=== PATIENT | male | born 1955 | race Caucasian/White ===

== ENCOUNTER 2025-04-26 11:52 | Emergency (ER) | payer MEDICARE, OTHER, SELFPAY ==
[2025-04-26] VITALS (43 sets, daily range): BP systolic 118–154; BP diastolic 31–77; PULSE 64–80; RESP 15–20; TEMP 36.6; O2SAT 90–100
--- NOTE | ~2025-04-26 | CT_ITS ---
EXAMINATION: CT abdomen pelvis w con DATE: 04/26/2025 13:56 INDICATION: Status post prostatectomy. Suprapubic pain. TECHNIQUE: Computed tomography (CT) of the abdomen and pelvis was performed with 100 cc Omnipaque 350 intravenous contrast. The dose-length product was 650.22 mGy-cm. Automated exposure control and iterative reconstruction technique were employed. COMPARISON: None. FINDINGS: There is right middle and lower lobe airspace consolidation. Heart size normal. There is fr ee fluid in the right upper abdomen and pelvis. There are is loculated fluid along the pelvic sidewal ls. Cannot exclude abscess. Small amount of free intraperitoneal air, consistent with recent surgery. There are focal hyperdensities dependently in the gallbladder, suspicious for stones. There is atherosclerosis of the aorta. No lymphadenopathy. Nonobstructive bowel gas pattern. Mild annamaria ateral hydronephrosis. Fatty infiltration of the liver. Gallbladder is distended. The spleen, pancrea s, adrenal glands are unremarkable. No lymphadenopathy. There is gas in the inguinal canals bilateral ly, also likely from recent surgery. IMPRESSION: 1. Gas in the inguinal canals with free fluid in the abdomen and trace free intraperitoneal air. Thes e findings are compatible with recent surgery. More loculated fluid along the pelvic sidewalls is non specific. This may be postsurgical as well, although hemorrhage or infection are not excluded. 2: Right middle and bilateral lower lobe airspace consolidation which may represent atelectasis or d eveloping pneumonia. 3: Mild bilateral hydronephrosis. 4: Possible cholelithiasis. Reviewed, dictated and finalized at location A. IMPRESSION: 1. Gas in the inguinal canals with free fluid in the abdomen and trace free int raperitoneal air. These findings are compatible with recent surgery. More locul ated fluid along the pelvic sidewalls is nonspecific. This may be postsurgical as well, although hemorrhage or infection are not excluded. 2: Right middle and bilateral lower lobe airspace consolidation which may repr esent atelectasis or developing pneumonia. 3: Mild bilateral hydronephrosis. 4: Possible cholelithiasis.
--- OUTSIDE RECORDS SUMMARY | 2025-04-26 12:04 | XMS_ITS | Clinical Summary ---
Author Organization [facility] Address [address] [place] [address] Care Team Providers Care Interactive Digital Media Specialist Name Role Phone Unavailable Primary Care Provider Unavailabl e Social History Tobacco Use Types Packs/Day Years Used Date Smoking Tobacco: Never Assessed Sex and Gender Information Value Date Recorded Sex Assigned at Not on file Legal Sex Male 3:24 PM PST Gender Identity Not on file Sexual Orientation Not on file Plan of Treatment Not on file
--- OUTSIDE RECORDS SUMMARY | 2025-04-26 12:04 | XMS_ITS | Encounter Summary ---
Author Organization [facility] Healthcare Address [address] [place] [address] Care Team Providers Care Chief Librarian Circulation Department Name Role Phone Keagan Saldana MD Primary Care Provider [phone] Mikel Villeda MD Unavailable [phone] Alan Medina MD Unavailable [phone] Wali Boyce MD Unavailable [phone] Antonio Reddy MD Unavailable [phone] Andrea Sam MD Unavailable [phone] Sony Marina MD PhD Unavailable [phone] Luther Cameron MD Unavailable [phone] Encounter Details Date Type Department Care Team (Late st Contact Info) Description 01/06/2021 Telephone [facility] [address] [place] [id number] Margo Velarde, RT Social History Tobacco Use Types Packs/Day Years Used Date Smoking Tobacco: Never Smokeless Tobacco: Never Alcohol Use Standard Drinks/Week Comments Yes 2 (1 standard drink = 0.6 oz pur e alcohol) once weekly AUDIT-C Answer Date Recorded Frequency of Alcohol Consumption 2-4 times a tue08/01/2019 Average Number of Drinks Not on file 019 Frequency of Binge Drinking Not on file 07/05 PHQ-2 Answer Date Recorded PHQ-2 Total Score (If total score is 3 or more points, staff should administer the PHQ-9) 0 11/05/2020 Sex and Gender Information Value Date Recorded Sex Assigned at Not on file Legal Sex Male 1:30 PM CDT Gender Identity Male 03/11/2021 9:12 AM CDT Sexual Orientation Straight 03/11/2021 9: 12 AM CDT documented as of this encounter Plan of Treatment Not on file documented as of this encounter Visit Diagnoses Not on filedocumented in this encounter Additional Health Concerns Infection Onset Date Last Indicated Resolved Time COVID: Recovered Comment:09/24/20 covid 19 RNA= positive from outside facility No hospitalization 10/04/2020 01/26/2021 02/01/2021 3:05 AM C DT Exposure, COVID-19 Comment:Added automatically based on COVID19 lab answers indicating exposure risk 03/22/2022 03/22/2022 03/22/2022 9:30 PM C DT COVID: Suspected 03/22/2022 03/22/2022 03/22/2022 9:30 PM CDT COVID19 03/22/2022 03/22/2022 04/01/2022 3:05 AM CDT COVID: Recovered Comment:Added based on recent COVID infection. 04/01/2022 04/09/2022 07/30/2022 3:05 AM C DT COVID: Suspected 10/10/2024 10/10/2024 10/10/2024 7:33 PM PLATING INSPECTOR COVID19 10/10/2024 10/10/2024 10/20/2024 3:05 AM PLATING INSPECTOR COVID: Recovered Comment:Added based on recent COVID infection. 10/20/2024 10/23/2024 01/18/2025 3:05 AM C DT documented as of this encounter Care Teams Chief Librarian Circulation Department Relationship Specialty Start Date End Date [place] [address] PCP - General Family Medicine 11/05/20 Mikel Villeda MD [address] [place] [address] Surgeon Plastic Surgery 11/23/21 Alan Medina MD [address] [place] [address] Certified Registered Locksmith Cardiology 11/23/21 Wali Boyce MD [address] [place] [address] Urologist Urology 11/23/21 Antonio Reddy MD [address] [place] [address] Urologist Urology 11/23/21 Andrea Sma MD [address] [place] [address] Care Program Director Gastroenterology 11/23/21 Sony Marina MD PhD [address] [place] [address] Radiation Oncologist Radiation Oncology 02/01/25 [place] [address] [address] Consulting Physician Urology 02/01/25 documented as of this encounter
--- OUTSIDE RECORDS SUMMARY | 2025-04-26 12:04 | XMS_ITS | Encounter Summary ---
Author Organization [facility] Health Address [address] [place] [address] Care Team Providers Care Radio Reporter Name Role Phone Unavailable Primary Care Provider Unavailabl e Prior Encounters Date Type Department Care Team Description 10/22/2019 Converted 13x Documents [facility] [address] [place] [phone] <No scans attached> 10/22/2019 Converted CPS Chart Documents [facility] [address] [place] [phone] <No scans attached> Plan of Treatment Not on file Procedures Procedure Name Priority Date/Time Associated Diagnosis Comments 20 MOD AMALGAM 3 SURFACE Routine 013 2:00 AM DANCE COACH 19 AMALGAM 3 SURFACE Routine 013 2:00 AM DANCE COACH 17 AMALGAM 3 SURFACE Routine 013 2:00 AM DANCE COACH 31 MO AMALGAM 2 SURFACE Routine 10/28/19 13 2:00 AM DANCE COACH 21 DO AMALGAM 2 SURFACE Routine 10/28/19 13 2:00 AM DANCE COACH 14 ENDODONTIC THERAPY, MOLAR TOOTH (EXCLUDING FINAL PROTESTANT) Routine 10/28/2012 2:00 AM DANCE COACH TOPICAL APPLICATION OF FLUORIDE VARNISH Routine 10/28/2012 2:00 AM DANCE COACH PROPHYLAXIS - ADULT Routine 10/28/2012 2 :00 AM DANCE COACH COMPREHENSIVE ORAL EVALUATION - NEW OR ESTABLISHED PATIENT Routine 10/28/2012 2:00 AM DANCE COACH PANORAMIC RADIOGRAPHIC IMAGE Routine 10/28/2012 2:00 AM DANCE COACH INTRAORAL - COMPREHENSIVE SERIES OF RADIOGRAPHIC IMAGES Routine 10/28/2012 2:00 AM DANCE COACH INTRAORAL PHOTO Routine 10/28/2012 2:00 AM DANCE COACH INTRAORAL PHOTO Routine 10/28/2012 2:00 AM DANCE COACH INTRAORAL PHOTO Routine 10/28/2012 2:00 AM DANCE COACH INTRAORAL PHOTO Routine 10/28/2012 2:00 AM DANCE COACH Visit Diagnoses Not on file
--- OUTSIDE RECORDS SUMMARY | 2025-04-26 12:05 | XMS_ITS | Encounter Summary ---
Author Organization [facility] Healthcare Address [address] [place] [address] Care Team Providers Care Fuel Island Attendant Name Role Phone Keagan Saldana MD Primary Care Provider [phone] Mikel Villeda MD Unavailable [phone] Alan Medina MD Unavailable [phone] Wali Boyce MD Unavailable [phone] Antonio Reddy MD Unavailable [phone] Andrea Sam MD Unavailable [phone] Encounter Details Date Type Department Care Team (Late st Contact Info) Description 07/07/2023 1:23 PM CDT Hospital Encounter [facility] [address] [phone] Social History Tobacco Use Types Packs/Day Years Used Date Smoking Tobacco: Never Cigarettes Smokeless Tobacco: Current Chew Alcohol Use Standard Drinks/Week Comments Yes 2 (1 standard drink = 0.6 oz pur e alcohol) once weekly AUDIT-C Answer Date Recorded Q1: How often do you have a drink containing alc ohol? Monthly or less 04/17/2025 Q2: How many drinks containi ng alcohol do you have on a typical day when you are drinking? 1 or 2 04/17/2025 Q3: How often do you have si x or more drinks on one occasion? Never 04/17/2025 PHQ-2 Answer Date Recorded PHQ-2 Total Score (If total score is 3 or more points, staff should administer the PHQ-9) 0 12/17/2024 Personal Safety Answer Date Recorded Have you ever been in or are you currently in a harmful physical or emotional relationship or is someone making you feel afraid or unsafe? Denies 04/24/2025 Sex and Gender Information Value Date Recorded Sex Assigned at Not on file Legal Sex Male 1:30 PM CDT Gender Identity Male 03/11/2021 9:12 AM CDT Sexual Orientation Straight 03/11/2021 9: 12 AM CDT documented as of this encounter Functional Status * Audit-C Score Answer Date of Assessment Author 1 04/17/2025 6:55 AM CDT Glenn Nuñez RN * Question Answer Date of Assessment Author Q1: How often do you have a drink containing alcohol? Monthly or less 04/17/2025 6:55 AM PRADEEPT Mercy Nuñez RN Q2: How many drinks containing alcohol do you have on a typical day when you are drinking? 1 or 2 04/17/2025 6:55 AM PRADEEPT Mercy Nuñez RN Q3: How often do you have six or more drinks on one occasion? Never 04/17/2025 6:55 AM PRADEEPT Mercy Nuñez RN documented as of this encounter Plan of Treatment Not on file documented as of this encounter Procedures Procedure Name Priority Date/Time Associated Diagnosis Comments XR FOOT RIGHT 3 OR MORE VIEWS Schedule Routine, Read Routine (OP Routine) 07/07/2023 1:31 PM CDT Osteoarthritis of first metatarsophalangeal (MTP) joint of right foot documented in this encounter Results * XR Foot Right 3+ Vw (07/07/2023 1:31 PM CDT) Anatomical Region Laterality Modality Lower Extremities, Foot Right Computed Radiography Narrative 07/07/2023 1:31 PM CDT Right foot three views weight-bearing shows significant arthritis hallux MTP joint with significant large dorsal spurring as well. There is almost no joint space evident radiographically. No significant change from the 08/30/2022 radiographs. Marcello Storey Jr., MD IMG XR PROCEDURES F inal Result documented in this encounter Visit Diagnoses Not on filedocumented in this encounter Additional Health Concerns Infection Onset Date Last Indicated Resolved Time COVID: Suspected 10/10/2024 10/10/2024 10/10/2024 7:33 PM LEAD MINER BLASTING COVID19 10/10/2024 10/10/2024 10/20/2024 3:05 AM LEAD MINER BLASTING COVID: Recovered Comment:Added based on recent COVID infection. 10/20/2024 10/23/2024 01/18/2025 3:05 AM C DT documented as of this encounter Care Teams Fuel Island Attendant Relationship Specialty Start Date End Date Keagan Saldana MD [address] [place] [address] PCP - General Family Medicine 11/05/20 Mikel Villeda MD [address] [place] [address] Surgeon Plastic Surgery 11/23/21 Alan Medina MD [address] [place] [address] Trackmobile Operator Cardiology 11/23/21 Wali Boyce MD [address] [place] [address] Urologist Urology 11/23/21 Antonio Reddy MD [address] [place] [address] Urologist Urology 11/23/21 Andrea Sam MD [address] [place] [address] [place] [address] Kitchen Clerk Gastroenterology 11/23/21 documented as of this encounter
--- OUTSIDE RECORDS SUMMARY | 2025-04-26 12:06 | XMS_ITS | Encounter Summary ---
Author Name [facility] Organization [facility] Address [address] [place] [address] Care Team Providers Care Carton And Can Supply Supervisor Name Role Phone BREONNA BRUMFIELD Primary Care Provider UnavailRICARDO Martínez Unavailable Unavailable VELIA ALLEN Primary Care Provider GAY Kirk Unavailable Unavailable CURTIS PRESTON Unavailable Unavailable JAMES BARNEY Unavailable Unavailable CARMINA JULIO Unavailable Unavailable THIERRY ROSAS Unavailable Unavailable BIANCA MARS Unavailable Unavailable Insurance Providers: All historical and current Section Date Range: From patient's date of to the date document was created. This section includes the names of all active insurance providers for the patient. Insurance Provider Type of Coverage Plan Name Start of Policy Coverage End of Policy Coverage Group Number Member ID Insurance Provider's Telephone Number Policy Rey's Name Patient's Relationship to Policy Rey MEDICARE (WNR) MEDICARE (M) PART A Jan 01, 2015 PART A [id number] KIRK MARTINEZ PATIENT MEDICARE (WNR) MEDICARE (M) PART A Jan 01, 2015 PART A [id number] KIRK MARTINEZ PATIENT [facility] Jan 01, 2015 [facility] [id number] [facility] [address] [facility], 2018 [facility] [id number] KIRK MARTINEZ PATIENT [facility] MEDICAL ACTIV E DUTY NA KIRK MARTINEZ PATIENT Selected Encounter This section includes the information on record at [place] for the Encounter. Date/Time Encounter Type Encounter Description Reason Pro vider Source Oct 05, 2024 11:55 AM Outpatient Encounter COMMUNITY CARE CONSULT IHE Encounter Template Text not used by VA Plan of Treatment: Future Appointments (+ 6 months) and Future Tests (+/- 45 days) The Plan of Treatment section includes future care activities for the patient from all [place] treatmentfacilities. This section includes future appointments and future orders which are active, pending or scheduled. Future Appointments This section includes appointments that were scheduled to occur 6 months from the date of the Encounter, up to a maximum of 20 appointments. The data comes from all [place] treatment facilities. Appointment Date/Time Appointment Type Appointme nt Facility Name Oct 29, 2024 01:00 PM AMBULATORY - NONE [facility] Social History: Smoking Status (Most current) and Tobacco Use (All prior to encounter date) This section includes the most current, and the historical, smoking and tobacco- related health factors from the [place] facility where the Encounter took place. Current Smoking Status This section includes the most current smoking, or tobacco-related health factor, from the [place] facility where the Encounter took place. Date/Time Current Smoking Status Comment Vanessa ity Dec 29, 2022 01:15 PM VA-TOBACCO USER EVERY DAY [facility] Tobacco Use History This section includes a history of the smoking, or tobacco-related health factors, that were collected on or before the date of the Encounter. The data comes from the [place] facility where the Encounter took place. Date/Time Smoking Status/Tobacco Use Comment F acility Dec 29, 2022 01:15 PM VA-TOBACCO USE 5 TO 15 YEARS [facility] Dec 29, 2022 01:15 PM VA-TOBACCO USE ADVICE [facility] Dec 29, 2022 01:15 PM VA-TOBACCO USE VISUAL SUPERVISOR NO [facility] Dec 29, 2022 01:15 PM VA-TOBACCO USE MED NO [facility] Dec 29, 2022 01:15 PM VA-TOBACCO USER EVERY DAY [facility] Jan 01, 2022 01:15 PM VA-TOBACCO NEVER USED [facility] Dec 17, 2020 01:15 PM VA-TOBACCO DOESNT USE WI 30 MIN WAKEUP [facility] Dec 17, 2020 01:15 PM VA-TOBACCO USE 5 TO 15 YEARS [facility] Dec 17, 2020 01:15 PM VA-TOBACCO USE ADVICE [facility] Dec 17, 2020 01:15 PM VA-TOBACCO USE VISUAL SUPERVISOR NO [facility] Dec 17, 2020 01:15 PM VA-TOBACCO USE MED NO [facility] Dec 17, 2020 01:15 PM VA-TOBACCO USER EVERY DAY [facility] Encounter Notes: All associated encounter notes This section contains the clinical notes associated to the Encounter. Date/Time Encounter Note(s) Provider Source Oct 05, 2024 11:55 AM NONVA NOTE: LOCAL TITLE: COMMUNITY CARE-REQUEST FOR SERVICE NOTE [facility] STANDARD TITLE: NONVA NOTE DATE OF NOTE: OCT 05, 2024@11:55 ENTRY DATE: OCT 05, 2024@11:55:13 AUTHOR: RAN NAVARROIGNER: URGENCY: STATUS: COMPLETED Request for Services (RFS) documentation has been sent for scanning to [facility] Community Care Consult: COMMUNITY CARE-COMMUNITY CARE-[facility] DENTAL GEN Consult No: [id number] Date sent to scanning: Oct A Request for Service (RFS) form [id number] has been received which includes the following: Care Requested: [id number] PARTIAL DENTURE RETRAINER-CROWN TOOTH #30,28 [id number] PARTIAL DENTURE PONTIC PORCELALIN TOOTH #29 [id number] BUILDUP, INCLUDING ANY PINS TOOTH #28,30 ADA, note, xray in preauth folder Date VA received request: Oct Date service required: Oct Requesting Community Provider Information: Name of Ordering Provider: Dr Leah Barrios [facility] Leah Barrios [address] [place] [address] Group Specialty: Dentist - [place] Network: [facility] Region 2 /ivet/ [facility] RN Signed: 10/05/2024 12:03 Receipt Acknowledged By: 10/08/2024 10:18 /ivet/ Bryanna Huerta DDS Staff Dentist [facility]ARR[facility]
--- NOTE | 2025-04-26 12:07 | ED_ITS ---
HPI - Abdominal Pain General Chief Complaint: Urogenital-Male Stated Complaint: abdominal pain after surgery Time Seen by Provider: 04/26/25 12:04 Source: patient Mode of arrival: ambulatory Limitations: no limitations History of Present Illness HPI narrative: 69-year-old male with a history of hypertension, dyslipidemia, arthritis had robotic assisted prostatectomy on 04/17/2025. Subsequently the patient developed -- lower abdominal pain on 04/23/2025. -- Hematuria with pink urine. -- [facility] where he had his Damon's catheter discontinued. He had blood work which revealed mildly elevated white cell count. UA was noted to have increased white cell with 1+ leukocyte esterase and negative nitrite. Urine culture was noted to be negative. Patient received pain medication and oxybutynin. He continues to have lower abdominal pain. Has pink urine. No fever or chills. Pain is intermittent and appears to decrease on standing up. No radiation of the pain. No exacerbating or relieving factors. ecchymosis of the lower abdomen and bilateral flanks MD elicited complaint: abdominal pain Pertinent past history: other ( Status post prostatectomy) Onset (ago): day(s) ( 3 days) Pain Consistency: intermittent Severity: severe Quality: cramping Radiation: none Exacerbating factors: nothing Relieving factors: nothing Associated symptoms: denies other symptoms Related Data Allergies Allergy/AdvReac Type Severity Reaction Status Date / Time No Known Allergies Allergy Verified 04/26/25 12:09 Review of Systems 2 Review of Systems: All systems reviewed & are unremarkable except as noted in HPI and below Constitutional: Constitutional: Reports as per HPI and Reports no additional constitutional complaints Eyes: Eyes: Reports as per HPI and Reports no additional eye complaints ENT: Reports system reviewed and no additional complaints, except as documented and Reports as per HPI Cardiovascular: Cardiovascular: Reports as per HPI and Reports no additional cardiovascular complaints Respiratory: Respiratory: Reports as per HPI and Reports no additional respiratory complaints Gastrointestinal: Gastrointestinal: Reports as per HPI, Reports no additional gastrointestinal complaints and Reports abdominal pain Genitourinary: Genitourinary: Reports no additional male genitourinary complaints, Reports as per HPI and Reports hematuria Musculoskeletal: Musculoskeletal: Reports no additional musculoskeletal complaints and Reports as per HPI Integumentary/Breasts: Skin/Breast: Reports system reviewed and no additional complaints, except as docu and Reports as per HPI Comments: extensive ecchymoses over the lower abdomen and bilateral flanks Neurologic: Reports system reviewed and no additional complaints, except as documented and Reports as per HPI Psychiatric: Psychiatric: Reports no additional psychiatric complaints and Reports as per HPI Endocrine: Endocrine: Reports no additional endocrine complaints and Reports as per HPI Hematologic/Lymphatic: Hematologic/Lymphatic: Reports no additional hematologic/lymphatic complaints and Reports as per HPI Allergic/Immunologic: Allergic/Immunologic: Reports no additional allergic/immunologic complaints and Reports as per HPI [facility] Past Medical History Medical History (Updated 04/26/25 @ 15:56 by Brant Crowder MD) Anxiety Dyslipidemia Hypertension Surgical History Surgical History (Updated 04/26/25 @ 12:25 by Brant Crowder MD) H/O prostatectomy Exam 2 Narrative: afebrile. vitals are stable. Const: General: ill appearing Orientation/consciousness: patient oriented x3 HENMT: Head: normal to inspection Ears: external ears normal F kady/Nose/Sinus: Normal external nose present Face and sinus: normal facial exam Mouth: Yes Normal oral and palatal mucosa present Throat: posterior oropharynx normal Eyes: Conjunctivae: conjunctivae normal Pupils: Equal, round and reactive pupils present EOM: EOMs intact bilaterally Direct Ophthalmoscopy: no photophobia Neck: Neck: normal visual inspection, no lymphadenopathy and no meningeal signs Resp: Effort & Inspection: normal respiratory effort Auscultation: clear to auscultation bilaterally Cardio: Rate: regular rate Rhythm: regular rhythm GI: GI Palp: Yes Soft to palpation Other: Lower abdominal tenderness with rebound. No flank or CVA angle tenderness. Bowel sounds are present normally. : General: Yes no CVA tenderness Back/Spine/Pelvis: Back: no CVA tenderness Skin: Other: Extensive ecchymosis of the lower abdomen and bilateral fla Neuro: General: patient oriented x3, moves all extremities, no meningeal signs, no focal motor deficits and CN's II-XI intact bilaterally Cranial nerves: Yes Nystagmus not present Speech: normal speech Extrem: General: normal to inspection and no clubbing, cyanosis or edema Psych: Mental Status: mental status grossly normal Affect: normal affect Attitude: cooperative Course Course Emergency Course: lower abdominal pain-- patient is noted to Have a WBC count of 11.6. got a CT of abdomen and pelvis which revealed mild hydronephrosis. No other acute findings. Patient had a post void urine of 560 acute on chronic renal failure with a BUN/creatinine of 22/1.84 which is up from his baseline creatinine of 1.2. Give the flu patient 1 L of IV fluids. Anemia with an H&H of . Discussed with Dr. Hsu who advised Damon's catheterization and antibiotics ceftriaxone followed by cefdinir for 1 week. passed Damon's catheter on the 1st attempt without any difficulty. Vital Signs Vital signs: Vital Signs Temperature 36.6 C 04/26/25 11:52 Pulse Rate 66 04/26/25 11:52 Respiratory Rate 16 04/26/25 11:52 Blood Pressure 124/53 L 04/26/25 11:52 Pulse Oximetry 97 04/26/25 11:52 Oxygen Delivery Room Air 04/26/25 11:52 Temperature 36.6 C 04/26/25 11:52 Pulse Rate 66 04/26/25 11:52 Respiratory Rate 16 04/26/25 11:52 Blood Pressure 124/53 L 04/26/25 11:52 Pulse Oximetry 97 04/26/25 11:52 Oxygen Delivery Room Air 04/26/25 11:52 MDM - Abdominal Pain MDM Narrative Medical decision making narrative: Abdominal pain retention of urine status post prostatectomy urinary tract infection right lung atelectasis acute renal failure anemia Lab Data 04/26/25 12:37 04/26/25 12:37 Labs: Lab Results 04/26/25 04/26/25 Range/Units 12:28 12:37 WBC 11.6 H (4.8-10.8) K/mm3 RBC 3.56 L (4.70-6.10) M/mm3 Hgb 11.0 L (12.4-15.3) g/dL Hct 32.9 L (37.0-46.0) % MCV 92.4 (78.0-102.0) fL MCH 30.9 (27.0-31.0) pg MCHC 33.4 (32-36) g/dL RDW 13.4 (11.6-14.4) % Plt Count 252 (150-420) K/mm3 MPV 9.4 (8.7-11.0) fl Immature Gran % (Auto) 0.8 H (0.0-0.0) % Neut % (Auto) 78.4 H (50.0-70.0) % Lymph % (Auto) 7.1 L (18.0-42.0) % [place] % (Auto) 5.5 (2.0-11.0) % Eos % (Auto) 7.9 H (1.0-6.0) % Baso % (Auto) 0.3 (0.0-1.0) % Lymph # (Auto) 0.82 L (1.10-4.50) K/mm3 [place] # (Auto) 0.64 (0.10-0.90) K/mm3 Eos # (Auto) 0.91 H (0.02-0.50) K/mm3 Baso # (Auto) 0.03 (0.00-0.10) K/mm3 Abs Immat Gran (auto) 0.09 H (0.00-0.00) K/mm3 Absolute Neuts (auto) 9.06 H (1.70-7.20) K/mm3 Absolute Nucleated RBC 0.00 (0.00-0.00) K/mm3 Nucleated RBC % 0.0 (0-0.0) % PT 11.2 (9.50-12.1) Seconds INR 1.0 APTT 38.4 H (23.9-30.70) Sec Sodium 135 L (137-145) mmol/L Potassium 4.2 (3.4-5.0) mmol/L Chloride 101 (98-107) mmol/L Carbon Dioxide 28 (22-30) mmol/L Anion Gap 6 (4-12) mmol/L BUN 22 H (9-20) mg/dL Creatinine 1.84 H (0.7-1.3) mg/dL Estim Creat Clear Calc 38 ml/min Estimated GFR 37 L (59 - ) Glucose 107 (65-110) mg/dL Calculated Osmolality 283 L (285-295) mOsm/kg Lactic Acid 0.7 (0.4-2.0) mmol/L Calcium 8.9 (8.4-10.2) mg/dL Total Bilirubin 1.8 H (0.2-1.3) mg/dL AST 33 (17-59) U/L ALT 28 (6-50) U/L Alkaline Phosphatase 88 (38-126) U/L Total Protein 6.1 L (6.3-8.2) g/dL Albumin 3.5 (3.5-5.1) g/dL Lipase 15 L (23-300) U/L Urine Color Dark orange (Yellow) Urine Appearance Clear (Clear) Urine pH 5.5 (5.0-8.0) Ur Specific [place] <= 1.005 L (1.010-1.020) Urine Protein Negative (Negative) Urine Glucose (UA) Trace H (Negative) Urine Ketones Negative (Negative) Ur Blood (Man) 2+ H (Negative) Urine Nitrate Positive H (Negative) Urine Bilirubin Negative (Negative) Urine Urobilinogen 1.0 (0.2-1.0) mg/dL Leukocyte Esterase Rfl Negative (Negative) [place]IS/UL Urine RBC 6-10 H (0-2) /hpf Urine WBC None seen (0-3) /hpf Ur Squamous Epith Cells Few (Few) /hpf Urine Bacteria 1+ H (None) /hpf Imaging Data Radiologist's impression: ITS Impressions Abdomen/Pelvis CT 04/26/25 13:59 IMPRESSION: 1. Gas in the inguinal canals with free fluid in the abdomen and trace free intraperitoneal air. These findings are compatible with recent surgery. More loculated fluid along the pelvic sidewalls is nonspecific. This may be postsurgical as well, although hemorrhage or infection are not excluded. 2: Right middle and bilateral lower lobe airspace consolidation which may represent atelectasis or developing pneumonia. 3: Mild bilateral hydronephrosis. 4: Possible cholelithiasis. Discharge Plan Discharge Clinical Impression: Acute retention of urine Urinary tract infection Qualifiers: Urinary tract infection type: site unspecified Hematuria presence: with hematuria Qualified Code(s): N39.0 - Urinary tract infection, site not specified Acute on chronic renal failure Qualifiers: Acute renal failure type: unspecified Chronic kidney disease stage: stage 3 (moderate) Chronic kidney disease stage 3 subtype: stage 3b (GFR 30-44) Q ualified Code(s): N17.9 - Acute kidney failure, unspecified Patient Disposition: Home Condition: Stable Instructions: Antibiotic Form, Urinary Retention in Men (ED), Urinary Tract Infection in Men (ED), Damon Catheter Placement and Care (ED) Patient Language: Mongolian Prescriptions: New cefdinir 300 mg capsule 300 mg PO Q12H Qty: 14 0RF Follow-up/Referrals: Les,MD Keagan [Primary Care Provider] - Time of Disposition: 15:57
--- OUTSIDE RECORDS SUMMARY | 2025-04-26 12:07 | XMS_ITS | Clinical Summary ---
Author Organization [facility] Address [address] [place] [address] Phone Care Team Providers Care Set Designer Name Role Phone Provider, None Primary Care Provider Unavailabl e Allergies No known active allergies Medications Escitalopram Oxalate (LEXAPRO) 5 MG Tablet Take 5 mg by mouth daily. Active Meloxicam 15 MG Tablet Take 15 mg by mouth daily. Active atorvastatin (LIPITOR) 20 MG Tablet Take 20 mg by mouth daily. Active Active Problems No known active problems Immunizations Immunization Administration Dates Next Due Influenza Vaccine greater than 3 yrs 07/12/2016 Social History Tobacco Use Types Packs/Day Years Used Date Smoking Tobacco: Never Tobacco Cessation:Counseling Given: No Alcohol Use Standard Drinks/Week Comments Not Asked 0 (1 standard drink = 0.6 oz pur e alcohol) Sex and Gender Information Value Date Recorded Sex Assigned at Not on file Legal Sex Male 1:12 PM MAILROOM MESSENGER Gender Identity Not on file Sexual Orientation Not on file Last Filed Vital Signs Vital Sign Reading Time Taken Comments Blood Pressure 147/80 11/27/2016 1:24 PM MAILROOM MESSENGER Pulse 72 11/27/2016 1:24 PM MAILROOM MESSENGER Temperature 36.8 C (98.3 F) 11/27/2016 1:24 PM MAILROOM MESSENGER Respiratory Rate 16 11/27/2016 1:24 PM MAILROOM MESSENGER Oxygen Saturation 96% 11/27/2016 1:24 PM MAILROOM MESSENGER Inhaled Oxygen Concentration - - Weight 90.7 kg (200 lb) 11/27/2016 1:24 PM MAILROOM MESSENGER Height 185.4 cm (6' 1) 11/27/2016 1:24 PM MAILROOM MESSENGER Body Mass Index 26.39 11/27/2016 1:24 PM MAILROOM MESSENGER Plan of Treatment Health Maintenance Due Date Last Done Comments Hepatitis C Virus (HCV) Screening 1955 TdaP Immunization 1955 Cologuard 12/03/2000 Colonoscopy 12/03/2000 Colorectal Cancer Screening 12/03/2000 Immunochemical Fecal Occult Blood 12/03/2000 Pneumococcal Immunization (5 0+ years) (1 of 1 - PCV) 12/03/2005 Zoster Immunization (2 of 2) 09/18/2020 07/24/2020 SARS-COV-2 Immunization (4 - season) 2024 08/13/2021, 01/16/2021, 12/26/2020 Influenza Immunization (#1) 06/03/202507/04, 07/12/2016 Respiratory Syncytial Virus (RSV) Immunization (Adult) (1 - 1-dose 75+ series) 12/03/2030 Hepatitis B Immunization Aged Out No longer eligible based on patient's age to complete this topic Human Papillomavirus (HPV) Immunization Aged Out No longer eligible b ased on patient's age to complete this topic Meningococcal Immunization (ACWY) Aged Out No longer eligible b ased on patient's age to complete this topic Rotavirus Immunization Aged Out No lo nger eligible based on patient's age to complete this topic Care Teams Set Designer Relationship Specialty Start Date End Date Provider, None [place] PCP - General 11/27/16
--- OUTSIDE RECORDS SUMMARY | 2025-04-26 12:07 | XMS_ITS | Encounter Summary ---
Author Name [facility] Address [address] [place] [address] Care Team Providers Care Printer'S Devil Name Role Phone VELIA ALLEN Primary Care Provider GAY Kirk Unavailable Unavailable CURTIS PRESTON Unavailable Unavailable JAMES BARNEY Unavailable Unavailable CARMINA JULIO Unavailable Unavailable THIERRY ROSAS Unavailable Unavailable BIANCA MARS Unavailable Unavailable BREONNA BRUFMIELD Primary Care Provider UnavailRICARDO Martínez Unavailable Unavailable Insurance Providers: All historical and [...] PART A Jan 01, 2015 PART A [id number] KIRK MARTINEZ PATIENT MEDICARE (WNR) MEDICARE (M) PART A Jan 01, 2015 PART A [id number] [phone] KIRK MARTINEZ PATIENT [facility] Jan 01, 2015 [facility] [id number] [facility] [address] [facility], [id number] KIRK MARTINEZ PATIENT [facility] MEDICAL ACTIV E DUTY NA KIRK MARTINEZ PATIENT Selected Encounter This section includes the information on record at [place] for the Encounter. Date/Time Encounter Type Encounter Description Reason Pro vider Source Oct 08, 2024 10:59 AM Outpatient Encounter COMMUNITY CARE CONSULT IHE Encounter Template Text not used by VA Plan of Treatment: Future Appointments (+ 6 months) and Future Tests (+/- 45 days) The Plan of Treatment section includes future care activities for the patient from all [place] treatmentfacilities. This section includes future appointments and future orders which are active, pending or scheduled. Future Appointments This section includes appointments that were scheduled to occur 6 months from the date of the Encounter, up to a maximum of 20 appointments. The data comes from all [place] treatment facilities. Appointment Date/Time Appointment Type Appointme nt Facility Name Oct 29, 2024 01:00 PM AMBULATORY - NONE [facility] Social History: Smoking Status (Most current) and Tobacco Use (All prior to encounter date) This section includes the most current, and the historical, smoking and tobacco- related health factors from the [place] facility where the Encounter took place. Current Smoking Status This section includes the most current smoking, or tobacco-related health factor, from the [place] facility where the Encounter took place. Date/Time Current Smoking Status Comment Vanessa ity Dec 29, 2022 01:15 PM VA-TOBACCO USER EVERY DAY [facility] Tobacco Use History This section includes a history of the smoking, or tobacco-related health factors, that were collected on or before the date of the Encounter. The data comes from the [place] facility where the Encounter took place. Date/Time Smoking Status/Tobacco Use Comment F acility Dec 29, 2022 01:15 PM VA-TOBACCO USE 5 TO 15 YEARS [facility] Dec 29, 2022 01:15 PM VA-TOBACCO USE ADVICE [facility] Dec 29, 2022 01:15 PM VA-TOBACCO USE MANAGER SOCIAL WORK NO [facility] Dec 29, 2022 01:15 PM VA-TOBACCO USE MED NO [facility] Dec 29, 2022 01:15 PM VA-TOBACCO USER EVERY DAY [facility] Jan 01, 2022 01:15 PM VA-TOBACCO NEVER USED [facility] Dec 17, 2020 01:15 PM VA-TOBACCO DOESNT USE WI 30 MIN WAKEUP [facility] Dec 17, 2020 01:15 PM VA-TOBACCO USE 5 TO 15 YEARS [facility] Dec 17, 2020 01:15 PM VA-TOBACCO USE ADVICE [facility] Dec 17, 2020 01:15 PM VA-TOBACCO USE MANAGER SOCIAL WORK NO [facility] Dec 17, 2020 01:15 PM VA-TOBACCO USE MED NO [facility] Dec 17, 2020 01:15 PM VA-TOBACCO USER EVERY DAY [facility] Encounter Notes: All associated encounter notes This section contains the clinical notes associated to the Encounter. Date/Time Encounter Note(s) Provider Source Oct 08, 2024 10:59 AM LETTERS: LOCAL TITLE: [facility]-REQUEST FOR SERVICES (RFS) LETTER STANDARD TITLE: LETTERS DATE OF NOTE: OCT 08, 2024@10:59 ENTRY DATE: OCT 08, 2024@10:59:42 AUTHOR: RAN NAVARROIGNER: URGENCY: STATUS: COMPLETED [facility] [address] [place] [address] [place] [address] Dear Provider, Information: Patient Name: SARAH MARTINEZ Date of : Dec [facility] Dental Service has received the request for [id number] PARTIAL DENTURE RETRAINER-CROWN TOOTH #30,28 [id number] PARTIAL DENTURE PONTIC PORCELALIN TOOTH #29 [id number] BUILDUP, INCLUDING ANY PINS TOOTH #28,30 from you for services that were not originally authorized in the [facility] for this [place]. Upon review, the following determination has been made: Service has been approved. (Authorization #[id number]) Should you have questions, please contact us at [phone] to speak with a patient service writer. As a reminder, if applicable, return medical records within 30 days for routine services. Sincerely, [facility]AN [facility]ARRO [facility]
--- OUTSIDE RECORDS SUMMARY | 2025-04-26 12:07 | XMS_ITS | Clinical Summary ---
Author Organization [facility] Address [address] [place] [address] Care Team Providers Care [employer] Psychologist Name Role Phone Unavailable Primary Care Provider Unavailabl e Medications testosterone (Fortesta) 10 mg/0.5 gram /actuation Gel in Metered-dose Pump Apply 4 pumps to the skin daily as directed. 180 Gram 04/28/2023 1:00 PM CDT 3 Active eszopiclone (LUNESTA) 3 mg Tablet Take 1 Tablet (3 mg) by mouth daily at bedtime. 90 Tablet 08/30/2023 2:08 PM [employer] 3 Active HYDROcodone-ac etaminophen (NORCO) 5-325 mg tablet Take 1-2 Tablets by mouth every 4-6 hours as needed for pain. 50 Tablet 09/02/2023 11:57 AM [employer] 3 Active famotidine (PEPCID) 20 mg tablet Take 1 Tablet (20 mg) by mouth daily. 90 Tablet 3 10/04/2023 12:08 PM [employer] 3 Active clonazePAM (KlonoPIN) 0.5 mg Tablet Take 0.5-1 tablet by mouth daily as needed for anxiety. 14 Tablet 2 01/17/2024 12:56 PM CDT 4 Active testosterone 10 mg/0.5 gram /actuation Gel in Metered-dose Pump Place 40 mg ( 4 pumps ) on the skin daily. 90 Gram 5 09/19/2024 2:51 PM [employer] 4 Active methylPREDNISo lone (MEDROL DOSPACK) 4 mg Tablets, Dose Pack Take as directed on package 21 Each 05/01/2024 12:01 PM CDT 4 Active fluticasone propionate (FLONASE) 50 mcg/spray [place], Suspension nasal inhaler Administer 2 sprays in each nostril once daily 16 Gram 6 05/01/2024 12:01 PM CDT 4 Active tamsulosin (FLOMAX) 0.4 mg capsule Take 1 Capsule (0.4 mg) by mouth 2 times daily. 180 Capsule 3 02/26/2025 8:25 AM CDT 4 Active famotidine (PEPCID) 40 mg tablet Take 1 tablet (40 mg total) by mouth nightly 90 Tablet 3 06/26/2024 7:35 PM CDT 4 Active meloxicam (MOBIC) 15 mg tablet Take 1 Tablet (15 mg) by mouth daily at bedtime. 90 Tablet 3 02/26/2025 8:25 AM CDT 5 Active atorvastatin (LIPITOR) 20 mg tablet Take 1 Tablet (20 mg) by mouth daily at bedtime. 90 Tablet 3 02/26/2025 8:25 AM CDT 5 Active busPIRone (BUSPAR) 5 mg tablet Take 1 tablet (5 mg total) by mouth 3 (three) times a day as needed (anxiety/panic attack) 30 Tablet 2 12/17/2024 4:36 PM CDT 5 Active azithromycin (ZITHROMAX) 250 mg tablet TAKE 2 TABLETS BY MOUTH A SINGLE DOSE ON DAY 1, THEN TAKE 1 TABLET BY MOUTH ONCE DAILY ON DAYS 2 THRU 5. 6 Tablet 02/02/2025 11:51 AM CDT 5 Active escitalopram oxalate (LEXAPRO) 20 mg tablet Take 1 tablet (20 mg total) by mouth daily 90 Tablet 3 02/18/2025 3:47 PM CDT 5 Active escitalopram oxalate (LEXAPRO) 20 mg tablet Take 1 Tablet (20 mg) by mouth daily. 90 Tablet 3 5 Active clonazePAM (KlonoPIN) 0.5 mg Tablet Take 1 tablet (0.5 mg total) by mouth daily as needed for anxiety 14 Tablet 2 04/09/2025 2:37 PM CDT 5 Active eszopiclone (LUNESTA) 3 mg Tablet Take 1 Tablet (3 mg) by mouth daily at bedtime. 90 Tablet 04/25/2025 1:13 PM CDT 5 Active phenazopyridin e 200 mg tablet Take 1 tablet (200 mg total) by mouth 3 (three) times a day for 5 days 15 Tablet 04/25/2025 1:13 PM CDT 5 04/30/20 25 Active eszopiclone (LUNESTA) 3 mg Tablet Take 1 tablet (3 mg total) by mouth nightly 90 Tablet 01/25/2025 12:09 PM CDT 5 04/19/20 25 Discontinu ed(Reorder ) Social History Tobacco Use Types Packs/Day Years Used Date Smoking Tobacco: Never Assessed Sex and Gender Information Value Date Recorded Sex Assigned at Not on file Legal Sex Male 12:24 PM CDT Gender Identity Not on file Sexual Orientation Not on file Plan of Treatment Health Maintenance Due Date Last Done Comments DTAP/TDAP/TD VACCINES (1 - Tdap) 12/03/1974 COLORECTAL SCREENING 12/03/2000 Colorectal Cancer Screening 12/03/2000 FIT-DNA Q 3 years 12/03/2000 FIT/FOBT Q 1 year 12/03/2000 Flex Sig/CT Colonography Q 5 years 12/03/2000 PNEUMOCOCCAL VACCINE 50+ YEARS (1 of 1 - PCV) 12/04/19 06 ZOSTER VACCINE (1 of 2) 12/03/2005 INFLUENZA VACCINE (#1) 2025 RSV VACCINE (60+ or ) (1 - 1-dose 75+ series) 12/03/2030 Insurance [employer]
--- OUTSIDE RECORDS SUMMARY | 2025-04-26 12:07 | XMS_ITS | Continuity of Care Document ---
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 It does not include entries that were removed or entered in error. 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 Condition DoD Contracture, left hand Active 2016 Condition DoD Encounter for screening for malignant neoplasm of prostate Active 2016 Condition DoD Major depressive disorder, single episode, unspecified Active 2016 Condition DoD Elevated prostate specific antigen [PSA] Active 2015 Condition DoD Obstructive sleep apnea (adult) (pediatric) Active 2015 Condition DoD Testicular dysfunction, unspecified Active 2015 Condition DoD Congenital insufficiency of aortic valve Active 2015 Condition DoD Thoracic aortic aneurysm, without rupture Active 2015 Condition DoD Benign prostatic hyperplasia without lower urinary tract symptoms Active 2014 Condition DoD Cervical radiculopathy Active Condition [facility] Cervicalgia Active Condition [facility] Gastroesophageal reflux disease Active Condition [facility] Hypercholesterolemi a Active Condition [facility] Hypertension Active Condition [facility] Insomnia Active Condition [facility] Major depressive disorder Active Condition [facility] Neoplasm of prostate Active Condition [facility] Tinnitus Active Condition [facility] 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 DoD Dermatochalasis of unspecified eye, unspecified eyelid Active Condition DoD Osteoarthritis of knee, unspecified Active Condition DoD Hydrocele, unspecified Active Condition DoD insomnia Active Condition DoD neck pain Active Condition DoD PNEUMONIA Active Condition DoD Aftercare Orthopedic Active Condition DoD EPIDIDYMITIS RIGHT Inactive Condition Do D SCROTUM DISORDERS Active Condition DoD Eyelid Dermatochalasis Active Condition DoD EYELIDS; LACRIMAL SAC, DUCT, GLAND Active Condition DoD OPTIC NERVE Active Condition DoD OSTEOARTHRITIS LOCALIZED PRIMARY - SHOULDER RIGHT ACROMIOCLAVICULAR JOINT Active Condition DoD UPPER RESPIRATORY INFECTION Inactive Condition DoD nasal discharge Inactive Condition DoD headache Inactive Condition DoD cough Inactive Condition DoD Patient Education - Pre-Procedure Teaching Active Condition DoD SHOULDER IMPINGEMENT RIGHT Active Condition DoD joint pain, localized in the shoulder Active Condition DoD visit for: issue repeat prescription Inactive Condition DoD CATARACT SENILE BOTH EYES Active Condition DoD 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 Condition DoD visit for: postsurgical exam Inactive Condition DoD visit for: preoperative exam Inactive Condition DoD DEVIATED NASAL SEPTUM (ACQUIRED) Active Condition DoD BPH LOCAL W/O URINARY OBSTRUCT W/ OTHER LOW URINARY TRACT SX Active Condition DoD visit for: administrative purpose Inactive Condition DoD HYPERTROPHIED NASAL TURBINATE Active Condition DoD 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 DoD TINNITUS SUBJECTIVE Active Condition Do D SENSORINEURAL HEARING LOSS ASYMMETRICAL Active Condition DoD BENIGN SKIN NEOPLASM Inactive Condition DoD ACTINIC KERATOSIS Active Condition DoD GAZE CONVERGENCE PALSY Active Condition DoD ASTIGMATISM Active Condition DoD ATYPICAL CHEST PAIN Inactive Condition D oD PREGLAUCOMA OPEN ANGLE WITH CUPPING OF OPTIC DISCS Active Condition DoD PRESBYOPIA Active Condition DoD REFRACTIVE ERROR - HYPERMETROPIA Active Condition DoD ASTIGMATISM - REGULAR Active Condition DoD seeing double (diplopia) Active Condition DoD CERVICAL RADICULOPATHY C8 (C7-T1) Active Condition DoD visit for: screening exam cardiovascular disorders Inactive Condition DoD CERVICALGIA Active Condition DoD INTERVERTEBRAL DISC DEGENERATION Active Condition DoD MYOFASCIAL PAIN SYNDROME Active Condition DoD chest pain or discomfort Active Condition DoD CHEST PAIN Active Condition Pt has alberts d exertional chest discomfort over the last 2-3 months. FB GXT today showed no evidence of ischemia during exercise, but minor ST segment depression in recovery. No chest pain. Pt had a very hypertensive blood pressure response. Will start Tiazac 180 mg po qd and resume ASA 81 mg po qd. Will give SL NTG prn. Plan for exercise nuclear perfusion study on Tiazac and f/u with Dr. Paez post testing. Pt advised NOT to use Viagra (which he takes prn) with nitrates. DoD AORTIC REGURGITATION CONGENITAL BICUSPID VALVE Active Condition DoD INTERNAL DERANGEMENT OF KNEE LATERAL MENISCUS Active Condition DoD INTERNAL DERANGEMENT OF KNEE MEDIAL MENISCUS Active Condition DoD OSTEOARTHRITIS KNEE Active Condition pt is not a good surgical candidate for another knee scope as the last one failed. appropriate further surgical procedures would involve either HTO or a medial unicondylar arthroplasty. pt is not inuterested in intervention of that scale at this point in time. discussed permanent no running profile - pt will get that paperwork through the [employer]. DoD urinary stream is smaller post-void dribbling Active Condition desires no medi armani management at this time DoD MALE ERECTILE DISORDER Active Condition DoD visit for: screening exam malignant neoplasm prostate Inactive Condition DoD DUPUYTREN'S CONTRACTURE Active Condition DoD SEBACEOUS GLAND DISORDER Active Condition Reassured of be nign nature of several lesions c/w sebaceous hyperplasia on forehead. Treated approx eight lesions w/ hyfrecation. DoD PTOSIS MECHANICAL Active Condition DoD HYPERTENSION (SYSTEMIC) Active Condition Start Tiazac. D o a 5 day BP check with [employer] physician and adjust dose as necessary. DoD HYPERLIPIDEMIA Active Condition Pt wi ll modify diet to try to reduce LDL < 100. If not, will increase Zocor. DoD OSTEOARTHRITIS LOCALIZED PRIMARY - KNEE Active Condition act modcont rom cont strengtheningarthri tis creamsglucosaminens aidsf/u 2 months DoD CERVICAL RADICULOPATHY Active Condition sx now resolve d - no motor dysfunction, only minimal residual sensory changes. I have reviewd MRI personally and with patient - sx correspond with area of herniated disc at C6-7, C7-T1. D/W patient:a. Caution with any motion, activities that DoD Aftercare Inactive Condition cont romco nt ptbike/elliptical swimf/u 3 months DoD joint stiffness of the knee Active Condition 719.56 DoD Other Physical Therapy Active Condition DoD LOOSE BODY IN KNEE Active Condition DoD AORTIC REGURGITATION Active Condition DoD BICUSPID AORTIC VALVE Active Condition DoD PALPITATIONS Active Condition DoD SEBORRHEIC KERATOSIS Inactive Condition cryo to one les ion on back-- reassured of benign nature. DoD visit for: screening exam malignant neoplasm skin Active Condition FBSE performed. Pt with 2 susp lesions- biopsied. no other lesions concerning for NMSC,MM. No evid of recurrence in either biopsy site- L dorsal hand and post neck. Reinforced with pt sun protection and sunscreen use and ABCD's. Pt rec'd to f/u 1 yr or pr DoD SKIN NEOPLASM UNCERTAIN BEHAVIOR Active Condition 3mm papul e w/ depressed center and slight crust on dorsum of left hand. DDx to include AK, SCC, BCC. Biopsy for diagnosis. [facility] Serology Prostate-specific Antigen (PSA) Elevated Active Condition After re-discus nj with Dr. Lam, will attempt trial of Levaquin x 4 wks and repeat PSA. Fu with Dr. Lam. [facility] Medications Combined list of outpatient medications from Department of Defense and Veterans Affairs facilities.Medications provided include 1) outpatient medications from the last 15 months, and 2) patient-reported medications. Medication Details Route Status Patient Instructions Prescription Expires Prescription Number Last Dispense Date Ordering Provider Order Date Order Qty Source ATORVASTATI N CA 40MG TAB TAKE ONE-HALF TABLET BY MOUTH EVERY EVENING ORAL ACTIVE TK ADAMES 2020 [facility] Albert ATORVASTATI N CA 40MG TAB TAKE ONE-HALF TABLET BY MOUTH AT BEDTIME ORAL ACTIVE VELIA VAUGHAN 2016 [facility] CLONAZEPAM (CLONAZEPAM ), 0.5MG, TABLET, ORAL, [place], 500 ea. BOTTLE Active [id number] 2023 14 Pharmac y Data Trans[facility] tion Service Facilit y CLONAZEPAM (CLONAZEPAM ), 0.5MG, TABLET, ORAL, [place]A [place], 500 ea. BOTTLE Active [id number] 2023 14 Pharmac y Data Transac tion Service Facilit y ESCITALOPRA M OXALATE 20MG TAB TAKE ONE TABLET BY MOUTH ONCE A DAY ORAL ACTIVE TK ADAMES 2020 [facility] N ESCITALOPRA M OXALATE 20MG TAB TAKE ONE TABLET BY MOUTH EVERY DAY ORAL ACTIVE VELIA VAUGHAN 2016 [facility] ESZOPICLONE (eszopiclon e), 3 MG, TABLET, ORAL, [employer], 100 ea. BOTTLE Active [id number] 4 2023 90 Pharmac y Data Transac tion Service Facilit y ESZOPICLONE 3MG TAB TAKE ONE TABLET BY MOUTH AT BEDTIME ORAL ACTIVE RICARDO REYES 2022 [facility] Albert LISINOPRIL 5MG TAB TAKE ONE-HALF TABLET BY MOUTH ONCE A DAY ORAL ACTIVE TK ADAMES 2020 [facility] N LiSINOpril TAB TAKE BY MOUTH ACTIVE ABELARDO INTERIANO 2012 [facility] MELOXICAM 15MG TAB TAKE ONE TABLET BY MOUTH ONCE A DAY ORAL ACTIVE TK ADAMES 2020 [facility] N MELOXICAM 15MG TAB TAKE ONE TABLET BY MOUTH EVERY DAY ORAL ACTIVE VELIA VAUGHAN 2016 [facility] SIMVASTATIN TAB TAKE BY MOUTH AT BEDTIME ACTIVE ABELARDO INTERIANO 2012 [facility] TAMSULOSIN HCL 0.4MG CAP TAKE 1 CAPSULE BY MOUTH EVERY EVENING ORAL ACTIVE TK ADAMES 2020 [facility] N TAMSULOSIN HCL 0.4MG CAP TAKE ONE CAPSULE BY MOUTH EVERY DAY ORAL ACTIVE VELIA VAUGHAN 2016 [facility] MISCELLANE US USE FORTESTA 60MG DIRECTED EVERY DAY DIRECT ED ACTIVE VELIA VAUGHAN 2016 [facility] MISCELLANEO US USE LUNESTA DIRECTED DIRECT ED ACTIVE VELIA VAUGHAN 2016 [facility] Allergies, Adverse Reactions, Alerts Combined list of allergies from Department of Defense and Veterans Affairs facilities. It does not include entries that were removed or entered in error. Substance Category Reaction Severity Reaction type Status Date Reported Comments Source No Known Allergies Drug allergy (disorder) active 9 [facility] Chan [place] ([facility] PERCOCET Propensity to adverse reactions to drug (finding) active 5 [facility] Immunizations Combined list of available immunizations from the Department of Defense and Veterans Affairs facilities. Immunization Series Date Given Administered By Site Reaction Lot Number CVX Code Drug Pillowcase Sewer Status Comments Source PNEUMOCOCCAL CONJUGATE PCV20, POLYSACCHARID E [id number] CONJUGATE, ADJUVANT, PF 2022 VIRGILIO SHIPLEY RIGHT DELTO ID [id number] complet ed [facility] N COVID Vaccine Pfizer 2020 208 PFIZER complet ed COVID Vaccine Pfizer 08/13/21 Given Ambulat ory Pharmac y influenza, high-dose seasonal, quad, pf 2020 197 sanofi pasteur complet ed influenza , high-dose seasonal, quad, pf 08/13/21 Given Ambulat ory Pharmac y influenza, high-dose, quadrivalent 2020 ALUL, () Not Given influenza , high-dose , quadrival ent DoD COVID-19, mRNA, LNP-S, PF, 30 mcg/0.3 mL dose 2020 ALUL, Pfizer [employer] [place] (PFR) Not Given COVID-19, mRNA, LNP-S, PF, 30 mcg/0.3 mL dose DoD zoster vaccine, inactivated 2020 187 GlaxoSmithKli ne complet ed zoster vaccine, inactivat ed 02/03/21 Given Ambulat ory Pharmac y zoster recombinant 2020 ALUL, () Not Given zoster recombina nt DoD COVID Vaccine Pfizer 2020 208 PFIZER complet ed COVID Vaccine Pfizer 12/26/20 Given Ambulat ory Pharmac y COVID-19, mRNA, LNP-S, PF, 30 mcg/0.3 mL dose 2020 PATK[place], [employer] [place] (PFR) Not Given COVID-19, mRNA, LNP-S, PF, 30 mcg/0.3 mL dose DoD zoster vaccine, inactivated 2019 187 GlaxoSmithKli ne complet ed zoster vaccine, inactivat ed 07/24/20 Given Ambulat ory Pharmac y influenza, injectable, quadrivalent- pf 2019 150 sanofi pasteur complet ed influenza , injectabl e, quadrival ent-pf 07/24/20 Given Ambulat ory Pharmac y zoster recombinant 2019 ALUL, () Not Given zoster recombina nt DoD influenza, injectable, quadrivalent, preservative free 2019 ALUL, () Not Given influenza , injectabl e, quadrival ent, preservat heavenly free DoD influenza, injectable, quadrivalent- pf 2019 Chaz miramontes Arm [id number] 150 Se[employer]irus complet ed influenza , injectabl e, quadrival ent-pf 10/25/19 Given Ambulat ory Pharmac y Influenza, injectable, quadrivalent, preservative free 1 2019 Unknown, Provider [id number] 150 [employer] (SEQ) complet ed Influenza , injectabl e, quadrival ent, preservat heavenly free DoD influenza, injectable, [facility]rivalent- [id number] [employer] complet ed influenza , injectabl e, quadrival ent-pf 07/25/18 Given Ambulat ory Pharmac y influenza, injectable, quadrivalent- pf 2017 [id number] complet ed influenza , injectabl e, quadrival ent-pf 07/25/18 Given Ambulat ory Pharmac y Influenza, injectable, quadrivalent, preservative free 1 2017 VIN DUEÑAS [id number] 150 Seqirus (SEQ) complet ed Influenza , injectabl e, quadrival ent, preservat heavenly free DoD influenza, injectable, quadrivalent- pf 2016 zzLef t Arm [id number] 150 GlaxoSmithKli ne complet ed influenza , injectabl e, quadrival ent-pf 07/25/17 Given Ambulat ory Pharmac y influenza, injectable, quadrivalent- pf 2016 [id number] 150 complet ed influenza , injectabl e, quadrival ent-pf 07/25/17 Given Ambulat ory Pharmac y Influenza, injectable, quadrivalent, preservative free 1 2016 VIN DUEÑAS [id number] 150 [employer]Kline (SKB) complet ed Influenza , injectabl e, quadrival ent, preservat heavenly free DoD FLU,3 YRS (HISTORICAL) 2016 88 complet ed [facility] TDAP 2016 115 complet ed [facility] influenza, seasonal, injectable-pf 2015 zzLef t Arm [id number] 140 Seqirus complet ed influenza , seasonal, injectabl e-pf 07/30/16 Given Ambulat ory Pharmac y influenza, seasonal, injectable-pf 2015 [id number] complet ed influenza , seasonal, injectabl e-pf 07/30/16 Given Ambulat ory Pharmac y Influenza, seasonal, injectable, preservative free 1 2015 SID VILLAVICENCIO [id number] 140 Seqirus (SEQ) complet ed Influenza , seasonal, injectabl e, preservat heavenly free DoD tetanus, diphtheria, acellular pertu is 2015 zzLef t Arm [id number] 115 GlaxoSmithKli ne complet ed tetanus, diphtheri a, acellular pertussis 04/20/16 Given Ambulat ory Pharmac y tetanus, diphtheria, acellular pertu is 2015 [id number] complet ed tetanus, diphtheri a, acellular pertussis 04/20/16 Given Ambulat ory Pharmac y tetanus toxoid, reduced diphtheria toxoid, and acellular pertu is vaccine, adsorbed 1 2015 YAZAN HIDALGO [id number] 115 [facility] (SKB) complet ed tetanus toxoid, reduced diphtheri a toxoid, and acellular pertussis vaccine, adsorbed DoD zoster vaccine live 2015 zzLef t Arm [id number] 121 [employer] complet ed zoster vaccine live 01/05/16 Given Ambulat ory Pharmac y zoster vaccine live 2015 [id number] complet ed zoster vaccine live 01/05/16 Given Ambulat ory Pharmac y zoster vaccine, live 1 2015 STEPHANIE FRAUSTO [id number] 121 Merck (MSD) complet ed zoster vaccine, live DoD influenza, seasonal, injectable-pf 2014 zzLef t Arm [id number] 140 C[employer] complet ed influenza , seasonal, injectabl e-pf 07/18/15 Given Ambulat ory Pharmac y influenza, seasonal, injectable-pf 2014 [id number] complet ed influenza , seasonal, injectabl e-pf 07/18/15 Given Ambulat ory Pharmac y Influenza, seasonal, injectable, preservative free 1 2014 YAZAN HIDALGO [id number] 140 [employer] (CSL) complet ed Influenza , seasonal, injectabl e, preservat heavenly free DoD FLU,3 YRS (HISTORICAL) 2011 88 complet ed [facility] influenza, seasonal, injectable-pf 2010 UNK 140 complet ed influenza , seasonal, injectabl e-pf 9/20/11 Given Ambulat ory Pharmac y Influenza, seasonal, injectable, preservative free 0 2010 UNK 140 (TRN) complet ed Influenza , seasonal, injectabl e, preservat heavenly free DoD influenza, seasonal, injectable-pf 2010 140 sanofi pasteur complet ed influenza , seasonal, injectabl e-pf 06/12/11 Given Ambulat ory Pharmac y influenza, seasonal, injectable-pf 2010 140 complet ed influenza , seasonal, injectabl e-pf 06/12/11 Given Ambulat ory Pharmac y Influenza, seasonal, injectable, preservative free 2010 TIFFANIE WHALEN Sanofi Pasteur Inc. (PMC) Not Given Influenza , seasonal, injectabl e, preservat heavenly free DoD anthrax vaccine 2009 [id number] [employer] complet ed anthrax vaccine 12/11/09 Given Ambulat ory Pharmac y anthrax vaccine 2009 [id number] [employer] complet ed anthrax vaccine 12/11/09 Given Ambulat ory Pharmac y anthrax vaccine 3 2009 [id number] [employer] [place] (MIP) complet ed anthrax vaccine DoD Novel influenza-H1N 1-09, injectable 2008 [id number] 1 127 complet ed Novel influenza -B4C3-92, injectabl e 09/04/09 Given Ambulat ory Pharmac y Novel influenza-H1N 1-09, injectable 2008 [id number] 1 127 complet ed Novel influenza -G2J0-69, injectabl e 09/04/09 Given Ambulat ory Pharmac y Novel influenza-H1N 1-09, injectable 0 2008 [id number] 1 127 (AG) complet ed Novel influenza -V3D5-06, injectabl e DoD anthrax vaccine 2008 [id number] [employer] complet ed anthrax vaccine 06/12/09 Given Ambulat ory Pharmac y influenza virus vaccine,split 2008 [id number] 15 [employer] complet ed influenza virus vaccine,s plit 06/12/09 Given Ambulat ory Pharmac y influenza virus vaccine,split 2008 [id number] 15 [employer] complet ed influenza virus vaccine,s plit 06/12/09 Given Ambulat ory Pharmac y influenza virus vaccine, split virus (incl. purified surface antigen)-reti red CODE 0 2008 [id number] 15 [employer] [facility] complet ed influenza virus vaccine, split virus (incl. purified surface antigen)- retired CODE DoD anthrax vaccine 2 2008 [id number] [employer] [place] ([facility]) complet ed anthrax vaccine DoD anthrax vaccine 2008 [id number] [employer] complet ed anthrax vaccine 01/09/09 Given Ambulat ory Pharmac y anthrax vaccine 2008 [id number] [employer] complet ed anthrax vaccine 01/09/09 Given Ambulat ory Pharmac y anthrax vaccine 1 2008 [id number] [facility] [place] ([facility]) complet ed anthrax vaccine DoD typhoid Vi capsular polysaccharid e vac 2008 [id number] 101 [facility] complet ed typhoid Vi capsular polysacch aride vac 10/24/08 Given Ambulat ory Pharmac y yellow fever vaccine 2008 [id number] [employer] complet ed yellow fever vaccine 10/24/08 Given Ambulat ory Pharmac y typhoid Vi capsular polysaccharid e vac 2008 [id number] [employer] complet ed typhoid Vi capsular polysacch aride vac 10/24/08 Given Ambulat ory Pharmac y yellow fever vaccine 2008 [id number] [employer] complet ed yellow fever vaccine 10/24/08 Given Ambulat ory Pharmac y yellow fever vaccine 0 2008 [id number] [employer] [place] ([facility]) complet ed yellow fever vaccine DoD typhoid Vi capsular polysaccharid e vaccine 2 2008 [id number] 101 [facility] ([facility]) complet ed typhoid Vi capsular polysacch aride vaccine DoD influenza virus vaccine,split 2007 [id number] 15 GlaxoSmithKli ne complet ed influenza virus vaccine,s plit 09/12/08 Given Ambulat ory Pharmac y poliovirus vaccine, live, oral 2007 UNK 02 [employer] comple t ed polioviru s vaccine, live, oral 09/12/08 Given Ambulat ory Pharmac y poliovirus vaccine, live, oral 2007 UNK 02 complet ed polioviru s vaccine, live, oral 09/12/08 Given Ambulat ory Pharmac y trivalent poliovirus vaccine, live, oral 0 2007 UNK 02 [employer] (MED) complet ed trivalent polioviru s vaccine, live, oral DoD influenza virus vaccine, split virus (incl. purified surface antigen)-reti red CODE 0 2007 [id number] 15 [facility] (SKB) complet ed influenza virus vaccine, split virus (incl. purified surface antigen)- retired CODE DoD influenza virus vaccine,split 2006 UNK 15 Unknown complet ed influenza virus vaccine,s plit 08/08/07 Given Ambulat ory Pharmac y influenza virus vaccine,split 2006 UNK 15 complet ed influenza virus vaccine,s plit 08/08/07 Given Ambulat ory Pharmac y influenza virus vaccine, split virus (incl. purified surface antigen)-reti red CODE 1 2006 UNK 15 Unknown (UNK) comple t ed influenza virus vaccine, split virus (incl. purified surface antigen)- retired CODE DoD influenza virus vaccine, whole virus 2005 [id number] 16 Unknown complet ed influenza virus vaccine, whole virus 09/13/06 Given Ambulat ory Pharmac y influenza virus vaccine, whole virus 2005 [id number] 16 Unknown complet ed influenza virus vaccine, whole virus 09/13/06 Given Ambulat ory Pharmac y influenza virus vaccine, whole virus 3 2005 [id number] 16 Other (OTH) complet ed influenza virus vaccine, whole virus DoD hepatitis A-hepatitis B vaccine 2005 UNK 104 complet ed hepatitis A-hepatit is B vaccine 02/15/06 Given Ambulat ory Pharmac y hepatitis A-hepatitis B vaccine 2005 UNK 104 complet ed hepatitis A-hepatit is B vaccine 02/15/06 Given Ambulat ory Pharmac y hepatitis A-hepatitis B vaccine 2005 UNK 104 complet ed hepatitis A-hepatit is B vaccine 02/15/06 Given Ambulat ory Pharmac y hepatitis A and hepatitis B vaccine 3 2005 UNK 104 (GSK) complet ed hepatitis A and hepatitis B vaccine DoD influenza virus vaccine, whole virus 2004 UNK 16 complet ed influenza virus vaccine, whole virus 09/09/05 Given Ambulat ory Pharmac y influenza virus vaccine, whole virus 2004 UNK 16 complet ed influenza virus vaccine, whole virus 09/09/05 Given Ambulat ory Pharmac y influenza virus vaccine, whole virus 2 2004 UNK 16 (AV) complet ed influenza virus vaccine, whole virus DoD hepatitis A-hepatitis B vaccine 2004 [id number] 104 complet ed hepatitis A-hepatit is B vaccine 01/06/05 Given Ambulat ory Pharmac y hepatitis A and hepatitis B vaccine 2 2004 [id number] 104 (GSK) complet ed hepatitis A and hepatitis B vaccine DoD hepatitis A-hepatitis B vaccine 2004 [id number] 104 complet ed hepatitis A-hepatit is B vaccine 10/23/04 Given Ambulat ory Pharmac y hepatitis A-hepatitis B vaccine 2004 [id number] 104 complet ed hepatitis A-hepatit is B vaccine 10/23/04 Given Ambulat ory Pharmac y hepatitis A-hepatitis B vaccine 2004 [id number] 104 complet ed hepatitis A-hepatit is B vaccine 10/23/04 Given Ambulat ory Pharmac y hepatitis A and hepatitis B vaccine 1 2004 [id number] 104 (GSK) complet ed hepatitis A and hepatitis B vaccine DoD vaccinia (smallpox) vaccine 2002 [id number] 75 [facility] complet ed vaccinia (smallpox ) vaccine 12/06/02 Given Ambulat ory Pharmac y vaccinia (smallpox) vaccine 2002 [id number] complet ed vaccinia (smallpox ) vaccine 12/06/02 Given Ambulat ory Pharmac y vaccinia (smallpox) vaccine 2 2002 [id number] [facility] complet ed vaccinia (smallpox ) vaccine DoD vaccinia (smallpox) vaccine 2002 [id number] 75 [facility] complet ed vaccinia (smallpox ) vaccine 11/30/02 Given Ambulat ory Pharmac y vaccinia (smallpox) vaccine 2002 [id number] 75 [facility] complet ed vaccinia (smallpox ) vaccine 11/30/02 Given Ambulat ory Pharmac y vaccinia (smallpox) vaccine 1 2002 [id number] [employer] (WAL) complet ed vaccinia (smallpox ) vaccine DoD influenza virus vaccine, whole virus 2001 [id number] 16 Unknown complet ed influenza virus vaccine, whole virus 07/12/02 Given Ambulat ory Pharmac y influenza virus vaccine, whole virus 1 2001 [id number] 16 Other (OTH) complet ed influenza virus vaccine, whole virus DoD tetanus-dipht h toxoids (Td) adult/adol 2001 UNKNWN 09 Unknown complet ed tetanus-d iphth toxoids (Td) adult/ado l 04/20/02 Given Ambulat ory Pharmac y tetanus-dipht h toxoids (Td) adult/adol 2001 UNKNWN 09 complet ed tetanus-d iphth toxoids (Td) adult/ado l 04/20/02 Given Ambulat ory Pharmac y tetanus and diphtheria toxoids, adsorbed, preservative free, for adult use (2 Lf of tetanus toxoid and 2 Lf of diphtheria toxoid) 1 2001 UNKNWN 09 Unknown (UNK) comple t ed tetanus and diphtheri a toxoids, adsorbed, preservat heavenly free, for adult use (2 Lf of tetanus toxoid and 2 Lf of diphtheri a toxoid) DoD influenza virus vaccine, whole virus 2000 UNKNWN 16 Unknown complet ed influenza virus vaccine, whole virus 08/10/01 Given Ambulat ory Pharmac y influenza virus vaccine, whole virus 2000 UNKNWN 16 complet ed influenza virus vaccine, whole virus 08/10/01 Given Ambulat ory Pharmac y influenza virus vaccine, whole virus 1 2000 UNKNWN 16 Unknown (UNK) comple t ed influenza virus vaccine, whole virus DoD hepatitis A adult vaccine 2000 UNKNWN 52 Unknown complet ed hepatitis A adult vaccine 12/20/00 Given Ambulat ory Pharmac y hepatitis A adult vaccine 2000 UNKNWN 52 complet ed hepatitis A adult vaccine 12/20/00 Given Ambulat ory Pharmac y hepatitis A vaccine, adult dosage 1 2000 UNKNWN 52 Unknown (UNK) comple t ed hepatitis A vaccine, adult dosage DoD typhoid vaccine, inactivated 1997 UNK 101 Unknown complet ed typhoid vaccine, inactivat ed 07/10/98 Given Ambulat ory Pharmac y yellow fever vaccine 1997 UNKNWN 37 Unknown complet ed yellow fever vaccine 07/10/98 Given Ambulat ory Pharmac y typhoid vaccine, inactivated 1997 UNK 101 complet ed typhoid vaccine, inactivat ed 07/10/98 Given Ambulat ory Pharmac y yellow fever vaccine 1997 UNKNWN 37 complet ed yellow fever vaccine 07/10/98 Given Ambulat ory Pharmac y yellow fever vaccine 1 1997 UNKNWN 37 Unknown (UNK) comple t ed yellow fever vaccine DoD typhoid vaccine, parenteral, other than acetone-kille d, dried 2 1997 UNK 41 Unknown (UNK) comple t ed typhoid vaccine, parentera l, other than acetone-k illed, dried DoD tetanus toxoid, adsorbed 1989 UNK 35 Unknown complet ed tetanus toxoid, adsorbed 12/21/89 Given Ambulat ory Pharmac y tetanus toxoid, adsorbed 1989 UNK 35 Unknown complet ed tetanus toxoid, adsorbed 12/21/89 Given Ambulat ory Pharmac y tetanus toxoid, adsorbed 0 1989 UNK 35 Unknown (UNK) comple t ed tetanus toxoid, adsorbed DoD Encounters Combined list of: 1) Encounters from [facility] facilities going backup to the last 18 months, not all VA inpatient encounters are included; 2) 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 Location Location Details Encounter Type Encounter Number Reason For Visit Attending Provider ADM Date DC Date Status Disposition Source [facility](Ur ology Cl Be) OUTPATIENT [id number] High PSA CURRY NORTON 10/11 Released w/o Limitations [facility]( Urology Cl Be) [facility] OUTPATIENT [id number] Possibl e Dupuytr en's contrac tion HELENE COYLE 10/20 Released w/o Limitations [facility]( Ortho General Cl FB) [facility](De rmatology [facility] [place]) OUTPATIENT [id number] Skin lesion forearm VICTORIANO DE LA CRUZ 11/09 Released w/o Limitations [facility](Ca [facility] [place]) OUTPATIENT [id number] Susan GARZA BERTIN Bo Mello 11/11 Released w/o Limitations [facility]( [facility] [place]) [facility]) OUTPATIENT [id number] SARAH BOATENG 12/26 Released w/o Limitations [facility]( Orthope [facility]) [facility]) OUTPATIENT [id number] pre-op appt. dos january 09 SARAH BOATENG 02/06 Released w/o Limitations [facility]( [facility]ope [facility] [place]) [facility](Ph ysical Therapy (Techs)) OUTPATIENT [id number] BHARTI Patel 02/06 Released w/o Limitations [facility]( Physica l Therapy (Techs) ) [facility] [place]) OUTPATIENT [id number] POP DOS 9May SARAH BOATENG 02/15 Released w/o Limitations [facility]( [facility]) [facility](Ph ysical Therapy [facility]) OUTPATIENT [id number] ZEINAB OSUNA 02/17 Released w/o Limitations [facility]( Physica l Therapy [facility]) [facility]) OUTPATIENT [id number] F/U scope SARAH BOATENG 04/24 Released w/o Limitations [facility]( [facility]ope [facility]) [facility](Ne urology [facility]) OUTPATIENT [id number] AUGIE TAVAREZ 05/03 Released w/o Limitations [facility]( Neurolo gy Clinic [facility]) [facility]opedic [facility]) OUTPATIENT [id number] SARAH BOATENG 06/13 Released w/o Limitations [facility]( Orthope dic [facility]) [facility](Ca [facility]ology [facility] [place]) OUTPATIENT [id number] Bicuspi d aortic valve and mild aortic regurgi GABRIELA Williamson 11/07 Released w/o Limitations [facility]( [facility] [place]) [facility](Op hthalmolo gy Oculoplas tics [place]) OUTPATIENT [id number] Droppin g eye lid JACOB, FARZANEH R 11/10 Released w/o Limitations [facility]( Ophthal mology [facility] [place]) [facility](De [facility]ology [facility] [place]) OUTPATIENT [id number] Small lesion back area rule out basal versus squamou s cells KONG FITZPATRICK 11/17 Released w/o Limitations [facility]( [facility]y [facility] [place] [facility]) [facility](Or tho Hand Be) OUTPATIENT [id number] Bilater al Dupuytr en's contrac RUSS Kelley 11/30 Released w/o Limitations [facility]( Ortho Hand Be) [facility](Ur ology Cl Be) OUTPATIENT [id number] Persist ent PSA high level CAIN WHALEN W Released w/o Limitations [facility]( Urology Cl Be) [facility](Ur ology Cl Be) TELE CONSULT [id number] lab results CAIN WHALEN W 12/04 [facility]( Urology Cl Be) [facility](Ca [facility]diology [facility] [place]) TELE CONSULT [id number] Lab results GABRIELA PAEZ 12/25 [facility]( [facility] [place]) [facility](Or [facility]opedic [facility] [place] ) OUTPATIENT [id number] Medial and lateral meniscu s tear ROBERT NAVA 12/25 Released w/o Limitations [facility]( Orthope dic Clinic [facility]) [facility](Op hthalmolo gy Oculoplas tics [place]) OUTPATIENT [id number] fu appt FARZANEH JACOB 01/01 Released w/o Limitations [facility]( Ophthal mology [facility]opl [facility]ics [place]) [facility](Or [facility]opedic [facility] [place] ) OUTPATIENT [id number] right knee RORO CARTER 01/14 Released with Work/Duty Limitations [facility]( Orthope dic Clinic [facility]) [facility](Ca [facility]ology [facility] [place]) TELE CONSULT [id number] Pt states he needs annual echo for [employer] GABRIELA PAEZ 03/12 [facility]( [facility] [place](Ur ology Cl Be) TELE CONSULT [id number] CAIN WHALEN Etienne 03/28 [facility]( Urology Cl Be) [facility](Ca [facility]ology [facility] [place]) TELE CONSULT [id number] F/U of lab results GABRIELA PAEZ 04/09 [facility]( [facility] [place]) [facility]ology [facility] [place]) TELE CONSULT [id number] GABRIELA PAEZ 04/18 [facility]( [facility] [place]) [facility] [place]) OUTPATIENT [id number] 52 yo AD [employer] male with a h/o bicuspi d aortic valve TEIXEIRAMORGAN BARRIOS I 05/07 Released w/o Limitations [facility]( [facility] [place]) [facility](Ur ology Cl Be) OUTPATIENT [id number] sat pbx sedatio n CURRY NORTON 05/09 Released w/o Limitations [facility]( Urology Cl Be) [facility](Ur ology Cl Be) OUTPATIENT [id number] CURRY NORTON 05/09 Released w/o Limitations [facility]( Urology Cl Be) [facility]ology [facility] [place]) OUTPATIENT [id number] F/U ON 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 GABRIELA PAEZ 05/21 Released w/o Limitations [facility]( [facility] [place]) [facility]ology [facility] [place]) OUTPATIENT [id number] F/U GABRIELA PAEZ 06/18 Released w/o Limitations [facility]( [facility] [place]) [facility](Ca [facility]ology [facility] [place]) OUTPATIENT [id number] GABRIELA PAEZ 06/18 Released w/o Limitations [facility]( [facility] [place]) [facility](Pa in Mgmt [facility] [place]) OUTPATIENT [id number] cervica l spondyl osis with radicul opathy JOSE RUVALCABA 07/01 Released w/o Limitations [facility]( [facility] [place]) [facility](Pa [facility] [place]) TELE CONSULT [id number] F/U - ALEXX MCKEON 07/02 [facility]( [facility] [place]) [facility](Ne urosurg [facility] [place]) OUTPATIENT [id number] 52y/o 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 Seen b KONG STATON 07/09 Released with Work/Duty Limitations [facility]( [facility]su rg [facility] [place] [facility]) [facility](Pa [facility] [place]) OUTPATIENT [id number] C-[place] JOSE RUVALCABA 07/22 Released w/o Limitations [facility]( [facility] [place]) [facility](Pa in Mgmt [facility] [place]) TELE CONSULT [id number] F/U - C-[place] ALEXX JORDAN 07/23 [facility]( [facility] [place]) [facility](Ur ology Cl Be) OUTPATIENT [id number] fu per DANIEL Fajardo 08/02 Released w/o Limitations [facility]( Urology Cl Be) [facility](ZZ Neurology Cl WR) OUTPATIENT [id number] CERVICA L RADICUL OPATHY RAFAELWENDY Bety 08/12 Released w/o Limitations [facility]( ZZNeuro logy Cl WR) [facility](Ur ology Cl Be) OUTPATIENT [id number] SAT BX w/ SED., need Pre ABX for Valve DANIEL LAM 09/16 Released w/o Limitations [facility]( Urology Cl Be) [facility](Ur ology Cl Be) TELE CONSULT [id number] Prostat e biospy results DANIEL LAM 09/30 [facility]( Urology Cl Be) [facility](Op hthalmolo gy Comprehen sive [place]) OUTPATIENT [id number] JOSE ROBERTS 10/24 Released w/o Limitations [facility]( Ophthal [facility]ology Compreh ensive [place]) [facility](Op tometry [facility] [place]) OUTPATIENT [id number] routine TK WESTON 10/31 Released w/o Limitations [facility]( [facility]omet [facility] [place]) [facility](Ne urosurg [facility] [place]) OUTPATIENT [id number] F/U KONG STATON 11/05 Released w/o Limitations [facility]( [facility]su rg [facility] [place] [facility]) [facility](Ca [facility]diology [facility] [place]) OUTPATIENT [id number] follow- up JOSE CARTER 11/05 Released w/o Limitations [facility]( [facility]iol [facility]gy [facility] [place]) [facility](Ca rdiac Procedure [place]) OUTPATIENT [id number] Cardiac Cath MORGAN TEIXEIRA I 11/13 Released w/o Limitations [facility]( Cardiac Procedu re [place]) [facility](Op tometry [facility] [place]) OUTPATIENT [id number] move fr 1100 to 1415 KYLIE MONROYEsther Plummer 12/23 Released w/o Limitations [facility]( [facility] [place]) [facility](Op hthalmolo gy Ped [facility] [place]) OUTPATIENT [id number] new appt PADMINI KING 02/17 Released w/o Limitations [facility]( [facility]hthal [facility]ology [facility] [place]) [facility](De [facility]matology [facility] [place]) OUTPATIENT [id number] WHO HAS A FAIR SKIN AND HAS SEVERAL GEORGINAON SARAH TESS 07/30 Released w/o Limitations [facility]( [facility]y [facility] [place]) [facility](De [facility]matology [facility] [place]) TELE CONSULT [id number] PATH RESULTS PADMINI NEGRO 08/06 [facility]( [facility]y [facility] [place]) [facility](Au diology Svc BE) OUTPATIENT [id number] 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 per pt SRI CARRASCO 08/12 Released w/o Limitations [facility]( Audiolo gy Svc BE) [facility](Ca [facility]diology [facility] [place]) OUTPATIENT [id number] follow- up KONG GIORDANO 08/12 Released w/o Limitations [facility]( [facility]gy [facility] [place]) [facility](Op hth Neur Cl BE) OUTPATIENT [id number] New appt MACEY POPE 09/19 Released w/o Limitations [facility]( Ophth Neur Cl BE) [facility](Ot olaryngol ogy Clinic [place]) OUTPATIENT [id number] appt in [facility] dropped from DEMETRIO MEDRANO 09/23 Released w/o Limitations [facility]( [facility]ary [facility]ology [facility] [place]) [facility](Op hthalmolo gy Comprehen sive [place]) OUTPATIENT [id number] per BURTON Pelaez 09/30 Released w/o Limitations [facility]( Ophthal mology Compreh ensive [place]) [facility](Ca [facility]diology [facility] [place]) TELE CONSULT [id number] Test Results JOSE CARTER 10/16 [facility]( [facility]iol [facility]gy [facility] [place]) [facility](Ur ology Cl Be) OUTPATIENT [id number] ELEVATE D PSA SCOTT LARIOS GRUM 10/29 Released w/o Limitations [facility]( Urology Cl Be) [facility](Op hthalmolo gy Comprehen sive [place]) OUTPATIENT [id number] 242 sta fast vf and fu BURTON Miller 10/31 Released w/o Limitations [facility]( Ophthal [facility]ology Compreh ensive [place]) [facility](Op hth Neur Cl BE) OUTPATIENT [id number] fu appt- MACEY POPE 10/31 Released w/o Limitations [facility]( Ophth Neur Cl BE) [facility](Ot olaryngol ogy Clinic [place]) OUTPATIENT [id number] preop resid/g rant Nov septo/t DEMETRIO Ramirez 11/06 Released w/o Limitations [facility]( [facility]ary [facility]ology [facility] [place]) [facility](AP U Pre-Scree n Clinic [place]) OUTPATIENT [id number] BBF5 MARQUIS MO 11/06 Released w/o Limitations [facility]( [facility]Scr [facility] [place]) [facility](Ot olaryngol ogy Clinic [place]) OUTPATIENT [id number] pop resid/s orensen Novo/t DEMETRIO Ramirez 11/24 Released w/o Limitations [facility]( [facility]ology [facility] [place]) [facility](Op hthalmolo gy Comprehen sive [place]) OUTPATIENT [id number] fu appt vf JOSE ROBERTS 12/08 Released w/o Limitations [facility]( Ophthal mology Compreh ensive [place]) [facility](Ur ology Cl Be) TELE CONSULT [id number] left one message at work about psa, good level but % free low, recheck 6 months SCOTT LARIOS OMERO 12/16 [facility]( Urology Cl Be) [facility](Ur ology Cl Be) TELE CONSULT [id number] lab results SCOTT LARIOS GABYJESSICA 12/19 [facility]( Urology Cl Be) [facility](Ca [facility]diology [facility] [place]) TELE CONSULT [id number] Rx refill TK MACDONALD 02/09 [facility]( [facility] [place]) [facility](Op hthalmolo gy Comprehen sive [place]) OUTPATIENT [id number] and HELENE ARTEAGA 05/28 Released w/o Limitations [facility]( Ophthal mology Compreh ensive [place]) [facility](Ph ysical Therapy Dheeraj) OUTPATIENT [id number] MENDEZ DAVIS 06/15 Released w/o Limitations [facility]( Physica l Therapy [facility]aj) [facility](Ph ysical Therapy [facility]) OUTPATIENT [id number] TONI JORDAN 06/18 Released with Work/Duty Limitations [facility]( Physica l Therapy Dheeraj) [facility](Ph ysical Therapy Dheeraj) OUTPATIENT [id number] CHASIDY CESPEDES 06/22 Released w/o Limitations [facility]( Physica l Therapy Dheeraj) [facility](Ph ysical Therapy [facility]heeraj) OUTPATIENT [id number] CHASIDY CESPEDES 06/25 Released w/o Limitations [facility]( Physica l Therapy Dheeraj) [facility](Ph ysical Therapy [facility]) OUTPATIENT [id number] TONI JORDAN 06/29 Released with Work/Duty Limitations [facility]( Physica l Therapy Dheeraj) [facility](Ph ysical Therapy [facility]) OUTPATIENT [id number] CHASIDY CESPEDES 07/02 Released w/o Limitations [facility]( Physica l Therapy Dheeraj) [facility](Ph ysical Therapy [facility]heeraj) OUTPATIENT [id number] MENDEZ DAVIS 07/16 Released w/o Limitations [facility]( Physica l Therapy Dheeraj) [facility](Ph ysical Therapy Dheeraj) OUTPATIENT [id number] CHASIDY CESPEDES 07/20 Released w/o Limitations [facility]( Physica l Therapy Dheeraj) [facility](Ph ysical Therapy Dheeraj) OUTPATIENT [id number] TK ALAMO Cedric 07/27 Released w/o Limitations [facility]( Physica l Therapy Dheeraj) [facility](Ur ology Cl Be) OUTPATIENT [id number] follow up BANDAR LARIOSY GR 08/03 Released w/o Limitations [facility]( Urology Cl Be) [facility](Nh [facility]diology Clinic [place]) TELE CONSULT [id number] Rx refill MAEGAN SÁNCHEZ 09/08 [facility]( [facility] [place]) [facility](Ur ology Cl Be) TELE CONSULT [id number] Request call back regardi ng elevate d psa and enlarge d prostat e. SCOTT LARIOS GR 09/16 [facility]( Urology Cl Be) [facility](Ur ology Cl Be) OUTPATIENT [id number] elevate d psa/enl arged prostat e LANG DELAROSA 09/17 Released w/o Limitations [facility]( Urology Cl Be) [facility](Ur ology Cl Be) TELE CONSULT [id number] Needs informa tion over prostat e NERI NAIK V 09/17 Referred for Appointment [facility]( Urology Cl Be) [facility](Ph ysical Therapy Dheeraj) OUTPATIENT [id number] MENDEZ Thompson 09/23 Released w/o Limitations [facility]( Physica l Therapy Dheeraj) [facility]ology [facility] [place]) OUTPATIENT [id number] F/U APPT MAEGAN SÁNCHEZ 09/30 Released w/o Limitations [facility]( [facility] [place]) [facility]ology [facility] [place]) OUTPATIENT [id number] FAUSTINO BENOIT 10/12 Released w/o Limitations [facility]( [facility]gy [facility] [place]) [facility](FY 12Sports Med Prim Care Cl FB) OUTPATIENT [id number] SPORTS MEDICIN E - RIGHT SHOULDE R IMPINGE MENT ARON RAMON 10/23 Released w/o Limitations [facility] [id number] rts Med Prim Care Cl FB) [facility] Practice Blue FB) TELE CONSULT [id number] triage MARY STEIN 01/25 [facility]( Family Practic e Blue FB) [facility] Silver Cl FB) OUTPATIENT [id number] sinus issue/h eadaHELENE Neville 01/25 Released w/o Limitations [facility]( Family Practic e Silver Cl FB) [facility](Ur ology Cl FB) TELE CONSULT [id number] Pt request ing PSA labs to be entered at [facility]. Pt has follow appt 05 mar 2011 SCOTT LARIOS 02/10 [facility]( Urology Cl FB) [facility](Ur ology Cl FB) OUTPATIENT [id number] follow up SCOTT LARIOS 03/05 Released w/o Limitations [facility]( Urology Cl FB) [facility](Ca rdiology [facility] [place]) TELE CONSULT [id number] Rx refill MAEGAN SÁNCHEZ 04/30 [facility] [place](FY 12Sports Med Prim Care Cl FB) OUTPATIENT [id number] right shoulde r impinge ment RICARDO SANTILLAN 07/05 Released w/o Limitations [facility]( [id number] rts Med Prim Care Cl FB) [facility](Op tometry Cl FB) OUTPATIENT [id number] eye exam BERTHA PERALTA 07/28 Released w/o Limitations [facility]( Optomet ry Cl FB) [facility](Ks rmatology [facility]) OUTPATIENT [id number] VICTORIANO DESHPANDE 08/03 Released w/o Limitations [facility]( [facility]y [facility] [place]) [facility](Ks rmatology [facility]) TELE CONSULT [id number] VICTORIANO DESHPANDE 08/12 [facility]( [facility]y [facility] [place]) [facility](Op tometry Cl FB) OUTPATIENT [id number] BERTHA PERALTA 08/23 Released w/o Limitations [facility]( Optomet ry Cl FB) [facility](Or thopedics Hand Cl FB) OUTPATIENT [id number] MICHAEL MCHUGH CONTRAC JEROMY L HAND TARIK LT, KONG A 09/01 Released w/o Limitations [facility]( Orthope dics Hand Cl FB) [facility](Ca rdiolog Cl FB) OUTPATIENT [id number] FARZANHE CASTRO 09/06 Released w/o Limitations [facility]( Cardiol og Cl FB) [facility](Ca rdiolog Cl FB) OUTPATIENT [id number] FRANCES PALMER 09/06 Released w/o Limitations [facility]( Cardiol og Cl FB) [facility](Ca rdiolog Cl FB) OUTPATIENT [id number] GXT KIAH CURTIS Christiane 09/22 Released w/o Limitations [facility]( Cardiol og Cl FB) [facility](Op hth Compre FB) OUTPATIENT [id number] EYELIDS ; LACRIMA L SAC, DUCT, GLAND WENDY RAMIREZ 09/23 Released w/o Limitations [facility]( Ophth Compre FB) [facility](Op hthalmolo gy Oculoplas tics [place]) OUTPATIENT [id number] Per JESSENIA Morrissey 10/26 Released w/o Limitations [facility]( Ophthal mology Oculopl [facility]ics [place]) [facility](Or thopedics Hand Cl FB) OUTPATIENT [id number] LT HAND INJURY, REF BY AGNES JEFFRIES GAUTAM 11/01 Released w/o Limitations [facility]( Orthope dics Hand Cl FB) [facility](Ca rdiolog Cl FB) OUTPATIENT [id number] f/u FARZANEH CASTRO 11/02 Released w/o Limitations [facility]( Cardiol og Cl FB) [facility](Ur ology Cl FB) TELE CONSULT [id number] Pt req refill for Alfuzos in 10mg will picker and sorter load and unload@ [place] ..pt #[phone] SCOTT LARIOS 11/12 [facility]( Urology Cl FB) [facility](Fa jeanette Practice Gold Cl FB) OUTPATIENT [id number] lower pain LEON CISSE 11/18 Released w/o Limitations [facility]( Family Practic e Gold Cl FB) [facility](Fa jeanette Practice Gold Cl FB) TELE CONSULT [id number] results LEON CISSE 11/18 [facility]( Family Practic e Gold Cl FB) [facility](Fa jeanette Practice Blue FB) OUTPATIENT [id number] TORIE Villegas 11/18 Released w/o Limitations [facility]( Family Practic e Blue FB) [facility](Fa jeanette Practice Red FB) OUTPATIENT [id number] f/u epididy bola ESPINOSA-P DANDRE CHAPA 11/20 Released w/o Limitations [facility]( Family Practic e Red FB) [facility] [place] TELE CONSULT [id number] TK MANDUJANO 11/25 [facility]( Ophthal mology Compreh ensive [place]) [facility](Ca rdiolog Cl FB) OUTPATIENT [id number] Holter Monitor PIOTR MENDEZ 12/14 Released w/o Limitations [facility]( Cardiol og Cl FB) [facility](Or thopedics Hand Cl FB) OUTPATIENT [id number] Xiaflex injecti on/dariu AGNES Herrera 01/18 Released w/o Limitations [facility]( Orthope dics Hand Cl FB) [facility](Or thopedics Hand Cl FB) OUTPATIENT [id number] f/u xiaflex injecti on/depu AGNES Herrera 01/19 Released w/o Limitations [facility]( Orthope dics Hand Cl FB) [facility](Oc cup Therap FB) OUTPATIENT [id number] dariuyTK Skaggs 01/19 Released w/o Limitations [facility]( Occup Therap FB) [facility](Op tometry Cl FB) OUTPATIENT [id number] vf/phot os BERTHA PERALTA L 03/02 Released w/o Limitations [facility]( Optomet ry Cl FB) [facility](Or thopedics Hand Cl FB) OUTPATIENT [id number] F/U LT HAND AGNES BYRD 04/06 Released w/o Limitations [facility]( Orthope dics Hand Cl FB) [facility](Ca rdiolog Cl FB) TELE CONSULT [id number] julieth greggneo FARZANEH CASTRO 04/27 [facility]( Cardiol og Cl FB) [facility](AM H M04B [place]) OUTPATIENT [id number] persist ent cough ADIEL JACKSON 05/20 Immediate Referral [facility]( AMH [facility] [place]) [facility](AM H [facility] [place]) OUTPATIENT [id number] perscri ptionsroberta for special ty ОЛЬГА HUMPHRIES 06/03 Released w/o Limitations [facility]( AMH [facility] [place]) [facility](AM H M[facility] [place]) TELE CONSULT [id number] Notes Entered by: RUSS MARS 16 Jun 2015 1438 ------- ------- ------- ------- -- Referra l ОЛЬГА Mistry 06/16 [facility]( AMH M[facility] [place]) [facility](AM H [facility] [place]) OUTPATIENT [id number] f/u appt from all entered referra ceci and to hair current medicat ions ОЛЬГА HUMPHRIES 06/20 Released w/o Limitations [facility]( AMH M04B [place]) [facility](IB BH CL Ra) OUTPATIENT [id number] Initial RAVEN GRUBER 06/24 Released w/o Limitations [facility]( IB BH CL Ra) [facility](Ur ol Prostate Center Be) OUTPATIENT [id number] BPH GOPAL PUCKETT 07/08 Released w/o Limitations [facility]( Urol Prostat e Center Be) [facility](Ca [facility]diology [facility] [place]) OUTPATIENT [id number] BICUSPI D AORTIC VALVE MAEGAN SÁNCHEZ 07/10 Released w/o Limitations [facility]( [facility]gy [facility] [place]) [facility](De rmatology [facility] [place]) OUTPATIENT [id number] skin evaluat ion SHEEBA TRAN 07/22 Released w/o Limitations [facility]( [facility]y [facility] [place]) [facility](Ur Prostate Center Be) TELE CONSULT [id number] Notes Entered by: Law KAM 22 Jul 2015 0956 ------- ------- ------- ------- -- Pls call about PSA results GOPAL PUCKETT 07/22 [facility]( Urol Prostat e Center Be) [facility](Ne urosurg [facility]) OUTPATIENT [id number] CERVICA L RADICUL OPATHY C8 (C7-T1) TK LEO 07/30 [facility] w/o Limitations [facility] Be) TELE CONSULT [id number] Notes Entered by: Law KAM 04 Aug 2015 1505 ------- ------- ------- ------- -- Pls call about labs GOPAL PUCKETT 08/04 [facility]( Urol Prostat e Center Be) [facility](Fa jeanette [place] Gold FX) OUTPATIENT [id number] f/u r knee pain MIN WILKS 08/07 Released w/o Limitations [facility]( Family Practic e Gold FX) [facility](Op tometry [facility] [place]) OUTPATIENT [id number] eye exam DICK LAZCANO 08/19 Released w/o Limitations [facility]( [facility] [place] [facility]) [facility](Ne [facility]) OUTPATIENT [id number] Per TK Lua 08/20 Released w/o Limitations [facility]( [facility] [place] [facility]) [facility](Te le-Neuros ur[facility]) OUTPATIENT [id number] PT VISHAL Cohen 08/20 Released w/o Limitations [facility]( Tele-Ne urosurg [facility]) [facility](Pa [facility] [place]) OUTPATIENT [id number] Cervica l [place] per HELENE Ann 08/21 Released w/o Limitations [facility]( [facility] [place] [facility]) [facility](Fa [facility]) OUTPATIENT [id number] rx renewal (per pt req) EUGENIOSHAYNA MIN H 09/23 Released w/o Limitations [facility] OUTPATIENT [id number] f/u LILLIAN OLIVIA V 10/02 Released w/o Limitations [facility] [place] OUTPATIENT [id number] F/up TK LEO Tony 10/08 Released w/o Limitations [facility] [place] [facility]Po [facility]ry [facility] [place]) OUTPATIENT [id number] Pain in right ankle and joints of right foot GISELLA LU 10/09 Released w/o Limitations [facility] [place] [facility](Or thotics [facility]) OUTPATIENT [id number] Notes Entered by: QUINTON ALARCON 09 Oct 2015 1029 ------- ------- ------- ------- -- custom orthoti cs GISELLA SANTILLAN 10/09 Released w/o Limitations [facility]( Orthoti cs [facility]) [facility](So cial Work [facility] [place]) OUTPATIENT [id number] initial LANCE YAP 10/10 Released w/o Limitations [facility]( [facility] [place] ) [facility]) TELE CONSULT [id number] Notes Entered by: Christiane QUESADA 17 Oct 2015 0948 ------- ------- ------- ------- -- Relay Health Message LILLIAN OLIVIA V 10/17 [facility] [place]) OUTPATIENT [id number] HVF and IOP Check per LCDR DICK Mcgee 11/06 Released w/o Limitations [facility] [place] [facility]) [facility]Sp ts Med Prim Care [facility]) OUTPATIENT [id number] Pain in right knee ASHLYN RODRÍGUEZ P 11/11 Released w/o Limitations [facility]( Spts Med Prim [facility]) [facility] [place] [facility]) OUTPATIENT [id number] CLINT Reilly 11/28 Released w/o Limitations [facility]) [facility]) TELE CONSULT [id number] Notes Entered by: YORDAN PUCKETT 02 Dec 2015 1709 ------- ------- ------- ------- -- Testost ershay replace ment GOPAL PUCKETT 12/01 [facility]( [facility]) [facility] [place]) OUTPATIENT [id number] f/u LANCE YAP 12/08 Released w/o Limitations [facility]( Social [facility] [place] ) [facility] [place]) OUTPATIENT [id number] HVF 24-2 OU W/ EYELID TAPING PER DICK WILDER 12/16 Released w/o Limitations [facility] [place] [facility]) [facility](Ph ysical Therapy Cl [facility]) OUTPATIENT [id number] Pain in right knee LIZZETTE BAIN E 12/21 Released w/o Limitations [facility]( Physica l Therapy [facility]) [facility]Ca [facility]ology [facility] [place]) OUTPATIENT [id number] follow- up TK RIVERA 12/24 Released w/o Limitations [facility]( [facility] [place] [facility]) [facility](Im munizatio n [place]) OUTPATIENT [id number] Notes Entered by: VINEET MILAN 05 Jan 2016 1024 ------- ------- ------- ------- -- yanick FRAUSTO SI 01/04 Released w/o Limitations [facility]( Immuniz ation [place] ) [facility]) OUTPATIENT [id number] cyst AUGUSTA HENDERSON F 01/07 Released w/o Limitations [facility]( [facility]) [facility]) OUTPATIENT [id number] flu symptom s OLIVIA, LILLIAN V 01/13 Released w/o Limitations [facility]) [facility]) OUTPATIENT [id number] cough OLIVIA, LILLIAN V 01/15 Released w/o Limitations [facility]) [facility]) OUTPATIENT [id number] Chest congest ion MIN WILKS H 01/16 Released w/o Limitations [facility]) [facility] [place] [facility]) OUTPATIENT [id number] flu/ loss sense of taste and smell MARIVEL FUNG S 01/21 Released w/o Limitations [facility]) [facility]) OUTPATIENT [id number] poss flu OLIVIA, LILLIAN V 01/29 Released w/o Limitations [facility]) [facility](Op hthalmolo gy Comprehen [facility]) OUTPATIENT [id number] Dermato chalasi s of right upper eyelid BENJI AGUIRRE 01/29 Released w/o Limitations [facility]( Ophthal mology Compreh ensive [place] [facility]) [facility]( ol [facility]) OUTPATIENT [id number] 1 month f/u AUGUSTA HENDERSON F 02/02 Released w/o Limitations [facility]( [facility]rol [facility]stat [facility]) [facility]Op hthalmolo gy Oculoplas tics [place]) OUTPATIENT [id number] DERMATO CHALASI S KOLBY LOZADA 02/11 Released w/o Limitations [facility]( Ophthal mology Oculopl astics [place]) [facility]ology [facility] [place]) TELE CONSULT [id number] TK HAMLIN 03/08 [facility]( [facility]iol [facility] [place] [facility]) [facility]) OUTPATIENT [id number] anxiety OLIVIA, LILLIAN V 03/10 [facility]ased w/o Limitations [facility]) [facility]Ot [facility]ol ogy [facility] [place]) OUTPATIENT [id number] Anosmia TK QUINONES Tony 03/23 Released w/o Limitations [facility] [place]) [facility]) TELE CONSULT [id number] Notes Entered by: KERON BLOCK 23 Mar 2016 1335 ------- ------- ------- ------- -- Plz call re: testost ershay ck-or another order to ck. GOPAL PUCKETT 03/23 [facility]( Urol Prostat e Center ) [facility](So cial Work [facility] [place]) OUTPATIENT [id number] f/u certified travel counselor LANCE Davis 04/01 Released w/o Limitations [facility]( Social Work Adult [place] ) [facility]) TELE CONSULT [id number] Notes Entered by: YORDAN PUCKETT 19 Apr 2016 1559 ------- ------- ------- ------- -- Rx request for testost ershay GOPAL PUCKETT 04/19 [facility]( Urol Prostat e Center ) [facility](Fa [facility]ette Practice [facility] OUTPATIENT [id number] heart burn/f/ u per pt req LILLIAN OLIVIA V 04/20 Released w/o Limitations [facility]( Family [facility]) [facility]) TELE CONSULT [id number] LILLIAN OLIVIA V 04/23 [facility]( [facility]) [facility](Op hthalmolo gy Oculoplas tics [place]) OUTPATIENT [id number] pre surgica l visit, KOLBY LOZADA 05/25 [facility]ased w/o Limitations [facility]) TELE CONSULT [id number] Notes Entered by: YORDAN PUCKETT A 15 Jun 2016 0937 ------- ------- ------- ------- -- PSA elevati on GOPAL PUCKETT Jennifer 06/15 [facility]( [facility]) [facility]) OUTPATIENT [id number] f/u LILLIAN OLIVIA V 07/07 Released w/o Limitations [facility]) [facility]) OUTPATIENT [id number] f/u GOPAL PUCKETT Jennifer 07/16 Released w/o Limitations [facility]( [facility]) [facility](Op hthalmolo gy Oculoplas tics [place]) TELE CONSULT [id number] Notes Entered by: MARCIAL LOZADA 20 Jul 2016 1855 ------- ------- ------- ------- -- Pre-op questio ns KOLBY LOZADA 07/20 [facility]( Ophthal mology [facility]opl [facility]ics [place]) [facility](Fa [employer] [facility]) OUTPATIENT [id number] insLILLIAN Carlson V 07/23 Released w/o Limitations [facility]) [facility](Op hthalmolo gy Oculoplas tics [place]) OUTPATIENT [id number] Notes Entered by: JESSENIA CHRISTIANSON 26 Jul 20162025 ------- ------- ------- ------- -- Op Report KOLBY LOZADA 07/27 Released w/o Limitations [facility]( Op[facility]ology [facility] [place]) [facility] [employer] [facility]) TELE CONSULT [id number] Notes Entered by: Christiane QUESADA 29 Jul 2016 1256 ------- ------- ------- ------- -- LILLIAN SOUSA V 07/29 [facility]) [facility](Op hthalmolo gy Oculoplas tics [place]) OUTPATIENT [id number] 1 wk SEE KOLBY LOZADA 08/03 Released w/o Limitations [facility]( Ophthal [facility]ology [facility]opl [facility]ics [place]) [facility](Fa [facility]) TELE CONSULT [id number] Notes Entered by: BROOKE HUNT 18 Aug 2016 1027 ------- ------- ------- ------- -- Rx refill LILLIAN OLIVIA V 08/18 [facility]) [facility](Op hthalmolo gy Oculoplas tics [place]) OUTPATIENT [id number] SEE RANKIN/SEBAS Miramontes KIERRAKOLBY 09/06 Released w/o Limitations [facility]( Ophthal mology O[facility]opl [facility]ics [place]) [facility]Nh [facility]diology [facility] [place]) OUTPATIENT [id number] Notes Entered by: SOHAIL CARDENAS 30 Sep 2016 0938 ------- ------- ------- ------- -- DECADE STUDY ENROLLM VITOR ALVARES 09/30 Released w/o Limitations [facility] [place] [facility] [place]) OUTPATIENT [id number] Notes Entered by: SOHAIL CARDENAS 30 Sep 2016 0939 ------- ------- ------- ------- -- ENDOTHE LIX ASSESSM VITOR ALVARES 09/30 Released w/o Limitations [facility] [place]) [facility]) OUTPATIENT [id number] Notes Entered by: ANITA WANG 02 Oct 2016 1315 ------- ------- ------- ------- -- walk-in -possib le strep?? NAKUL LAZCANO 10/02 Released w/o Limitations [facility]) [facility]) TELE CONSULT [id number] GOPAL PUCKETT 10/15 [facility]( [facility]) [facility]) TELE CONSULT [id number] Notes Entered by: HAY MORALES 20 Oct 2016 0956 ------- ------- ------- ------- -- med.ref ill LILLIAN OLIVIA V 10/20 [facility]) [facility]) OUTPATIENT [id number] insomni a fu (resche dule) LILLIAN OLIVIA V 11/02 Released w/o Limitations [facility]( [facility]) [facility]) OUTPATIENT [id number] anxiety , depress ion LANCE YAP 11/08 Released w/o Limitations [facility]( [facility] ) [facility]) TELE CONSULT [id number] Notes Entered by: CARY HERNANDEZ 09 Nov 2016 1747 ------- ------- ------- ------- -- [facility] [place] LILLIAN Torres V 11/09 [facility]) [facility]) TELE CONSULT [id number] Notes Entered by: Christiane QUESADA 19 Nov 2016 0821 ------- ------- ------- ------- -- med LILLIAN Wooten V 11/19 [facility]( [facility]) [facility]) OUTPATIENT [id number] f/u on insomni a and anxiety LILLIAN OLIVIA V 12/06 Released w/o Limitations [facility]( [facility]) [facility]) OUTPATIENT [id number] certified travel 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 LANCE Davis 12/10 Released w/o Limitations [facility] ) [facility]) TELE CONSULT [id number] Notes Entered by: CARY HERNANDEZ 10 Dec 2016 1748 ------- ------- ------- ------- -- [facility] [place] follow- up LILLIAN OLIVIA V 12/10 [facility]( [facility]) [facility] [place]) TELE CONSULT [id number] LILLIAN OLIVIA V 12/17 [facility]( [facility] [place] ) [facility]) TELE CONSULT [id number] Notes Entered by: BROOKE HUNT 27 Dec 2016 1739 ------- ------- ------- ------- -- Derm LILLIAN Torres V 12/27 [facility]) [facility]) TELE CONSULT [id number] Notes Entered by: HUNTER PABON 07 Jan 2017 0851 ------- ------- ------- ------- -- cough/b mary is vs HAY MORALES 01/07 Referred for Appointment [facility]( [facility] ) [facility](Fa [facility]) OUTPATIENT [id number] cough LILLIAN OLIVIA V 01/08 Released w/o Limitations [facility]( [facility]) [facility]) OUTPATIENT [id number] f/u GOPAL PUCKETT 01/10 Released w/o Limitations [facility]( [facility]) [facility]) OUTPATIENT [id number] LILLIAN OLIVIA V 01/21 Released w/o Limitations [facility]( [facility]) [facility]) OUTPATIENT [id number] Actinic keratos is KVNG WOOD Elian 01/25 Released w/o Limitations [facility]( [facility] [place]) [facility]) OUTPATIENT [id number] EVA OLIVIAKATHY Gtz 03/15 Released w/o Limitations [facility]) [facility]) OUTPATIENT [id number] f/u LANCE YAP 03/29 Released w/o Limitations [facility]( [facility] ) [facility]) TELE CONSULT [id number] Notes Entered by: CARY HERNANDEZ 01 Apr 20172053 ------- ------- ------- ------- -- [facility] [place] follow- up CARY MIJARES 04/02 [facility]( [facility]) [facility]) TELE CONSULT [id number] Notes Entered by: VALERIO THOMAS 02 May 2017 0933 ------- ------- ------- ------- -- Request ing medicat ion Fortest a-10mg. [facility]. GOPAL PUCKETT 05/02 [facility]( [facility]) [facility]) TELE CONSULT [id number] Notes Entered by: VALERIO THOMAS 09 May 2017 1242 ------- ------- ------- ------- -- Request ing medicat ion Forgest a. [facility]. GOPAL PUCKETT 05/09 [facility]( [facility]stat [facility]) [facility](Ca rdiology [facility]) OUTPATIENT [id number] Thoraci c aortic aneurys m, without rupture TK RIVERA 05/13 Released w/o Limitations [facility]( [facility] [place]) [facility]) TELE CONSULT [id number] Notes Entered by: EDDA WONG 17 May 2017 1154 ------- ------- ------- ------- -- RX LILLIAN OLIVIA V 05/17 [facility]( [facility]) [facility]) TELE CONSULT [id number] Notes Entered by: Esther WAGNER 18 May 2017 1341 ------- ------- ------- ------- -- Patient Contact ed VIRI WAGNER 05/18 [facility]) OUTPATIENT [id number] follow up LILLIAN OLIVIA V 05/26 Released w/o Limitations [facility]( [facility]) [facility]) TELE CONSULT [id number] Notes Entered by: Esther WAGNER 27 May 2017 0954 ------- ------- ------- ------- -- Schedul ed For A OC VIRI WAGNER 05/27 [facility]) TELE CONSULT [id number] Notes Entered by: Esther WAGNER 28 Jun 2017 0953 ------- ------- ------- ------- -- Reminde r Call For A Procedu re Appoint ment VIRI WAGNER 06/28 [facility]( [facility]) OUTPATIENT [id number] agustín miramontes in left hand at [facility] LILLIAN OLIVIA V 06/28 Released w/o Limitations [facility]( [facility]) [facility]) TELE CONSULT [id number] Notes Entered by: SILVIA TRAN 04 Jul 2017 1247 ------- ------- ------- ------- -- Med Refll LILLIAN OLIVIA V 07/04 [facility]( [facility]) [facility](Or thopedics Hand Cl [facility]) OUTPATIENT [id number] Contrac ture, left hand DEMETRIO TERRY Esther 07/14 Released w/o Limitations [facility]( Orthope dics Hand Cl [facility]) [facility]) OUTPATIENT [id number] throat pain LILLIAN OLIVIA V 08/05 Released w/o Limitations [facility]( [facility]) [facility]) TELE CONSULT [id number] Notes Entered by: YORDAN PUCKETT 05 Aug 2017 1349 ------- ------- ------- ------- -- MRI results GOPAL PUCKETT 08/05 [facility]( [facility]) [facility]) OUTPATIENT [id number] mri guided bxp [address] 08/09 Released w/o Limitations [facility]( [facility]) [facility](Fa [facility]ette [facility]) TELE CONSULT [id number] Notes Entered by: CHAYO WIGGINS 27 Aug 2017 1222 ------- ------- ------- ------- -- medicat ion LILLIAN OLIVIA V 08/27 [facility]( [facility]) [facility]) TELE CONSULT [id number] Notes Entered by: SILVIA TRAN 29 Aug 2017 0939 ------- ------- ------- ------- -- Med Refill LILLIAN OLIVIA V 08/29 [facility]( [facility]) [facility]) OUTPATIENT [id number] hearing issues and audiolo gy referra l LILLIAN OLIVIA V 09/08 Released w/o Limitations [facility]( [facility]) [facility]) OUTPATIENT [id number] MRI Guided Biopsy [address] 09/15 Released w/o Limitations [facility]( [facility]) [facility](Ur ology Cl Be) TELE CONSULT [id number] [address] 09/22 [facility]( Urology Cl [facility]) [facility]Ot [facility]gy [facility] [place]) OUTPATIENT [id number] [place] single thyroid nodule JAI WALKER Jennifer 09/22 Released w/o Limitations [facility]( Otolary ngology Clinic [facility] a) [facility] [place]) TELE CONSULT [id number] LILLIAN OLIVIA V 09/27 [facility]( [facility] [place] ) [facility]) OUTPATIENT [id number] Multi-d [address] 10/31 Released w/o Limitations [facility]( [facility]) [facility](Ma le Inf/Sexua l Health [facility]) OUTPATIENT [id number] multi d NACHO OCASIO 10/31 Released w/o Limitations [facility]( Male Inf/Sex ual Health [facility]) [facility]) OUTPATIENT [id number] Notes Entered by: Esther LOPEZ 31 Oct 2017 1102 ------- ------- ------- ------- -- Multi-D iscipli georgettey Prostat e Cancer Clinic SOFIYA LOPEZ 10/31 Released w/o Limitations [facility]) [facility](Ra d Oncology [facility]IOR [facility]ARE BE) OUTPATIENT [id number] PROSTAT E CLINIC NERI AQUINO 10/31 Released w/o Limitations [facility]( Rad Oncolog y [facility]IOR [facility]) [facility] [place]) TELE CONSULT [id number] Notes Entered by: Tony VELASQUEZ 31 Oct 2017 1432 ------- ------- ------- ------- -- PATIENT REQ ECHO - NO CONSULT IN SYSTEM ZOHREH GABRIEL 10/31 [facility]( Cardiol ogy Clinic [facility] a) [facility](Ur [facility]state [facility] ) TELE CONSULT [id number] Notes Entered by: YORDAN PUCKETT 07 Nov 2017 0754 ------- ------- ------- ------- -- Prostat e cancer GOPAL PUCKETT 11/07 [facility]( [facility]) [facility](Or thopedics Hand Cl [facility]) OUTPATIENT [id number] f/u dupuytr en's contrac ture on L hand ZIYAD MEIER 11/10 Released w/o Limitations [facility]( Orthope dics Hand Cl [facility]) [facility]([employer] [facility]) TELE CONSULT [id number] Notes Entered by: Christiane QUESADA 11 Nov 2017 0944 ------- ------- ------- ------- -- med renewal LILLIAN OLIVIA V 11/11 [facility]( [facility]) [facility](Or thopedics Hand Cl [facility]) OUTPATIENT [id number] injecti ons for Dupuytr ens contrac nitae ZIYAD MEIER 11/22 Released w/o Limitations [facility]( Orthope dics Hand Cl [facility]) [facility](Or thopedics Hand Cl [facility]) OUTPATIENT [id number] injecti on for Dupuytr ens ZIYAD MEIER 11/23 Released w/o Limitations [facility]( Orthope dics Hand Cl [facility]) [facility](Ot olaryngol ogy [facility]) TELE CONSULT [id number] Notes Entered by: Bo AQUINO 30 Nov 2017 1823 ------- ------- ------- ------- -- Barium swallow results NACHO AQUINO 11/30 Medication Refill Forwarded [facility]( Otolary ngology [facility] a) [facility]([employer] [facility]) TELE CONSULT [id number] Notes Entered by: Christiane QUESADA 23 Dec 2017 1740 ------- ------- ------- ------- -- med renewal NIK EVANS Bety 12/23 [facility]( [facility]) [facility](Ur [facility]) TELE CONSULT [id number] Notes Entered by: YORDAN PUCKETT 27 Dec 2017 1229 ------- ------- ------- ------- -- lab results GOPAL PUCKETT 12/27 [facility]( [facility]) [facility](Or thopedics Hand Cl [facility]) OUTPATIENT [id number] f/u left hand IZYAD MEIER 01/27 Released w/o Limitations [facility]( Orthope dics Hand Cl [facility]) [facility] [place]) OUTPATIENT [id number] NACHO GILLIS 01/31 Released w/o Limitations [facility]( [facility] [place] [facility]) [facility](Or thopedics Hand Cl [facility]) OUTPATIENT [id number] f/u injecti on ZIYAD MEIER 02/15 Released w/o Limitations [facility]( Orthope dics Hand Cl [facility]) [facility](Or thopedics Hand Cl [facility]) OUTPATIENT [id number] F/U ZIYAD MEIER 02/21 Released w/o Limitations [facility]( Orthope dics Hand Cl [facility]) [facility](Fa [facility]ette Practice [facility]) OUTPATIENT [id number] feeling dizzy, high blood pressur e CORWIN LILLIAN V 02/23 Released w/o Limitations [facility]( [facility]) [facility](Ur [facility]) OUTPATIENT [id number] f/u [address] 03/06 Released w/o Limitations [facility]( [facility]) [facility](Fa [facility]ette Practice [facility]) OUTPATIENT [id number] sinus infecti on, sore throat, lung congest ion, cough MIN WILKS 03/10 Released w/o Limitations [facility]( [facility]) [facility]) TELE CONSULT [id number] Notes Entered by: YORDAN PUCKETT 03 Apr 2018 1440 ------- ------- ------- ------- -- prostat e cancer GOPAL PUCKETT 04/03 [facility]( [facility]) [facility](Or thopedics Hand Cl [facility]) OUTPATIENT [id number] F/U Dupatri ashley normara JAMES CejaRICK Esther 04/04 Released w/o Limitations [facility]( Orthope dics Hand Cl [facility]) [facility](Fa [facility]ette Practice [facility]) TELE CONSULT [id number] Notes Entered by: EDDA WONG 18 May 2018 1715 ------- ------- ------- ------- -- RX LILLIAN OLIVIA V 05/18 [facility]( [facility]) [facility]) TELE CONSULT [id number] 9 Notes Entered by: YORDAN PUCKETT 17 Aug 2018 0728 ------- ------- ------- ------- -- prostat e cancer GOPAL PUCKETT 08/17 [facility]( [facility]) [facility](Fa [facility]ette Practice [facility]) TELE CONSULT [id number] 3 Notes Entered by: Christiane QUESADA 18 Aug 2018 1121 ------- ------- ------- ------- -- med LILLIAN Man V 08/18 [facility]( [facility]) [facility](Fa [facility]ette Practice [facility]) TELE CONSULT [id number] Notes Entered by: JOSE AGUILAR V 06 Sep 2018 1233 ------- ------- ------- ------- -- Med refill/ PE LILLIAN OLIVIA V 09/06 [facility]( Family Practic e Gold FX) [facility](Ur ol [facility]state [facility]) OUTPATIENT [id number] f/u prostat e ARIANAKATHRYN SALOMÓN 09/08 Released w/o Limitations [facility]( Urol Prostat e Center [facility]) [facility](Ca [facility] [place]) TELE CONSULT [id number] 2 Notes Entered by: SANTOS DONG 11 Sep 2018 1326 ------- ------- ------- ------- -- FOR REGARDI NGT A MRI TEST RESULT. POC (CELL) THANK YOU NACHO GILLIS 09/11 [facility]( Cardiol [facility]gy Clinic [facility]) [facility](Fa jeanette Practice Gold FX) OUTPATIENT [id number] annual check up LILLIAN OLIVIA V 09/22 Released w/o Limitations [facility]( Family Practic e Gold FX) [facility](Ur ology Cl Be) TELE CONSULT [id number] 10/05 [facility]( Urology Cl [facility]) [facility](Ur ol Prostate Center [facility]) OUTPATIENT [id number] [address] 11/01 Released w/o Limitations [facility]( Urol Prostat e Center Be) [facility](Fa jeanette Practice Gold FX) TELE CONSULT [id number] Notes Entered by: Christiane QUESADA 16 Nov 2018 1132 ------- ------- ------- ------- -- med refill LILLIAN OLIVIA V 11/16 [facility]( Family Practic e Gold FX) [facility](Fa jeanette Practice Gold FX) OUTPATIENT [id number] wart treatme nt EVA OLIVIAHI V 12/01 Released w/o Limitations [facility]( Family Practic e Gold FX) [facility](Ph ys Therapy CL BE) OUTPATIENT [id number] Plantar fascial fibroma tosis per pt. SHERITA SHAVER P 01/11 Released w/o Limitations [facility]( Phys Therapy CL [facility]) [facility]ology [facility] [place]) OUTPATIENT [id number] 6 Actinic keratos is per pt DEMETRIO BOBBY N 01/15 Released w/o Limitations [facility]( [facility] [place] [facility]) [facility](Or thotics Cl [facility]) OUTPATIENT [id number] 1 custom orthoti cs LANDEN PADMINI N 01/17 Released w/o Limitations [facility]( Orthoti cs Cl BE) [facility]) OUTPATIENT [id number] 7 f/u plantar wart,Rx LILLIAN OLIVIA V 02/08 Released w/o Limitations [facility]( Family [facility]ic [facility]) [facility](Ph [facility]sical Medicine Clinic [facility]) OUTPATIENT [id number] Pain in left foot MITZY, AGUSTO M 02/21 Released w/o Limitations [facility]( Physica l Medicin e Clinic [facility]) [facility](Po diatry Clinic [facility] ) OUTPATIENT [id number] 7 Pain in unspeci fied ankle and joints of unspeci fied foot BI RODRIGUEZ 03/21 Released w/o Limitations [facility]( Podiatr [facility] Clinic [facility]) [facility](Ur [facility]state [facility]) OUTPATIENT [id number] f/u b4 move [address] 03/26 Released w/o Limitations [facility]( [facility]) [address] [place] [address] Chan [place] ([facility]Sco [facility] T[facility] Blue) OUTPATIENT [id number] just moved to area, meet PCM, discuss scripts , special ists needs LAW, JELLY D 05/29 Released w/o Limitations [address] [place] [address] Chan [facility] ([facility]S cott [facility]) [address] [place] [address] Chan [facility] ([facility]Sco tt [facility]) OUTPATIENT [id number] neck and arm pain/uc c/er refusal /[id number] AYAN MANNING 06/25 Released w/o Limitations [address] [place] [address] Chan [facility] ([facility]S [facility]) [address] [place] [address] Chan [facility] [facility]Sco tt [facility] Blue) OUTPATIENT [id number] infecte d thumb, left hand JHOANA CASEY 07/11 Released w/o Limitations [address] [place] [address] Chan [facility] [facility]S cott [facility] Blue) [address] [place] [address] Chan [facility] [facility]Sco [facility]) TELE CONSULT [id number] Notes Entered by: Jennifer CASEY 12 Jul 2019 1231 ------- ------- ------- ------- -- Lab results JHOANA CASEY 07/12 Other Not Elsewhere Classified [address] [place] [address] Group Chan [facility]S cott [facility] Tm Blue) [address] [place] [address] Chan [facility])(Sco tt [facility]) TELE CONSULT [id number] Notes Entered by: ADRIÁN GREGORY 24 Jul 2019 1147 ------- ------- ------- ------- -- Referra l Renewal / Law/ -GAY White 07/24 Other Not Elsewhere Classified [address] [place] [address] Group Chan [facility]S cott [facility] Tm Blue) [address] [place] [address] Chan [facility]co [facility]) TELE CONSULT [id number] Notes Entered by: MARYANNE HAMILTON 06 Aug 2019 1328 ------- ------- ------- ------- -- Network Results SURG 9 SDG JHOANA CASEY 08/06 Other Not Elsewhere Classified [address] [place] [address] Group Chan [facility]S [facility] Blue) [address] [place] [address] Chan [facility]Sco tt [facility] T[facility] Blue) TELE CONSULT [id number] Notes Entered by: Jennifer CASEY 09 Aug 2019 1041 ------- ------- ------- ------- -- u/s results JHOANA CASEY 08/09 Other Not Elsewhere Classified [address] [place] [address] Chan [facility])(S [facility] Blue) [address] [place] [address] Chan [facility])(Sco tt [facility]) OUTPATIENT [id number] Lunesta Refill LAILACedric DARRELL T 08/17 Released w/o Limitations [address] [place] [address])(S [facility] Blue) [address] [place] [address])(Sco tt [facility]) TELE CONSULT [id number] Notes Entered by: Law TRONCOSO 27 Aug 2019 0921 ------- ------- ------- ------- -- Network results Cardiol ogy 019 RADU LIRIANO 08/27 Referred for Appointment [address] [place] [address])([facility] Blue) [address] [place] [address])(Sco tt [facility]) TELE CONSULT [id number] Notes Entered by: AL BURKETT 05 Sep 2019 1035 ------- ------- ------- ------- -- Medical Refill Request / PCM BRUCedric TAMSULO SIN 0.4mg ATORVAS TATIN 20mg PEPPER OROZCO 09/05 Medication Refill Forwarded [address] [place] [address])(S [facility] Blue) [address] [place] [address])(Sco tt [facility] Blue) OUTPATIENT [id number] renew scripts for atorvas tatin (20mg) escital opram (20 mg) by previou s PCM FARZANEH ROSENBERG 10/25 Released w/o Limitations [address] [place] [address] Chan [facility])(S [facility] Tm Blue) [address] [place] [address] Chan [facility])(Sco tt [facility] Blue) TELE CONSULT [id number] Notes Entered by: SAMANTHA ROSENBERG 26 Oct 2019 1514 ------- ------- ------- ------- -- Lab results SHAKIRAFARZANEH Soriano Esther 10/26 Released to [facility] [address] [place] [address] Chan [facility])(S cott [facility]) [address] [place] [address] Chan [facility])(Sco tt [facility]) OUTPATIENT [id number] MARIOCedric AYAN Fyo 12/02 Released w/o Limitations [address] [place] [address] Chan [facility]S cott [facility]) [address] [place] [address] Chan [facility])(Sco tt [facility]) TELE CONSULT [id number] 3 Notes Entered by: LIZ BARRERA 06 Feb 2020 1129 ------- ------- ------- ------- -- Referra l Request (appt 19 February)/Verenice w/ ABDULKADIR GRIFFIN (Jean) 02/05 Immediate Referral [address] [place] [address] Chan [facility]S [facility] Tm Blue) [address] [place] [address] Chan [facility])(Sco [facility]) TELE CONSULT [id number] Notes Entered by: CHARMAINE CARTWRIGHT 28 Feb 2020 0925 ------- ------- ------- ------- -- Rx renewal - 6 days left - Law - - [facility] VINNY MERLOS 02/27 Referred for Appointment [address] [place] [address] Chan [facility]S [facility] Blue) [address] [place] [address] Chan [facility])(Sco [facility]) OUTPATIENT [id number] In-Pers on - Med Renewal 661 RAYSA RAMIREZ 05/27 Released w/o Limitations [address] [place] [address] Chan [facility] [facility]S cott [facility]) [address] [place] [address] Chan [facility])(Sco [facility]) TELE CONSULT [id number] Notes Entered by: LIZ BARRERA 21 Aug 2020 1431 ------- ------- ------- ------- -- STAT Referra matthews Renewal Request (appt Aug)/Mamadou fitzgeralds/ [phone] PEPPER OROZCO 08/21 Immediate Referral [address] [place] [address] Chan [facility])(S cott [facility]) [address] [place] [address])([facility]co [facility]) TELE CONSULT [id number] Notes Entered by: CHARMAINE CARTWRIGHT 01 Sep 2020 1515 ------- ------- ------- ------- -- Susan matthews renewal - Elvia - - tsg PEPPER OROZCO 09/01 Released to [facility] [address] [place] [address])(S cott [facility]) [address] [place] [address])(Sco tt [facility]) OUTPATIENT [id number] In Person Appt - F/U on test results - [id number] [phone] TK DIMAOND 09/12 Released w/o Limitations [address] [place] [address] Chan [facility])(S cott [facility]) [address] [place] [address])(Sco [facility]) TELE CONSULT [id number] Notes Entered by: LIZ BARRERA 22 Sep 2020 1458 ------- ------- ------- ------- -- COVID Test Request /Elvia / TK DIAMOND 09/[address] [place] [address])(S cott [facility]) [facility] Outpatient Encounter [id number] 11/17 [facility] Outpatient Encounter [id number] 12/06 [facility] Outpatient Encounter [id number] FANNIEBIMALJennifer Plummer 01/23 [facility] Outpatient Encounter [id number] 01/25 [facility] Outpatient Encounter [id number] 02/08 [facility] Outpatient Encounter [id number] 10/05 [facility] N [facility] Outpatient Encounter [id number] 10/05 [facility] N [facility] Outpatient Encounter [id number] 10/08 [facility] Outpatient Encounter [id number] 11/06 [facility] Procedures Combined list of: 1) Procedures from Department of [facility] facilities going back up to thelast 18 months, not all [place] non-surgical procedures are included; 2) All procedures from the Department of Defense facilities. Procedure Procedure Type Code Date Perfomer Comments Sourc e No data available for this section [facility] Pharmacy OTHER TURBINECTOMY 12/25 [facility] OPHTHALMOLOGICAL SERVICES: MEDICAL EXAMINATION AND EVALUATION WITH INITIATION OF DIAGNOSTIC AND TREATMENT PROGRAM; COMPREHENSIVE, NEW PATIENT, 1 OR MORE VISITS 02/17 [facility] VISUAL FIELD EXAM,UNILAT/BI,INT ERP&REP;EXT EXM(EG,GOLDMANN VIS FLD,AT LEAST 3 ISOP PLOT&STAT DET W/IN MARKUS 30DEG/QUANT,AUTO THRSH MICHAEL,OCT G-1,32/42,HUMP VIS FLD ANAL FULL THRSH 30-2,24-2, OR 30/60-2) 02/17 [facility] DETERMINATION OF REFRACTIVE STATE 07/23 [facility]D CARDIOVASCULAR STRESS TEST USING MAXIMAL OR SUBMAXIMAL TREADMILL OR BICYCLE EXERCISE,CONTINUOU S ELECTROCARDIOGRAPH IC MONITORING,AND/OR PHARMACOLOGICAL STRESS;W SUPERVISION,INTERP RETATION AND REPORT 10/12 [facility] VISUAL FIELD EXAM,UNILAT/BI,INT ERP&REP;EXT EXM(EG,GOLDMANN VIS FLD,AT LEAST 3 ISOP PLOT&STAT DET W/IN MARKUS 30DEG/QUANT,AUTO THRSH MICHAEL,OCT G-1,32/42,HUMP VIS FLD ANAL FULL THRSH 30-2,24-2, OR 3060-2) 07/20 [facility] OPHTHALMOSCOPY, EXTENDED, WITH RETINAL DRAWING (EG, FOR RETINAL DETACHMENT, MELANOMA), WITH INTERPRETATION AND REPORT; INITIAL 07/12 [facility] SIGMOIDOSCOPY, FLEXIBLE; DIAGNOSTIC, INCLUDING COLLECTION OF SPECIMEN(S) BY BRUSHING OR WASHING, WHEN PERFORMED (SEPARATE PROCEDURE) 06/30 DoD TELE ASSESS & MGT SRV PROV QUAL NONPHYS HLTH CARE PRO TO EST PAT,PARENT,GUARD NOT ORIG REL ASSESS & MGT SRV PROV W/IN PREV 7 DAYS NOR LEAD ASSESS & MGT SRV/PX W/IN NXT 24 HR/SOON APT;5-10 MIN MED DIS 09/22 DoD TELE ASSESS & MGT SRV PROV QUAL NONPHYS HLTH CARE PRO TO EST PAT,PARENT,GUARD NOT ORIG REL ASSESS & MGT SRV PROV W/IN PREV 7 DAYS NOR LEAD ASSESS & MGT SRV/PX W/IN NXT 24 HR/SOON APT;5-10 MIN MED DIS 02/27 DoD TELE ASSESS & MGT SRV PROV QUAL NONPHYS HLTH CARE PRO TO EST PAT,PARENT,GUARD NOT ORIG REL ASSESS & MGT SRV PROV W/IN PREV 7 DAYS NOR LEAD ASSESS & MGT SRV/PX W/IN NXT 24 HR/SOON APT;5-10 MIN MED DIS 02/05 DoD PARING OR CUTTING OF BENIGN HYPERKERATOTIC LESION (EG, CORN OR CALLUS); SINGLE LESION 03/21 DoD DESTRUCTION (EG, LASER SURGERY, ELECTROSURGERY, CRYOSURGERY, CHEMOSURGERY, SURGICAL CURETTEMENT), OF BENIGN LESIONS OTHER THAN SKIN TAGS OR CUTANEOUS VASCULAR PROLIFERATIVE LESIONS; UP TO 14 LESIONS 02/08 DoD TANGENTIAL BIOPSY OF SKIN (EG, SHAVE, SCOOP, SAUCERIZE, CURETTE); SINGLE LESION 01/15 [facility] FOOT INSERT, REMOVABLE, MOLDED TO PATIENT MODEL, LONGITUDINAL ARCH SUPPORT, EACH 01/15 [facility] MANUAL THERAPY TECHNIQUES (EG, MOBILIZATION/ MANIPULATION, MANUAL LYMPHATIC DRAINAGE, MANUAL TRACTION), 1 OR MORE REGIONS, EACH 15 MINUTES 01/11 [facility] DESTRUCTION (EG, LASER SURGERY, ELECTROSURGERY, CRYOSURGERY, CHEMOSURGERY, SURGICAL CURETTEMENT), OF BENIGN LESIONS OTHER THAN SKIN TAGS OR CUTANEOUS VASCULAR PROLIFERATIVE LESIONS; UP TO 14 LESIONS 12/01 [facility] SCREENING TEST OF VISUAL ACUITY, QUANTITATIVE, BILATERAL 09/22 [facility] INFLUENZA VIRUS VACCINE, QUADRIVALENT (IIV4), SPLIT VIRUS, PRESERVATIVE FREE, 0.5 ML DOSAGE, FOR INTRAMUSCULAR USE 07/25 [facility] INJECTION, ENZYME (EG, COLLAGENASE), PALMAR FASCIAL CORD (IE, DUPUYTREN'S CONTRACTURE) 02/15 [facility] ELECTROCARDIOGRAM, ROUTINE ECG WITH AT LEAST 12 LEADS; WITH INTERPRETATION AND REPORT 01/31 [facility] MANIPULATION, PALMAR FASCIAL CORD (IE, DUPUYTREN'S CORD), POST ENZYME INJECTION (EG, COLLAGENASE), SINGLE CORD 11/23 [facility] INJECTION, ENZYME (EG, COLLAGENASE), PALMAR FASCIAL CORD (IE, DUPUYTREN'S CONTRACTURE) 11/22 [facility] HEALTH&BEHAV ASSESSMENT (EG, HEALTH-FOC CLINICAL INTERVIEW, BEHAVIORAL OBSERVATIONS, PSYCHOPHYSICOLOGIC AL MONITOR, HEALTH-ORIENT QUESTIONNAIRES), EA 15 MIN [id number] W THE PATIENT; INIT ASSESSMENT 11/01 [facility] LARYNGOSCOPY, FLEXIBLE; DIAGNOSTIC 09/22 [facility] BIOPSY, PROSTATE; NEEDLE OR PUNCH, SINGLE OR MULTIPLE, ANY APPROACH 09/16 [facility] URINALYSIS; QUALITATIVE OR SEMIQUANTITATIVE, EXCEPT IMMUNOASSAYS 08/10 [facility] INFLUENZA VIRUS VACCINE, QUADRIVALENT (IIV4), SPLIT VIRUS, PRESERVATIVE FREE, 0.5 ML DOSAGE, FOR INTRAMUSCULAR USE 07/25 [facility] UNLISTED SPECIAL SERVICE, PROCEDURE OR REPORT 07/04 [facility] FINGER SPLINT, STATIC 06/27 [facility] ELECTROCARDIOGRAM, ROUTINE ECG WITH AT LEAST 12 LEADS; WITH INTERPRETATION AND REPORT 05/13 [facility] BRIEF EMOTIONAL/BEHAVIOR AL ASSESSMENT (EG, DEPRESSION INVENTORY, ATTENTION-DEFICIT/ HYPERACTIVITY DISORDER [ADHD] SCALE), WITH SCORING AND DOCUMENTATION, PER STANDARDIZED INSTRUMENT 04/01 [facility] HEALTH AND BEHAVIOR INTERVENTION, EACH 15 MINUTES, [id number]; INDIVIDUAL 03/29 DoD DESTRUCT (EG, LASER SURGERY, ELECTROSURGERY, CRYOSURGERY, CHEMOSURGERY, SURGICAL CURETTEMENT), PREMALIGNANT LESIONS (EG, ACTINIC KERATOSES); 2ND THRU 14 LESIONS, EA (LIST SEP ADDITION CD, 1ST LESION) 01/25 [facility] HEALTH AND BEHAVIOR INTERVENTION, EACH 15 MINUTES, [id number]; INDIVIDUAL 12/10 DoD HEALTH AND BEHAVIOR INTERVENTION, EACH 15 MINUTES, [id number]; INDIVIDUAL 11/08 DoD POSTOPERATIVE FOLLOW-UP VISIT, NORMALLY INCLUDED IN THE SURGICAL PACKAGE, INDICATE THAT EVALUATION & MANAGEMENT SERVICE WAS PERFORMED DURING A POSTOPERATIVE PERIOD REASON RELATED ORIGINAL PROCEDURE 09/06 DoD POSTOPERATIVE FOLLOW-UP VISIT, NORMALLY INCLUDED IN THE SURGICAL PACKAGE, INDICATE THAT EVALUATION & MANAGEMENT SERVICE WAS PERFORMED DURING A POSTOPERATIVE PERIOD REASON RELATED ORIGINAL PROCEDURE 08/03 [facility] INFLUENZA VIRUS VACCINE, TRIVALENT (IIV3), SPLIT VIRUS, PRESERVATIVE FREE, 0.5 ML DOSAGE, FOR INTRAMUSCULAR USE 08/02 DoD POSTOPERATIVE FOLLOW-UP VISIT, NORMALLY INCLUDED IN THE SURGICAL PACKAGE, INDICATE THAT EVALUATION & MANAGEMENT SERVICE WAS PERFORMED DURING A POSTOPERATIVE PERIOD REASON RELATED ORIGINAL PROCEDURE 07/26 [facility] UNLISTED SPECIAL SERVICE, PROCEDURE OR REPORT 07/26 [facility] OPHTHALMOLOGICAL SERVICES: MEDICAL EXAMINATION AND EVALUATION, WITH INITIATION OR CONTINUATION OF DIAGNOSTIC AND TREATMENT PROGRAM; INTERMEDIATE, ESTABLISHED PATIENT 05/25 [facility] TETANUS, DIPHTHERIA TOXOIDS AND ACELLULAR PERTUSSIS VACCINE (TDAP), WHEN ADMINISTERED TO INDIVIDUALS 7 YEARS OR OLDER, FOR INTRAMUSCULAR USE 04/20 [facility] HEALTH AND BEHAVIOR INTERVENTION, EACH 15 MINUTES, [id number]; INDIVIDUAL 04/01 DoD OPHTHALMOLOGICAL SERVICES: MEDICAL EXAMINATION AND EVALUATION, WITH INITIATION OR CONTINUATION OF DIAGNOSTIC AND TREATMENT PROGRAM; INTERMEDIATE, ESTABLISHED PATIENT 02/11 [facility] OPHTHALMOLOGICAL SERVICES: MEDICAL EXAMINATION AND EVALUATION, WITH INITIATION OR CONTINUATION OF DIAGNOSTIC AND TREATMENT PROGRAM; COMPREHENSIVE, ESTABLISHED PATIENT, 1 OR MORE VISITS 01/25 [facility] ELECTROCARDIOGRAM, ROUTINE ECG WITH AT LEAST 12 LEADS; WITH INTERPRETATION AND REPORT 01/21 [facility] IMMUNIZATION ADMINISTRATION (INCLUDES PERCUTANEOUS, INTRADERMAL, SUBCUTANEOUS, OR INTRAMUSCULAR INJECTIONS); 1 VACCINE (SINGLE OR COMBINATION VACCINE/TOXOID) 01/04 [facility] ELECTROCARDIOGRAM, ROUTINE ECG WITH AT LEAST 12 LEADS; WITH INTERPRETATION AND REPORT 12/24 [facility] THERAPEUTIC PROCEDURE, 1 OR MORE AREAS, EACH 15 MINUTES; THERAPEUTIC EXERCISES TO DEVELOP STRENGTH AND ENDURANCE, RANGE OF MOTION AND FLEXIBILITY 12/21 [facility] VISUAL FIELD EXAM,UNILAT/BI,INT ERP&REP;EXT EXM(EG,GOLDMANN VIS FLD,AT LEAST 3 ISOP PLOT&STAT DET W/IN MARKUS 30DEG/QUANT,AUTO THRSH MICHAEL,OCT G-1,32/42,HUMP VIS FLD ANAL FULL THRSH 30-2,24-2, OR 3060-2) 12/16 [facility] HEALTH AND BEHAVIOR INTERVENTION, EACH 15 MINUTES, [id number]; INDIVIDUAL 12/08 [facility] OPHTHALMOLOGICAL SERVICES: MEDICAL EXAMINATION AND EVALUATION, WITH INITIATION OR CONTINUATION OF DIAGNOSTIC AND TREATMENT PROGRAM; COMPREHENSIVE, ESTABLISHED PATIENT, 1 OR MORE VISITS 11/06 [facility] HEALTH&BEHAV ASSESSMENT (EG, HEALTH-FOC CLINICAL INTERVIEW, BEHAVIORAL OBSERVATIONS, PSYCHOPHYSICOLOGIC AL MONITOR, HEALTH-ORIENT QUESTIONNAIRES), EA 15 MIN [id number] W THE PATIENT; INIT ASSESSMENT 10/10 [facility] FOOT INSERT, REMOVABLE, MOLDED TO PATIENT MODEL, LONGITUDINAL ARCH SUPPORT, EACH 10/09 [facility] FLUOROSCOPIC GUIDANCE & LOCALIZATION OF NEEDLE OR CATHETER TIP FOR SPINE/PARASPINOUS DIAG/THERAPEUTIC INJECTION PROCEDURES (EPIDURAL/SUBARACH NOID) (LIST SEPARATELY IN ADD TO CODE FOR PRIMARY PROC) 08/21 [facility] ECHOCARDIOGRAPHY,T RANSTHORACIC,REAL- TIME W IMAGE DOCUMENTATION (2D),INCLUDES M-MODE RECORDING,WHEN PERFORMED,COMPLETE ,WITH SPECTRAL DOPPLER ECHOCARDIOGRAPHY,A ND W COLOR FLOW DOPPLER ECHOCARDIOGRAPHY 08/21 [facility] THERAPEUTIC PROCEDURE, 1 OR MORE AREAS, EACH 15 MINUTES; THERAPEUTIC EXERCISES TO DEVELOP STRENGTH AND ENDURANCE, RANGE OF MOTION AND FLEXIBILITY 08/20 [facility] DETERMINATION OF REFRACTIVE STATE 08/19 [facility] DESTRUCT (EG, LASER SURGERY, ELECTROSURGERY, CRYOSURGERY, CHEMOSURGERY, SURGICAL CURETTEMENT), PREMALIGNANT LESIONS (EG, ACTINIC KERATOSES); 2ND THRU 14 LESIONS, EA (LIST SEP ADDITION CD, 1ST LESION) 07/22 [facility] INFLUENZA VIRUS VACCINE, TRIVALENT (IIV3), SPLIT VIRUS, PRESERVATIVE FREE, 0.5 ML DOSAGE, FOR INTRAMUSCULAR USE 07/18 [facility] ELECTROCARDIOGRAM, ROUTINE ECG WITH AT LEAST 12 LEADS; WITH INTERPRETATION AND REPORT 07/10 DoD MEASUREMENT OF POST-VOIDING RESIDUAL URINE AND/OR BLADDER CAPACITY BY ULTRASOUND, NON-IMAGING 07/08 [facility] BRIEF EMOTIONAL/BEHAVIOR AL ASSESSMENT (EG, DEPRESSION INVENTORY, ATTENTION-DEFICIT/ HYPERACTIVITY DISORDER [ADHD] SCALE), WITH SCORING AND DOCUMENTATION, PER STANDARDIZED INSTRUMENT 06/24 [facility] TELE ASSESS & MGT SRV PROV QUAL NONPHYS HLTH CARE PRO TO EST PAT,PARENT,GUARD NOT ORIG REL ASSESS & MGT SRV PROV W/IN PREV 7 DAYS NOR LEAD ASSESS & MGT SRV/PX W/IN NXT 24 HR/SOON APT;5-10 MIN MED DIS 06/16 DoD ELECTROCARDIOGRAM, ROUTINE ECG WITH AT LEAST 12 LEADS; WITH INTERPRETATION AND REPORT 05/21 [facility] THERAPEUTIC, PROPHYLACTIC, OR DIAGNOSTIC INJECTION (SPECIFY SUBSTANCE OR DRUG); SUBCUTANEOUS OR INTRAMUSCULAR 04/07 [facility] VISUAL FIELD EXAM,UNILAT/BI,INT ERP&REP;EXT EXM(EG,GOLDMANN VIS FLD,AT LEAST 3 ISOP PLOT&STAT DET W/IN MARKUS 30DEG/QUANT,AUTO THRSH MICHAEL,OCT G-1,32/42,HUMP VIS FLD ANAL FULL THRSH 30-2,24-2, OR 30/60-2) 03/02 [facility] APPLICATION OF FINGER SPLINT; STATIC 01/19 [facility] STONEHAND ELECTROCARDIOGRAPH IC RECORDING UP TO 48 HOUR,CONT RHYTHM RECORDING & STORAGE;INCLUD RECORDING,SCANNING ANAL W REPORT,REVIEW &INTERPRETATION,A PHYSICIAN/OTHER QUALIFIED HEALTH HOT ROLL LAMINATOR 12/14 [facility] THERAPEUTIC, PROPHYLACTIC, OR DIAGNOSTIC INJECTION (SPECIFY SUBSTANCE OR DRUG); SUBCUTANEOUS OR INTRAMUSCULAR 11/18 [facility] ELECTROCARDIOGRAM, ROUTINE ECG WITH AT LEAST 12 LEADS; WITH INTERPRETATION AND REPORT 11/02 [facility] EXTERNAL OCULAR PHOTOGRAPHY WITH INTERPRETATION AND REPORT FOR DOCUMENTATION OF MEDICAL PROGRESS (EG, CLOSE-UP PHOTOGRAPHY, SLIT LAMP PHOTOGRAPHY, GONIOPHOTOGRAPHY, STEREO-PHOTOGRAPHY ) 10/26 [facility] OPHTHALMOLOGICAL SERVICES: MEDICAL EXAMINATION AND EVALUATION WITH INITIATION OF DIAGNOSTIC AND TREATMENT PROGRAM; INTERMEDIATE, NEW PATIENT 09/23 [facility] CARDIOVASCULAR STRESS TEST USING MAXIMAL OR SUBMAXIMAL TREADMILL OR BICYCLE EXERCISE,CONTINUOU S ELECTROCARDIOGRAPH IC MONITORING,AND/OR PHARMACOLOGICAL STRESS;W SUPERVISION,INTERP RETATION AND REPORT 09/22 DoD ECHOCARDIOGRAPHY,Jey CLARK,REAL- TIME W IMAGE DOCUMENTATION (2D),INCLUDES M-MODE RECORDING,WHEN PERFORMED,COMPLETE ,WITH SPECTRAL DOPPLER ECHOCARDIOGRAPHY,A ND W COLOR FLOW DOPPLER ECHOCARDIOGRAPHY 09/06 DoD ELECTROCARDIOGRAM, ROUTINE ECG WITH AT LEAST 12 LEADS; WITH INTERPRETATION AND REPORT 09/06 [facility] SCANNING COMPUTERIZED OPHTHALMIC DIAGNOSTIC IMAGING, POSTERIOR SEGMENT, WITH INTERPRETATION AND REPORT, UNILATERAL OR BILATERAL; OPTIC NERVE 08/23 [facility] BIOPSY OF SKIN, SUBCUTANEOUS TISSUE AND/OR MUCOUS MEMBRANE (INCLUDING SIMPLE CLOSURE),UNLESS OTHERWISE LISTED (SEPARATE PROCEDURE); EACH SEPARATE/ADD LESION (LIST SEP IN ADD TO CODE FOR PRIMARY PROC) 08/03 [facility] DETERMINATION OF REFRACTIVE STATE 07/28 [facility] ULTRASONIC GUIDANCE FOR NEEDLE PLACEMENT (EG, BIOPSY, ASPIRATION, INJECTION, LOCALIZATION DEVICE), IMAGING SUPERVISION AND INTERPRETATION 07/05 [facility] TELE ASSESS & MGT SRV PROV QUAL NONPHYS HLTH CARE PRO TO EST PAT,PARENT,GUARD NOT ORIG REL ASSESS & MGT SRV PROV W/IN PREV 7 DAYS NOR LEAD ASSESS & MGT SRV/PX W/IN NXT 24 HR/SOON APT;5-10 MIN MED DIS 01/25 [facility] ARTHROCENTESIS, ASPIRATION AND/OR INJECTION, MAJOR JOINT OR BURSA (EG, SHOULDER, HIP, KNEE, SUBACROMIAL BURSA); WITHOUT ULTRASOUND GUIDANCE 10/23 [facility] ECHOCARDIOGRAPHY, TRANSTHORACIC, REAL-TIME WITH IMAGE DOCUMENTATION (2D), INCLUDES M-MODE RECORDING, WHEN PERFORMED, COMPLETE, WITHOUT SPECTRAL OR COLOR DOPPLER ECHOCARDIOGRAPHY 10/12 [facility] ELECTROCARDIOGRAM, ROUTINE ECG WITH AT LEAST 12 LEADS; WITH INTERPRETATION AND REPORT 09/30 [facility] PHYSICAL THERAPY RE-EVALUATION 09/23 [facility] APPLICATION OF A MODALITY TO 1 OR MORE AREAS; IONTOPHORESIS, EACH 15 MINUTES 07/27 [facility] APPLICATION OF A MODALITY TO 1 OR MORE AREAS; IONTOPHORESIS, EACH 15 MINUTES 07/20 [facility] PHYSICAL THERAPY RE-EVALUATION 07/16 [facility] APPLICATION OF A MODALITY TO 1 OR MORE AREAS; IONTOPHORESIS, EACH 15 MINUTES 07/02 [facility] APPLICATION OF A MODALITY TO 1 OR MORE AREAS; IONTOPHORESIS, EACH 15 MINUTES 06/29 [facility] THERAPEUTIC PROCEDURE, 1 OR MORE AREAS, EACH 15 MINUTES; THERAPEUTIC EXERCISES TO DEVELOP STRENGTH AND ENDURANCE, RANGE OF MOTION AND FLEXIBILITY 06/25 [facility] APPLICATION OF A MODALITY TO 1 OR MORE AREAS; IONTOPHORESIS, EACH 15 MINUTES 06/22 [facility] APPLICATION OF A MODALITY TO 1 OR MORE AREAS; IONTOPHORESIS, EACH 15 MINUTES 06/18 [facility] PHYSICAL THERAPY EVALUATION 06/15 [facility] DETERMINATION OF REFRACTIVE STATE 05/28 [facility] SCANNING COMPUTERIZED OPHTHALMIC DIAGNOSTIC IMAGING, POSTERIOR SEGMENT, (EG, SCANNING LASER) WITH INTERPRETATION AND REPORT, UNILATERAL 12/08 [facility] POSTOPERATIVE FOLLOW-UP VISIT, NORMALLY INCLUDED IN THE SURGICAL PACKAGE, INDICATE THAT EVALUATION & MANAGEMENT SERVICE WAS PERFORMED DURING A POSTOPERATIVE PERIOD REASON RELATED ORIGINAL PROCEDURE 11/24 [facility] UNLISTED SPECIAL SERVICE, PROCEDURE OR REPORT 11/19 [facility] ELECTROCARDIOGRAM, ROUTINE ECG WITH AT LEAST 12 LEADS; TRACING ONLY, WITHOUT INTERPRETATION AND REPORT 11/06 [facility] OPHTHALMOLOGICAL SERVICES: MEDICAL EXAMINATION AND EVALUATION, WITH INITIATION OR CONTINUATION OF DIAGNOSTIC AND TREATMENT PROGRAM; INTERMEDIATE, ESTABLISHED PATIENT 10/31 [facility] OPHTHALMIC ULTRASOUND, ECHOGRAPHY, DIAGNOSTIC; CORNEAL PACHYMETRY, UNILATERAL OR BILATERAL (DETERMINATION OF CORNEAL THICKNESS) 10/31 [facility] OPHTHALMIC ULTRASOUND, ECHOGRAPHY, DIAGNOSTIC; CORNEAL PACHYMETRY, UNILATERAL OR BILATERAL (DETERMINATION OF CORNEAL THICKNESS) 09/30 [facility] EXTERNAL OCULAR PHOTOGRAPHY WITH INTERPRETATION AND REPORT FOR DOCUMENTATION OF MEDICAL PROGRESS (EG, CLOSE-UP PHOTOGRAPHY, SLIT LAMP PHOTOGRAPHY, GONIOPHOTOGRAPHY, STEREO-PHOTOGRAPHY ) 09/19 [facility] ELECTROCARDIOGRAM, ROUTINE ECG WITH AT LEAST 12 LEADS; WITH INTERPRETATION AND REPORT 08/12 [facility] COMPREHENSIVE AUDIOMETRY THRESHOLD EVALUATION AND SPEECH RECOGNITION (97950 AND 55235 COMBINED) 08/12 [facility] DESTRUCTION (EG, LASER SURGERY, ELECTROSURGERY, CRYOSURGERY, CHEMOSURGERY, SURGICAL CURETTEMENT), OF BENIGN LESIONS OTHER THAN SKIN TAGS OR CUTANEOUS VASCULAR PROLIFERATIVE LESIONS; UP TO 14 LESIONS 07/30 [facility] SENSORIMOTOR EXAMINATION WITH MULTIPLE MEASUREMENTS OF OCULAR DEVIATION (EG, RESTRICTIVE OR PARETIC MUSCLE WITH DIPLOPIA) WITH INTERPRETATION AND REPORT (SEPARATE PROCEDURE) 02/17 [facility] INFECTIOUS AGENT ANTIGEN DETECTION BY IMMUNOASSAY WITH DIRECT OPTICAL (IE, VISUAL) OBSERVATION; STREPTOCOCCUS, GROUP A 01/13 [facility] FITTING OF SPECTACLES, EXCEPT FOR APHAKIA; BIFOCAL 12/23 [facility] IMAGING SUPERVISION, INTERPRETATION AND REPORT FOR INJECTION PROCEDURE(S) DURING CARDIAC CATH; PULMONARY ANGIOGRAPHY, AORTOGRAPHY, AND/OR SELECTIVECORONARY ANGIOGRAPHY INC VENOUS BYPASS GRAFTS 11/13 [facility] ELECTROCARDIOGRAM, ROUTINE ECG WITH AT LEAST 12 LEADS; WITH INTERPRETATION AND REPORT 11/05 [facility] SCANNING COMPUTERIZED OPHTHALMIC DIAGNOSTIC IMAGING, POSTERIOR SEGMENT, (EG, SCANNING LASER) WITH INTERPRETATION AND REPORT, UNILATERAL 10/31 [facility] OPHTHALMOSCOPY, EXTENDED, WITH RETINAL DRAWING (EG, FOR RETINAL DETACHMENT, MELANOMA), WITH INTERPRETATION AND REPORT; INITIAL 10/24 [facility] ULTRASONIC GUIDANCE FOR NEEDLE PLACEMENT (EG, BIOPSY, ASPIRATION, INJECTION, LOCALIZATION DEVICE), IMAGING SUPERVISION AND INTERPRETATION 09/16 [facility] NERVE CONDUCTION, AMPLITUDE AND LATENCY/VELOCITY STUDY, EACH NERVE; SENSORY 08/12 [facility] EDUCATION &TRAINING, PATIENT SELF-MGT QUALIFIED, NONPHYSICIAN HEALTH HOT ROLL LAMINATOR USING STDIZED CURRICULUM, [id number] W THE PATIENT (COULD INCL CAREGIVER/FAMILY) EA 30 MIN; INDIVIDUAL PATIENT 07/23 [facility] FLUOROSCOPIC GUIDANCE & LOCALIZATION OF NEEDLE OR CATHETER TIP FOR SPINE/PARASPINOUS DIAG/THERAPEUTIC INJECTION PROCEDURES (EPIDURAL/SUBARACH NOID) (LIST SEPARATELY IN ADD TO CODE FOR PRIMARY PROC) 07/22 [facility] NURSING ASSESSMENT/EVALUAT ION 07/02 [facility] INJECTION(S); SINGLE OR MULTIPLE TRIGGER POINT(S), 1 OR 2 MUSCLE(S) 07/01 [facility] THERAPEUTIC, PROPHYLACTIC OR DIAGNOSTIC INJECTION (SPECIFY SUBSTANCE OR DRUG); SUBCUTANEOUS OR INTRAMUSCULAR 06/24 [facility] ELECTROCARDIOGRAM, ROUTINE ECG WITH AT LEAST 12 LEADS; WITH INTERPRETATION AND REPORT 05/21 [facility] DOPPLER ECHOCARDIOGRAPHY, PULSED WAVE AND/OR CONTINUOUS WAVE WITH SPECTRAL DISPLAY (LIST SEPARATELY IN ADDITION TO CODES FOR ECHOCARDIOGRAPHIC IMAGING); COMPLETE 05/07 [facility] VISUAL FIELD EXAM,UNILAT/BI,INT ERP&REP;EXT EXM(EG,GOLDMANN VIS FLD,AT LEAST 3 ISOP PLOT&STAT DET W/IN MARKUS 30DEG/QUANT,AUTO THRSH MICHAEL,OCT G-1,32/42,HUMP VIS FLD ANAL FULL THRSH 30-2,24-2, OR 30/60-2) 01/01 [facility] HEEL, SACH CUSHION TYPE 12/25 [facility] URINALYSIS, BY DIP STICK OR TABLET REAGENT FOR BILIRUBIN, GLUCOSE, HEMOGLOBIN, KETONES, LEUKOCYTES, NITRITE, PH, PROTEIN, SPEC GRAVITY, UROBILINOGEN, ANY NUMBER OF CONSTITUENTS; W/O MICRO, AUTOMATED [facility] DESTRUCTION (EG, LASER SURGERY, ELECTROSURGERY, CRYOSURGERY, CHEMOSURGERY, SURGICAL CURETTEMENT), OF BENIGN LESIONS OTHER THAN SKIN TAGS OR CUTANEOUS VASCULAR PROLIFERATIVE LESIONS; UP TO 14 LESIONS 11/17 [facility] VISUAL FIELD EXAM,UNILAT/BI,INT ERP&REP;EXT EXM(EG,GOLDMANN VIS FLD,AT LEAST 3 ISOP PLOT&STAT DET W/IN MARKUS 30DEG/QUANT,AUTO THRSH MICHAEL,OCT G-1,32/42,HUMP VIS FLD ANAL FULL THRSH 30-2,24-2, OR 3060-2) 11/10 [facility] ELECTROCARDIOGRAM, ROUTINE ECG WITH AT LEAST 12 LEADS; WITH INTERPRETATION AND REPORT 11/07 [facility] ARTHROCENTESIS, ASPIRATION AND/OR INJECTION, MAJOR JOINT OR BURSA (EG, SHOULDER, HIP, KNEE, SUBACROMIAL BURSA); WITHOUT ULTRASOUND GUIDANCE 06/13 [facility] NONINVASIVE EAR OR PULSE OXIMETRY FOR OXYGEN SATURATION; SINGLE DETERMINATION 04/28 [facility] POSTOPERATIVE FOLLOW-UP VISIT, NORMALLY INCLUDED IN THE SURGICAL PACKAGE, INDICATE THAT EVALUATION & MANAGEMENT SERVICE WAS PERFORMED DURING A POSTOPERATIVE PERIOD REASON RELATED ORIGINAL PROCEDURE 02/15 [facility] ARTHROSCOPY,KNEE,S URGICAL,FOR REMOV OF LOOSE BDY,FOREIGN BDY,DEBRIDEMENT/SH AVING OF ARTICUL CARTILAG (CHONDROPLASTY) AT THE TIME OF OTHSURGICAL KNE ARTHROSCOPY IN A DIFFERENT COMPART OF THE SAME KNEE 02/08 [facility] THERAPEUTIC PROCEDURE, 1 OR MORE AREAS, EACH 15 MINUTES; GAIT TRAINING (INCLUDES STAIR CLIMBING) 02/06 [facility] UNLISTED SPECIAL SERVICE, PROCEDURE OR REPORT 01/13 [facility] UNLISTED SPECIAL SERVICE, PROCEDURE OR REPORT 12/12 [facility] CARDIOVASCULAR STRESS TEST USING MAXIMAL OR SUBMAXIMAL TREADMILL OR BICYCLE EXERCISE,CONTINUOU S ELECTROCARDIOGRAPH IC MONITORING,AND/OR PHARMACOLOGICAL STRESS;W SUPERVISION,INTERP RETATION AND REPORT 11/11 [facility] BIOPSY OF SKIN, SUBCUTANEOUS TISSUE AND/OR MUCOUS MEMBRANE (INCLUDING SIMPLE CLOSURE),UNLESS OTHERWISE LISTED (SEPARATE PROCEDURE); EACH SEPARATE/ADD LESION (LIST SEP IN ADD TO CODE FOR PRIMARY PROC) 11/09 [facility] UNLISTED SPECIAL SERVICE, PROCEDURE OR REPORT 10/12 [facility] Visual Rivers Test Extended Examination Visual Rivers Test Extended Examination 99104 01/01 FARZANEH JACOB [facility] Ophthalmological Prior Patient Start Comprehensive Care Ophthalmological Prior Patient Start Comprehensive Care 15579 01/01 FARZANEH JACOB Heel, SACH cushion type 12/25 ROBERT NAVA Destruct Of Benign Lesion By Any Method Second Through 14 11/17 KONG FITZPATRICK Destruction Of Benign Lesion By Any Method One Lesion 11/17 KONG FITZPATRICK Biopsy Skin Biopsy Skin 75181 11/17 KONG FITZPATRICK Visual Rivers Test Extended Examination Visual Rivers Test Extended Examination 14753 11/10 FARZANEH JACOB 36 point superior field ptosis test: taped and untaped; OD and OS Naomi Ophthalmological New Patient Start Intermediate Level Care Ophthalmological New Patient Start Intermediate Level Care 47231 11/10 FARZANEH JACOB Arthrocentesis Injection Of Knee Joint Arthrocentesis Injection Of Knee Joint 38683 06/13 SARAH BOATENG Postoperative Visit, Without Charge Postoperative Visit, Without Charge 32168 02/15 SARAH BOATENG Physical Therapy Gait Training Physical Therapy Gait Training 42106 02/06 BHARTI KAY Echo (2-D) Mode Complete 11/11 JARVIS GARZA Echo (Doppler) Color Flow Velocity Mapping Echo (Doppler) Color Flow Velocity Mapping 13064 11/11 JARVIS GARZA Echo (Doppler) Echo (Doppler) 22774 11/11 JARVIS GARZA Cardiovascular Stre Test Cardiovascular Stress Test 15389 11/11 JARVIS GARZA Electrocardiogram Electrocardiogram 10550 11/11 JARVIS GARZA Biopsy Skin Biopsy Skin 80172 11/09 VICTORIANO DE LA CRUZ Biopsy Skin Each Additional Lesion Biopsy Skin Each Additional Lesion 00304 11/09 VICTORIANO DE LA CRUZ Destruction Of Benign Lesion By Any Method Destruction Of Benign Lesion By Any Method 40232 02/08 LILLIAN OLIVIA Foot insert, removable, molded to patient model, longitudinal arch support, each 01/17 PADMINI SCHUSTER 2 pair of mtech fos Naomi Knife Blade Polisher Educ Orthotics Training Additional 15 Minutes Knife Blade Polisher Educ Orthotics Training Additional 15 Minutes 45385 01/17 PADMINI SCHUSTER [facility] Physical Therapy: ___ Se ion Segments, 15 Minutes Each Physical Therapy: ___ Session Segments, 15 Minutes Each 95775 01/12 SHERITA SHAVER Mobilization Soft Ti ue Mobilization Soft Tissue 57829 01/12 SHERITA SHAVER [facility] ECG 12-Lead With Interpretation And Report ECG 12-Lead With Interpretation And Report 45922 01/31 NACHO GILLIS [facility] Health And Behav A e mt Each 15 Min Initial A e ment Health And Behav Assessmt Each 15 Min Initial Assessment 51593 11/01 ALFONSO BURT [facility] Fiberoptic Laryngoscopy Flexible (diagnostic) Fiberoptic Laryngoscopy Flexible (diagnostic) 49935 09/22 NACHO AQUINO After discussing procedure and having patient sign a formal consent, topical afrin and lidocaine were applied to the nasal cavities, a flexible endoscope was used. The nasal cavities, nasopharynx, The nasal cavities and nasopharynx are normal in appearance without masses or lesions. Inferior turbinates seen b/l No mucopurulence or polyps. Eustachian orifices normal. NO masses or lesions. posterior pharyngeal wall, base of tongue, valeculla, epiglottis, false and true vocal cords, and piriform sinuses have no lesions. The VCs move normally [facility] Biopsy Of The Prostate Needle Biopsy Of The Prostate Needle 07897 09/[address] [facility] Urinalysis Urinalysis 45037 09/[address] [facility] Urinalysis Urinalysis 91619 08/10 KTAHRYN LAEN [facility] ECG 12-Lead With Interpretation And Report ECG 12-Lead With Interpretation And Report 94974 05/13 TK RIVERA [facility] Telephone calls by a registered nurse to a disease management program member for monitoring purposes; per month 04/02 CARY MIJARES 20 mins [facility] Health And Behavior Intervention, Each 15 Minutes Individual Health And Behavior Intervention, Each 15 Minutes Individual 51358 03/29 LANCE YAP [facility] Destruct Of Premalignant Lesion By Any Method 2nd Through 14 Destruct Of Premalignant Lesion By Any Method 2nd Through 14 31980 01/25 HELENE RODRÍGUEZ Patient was counseled regarding the indication for treatment (precancerous state for actinic keratosis or cosmetic reasons if done for seborrheic keratosis, acrochordons or warts) as well as, the method and expected results to include crusting, scabbing, pain, possible hyper/ hypopigmentation and recurrence of lesions prior to the procedure . [ 5 ] lesion(s) were then treated with 2 cycles of [ 5 ] sec liquid nitrogen with a thaw time of [ 15 ] seconds base upon thickness and size of lesion(s). Therapy was applied in a pulsed fashion to minimize collateral tissue injury. Patient was instructed to use Vaseline ointment to the area until healed. -cryotherapy treatment tolerated well. Naomi Destruction Of Premalignant Lesion By Any Method One Lesion Destruction Of Premalignant Lesion By Any Method One Lesion 02256 01/25 HELENE RODRÍGUEZ Destruction Of Benign Lesion By Any Method 1 - 14 Lesions Destruction Of Benign Lesion By Any Method 1 - 14 Lesions 23152 01/25 HELENE RODRÍGUEZ Health And Behavior Intervention, Each 15 Minutes Individual Health And Behavior Intervention, Each 15 Minutes Individual 41342 12/10 LANCE YAP Health And Behavior Intervention, Each 15 Minutes Individual Health And Behavior Intervention, Each 15 Minutes Individual 03079 11/08 LANCE YAP Postoperative Visit, Without Charge Postoperative Visit, Without Charge 68106 09/06 KOLBY LOZADA Postoperative Visit, Without Charge Postoperative Visit, Without Charge 84733 08/03 JESSENIA CHRISTIANSON External Ocular Photography External Ocular Photography 74637 08/03 JESSENIA CHRISTIANSON Ophthalmological Prior Patient Start Intermediate Level Care Ophthalmological Prior Patient Start Intermediate Level Care 66464 08/03 JESSENIA CHRISTIANSON Postoperative Visit, Without Charge Postoperative Visit, Without Charge 62070 07/27 KOLBY LOZADA Ophthalmological Prior Patient Start Intermediate Level Care Ophthalmological Prior Patient Start Intermediate Level Care 45223 05/25 JOHNNY HALL External Ocular Photography External Ocular Photography 91088 05/25 JOHNNY HALL Tdap Vaccine Seven Years Of Age And Above Tdap Vaccine Seven Years Of Age And Above 44361 04/20 LILLIAN OLIVIA Health And Behavior Intervention, Each 15 Minutes Individual Health And Behavior Intervention, Each 15 Minutes Individual 82455 04/01 LANCE YAP [facility] External Ocular Photography External Ocular Photography 06743 02/11 MARCIAL LOZADAA [facility] Ophthalmological Prior Patient Start Intermediate Level Care Ophthalmological Prior Patient Start Intermediate Level Care 14494 02/11 KOLBY LOZADA [facility] Ophthalmological Prior Patient Start Comprehensive Care Ophthalmological Prior Patient Start Comprehensive Care 53192 01/29 BENJI AGUIRRE [facility] Electrocardiogram Electrocardiogram 95369 01/21 [facility], Live Zoster Vaccine, Live 76010 01/04 STEPHANIE FRAUSTO [facility] Immunization Administration One Vaccine Immunization Administration One Vaccine 59240 01/04 STEPHANIE FRAUSTO [facility] ECG 12-Lead With Interpretation And Report ECG 12-Lead With Interpretation And Report 30503 12/24 TK HAMLIN [facility] Physical Therapy: ___ Se ion Segments, 15 Minutes Each Physical Therapy: ___ Session Segments, 15 Minutes Each 54695 12/21 LIZZETTE BAIN Patient instructed in wall Hamstring stretches and assisted Hamstretches (he and have done these before) ITBand stretches. Foam roll on ITB and hamstrings, mini squats, plank, and hip/arm ext 3 sets 14. [facility] Physical Medicine Physical Therapy Evaluation Physical Medicine Physical Therapy Evaluation 39950 12/21 LIZZETTE BAIN Patient with multiple joint issues which is likely contributed to the severely tight hamstrings. [facility] Visual Rivers Test Extended Examination Visual Rivers Test Extended Examination 93786 12/16 DICK LAZCANO [facility] Health And Behavior Intervention, Each 15 Minutes Individual Health And Behavior Intervention, Each 15 Minutes Individual 08856 12/08 LANCE YAP [facility] Visual Rivers Test Extended Examination Visual Rivers Test Extended Examination 07732 11/06 VIKAS FRAUSTO [facility] Ophthalmological Prior Patient Start Comprehensive Care Ophthalmological Prior Patient Start Comprehensive Care 39621 11/06 VIKAS FRAUSTO [facility] Knife Blade Polisher Educ Orthotics Training Additional 15 Minutes 10/13 GISELLA SANTILLAN [facility] Foot insert, removable, molded to patient model, longitudinal arch support, each 10/13 GISELLA SANTILLAN [facility] High - Thin Sport [facility] Health And Behav A e mt Each 15 Min Initial A e [facility] Health And Behav Assessmt Each 15 Min Initial Assessment 57353 10/10 LANCE YAP Fluoroscopic Guidance/Localiz Of Needle For Spinal Injection 08/23 HELENE BOSTON 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 71162 08/23 HELENE BOSTON Exercises A isted Exercises For ROM Exercises Assisted Exercises For ROM 03437 08/21 NICOLÁS RICHTER Physical Medicine Physical Therapy Evaluation Physical Medicine Physical Therapy Evaluation 32897 08/21 NICOLÁS RICHTER Fundus Photography Fundus Photography 19277 08/19 MORGAN DORMAN Scanning Computerized Ophthalmic Diagnostic Imaging Optic Nerve Scanning Computerized Ophthalmic Diagnostic Imaging Optic Nerve 19643 08/19 MORGAN DORMAN Determination Of Refractive State Determination Of Refractive State 09545 08/19 MOGRAN DORMAN [employer] Fitting Monofocals (Not For Aphakia) [employer] Fitting Monofocals (Not For Aphakia) 12250 08/19 MORGAN DORMAN Ophthalmological New Patient Start Comprehensive Care Ophthalmological New Patient Start Comprehensive Care 46961 08/19 MORGAN DORMAN Destruct Of Premalignant Lesion By Any Method 2nd Through 14 Destruct Of Premalignant Lesion By Any Method 2nd Through 14 18160 07/22 DEMETRIO SHARMA Patient was counseled regarding the indication for treatment (precancerous state for actinic keratosis or cosmetic reasons if done for seborrheic keratoses, acrochordons or warts) as well as, the method and expected results to include crusting, scabbing, pain, possible hyper/ hypopigmentation and recurrence of lesions prior to the procedure . [ 4 ] lesion(s) were then treated with 2 cycles of [ 4-6 ] sec liquid nitrogen with a thaw time of [ 30 ] seconds based upon thinkness and size of lesion(s). Therapy was applied in a pulsed fashion to minimize collateral tissue injury. Patient was instructed to use Vaseline ointment to the area until healed. -cryotherapy treatment tolerated well. [facility] Destruction Of Premalignant Lesion By Any Method One Lesion Destruction Of Premalignant Lesion By Any Method One Lesion 90153 07/22 DEMETRIO SHARMA [facility] Biopsy Skin Biopsy Skin 22708 07/22 DEMETRIO SHARMA After the patient was identified using both their full name as well as their date of the area was outlined with blue marker. Written informed consent was then obtained and a timeout was performed per [facility] protocol. The area was then anesthetizes with 1% lidocaine with epinephrine and a shave biopsy was performed. Following this hemostasis was achieved with aluminum chloride and Vaseline and a band aid were placed. Proper aftercare instructions were given. I will call with the biopsy results when they are available. [facility] Electrocardiogram Electrocardiogram 17620 07/15 MAEGAN SÁNCHEZ [facility] Measuremt Post-Voiding Resid Urine, Bladder Capacity Ultrasd Measuremt Post-Voiding Resid Urine, Bladder Capacity Ultrasd 48940 07/08 GOPAL PUCKETT PVR=0ml [facility] Health And Behav A e mt Each 15 Min Initial A e ment Health And Behav Assessmt Each 15 Min Initial Assessment 63232 06/24 RAVEN GRUBER [facility] Non-Physician Phone Call To Patient/Provider Brief (5-10min) Non-Physician Phone Call To Patient/Provider Brief (5-10min) 24036 06/17 ОЛЬГА HUMPHRIES [facility] Electrocardiogram Electrocardiogram 64229 05/21 ADIEL JACKSON [facility] Visual Rivers Test Extended Examination Visual Rivers Test Extended Examination 07719 03/07 BERTHA PERALTA [facility] Physical Therapy Education Orthotics Training Initial 15 Min 01/19 TK RAMOS [facility] Wound Care Debridement Selective (Up To 20 square cm) 01/19 TK RAMOS [facility] Orthopedic Splinting Of The Finger Orthopedic Splinting Of The Finger 06871 01/19 TK RAMOS [facility] Occupational Therapy Evaluation Occupational Therapy Evaluation 85053 01/19 TK RAMOS [facility] Holter Monitor 12/14 PIOTR MENDEZ [facility] Electrocardiogram Electrocardiogram 06314 11/03 FARZANEH CASTRO [facility] External Ocular Photography External Ocular Photography 81139 10/26 TK MANDUJANO Ophthalmological Prior Patient Start Intermediate Level Care Ophthalmological Prior Patient Start Intermediate Level Care 23949 10/26 TK MANDUJANO Ophthalmological New Patient Start Intermediate Level Care Ophthalmological New Patient Start Intermediate Level Care 54299 09/23 MAURICE FREDERICK [facility] Cardiac Stre Test, Phys. Supervision, Interp. And Report Cardiac Stress Test, Phys. Supervision, Interp. And Report 99968 09/22 CURTIS DUPONT Christiane Salgado Echo For Congenital Defects Transthoracic With M-Mode, Spectral, And Color Flow Echo For Congenital Defects Transthoracic With M-Mode, Spectral, And Color Flow 12504 09/06 SPENCER FRANCES Naomi Electrocardiogram Electrocardiogram 97459 09/06 FARZANEH CASTRO [facility] Scanning Computerized Ophthalmic Diagnostic Imaging Optic Nerve Scanning Computerized Ophthalmic Diagnostic Imaging Optic Nerve 48804 08/25 BERTHA PERALTA Visual Rivers Test Extended Examination Visual Rivers Test Extended Examination 64742 08/25 BERTHA PERALTA Ophthalmological Prior Patient Start Intermediate Level Care Ophthalmological Prior Patient Start Intermediate Level Care 48002 08/25 BERTHA PERALTA Biopsy Skin Each Additional Lesion Biopsy Skin Each Additional Lesion 90913 08/03 VICTORIANO DESHPANDE Biopsy Skin Biopsy Skin 05893 08/03 VICTORIANO DESHPANDE ~PROCEDURE: SHAVE BIOPSY.~ ~LOCATION(S): A-upper back b- mid back ~UNIVERSAL PROTOCOL REQUIREMENTS WERE MET PER [facility] INSTRUCTION 6320.4B.~ ~CONSENT OBTAINED AND FORM SIGNED.~ ~SITE(S) LABELLED WITH MARKING PEN CORRESPONDING TO SPECIMEN NUMBER~ ~AREAS PREPPED WITH ETOH.~ ~LOCAL ANESTHESIA PERFORMED WITH LESS THAN 1 ML OF 1% LIDOCAINE WITH EPINEPHRINE PER SITE.~ ~SITE(S) VERIFIED WITH PATIENT VIA TIMEOUT UTILIZING PATIENT'S NAME AND BIRTHDATE ~ ~BIOPSY/BIOPSIES PERFORMED.~ ~DUAL SITE-SPECIMEN CUP VERIFICATION PERFORMED VERBALLY BETWEEN PROVIDER AND CLINIC STAFF.~ ~HEMOSTASIS ACHIEVED WITH ALUMINAL CHLORIDE OR ELECTROCAUTERY.~ ~CLOSURE: SECOND INTENTION HEALING ~PETROLATEUM AND DRESSING APPLIED.~ ~WOUND CARE INSTRUCTIONS ADDRESSED WITH PATIENT AND HANDOUT GIVEN.~ ~PATIENT TOLERATED PROCEDURE WELL AND LEFT IN STABLE CONDITION.~ [facility] Determination Of Refractive State Determination Of Refractive State 14323 07/29 BERTHA PERALTA Ophthalmological New Patient Start Comprehensive Care Ophthalmological New Patient Start Comprehensive Care 52658 07/29 BERTHA PERALTA Ultrasonic Guidance For Needle Biopsy Ultrasonic Guidance For Needle Biopsy 45870 07/05 RICARDO SANTILLAN [facility] Arthrocentesis Injection Of Acromioclavicular Joint Arthrocentesis Injection Of Acromioclavicular Joint 07/05 RICARDO SANTILLAN After vebal consent about risks of bleeding, infection, bruise, steroid atrophy; and after sterile prep; and under realtime US guidance, I injected right AC jt with 1.5cc 1% lido with 20mg Kenalog. Needle entered jt space immediately, no contact w/ bony surfact. Pt tolerated procedure well, no complications. [facility] Non-Physician Phone Call To Patient/Provider Brief (5-10min) Non-Physician Phone Call To Patient/Provider Brief (5-10min) 61425 01/25 MARY STEIN [facility] Arthrocentesis Aspiration Of Intermediate Joint Arthrocentesis Aspiration Of Intermediate Joint 10/23 ARON RAMON Ultrasound Extremity, Nonvascular 10/23 ARON RAMON Echo (Doppler) Echo (Doppler) 79648 10/12 CIARRA HOUSE Echo (Doppler) Color Flow Velocity Mapping Echo (Doppler) Color Flow Velocity Mapping 46777 10/12 CIARRA HOUSE Echo (2-D) Mode Complete 10/12 CIARRA HOUSE Electrocardiogram Electrocardiogram 46335 09/30 MAEGAN SÁNCHEZ [facility] Non-Physician Phone Call To Patient/Provider Brief (5-10min) Non-Physician Phone Call To Patient/Provider Brief (5-10min) 69803 ABDULKADIR GRIFFIN [facility] Physical Medicine Physical Therapy Re-Evaluation Physical Medicine Physical Therapy Re-Evaluation 20430 09/23 MENDEZ DAVIS Modalities Iontophoresis Modalities Iontophoresis 91997 07/27 TK ALAMO Physical Therapy Mobilization Joint Physical Therapy Mobilization Joint 28539 07/27 TK ALAMO Physical Therapy: ___ Se ion Segments, 15 Minutes Each Physical Therapy: ___ Session Segments, 15 Minutes Each 13688 07/27 TK ALAMO Physical Therapy Mobilization Joint Physical Therapy Mobilization Joint 98108 07/21 CHASIDY CESPEDES [facility] Modalities Iontophoresis Modalities Iontophoresis 22078 07/21 CHASIDY CESPEDES [facility] Physical Therapy: ___ Se ion Segments, 15 Minutes Each Physical Therapy: ___ Session Segments, 15 Minutes Each 77211 07/21 CHASIDY CESPEDES [facility] Physical Therapy: ___ Se ion Segments, 15 Minutes Each Physical Therapy: ___ Session Segments, 15 Minutes Each 92914 07/16 MENDEZ DAVIS Performed 10 min of exercise education on cable system as stated above [facility] Physical Medicine Physical Therapy Re-Evaluation Physical Medicine Physical Therapy Re-Evaluation 07345 07/16 SORIN DAVISDIRA [facility] Modalities Iontophoresis Modalities Iontophoresis 65648 07/02 CHASIDY CESPEDES [facility] Physical Therapy Mobilization Joint Physical Therapy Mobilization Joint 61347 07/02 CHASIDY CESPEDES [facility] Physical Therapy: ___ Se ion Segments, 15 Minutes Each Physical Therapy: ___ Session Segments, 15 Minutes Each 61538 07/02 CHASIDY CESPEDES [facility] Physical Therapy Mobilization Joint Physical Therapy Mobilization Joint 73504 06/29 TONI JORDAN [facility] Modalities Iontophoresis Modalities Iontophoresis 57089 06/29 TONI JORDAN [facility] Physical Therapy: ___ Se ion Segments, 15 Minutes Each Physical Therapy: ___ Session Segments, 15 Minutes Each 53181 06/29 TONI JORDAN Modalities Iontophoresis Modalities Iontophoresis 22011 06/26 CHASIDY CESPEDES [facility] Physical Therapy Mobilization Joint Physical Therapy Mobilization Joint 74247 06/26 CHASIDY CESPEDES [facility] Physical Therapy: ___ Se ion Segments, 15 Minutes Each Physical Therapy: ___ Session Segments, 15 Minutes Each 74949 06/26 CHASIDY CESPEDES [facility] Modalities Iontophoresis Modalities Iontophoresis 53679 06/23 CHASIDY CESPEDES [facility] Physical Therapy Mobilization Joint Physical Therapy Mobilization Joint 93959 06/23 CHASIDY CESPEDES [facility] Physical Therapy: ___ Se ion Segments, 15 Minutes Each Physical Therapy: ___ Session Segments, 15 Minutes Each 33670 06/23 CHASIDY CESPEDES [facility] Physical Therapy Mobilization Joint Physical Therapy Mobilization Joint 72807 06/18 TONI JORDAN Modalities Iontophoresis Modalities Iontophoresis 03007 06/18 TONI JORDAN SEATED: IONTO TO RT SHLDR @ 2.5mA [facility] Physical Therapy: ___ Se ion Segments, 15 Minutes Each Physical Therapy: ___ Session Segments, 15 Minutes Each 70640 06/18 TONI JORDAN Physical Therapy: ___ Se ion Segments, 15 Minutes Each Physical Therapy: ___ Session Segments, 15 Minutes Each 21523 06/15 MENDEZ DAVIS Physical Medicine Physical Therapy Evaluation Physical Medicine Physical Therapy Evaluation 05634 06/15 MENDEZ DAVIS Visual Rivers Test Extended Examination Visual Rivers Test Extended Examination 10478 05/28 HELENE WADE Determination Of Refractive State Determination Of Refractive State 33335 05/28 HELENE WADE RX given, see scanned notes DoD Ophthalmological Prior Patient Start Comprehensive Care Ophthalmological Prior Patient Start Comprehensive Care 27299 05/28 HELENE WADE Optical Coherence Tomography 12/08 JOSE ROBERTS Corneal Pachymetry Both Eyes Corneal Pachymetry Both Eyes 67726 12/08 JOSE ROBERTS Visual Rivers Test Extended Examination Visual Rivers Test Extended Examination 73217 12/08 JOSE ROBERTS Ophthalmoscopy Extended, With Retinal Drawing - Initial Ophthalmoscopy Extended, With Retinal Drawing - Initial 63913 12/08 JOSE ROBERTS Ophthalmological Prior Patient Start Comprehensive Care Ophthalmological Prior Patient Start Comprehensive Care 74981 12/08 JOSE ROBERTS ECG Performance of Tracing Only ECG Performance of Tracing Only 22887 11/06 MARQUIS MO Basic Metabolic Panel With Total Calcium 11/06 MARQUIS MO CBC With Manual Differential CBC With Manual Differential 95610 11/06 MARQUIS MO Corneal Pachymetry Both Eyes Corneal Pachymetry Both Eyes 44328 10/31 BURTON RECINOS Visual Rivers Test Extended Examination Visual Rivers Test Extended Examination 60521 10/31 BURTON RECINOS Ophthalmological Prior Patient Start Intermediate Level Care Ophthalmological Prior Patient Start Intermediate Level Care 35299 10/31 BURTON RECINOS Fundoscopic Exam Extensive Follow-up Exam Fundoscopic Exam Extensive Follow-up Exam 29981 09/30 BURTON RECINOS Corneal Pachymetry Both Eyes Corneal Pachymetry Both Eyes 05370 09/30 BURTON RECINOS Ophthalmological Prior Patient Start Comprehensive Care Ophthalmological Prior Patient Start Comprehensive Care 51491 09/30 BURTON RECINOS Fundoscopic Exam Extensive Initial Exam Fundoscopic Exam Extensive Initial Exam 80022 09/19 MELGMACEY T [facility] Slit Lamp Examination Slit Lamp Examination 06290 09/19 NIKO MACEY T [facility] Electrocardiogram Electrocardiogram 57508 08/12 CORINNETony LETICIA S [facility] Comprehensive Audiometry Comprehensive Audiometry 55381 08/12 SRI CARRASCO Acoustic Reflex Testing 08/12 SRI CARRASCO Tympanometry Tympanometry 93011 08/12 SRI CARRASCO Evoked Otoacoustic Dania ions Comprehensive 08/12 SRI CARRASCO Destruct Of Benign Lesion By Any Method Second Through 14 07/30 SARAH MANE Destruction Of Benign Lesion By Any Method One Lesion 07/30 SARAH MANE Destruct Of Premalignant Lesion By Any Method 2nd Through 14 07/30 SARAH MANE Destruction Of Premalignant Lesion By Any Method One Lesion 07/30 SARAH MANE Biopsy Skin Each Additional Lesion Biopsy Skin Each Additional Lesion 92522 07/30 SARAH MANE Biopsy Skin Biopsy Skin 47822 07/30 SARAH MANE Ophthalmological Sensorimotor Exam Ophthalmological Sensorimotor Exam 42594 03/18 PADMINI KING Ophthalmological Prior Patient Start Comprehensive Care Ophthalmological Prior Patient Start Comprehensive Care 12863 03/18 PADMINI KING [employer] Fitting Bifocals (Not For Aphakia) [employer] Fitting Bifocals (Not For Aphakia) 65014 12/23 ARTHUR MONROY Determination Of Refractive State Determination Of Refractive State 29554 12/23 ARTHUR MONROY Ophthalmological Prior Patient Start Intermediate Level Care Ophthalmological Prior Patient Start Intermediate Level Care 42500 12/23 ARTHUR MONROY Cath Angiography Cardiac Coronary Cath Angiography Cardiac Coronary 50966 11/13 MORGAN TEIXEIRA Catheterization Of Artery Of Extremity Catheterization Of Artery Of Extremity 10040 11/13 MORGAN TEIXEIRA Cath Angiography L Heart Ventriculography Cath Angiography L Heart Ventriculography 45416 11/13 MORGAN TEIXEIRA Cath Angiography Cath Angiography 43240 11/13 MORGAN TEIXEIRA Health Maint. Unlisted Preventive Medicine Service Health Maint. Unlisted Preventive Medicine Service 32290 11/13 MORGAN TEIXEIRA Combined R & L Cath With Retrograde L Heart Cath Combined R & L Cath With Retrograde L Heart Cath 67146 11/13 MORGAN TEIXEIRA Electrocardiogram Electrocardiogram 54289 11/05 JOSE CARTER Optical Coherence Tomography 10/31 TK WESTON Ophthalmological New Patient Start Comprehensive Care Ophthalmological New Patient Start Comprehensive Care 14908 10/31 TK WESTON Determination Of Refractive State Determination Of Refractive State 83704 10/31 TK WESTON [employer] Fitting Bifocals (Not For Aphakia) [employer] Fitting Bifocals (Not For Aphakia) 72537 10/31 TK WESTON [employer] Fitting Monofocals (Not For Aphakia) [employer] Fitting Monofocals (Not For Aphakia) 74428 10/31 KT WESTON Fundoscopic Exam Extensive Initial Exam Fundoscopic Exam Extensive Initial Exam 65877 10/24 JOSE ROBERTS Ophthalmological New Patient Start Comprehensive Care Ophthalmological New Patient Start Comprehensive Care 64842 10/24 JOSE ROBERTS Transrectal Sonogram of Prostate Transrectal Sonogram of Prostate 33989 09/16 DANIEL LAM Ultrasonic Guidance For Needle Biopsy Ultrasonic Guidance For Needle Biopsy 73799 09/16 DANIEL LAM Biopsy Of The Prostate Needle Biopsy Of The Prostate Needle 58738 09/16 DANIEL LAM EMG Of One Extremity and Related Paraspinal Areas EMG Of One Extremity and Related Paraspinal Areas 38207 08/12 WENDY HALL NCS Right Ulnar Nerve Motor Function NCS Right Ulnar Nerve Motor Function 93932 08/12 WENDY HALL NCS Right Ulnar Nerve Sensory Function (Orthodromic) NCS Right Ulnar Nerve Sensory Function (Orthodromic) 63596 08/12 WENDY HALL NCS Right Median Nerve Motor Function NCS Right Median Nerve Motor Function 41626 08/12 WENDY HALL NCS Right Median Nerve Sensory Function (Orthodromic) NCS Right Median Nerve Sensory Function (Orthodromic) 66932 08/12 WENDY HALL Disease management program, follow-up/kodak e ment 07/29 ALEXX JORDAN Telephone calls by a registered nurse to a disease management program member for monitoring purposes; per month 07/29 ALEXX JORDAN Nursing a e ment/evaluation 07/29 ALEXX JORDAN Patient Counseling Medical Management Individual Patient Patient Counseling Medical Management Individual Patient 75814 07/29 ALEXX JORDAN Training And Self-Care Skills Training And Self-Care Skills 13453 07/29 ALEXX JORDAN Fluoroscopic Guidance/Localiz Of Needle For Spinal Injection 07/22 JOSE RUVALCABA Corticosteroid Inj Interlaminar Cervical C7 - T1 07/22 JOSE RUVALCABA Echo (2-D) Mode Complete 07/15 MORGAN TEIXEIRA Echo (Doppler) Color Flow Velocity Mapping Echo (Doppler) Color Flow Velocity Mapping 01641 07/15 MORGAN TEIXEIRA Echo (Doppler) Echo (Doppler) 89060 07/15 MORGAN TEIXEIRA Disease management program, follow-up/kodak e ment 07/02 ALEXX JORDAN Telephone calls by a registered nurse to a disease management program member for monitoring purposes; per month 07/02 ALEXX JORDAN Nursing a e ment/evaluation 07/02 ALEXX JORDAN Patient Counseling Medical Management Individual Patient Patient Counseling Medical Management Individual Patient 28599 07/02 ALEXX JORDAN [facility] Training And Self-Care Skills Training And Self-Care Skills 75564 07/02 ALEXX JORDAN [facility] Injection Of Trigger Point(s) One Or Two Muscle Group(s) Injection Of Trigger Point(s) One Or Two Muscle Group(s) 86230 07/01 GISELLA COTTRELL [facility] Electrocardiogram Electrocardiogram 44588 05/21 GABRIELA PAEZ [facility] Social History Combined list of available smoking, tobacco, and other social history from [facility] facilities. Social History Type Response Date Comment Sour e Tobacco smoking status NHIS VA-TOBACCO USER EVERY DAY 12/29/2022 [facility] History of tobacco use ND-TOBACCO DOESNT USE WI 30 MIN WAKEUP 12/29/2022 [facility] History of tobacco use ND-TOBACCO NEVER USED 01/01/2022 [facility] History of tobacco use ND-TOBACCO USER EVERY DAY 12/17/2020 [facility] History of tobacco use LIFETIME NON-TOBACCO USER 09/20/2017 [facility] History of tobacco use LIFETIME NON-TOBACCO USER 04/29/2015 [facility] This section is an empty social history section. [facility] Assessment and Plan Combined list of future care activities from [facility] Defense and [facility] facilities (e.g., assessment and plan notes, appointments, orders, and referrals). Additional future care activities may be listed in the Plan of Care section. Result Assessment and Plan Date Source Assessment and Plan No data available for this section 04/26/2025 [facility] Functional Status Combined list of recent functional and cognitive assessments recorded at [facility] Functional [facility] Measurement (FIM) Scale: 1 = Total Assistance (Subject = 0% +), 2 = Maximal Assistance (Subject = 25% +), 3 = Moderate Assistance (Subject = 50% +), 4 = Minimal Assistance (Subject = 75% +), 5 = Supervision, 6 = Modified [facility] (Device), 7 = Complete [facility] (Timely, Safely). Assessment Date/Time Source Assessment Type Assessment Skill Assessment Score Assessment Details No data available for this section
--- OUTSIDE RECORDS SUMMARY | 2025-04-26 12:09 | XMS_ITS ---
Author Organization [facility] Medical [facility] 1 Address [address] [place] [address] Care Team Providers Care Call Centre Supervisor Name Role Phone Keagan Saldana MD Primary Care Provider [phone] Mikel Villeda MD Unavailable [phone] Alan Medina MD Unavailable [phone] Wali Boyce MD Unavailable [phone] Antonio Reddy MD Unavailable [phone] Andrea Sam MD Unavailable [phone] Sony Marina MD PhD Unavailable [phone] Luther Cameron MD Unavailable [phone] Active Problems Problem Noted Date Diagnosed Date Elevated PSA 12/31/2024 Mild cognitive impairment 12/17/2024 Assessment & Plan (12/17/2024 11:03 AM CDT): Slums score today 26/30. Patient had this test done June 2023 and scored 28/30. We will see how coming off of Lexapro and hopefully stopping clonazepam works for memory. Encouraged patient to get a calendar again. Positive colorectal cancer screening using Colog uard test 07/27/2024 Esophageal dysphagia 11/04/2023 Assessment & Plan (11/04/2023 10:57 AM HARNESS AND BAG INSPECTOR): Pepcid 40 mg at bedtime Esophagram Dermatochalasis of unspecified eye, unspecified eyelid 08/11/2023 Deviated nasal septum 08/11/2023 Diplopia 08/11/2023 Disease of sebaceous glands 08/11/2023 Overview (08/11/2023): Reassured of benign nature of several lesions c/w sebaceous hyperplasia on forehead. Treated approx eight lesions w/ hyfrecation. Disorder of ocular adnexa 08/11/2023 Disorder of optic nerve and visual pathways 06/2023 Actinic keratosis 07/07/2023 Age-related cataract of both eyes 07/07/2023 Arthralgia of shoulder 07/07/2023 Asymmetrical sensorineural hearing loss 07/07/20 23 Bicuspid aortic valve 07/07/2023 Cervical radiculopathy 07/07/2023 Overview (07/07/2023): sx now resolved - no motor dysfunction, only minimal residual sensory changes. I have reviewd MRI personally and with patient - sx correspond with area of herniated disc at C6-7, C7-T1. D/W patient: a. Caution with any motion, activities that Chest pain 07/07/2023 Overview (07/07/2023): Pt has had exertional chest discomfort over the last 2-3 [...] Viagra (which he takes prn) with nitrates. 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 DDx to include AK, SCC, BCC. Biopsy for diagnosis. Myofascial pain syndrome 07/07/2023 Mechanical ptosis of bilateral eyelids Male erectile disorder 07/07/2023 Hyperopia 07/07/2023 Hydrocele, unspecified 07/07/2023 Arthritis of foot, right 07/07/2023 Chewing tobacco use 06/29/2023 History of Helicobacter pylori infection 023 NSAID long-term use 06/29/2023 Throat burning 06/29/2023 Assessment & Plan (11/04/2023 10:56 AM HARNESS AND BAG INSPECTOR): Pepcid 40 mg at bedtime Esophagram Neck discomfort 06/29/2023 Primary insomnia 03/25/2023 Assessment & Plan (12/17/2024 11:00 AM CDT): Stable with Lunesta 3 mg nightly. Continue. Assessment & Plan (06/17/2023 2:06 PM CDT): Well controlled; able to get good night's sleep with use of medication Continue Lunesta 3 mg nightly Assessment & Plan (03/25/2023 9:17 AM CDT): Uses Lunesta every night -has been using for extended duration; had insomnia before starting medication -well controlled with current medication; continue Lunesta 3 mg nightly Hypogonadism in male 03/25/2023 Assessment & Plan (12/17/2024 11:00 AM CDT): Has been off of the testosterone gel and has had a lot of fatigue. Followed by Dr. Cameron, who prescribes the testosterone gel for him. Patient understands concern for prostate cancer and testosterone replacement. Assessment & Plan (01/24/2024 3:24 PM CDT): Stable, well controlled; managed with urology; Assessment & Plan (06/17/2023 2:06 PM CDT): Stable, follows with Urology for management; goal testosterone is 400-500 the balance testosterone replacement therapy with risk of developing and progressing prostate cancer Assessment & Plan (03/25/2023 9:19 AM CDT): On TRT, needs regular Testosterone, PSA and CBC Continue foresta 40 mg daily; Viagra 100 mg p.r.n. GARRETT (generalized anxiety disorder) 11/24/2022 Assessment & Plan (12/17/2024 11:00 AM CDT): Patient would like to come off of Lexapro. He is currently on 20 mg. Sent in 10 mg daily to the pharmacy. Take 10 mg daily x3 weeks. If no worsened symptoms of anxiety or worsened mood, okay to take 10 mg every other day for another 2-3 weeks before stopping. Due to some memory concerns today, sending in buspirone 5 mg t.i.d. p.r.n. that he can use in place of clonazepam. Also sent in a refill of clonazepam in case this does not work. Assessment & Plan (06/17/2023 2:05 PM CDT): Well controlled; no major symptoms with use of medication Continue Lexapro 20 mg nightly; Klonopin 0.25-0.5 mg p.r.n. for high levels of anxiety Assessment & Plan (03/25/2023 9:18 AM CDT): Good relief with Klonopin, uses prn for days with high anxiety -has been several months since last need Continue Klonopin 0.25-0.5 mg p.r.n. for severe anxiety Assessment & Plan (11/24/2022 2:09 PM HARNESS AND BAG INSPECTOR): Generally well controlled, though occasionally has episodes, 2-3 times per week that cause significant distress and cause patient to be side tract Continue Lexapro 20 mg nightly, start Klonopin 0.25-0.5 mg daily p.r.n. Continue Lunesta 3 mg nightly for insomnia Primary osteoarthritis involving multiple joints 11/24/2022 Assessment & Plan (06/17/2023 2:06 PM CDT): Generally well controlled; patient is physically active, works outdoors, cares for young children Continue meloxicam 15 mg daily Assessment & Plan (03/25/2023 9:16 AM CDT): No major issues with arthritis at this time Continue meloxicam 15 mg p.r.n. for severe pain Assessment & Plan (11/24/2022 2:11 PM HARNESS AND BAG INSPECTOR): Has joint pain in multiple sites; notes increased stiffness especially after working long days Works taking care of arm; raising 3 children Continue meloxicam 15 mg daily Shortness of breath 09/13/2022 Overview (11/22/2022): Last Assessment & Plan: I recommended that he get an echocardiogram to reassess his aortic valve. I do not hear a murmur. If his echo is stable, would consider exercise stress testing. Arthritis of right foot 09/09/2022 Overview (09/09/2022): Added automatically from request for surgery [id number] Seasonal allergic rhinitis due to pollen 022 Assessment & Plan (07/26/2022 10:58 AM CDT): Nasal saline spray (Simply saline, Little Remedies, [place], [place]) 2 second sprays or 2 squeezes into each nostril while looking down over the sink, do not need to sniff in. Followed by Flonase 2 sprays into each nostril while looking down over the sink, do not sniff in or blow nose after use for at least 30 minutes twice daily STOP AFRIN USE Allergy blood test - call with results Rhinitis medicamentosa 07/26/2022 Assessment & Plan (07/26/2022 10:58 AM CDT): Nasal saline spray (Simply saline, Little Remedies, [place], [place]) 2 second sprays or 2 squeezes into each nostril while looking down over the sink, do not need to sniff in. Followed by Flonase 2 sprays into each nostril while looking down over the sink, do not sniff in or blow nose after use for at least 30 minutes twice daily STOP AFRIN USE Allergy blood test - call with results Laryngeal spasm 07/26/2022 Assessment & Plan (11/04/2023 10:56 AM HARNESS AND BAG INSPECTOR): Pepcid 40 mg at bedtime Esophagram Laryngopharyngeal reflux discussed and Handout provided Assessment & Plan (07/26/2022 11:00 AM CDT): Call if no improvement for trial of Pepcid LPR discussed and Handout provided Dupuytren's contracture of left hand 11/17/2021 Overview (11/17/2021): Added automatically from request for surgery [id number] History of colonic polyps 03/11/2021 Overview (03/11/2021): Added automatically from request for surgery [id number] S/P cervical spinal fusion 02/03/2021 Assessment & Plan (05/06/2021 10:56 AM CDT): Stable, well controlled continue to monitor Assessment & Plan (02/03/2021 3:56 PM CDT): Has left sided neck pain after working; pain is mostly based on turning head, no pain at rest -referral placed for pain management clinic; patient has previously relationship with pain management in past. -reviewed imaging from last steroid injection Heart murmur 11/05/2020 Incidental lung nodule, > 3mm and < 8mm 11/05/19 21 Overview (11/05/2020): Seen on CTA for monitoring thoracic aortic aneurysm -continue to monitor, stable in size -no history of tobacco use, no pulmonary symptoms. Assessment & Plan (05/06/2021 10:57 AM CDT): Stable, no history of tobacco use no pulmonary symptoms Continue with annual exams for aortic aneurysm to monitor lung nodules Assessment & Plan (11/05/2020 9:46 AM HARNESS AND BAG INSPECTOR): Seen on CTA for monitoring thoracic aortic aneurysm -continue to monitor, stable in size -no history of tobacco use, no pulmonary symptoms. BPH (benign prostatic hyperplasia) 06/19/2020 Overview (06/19/2020): Added automatically from request for surgery [id number] Assessment & Plan (06/19/2024 2:15 PM CDT): Stable, well controlled; no major LUTS Follows closely with Urology Continue tamsulosin 0.4 mg b.i.d. Assessment & Plan (06/17/2023 2:04 PM CDT): Stable, follows with Urology; has good control of LUTS Continues tamsulosin 0.4 mg b.i.d. Assessment & Plan (03/25/2023 9:18 AM CDT): Urinating well with tamsulosin Continue tamsulosin 0.4 mg b.i.d. Assessment & Plan (11/24/2022 2:09 PM HARNESS AND BAG INSPECTOR): Stable, well controlled; good flow with urination; no evidence of recurrence of prostate cancer; follows with Urology for surveillance Assessment & Plan (05/21/2022 6:02 PM CDT): Stable, well controlled; continue tamsulosin 0.4 mg b.i.d. Assessment & Plan (05/06/2021 10:54 AM CDT): Stable, status post TURP Continue tamsulosin 0.4 mg daily AR (congenital aortic regurgitation) 08/21/2019 Assessment & Plan (06/19/2024 2:16 PM CDT): Stable, well controlled; mild murmur noted on physical exam; recent echocardiogram Essential hypertension 08/21/2019 Assessment & Plan (12/17/2024 10:57 AM CDT): No current medications and blood pressure is at goal. Lisinopril causes dizziness and lower blood pressure in the past, which is why it was stopped. Assessment & Plan (06/19/2024 2:15 PM CDT): Stable, well controlled with no medications; continue to monitor Assessment & Plan (01/24/2024 3:23 PM CDT): Stable, well controlled, blood pressure at goal; no major issues, no chest pain or pressure Continue lisinopril 2.5 mg daily Assessment & Plan (06/17/2023 2:05 PM CDT): Stable, well controlled; blood pressure at goal Continue lisinopril 2.5 mg daily Assessment & Plan (03/25/2023 9:18 AM CDT): Stable, well controlled; blood pressure at target Continue lisinopril 2.5 mg daily Assessment & Plan (11/24/2022 2:07 PM HARNESS AND BAG INSPECTOR): Stable, well controlled; blood pressure at target with no chest pain or headaches No current medications for blood pressure Will continue to monitor closely Assessment & Plan (05/07/2022 2:46 PM CDT): Stable, well controlled; blood pressure at target today; no chest pain or headaches Continue lisinopril 5 mg nightly Given patient has episodes of elevated blood sugar, would continue low-dose blood pressure medicine Assessment & Plan (11/09/2021 8:25 PM HARNESS AND BAG INSPECTOR): Blood pressure at target today, no signs or symptoms of hypotention Continue lisinopril 2.5 mg daily Assessment & Plan (05/06/2021 10:54 AM CDT): Stable, well controlled, continue lisinopril 2.5 mg Assessment & Plan (11/05/2020 9:43 AM HARNESS AND BAG INSPECTOR): Well controlled, bp at target today though patient reports no medication x3 weeks -given aortic anuerysm, will ensure proper blood pressure control -continue lisinopril 2.5 mg daily Gastroesophageal reflux disease without esophagi tis 08/21/2019 Assessment & Plan (12/17/2024 10:57 AM CDT): Symptoms controlled with famotidine 40 mg nightly. He may think about coming off of this medication and see if symptoms return. Assessment & Plan (06/19/2024 2:16 PM CDT): Stable, well controlled; rare symptoms; would recommend continuing famotidine p.r.n. Assessment & Plan (01/24/2024 3:24 PM CDT): Stable, well controlled; no major symptoms Continue famotidine 40 mg daily Assessment & Plan (06/17/2023 2:05 PM CDT): Stable, generally well controlled; no major recent symptoms Assessment & Plan (03/25/2023 8:27 AM CDT): No iissues with acid reflux, uses elevation of head of bed Assessment & Plan (05/21/2022 6:02 PM CDT): Stable, well controlled; history of H pylori Continue to monitor Assessment & Plan (05/06/2021 10:54 AM CDT): Stable, well controlled Heart palpitations 08/21/2019 History of chest pain 08/21/2019 Major depressive disorder 08/21/2019 Assessment & Plan (06/19/2024 2:17 PM CDT): Stable, well controlled; no symptoms Continue Lexapro 20 mg daily, Lunesta 3 mg nightly; clonazepam 0.5 mg p.r.n. Assessment & Plan (01/24/2024 3:24 PM CDT): Stable, well controlled; no episodes of depression Continue Lexapro 20 mg daily Assessment & Plan (03/25/2023 9:17 AM CDT): Well, controlled, no major issues Continue Lexapro 20 mg nightly Assessment & Plan (02/03/2021 3:55 PM CDT): Stable,well controlled, doing well on Lexapro 20mg daily, continue with current dose. Assessment & Plan (11/05/2020 9:42 AM HARNESS AND BAG INSPECTOR): Well controlled with Lexapro 20 mg; will continue current medication and dose Mixed hyperlipidemia 08/21/2019 Assessment & Plan (12/17/2024 10:58 AM CDT): Lipids stable with atorvastatin 20 mg nightly. Continue. Assessment & Plan (01/24/2024 3:23 PM CDT): Stable, well controlled; encourage low-fat high-fiber diet Continue atorvastatin 20 mg daily Assessment & Plan (03/25/2023 9:17 AM CDT): Well controlled, LDL at target; elevated triglycerides Continue atorvastatin 20 mg nightly; encourage low-fat high-fiber diet Assessment & Plan (11/24/2022 2:07 PM HARNESS AND BAG INSPECTOR): Stable, well controlled; continue atorvastatin 20 mg nightly; encourage low-fat high-fiber diet Assessment & Plan (05/07/2022 2:46 PM CDT): Stable, well controlled; LDL and total cholesterol at target; elevated triglycerides Continue atorvastatin 20 mg nightly Assessment & Plan (05/06/2021 10:54 AM CDT): Stable well controlled, continue atorvastatin 20 mg daily Will continue to check lipid panel every 6 months given testosterone replacement therapy Assessment & Plan (11/05/2020 9:42 AM HARNESS AND BAG INSPECTOR): Stable, tolearting statin therapy well -continue atorvastatin 20mg, check lipids today Thoracic aortic aneurysm without rupture (CMS/HC C) 08/21/2019 Assessment & Plan (12/17/2024 10:59 AM CDT): Most recent CT of the chest in 2023 showed stable aneurysm 4.2 x 4.3 cm. Followed by cardiology. Assessment & Plan (06/19/2024 2:16 PM CDT): Stable, no major issues; continues to follow with regular surveillance Assessment & Plan (01/24/2024 3:24 PM CDT): Stable, well controlled, follows with Cardiology; regular surveillance echocardiograms to monitor aneurysms Assessment & Plan (05/21/2022 6:01 PM CDT): Stable, well controlled; follows with [facility] Continue to monitor for any changes in aneurysm Assessment & Plan (05/06/2021 10:53 AM CDT): Stable, continue with annual imaging Diverticulosis of large inte muna without perforation or abscess without bleeding 09/22/2018 Dupuytren disease of palm 07/14/2017 Contracture, left hand 05/26/2017 Prostate cancer 06/15/2016 Cancer Staging:Clinical: Unsigned Overview (12/13/2024 1:47 PM CDT): >>OVERVIEW FOR HIGH PROSTATE SPECIFIC ANTIGEN (PSA) WRITTEN ON 08/11/2023 10:25 AM BY SHADIA ROMO RMA After re-discussion with Dr. Lam, will attempt trial of Levaquin x 4 wks and repeat PSA. Fu with Dr. Lam. Assessment & Plan (12/17/2024 10:58 AM CDT): Patient following with Dr. Cameron, urology. Had prostate cancer in 2017, and they have been just doing watchful waiting, as he did not undergo any treatments at that time. Assessment & Plan (06/19/2024 2:16 PM CDT): Stable, well controlled; in active surveillance due to low-grade prostate cancer negative MRI To follow up with Urology, possible repeat biopsy Assessment & Plan (01/24/2024 3:24 PM CDT): Stable, continues to follow with Urology; no evidence of recurrence Assessment & Plan (06/17/2023 2:05 PM CDT): Inactive surveillance with Urology; continue to follow regular PSAs Assessment & Plan (03/25/2023 9:16 AM CDT): On active surveillance, increase in PSA Currently on TRT Follows with Urology for surveillance Assessment & Plan (05/06/2021 10:56 AM CDT): Follows with Urology, continue to monitor PSA Biopsy Ivan 6, patient in active surveillance of prostate cancer Assessment & Plan (02/03/2021 3:55 PM CDT): Briefly reviewed results of biopsy with patient, patient to follow-up with urology for further recommendations Assessment & Plan (11/05/2020 9:41 AM HARNESS AND BAG INSPECTOR): Stable, following with urology for management -patient on tamsulosin, and sildenafil for LUTS -on testosterone for hypogonadism Obstructive sleep apnea (adult) (pediatric) 04/02 Assessment & Plan (12/17/2024 11:00 AM CDT): Diagnosed many years ago and intolerant of CPAP, uses razor for the head of the bed. No symptoms currently. Current Treatment and Therapy Plans No current plan information found. Past Treatment and Therapy Plans No past plan information found. Lifetime Dose Tracking * Chemical Lifetime Dose Automatic Entry Manual Entr y Fluoro Time 2.918 minutes 2.918 minutes 0 minutes Air kerma at the reference point (Ka,r) 54.916 mGy 5 4.916 mGy 0 mGy Resolved Problems Problem Noted Date Diagnosed Date Resolved Date Duodenitis 09/22/2023 12/13/2024 Pneumonia 07/07/2023 12/13/2024 Hypertrophy of nasal turbinates 07/07/2023 12/13/2024 History of colonoscopy with polypectomy 03/11/2021 12/13/2024
--- OUTSIDE RECORDS SUMMARY | 2025-04-26 12:09 | XMS_ITS | Encounter Summary ---
Author Organization [facility] Healthcare Address [address] [place] [address] Care Team Providers Care Tyre Retreader Name Role Phone Keagan Saldana MD Primary Care Provider [phone] Mikel Villeda MD Unavailable [phone] Alan Medina MD Unavailable [phone] Wali Boyce MD Unavailable [phone] Antonio Reddy MD Unavailable [phone] Andrea Sam MD Unavailable [phone] Sony Marina MD PhD Unavailable [phone] Luther Cameron MD Unavailable [phone] Reason for Visit * Reason Onset Date Comments Symptom Based Call 04/26/2025 Encounter Details Date Type Department Care Team (Late st Contact Info) Description 04/26/2025 Telephone [facility] [address] [facility] [facility] [place] [address] Keagan Saldana MD [address] [place] [address] Symptom Based Call Social History Tobacco Use Types Packs/Day Years [...] AM CDT documented as of this encounter Miscellaneous Notes * Telephone Encounter - Gillian Lee MA - 04/26/2025 10:52 AM CDT Patient had an ED visit on 04/24 for Abdominal pain. Pt continues to have abdominal pain without relief of OTC medications. He reports his urologist is on vacation and unable to see someone. Can PCP office call pt to discuss symptoms and pain control. PCP appointment was not scheduled because: No appointment availability identified. Please contact patient to schedule for a ED follow up and discuss ongoing symptoms. HA Ortiz [facility] Care Import Export Clerk [phone] documented in this encounter Plan of Treatment Not on file documented as of this encounter Visit Diagnoses Not on filedocumented in this encounter Care Teams Tyre Retreader Relationship Specialty Start Date End Date Ke[place] [place] [address] PCP - General Family Medicine 11/05/20 Mikel Villeda MD [address] [facility] [address] Surgeon Plastic Surgery 11/23/21 Alan Medina MD [address] [place] [address] Veterinary Manager Cardiology 11/23/21 Wali Boyce MD [address] [place] [address] Urologist Urology 11/23/21 Antonio Reddy MD [address] [place] [address] Urologist Urology 11/23/21 Andrea Sam MD [address] [address] Wood Pole Treater Gastroenterology 11/23/21 Sony Marina MD PhD [address] [place] [address] Radiation Oncologist Radiation Oncology 02/01/25 [place] [address] [place] [address] Consulting Physician Urology 02/01/25 documented as of this encounter
--- OUTSIDE RECORDS SUMMARY | 2025-04-26 12:09 | XMS_ITS | Encounter Summary ---
Author Organization [facility] Healthcare Address [address] [place] [address] Care Team Providers Care Pattern Hanger Name Role Phone Keagan Saldana MD Primary Care Provider [phone] Mikel Villeda MD Unavailable [phone] Alan Medina MD Unavailable [phone] Wali Boyce MD Unavailable [phone] Antonio Reddy MD Unavailable [phone] Andrea Sam MD Unavailable [phone] Sony Marina MD PhD Unavailable [phone] Luther Cameron MD Unavailable [phone] Reason for Visit * Reason Comments Abdominal Pain Urinary Problem Encounter Details Date Type Department Care Team (Late st Contact Info) Description 04/24/2025 10:33 PM CDT - 04/25/2025 3:13 AM CDT Emergency [facility] Emergency Department [address] [place] [address] Bob Ríos MD [address] [place] [address] Abdominal pain (Primary Dx); Urinary problem in male Discharge Disposition: Discharge to home or self care Social History Tobacco Use Types Packs/Day Years [...] AM CDT documented as of this encounter Last Filed Vital Signs Vital Sign Reading Time Taken Comments Blood Pressure 115/58 04/24/2025 9:49 PM CDT Pulse 71 04/24/2025 9:49 PM CDT Temperature 37.1 C (98.8 F) 04/24/2025 9:49 PM CDT Respiratory Rate 16 04/24/2025 9:49 PM CDT Oxygen Saturation 95% 04/24/2025 9:49 PM CDT Inhaled Oxygen Concentration - - Weight 89.8 kg (198 lb) 04/24/2025 7:57 PM CDT Height 182.9 cm (6' 0.01) 04/24/2025 7:57 PM CD T Body Mass Index 26.85 04/24/2025 7:57 PM CDT documented in this encounter Discharge Instructions * Discharge Instructions* Bay Rawls MD - 04/25/2025 3:01 AM CDT You were seen in the ED for lower abdominal pain and urinary concerns. Your lab results did not show signs of active infection. We recommend that you have scheduled pain control for the next few dayswith tylenol (up to 1000mg) every 6 to 8 hours combined with ibuprofen (up to 800mg) every 6 to 8 hours--You should take tylenol followed by ibuprofen, they can be spaced to every 3 hours, for example, start at 6AM with 1000mg tylenol, then can take 600mg ibuprofen at 9AM, then 1000mg tylenol againat 12pm. You should decrease the dosing and frequency of pain medication over the next few days as pain is under control. We will also send you a short course prescription of PYRIDIUM, which you should take with meals. Be warned that this medication can change the color of your urine. This medication is helpful for pain related to the urinary system. You should follow up with your urologist for any other concerns related to your surgery. You should return to the ED if you develop high fevers that are not responding to tylenol/ibuprofen, burning or blood in the urine, or any other concerns. documented in this encounter Medications at Time of Discharge acetaminophen (TYLENOL) 500 mg tablet Take 2 tablets (1,000 mg total) by mouth every 6 (six) hours as needed for pain for up to 10 days 30 tablet 5 04/28/20 25 atorvastatin (LIPITOR) 20 mg tabletIndications:M ixed hyperlipidemia Take 1 tablet (20 mg total) by mouth nightly 90 tablet 3 5 docusate sodium (COLACE) 100 mg capsuleIndications: constipation Take 1 capsule (100 mg total) by mouth 2 (two) times a day as needed for constipation for up to 10 days 20 capsule 5 04/28/20 25 docusate sodium (COLACE) 100 mg capsuleIndications: constipation Take 1 capsule (100 mg total) by mouth 2 (two) times a day as needed for constipation for up to 10 days For constipation. 20 capsule 5 04/28/20 25 escitalopram (LEXAPRO) 20 mg tabletIndications:G AD (generalized anxiety disorder) Take 1 tablet (20 mg total) by mouth daily 90 each 3 5 02/19/20 26 eszopiclone (LUNESTA) 3 mg tablet Take 1 tablet (3 mg total) by mouth nightly 90 tablet 5 07/18/20 25 famotidine (PEPCID) 40 mg tablet Take 1 tablet (40 mg total) by mouth nightly 90 tablet 3 4 06/14/20 25 fluticasone propionate (FLONASE) 50 mcg/actuation nasal spray Administer 1 spray into each nostril as needed for rhinitis or allergies 4 ibuprofen 200 mg tab/cap Take 3 tablet/capsule (600 mg total) by mouth every 6 (six) hours as needed for pain meloxicam (MOBIC) 15 mg tablet Take 1 tablet (15 mg total) by mouth nightly 90 tablet 3 5 phenazopyridine (PYRIDIUM) 200 mg tablet Take 1 tablet (200 mg total) by mouth 3 (three) times a day for 5 days 15 tablet 5 04/30/20 25 pseudoephedrine HCl (SUDAFED ORAL) Take 2 tablets by mouth as needed (congestion) HYDROcodone-acetami nophen (NORCO) 5-325 mg per tabletIndications:P ain Take 1 tablet by mouth every 6 (six) hours as needed for pain for up to 7 days 10 tablet 5 04/25/20 25 documented as of this encounter Ordered Prescriptions Prescription Sig Dispense Quantity Refills Last Filled Start Date End Date phenazopyridine (PYRIDIUM) 200 mg tablet Take 1 tablet (200 mg total) by mouth 3 (three) times a day for 5 days 15 tablet 04/25/2025 04/30/2025 documented in this encounter Discharge Disposition Disposition Code Departure Means Destination Comment s Discharge to home or self care documented in this encounter ED Notes * Bay Rawls MD - 04/24/2025 11:55 PM CDT HPI Chief Complaint Patient presents with Abdominal Pain Urinary Problem Chucky Sánchez is a 69yoM with PMHx of BPH s/p radical laparoscopic prostatectomy (04/[address] Boyce), biscupsid aortic valve w/ mild-mod AR, CAD, GERD, ascending aorta aneurysm presenting with abdominal pain. Patient reports removal of anna 04/24 1100 and experiencing 07/12 excruciating pain in suprapubic area and perineum that was described as constant and was aggravated by movement an hour or2 hours later. Patient describes pain as bladder spasms. Patient tried to void around 1300 and noticed a few dribbles of urine coming out with a slight tinge of blood at the beginning which then resolved. He has been avoiding sitting down in the toilet since it hurts the perineum and anal area when he sits down. He has been able to stool since the procedure, denies blood in stool, though did have 1x very soft bowel movement. His pain has been well controlled since the surgery and had not needed to take much pain medicine until today. While on triage, patient was bladder scanned and had 248mL. He has been avoiding to drink much fluids as he is afraid to urinate. He used to take tamsulosin for BPH but has not taken it. Denies any fevers, chills, headaches, changes in vision, sick contacts, nausea, vomiting, lightheadedness, chestpain, shortness of breath, cough. Patient History: Patient Active Problem List Diagnosis Date Noted Elevated PSA 12/31/2024 Mild cognitive impairment 12/17/2024 Positive colorectal cancer screening using Cologuard test 07/27/2024 Esophageal dysphagia 11/04/2023 Dermatochalasis of unspecified eye, unspecified eyelid 08/11/2023 Deviated nasal septum 08/11/2023 Diplopia 08/11/2023 Disease of sebaceous glands 08/11/2023 Disorder of ocular adnexa 08/11/2023 Disorder of optic nerve and visual pathways 08/11/2023 Actinic keratosis 07/07/2023 Age-related cataract of both eyes 07/07/2023 Arthralgia of shoulder 07/07/2023 Asymmetrical sensorineural hearing loss 07/07/2023 Bicuspid aortic valve 07/07/2023 Cervical radiculopathy 07/07/2023 Chest pain 07/07/2023 Convergence palsy 07/07/2023 Corneal guttata 07/07/2023 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 07/07/2023 Deposits (accretions) on teeth 07/07/2023 Derangement of lateral meniscus 07/07/2023 Subjective tinnitus 07/07/2023 Regular astigmatism 07/07/2023 Primary localized osteoarthrosis of shoulder region 07/07/2023 Presbyopia 07/07/2023 Post-void dribbling 07/07/2023 Neoplasm of uncertain behavior of skin 07/07/2023 Myofascial pain syndrome 07/07/2023 Mechanical ptosis of bilateral eyelids 07/07/2023 Male erectile disorder 07/07/2023 Hyperopia 07/07/2023 Hydrocele, unspecified 07/07/2023 Arthritis of foot, right 07/07/2023 Chewing tobacco use 06/29/2023 History of Helicobacter pylori infection 06/29/2023 NSAID long-term use 06/29/2023 Throat burning 06/29/2023 Neck discomfort 06/29/2023 Primary insomnia 03/25/2023 Hypogonadism in male 03/25/2023 GARRETT (generalized anxiety disorder) 11/24/2022 Primary osteoarthritis involving multiple joints 11/24/2022 Shortness of breath 09/13/2022 Arthritis of right foot 09/09/2022 Seasonal allergic rhinitis due to pollen 07/26/2022 Rhinitis medicamentosa 07/26/2022 Laryngeal spasm 07/26/2022 Dupuytren's contracture of left hand 11/17/2021 History of colonic polyps 03/11/2021 S/P cervical spinal fusion 02/03/2021 Heart murmur 11/05/2020 Incidental lung nodule, > 3mm and < 8mm 11/05/2020 BPH (benign prostatic hyperplasia) 06/19/2020 AR (congenital aortic regurgitation) 08/21/2019 Essential hypertension 08/21/2019 Gastroesophageal reflux disease without esophagitis 08/21/2019 Heart palpitations 08/21/2019 History of chest pain 08/21/2019 Major depressive disorder 08/21/2019 Mixed hyperlipidemia 08/21/2019 Thoracic aortic aneurysm without rupture (CMS/HCC) (HCC) 08/21/2019 Diverticulosis of large intestine without perforation or abscess without bleeding 09/22/2018 Dupuytren disease of palm 07/14/2017 Contracture, left hand 05/26/2017 Prostate cancer (HCC) 06/15/2016 Obstructive sleep apnea (adult) (pediatric) 04/20/2016 Past Medical History: Diagnosis Date Adenomatous colon polyp AI (aortic insufficiency) COVID-19 Elevated PSA GARRETT (generalized anxiety disorder) GERD (gastroesophageal reflux disease) H. pylori infection Heart murmur History of colonoscopy with polypectomy 03/11/2021 History of hypertension HLD (hyperlipidemia) Hypogonadism in male Hypotestosteronism Major depressive disorder LIMA (obstructive sleep apnea) Osteoarthritis PONV (postoperative nausea and vomiting) Prostate cancer (HCC) Pulmonary nodules SNHL (sensorineural hearing loss) Thoracic aortic aneurysm without rupture 09/07/2019 4.5 cm Past Surgical History: Procedure Laterality Date BIOPSY Left 11/27/2021 Biopsy nailbed left long finger CARDIAC CATHETERIZATION 11/13/2008 COLONOSCOPY 06/16/2021 CYSTOSCOPY 07/24/2020 DUPUYTREN CONTRACTURE RELEASE Left 11/27/2021 Excision left hand ESOPHAGOGASTRODUODENOSCOPY FOOT SURGERY Right 09/02/2023 ARTHRODESIS TOE, right big toe fusion HERNIA REPAIR Left 1985 KNEE ARTHROSCOPY Right 2006 KNEE ARTHROSCOPY W/ LATERAL RELEASE January 2007 right knee LASIK 2018 NASAL TURBINATE REDUCTION 2008 PROSTATE SURGERY 07/24/2020 UroLift PROSTATE SURGERY 01/30/2021 Biopsy REFRACTIVE SURGERY Bilateral 2018 LASIK SPINAL FUSION 2014 C4-T1 ACDF TRANSURETHRAL RESECTION OF PROSTATE 03/2015 Family History Problem Relation Age of Onset Cancer Mother lung cancer Heart disease Father Heart attack Father No Known Problems Sister Cancer Brother prostate cancer Social History Tobacco Use Smoking status: Never Smokeless tobacco: Current Types: Chew Vaping Use Vaping status: Former Substances: Nicotine Substance and Sexual Activity Alcohol use: Yes Alcohol/week: 2.0 standard drinks of alcohol Types: 2 Shots of liquor per week Comment: once weekly Drug use: Never Sexual activity: Defer Partners: Female control/protection: None Social History Social History Narrative Not on file Review of Systems Review of Systems Constitutional: Negative for chills and fever. HENT: Negative for sore throat and trouble swallowing. Eyes: Negative for pain and visual disturbance. Respiratory: Negative for cough, shortness of breath and wheezing. Cardiovascular: Negative for chest pain and palpitations. Gastrointestinal: Positive for abdominal pain and rectal pain. Negative for abdominal distention, blood in stool, constipation, nausea and vomiting. Genitourinary: Positive for difficulty urinating. Negative for hematuria. Difficulty urinary due to pain Musculoskeletal: Negative for arthralgias and back pain. Skin: Negative for color change and rash. Neurological: Negative for seizures, syncope, numbness and headaches. All other systems reviewed and are negative. Physical Exam ED Triage Vitals [04/24/251956] Temp Pulse Resp BP SpO2 36.6 ??C (97.9 ??F) 70 20 130/69 96 % Temp src Heart Rate Source Patient Position BP Location FiO2 (%) Oral -- -- -- -- Height Height Method Weight Weight Method 1.829 m (6' 0.01) Stated 89.8 kg (198 lb) Stated Physical Exam Vitals and nursing note reviewed. Constitutional: General: He is not in acute distress. Appearance: He is well-developed. Comments: Sitting in wheelchair and avoids moving HENT: Head: Normocephalic and atraumatic. Eyes: Extraocular Movements: Extraocular movements intact. Conjunctiva/sclera: Conjunctivae normal. Cardiovascular: Rate and Rhythm: Normal rate and regular rhythm. Heart sounds: Normal heart sounds. No murmur heard. Pulmonary: Effort: Pulmonary effort is normal. No respiratory distress. Breath sounds: Normal breath sounds. No wheezing or rales. Abdominal: General: A surgical scar is present. Bowel sounds are normal. There is no distension. Palpations: Abdomen is soft. There is no shifting dullness. Tenderness: There is abdominal tenderness in the periumbilical area and suprapubic area. There is no guarding or rebound. Genitourinary: Testes: Cremasteric reflex is present. Right: Swelling present. Left: Swelling present. Comments: No ecchymosis on anal area or perineum. Sensation is intact on bilateral perineum area. Musculoskeletal: General: No swelling. Cervical back: Neck supple. Skin: General: Skin is warm and dry. Capillary Refill: Capillary refill takes less than 2 seconds. Comments: Ecchymosis around surgical sites on abdomen and ecchymosis on bilateral testicles with scrotal edema. Neurological: General: No focal deficit present. Mental Status: He is alert and oriented to person, place, and time. Psychiatric: Mood and Affect: Mood normal. MDM Medical Decision Making Chucky Sánchez is a 69yoM with PMHx of BPH s/p radical laparoscopic prostatectomy (04/[address] Boyce), biscupsid aortic valve w/ mild-mod AR, CAD, GERD, ascending aorta aneurysm presenting with abdominal pain. Differential diagnosis includes complications of surgery, trauma, cystitis, pyelonephritis. Based on history, patient is limiting voids because of uncontrollable pain. He was able to spontaneously void with a dose of systemic pain meds and pyridium. Patient was able to have better pain control after IV fluids and pyridium. Given clean UA with normal changes expected after pulling foleycatheter, his abdominal pain and urinary problems are self-limiting in nature and are secondary to pain. He is agreeable to be discharged home, to have scheduled pain control for the next few days along with pyridium (5-days) and to follow up with urology, as needed. He was advised to the return [facility] ED if he develops any concerning signs including unexpected high fevers, dysuria, hematuria. Hewas also warned that the medication can turn his urine an orange color. Amount and/or Complexity of Data Reviewed Labs: ordered. Decision-making details documented in ED Course. Risk Prescription drug management. Attending Summary of Care ED Course as of 04/25/25 0309 Time: 04/25 104 Value: WBC(!): 14.52 Comment: WBC increased from 10 about 8 days ago, and neutrophil predominance. By: Bay Rawls MD Time: 04/25 112 Comment: ED attending attestation: Patient is a 69-year-old male presenting with a complaint of abdominal pain, urinary retention. He had a radical prostatectomy about a week ago when removed his Anna today per instructions. He has been able to void since then. He has postoperative changes on his lower abdomen with some bruising but no sign of infection of the scar, or wound. He will attempt to void here, but if can not do so may need a replacement of a Anna catheter By: Bob Ríos MD Abdominal pain Urinary problem in male Bay Rawls MD Resident 04/25/25 0309 Cosigned by Bob Ríos MD at 04/25/2025 5:49 AM CDT Associated attestation - Bob Ríos MD - 04/25/2025 5:49 AM CDT I have seen and examined the patient on 04/24/2025. I agree with the findings and plan of care as documented in the resident's note. * Gemma Linares RN - 04/24/2025 11:52 PM CDT Bed: [id number] Expected date: Expected time: Means of arrival: Comments: 3-3 Gemma Linares RN 04/24/25 2352 * Gemma Linares RN - 04/24/2025 10:33 PM CDT Bed: [id number] Expected date: Expected time: Means of arrival: Comments: Gemma Salguero RN 04/24/25 2233 * Jose Michelle RN - 04/24/2025 7:58 PM CDT Pt to Ed from home for pain in his perineum and lower abdomen. Pt underwent a prostatectomy on 04/17, he had his anna catheter removed today at 11am and has had 10/10 pain since the removal. Pt states that it feels like bladder spasms or that he is retaining urine. Bladder scan in triage showed 248mL in pt's bladder. Pt also endorsing having difficulty urinating since the removal of the anna. Pt family called urology compensation supervisor which told them to come to [facility] ED. documented in this encounter Miscellaneous Notes * Plan of Care - Elmer Alexandra RN - 04/24/2025 8:36 PM CDT 04/24/252034 Type Readmission </= 30 Days? Yes High Utilizer >/= 4 Hospitalizations in 12 Months? No Is this Patient Active with an Outpatient Case Management Program? No Record Review of Prior Admission Was this Readmission Planned? No Disposition at Prior Admit D/C Home, no service Was the D/C Location what the Care Team Recommended? Yes High Risk Medications Opioids;Psychiatric;NSAIDS Is Patient ACO No Patient Interview Did Patient have assigned PCP on Discharge? Yes Was Appointment made on Index Discharge? Yes Appointment made with PCP Primary Readmission Reason Complications from previous admission (likely related to) Pt had recent [facility]/inpt admission <= 7 days. Please notify ED CM and/or SW of any needs. Pt d/c on 04/18/25 to home. Returning with abd pain. Follow up appt's scheduled with PCP and urology service. No SW needs identified at this time. documented in this encounter Plan of Treatment Not on file documented as of this encounter Procedures Procedure Name Priority Date/Time Associated Diagnosis Comments URINALYSIS AND REFLEX TO MICROSCOPIC AND CULTURE STAT 04/25/2025 1:51 AM CDT URINALYSIS, MICROSCOPIC ONLY STAT 04/25/2025 1:51 AM CDT URINE CULTURE STAT 04/25/2025 1:51 AM CDT EGFR STAT 04/24/2025 11:54 PM CDT DIFFERENTIAL AUTO STAT 04/24/2025 11: 54 PM CDT CBC WITH AUTO DIFFERENTIAL STAT 04/24/2025 11:54 PM CDT PROTIME-INR STAT 04/24/2025 11:54 PM CDT LIPASE STAT 04/24/2025 11:54 PM CDT COMPREHENSIVE METABOLIC PANEL STAT 04/24/2025 11:54 PM CDT documented in this encounter Results * Urine culture Urine (04/25/2025 1:51 AM CDT) Report Final Report: No growth Urine 04/25/2025 1:51 AM CDT 04/25/2025 4:07 AM CDT Narrative [facility] - 04/26/2025 6:55 AM CDT Urine culture reflexed based upon urinalysis results. Testing performed by [facility] ([phone]) Bay Rawls MD LAB MICROBIOLOGY - [facility] ORDERABLES Final Result [facility] Department [place] [address] * (ABNORMAL) Urinalysis, microscopic only (04/25/2025 1:51 AM CDT) WBC, ur 21-50(A) 0 - 5 /HPF RBC, ur 6-10(A) 0 - 2 /HPF [facility] Epithelial cells, squamous, ur 1-5 0 - 5 /HPF [facility] Epithelial cells, transitional, ur 1-5 0 - 0 /HPF [facility] Bacteria, ur Trace(A) [facility] Mucous, ur Present(A) [facility] Hyaline casts, ur 1-5 0 - 10 /LPF [facility] Culture Reflex Comment Reflex to urine culture will be performed. [facility] Urine 04/25/2025 1:51 AM CDT 04/25/2025 1:56 AM CDT Bay Rawls MD LAB URINE ORDERABLES Fi nal Result Performing Organization Address [facility] Co de Phone Number [facility] Department [place] [address] * (ABNORMAL) Urinalysis reflex to microscopic and culture Urine (04/25/2025 1:51 AM CDT) Color, ur Yellow Yellow Clarity, ur Clear Clear [facility] Specific gravity, ur 1.022 1.003 - 1.030 [facility] pH, urine 6.0 [facility] Comment: Interpretive Data U rine pH is affected by diet, medications, systemic acid-base disturbances, and renal tubular function. pH may affect urinary stone formation. For example, urine pH below 6.0 may help reduce the tendency for calcium phosphate stones and pH greater than 6.0 may reduce the tendency for uric acid stone formation. Source: [facility] Current Interpretive Data was last revised on 2017 Protein, ur ql Negative Negative [facility] Glucose, ur ql Negative Negative [facility] Ketones, ur Negative Negative [facility] Bilirubin, ur Negative Negative [facility] Blood, ur 3+(A) Negative [facility] Urobilinogen, ur <2.0 <2.0 mg/dL [facility] Nitrite, ur Negative Negative [facility] Leukocyte esterase, ur 1+(A) Negative [facility] UA reflex comment Reflex to microscopic UA will be performed. [facility] Urine 04/25/2025 1:51 AM CDT 04/25/2025 1:56 AM CDT Bay Rawls MD LAB MICROBIOLOGY - [facility] ORDERABLES Final Result Performing Organization Address [facility] Co de Phone Number [facility] [place] [address] * (ABNORMAL) eGFR (04/24/2025 11:54 PM CDT) [facility] eGFR 56(L) >=60 mL/min/1. 73 m2 Comment: Interpretive Data Reference Interval Normal >/= 90 mL/min/1.73m2 Mildly decreased* 60 - 89 mL/min/1.73m2 Mildly to moderately decreased 45 - 59 mL/min/1.73m2 Moderately to severely decreased 30 - 44 mL/min/1.73m2 Severely decreased 15 - 29 mL/min/1.73m2 Kidney Failure < 15 mL/min/1.73m2 *Relative to young adult level Estimated glomerular filtration rate is determined by the 2020 CKD-EPI equation recommended by the National Kid[employer] (A Unifying Approach to GFR Estimation: Recommendations of the NKF-ASK Task Force on Reassessing the Inclusion of Race in Diagnosing Kidney Disease, JASN 2020). The CKD-EPI equation should not be used for patients with unstable renal function and has not been validated in children and those over 70. Current interpretive data was last reviewed 2021. Blood 04/24/2025 11:5 4 PM CDT 04/25/2025 12:07 AM CDT us Bay Rawls MD LAB BLOOD ORDERABLES nal Result [facility] Department [place] [address] * (ABNORMAL) Differential, auto (04/24/2025 11:54 PM CDT) [facility] Neutrophil abs 12.16(H) 1.50 - 6.50 K/cumm Imm gran abs 0.07 0.00 - 0.10 K/cumm [facility] Lymphocyte abs 1.06 0.80 - 3.30 K/cumm [facility] Monocyte abs 0.73 0.20 - 0.80 K/cumm [facility] Eosinophil abs 0.46 0.00 - 0.50 K/cumm [facility] Basophil abs 0.04 0.00 - 0.10 K/cumm [facility] Neutrophil pct 83.7 % [facility] Comment: Interpretive Data Percent cell count reference ranges are not reported, since discordance with absolute values may lead to misinterpretation of CBC data. Current Interpretive Data was last revised on 2018. Imm gran pct 0.5 % [facility] Comment: Interpretive Data Percent cell count reference ranges are not reported, since discordance with absolute values may lead to misinterpretation of CBC data. Current Interpretive Data was last revised on 2018. Lymphocyte pct 7.3 % [facility] Comment: Interpretive Data Percent cell count reference ranges are not reported, since discordance with absolute values may lead to misinterpretation of CBC data. Current Interpretive Data was last revised on 2018. Monocyte pct 5.0 % CARLENE OLIVER Comment: Interpretive Data Percent cell count reference ranges are not reported, since discordance with absolute values may lead to misinterpretation of CBC data. Current Interpretive Data was last revised on 2018. Eosinophil pct 3.2 % CARLENE OLIVER Comment: Interpretive Data Percent cell count reference ranges are not reported, since discordance with absolute values may lead to misinterpretation of CBC data. Current Interpretive Data was last revised on 2018. Basophil pct 0.3 % [facility] Comment: Interpretive Data Percent cell count reference ranges are not reported, since discordance with absolute values may lead to misinterpretation of CBC data. Current Interpretive Data was last revised on 2018. Blood 04/24/2025 11:5 4 PM CDT 04/25/2025 12:06 AM CDT Bay Rawls MD LAB BLOOD ORDERABLES nal Result [facility] Department [place] [address] * Protime-INR (04/24/2025 11:54 PM CDT) PT 12.5 9.7 - 13.0 sec INR 1.15 0.90 - 1.20 CARLENE OLIVER Comment: Interpretive data Oral anticoagulant therapeutic ranges: Venous thromboembolism prophylaxis or treatment: 2.0-3.0 CARDIOLOGY Standard range: 2.0-3.0 High-intensity range: 2.5-3.5 Refer to indication-specific guidelines for appropriate target ranges for prosthetic heart valve replacement. Current interpretive data was last revised on 2019. Blood 04/24/2025 11:5 4 PM CDT 04/25/2025 12:16 AM CDT Bay Rwals MD LAB BLOOD ORDERABLES Fi nal Result Performing Organization Address City/[facility]/ZIP Co de Phone Number [facility] Department [place] [address] * (ABNORMAL) Lipase (04/24/2025 11:54 PM CDT) [facility] Lipase 9(L) 10 - 99 Units/L Blood 04/24/2025 11:5 4 PM CDT 04/25/2025 12:07 AM CDT Bay Rawls MD LAB BLOOD ORDERABLES Fi nal Result Performing Organization Address City/[facility] Co de Phone Number [facility] Department [place] [employer] [place] [address] * (ABNORMAL) Comprehensive metabolic panel (04/24/2025 11:54 PM CDT) [facility] Sodium 137 135 - 145 mmol/L Potassium, pl 4.2 3.3 - 4.9 mmol/L [facility] Chloride 101 97 - 110 mmol/L [facility] CO2 27 22 - 32 mmol/L [facility] Anion gap 9 2 - 15 mmol/L [facility] BUN 20 6 - 25 mg/dL [facility] Creatinine 1.36(H) 0.80 - 1.30 mg/dL [facility] Glucose 127 70 - 199 mg/dL [facility] Comment: Interpretive Data Fasting glucose >/= 126 mg/dl is diagnostic for diabetes. Fasting is defined as no caloric intake for at least 8 hours. Fasting glucose between 100 mg/dl to 125 mg/dl is diagnostic of prediabetes. In a patient with classic symptoms of hyperglycemia or hyperglycemic crisis, a random glucose >/= 200 mg/dl is diagnostic for diabetes. In the absence of unequivocal hyperglycemia, results should be confirmed by repeat testing. The classification and Diagnosis of Diabetes Diabetes Care 2021; 46: S19-S40. Current interpretive data was last revised 2022. Calcium 9.4 8.5 - 10.3 mg/dL [facility] Bilirubin, total 1.2 0.1 - 1.2 mg/dL [facility] Protein, pl 7.0 6.5 - 8.5 g/dL [facility] Albumin 4.0 3.5 - 5.0 g/dL [facility] Alk phos 112 40 - 130 Units/L [facility] ALT 19 7 - 55 Units/L [facility] AST 23 10 - 50 Units/L [facility] Blood 04/24/2025 11:5 4 PM CDT 04/25/2025 12:07 AM CDT Bay Rawls MD LAB BLOOD ORDERABLES nal Result [facility] Department [place] [address] * (ABNORMAL) CBC with auto differential (04/24/2025 11:54 PM CDT) WBC 14.52(H) 3.80 - 9.90 K/cumm Hgb 12.4(L) 13.0 - 17.5 g/dL [facility] Hct 36.7(L) 38.9 - 50.3 % [facility] Plt 264 150 - 400 K/cumm [facility] MPV 10.6 9.1 - 12.3 fL [facility] RBC 4.04(L) 4.30 - 5.80 M/cumm [facility] MCV 90.8 81.3 - 96.4 fL [facility] MCH 30.7 27.1 - 33.3 pg [facility] MCHC 33.8 32.3 - 35.7 g/dL [facility] RDW CV 13.6 11.1 - 14.9 % [facility] RDW SD 44.1 35.7 - 48.1 fL [facility] NRBC abs 0.00 0.00 - 0.01 K/cumm [facility] Blood 04/24/2025 11:5 4 PM CDT 04/25/2025 12:06 AM CDT us Bay Rawls MD LAB BLOOD ORDERABLES Fi nal Result [facility] Department [place] [address] documented in this encounter Visit Diagnoses Diagnosis Abdominal pain- Primary Abdominal pain, unspecified site Urinary problem in male documented in this encounter Administered Medications Inactive Administered Medications - up to 3 most recent administrations Medication Order MAR Action Action Date Dose Rate Site HYDROmorphone (DILAUDID) injection 1 mg 1 mg, intravenous, Administer over 2 Minutes, Once, On Tue04/24/25 at 2249, For 1 dose Given 04/24/2025 10:55 PM CDT 1 mg ibuprofen (ADVIL,MOTRIN) tablet 400 mg 400 mg, oral, Once, On Tue04/24/25 at 2151, For 1 dose, Do not crush, break, or open. Given 04/24/2025 9:53 PM CDT 400 mg ketorolac (TORADOL) 15 mg/mL injection 15 mg 15 mg, intravenous, Once, On Tue04/24/25 at 2343, For 1 dose, For Adult IV push, administer over 15 seconds Given 04/24/2025 11:45 PM CDT 15 mg phenazopyridine (PYRIDIUM) tablet 200 mg 200 mg, oral, Once, On Tue04/24/25 at 2351, For 1 dose, May discolor urine and sclera. Can stain undergarments and contact lenses. Given 04/25/2025 12:40 AM CDT 200 mg sodium chloride 0.9% bolus 1,000 mL 1,000 mL, intravenous, at 999 mL/hr, Administer over 1 Hours, Once, On Tue04/24/25 at 2351, For 1 dose New Bag 04/24/2025 11:55 PM CDT 1,000 mL 999 mL/hr documented in this encounter Active and Recently Administered Medications Times are shown in CDT. Scheduled Medication Order 04/23/2025 04/24/2025 04/25/2025 HYDROmorphone (DILAUDID) injection 1 mg (COMPLETED) 1 mg, intravenous, Administer over 2 Minutes, Once, On Tue04/24/25 at 2249, For 1 dose 2255 (Given - Provider: Kate Hallman RN) ibuprofen (ADVIL,MOTRIN) tablet 400 mg (COMPLETED) 400 mg, oral, Once, On Tue04/24/25 at 2151, For 1 dose, Do not crush, break, or open. 215 (Given - Provider: Jose Michelle RN) ketorolac (TORADOL) 15 mg/mL injection 15 mg (COMPLETED) 15 mg, intravenous, Once, On Tue04/24/25 at 2343, For 1 dose, For Adult IV push, administer over 15 seconds 2345 (Given - Provider: Kate Hallman RN) phenazopyridine (PYRIDIUM) tablet 200 mg (COMPLETED) 200 mg, oral, Once, On Tue04/24/25 at 2351, For 1 dose, May discolor urine and sclera. Can stain undergarments and contact lenses. 0040 (Given - Provid er: Huy Mckeon RN) sodium chloride 0.9% bolus 1,000 mL (COMPLETED) 1,000 mL, intravenous, at 999 mL/hr, Administer over 1 Hours, Once, On Tue04/24/25 at 2351, For 1 dose 2355 (New Bag - Provider: Kate Hallman RN) 0047 (Stopped - Provider: Huy Mckeon RN) documented in this encounter Orders Medications Ordered That [place] ht Not Have Been Administered Count Last Ordered Date First Ordered Date phenazopyridine (PYRIDIUM) tablet 200 mg 1 04/25/2025 documented in this encounter Care Teams Pattern Hanger Relationship Specialty Start Date End [place] [address] PCP - General Family Medicine 11/05/20 Mikel Villeda MD [address] [place] [address] Surgeon Plastic Surgery 11/23/21 Alan Medina MD [address] [place] [address] Cocktail Waitress Cardiology 11/23/21 Wali Boyce MD [address] [place] [address] Urologist Urology 11/23/21 Antonio Reddy MD [address] [place] [address] Urologist Urology 11/23/21 Andrea Sam MD [address] [address] Lifestyle Consultant Gastroenterology 11/23/21 Sony Marina MD PhD [address] [place] [address] Radiation Oncologist Radiation Oncology 02/01/25 [place] [id number] [address] Consulting Physician Urology 02/01/25 documented as of this encounter
--- OUTSIDE RECORDS SUMMARY | 2025-04-26 12:09 | XMS_ITS | Encounter Summary ---
Author Organization [facility] Healthcare Address [address] [place] [address] Care Team Providers Care Insurance Checker Name Role Phone Keagan Saldana MD Primary Care Provider [phone] Mikel Villeda MD Unavailable [phone] Alan Medina MD Unavailable [phone] Wali Boyce MD Unavailable [phone] Antonio Reddy MD Unavailable [phone] Andrea Sam MD Unavailable [phone] Sony Marina MD PhD Unavailable [phone] Luther Cameron MD Unavailable [phone] Reason for Visit * Reason Comments Successful Phone Call Encounter Details Date Type Department Care Team (Late st Contact Info) Description 04/26/2025 [facility] ED Outreach [facility] Accountable Care Organization [address] [place] [id number] Gillian Lee MA [address] [place] [address] [address] [place] [address] Social History Tobacco Use Types Packs/Day Years [...] AM CDT documented as of this encounter Progress Notes * Gillian Lee MA - 04/26/2025 10:45 AM CDT Care Formula Weigher contacted patient regarding recent ED visit at [facility] on 04/24/25 for Abdominal pain . Status of Reason for ED Visit - Same Status Details: - Pt reports having bouts of abdominal pain that is not controlled with Tylenol andMotrin alternating. He reports needing something more effective to help control his pain with theseepisodes. Reports unknown cause. S/p radical laparoscopic prostatectomy on 04/17 and unable to see Urologist as he is on vacation. CC will notify pcp for further evaluation. He does not want to go back to ED. AWE scheduled already Discharge Instructions Reviewed - Yes Details: - Medication Reconciliation Completed - Yes Details: - Reports taking Pyridium. ED Follow-Up Appointment - Details: - No office availability. Will send message to pcp office to coordinate appointment Pt verbalized understanding of information presented. [facility] [place] [facility] Care Formula Weigher [phone] documented in this encounter Plan of Treatment Not on file documented as of this encounter Visit Diagnoses Not on filedocumented in this encounter Care Teams Insurance Checker Relationship Specialty Start Date End Date Keagan Saldana MD [address] [place] [address] PCP - General Family Medicine 11/05/20 Mikel Villeda MD [address] [place] [address] Surgeon Plastic Surgery 11/23/21 Alan Medina MD [address] [place] [address] Stock Mixer Cardiology 11/23/21 Wali Boyce MD [address] [place] [address] Urologist Urology 11/23/21 Antonio Reddy MD [address] [place] [address] Urologist Urology 11/23/21 Andrea Sam MD [address] [facility] [address] [place] [address] Spike Machine Heater Gastroenterology 11/23/21 Sony Marina MD PhD [address] [place] [address] Radiation Oncologist Radiation Oncology 02/01/25 [place] [address] [facility] [address] [place] [address] Consulting Physician Urology 02/01/25 documented as of this encounter
--- OUTSIDE RECORDS SUMMARY | 2025-04-26 12:09 | XMS_ITS | Clinical Summary ---
Author Organization [facility] Medical [facility] 1 Address [address] [place] [address] Care Team Providers Care Commercial Lending Assistant Name Role Phone Keagan Saldana MD Primary Care Provider [phone] Mikel Villeda MD Unavailable [phone] Alan Medina MD Unavailable [phone] Wali Boyce MD Unavailable [phone] Antonio Reddy MD Unavailable [phone] Andrea Sam MD Unavailable [phone] Sony Marina MD PhD Unavailable [phone] Luther Cameron MD Unavailable [phone] Allergies Active Allergy Reactions Criticality Noted Date Comments Cefazolin Nausea & Vomiting Low 11/27/2021 Oxycodone-Acetaminophe n Hives Medium 04/29/2015 Per pt previous tolerated norco Propofol Nausea & Vomiting Low 10/03/2021 Medications pseudoephedrine HCl (SUDAFED ORAL) Take 2 tablets by mouth as needed (congestion) Active fluticasone propionate (FLONASE) 50 mcg/actuation nasal spray Administer 1 spray into each nostril as needed for rhinitis or allergies 024 Active famotidine (PEPCID) 40 mg tablet Take 1 tablet (40 mg total) by mouth nightly 90 tablet 3 024 2024 Active Additional Information Patient taking differently:40 mg oral Nightly,Indications: Heartburn Prevention, Informant: Self, Reported on 04/17/2025 meloxicam (MOBIC) 15 mg tablet Take 1 tablet (15 mg total) by mouth nightly 90 tablet 3 Active Additional Information Patient taking differently:15 mg oral Nightly,Indications: pain, Informant: Self, Reported on 04/17/2025 atorvastatin (LIPITOR) 20 mg tabletIndications :Mixed hyperlipidemia Take 1 tablet (20 mg total) by mouth nightly 90 tablet 3 Active Additional Information Patient taking differently:20 mg oral Nightly,Indications: hyperlipidemia, Informant: Self, Reported on 04/17/2025 escitalopram (LEXAPRO) 20 mg tabletIndications :GARRETT (generalized anxiety disorder) Take 1 tablet (20 mg total) by mouth daily 90 each 3 025 2025 Active Additional Information Patient taking differently:20 mg oralNightly, Indications: Anxiety with Depression, Informant: Self, Reported on 04/17/2025 clonazePAM (KlonoPIN) 0.5 mg tabletIndications :GARRETT (generalized anxiety disorder) Take 1 tablet (0.5 mg total) by mouth daily as needed for anxiety 14 tablet 2 Active ibuprofen 200 mg tab/cap Take 3 tablet/capsule (600 mg total) by mouth every 6 (six) hours as needed for pain Active oxyBUTYnin (DITROPAN) 5 mg tablet Take 1 tablet (5 mg total) by mouth 3 (three) times a day for 6 days Please do not take 24 hours prior to anna catheter removal. Do not take after anna catheter removal 18 tablet Active docusate sodium (COLACE) 100 mg capsuleIndication s:constipation Take 1 capsule (100 mg total) by mouth 2 (two) times a day as needed for constipation for up to 10 days 20 capsule 025 2024 Active acetaminophen (TYLENOL) 500 mg tablet Take 2 tablets (1,000 mg total) by mouth every 6 (six) hours as needed for pain for up to 10 days 30 tablet /27/ 2025 Active docusate sodium (COLACE) 100 mg capsuleIndication s:constipation Take 1 capsule (100 mg total) by mouth 2 (two) times a day as needed for constipation for up to 10 days For constipation. 20 capsule 025 2024 Active eszopiclone (LUNESTA) 3 mg tablet Take 1 tablet (3 mg total) by mouth nightly 90 tablet 025 2024 Active phenazopyridine (PYRIDIUM) 200 mg tablet Take 1 tablet (200 mg total) by mouth 3 (three) times a day for 5 days 15 tablet 025 2024 Active docusate sodium (COLACE) 100 mg capsuleIndication s:constipation Take 1 capsule (100 mg total) by mouth 2 (two) times a day as needed for constipation for up to 5 days For constipation. 15 capsule 1 020 2024 Discontinued tamsulosin (FLOMAX) 0.4 mg extended release capsuleIndication s:BPH with urinary obstruction Take 1 capsule (0.4 mg total) by mouth 2 (two) times a day 180 capsule 3 024 2024 Discontinued(S top Taking at Discharge) testosterone 10 mg/0.5 gram /actuation gel in metered-dose pumpIndications:M laura Hypogonadism Place 40 mg on the skin daily 90 g 5 025 2024 Discontinued(T herapy completed) busPIRone (BUSPAR) 5 mg tabletIndications :Generalized Anxiety Disorder Take 1 tablet (5 mg total) by mouth 3 (three) times a day as needed (anxiety/panic attack) 30 tablet 2 025 2024 Discontinued(T herapy completed) eszopiclone (LUNESTA) 3 mg tablet Take 1 tablet (3 mg total) by mouth nightly 90 tablet 025 2024 Discontinued acetaminophen 500 mg capsule Take 2 capsules (1,000 mg total) by mouth every 6 (six) hours 30 tablet 025 2024 Discontinued ciprofloxacin (CIPRO) 500 mg tabletIndications :Prophylaxis, Surgical Take 1 tablet (500 mg total) by mouth once for 1 dose Please take prior to anna catheter removal 1 tablet 025 2024 HYDROcodone-aceta minophen (NORCO) 5-325 mg per tabletIndications :Pain Take 1 tablet by mouth every 6 (six) hours as needed for pain for up to 7 days 10 tablet 025 2024 Active Problems Problem Noted Date Diagnosed Date [...] 11/04/2023 Assessment & Plan (11/04/2023 10:57 AM HOMICIDE INVESTIGATOR): Pepcid 40 mg at bedtime Esophagram Dermatochalasis [...] time Neoplasm of uncertain behavior of skin 3 Overview (07/07/2023): 3mm papule w/ depressed center [...] 06/29/2023 Assessment & Plan (11/04/2023 10:56 AM HOMICIDE INVESTIGATOR): Pepcid 40 mg at bedtime Esophagram Neck [...] anxiety Assessment & Plan (11/24/2022 2:09 PM HOMICIDE INVESTIGATOR): Generally well controlled, though occasionally has episodes, [...] pain Assessment & Plan (11/24/2022 2:11 PM HOMICIDE INVESTIGATOR): Has joint pain in multiple sites; notes [...] (09/09/2022): Added automatically from request for surgery [id number] Seasonal allergic rhinitis due to pollen 022 Assessment & Plan (07/26/2022 10:58 AM CDT): Nasal saline spray (Simply saline, Little Remedies, Amanda, [place]) 2 second sprays or 2 squeezes into [...] Nasal saline spray (Simply saline, Little Remedies, [place], [place]) 2 second sprays or 2 squeezes into [...] 07/26/2022 Assessment & Plan (11/04/2023 10:56 AM HOMICIDE INVESTIGATOR): Pepcid 40 mg at bedtime Esophagram Laryngopharyngeal reflux discussed and Handout provided Assessment & Plan (07/26/2022 11:00 AM CDT): Call if no improvement for trial of Pepcid LPR discussed and Handout provided Dupuytren's contracture of left hand 11/17/2021 Overview (11/17/2021): Added automatically from request for surgery [id number] History of colonic polyps 03/11/2021 Overview (03/11/2021): Added automatically from request for surgery [id number] S/P cervical spinal fusion 02/03/2021 Assessment & [...] nodules Assessment & Plan (11/05/2020 9:46 AM HOMICIDE INVESTIGATOR): Seen on CTA for monitoring thoracic aortic aneurysm -continue to monitor, stable in size -no history of tobacco use, no pulmonary symptoms. BPH (benign prostatic hyperplasia) 06/19/2020 Overview (06/19/2020): Added automatically from request for surgery [id number] Assessment & Plan (06/19/2024 2:15 PM CDT): [...] b.i.d. Assessment & Plan (11/24/2022 2:09 PM HOMICIDE INVESTIGATOR): Stable, well controlled; good flow with urination; [...] daily Assessment & Plan (11/24/2022 2:07 PM HOMICIDE INVESTIGATOR): Stable, well controlled; blood pressure at target [...] medicine Assessment & Plan (11/09/2021 8:25 PM HOMICIDE INVESTIGATOR): Blood pressure at target today, no signs or symptoms of hypotention Continue lisinopril 2.5 mg daily Assessment & Plan (05/06/2021 10:54 AM CDT): Stable, well controlled, continue lisinopril 2.5 mg Assessment & Plan (11/05/2020 9:43 AM HOMICIDE INVESTIGATOR): Well controlled, bp at target today though [...] dose. Assessment & Plan (11/05/2020 9:42 AM HOMICIDE INVESTIGATOR): Well controlled with Lexapro 20 mg; will [...] diet Assessment & Plan (11/24/2022 2:07 PM HOMICIDE INVESTIGATOR): Stable, well controlled; continue atorvastatin 20 mg [...] therapy Assessment & Plan (11/05/2020 9:42 AM HOMICIDE INVESTIGATOR): Stable, tolearting statin therapy well -continue atorvastatin [...] PM CDT): Stable, well controlled; follows with [facility] Continue to monitor for any changes [...] recommendations Assessment & Plan (11/05/2020 9:41 AM HOMICIDE INVESTIGATOR): Stable, following with urology for management -patient on tamsulosin, and sildenafil for LUTS -on testosterone for hypogonadism Obstructive sleep apnea (adult) (pediatric) 04/02 Assessment & Plan (12/17/2024 11:00 AM CDT): Diagnosed many years ago and intolerant of CPAP, uses razor for the head of the bed. No symptoms currently. Resolved Problems Problem Noted Date Diagnosed Date Resolved Date Duodenitis 09/22/2023 12/13/2024 Pneumonia 07/07/2023 12/13/2024 Hypertrophy of nasal turbinates 07/07/2023 12/13/2024 History of colonoscopy with polypectomy 03/11/2021 12/13/2024 Encounters Date Type Department Care Team Description 04/26/2025 Telephone [facility] [address] [address] Keagan Saldana MD Symptom Based Call 04/26/2025 [facility] ED Outreach [address] [address] Gillian Lee MA 04/24/2025 10:33 PM CDT - 04/25/2025 3:[address] [facility] Emergency Department [address] [place] [address] Bob Ríos MD Abdominal pain (Primary Dx); Urinary problem in male Discharge Disposition: Discharge to home or self care 04/19/2025 [facility] IP Outreach [address] [address] Barb Colon LPN 04/18/2025 Orders Only [facility] Urology [address] [facility] Office Building [address] [place] [address] Elmer Boyce MD Prostate cancer (HCC) (Primary Dx) 04/17/2025 8:30 AM CDT - 04/17/2025 12:[address] [facility] Operating Room [address] [place] [address] Elmer Boyce MD XI PROSTATECTOMY - LAPAROSCOPIC ROBOTIC ASSISTED 04/17/2025 8:30 AM CDT Anesthesia Event [facility] Operating Room [address] [place] [address] Deisy Etienne MD Kraenzle, [place] 04/17/2025 6:31 AM CDT - 04/18/2025 12:58 PM CDT Hospital Encounter [address] [address] Elmer Boyce MD Prostate cancer (HCC) Discharge Disposition: Discharge to home or self care 04/03/2025 10:30 AM CDT Pre-Admission Testing [facility] for Preoperative [facility] ([facility]) [address] [place] [address] Preoperative testing (Primary Dx); Urination frequency 02/15/2025 Results Follow-Up [facility] Urology [facility] Office [facility] [address] [place] [address] Elmer Boyce MD PET/CT Prostate Cancer PSMA Skull to Thigh 02/14/2025 12:39 PM CDT - 02/14/2025 11:59 PM CDT Hospital Encounter [facility] - PET [address] [facility] Floor 8 [place] [address] Discharge Disposition: Discharge to home or self care 02/14/2025 12:38 PM CDT - 02/14/2025 11:59 PM CDT Hospital Encounter [facility] - PET [address] [facility] Floor [address] [place] [address] Prostate cancer (HCC) Discharge Disposition: Discharge to home or self care 02/07/2025 10:35 AM CDT Ancillary Procedure [facility] Medical Group Imaging at [address] [address] Acute cough 02/07/2025 Results Follow-Up [facility] Medical Group Convenient Care at [address] [address] Feliz Floyd NP XR Chest Pa Lateral 2 Views 02/04/2025 Telephone [facility] Urology [address] [address] Medical Office Building 1 [place] [address] Luther Cameron MD 02/02/2025 11:00 AM CDT Office Visit [facility]venient Care at [address] [address] Radha Walton NP Acute cough (Primary Dx) 02/01/2025 10:00 AM CDT Consult [facility] Radiation Oncology [address] [place] [address] Sony Marina MD PhD Prostate cancer (HCC) (Primary Dx); Malignant neoplasm of prostate (HCC) 02/01/2025 Orders Only [facility] Urology [facility] Office Building [address] [place] [address] Elmer Boyce MD Prostate cancer (HCC) (Primary Dx) 02/01/2025 Orders Only [facility] Urology [address] [place] [address] Medical Office Building [address] [place] [address] Elmer Boyce MD 02/01/2025 Telephone [facility] Surgery [address] [place] [address] Gwen Kay EMT 01/31/2025 10:20 AM CDT Office Visit [facility] Urology [address] [place] [address] Medical Office Building [address] [place] [address] Elmer Boyce MD Prostate cancer (HCC) (Primary Dx) from Last 3 Months Immunizations Immunization Administration Dates Next Due Anthrax 12/11/2009,06/12/2009,01/09/2009 H1N1 Inj 09/04/2009 Hep A / Hep B 02/15/2006,01/06/2005,10/23/2004 Hep A, Adult 12/20/2000 Influenza, Quadrivalent, Hig h Dose, Preservative Free, Intrr 06/17/2023,07/21/2022,08/13/2021 Influenza, Quadrivalent, Spl it, Preservative Free, Intramuscular 07/24/2020,10/25/2019,07/25/2018,07/25 Influenza, Split 06/12/2009,09/12/2008, 7 Influenza, Trivalent, Preser vative Free, Intramuscular 07/30/2016,07/18/2015,06/22/2011,06/12 Influenza, Unspecified 07/13/2022,2020,10/03/2016,08/17 Influenza, Whole 09/13/2006, 5,07/12/2002,08/10 OPV 09/12/2008 Pneumococcal Conjugate PCV 13 02/03/2021 Pneumococcal Conjugate Pcv20 12/29/2022,05/07/20 22 Smallpox 12/06/2002,11/30/2002 Td, adsorbed 04/20/2002 Tdap 11/05/2020,10/03/2016,04/20/2016 Tetanus toxoid, adsorbed 12/21/1989 Typhoid H-P SQ/ID 07/10/1998 Typhoid Inactivated 10/24/2008 Yellow Fever 10/24/2008,07/10/1998 ZOSTER LIVE 01/05/2016 ZOSTER Recombinant 02/03/2021,07/24/2020 Surgical History Surgery Date Site/Laterality Comments KNEE ARTHROSCOPY 10/03/2006 - 10/02/2007 Right NASAL TURBINATE REDUCTION 10/03/2007 - 10/02/2008 COLONOSCOPY 06/16/2021 REFRACTIVE SURGERY 10/03/2017 - 10/02/2018 Bilateral LASIK SPINAL FUSION 10/03/2013 - 10/02/2014 C4-T1 ACDF CARDIAC CATHETERIZATION 11/13/2008 CYSTOSCOPY 07/24/2020 PROSTATE SURGERY 07/24/2020 UroLift PROSTATE SURGERY 01/30/2021 Biopsy DUPUYTREN CONTRACTURE RELEASE 11/27/2021 Left Excision left hand BIOPSY 11/27/2021 Left Biopsy nailbed left long finger TRANSURETHRAL RESECTION OF PROSTATE 2014 - 04/01/2015 HERNIA REPAIR 10/03/1985 - 10/02/1986 Left KNEE ARTHROSCOPY W/ LATERAL RELEASE Apri l 2006 right knee LASIK 2018 FOOT SURGERY 09/02/2023 Right ARTHRODESIS TOE, right big toe fusion ESOPHAGOGASTRODUODENOSCOPY Medical History Medical History Date Comments Osteoarthritis Thoracic aortic aneurysm without rupture 019 4.5 cm Hypogonadism in male Major depressive disorder PONV (postoperative nausea and vomiting) Prostate cancer (HCC) Covid-19 LIMA (obstructive sleep apnea) HLD (hyperlipidemia) SNHL (sensorineural hearing loss) Adenomatous colon polyp H. pylori infection GERD (gastroesophageal reflux disease) GARRETT (generalized anxiety disorder) AI (aortic insufficiency) Pulmonary nodules Hypotestosteronism History of colonoscopy with polypectomy 03/11/20 21 Heart murmur History of hypertension Elevated PSA Family History Medical History Relation Name Comments Cancer Brother Eric prostate cancer Heart attack Father Natanael Heart disease Father Natanael Cancer Mother Dina lung cancer No Known Problems Sister Relation Name Status Comments Brother Eric Alive Father Natanael (Age 64) Mother Dnia (Age 86) Sister Alive Social History Tobacco Use Types Packs/Day Years Used Date Smoking Tobacco: Never Cigarettes Smokeless Tobacco: Current Chew Tobacco Cessation:Ready to Q uit: Yes; Counseling Given: Not Answered Alcohol Use Standard Drinks/Week Comments Yes 2 [...] Orientation Straight 03/11/2021 9: 12 AM CDT Obstetrics History Last Filed Vital Signs Vital Sign Reading [...] Mass Index 26.85 04/24/2025 7:57 PM CDT Plan of Treatment Health Maintenance Due Date Last Done Comments Covid-19 Vaccine (2023-2 5 season) 2024 07/21/2022, 08/13/2021, 01/16/2021, Additional history exists Influenza Vaccine (#1) 2025 , 07/21/2022, 07/13/2022, Additional history exists Well Visit 65+ 06/19/2025 06/19/2024, 06/17/2023 Depression Screening 12/17/2025 12/17/2024, 06/19/2024, 01/11/2024, Additional history exists Fall Risk Assessment 04/18/2026 04/18/2025, 02/01/2025, 06/19/2024, Additional history exists Prostate Cancer Screening-PSA 11/26/2026, 04/19/2024, 10/26/2023, Additional history exists Colon Cancer Screening-Colonoscopy 08/16/2029 08/16/2024, 06/16/2021 DTaP/Tdap/Td Vaccine (4 - Td or Tdap) 11/05/2030 11/05/2020, 10/03/2016, 04/20/2016, Additional history exists Hepatitis B Screening Completed 02/15/2006 , 01/06/2005, 10/23/2004 Hepatitis C Screening Completed 11/05/2020 Zoster Vaccine Completed 02/03/2021, 07/04, 01/05/2016 Pneumococcal vaccine 65+ Completed 023, 05/07/2022, 02/03/2021 Colon Cancer Screening-CT Colonography Discontinued 08/16/2024, 06/16/2021 Colon Cancer Screening-DNA Stool Discontinued 08/16/2024, 07/20/2024, 06/16/2021 Colon Cancer Screening-FIT Discontinued 08/16, 07/20/2024, 06/16/2021 Colon Cancer Screening-Sigmoidoscopy Discontinued 08/16/2024, 06/16/2021 Medical Devices Implanted Type Area Lisw Device Identifier Shelf Expiration Date Model / Serial / Lot Plate Plate Cervical-Th oracic Spine Description:Plate x 5 Screw Screw Cervical-Th oracic Spine Description:Screw x 10 [employer] [id number] Urolift Implant Urological - [id number] Implanted:Qty: 3 on 07/24/2020 by Luther Cameron MD at [facility] N/A: Urethra [employer] 09/02/2021 [id number] / / [id number] [employer] Ortholoc 47mm 3di Fusion Low Profile Compression Slot Foot Right [id number] - [id number] Implanted:Qty: 1 on 09/02/2023 by Marcello Storey Jr., MD at [facility] Right: First Toe [employer] [id number] / / [employer] Ortholoc 3di 3.5mm 38mm Low Profile Self Tapping Threaded [id number] - [id number] Implanted:Qty: 1 on 09/02/2023 by Marcello Storey Jr., MD at [facility] Right: First Toe [employer] [id number] / / [employer] Ortholoc 3.5mm 2.8mm 16mm Lock On [place] Polyaxial Self Tap Midfoot [id number] - [id number] Implanted:Qty: 2 on 09/02/2023 by Marcello Storey Jr., MD at [facility] Right: First Toe [employer] [id number] / / [employer] Ortholoc 3.5mm 2.5mm 26mm Low Profile Head Self Tap Midfoot [id number] - [id number] Implanted:Qty: 1 on 09/02/2023 by Marcello Storey Jr., MD at [facility] Right: First Toe [employer] [id number] / / [employer] Ortholoc 3.5mm 2.8mm 18mm Lock On [place] Polyaxial Self Tap Midfoot [id number] - [id number] Implanted:Qty: 1 on 09/02/2023 by Marcello Storey Jr., MD at [facility] Right: First Toe [employer] [id number] / / [employer] Ortholoc 3.5mm 2.5mm 20mm Low Profile Head Self Tap Midfoot [id number] - [id number] Implanted:Qty: 1 on 09/02/2023 by Marcello Storey Jr., MD at [facility] Right: First Toe [employer] [id number] / / Procedures Procedure Name Priority Date/Time Associated Diagnosis Comments URINALYSIS, MICROSCOPIC ONLY STAT 04/25/2025 1:51 AM CDT URINE CULTURE STAT 04/25/2025 1:51 AM CDT URINALYSIS AND REFLEX TO MICROSCOPIC AND CULTURE STAT 04/25/2025 1:51 AM CDT EGFR STAT 04/24/2025 11:54 PM CDT DIFFERENTIAL AUTO STAT 04/24/2025 11: 54 PM CDT PROTIME-INR STAT 04/24/2025 11:54 PM CDT LIPASE STAT 04/24/2025 11:54 PM CDT COMPREHENSIVE METABOLIC PANEL STAT 04/24/2025 11:54 PM CDT CBC WITH AUTO DIFFERENTIAL STAT 04/24/2025 11:54 PM CDT EGFR Timed 04/17/2025 11:20 PM CDT BASIC METABOLIC PANEL Timed 04/17/2025 11:20 PM CDT CBC WITHOUT DIFFERENTIAL Timed 04/17/2025 11:20 PM CDT POCT GLUCOSE DEVICE Routine 04/17/2025 2 :59 PM CDT SURGICAL PATHOLOGY Routine 04/17/2025 12 :13 PM CDT Prostate cancer (HCC) MD AN PROCEDURE PLACEHOLDER Routine 04/17/2025 8:59 AM CDT MD AN ELECTIVE ENDOTRACHEAL AIRWAY Routine 04/17/2025 8:59 AM CDT XI ROBOTIC PELVIC LYMPH NODE 04/17/2025 8:30 AM CDT Prostate cancer (HCC) XI PROSTATECTOMY - LAPAROSCOPIC ROBOTIC ASSISTED 04/17/2025 8:30 AM CDT Prostate cancer (HCC) POCT GLUCOSE DEVICE Routine 04/17/2025 8 :18 AM CDT B CHECK SAMPLE STAT 04/17/2025 7:10 AM CDT EGFR Routine 04/03/2025 12:12 PM CDT Preoperative testing DIFFERENTIAL AUTO Routine 04/03/2025 12: 12 PM CDT Preoperative testing BASIC METABOLIC PANEL Routine 04/03/2025 12:12 PM CDT Preoperative testing CBC WITH AUTO DIFFERENTIAL Routine 04/03/2025 12:12 PM CDT Preoperative testing TYPE AND SCREEN 14 DAY Routine 04/03/2025 12:12 PM CDT Preoperative testing URINE CULTURE Routine 04/03/2025 12:12 PM CDT Preoperative testing Urination frequency ECG 12-LEAD Routine 04/03/2025 11:57 AM CDT Preoperative testing PET/CT PROSTATE CANCER PSMA SKULL TO THIGH Schedule Routine, Read Routine (OP Routine) 02/14/2025 2:56 PM CDT Prostate cancer (HCC) XR CHEST PA LATERAL 2 VIEWS Schedule MIGUEL, Read MIGUEL (Appt Today, Awaiting Results) 02/07/2025 10:45 AM CDT Acute cough PSA DIAGNOSTIC Routine 11/26/2024 11:57 AM HOMICIDE INVESTIGATOR Hypogonadism in male Prostate cancer (HCC) COLONOSCOPY 08/16/2024 11:00 AM HOMICIDE INVESTIGATOR HEPATITIS C ANTIBODY Routine 11/05/2020 9:30 AM HOMICIDE INVESTIGATOR Encounter to establish care from Last 3 Months or Most Recently Relevant to Health Maintenance Results * (ABNORMAL) Urinalysis reflex to microscopic and culture Urine (04/25/2025 1:51 AM CDT) Color, ur Yellow Yellow Clarity, ur Clear Clear [facility] Specific gravity, ur 1.022 1.003 - 1.030 [facility] pH, urine 6.[address] [facility] Comment: Interpretive Data U rine pH is affected by diet, medications, systemic acid-base disturbances, and renal tubular function. pH may affect urinary stone formation. For example, urine pH below 6.0 may help reduce the tendency for calcium phosphate stones and pH greater than 6.0 may reduce the tendency for uric acid stone formation. Source: [place] Current Interpretive Data was last revised on 2017 Protein, ur ql Negative Negative [facility] Glucose, ur ql Negative Negative [facility] Ketones, ur Negative Negative [facility] Bilirubin, ur Negative Negative [facility] Blood, ur 3+(A) Negative [facility] Urobilinogen, ur <2.0 <2.0 mg/dL [facility] Nitrite, ur Negative Negative [facility] Leukocyte esterase, ur 1+(A) Negative [facility] UA reflex comment Reflex to microscopic UA will be performed. [facility] Urine 04/25/2025 1:51 AM CDT 04/25/2025 1:56 AM CDT Bay Rawls MD LAB MICROBIOLOGY - GENE RAL ORDERABLES Final Result Performing Organization Address City/[facility] Co de Phone Number [facility] [place] [address] * (ABNORMAL) Urinalysis, microscopic only (04/25/2025 1:51 AM CDT) WBC, ur 21-50(A) 0 - 5 /HPF RBC, ur 6-10(A) 0 - 2 /HPF [facility] Epithelial cells, squamous, ur 1-5 0 - 5 /HPF [facility] Epithelial cells, transitional, ur 1-5 0 - 0 /HPF [facility] Bacteria, ur Trace(A) [facility] Mucous, ur Present(A) [facility] Hyaline casts, ur 1-5 0 - 10 /LPF [facility] Culture Reflex Comment Reflex to urine culture will be performed. [facility] Urine 04/25/2025 1:51 AM CDT 04/25/2025 1:56 AM CDT Bay Rawls MD LAB URINE ORDERABLES Fi nal Result Performing Organization Address [facility] Co de Phone Number [facility] [place] [address] * Urine culture Urine (04/25/2025 1:51 AM CDT) Report Final Report: No growth Urine 04/25/2025 1:51 AM CDT 04/25/2025 4:07 AM CDT Narrative [facility] - 04/26/2025 6:55 AM CDT Urine culture reflexed based upon urinalysis results. Testing performed by [facility] Microbiology Laboratory ([phone]) Bay Rawls MD LAB MICROBIOLOGY - GENE RAL ORDERABLES Final Result Performing Organization Address [facility] Co de Phone Number [facility] [place] [address] * (ABNORMAL) eGFR (04/24/2025 11:54 PM CDT) eGFR 56(L) >=60 mL/min/1. 73 m2 Comment: [...] ORDERABLES Fi nal Result Performing Organization Address City/[facility]/ZIP Co de Phone Number [facility] [place] [address] * (ABNORMAL) Differential, auto (04/24/2025 11:54 PM CDT) Neutrophil abs 12.16(H) 1.50 - 6.50 K/cumm Imm gran abs 0.07 0.00 - 0.10 K/cumm [facility] Lymphocyte abs 1.06 0.80 - 3.30 K/cumm [facility] Monocyte abs 0.73 0.20 - 0.80 K/cumm [facility] Eosinophil abs 0.46 0.00 - 0.50 K/cumm [facility] Basophil abs 0.04 0.00 - 0.10 K/cumm [facility] Neutrophil pct 83.7 % [facility] Comment: Interpretive Data Percent cell count reference ranges are not reported, since discordance with absolute values may lead to misinterpretation of CBC data. Current Interpretive Data was last revised on 2018. Imm gran pct 0.5 % [facility] Comment: Interpretive Data Percent cell count reference ranges are not reported, since discordance with absolute values may lead to misinterpretation of CBC data. Current Interpretive Data was last revised on 2018. Lymphocyte pct 7.3 % [facility] Comment: Interpretive Data Percent cell count reference ranges are not reported, since discordance with absolute values may lead to misinterpretation of CBC data. Current Interpretive Data was last revised on 2018. Monocyte pct 5.0 % [facility] Comment: Interpretive Data Percent cell count reference ranges are not reported, since discordance with absolute values may lead to misinterpretation of CBC data. Current Interpretive Data was last revised on 2018. Eosinophil pct 3.2 % [facility] Comment: Interpretive Data Percent cell count reference ranges are not reported, since discordance with absolute values may lead to misinterpretation of CBC data. Current Interpretive Data was last revised on 2018. Basophil pct 0.3 % [facility] Comment: Interpretive Data Percent cell count reference ranges are not reported, since discordance with absolute values may lead to misinterpretation of CBC data. Current Interpretive Data was last revised on 2018. Blood 04/24/2025 11:5 4 PM CDT 04/25/2025 12:06 AM CDT Bay Rawls MD LAB BLOOD ORDERABLES Fi nal Result Performing Organization Address [facility] de Phone Number [facility] [place] [address] * (ABNORMAL) CBC with auto differential (04/24/2025 11:54 PM CDT) [facility] WBC 14.52(H) 3.80 - 9.90 K/cumm Hgb 12.4(L) 13.0 - 17.5 g/dL [facility] Hct 36.7(L) 38.9 - 50.3 % [facility] Plt 264 150 - 400 K/cumm [facility] MPV 10.6 9.1 - 12.[address] [facility] RBC 4.04(L) 4.30 - 5.80 M/cumm [facility] MCV 90.8 81.3 - 96.[address] [facility] MCH 30.7 27.1 - 33.[address] [facility] MCHC 33.8 32.3 - 35.7 g/dL [facility] RDW CV 13.6 11.1 - 14.9 % [facility] RDW SD 44.1 35.7 - 48.[address] [facility] NRBC abs 0.00 0.00 - 0.01 K/cumm [facility] Blood 04/24/2025 11:5 4 PM CDT 04/25/2025 12:06 AM CDT Bay Rawls MD LAB BLOOD ORDERABLES Fi nal Result Performing Organization Address [facility] Co de Phone Number [facility] [place] [address] * Protime-INR (04/24/2025 11:54 PM CDT) [facility] PT 12.5 9.7 - 13.0 sec INR 1.15 0.90 - 1.[address] [facility] Comment: Interpretive data Oral anticoagulant therapeutic ranges: Venous thromboembolism prophylaxis or treatment: 2.0-3.0 CARDIOLOGY Standard range: 2.0-3.0 High-intensity range: 2.5-3.5 Refer to indication-specific guidelines for appropriate target ranges for prosthetic heart valve replacement. Current interpretive data was last revised on 2019. Blood 04/24/2025 11:5 4 PM CDT 04/25/2025 12:16 AM CDT Bay Rawls MD LAB BLOOD ORDERABLES Fi nal Result Performing Organization Address City/[facility]/ZIP Co de Phone Number [facility] [place] [address] * (ABNORMAL) Lipase (04/24/2025 11:54 PM CDT) Pathologist [facility] Lipase 9(L) 10 - 99 Units/L Blood 04/24/2025 11:5 4 PM CDT 04/25/2025 12:07 AM CDT Bay Rawls MD LAB BLOOD ORDERABLES Fi nal Result Performing Organization Address City/[facility] de Phone Number [facility] [place] [address] * (ABNORMAL) Comprehensive metabolic panel (04/24/2025 11:54 PM CDT) [facility] Sodium 137 135 - 145 mmol/L Potassium, pl 4.2 3.3 - 4.9 mmol/L [facility] Chloride 101 97 - 110 mmol/L [facility] CO2 27 22 - 32 mmol/L [facility] Anion gap 9 2 - 15 mmol/L [facility] BUN 20 6 - 25 mg/dL [facility] Creatinine 1.36(H) 0.80 - 1.30 mg/dL [facility] Glucose 127 70 - 199 mg/dL [facility] Comment: Interpretive Data Fasting glucose >/= 126 [...] classification and Diagnosis of Diabetes Diabetes Care 202; 46: S19-S40. Current interpretive data was last revised 2022. Calcium 9.4 8.5 - 10.3 mg/dL [facility] Bilirubin, total 1.2 0.1 - 1.2 mg/dL [facility] Protein, pl 7.0 6.5 - 8.5 g/dL [facility] Albumin 4.0 3.5 - 5.0 g/dL [facility] Alk phos 112 40 - 130 Units/L [facility] ALT 19 7 - 55 Units/L [facility] AST 23 10 - 50 Units/L [facility] Blood 04/24/2025 11:5 4 PM CDT 04/25/2025 12:07 AM CDT Bay Rawls MD LAB BLOOD ORDERABLES Fi nal Result [facility] [place] [address] * eGFR (04/17/2025 11:20 PM CDT) eGFR 64 >=60 mL/min/1. 73 m2 Comment: Interpretive Data [...] interpretive data was last reviewed 2021. Blood 04/17/2025 11:2 0 PM CDT 04/18/2025 12:16 AM CDT Elmer Boyce MD LAB BLOOD ORDERABLES Final Result Performing Organization Address City/[facility]/ZIP Co de Phone Number [facility] [place] [address] * (ABNORMAL) CBC without differential (04/17/2025 11:20 PM CDT) Pathologist [facility] WBC 10.70(H) 3.80 - 9.90 K/cumm Hgb 11.8(L) 13.0 - 17.5 g/dL [facility] Hct 33.6(L) 38.9 - 50.3 % [facility] Plt 194 150 - 400 K/cumm [facility] MPV 11.1 9.1 - 12.[address] [facility] RBC 3.83(L) 4.30 - 5.80 M/cumm [facility] MCV 87.7 81.3 - 96.[address] [facility] MCH 30.8 27.1 - 33.[address] [facility] MCHC 35.1 32.3 - 35.7 g/dL [facility] RDW CV 13.0 11.1 - 14.9 % [facility] RDW SD 41.1 35.7 - 48.[address] [facility] NRBC abs 0.00 0.00 - 0.01 K/cumm [facility] Blood 04/17/2025 11:2 0 PM CDT 04/18/2025 12:17 AM CDT Elmer Boyce MD LAB BLOOD ORDERABLES Final Result [facility] [place] [address] * Basic metabolic panel (04/17/2025 11:20 PM CDT) Sodium 137 135 - 145 mmol/L Potassium, pl 4.3 3.3 - 4.9 mmol/L [facility] Chloride 97 97 - 110 mmol/L [facility] CO2 28 22 - 32 mmol/L [facility] Anion gap 12 2 - 15 mmol/L [facility] BUN 21 6 - 25 mg/dL [facility] Creatinine 1.23 0.80 - 1.30 mg/dL [facility] Glucose 147 70 - 199 mg/dL [facility] Comment: Interpretive Data Fasting glucose >/= 126 [...] interpretive data was last revised 2022. Calcium 8.9 8.5 - 10.3 mg/dL [facility] Blood 04/17/2025 11:2 0 PM CDT 04/18/2025 12:16 AM CDT us Elmer Boyce MD LAB BLOOD ORDERABLES Final Result Performing Organization Address City/[facility]/ZIP Co de Phone Number [facility] [place] [address] * POCT glucose (04/17/2025 2:59 PM CDT) Glucose, POC 136 70 - 199 mg/dL Blood 04/17/2025 2:59 PM CDT 04/17/2025 2:59 PM CDT Elmer Boyce MD LAB POCT ORDERABLES - DEVICE Final Result Performing Organization Address [facility]/ZIP Co de Phone Number [facility] [place] [address] * Surgical pathology (04/17/2025 12:13 PM CDT) Tissue (Prostate, Prostatectomy) 04/17/2025 12:13 PM CDT Tissue specimen (specimen) (Lymph node, dissection/region al resection) 04/17/2025 12:13 PM CDT Narrative PATHOLOGY [facility] - 04/23/2025 12:03 PM CDT EPIC results best viewed via link to PDF [facility] [place] [address] Note to Patients: This report may contain a detailed description of human tissue sent by a health care provider to the laboratory for pathologic evaluation. The content of this report is essential for diagnosis and may provide important critical findings. This information may be unfamiliar to patients to review without a medical professional present. It is advised that the patient review this report in the presence of a health care provider who can answer questions and explain the details. SURGICAL PATHOLOGY REPORT FINAL Patient Name: SARAH MARTINEZ Gender: M : 1955 (Age: 69) Address: [address] [place], [place] [id number] Hospital #: [id number] Taken:04/17/2025 Received:04/17/2025 Reported: 04/23/2025 Patient Type: [facility] Inpatient Service: Surgery Location: [place] [address] Physician(s): Margarita Winn M.D. Diagnosis: A. 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 Lymph node, bilateral pelvic lymph nodes, dissection - No evidence of malignancy in five lymph nodes (0/5) donta/04/22/2025 09:15 By this signature, I attest that the above diagnosis is based upon my personal examination of the slides(and/or other material indicated in the diagnosis). Radha Lerma M.D., PH.D. Report Electronically Reviewed and Signed Out By Radha Lerma M.D., PH.D. 04/23/2025 12:03:32 Vicky Lovelace M.D. History: The patient is a 69-year-old male with a history of prostate cancer (grade group four). Operative procedure: Prostatectomy. Specimen(s) Received: A: Prostate B: Bilateral pelvic lymph nodes Gross Description: Received in two formalin jars labeled with the patient's identifiers. A. Received in formalin labeled with the patient's identifiers and prostate is a prostatectomy specimen including 70.4 g prostate (4.9 cm right to left, four point 5 cm anterior posterior, and four point 9 cm apex to base), bilateral seminal vesicles (2.5 x 1.2 x 0.3 cm each) and bilateral vas deferens (4.6 cm by 0.3 x 0.3 cm right and 2.6 by 0.3 x 0.3 cm left) the specimen is inked right, black; left-blue; anterior-yellow. Labeled A1-right vas deferens margins and seminal vesicle; the choana sectioned into eight sections. There are 2 biopsy clips, one is in the right posterior and the others in the middle of the gland. There is no definitive focal mass A1 - right vas defernes and seminal vesicle; A2-left vas deferens margins and seminal vesicle; A3-right apex margins radially sectioned; A 4-left apex margins radially sectioned; A 5-right base margin radially sectioned; a six-left base margin radially sectioned.[id number] posterior, apex to base (A9 location of biopsy clip); J76-E96-ztht posterior, apex to base; S28-21-ywqxa anterior base (slice 1), middle slice three, apex slice eight); A26-28 left anterior base (one), middle (three), apex (one). Jar two. B. Received in formalin labeled with the patient's identifiers and bilateral pelvic lymph nodes contains aggregate of adipose tissue measuring 5.5 x 6.1 x 1.5 cm. With three putative lymph nodes ranging from 2.5 225.9 cm. Labeled B1-B2 one lymph node bisected;B3-B4-one lymph node in two cassettes; B5-B 6-one lymph node in two cassettes; I5-J5-pkyqmicww fat. Jar 0. [facility]04/18/2025 14:35 Gross Resident:Vicky Lovelace M.D. PA(s): Margarita Acosta M.D. Nila Palaniappan, M.D. CANCER CASE SUMMARY FOR CARCINOMA OF THE PROSTATE GLAND Procedure: Radical prostatectomy Prostate size: Weight: 70.4g Size: 4.9 x 4.5 x 4.9 cm Histologic Type: Acinar adenocarcinoma, conventional (usual) Histologic Grade: Grade Group and Grampian Score: Grade group 2 (Ivan Score 3+4=7) Percentage of Pattern 4: 11-20% Intraductal Carcinoma (IDC): Intraductal carcinoma not identifed Cribriform Glands: Present Tumor Quantitation: 6 - 10% Extraprostatic Extension: Present, focal Location of Extraprostatic Extension: Left posterior Urinary Bladder Neck Invasion: Not identified Seminal Vesicle Invasion: Not identified Lymphatic and/or Vascular Invasion: Not identified Margins: Uninvolved by invasive carcinoma Treatment Effect: No known presurgical therapy Perineural Invasion: Present Regional Lymph Nodes: Regional lymph nodes present All regional lymph nodes negative for tumor Number of Lymph Nodes with Tumor Number of Lymph Nodes with Tumor: Exact number: 0 Number of lymph nodes examined Number of lymph nodes examined: Exact number: 5 Pathologic Stage Classification (pTNM, AJCC 8th Edition): Primary tumor (pT): pT3a: Extraprostatic extension (unilateral or bilateral) or microscopic invasion of bladder neck Regional Lymph Nodes (pN): pN0: No positive regional nodes The pathologic stage assigned here should be regarded as provisional and may change after integration of clinical data not provided with this specimen. CAP VERSION: Prostate 4.3.0.0 By this signature, I attest that the above diagnosis is based upon my personal examination of the slides(and/or other material). Addenda/Procedures The performance characteristics of some immunohistochemical stains, fluorescence in-situ hybridization tests and immunophenotyping by flow cytometry cited in this report (if any) were determined by the Surgical Pathology and Flow Cytometry Departments at [facility] as part of an ongoing quality control program and in compliance with federally mandated regulations drawn from the Clinical Laboratory Improvement Act of 1988 (CLIA '88). Some of these tests rely on the use of analyte specific reagents and are subject to specific labeling requirements by the US Food and Drug Administration. Such diagnostic tests may only be performed in a facility that is certified by the Department of Health and Human Services as a high complexity laboratory under CLIA '88. The FDA has determined that such clearance or approval is not necessary. This test is used for clinical purposes. It should not be regarded as investigational or for research. Nevertheless, federal rules concerning the medical use of analyte specific reagents require that the following disclaimer be attached to the report: This test was developed and its performance characteristics determined by the Surgical Pathology and Flow Cytometry Departments of [facility]. It has not been cleared or approved by the U. S. Food and Drug Administration. IMAGES AND SCANNED DOCUMENTS, IF INCLUDED, ONLY VIEWABLE IN PDF VERSION OF REPORT us Elmer Boyce MD LAB PATHOLOGY ORDERAB LES Final Result PATHOLOGY [facility] 3rd Floor [place], [place] [phone] * MD AN ELECTIVE ENDOTRACHEAL AIRWAY, MD AN PROCEDURE PLACEHOLDER (04/17/2025 8:59 AM CDT) Narrative Courtney Fowler CRNA - 04/17/2025 8:59 AM CDT Courtney Fowler CRNA 04/17/2025 9:00 AM Airway Patient location: OR Urgency: elective Date/time: 04/17/2025 8:38 AM Indications for airway management: anesthesia and airway protection Difficult airway: no Staff: Supervising provider: Deisy Etienne MD Emergent airway documentation: Risks and benefits discussed: yes Consent obtained: yes Consent given by: patient Airway prep: Preoxygenated: yes Patient position: sniffing MILS maintained throughout: yes Mask difficulty assessment: 1 - vent by mask Spontaneous ventilation during airway: absent Sedation level during airway: GA Final airway details: Final airway type: endotracheal airway Tube type: ETT Cuffed: yes Technique used for successful ETT placement: direct laryngoscopy Devices/Methods used in placement: intubating stylet Insertion site: oral Blade type: Reza Blade size: 2 Cormack-Lehane (direct): grade I - full view of glottis Cuff inflated with: air Placement verified by: auscultation Airway secured with: silk tape Number of attempts: 1 Additional comments: Critical care fellow performed intubation. Atraumatic intubation; dentition unchanged following intubation. us Deisy Etienne MD ANESTHESIA ORDERABLES F inal Result * POCT glucose (04/17/2025 8:18 AM CDT) Glucose, POC 103 70 - 199 mg/dL Blood 04/17/2025 8:18 AM CDT 04/17/2025 8:18 AM CDT Elmer Boyce MD LAB POCT ORDERABLES - DEVICE Final Result Performing Organization Address [facility] de Phone Number [facility] [place] [address] * Check Sample (04/17/2025 7:10 AM CDT) ABO Rh A Positive [facility] OTHER 04/17/2025 7:10 AM CDT 04/17/2025 7:21 AM CDT Elmer Boyce MD LAB BLOOD ORDERABLES Final Result Performing Organization Address [facility] de Phone Number [facility] [place] [address] BJ * TYPE AND SCREEN 14 DAY (04/03/2025 12:12 PM CDT) ABO Rh A Positive Virgilio, indirect Negative [facility] Blood 04/03/2025 12:1 2 PM CDT 04/03/2025 1:33 PM CDT Narrative [facility] - 04/03/2025 2:27 PM CDT Is this test being ordered in advance for a procedure?->Yes Expected date of procedure:->04/17/25 Has the patient been transfused in the past 3 months?->No Kalani Wagner [employer]TLEC[employer]IMMER LAB BLOOD BANK TEST ORD ERABLES Final Result Performing Organization Address [facility] Co de Phone Number [facility] [place] [address] * eGFR (04/03/2025 12:12 PM CDT) eGFR 73 >=60 mL/min/1. 73 m2 Comment: Interpretive Data [...] interpretive data was last reviewed 2021. Blood 04/03/2025 12:1 2 PM CDT 04/03/2025 1:37 PM CDT Kalani Wagner [employer] LAB BLOOD ORDERABLES Fi nal Result Performing Organization Address [facility]/ZIP Co de Phone Number [facility] [place] [address] * Differential, auto (04/03/2025 12:12 PM CDT) Neutrophil abs 6.16 1.50 - 6.50 K/cumm Imm gran abs 0.03 0.00 - 0.10 K/cumm [facility] Lymphocyte abs 1.77 0.80 - 3.30 K/cumm [facility] Monocyte abs 0.58 0.20 - 0.80 K/cumm [facility] Eosinophil abs 0.26 0.00 - 0.50 K/cumm [facility] Basophil abs 0.03 0.00 - 0.10 K/cumm [facility] Neutrophil pct 69.9 % [facility] Comment: Interpretive Data Percent cell count reference ranges are not reported, since discordance with absolute values may lead to misinterpretation of CBC data. Current Interpretive Data was last revised on 2018. Imm gran pct 0.3 % [facility] Comment: Interpretive Data Percent cell count reference ranges are not reported, since discordance with absolute values may lead to misinterpretation of CBC data. Current Interpretive Data was last revised on 2018. Lymphocyte pct 20.0 % [facility] Comment: Interpretive Data Percent cell count reference ranges are not reported, since discordance with absolute values may lead to misinterpretation of CBC data. Current Interpretive Data was last revised on 2018. Monocyte pct 6.6 % [facility] Comment: Interpretive Data Percent cell count reference ranges are not reported, since discordance with absolute values may lead to misinterpretation of CBC data. Current Interpretive Data was last revised on 2018. Eosinophil pct 2.9 % [facility] Comment: Interpretive Data Percent cell count reference ranges are not reported, since discordance with absolute values may lead to misinterpretation of CBC data. Current Interpretive Data was last revised on 2018. Basophil pct 0.3 % [facility] Comment: Interpretive Data Percent cell count reference ranges are not reported, since discordance with absolute values may lead to misinterpretation of CBC data. Current Interpretive Data was last revised on 2018. Blood 04/03/2025 12:1 2 PM CDT 04/03/2025 1:38 PM CDT us Kalani Wagner [employer] LAB BLOOD ORDERABLES Fi nal Result [facility] [place] [address] * CBC with auto differential (04/03/2025 12:12 PM CDT) [facility] WBC 8.83 3.80 - 9.90 K/cumm Hgb 15.4 13.0 - 17.5 g/dL [facility] Hct 44.4 38.9 - 50.3 % [facility] Plt 210 150 - 400 K/cumm [facility] MPV 10.9 9.1 - 12.[address] [facility] RBC 5.02 4.30 - 5.80 M/cumm [facility] MCV 88.4 81.3 - 96.[address] [facility] MCH 30.7 27.1 - 33.[address] [facility] MCHC 34.7 32.3 - 35.7 g/dL [facility] RDW CV 12.9 11.1 - 14.9 % [facility] RDW SD 41.5 35.7 - 48.[address] [facility] NRBC abs 0.00 0.00 - 0.01 K/cumm [facility] [facility] Blood 04/03/2025 12:1 2 PM CDT 04/03/2025 1:38 PM CDT Kalani Wagner SHUTTLECOCK FEATHER TRIMMER LAB BLOOD ORDERABLES Fi nal Result [facility] [place] [address] * Urine culture Urine, clean voided (04/03/2025 12:12 PM CDT) [facility] Report Final Report: Less than 100,000 colonies/mL (clinically insignificant growth based on current clinical standards) Organism (CLINICALLY INSIGNIFICANT GROWTH [facility] Urine, clean voided 04/03/2025 12:12 PM CDT 04/03/2025 1:27 PM CDT Narrative [facility] - 04/04/2025 2:51 PM CDT Testing performed by [facility] Microbiology Laboratory ([phone]) Kalani Wagner NP LAB MICROBIOLOGY - GENE RAL ORDERABLES Final Result Performing Organization Address City/[facility]/ZIP Co de Phone Number [facility] [place] [address] * Basic metabolic panel (04/03/2025 12:12 PM CDT) Pathologist [facility] Sodium 138 135 - 145 mmol/L Potassium, pl 3.8 3.3 - 4.9 mmol/L [facility] Chloride 101 97 - 110 mmol/L [facility] CO2 29 22 - 32 mmol/L [facility] Anion gap 8 2 - 15 mmol/L [facility] BUN 25 6 - 25 mg/dL [facility] Creatinine 1.10 0.80 - 1.30 mg/dL [facility] Glucose 90 70 - 199 mg/dL [facility] Comment: Interpretive Data Fasting glucose >/= 126 [...] Calcium 9.4 8.5 - 10.3 mg/dL [facility] Blood 04/03/2025 12:1 2 PM CDT 04/03/2025 1:37 PM CDT Kalani Wagner SHUTTLECOCK FEATHER TRIMMER LAB BLOOD ORDERABLES Fi nal Result Performing Organization Address [facility]/ZIP Co de Phone Number [facility] [place] [address] * ECG 12 lead (04/03/2025 11:57 AM CDT) Pathologist [facility] Ventricular Rate EKG/Min 53 BPM [facility] Atrial Rate 53 BPM [facility] MD-Interval (MSEC) 206 ms [facility] QRS-Interval (MSEC) 90 ms [facility] QT-Interval (MSEC) 416 ms [facility] QTc 390 ms [facility] P [place] 54 degrees [facility] R [place] 54 degrees [facility] T [place] 62 degrees [facility] Diagnosis Sinus bradycardia Otherwise normal ECG When compared with ECG of 27-NOV-2021 08:37, no significant change Confirmed by UMU MENDEZ M.D ([id number]) on 04/04/2025 8:23:01 AM [facility] 04/03/2025 11:5 7 AM CDT 04/04/2025 8:23 AM CDT us Kalani Wagner SHUTTLECOCK FEATHER TRIMMER ECG ORDERABLES Final R esult [facility] * PET/CT Prostate Cancer PSMA Skull to Thigh (02/14/2025 2:56 PM CDT) Anatomical Region Laterality Modality N/A Positron Emissio n Tomography (PET) 02/14/2025 5:14 PM CDT Impressions 02/14/2025 8:23 PM CDT 1. Focal moderately tracer avid lesion in the right posterior peripheral zone of the prostate extending from the mid gland to the apex, compatible with the biopsy-proven malignancy. 2. No PET/CT evidence of PSMA expressing locoregional rajendra or distant metastatic disease. Dictated by: Kimi Garcia MD The radiology attending physician has personally reviewed this study, and had reviewed and/or edited this written report and agrees with it. Electronically signed by: Arian Escobar M.D. Narrative 02/14/2025 8:23 PM CDT EXAMINATION: PSMA-PET/CT DATE OF STUDY: 02/14/2025 SCANNER: [facility] [employer] (SQ1). This is a high-resolution scanner, which can result in higher SUVs (and even detection of previously unrecognized small lesions) compared to older scanners. RADIOPHARMACEUTICAL: 10.37 mCi F-18 DCFPyL (Piflufolastat) i.v. Injection site: Right forearm HISTORY: 69-year-old man with prostate cancer diagnosed on 01/07/2025, Ivan Score 4+4 = 8, involving the right lobe.. The most recently obtained PSA on 11/26/2024 is 8.78 ng/mL, increasing from 6.9 ng/mL10 months ago. The study is requested for initial staging. Initial treatment strategy. TECHNIQUE: After intravenous administration of tracer, noncontrast CT images were obtained for attenuation correction and for fusion with emission PET images to allow for anatomical localization of PET findings. Emission PET images were then obtained. The study was interpreted on the Jet workstation. The total scanned area was mid thighs to skull vertex. Images of the body were obtained starting 70 minutes after injection of tracer. REFERENCE TISSUE MAXIMUM SUVs: Parotid gland 21.2; Liver 5.2; Blood pool 1.6 Focal PSMA tracer uptake is graded as follows: * Faint: above background to blood pool * Mild: above blood pool to liver * Moderate: above liver to salivary glands * Intense: similar to or above salivary glands COMPARISON: Pelvic MRI on 09/01/2023 FINDINGS: Prostate/Prostate bed: Mild heterogeneous tracer uptake throughout the prostate gland. Focal moderate tracer uptake in the right posterior peripheral zone, mid gland to the apex, image 298. Seminal vesicles are not involved. Regional lymph nodes: No abnormal tracer uptake seen. Right obturator lymph node, 0.3 cm short axis, image number 279, without any significant tracer uptake, likely reactive. Extra-pelvic lymph nodes: No abnormal tracer uptake seen. Bone: No abnormal tracer uptake seen. Visceral: No abnormal tracer uptake seen. Additional CT findings: Bilateral hydrocele. Metallic density adjacent to right vesicle ureteral junction. Bibasilar atelectasis. Coronary artery calcifications. Atherosclerotic calcification of the thoracoabdominal aorta and iliac arteries. Cholelithiasis without cholecystitis. Degenerative changes of the spine. Instrumentation anterior cervical spine fusion. Procedure Note Arian Escobar MD - 02/14/2025 EXAMINATION: PSMA-PET/CT DATE OF STUDY: 02/14/2025 SCANNER: [facility] [employer] (SQ1). This is a high-resolution scanner, which can result in higher SUVs (and even detection of previously unrecognized small lesions) compared to older scanners. RADIOPHARMACEUTICAL: 10.37 mCi F-18 DCFPyL (Piflufolastat) i.v. Injection site: Right forearm HISTORY: 69-year-old man with prostate cancer diagnosed on 01/07/2025, Ivan Score 4+4 = 8, involving the right lobe.. The most recently obtained PSA on 11/26/2024 is 8.78 ng/mL, increasing from 6.9 ng/mL10 months ago. The study is requested for initial staging. Initial treatment strategy. TECHNIQUE: After intravenous administration of tracer, noncontrast CT images were obtained for attenuation correction and for fusion with emission PET images to allow for anatomical localization of PET findings. Emission PET images were then obtained. The study was interpreted on the Jet workstation. The total scanned area was mid thighs to skull vertex. Images of the body were obtained starting 70 minutes after injection of tracer. REFERENCE TISSUE MAXIMUM SUVs: Parotid gland 21.2; Liver 5.2; Blood pool 1.6 Focal PSMA tracer uptake is graded as follows: * Faint: above background to blood pool * Mild: above blood pool to liver * Moderate: above liver to salivary glands * Intense: similar to or above salivary glands COMPARISON: Pelvic MRI on 09/01/2023 FINDINGS: Prostate/Prostate bed: Mild heterogeneous tracer uptake throughout the prostate gland. Focal moderate tracer uptake in the right posterior peripheral zone, mid gland to the apex, image 298. Seminal vesicles are not involved. Regional lymph nodes: No abnormal tracer uptake seen. Right obturator lymph node, 0.3 cm short axis, image number 279, without any significant tracer uptake, likely reactive. Extra-pelvic lymph nodes: No abnormal tracer uptake seen. Bone: No abnormal tracer uptake seen. Visceral: No abnormal tracer uptake seen. Additional CT findings: Bilateral hydrocele. Metallic density adjacent to right vesicle ureteral junction. Bibasilar atelectasis. Coronary artery calcifications. Atherosclerotic calcification of the thoracoabdominal aorta and iliac arteries. Cholelithiasis without cholecystitis. Degenerative changes of the spine. Instrumentation anterior cervical spine fusion. IMPRESSION: 1. Focal moderately tracer avid lesion in the right posterior peripheral zone of the prostate extending from the mid gland to the apex, compatible with the biopsy-proven malignancy. 2. No PET/CT evidence of PSMA expressing locoregional rajendra or distant metastatic disease. Dictated by: Kimi Garcia MD The radiology attending physician has personally reviewed this study, and had reviewed and/or edited this written report and agrees with it. Electronically signed by: Arian Escobar M.D. us Elmer Boyce MD IMG PET PROCEDURES Fi nal Result * XR Chest Pa Lateral 2 Views (02/07/2025 10:45 AM CDT) Anatomical Region Laterality Modality Body, Chest N/A Digital Radiogra phy 02/07/2025 2:58 PM CDT Narrative 02/07/2025 2:58 PM CDT EXAM DESCRIPTION: XR CHEST PA LATERAL 2 VIEWS REASON FOR STUDY: cough Pt complains of cough for about three weeks. No surgery to heart, lungs, or chest. History of prostate cancer. Non-smoker. TECHNIQUE: Frontal and lateral radiographic views of the chest were acquired. COMPARISON: None Available FINDINGS: LUNGS/PLEURA: There is no focal infiltrate or evidence of pneumothorax. No significant pleural effusion. Mild atelectasis right lung base. HEART/MEDIASTINUM: The heart size is normal. Normal mediastinal and hilar contours. LINES/TUBES: None. BONES: No acute findings. Multilevel degenerative change thoracic spine. OTHER: No other significant finding. IMPRESSION: No acute cardiopulmonary abnormality. THIS IS AN ELECTRONICALLY VERIFIED FINAL REPORT 02/07/2025 2:58 PM - Electronically signed by Hipolito Alvarado M.D. RW T: Report ID: [id number] Reading Location: [id number] Procedure Note Hipolito Alvarado MD - 02/07/2025 EXAM DESCRIPTION: XR CHEST PA LATERAL 2 VIEWS REASON FOR STUDY: cough Pt complains of cough for about three weeks. No surgery to heart, lungs,or chest. History of prostate cancer. Non-smoker. TECHNIQUE: Frontal and lateral radiographic views of the chest wereacquired. COMPARISON: None Available FINDINGS: LUNGS/PLEURA: There is no focal infiltrate or evidence of pneumothorax. No significant pleural effusion. Mild atelectasis rightlung base. HEART/MEDIASTINUM: The heart size is normal. Normal mediastinal and hilar contours. LINES/TUBES: None. BONES: No acute findings. Multilevel degenerative change thoracicspine. OTHER: No other significant finding. IMPRESSION: No acute cardiopulmonary abnormality. THIS IS AN ELECTRONICALLY VERIFIED FINAL REPORT 02/07/2025 2:58 PM - Electronically signed by Hipolito Alvarado M.D. RW T: Report ID: [id number] Reading Location: [place] [address] us Radha Walton SHUTTLECOCK FEATHER TRIMMER IMG XR PROCEDURES Final Re sult * (ABNORMAL) PSA diagnostic (11/26/2024 11:57 AM HOMICIDE INVESTIGATOR) PSA-Total 8.78(H) <=5.40 ng/mL Comment: Interpretive Data AGE SEX REFERENCE INTERVAL 0 minutes-150 years Female None 0 minutes-49 years Male None 50-59 years Male 0-3.90 60-69 years Male 0-5.40 70-79 years Male 0-6.20 80-150 years Male 0-6.20 The Jhon PSA Total assay procedure was used. Results from different manufacturers or methods may not be comparable. Serial testing should be performed using the same method. Current interpretive data last revised 22. Blood 11/26/2024 11:5 7 AM HOMICIDE INVESTIGATOR 11/26/2024 7:57 PM HOMICIDE INVESTIGATOR us Luther Cameron MD LAB BLOOD ORDERABLES [facility] Result [facility] [address] Department [place] [address] * Colonoscopy (08/16/2024 11:00 AM HOMICIDE INVESTIGATOR) Anatomical Region Laterality Modality Other Narrative Procedure Note Sarah Motta, - 08/16/2024 11:00 AM CST [facility] Patient Name: Sarah Martinez Procedure Date: 08/16/2024 11:00AM Date of : 1955 Admit Type: Outpatient Age: 68 Gender: Male Attending MD: Sarah Motta D.O. Room: [facility] ROOM 3 Note Status: Finalized Patient Profile: Refer to note in patient chart for documentation of history and physical. Procedure: Colonoscopy Indications: High risk colon cancer surveillance: Personalhistory of colonic polyps, Last colonoscopy: June2021, Incidental - Positive Cologuard test Referring MD: Keagan Saldana M.D. Providers: Sarah Motta D.O. Impression: - The examined portion of the ileum was normal. - Diverticulosis in the left colon. - Internal hemorrhoids. - No specimens collected. Recommendation: - Discharge patient to home. - Resume previous diet. - Continue present medications. - Repeat colonoscopy in 5 years for surveillance. - Return to primary care physician PRN. Medicines: Monitored Anesthesia Care Complications: No immediate complications. Estimated Blood Loss: Estimated blood loss: none. Procedure: Pre-Anesthesia Assessment: - As per anesthesia. The benefits, risks and alternatives of theprocedure and sedation were discussed and informed consentwas obtained. All questions were answered. Please referto the signed informed consent document in the medical record. The bowel preparation used was Miralax via split dose instruction. The bowel preparation usedwas bisacodyl tablets via split dose instruction. The scope was passed under direct vision. TheColonoscope [id number] was introduced through the anus and advanced to the 5 cm into the ileum. Theterminal ileum, ileocecal valve, appendiceal orifice, and rectum were photographed. The colonoscopy was performed without difficulty. The patient tolerated the procedure well. The quality of the bowel preparation was good. Findings: The perianal and digital rectal examinations were normal. The terminal ileum appeared normal. A few diverticula were found in the left colon. Internal hemorrhoids were found during endoscopy. The hemorrhoidswere mild. No additional abnormalities were found on retroflexion. Electronically signed by Sarah Motta M.D. Sarah Motta D.O. 08/16/2024 1:11:09 PM Number of Addenda: 0 Note Initiated On: 08/16/2024 11:00 AM Procedure Code(s): --- Professional --- 00521, Colonoscopy, flexible; diagnostic, including collection of specimen(s) by brushing or washing, when performed (separateprocedure) --- Technical --- 40017, Colonoscopy, flexible; diagnostic, including collection of specimen(s) by brushing or washing, when performed (separateprocedure) Diagnosis Code(s): --- Professional --- Z86.010, Personal history of colonic polyps K64.8, Other hemorrhoids K57.30, Diverticulosis of large intestine without perforation orabscess without bleeding --- Technical --- Z86.010, Personal history of colonic polyps K64.8, Other hemorrhoids K57.30, Diverticulosis of large intestine without perforation orabscess without bleeding CPT copyright 2020 [employer]. All rights reserved. The codes documented in this report are preliminary and upon gear repair supervisor reviewmay be revised to meet current compliance requirements. Recognized by the [employer] for promoting quality in endoscopy us Sarah Motta DO ENDOSCOPY PROCEDURES Final Res ult * Hepatitis C antibody (11/05/2020 9:30 AM HOMICIDE INVESTIGATOR) Hep C Ab Nonreactive Nonreactive [facility] Comment: Interpretive Data Nonreactive: Antibodies to HCV not detected. Does NOT exclude the possibility of recent exposure to HCV. Equivocal: Equivocal for HCV antibodies. Supplemental molecular testing will be automatically performed to determine infection status in accordance with current CDC screening recommendations. Reactive: Positive for HCV antibodies. This may represent current or past HCV infection. Supplemental molecular testing will be automatically performed to determine current infection status in accordance with current CDC screening recommendations. Interpretive data was last revised on 2019. Blood specimen (specimen) 11/05/2020 9:30 AM HOMICIDE INVESTIGATOR 11/05/2020 12:22 PM HOMICIDE INVESTIGATOR Keagan Saldana MD LAB MICROBIOLOGY - [facility] ORDERABLES Final Result [facility] [address] [place] [address] from Last 3 Months or Most Recently Relevant to Health Maintenance Insurance MEDICARE [email or web address] [facility]ICARE FOR [facility] Advance Directives For more information, please contact: [phone] * Full Code (Latest Code Status on File) Date Activated Date Inactivated Comments 04/17/2025 3:06 PM 04/18/2025 4:58 PM * Full Code Date Activated Date Inactivated Comments 08/16/2024 11:31 AM 08/16/2024 5:50 PM * Full Code Date Activated Date Inactivated Comments 08/16/2024 11:31 AM 08/16/2024 11:31 AM * Full Code Date Activated Date Inactivated Comments 08/22/2023 7:26 AM 08/22/2023 1:56 PM * Full Code Date Activated Date Inactivated Comments 08/22/2023 7:26 AM 08/22/2023 7:26 AM Care Teams Commercial Lending Assistant Relationship Specialty Start Date End Date Keagan Saldana MD [address] [place] [address] PCP - General Family Medicine 11/05/20 Mikel Villeda MD [address] [place] [address] Surgeon Plastic Surgery 11/23/21 Alan Medina MD [address] [place] [address] Lace Sewer Cardiology 11/23/21 Wali Boyce MD [address] [place] [address] Urologist Urology 11/23/21 Antonio Reddy MD [address] [place] [address] Urologist Urology 11/23/21 Andrea Sam MD [address] [place] [address] [place] [address] Trolley Coach Driver Gastroenterology 11/23/21 Sony Marina MD PhD [address] [place] [address] Radiation Oncologist Radiation Oncology 02/01/25 [place] [id number] [address] Consulting Physician Urology 02/01/25
--- OUTSIDE RECORDS SUMMARY | 2025-04-26 12:10 | XMS_ITS | Referral Summary ---
Author Organization [facility] 1 Address [address] [place] [address] Care Team Providers Care Securities Vault Supervisor Name Role Phone Keagan Saldana MD Primary Care Provider [phone] Mikel Villeda MD Unavailable [phone] Alan Medina MD Unavailable [phone] Wali Boyce MD Unavailable [phone] Antonio Reddy MD Unavailable [phone] Andrea Sam MD Unavailable [phone] Sony Marina MD PhD Unavailable [phone] Luther Cameron MD Unavailable [phone] Encounters Date Type Department Care Team Description 04/26/2025 Telephone [facility] [address] [place] [address] Keagan Saldana MD Symptom Based Call 04/26/2025 ISABEL ED Outreach [facility] Accountable Care Organization [address] [place] [id number] Gillian Lee MA 04/24/2025 10:33 PM CDT - 04/25/2025 3:13 AM CDT Emergency [facility] Emergency Department [address] [place] [address] Bob Ríos MD Abdominal pain (Primary Dx); Urinary problem in male Discharge Disposition: Discharge to home or self care 04/19/2025 ISABEL IP Outreach [facility] Organization [address] [place] [phone] Barb Colon LPN 04/18/2025 Orders Only [facility] Urology [address] [place] [address] Office [address] [place] [phone] Elmer Boyce MD Prostate cancer (HCC) (Primary Dx) 04/17/2025 6:31 AM CDT - 04/18/2025 12:58 PM CDT Hospital Encounter [address] [address] Elmer Boyce MD Prostate cancer (HCC) Discharge Disposition: Discharge to home or self care 04/17/2025 8:30 AM CDT - 04/17/2025 12:30 PM CDT Surgery [facility] Operating Room 1 [place] [phone] Elmer Boyce MD XI PROSTATECTOMY - LAPAROSCOPIC ROBOTIC ASSISTED 04/17/2025 8:30 AM CDT Anesthesia Event [facility] Operating Room [address] [place] [address] Deisy Etienne MD Kraenzle, Elliott 04/03/2025 10:30 AM CDT Pre-Admission Testing [facility] Center for Preoperative Assessment and [facility] ([facility]) [address] [place] [address] [id number] Preoperative testing (Primary Dx); Urination frequency 02/15/2025 Results Follow-Up [facility] Urology [address] [place] [address] Office Building [address] [place] [phone] Elmer Boyce MD PET/CT Prostate Cancer PSMA Skull to Thigh 02/14/2025 12:39 PM CDT - 02/14/2025 11:59 PM CDT Hospital Encounter [facility] - PET [address] Floor [address] [place] [address] Discharge Disposition: Discharge to home or self care 02/14/2025 12:38 PM CDT - 02/14/2025 11:59 PM CDT Hospital Encounter [facility] - PET [address] [place] [address] Prostate cancer (HCC) Discharge Disposition: Discharge to home or self care 02/07/2025 Results Follow-Up [facility] at [address] [phone] Feliz Floyd NP XR Chest Pa Lateral 2 Views 02/07/2025 10:35 AM CDT Ancillary Procedure [facility] Medical Group Imaging at [address] [phone] Acute cough 02/04/2025 Telephone [facility] Urology [address] [place] [address] Medical Office Building 1 [place] [phone] Luther Cameron MD 02/02/2025 11:00 AM CDT Office Visit [facility] at [address] [phone] Radha Walton NP Acute cough (Primary Dx) 02/01/2025 Orders Only [facility] Urology [address] [place] [address] Medical Office Building [address] [place] [phone] Elmer Boyce MD Prostate cancer (HCC) (Primary Dx) 02/01/2025 Orders Only [facility] Urology [address] [place] [address] Medical Office Building 4 [address] [place] [phone] Elmer Boyce MD 02/01/2025 Telephone [facility] Surgery [address] [place] [address] Gwen Kay EMT 02/01/2025 10:00 AM CDT Consult [facility] Radiation Oncology [address] [place] [address] Sony Marina MD PhD Prostate cancer (HCC) (Primary Dx); Malignant neoplasm of prostate (HCC) 01/31/2025 10:20 AM CDT Office Visit [facility] Urology [address] [facility] Medical Office Building [address] [place] [phone] Elmer Boyce MD Prostate cancer (HCC) (Primary Dx) from Last 3 Months Allergies Active Allergy Reactions Criticality Noted Date [...] total) by mouth nightly 90 tablet 3 025 Active Additional Information Patient taking differently:15 mg oral Nightly,Indications: pain, Informant: Self, Reported on 04/17/2025 atorvastatin (LIPITOR) 20 mg tabletIndications :Mixed hyperlipidemia Take 1 tablet (20 mg total) by mouth nightly 90 tablet 3 025 Active Additional Information Patient taking differently:20 mg [...] for up to 10 days 30 tablet 025 2024 Active docusate sodium (COLACE) [...] 11/04/2023 Assessment & Plan (11/04/2023 10:57 AM OIL CHANGE TECHNICIAN): Pepcid 40 mg at bedtime Esophagram Dermatochalasis [...] 06/29/2023 Assessment & Plan (11/04/2023 10:56 AM OIL CHANGE TECHNICIAN): Pepcid 40 mg at bedtime Esophagram Neck [...] anxiety Assessment & Plan (11/24/2022 2:09 PM OIL CHANGE TECHNICIAN): Generally well controlled, though occasionally has episodes, [...] pain Assessment & Plan (11/24/2022 2:11 PM OIL CHANGE TECHNICIAN): Has joint pain in multiple sites; notes [...] (09/09/2022): Added automatically from request for surgery [id number] Seasonal allergic rhinitis due to pollen 022 Assessment & Plan (07/26/2022 10:58 AM CDT): Nasal saline spray (Simply saline, Little Remedies, [place], [place]) 2 second sprays or 2 squeezes into [...] Nasal saline spray (Simply saline, Little Remedies, [place], [place]) 2 second sprays or 2 squeezes into [...] 07/26/2022 Assessment & Plan (11/04/2023 10:56 AM OIL CHANGE TECHNICIAN): Pepcid 40 mg at bedtime Esophagram Laryngopharyngeal reflux discussed and Handout provided Assessment & Plan (07/26/2022 11:00 AM CDT): Call if no improvement for trial of Pepcid LPR discussed and Handout provided Dupuytren's contracture of left hand 11/17/2021 Overview (11/17/2021): Added automatically from request for surgery [id number] History of colonic polyps 03/11/2021 Overview (03/11/2021): Added automatically from request for surgery [id number] S/P cervical spinal fusion 02/03/2021 Assessment & [...] nodules Assessment & Plan (11/05/2020 9:46 AM OIL CHANGE TECHNICIAN): Seen on CTA for monitoring thoracic aortic aneurysm -continue to monitor, stable in size -no history of tobacco use, no pulmonary symptoms. BPH (benign prostatic hyperplasia) 06/19/2020 Overview (06/19/2020): Added automatically from request for surgery [id number] Assessment & Plan (06/19/2024 2:15 PM CDT): [...] b.i.d. Assessment & Plan (11/24/2022 2:09 PM OIL CHANGE TECHNICIAN): Stable, well controlled; good flow with urination; [...] daily Assessment & Plan (11/24/2022 2:07 PM OIL CHANGE TECHNICIAN): Stable, well controlled; blood pressure at target [...] medicine Assessment & Plan (11/09/2021 8:25 PM OIL CHANGE TECHNICIAN): Blood pressure at target today, no signs or symptoms of hypotention Continue lisinopril 2.5 mg daily Assessment & Plan (05/06/2021 10:54 AM CDT): Stable, well controlled, continue lisinopril 2.5 mg Assessment & Plan (11/05/2020 9:43 AM OIL CHANGE TECHNICIAN): Well controlled, bp at target today though [...] dose. Assessment & Plan (11/05/2020 9:42 AM OIL CHANGE TECHNICIAN): Well controlled with Lexapro 20 mg; will [...] diet Assessment & Plan (11/24/2022 2:07 PM OIL CHANGE TECHNICIAN): Stable, well controlled; continue atorvastatin 20 mg [...] therapy Assessment & Plan (11/05/2020 9:42 AM OIL CHANGE TECHNICIAN): Stable, tolearting statin therapy well -continue atorvastatin [...] PM CDT): Stable, well controlled; follows with [facility] Continue to monitor for any changes [...] with Urology, continue to monitor PSA Biopsy Downing 6, patient in active surveillance of prostate cancer Assessment & Plan (02/03/2021 3:55 PM CDT): Briefly reviewed results of biopsy with patient, patient to follow-up with urology for further recommendations Assessment & Plan (11/05/2020 9:41 AM OIL CHANGE TECHNICIAN): Stable, following with urology for management -patient [...] History of colonoscopy with polypectomy 03/11/2021 12/13/2024 Immunizations Immunization Administration Dates Next Due Anthrax [...] 10/24/2008,07/10/1998 ZOSTER LIVE 01/05/2016 ZOSTER Recombinant 02/03/2021,07/24/2020 Social History Tobacco Use Types Packs/Day Years [...] Orientation Straight 03/11/2021 9: 12 AM CDT Last Filed Vital Signs Vital Sign Reading [...] 04/24/2025 7:57 PM CDT Plan of Treatment Not on file Medical Devices Implanted Type Area Merchandise Planning Manager Device Identifier Shelf Expiration Date Model / Serial / Lot Plate Plate Cervical-Th oracic Spine Description:Plate x 5 Screw Screw Cervical-Th oracic Spine Description:Screw x 10 [employer] [id number] Urolift Implant Urological - [id number] Implanted:Qty: 3 on 07/24/2020 by Luther Cameron MD at [facility] N/A: Urethra [employer] 09/02/2021 [id number] / / [id number] Ortholoc 47mm 3di Fusion Low Profile Compression Slot Foot Right [id number] - [id number] Implanted:Qty: 1 on 09/02/2023 by Marcello Storey Jr., MD at [facility] Right: First Toe [employer] [id number] / / [employer] Ortholoc 3di 3.5mm 38mm Low Profile Self Tapping Threaded [id number] - [id number] Implanted:Qty: 1 on 09/02/2023 by Marcello Storey Jr., MD at [facility] Right: First Toe [employer] [id number] / / [employer] Ortholoc 3.5mm 2.8mm 16mm Lock On [place] Polyaxial Self Tap Midfoot [id number] - [id number] Implanted:Qty: 2 on 09/02/2023 by Marcello Storey Jr., MD at [facility] Right: First Toe [employer] [id number] / / [employer] Ortholoc 3.5mm 2.5mm 26mm Low Profile Head Self Tap Midfoot [id number] - [id number] Implanted:Qty: 1 on 09/02/2023 by Marcello Storey Jr., MD at [facility] Right: First Toe [employer] [id number] / / [employer] Ortholoc 3.5mm 2.8mm 18mm Lock On [place] Polyaxial Self Tap Midfoot [id number] - [id number] Implanted:Qty: 1 on 09/02/2023 by Marcello Storey Jr., MD at [facility] Right: First Toe [employer] [id number] / / [employer] Ortholoc 3.5mm 2.5mm 20mm Low Profile Head Self Tap Midfoot [id number] - [id number] Implanted:Qty: 1 on 09/02/2023 by Marcello Storey Jr., MD at [facility] Right: First Toe [employer] [id number] / / Procedures Procedure Name Priority Date/Time [...] 12 :13 PM CDT Prostate cancer (HCC) DE AN PROCEDURE PLACEHOLDER Routine 04/17/2025 8:59 AM CDT DE AN ELECTIVE ENDOTRACHEAL AIRWAY Routine 04/17/2025 8:59 [...] cough PSA DIAGNOSTIC Routine 11/26/2024 11:57 AM OIL CHANGE TECHNICIAN Hypogonadism in male Prostate cancer (HCC) COLONOSCOPY 08/16/2024 11:00 AM OIL CHANGE TECHNICIAN HEPATITIS C ANTIBODY Routine 11/05/2020 9:30 AM OIL CHANGE TECHNICIAN Encounter to establish care from Last 3 Months or Most Recently Relevant to Health Maintenance Results * (ABNORMAL) Urinalysis reflex to microscopic and culture Urine (04/25/2025 1:51 AM CDT) Color, ur Yellow Yellow Clarity, ur Clear Clear [facility] Specific gravity, ur 1.022 1.003 - 1.030 [facility] pH, urine 6.0 [facility] Comment: Interpretive Data U rine pH is affected by diet, medications, systemic acid-base disturbances, and renal tubular function. pH may affect urinary stone formation. For example, urine pH below 6.0 may help reduce the tendency for calcium phosphate stones and pH greater than 6.0 may reduce the tendency for uric acid stone formation. Source: [facility] Current Interpretive Data was last revised on 2017 Protein, ur ql Negative Negative [facility] Glucose, ur ql Negative Negative [facility] Ketones, ur Negative Negative [facility] Bilirubin, ur Negative Negative [facility] Blood, ur 3+(A) Negative [facility] Urobilinogen, ur <2.0 <2.0 mg/dL [facility] Nitrite, ur Negative Negative [facility] Leukocyte esterase, ur 1+(A) Negative [facility] UA reflex comment Reflex to microscopic UA will be performed. [facility] Urine 04/25/2025 1:51 AM CDT 04/25/2025 1:56 AM CDT us Bay Rawls MD LAB MICROBIOLOGY - [facility] ORDERABLES Final Result [facility] One [facility] Department [place] [address] * (ABNORMAL) Urinalysis, microscopic only (04/25/2025 1:51 AM CDT) WBC, ur 21-50(A) 0 - 5 /HPF RBC, ur 6-10(A) 0 - 2 /HPF [facility] Epithelial cells, squamous, ur 1-5 0 - 5 /HPF [facility] Epithelial cells, transitional, ur 1-5 0 - 0 /HPF [facility] Bacteria, ur Trace(A) [facility] Mucous, ur Present(A) [facility] Hyaline casts, ur 1-5 0 - 10 /LPF [facility] Culture Reflex Comment Reflex to urine culture will be performed. [facility] Urine 04/25/2025 1:51 AM CDT 04/25/2025 1:56 AM CDT Bay Rawls MD LAB URINE ORDERABLES Fi nal Result Performing Organization Address City/[facility] Co de Phone Number [facility] Department [place] [address] * Urine culture Urine (04/25/2025 1:51 AM CDT) Report Final Report: No growth Urine 04/25/2025 1:51 AM CDT 04/25/2025 4:07 AM CDT Narrative [facility] - 04/26/2025 6:55 AM CDT Urine culture reflexed based upon urinalysis results. Testing performed by [facility] Microbiology Laboratory ([phone]) Bay Rawls MD LAB MICROBIOLOGY - GENE RAL ORDERABLES Final Result Performing Organization Address [facility] Co de Phone Number [facility] Department [place] [address] * (ABNORMAL) eGFR (04/24/2025 11:54 PM CDT) [...] of Race in Diagnosing Kidney Disease, JASN 202). The CKD-EPI equation should not be used for patients with unstable renal function and has not been validated in children and those over 70. Current interpretive data was last reviewed 2021. Blood 04/24/2025 11:5 4 PM CDT 04/25/2025 12:07 AM CDT Bay Rawls MD LAB BLOOD ORDERABLES Fi nal Result [facility] One [facility] Department [place] [address] * (ABNORMAL) Differential, auto (04/24/2025 11:54 PM CDT) Neutrophil abs 12.16(H) 1.50 - 6.50 K/cumm Imm gran abs 0.07 0.00 - 0.10 K/cumm [facility] Lymphocyte abs 1.06 0.80 - 3.30 [facility] Monocyte abs 0.73 0.20 - 0.80 K/cumm [facility] Eosinophil abs 0.46 0.00 - 0.50 K/cumm [facility] Basophil abs 0.04 0.00 - 0.10 K/cumm [facility] Neutrophil pct 83.7 % [facility] Comment: Interpretive Data Percent cell count reference ranges are not reported, since discordance with absolute values may lead to misinterpretation of CBC data. Current Interpretive Data was last revised on 2018. Imm gran pct 0.5 % [facility] Comment: Interpretive Data Percent cell count reference ranges are not reported, since discordance with absolute values may lead to misinterpretation of CBC data. Current Interpretive Data was last revised on 2018. Lymphocyte pct 7.3 % [facility] Comment: Interpretive Data Percent cell count reference ranges are not reported, since discordance with absolute values may lead to misinterpretation of CBC data. Current Interpretive Data was last revised on 2018. Monocyte pct 5.0 % [facility] Comment: Interpretive Data Percent cell count reference ranges are not reported, since discordance with absolute values may lead to misinterpretation of CBC data. Current Interpretive Data was last revised on 2018. Eosinophil pct 3.2 % [facility] Comment: Interpretive Data Percent cell count reference ranges are not reported, since discordance with absolute values may lead to misinterpretation of CBC data. Current Interpretive Data was last revised on 2018. Basophil pct 0.3 % [facility] Comment: Interpretive Data Percent cell count reference ranges are not reported, since discordance with absolute values may lead to misinterpretation of CBC data. Current Interpretive Data was last revised on 2018. Blood 04/24/2025 11:5 4 PM CDT 04/25/2025 12:06 AM CDT Bay Rawls MD LAB BLOOD ORDERABLES Fi nal Result [facility] One [facility] Department [place] [address] * (ABNORMAL) CBC with auto differential (04/24/2025 11:54 PM CDT) WBC 14.52(H) 3.80 - 9.90 K/cumm Hgb 12.4(L) 13.0 - 17.5 g/dL [facility] Hct 36.7(L) 38.9 - 50.3 % [facility] Plt 264 150 - 400 K/cumm [facility] MPV 10.6 9.1 - 12.3 fL [facility] RBC 4.04(L) 4.30 - 5.80 M/cumm [facility] MCV 90.8 81.3 - 96.4 fL [facility] MCH 30.7 27.1 - 33.3 pg [facility] MCHC 33.8 32.3 - 35.7 g/dL [facility] RDW CV 13.6 11.1 - 14.9 % [facility] RDW SD 44.1 35.7 - 48.1 fL [facility] NRBC abs 0.00 0.00 - 0.01 K/cumm [facility] Blood 04/24/2025 11:5 4 PM CDT 04/25/2025 12:06 AM CDT us Bay Rawls MD LAB BLOOD ORDERABLES Fi nal Result Performing Organization Address City/[facility] Co de Phone Number [facility] [place] [address] * Protime-INR (04/24/2025 11:54 PM CDT) Pathologist [facility] PT 12.5 9.7 - 13.0 sec INR 1.15 0.90 - 1.20 [facility] Comment: Interpretive data Oral anticoagulant therapeutic ranges: Venous thromboembolism prophylaxis or treatment: 2.0-3.0 CARDIOLOGY Standard range: 2.0-3.0 High-intensity range: 2.5-3.5 Refer to indication-specific guidelines for appropriate target ranges for prosthetic heart valve replacement. Current interpretive data was last revised on 2019. Blood 04/24/2025 11:5 4 PM CDT 04/25/2025 12:16 AM CDT Bay Rawls MD LAB BLOOD ORDERABLES Fi nal Result Performing Organization Address [facility] [place] [address] * (ABNORMAL) Lipase (04/24/2025 11:54 PM CDT) Pathologist [facility] Lipase 9(L) 10 - 99 Units/L Blood 04/24/2025 11:5 4 PM CDT 04/25/2025 12:07 AM CDT Bay Rawls MD LAB BLOOD ORDERABLES Fi nal Result Performing Organization Address City/[facility] [place] [address] * (ABNORMAL) Comprehensive metabolic panel (04/24/2025 11:54 PM CDT) [facility] Sodium 137 135 - 145 mmol/L Potassium, pl 4.2 3.3 - 4.9 mmol/L [facility] Chloride 101 97 - 110 mmol/L [facility] CO2 27 22 - 32 mmol/L [facility] Anion gap 9 2 - 15 mmol/L [facility] BUN 20 6 - 25 mg/dL [facility] Creatinine 1.36(H) 0.80 - 1.30 mg/dL [facility] Glucose 127 70 - 199 mg/dL [facility] Comment: Interpretive Data Fasting glucose [...] 2022. Calcium 9.4 8.5 - 10.3 mg/dL [facility] Bilirubin, total 1.2 0.1 - 1.2 mg/dL [facility] Protein, pl 7.0 6.5 - 8.5 g/dL [facility] Albumin 4.0 3.5 - 5.0 g/dL [facility] Alk phos 112 40 - 130 Units/L [facility] ALT 19 7 - 55 Units/L [facility] AST 23 10 - 50 Units/L [facility] Blood 04/24/2025 11:5 4 PM CDT 04/25/2025 12:07 AM CDT us Bay Rawls MD LAB BLOOD ORDERABLES Fi nal Result [facility] One [facility] Department [place] [address] * eGFR (04/17/2025 11:20 PM CDT) eGFR [...] Boyce MD LAB BLOOD ORDERABLES Final Result [facility] One [facility] Department [place] [address] * (ABNORMAL) CBC without differential (04/17/2025 11:20 PM CDT) WBC 10.70(H) 3.80 - 9.90 K/cumm Hgb 11.8(L) 13.0 - 17.5 g/dL [facility] Hct 33.6(L) 38.9 - 50.3 % [facility] Plt 194 150 - 400 K/cumm [facility] MPV 11.1 9.1 - 12.3 fL [facility] RBC 3.83(L) 4.30 - 5.80 M/cumm [facility] MCV 87.7 81.3 - 96.4 fL [facility] MCH 30.8 27.1 - 33.3 pg [facility] MCHC 35.1 32.3 - 35.7 g/dL [facility] RDW CV 13.0 11.1 - 14.9 % [facility] RDW SD 41.1 35.7 - 48.1 fL [facility] NRBC abs 0.00 0.00 - 0.01 K/cumm [facility] Blood 04/17/2025 11:2 0 PM CDT 04/18/2025 12:17 AM CDT Elmre Boyce MD LAB BLOOD ORDERABLES Final Result [facility] Department [place] [address] * Basic metabolic panel (04/17/2025 11:20 PM CDT) Sodium 137 135 - 145 mmol/L Potassium, pl 4.3 3.3 - 4.9 mmol/L [facility] Chloride 97 97 - 110 mmol/L [facility] CO2 28 22 - 32 mmol/L [facility] Anion gap 12 2 - 15 mmol/L [facility] BUN 21 6 - 25 mg/dL [facility] Creatinine 1.23 0.80 - 1.30 mg/dL [facility] Glucose 147 70 - 199 mg/dL [facility] Comment: Interpretive Data Fasting glucose [...] 2022. Calcium 8.9 8.5 - 10.3 mg/dL [facility] Blood 04/17/2025 11:2 0 PM CDT 04/18/2025 12:16 AM CDT Elmer Boyce MD LAB BLOOD ORDERABLES Final Result [facility] Department [place] [address] * POCT glucose (04/17/2025 2:59 PM CDT) Glucose, POC 136 70 - 199 mg/dL Blood 04/17/2025 2:59 PM CDT 04/17/2025 2:59 PM CDT us Elmer Boyce MD LAB POCT ORDERABLES - DEVICE Final Result [facility] Department [place] [address] * Surgical pathology (04/17/2025 12:13 PM CDT) Tissue (Prostate, Prostatectomy) 04/17/2025 12:13 PM CDT Tissue specimen (specimen) (Lymph node, dissection/region al resection) 04/17/2025 12:13 PM CDT Narrative PATHOLOGY [facility] - 04/23/2025 12:03 PM CDT EPIC results best viewed via link to PDF [facility] [place] [address] Note to Patients: This report may contain [...] Gender: M : 1955 (Age: 69) Address: [address] [place] [id number] Hospital #: [id number] Taken:04/17/2025 Received:04/17/2025 Reported: 04/23/2025 Patient Type: [facility] Inpatient Service: Surgery Location: [facility] 376 Physician(s): Elmer Boyce M.D. Keagan Saldana M.D. Diagnosis: A. Prostate, radical prostatectomy - [...] radially sectioned; a six-left base margin radially sectioned.[id number]-ywonc posterior, apex to base (A9 location of biopsy clip); X31-V63-gyoy posterior, apex to base; U60-84-iqzvz anterior base (slice 1), middle slice three, [...] B5-B 6-one lymph node in two cassettes; E3-O5-vxhwarkgc fat. Jar 0. donta/04/18/2025 14:35 Gross Resident:Vicky Lovelace M.D. PA(s): Margarita Acosta M.D. Nila Palaniappan, M.D. CANCER CASE SUMMARY FOR CARCINOMA OF THE PROSTATE GLAND Procedure: Radical prostatectomy Prostate size: Weight: 70.4g Size: 4.9 x 4.5 x 4.9 cm Histologic Type: Acinar adenocarcinoma, conventional (usual) Histologic Grade: Grade Group and Downing Score: Grade group 2 (Ivan Score 3+4=7) [...] Surgical Pathology and Flow Cytometry Departments at [facility] as part of an ongoing quality process lead program and in compliance with federally mandated [...] Surgical Pathology and Flow Cytometry Departments of [facility]. It has not been cleared or approved by the U. S. Food and Drug Administration. IMAGES AND SCANNED DOCUMENTS, IF INCLUDED, ONLY VIEWABLE IN PDF VERSION OF REPORT us Elmer Boyce MD LAB PATHOLOGY ORDERAB LES Final Result PATHOLOGY [facility] 3rd Floor [place], [place] [phone] * DE AN ELECTIVE ENDOTRACHEAL AIRWAY, DE AN PROCEDURE PLACEHOLDER (04/17/2025 8:59 AM CDT) Narrative Courtney Fowler CRNA - 04/17/2025 8:59 AM CDCourtney Cramer CRNA 04/17/2025 9:00 AM Airway Patient location: [...] 8:18 AM CDT 04/17/2025 8:18 AM CDT us Elmer Boyce MD LAB POCT ORDERABLES - DEVICE Final Result CARLENE [facility] Department [place] [address] * Check Sample (04/17/2025 7:10 AM CDT) ABO Rh A Positive [facility] HCLL OTHER 04/17/2025 7:10 AM CDT 04/17/2025 7:21 AM CDT us Elmer Boyce MD LAB BLOOD ORDERABLES Final Result Performing Organization Address [facility] Co de Phone Number [facility] [place] [address] [facility] * TYPE AND SCREEN 14 DAY (04/03/2025 12:12 PM CDT) ABO Rh A Positive Virgilio, indirect Negative [facility] Blood 04/03/2025 12:1 2 PM CDT 04/03/2025 1:33 PM CDT Narrative [facility] - 04/03/2025 2:27 PM CDT Is this test being ordered in advance for a procedure?->Yes Expected date of procedure:->04/17/25 Has the patient been transfused in the past 3 months?->No Kalani Wagner NP LAB BLOOD BANK TEST ORD ERABLES Final Result Performing Organization Address [facility] de Phone Number [facility] Department [place] [address] * eGFR (04/03/2025 12:12 PM CDT) eGFR [...] 2 PM CDT 04/03/2025 1:37 PM CDT us Kalani Wagenr ENGINEERING PRODUCTION WORKER LAB BLOOD ORDERABLES Fi nal Result [facility] Department [place] [address] * Differential, auto (04/03/2025 12:12 PM CDT) Neutrophil abs 6.16 1.50 - 6.50 K/cumm Imm gran abs 0.03 0.00 - 0.10 K/cumm [facility] Lymphocyte abs 1.77 0.80 - 3.30 [facility] Monocyte abs 0.58 0.20 - 0.80 K/cumm [facility] Eosinophil abs 0.26 0.00 - 0.50 K/cumm [facility] Basophil abs 0.03 0.00 - 0.10 K/cumm [facility] Neutrophil pct 69.9 % [facility] Comment: Interpretive Data Percent cell count reference ranges are not reported, since discordance with absolute values may lead to misinterpretation of CBC data. Current Interpretive Data was last revised on 2018. Imm gran pct 0.3 % [facility] Comment: Interpretive Data Percent cell count reference ranges are not reported, since discordance with absolute values may lead to misinterpretation of CBC data. Current Interpretive Data was last revised on 2018. Lymphocyte pct 20.0 % [facility] Comment: Interpretive Data Percent cell count reference ranges are not reported, since discordance with absolute values may lead to misinterpretation of CBC data. Current Interpretive Data was last revised on 2018. Monocyte pct 6.6 % [facility] Comment: Interpretive Data Percent cell count reference ranges are not reported, since discordance with absolute values may lead to misinterpretation of CBC data. Current Interpretive Data was last revised on 2018. Eosinophil pct 2.9 % [facility] Comment: Interpretive Data Percent cell count reference ranges are not reported, since discordance with absolute values may lead to misinterpretation of CBC data. Current Interpretive Data was last revised on 2018. Basophil pct 0.3 % [facility] Comment: Interpretive Data Percent cell count reference ranges are not reported, since discordance with absolute values may lead to misinterpretation of CBC data. Current Interpretive Data was last revised on 2018. Blood 04/03/2025 12:1 2 PM CDT 04/03/2025 1:38 PM CDT Kalani Wagner ENGINEERING PRODUCTION WORKER LAB BLOOD ORDERABLES Fi nal Result Performing Organization Address City/[facility]/ZIP Co de Phone Number [facility] Department [place] [address] * CBC with auto differential (04/03/2025 12:12 PM CDT) WBC 8.83 3.80 - 9.90 K/cumm Hgb 15.4 13.0 - 17.5 g/dL [facility] Hct 44.4 38.9 - 50.3 % [facility] Plt 210 150 - 400 K/cumm [facility] MPV 10.9 9.1 - 12.3 fL [facility] RBC 5.02 4.30 - 5.80 M/cumm [facility] MCV 88.4 81.3 - 96.4 fL [facility] MCH 30.7 27.1 - 33.3 pg [facility] MCHC 34.7 32.3 - 35.7 g/dL [facility] RDW CV 12.9 11.1 - 14.9 % [facility] RDW SD 41.5 35.7 - 48.1 fL [facility] NRBC abs 0.00 0.00 - 0.01 K/cumm [facility] Blood 04/03/2025 12:1 2 PM CDT 04/03/2025 1:38 PM CDT Kalani Wagner ENGINEERING PRODUCTION WORKER LAB BLOOD ORDERABLES Fi nal Result Performing Organization Address City/[facility]/ZIP Co de Phone Number [facility] Department [place] [address] * Urine culture Urine, clean voided (04/03/2025 12:12 PM CDT) Pathologist [facility] Report Final Report: Less than 100,000 colonies/mL (clinically insignificant growth based on current clinical standards) Organism (CLINICALLY INSIGNIFICANT GROWTH [facility] Urine, clean voided 04/03/2025 12:12 PM CDT 04/03/2025 1:27 PM CDT Narrative [facility] - 04/04/2025 2:51 PM CDT Testing performed by [facility] Microbiology Laboratory ([phone]) Kalani Wagner NP LAB MICROBIOLOGY - [facility] ORDERABLES Final Result [facility] One [facility] [place] [address] * Basic metabolic panel (04/03/2025 12:12 PM CDT) Pathologist [facility] Sodium 138 135 - 145 mmol/L Potassium, pl 3.8 3.3 - 4.9 mmol/L [facility] Chloride 101 97 - 110 mmol/L [facility] CO2 29 22 - 32 mmol/L [facility] Anion gap 8 2 - 15 mmol/L [facility] BUN 25 6 - 25 mg/dL [facility] Creatinine 1.10 0.80 - 1.30 mg/dL [facility] Glucose 90 70 - 199 mg/dL [facility] Comment: Interpretive Data Fasting glucose [...] 2022. Calcium 9.4 8.5 - 10.3 mg/dL [facility] Blood 04/03/2025 12:1 2 PM CDT 04/03/2025 1:37 PM CDT Kalani Wagner ENGINEERING PRODUCTION WORKER LAB BLOOD ORDERABLES Fi nal Result Performing Organization Address [facility] Co de Phone Number [facility] Department [place] [address] * ECG 12 lead (04/03/2025 11:57 AM CDT) Ventricular Rate EKG/Min 53 BPM [facility] Atrial Rate 53 BPM [facility] DE-Interval (MSEC) 206 ms [facility] QRS-Interval (MSEC) 90 ms [facility] QT-Interval (MSEC) 416 ms [facility] QTc 390 ms [facility] P [place] 54 degrees [facility] R [place] 54 degrees [facility] T [place] 62 degrees [facility] Diagnosis Sinus bradycardia Otherwise normal ECG When compared with ECG of 27-NOV-2021 08:37, no significant change Confirmed by UMU MENDEZ M.D ([id number]) on 04/04/2025 8:23:01 AM [facility] 04/03/2025 11:5 7 AM CDT 04/04/2025 8:23 AM CDT Kalani Wagner ENGINEERING PRODUCTION WORKER ECG ORDERABLES Final R esult Performing Organization Address [facility] Co de Phone Number [facility] * PET/CT Prostate Cancer PSMA Skull to [...] EXAMINATION: PSMA-PET/CT DATE OF STUDY: 02/14/2025 SCANNER: [facility] [employer] (SQ1). This is a high-resolution scanner, which [...] obtained. The study was interpreted on the en-Gauge workstation. The total scanned area was mid [...] EXAMINATION: PSMA-PET/CT DATE OF STUDY: 02/14/2025 SCANNER: [facility] [employer] (SQ1). This is a high-resolution scanner, which can result in higher SUVs (and even detection of previously unrecognized small lesions) compared to older scanners. RADIOPHARMACEUTICAL: 10.37 mCi F-18 DCFPyL (Piflufolastat) i.v. Injection site: Right forearm HISTORY: 69-year-old man with prostate cancer diagnosed on 01/07/2025, Downing Score 4+4 = 8, involving the right [...] obtained. The study was interpreted on the en-Gauge workstation. The total scanned area was mid [...] it. Electronically signed by: Arian Escobar M.D. Elmer Boyce MD IMG PET PROCEDURES Fi [...] Hipolito Alvarado M.D. RW T: Report ID: [id number] Reading Location: [id number] Procedure Note Hipolito Alvarado MD - 02/07/2025 [...] 2:58 PM - Electronically signed by Hipolito ADAMES T: Report ID: [id number] Reading Location: [id number] Radha Walton ENGINEERING PRODUCTION WORKER IMG XR PROCEDURES Final Re sult * (ABNORMAL) PSA diagnostic (11/26/2024 11:57 AM OIL CHANGE TECHNICIAN) PSA-Total 8.78(H) <=5.40 ng/mL Comment: Interpretive Data [...] revised 22. Blood 11/26/2024 11:5 7 AM OIL CHANGE TECHNICIAN 11/26/2024 7:57 PM OIL CHANGE TECHNICIAN us Luther Cameron MD LAB BLOOD ORDERABLES Fi nal Result CARLENE [address] [facility] Department [place] [address] * Colonoscopy (08/16/2024 11:00 AM OIL CHANGE TECHNICIAN) Anatomical Region Laterality Modality Other Narrative Procedure Note Sarah Motta DO - 08/16/2024 11:00 AM CST [facility] Patient Name: Sarah Martinez Procedure Date: 08/16/2024 11:00AM Date of : 1955 Admit Type: Outpatient Age: 68 Gender: Male Attending MD: Sarah Motta D.O. Room: [facility] 3 Note Status: Finalized Patient [...] scope was passed under direct vision. TheColonoscope [id number] was introduced through the anus and advanced [...] 11:00 AM Procedure Code(s): --- Professional --- 86221, Colonoscopy, flexible; diagnostic, including collection of specimen(s) by brushing or washing, when performed (separateprocedure) --- Technical --- 64763, Colonoscopy, flexible; diagnostic, including collection of specimen(s) by brushing or washing, when performed (separateprocedure) Diagnosis Code(s): --- Professional --- Z86.010, Personal history of colonic polyps K64.8, Other hemorrhoids K57.30, Diverticulosis of large intestine without perforation orabscess without bleeding --- Technical --- Z86.010, Personal history of colonic polyps K64.8, Other hemorrhoids K57.30, Diverticulosis of large intestine without perforation orabscess without bleeding CPT copyright 2020 [employer]. All rights reserved. The codes documented in this report are preliminary and upon entertainer or variety artist reviewmay be revised to meet current compliance requirements. Recognized by the [employer] for promoting quality in endoscopy Sarah Motta DO ENDOSCOPY PROCEDURES Final Res ult * Hepatitis C antibody (11/05/2020 9:30 AM OIL CHANGE TECHNICIAN) Hep C Ab Nonreactive Nonreactive [facility] Comment: Interpretive Data Nonreactive: Antibodies to HCV [...] 2019. Blood specimen (specimen) 11/05/2020 9:30 AM OIL CHANGE TECHNICIAN 11/05/2020 12:22 PM OIL CHANGE TECHNICIAN Keagan Saldana MD LAB MICROBIOLOGY - GENERA L ORDERABLES Final Result [facility] [id number] Department [place] [address] from Last 3 Months or Most Recently Relevant to Health Maintenance Insurance MEDICARE FOR LIFE MEDICARE MEDICARE FOR LIFE Advance Directives For more information, please contact: [phone] * Full Code (Latest Code Status on [...] 7:26 AM 08/22/2023 7:26 AM Care Teams Securities Vault Supervisor Relationship Specialty Start Date End Date Keagan Saldana MD [address] [place] [address] PCP - General Family Medicine 11/05/20 Mikel Villeda MD [address] [place] [address] Surgeon Plastic Surgery 11/23/21 Alan Medina MD [address] [place] [address] Fork Truck Operator Cardiology 11/23/21 Wali Boyce MD [address] [place] [address] Urologist Urology 11/23/21 Antonio Reddy MD [address] [place], [place] [id number] Urologist Urology 11/23/21 Andrea Sam MD [address] [address] Stockkeeper Gastroenterology 11/23/21 Sony Marina MD PhD [address] [place] [address] Radiation Oncologist Radiation Oncology 02/01/25 [place] [address] [facility] [address] [place] [address] Consulting Physician Urology 02/01/25
--- OUTSIDE RECORDS SUMMARY | 2025-04-26 12:10 | XMS_ITS | Clinical Summary ---
Author Organization [facility] Address [address] [place] [address] Care Team Providers Care Butcher'S Assistant Name Role Phone Alan Medina MD Unavailable [phone] Keagan Saldana MD Primary Care Provider [phone] Allergies Active Allergy Reactions Criticality Noted Date Comments Cefazolin Nausea and Vomiting Low 11/27/2021 Oxycodone-Acetaminoph en Hives Medium 04/29/2015 Per pt previous tolerated norco Propofol Nausea and Vomiting Low 10/03/2021 Medications atorvastatin 20 MG tablet Take 1 tablet (20 mg total) by mouth every evening. 9 Active Eszopiclone 3 MG Tab TAKE 1 TABLET BY MOUTH ONCE DAILY AT BEDTIME FOR SLEEP 9 Active meloxicam 15 MG tablet Take 1 tablet (15 mg total) by mouth daily. 9 Active tamsulosin 0.4 MG Cap Take 2 capsules (0.8 mg total) by mouth daily. Active clonazePAM (KLONOPIN) 0.5 MG tablet Take 1 tablet (0.5 mg total) by mouth nightly as needed for Anxiety. 4 Active famotidine (PEPCID) 40 MG tablet Take 1 tablet (40 mg total) by mouth daily. 4 Active fluticasone propionate (FLONASE) 50 MCG/ACT nasal spray 1 spray by Nasal route. 4 Active ibuprofen (MOTRIN) 200 MG tablet Take 3 tablets (600 mg total) by mouth. Active escitalopram (LEXAPRO) 10 MG tablet 5 Active escitalopram 20 MG tablet Take 1 tablet (20 mg total) by mouth daily. 9 025 Discontinued Testosterone 10 MG/ACT (2%) Gel PLACE 40MG (4 ACTUATIONS) ON THE SKIN DAILY 0 025 Discontinued Active Problems Problem Noted Date Diagnosed Date Impingement syndrome of shoulder region 04/15/20 25 Knee stiffness 04/15/2025 Overview (04/15/2025): 719.56 Loose body in knee 04/15/2025 Mechanical ptosis 04/15/2025 Osteoarthritis of knee, unspecified 04/15/2025 Overview (04/15/2025): pt is not a good surgical candidate for another knee scope as the last one failed. appropriate further surgical procedures would involve either HTO or a medial unicondylar arthroplasty. pt is not inuterested in intervention of that scale at this point in time. discussed permanent no running profile - pt will get that paperwork through the [employer]. Orthopedic aftercare 04/15/2025 Mild cognitive impairment 12/17/2024 Positive colorectal cancer screening using Colog uard test 07/27/2024 Esophageal dysphagia 11/04/2023 Duodenitis 09/22/2023 Dermatochalasis of unspecified eye, unspecified eyelid 08/11/2023 Deviated nasal septum 08/11/2023 Diplopia 08/11/2023 Disease of sebaceous glands 08/11/2023 Overview (09/03/2024): Reassured of benign nature of several lesions c/w sebaceous hyperplasia on forehead. Treated approx eight lesions w/ hyfrecation. Disorder of ocular adnexa 08/11/2023 Disorder of visual pathway 08/11/2023 Actinic keratosis 07/07/2023 Age-related cataract of both eyes 07/07/2023 Arthralgia of shoulder 07/07/2023 Asymmetrical sensorineural hearing loss 07/07/20 23 Bicuspid aortic valve (HHS/HCC) 07/07/2023 Assessment & Plan (04/15/2025 12:39 PM CDT): He has a bicuspid aortic valve with mild to moderate aortic regurgitation on his last echocardiogram. Given increased occurrence of shortness of breath, recommend repeating echocardiogram at this time. Assessment & Plan (09/03/2024 1:27 PM MULTI SHARE PROGRAM COORDINATOR): He has a bicuspid aortic valve with mild to moderate aortic regurgitation. Can repeat an echo in 1 to 2 years. Cervical radiculopathy 07/07/2023 Overview (09/03/2024): sx now resolved - no motor dysfunction, only minimal residual sensory changes. I have reviewd MRI personally and with patient - sx correspond with area of herniated disc at C6-7, C7-T1. D/W patient: a. Caution with any motion, activities that Chest pain 07/07/2023 Overview (09/03/2024): Pt has had exertional chest discomfort over [...] Viagra (which he takes prn) with nitrates. 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 DDx to include AK, SCC, BCC. Biopsy for diagnosis. Pneumonia 07/07/2023 Post-void dribbling 07/07/2023 Overview (09/03/2024): desires no medical management at this time Presbyopia 07/07/2023 Primary localized osteoarthrosis of shoulder reg ion 07/07/2023 Regular astigmatism 07/07/2023 Subjective tinnitus 07/07/2023 Chewing tobacco use 06/29/2023 History of Helicobacter pylori infection 023 Neck discomfort 06/29/2023 NSAID long-term use 06/29/2023 Throat burning 06/29/2023 Gastroesophageal reflux disease 06/29/2023 Hypogonadism in male 03/25/2023 Primary insomnia 03/25/2023 GARRETT (generalized anxiety disorder) 11/24/2022 Primary osteoarthritis involving multiple joints 11/24/2022 Shortness of breath 09/13/2022 Assessment & Plan (04/15/2025 12:41 PM CDT): Given ongoing concerns for shortness of breath, recommended repeating echocardiogram to evaluate degree of aortic regurgitation. Pending echo results, discussed need for stress testing. Assessment & Plan (09/13/2022 5:12 PM MULTI SHARE PROGRAM COORDINATOR): I recommended that he get an echocardiogram to reassess his aortic valve. I do not hear a murmur. If his echo is stable, would consider exercise stress testing. Arthritis of right foot 09/09/2022 Overview (09/03/2024): Added automatically from request for surgery [id number] Laryngeal spasm 07/26/2022 Rhinitis medicamentosa 07/26/2022 Seasonal allergic rhinitis due to pollen 022 Cough 05/21/2022 Dupuytren's contracture of left hand 11/17/2021 Overview (09/03/2024): Added automatically from request for surgery [id number] BPH (benign prostatic hyperplasia) 06/19/2020 Overview (09/03/2024): Added automatically from request for surgery [id number] Gastroesophageal reflux disease without esophagi tis 08/21/2019 Prostate cancer ([facility]) 08/21/2019 Major depressive disorder 08/21/2019 Thoracic aortic aneurysm without rupture 019 Assessment & Plan (04/15/2025 12:39 PM CDT): Last CTA chest showed a stable aneurysm. Recommend repeating at this time. Continue blood pressure control. He is not currently requiring any antihypertensive therapy. Assessment & Plan (09/03/2024 1:28 PM MULTI SHARE PROGRAM COORDINATOR): His aneurysm is stable. Continue blood pressure management. Assessment & Plan (01/31/2024 8:02 AM CDT): He had a CTA chest 09/2021 that showed an aneurysm of 4.3 cm. Recommend repeat CTA for surveillance. Would benefit from strict BP control. Assessment & Plan (09/13/2022 5:13 PM MULTI SHARE PROGRAM COORDINATOR): He had a CTA chest last year that showed an aneurysm of 4.3 cm. Continue with echocardiogram. We can consider CTA next year, if his echo is stable. History of chest pain 08/21/2019 AR (congenital aortic regurgitation) ([facility]) 1 10/21/2018 Assessment & Plan (09/03/2024 1:39 PM MULTI SHARE PROGRAM COORDINATOR): Most recent echo shows mild to moderate aortic regurgitation. No diastolic murmur auscultated. Can repeat echo next year. Assessment & Plan (01/31/2024 8:03 AM CDT): Recommend echo to evaluate aortic valve given symptoms. If unremarkable, consider stress test given risk factors. Assessment & Plan (09/13/2022 5:12 PM MULTI SHARE PROGRAM COORDINATOR): Recommend echo to evaluate aortic valve. Essential hypertension 08/21/2019 Assessment & Plan (04/15/2025 12:40 PM CDT): BP is well controlled. Previously on lisinopril, but now not on antihypertensive therapy due to hypotensive episodes. Assessment & Plan (09/03/2024 1:42 PM MULTI SHARE PROGRAM COORDINATOR): BP is well controlled. Previously on lisinopril, but now not on antihypertensive therapy. Assessment & Plan (01/31/2024 8:03 AM CDT): BP low. C/o dizziness. Advised to stop lisinopril. Increase fluid intake. Mixed hyperlipidemia 08/21/2019 Assessment & Plan (04/15/2025 12:42 PM CDT): Last lipid panel is well-controlled. Continue atorvastatin. Assessment & Plan (09/03/2024 1:42 PM MULTI SHARE PROGRAM COORDINATOR): Continue atorvastatin. Heart palpitations 08/21/2019 Diverticulosis of large inte muna without perforation or abscess without bleeding 09/22/2018 Dupuytren disease of palm 07/14/2017 Contracture, left hand 05/26/2017 High prostate specific antigen (PSA) 06/15/2016 Overview (09/03/2024): After re-discussion with Dr. Lam, will attempt trial of Levaquin x 4 wks and repeat PSA. Fu with Dr. Lam. Obstructive sleep apnea (adult) (pediatric) 04/02 Heart murmur Encounters Date Type Department Care Team Description 04/15/2025 11:00 AM CDT [facility] Visit [facility], [address] [address] Zandra Olmstead, ABIGAIL Follow Up (Aortic Regurgitation) 04/15/2025 Travel from Last 3 Months Family History Relation Status Comments Brother Alive Father (Age 64) heart attack Maternal Grandfather (Age 79) Maternal Grandmother (Age 80) Mother (Age 86) Paternal Grandfather (Age 86) Paternal Grandmother (Age 69) Sister Alive Social History Tobacco Use Types Packs/Day Years Used Date Smoking Tobacco: Every Day Smokeless Tobacco: Current Chew Tobacco Cessation:Ready to Q uit: Not Asked; Counseling Given: Not Answered Alcohol Use Standard Drinks/Week Comments Yes 0 (1 standard drink = 0.6 oz pur e alcohol) 1-2 per week Sex and Gender Information Value Date Recorded Sex Assigned at Not on file Legal Sex Male 2:22 PM CDT Gender Identity Not on file Sexual Orientation Not on file Last Filed Vital Signs Vital Sign Reading Time Taken Comments Blood Pressure 110/60 04/15/2025 10:50 AM CDT Pulse 71 04/15/2025 10:50 AM CDT Temperature - - Respiratory Rate - - Oxygen Saturation 95% 04/15/2025 10:50 AM CDT Inhaled Oxygen Concentration - - Weight 91.4 kg (201 lb 9.6 oz) 04/15/2025 10:50 AM CDT Height 185.4 cm (6' 1) 04/15/2025 10:50 AM CDT Body Mass Index 26.6 04/15/2025 10:50 AM CDT Plan of Treatment Upcoming Encounters Date Type Department Care Team (Late st Contact Info) Description 05/01/2025 9:00 AM CDT Appointment [facility] [place] [address] Zandra Olmstead PA 3 [facility], [address] [address] 05/01/2025 10:30 AM CDT [place] [address] Zandra Olmstead PA 3 [facility], [address] [address] 07/18/2025 10:15 AM CDT Office Visit [facility], [place] [address] [place] [address] Zandra Olmstead PA 3 [facility], [address] [place] [address] Health Maintenance Due Date Last Done Comments Colorectal Cancer Screening Colonoscopy (10 Years) 1955 Hepatitis C 12/03/1973 RSV Immunization or 60+ Years (1 - Risk 60-74 years 1-dose series) 2015 Annual Medicare Wellness Visit 12/03/2020 COVID-19 Vaccine (3 - season) 2024 08/13/2021, 12/26/2020 DTaP, Tdap and Td Vaccines (4 - Td or Tdap) 11/05/2030 11/05/2020, 10/03/2016, 04/20/2016, Additional history exists Zoster Vaccines Completed 02/03/2021, 07/04, 01/05/2016 Pneumococcal Vaccine: 50+ Years Completed 12/29/2022, 05/07/2022, 02/03/2021 AAA SCREENING Completed 02/14/2025, 04/2024, 03/02/2022, Additional history exists Meningococcal B Vaccine Aged Out No l onger eligible based on patient's age to complete this topic Meningococcal Vaccine Aged Out No kathi sneha eligible based on patient's age to complete this topic RSV Immunizations Under 20 Months Aged Out No longer eligible based on patient's age to complete this topic Procedures Procedure Name Priority Date/Time Associated Diagnosis Comments CTA CHEST Routine 02/07/2024 1:26 PM CDT Thoracic aortic aneurysm without rupture from Last 3 Months or Most Recently Relevant to Health Maintenance Results * CTA CHEST (02/07/2024 1:26 PM CDT) Anatomical Region Laterality Modality Chest Computed Tomogra phy 02/08/2024 6:46 AM CDT Impressions 02/08/2024 6:53 AM CDT IMPRESSION: 1. Gross stable appearance to the aneurysmal dilatation of the ascending aorta given differences of technique and measurement variability 2. Coronary arterial calcifications and degenerative changes 3. Cholelithiasis without evidence of cholecystitis 4. Stable pulmonary nodules consistent with benign pathology and do not require additional follow-up Any follow-up recommendations contained in this report for incidentally detected pulmonary nodules were made according to current recommended guidelines based at a minimum on nodule size AND patient risk factors. Referred By: SRINIVASAN ANG Interpreted By: Héctor Asencio MD, 02/08/2024 6:46 AM Narrative 02/08/2024 6:53 AM CDT INDICATION: Aortic aneurysm TECHNIQUE: CTA of the chest was performed with and without IV contrast including MIP reformatted images. DOSE OPTIMIZATION: This facility uses dose optimization techniques as appropriate to perform exams, including at least one of the following techniques: 1. Automated exposure control. 2. Adjustment of the mA and/or kV according to patient size (this includes techniques or standardized protocols for targeted exams where dose is matched to the indication/reason for exam, i.e. extremities or head). 3. Use of iterative reconstructive technique. COMPARISON: 09/22/2021 FINDINGS: Atherosclerotic changes and coronary arterial calcifications are noted. Aortic valvular calcifications are seen. There are gallstones noted without wall thickening or pericholecystic fluid. No mediastinal lymphadenopathy by size criteria is seen. No consolidation or pleural effusion is seen. Scarring atelectasis is noted in the lung bases. There is stable small pulmonary nodules consistent with benign pathology given their stability over 2 years There are degenerative changes in the spine. There are postsurgical changes in the cervical spine Sinus of Valsalva 3.8 x 4 cm Sinotubular junction 3.3 x 3.4 cm Ascending aorta 4.2 x 4.3 cm Transverse aorta 2.7 x 2.8 cm Descending aorta 2.3 x 2.3 cm Procedure Note Etienne Asencio MD - 02/08/2024 INDICATION: Aortic aneurysm TECHNIQUE: CTA of the chest was performed with and without IV contrastincluding MIP reformatted images. DOSE OPTIMIZATION: This facility uses dose optimization techniques asappropriate to perform exams, including at least one of the followingtechniques: 1. Automated exposure control. 2. Adjustment of the mA and/or kV according to patient size (this includestechniques or standardized protocols for targeted exams where dose ismatched to the indication/reason for exam, i.e. extremities or head). 3. Use of iterative reconstructive technique. COMPARISON: 09/22/2021 FINDINGS: Atherosclerotic changes and coronary arterial calcifications arenoted. Aortic valvular calcifications are seen. There are gallstonesnoted without wall thickening or pericholecystic fluid. No mediastinal lymphadenopathy by size criteria is seen. Noconsolidation or pleural effusion is seen. Scarring atelectasis is notedin the lung bases. There is stable small pulmonary nodules consistentwith benign pathology given their stability over 2 years There are degenerative changes in the spine. There are postsurgicalchanges in the cervical spine Sinus of Valsalva 3.8 x 4 cm Sinotubular junction 3.3 x 3.4 cm Ascending aorta 4.2 x 4.3 cm Transverse aorta 2.7 x 2.8 cm Descending aorta 2.3 x 2.3 cm IMPRESSION: 1. Gross stable appearance to the aneurysmal dilatation of the ascendingaorta given differences of technique and measurement variability 2. Coronary arterial calcifications and degenerative changes 3. Cholelithiasis without evidence of cholecystitis 4. Stable pulmonary nodules consistent with benign pathology and do notrequire additional follow-up Any follow-up recommendations contained in this report for incidentallydetected pulmonary nodules were made according to current recommendedguidelines based at a minimum on nodule size AND patient risk factors. Referred By: SRINIVASAN ANG Interpreted By: Héctor Asencio MD, 02/08/2024 6:46 AM Srinivasan Ang PA-C CT Final Resul t from Last 3 Months or Most Recently Relevant to Health Maintenance Insurance MEDICARE [facility] Care Teams Butcher'S Assistant Relationship Specialty Start Date End Date Keagan Saldana MD [address] [place] [id number] PCP - General FAMILY PRACTICE 01/30/24 Alan Medina MD [facility]. [facility] [address] [place] [id number] Carrie Director Cost INTERVENTIONAL CARDIOLOGY 08/06/19
[2025-04-26] MEDS: LACTATED RINGERS 500 ML 999 ML IV CONT ×2 (12:39→15:49)
[2025-04-26] MEDS: ONDANSETRON INJ 4 MG/2 ML VIAL IV PUSH (12:39)
--- OUTSIDE RECORDS SUMMARY | 2025-04-26 12:40 | XMS_ITS | Clinical Summary ---
Author Organization [facility] Address [address] [place] [address] Care Team Providers Care Vegetable Cutter Name Role Phone Unavailable Primary Care Provider [...]
--- OUTSIDE RECORDS SUMMARY | 2025-04-26 12:40 | XMS_ITS | Encounter Summary ---
Author Organization [facility] Health Address [address] [place] [address] Care Team Providers Care System Programmer Name Role Phone Unavailable Primary Care Provider Unavailabl e Prior Encounters Date Type Department Care Team Description 10/22/2019 Converted 13x Documents [facility] [address] [place] [phone] <No scans attached> 10/22/2019 Converted CPS Chart Documents [facility] [address] [place] [phone] <No scans attached> Plan of Treatment Not on file Procedures Procedure Name Priority Date/Time Associated Diagnosis Comments 20 MOD AMALGAM 3 SURFACE Routine 013 2:00 AM SUPERVISOR BOILERMAKING SHOP 19 AMALGAM 3 SURFACE Routine 013 2:00 AM SUPERVISOR BOILERMAKING SHOP 17 AMALGAM 3 SURFACE Routine 013 2:00 AM SUPERVISOR BOILERMAKING SHOP 31 MO AMALGAM 2 SURFACE Routine 10/28/19 13 2:00 AM SUPERVISOR BOILERMAKING SHOP 21 DO AMALGAM 2 SURFACE Routine 10/28/19 13 2:00 AM SUPERVISOR BOILERMAKING SHOP 14 ENDODONTIC THERAPY, MOLAR TOOTH (EXCLUDING FINAL CONGREGATIONAL) Routine 10/28/2012 2:00 AM SUPERVISOR BOILERMAKING SHOP TOPICAL APPLICATION OF FLUORIDE VARNISH Routine 10/28/2012 2:00 AM SUPERVISOR BOILERMAKING SHOP PROPHYLAXIS - ADULT Routine 10/28/2012 2 :00 AM SUPERVISOR BOILERMAKING SHOP COMPREHENSIVE ORAL EVALUATION - NEW OR ESTABLISHED PATIENT Routine 10/28/2012 2:00 AM SUPERVISOR BOILERMAKING SHOP PANORAMIC RADIOGRAPHIC IMAGE Routine 10/28/2012 2:00 AM SUPERVISOR BOILERMAKING SHOP INTRAORAL - COMPREHENSIVE SERIES OF RADIOGRAPHIC IMAGES Routine 10/28/2012 2:00 AM SUPERVISOR BOILERMAKING SHOP INTRAORAL PHOTO Routine 10/28/2012 2:00 AM SUPERVISOR BOILERMAKING SHOP INTRAORAL PHOTO Routine 10/28/2012 2:00 AM SUPERVISOR BOILERMAKING SHOP INTRAORAL PHOTO Routine 10/28/2012 2:00 AM SUPERVISOR BOILERMAKING SHOP INTRAORAL PHOTO Routine 10/28/2012 2:00 AM SUPERVISOR BOILERMAKING SHOP Visit Diagnoses Not on file
[2025-04-26] MEDS: HYDROmorphone HCL INJ (*CRX) 2 MG/ML VIAL 0.5 MG IV PUSH ×2 (12:41→13:52)
--- OUTSIDE RECORDS SUMMARY | 2025-04-26 12:41 | XMS_ITS | Encounter Summary ---
Author Organization [facility] Address [address] [place] [address] Care Team Providers Care Labor Economics Teacher Name Role Phone Keagan Saldana MD Primary Care Provider [phone] Mikel Villeda MD Unavailable [phone] Alan Medina MD Unavailable [phone] Wali Boyce MD Unavailable [phone] Antonio Reddy MD Unavailable [phone] Andrea Sam MD Unavailable [phone] Sony Marina MD PhD Unavailable [phone] Luther Cameron MD Unavailable [phone] Encounter Details Date Type Department Care Team (Late st Contact Info) Description 01/06/2021 Telephone [facility] [address] [place] [address] Margo Velarde, RT Social History Tobacco Use [...] COVID: Suspected 10/10/2024 10/10/2024 10/10/2024 7:33 PM 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 10/20/2024 10/23/2024 01/18/2025 3:05 AM C DT documented as of this encounter Care Teams Labor Economics Teacher Relationship Specialty Start Date End [place] [address] PCP - General Family Medicine 11/05/20 Mikel Villeda MD [address] [place] [address] Surgeon Plastic Surgery 11/23/21 Alan Medina MD [address] [place] [address] Stunt Man Cardiology 11/23/21 Wali Boyce MD [address] [place] [address] Urologist Urology 11/23/21 Antonio Reddy MD [address] [place] [address] Urologist Urology 11/23/21 Andrea Sam MD [address] [place] [address] [facility] Gastroenterology 11/23/21 Sony Marina MD PhD [address] [place] [address] Radiation Oncologist Radiation Oncology 02/01/25 [place] [address] [address] Consulting Physician Urology 02/01/25 documented as of this encounter
--- OUTSIDE RECORDS SUMMARY | 2025-04-26 12:41 | XMS_ITS | Encounter Summary ---
Author Organization [facility] Healthcare Address [address] [place] [address] Care Team Providers Care Road Cutter Name Role Phone Keagan Saldana MD Primary Care Provider + [phone] Mikel Villeda MD Unavailable [phone] Alan Medina MD Unavailable [phone] Wali Boyce MD Unavailable [phone] Antonio Reddy MD Unavailable [phone] Andrea Sam MD Unavailable [phone] Encounter Details Date Type Department Care Team (Late st Contact Info) Description 07/07/2023 1:23 PM CDT Hospital Encounter [facility] [address] [phone] Social History Tobacco Use Types [...] COVID: Suspected 10/10/2024 10/10/2024 10/10/2024 7:33 PM 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 10/20/2024 10/23/2024 01/18/2025 3:05 AM C DT documented as of this encounter Care Teams Road Cutter Relationship Specialty Start Date End Date Keagan Saldana MD [address] [place] [address] PCP - General Family Medicine 11/05/20 Mikel Villeda MD [address] [place] [address] Surgeon Plastic Surgery 11/23/21 Alan Medina MD [address] [place] [address] Pointer Helper Cardiology 11/23/21 Wali Boyce MD [address] [place] [address] Urologist Urology 11/23/21 Antonio Reddy MD [address] [place] [address] Urologist Urology 11/23/21 Andrea Sam MD [address] [place] [address] [place] [address] Editing Computer Publisher Gastroenterology 11/23/21 documented as of this encounter
--- OUTSIDE RECORDS SUMMARY | 2025-04-26 12:41 | XMS_ITS | Continuity of Care Document ---
Author Name [facility] Organization [facility] Care Team Providers Care Department Editor Name Role Phone [facility] Unavailable Unavailable Problems [...] 2014 Condition DoD Cervical radiculopathy Active Condition [facility] Cervicalgia Active Condition [facility] Gastroesophageal reflux disease Active Condition [facility] Hypercholesterolemi a Active Condition [facility] Hypertension Active Condition [facility] Insomnia Active Condition [facility] Major depressive disorder Active Condition [facility] Neoplasm of prostate Active Condition [facility] Tinnitus Active Condition [facility] Mechanical ptosis of bilateral eyelids Active [...] include AK, SCC, BCC. Biopsy for diagnosis. [facility] Serology Prostate-specific Antigen (PSA) Elevated Active Condition After re-discus nj with Dr. Lam, will attempt trial of Levaquin x 4 wks and repeat PSA. Fu with Dr. Lam. [facility] Medications Combined list of outpatient medications from [...] EVERY EVENING ORAL ACTIVE TK ADAMES 2020 [facility] DIV[facility] Albert ATORVASTATI N CA 40MG TAB TAKE ONE-HALF TABLET BY MOUTH AT BEDTIME ORAL ACTIVE VELIA VAUGHAN 2016 [facility] CLONAZEPAM (CLONAZEPAM ), 0.5MG, TABLET, ORAL, TEVA [place], 500 ea. BOTTLE Active [id number] 2023 14 Pharmac y Data [facility] tion Service Facilit y CLONAZEPAM (CLONAZEPAM ), 0.5MG, TABLET, ORAL, TEVA [place], 500 ea. BOTTLE Active [id number] 2023 14 Pharmac y Data Transac tion Service Facilit y ESCITALOPRA M OXALATE 20MG TAB TAKE ONE TABLET BY MOUTH ONCE A DAY ORAL ACTIVE TK ADAMES 2020 [facility] N ESCITALOPRA M OXALATE 20MG TAB TAKE ONE TABLET BY MOUTH EVERY DAY ORAL ACTIVE VELIA VAUGHAN 2016 [facility] ESZOPICLONE (eszopiclon e), 3 MG, TABLET, ORAL, Storenvy, 100 ea. BOTTLE Active [id number] 4 2023 90 Pharmac y Data Transac tion Service Facilit y ESZOPICLONE 3MG TAB TAKE ONE TABLET BY MOUTH AT BEDTIME ORAL ACTIVE RICARDO REYES 2022 [facility] DIVBLAISE Albert LISINOPRIL 5MG TAB TAKE ONE-HALF TABLET BY MOUTH ONCE A DAY ORAL ACTIVE TK ADAMES 2020 [facility] DIV[facility] N LiSINOpril TAB TAKE BY MOUTH ACTIVE ABELARDO INTERIANO 2012 [facility] MELOXICAM 15MG TAB TAKE ONE TABLET BY MOUTH ONCE A DAY ORAL ACTIVE TK ADAMES 2020 [facility] N MELOXICAM 15MG TAB TAKE ONE TABLET BY MOUTH EVERY DAY ORAL ACTIVE VELIA VAUGHAN 2016 [facility] SIMVASTATIN TAB TAKE BY MOUTH AT BEDTIME ACTIVE ABELARDO INTERIANO 2012 [facility] TAMSULOSIN HCL 0.4MG CAP TAKE 1 CAPSULE BY MOUTH EVERY EVENING ORAL ACTIVE TK ADAMES 2020 [facility] DIVISIO N TAMSULOSIN HCL 0.4MG CAP TAKE ONE CAPSULE BY MOUTH EVERY DAY ORAL ACTIVE VELIA VAUGHAN 2016 [facility] MISCELLANE US USE FORTESTA 60MG DIRECTED EVERY DAY DIRECT ED ACTIVE VELIA VAUGHAN 2016 [facility] MISCELLANEO US USE LUNESTA DIRECTED DIRECT ED ACTIVE VELIA VAUGHAN 2016 [facility] Allergies, Adverse Reactions, Alerts Combined list of allergies from Department of Defense and Veterans Affairs facilities. It does not include entries that were removed or entered in error. Substance Category Reaction Severity Reaction type Status Date Reported Comments Source No Known Allergies Drug allergy (disorder) active 9 [facility] Chan [place] ([facility]) PERCOCET Propensity to adverse reactions to drug (finding) active 5 [facility] Immunizations Combined list of available immunizations from the Department of Defense and Veterans Affairs facilities. 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 N COVID Vaccine Pfizer 2020 208 [...] 30 mcg/0.3 mL dose 2020 ALUL, Pfizer [employer] [place] (PFR) Not Given COVID-19, mRNA, LNP-S, [...] PF, 30 mcg/0.3 mL dose 2020 PATKUS, [employer] [place] (PFR) Not Given COVID-19, mRNA, LNP-S, [...] injectable, quadrivalent- pf 2019 Chaz miramontes Arm [id number] 150 [employer] complet ed influenza , injectabl e, quadrival ent-pf 10/25/19 Given Ambulat ory Pharmac y Influenza, injectable, quadrivalent, preservative free 1 2019 Unknown, Provider [id number] 150 [employer] (SEQ) complet ed Influenza , injectabl e, quadrival ent, preservat heavenly free DoD influenza, injectable, quadrivalent- p[id number] [employer] complet ed influenza , injectabl e, quadrival ent-pf 07/25/18 Given Ambulat ory Pharmac y influenza, injectable, quadrivalent- pf 2017 [id number] complet ed influenza , injectabl e, quadrival ent-pf 07/25/18 Given Ambulat ory Pharmac y Influenza, injectable, quadrivalent, preservative free 1 2017 VIN DUEÑAS [id number] 150 [employer] (SEQ) complet ed Influenza , [...] YRS (HISTORICAL) 2016 88 complet ed [facility] TDAP 2016 115 complet ed [facility] influenza, seasonal, injectable-pf 2015 zzLef t Arm [id number] 140 [employer] complet ed influenza , seasonal, injectabl e-pf 07/30/16 Given Ambulat ory Pharmac y influenza, seasonal, injectable-pf 2015 [id number] complet ed influenza , seasonal, injectabl e-pf 07/30/16 Given Ambulat ory Pharmac y Influenza, seasonal, injectable, preservative free 1 2015 SID VILLAVICENCIO [id number] 140 [employer] (SEQ) complet ed Influenza , seasonal, injectabl e, preservat heavenly free DoD tetanus, diphtheria, acellular pertu is 2015 zzLef t Arm [id number] 115 [employer]Smith[employer] complet ed tetanus, diphtheri a, acellular pertussis 04/20/16 Given Ambulat ory Pharmac y tetanus, diphtheria, acellular pertu is 2015 [id number] 115 complet ed tetanus, diphtheri a, acellular pertussis 04/20/16 Given Ambulat ory Pharmac y tetanus toxoid, reduced diphtheria toxoid, and acellular pertu is vaccine, adsorbed 1 2015 YAZAN HIDALGO [id number] 115 [facility] (SKB) complet ed tetanus toxoid, reduced diphtheri a toxoid, and acellular pertussis vaccine, adsorbed DoD zoster vaccine live 2015 zzLef t Arm [id number] 121 [employer] complet ed zoster vaccine live 01/05/16 Given Ambulat ory Pharmac y zoster vaccine live 2015 [id number] complet ed zoster vaccine live 01/05/16 Given Ambulat ory Pharmac y zoster vaccine, live 1 2015 STEPHANIE FRAUSTO [id number] 121 Merck (MSD) complet ed zoster vaccine, live DoD influenza, seasonal, injectable-pf 2014 zzLef t Arm [id number] 140 [employer] complet ed influenza , seasonal, injectabl e-pf 07/18/15 Given Ambulat ory Pharmac y influenza, seasonal, injectable-pf 2014 [id number] 140 complet ed influenza , seasonal, injectabl e-pf 07/18/15 Given Ambulat ory Pharmac y Influenza, seasonal, injectable, preservative free 1 2014 YAZAN HIDALOG [id number] 140 [employer] [facility] [facility] (CSL) complet ed Influenza , seasonal, injectabl e, preservat heavenly free DoD FLU,3 YRS (HISTORICAL) 2011 88 complet ed [facility] influenza, seasonal, injectable-pf 2010 UNK [...] preservat heavenly free DoD anthrax vaccine 2009 [id number] [employer] complet ed anthrax vaccine 12/11/09 Given Ambulat ory Pharmac y anthrax vaccine 2009 [id number] [employer] complet ed anthrax vaccine 12/11/09 Given Ambulat ory Pharmac y anthrax vaccine 3 2009 [id number] [employer] [place] (MIP) complet ed anthrax vaccine DoD Novel influenza-H1N 1-09, injectable 2008 [id number] 1 127 complet ed Novel influenza -P6Z8-16, injectabl e 09/04/09 Given Ambulat ory Pharmac y Novel influenza-H1N 1-09, injectable 2008 [id number] 1 127 complet ed Novel influenza -N7D9-54, injectabl e 09/04/09 Given Ambulat ory Pharmac y Novel influenza-H1N 1-09, injectable 0 2008 [id number] 1 127 (AG) complet ed Novel influenza -I8S2-30, injectabl e DoD anthrax vaccine 2008 [id number] [employer] complet ed anthrax vaccine 06/12/09 Given Ambulat ory Pharmac y influenza virus vaccine,split 2008 [id number] 15 [employer] complet ed influenza virus vaccine,s plit 06/12/09 Given Ambulat ory Pharmac y influenza virus vaccine,split 2008 [id number] 15 [employer] complet ed influenza virus vaccine,s plit 06/12/09 Given Ambulat ory Pharmac y influenza virus vaccine, split virus (incl. purified surface antigen)-reti red CODE 0 2008 [id number] 15 [employer] [place] ([facility]) complet ed influenza virus vaccine, split virus (incl. purified surface antigen)- retired CODE DoD anthrax vaccine 2 2008 [id number] 24 [employer] [place] ([facility]) complet ed anthrax vaccine DoD anthrax vaccine 2008 [id number] [employer] complet ed anthrax vaccine 01/09/09 Given Ambulat ory Pharmac y anthrax vaccine 2008 [id number] [employer] complet ed anthrax vaccine 01/09/09 Given Ambulat ory Pharmac y anthrax vaccine 1 2008 [id number] [employer] [employer] [place] ([facility]) complet ed anthrax vaccine DoD typhoid Vi capsular polysaccharid e vac 2008 [id number] 101 [facility] complet ed typhoid Vi capsular polysacch aride vac 10/24/08 Given Ambulat ory Pharmac y yellow fever vaccine 2008 [id number] [employer] complet ed yellow fever vaccine 10/24/08 Given Ambulat ory Pharmac y typhoid Vi capsular polysaccharid e vac 2008 [id number] 101 [employer] complet ed typhoid Vi capsular polysacch aride vac 10/24/08 Given Ambulat ory Pharmac y yellow fever vaccine 2008 [id number] [employer] complet ed yellow fever vaccine 10/24/08 Given Ambulat ory Pharmac y yellow fever vaccine 0 2008 [id number] [employer] [place] ([facility]) complet ed yellow fever vaccine DoD typhoid Vi capsular polysaccharid e vaccine 2 2008 X2185-7 101 [facility] (HEALTH SYSTEM) complet ed typhoid Vi capsular polysacch aride vaccine DoD influenza virus vaccine,split 2007 [id number] 15 [employer] ne complet ed influenza virus vaccine,s plit 09/12/08 Given Ambulat ory Pharmac y poliovirus vaccine, live, oral 2007 UNK 02 [employer] comple t ed polioviru s vaccine, live, oral 09/12/08 Given Ambulat ory Pharmac y poliovirus vaccine, live, oral 2007 UNK 02 complet ed polioviru s vaccine, live, oral 09/12/08 Given Ambulat ory Pharmac y trivalent poliovirus vaccine, live, oral 0 2007 UNK 02 [employer] (MED) complet ed trivalent polioviru s vaccine, live, oral DoD influenza virus vaccine, split virus (incl. purified surface antigen)-reti red CODE 0 2007 [id number] [facility] ed influenza virus vaccine, split [...] DoD influenza virus vaccine, whole virus 2005 [id number] 16 Unknown complet ed influenza virus vaccine, whole virus 09/13/06 Given Ambulat ory Pharmac y influenza virus vaccine, whole virus 2005 [id number] 16 Unknown complet ed influenza virus vaccine, whole virus 09/13/06 Given Ambulat ory Pharmac y influenza virus vaccine, whole virus 3 2005 [id number] 16 Other (OTH) complet ed influenza virus [...] B vaccine DoD vaccinia (smallpox) vaccine 2002 [id number] 75 [facility] complet ed vaccinia (smallpox ) vaccine 12/06/02 Given Ambulat ory Pharmac y vaccinia (smallpox) vaccine 2002 [id number] 75 complet ed vaccinia (smallpox ) vaccine 12/06/02 Given Ambulat ory Pharmac y vaccinia (smallpox) vaccine 2 2002 [id number] [facility] complet ed vaccinia (smallpox ) vaccine DoD vaccinia (smallpox) vaccine 2002 [id number] 75 [facility] complet ed vaccinia (smallpox ) vaccine 11/30/02 Given Ambulat ory Pharmac y vaccinia (smallpox) vaccine 2002 [id number] 75 [facility] complet ed vaccinia (smallpox ) vaccine 11/30/02 Given Ambulat ory Pharmac y vaccinia (smallpox) vaccine 1 2002 [id number] 75 [employer] ([place]) complet ed vaccinia (smallpox ) vaccine DoD influenza virus vaccine, whole virus 2001 [id number] 16 Unknown complet ed influenza virus vaccine, whole virus 07/12/02 Given Ambulat ory Pharmac y influenza virus vaccine, whole virus 1 2001 [id number] 16 Other (OTH) complet ed influenza virus [...] ADM Date DC Date Status Disposition Source [facility](Ur ology Cl Be) OUTPATIENT [id number] High PSA CURRY NORTON 10/11 Released w/o Limitations [facility]( [facility] [id number] Possibl e Dupuytr en's contrac tion HELENE COYLE 10/20 Released w/o Limitations [facility]( Ortho General Cl FB) [facility](De rmatology Clinic [place]) OUTPATIENT [id number] Skin lesion forearm VICTORIANO DE LA CRUZ 11/09 Released w/o Limitations [facility](Ca rdiology Clinic [place]) OUTPATIENT [id number] Susan GARZA BERTIN Bo Mello 11/11 Released w/o Limitations [facility]( [facility]iol [facility]gy [facility] [place]) [facility](Or thopedic Clinic MG) OUTPATIENT [id number] SARAH BOATENG 12/26 Released w/o Limitations [facility]( Orthope dic Clinic [facility]) [facility](Or thopedic Clinic MG) OUTPATIENT [id number] pre-op appt. dos january 09 SARAH BOATENG 02/06 Released w/o Limitations [facility]( Orthope dic Clinic [facility]) [facility](Ph ysical Therapy (Techs)) OUTPATIENT [id number] BHARTI Patel 02/06 Released w/o Limitations [facility]( Physica l Therapy (Techs) ) [facility](Or thopedic Clinic MG) OUTPATIENT [id number] POP DOS 9May SARAH BOATENG 02/15 Released w/o Limitations [facility]( Orthope dic Clinic [facility]) [facility](Ph ysical Therapy MG) OUTPATIENT [id number] ZEINAB OSUNA 02/17 Released w/o Limitations [facility]( Physica l Therapy MG) [facility](Or thopedic Clinic MG) OUTPATIENT [id number] F/U scope SARAH BOATENG 04/24 Released w/o Limitations [facility]( Orthope dic Clinic [place]) [facility](Ne urology Clinic MG) OUTPATIENT [id number] AUGIE TAVAREZ 05/03 Released w/o Limitations [facility]( Neurolo gy Clinic [place]) [facility](Or thopedic Clinic [facility]) OUTPATIENT [id number] SARAH BOATENG 06/13 Released w/o Limitations [facility]( Orthope dic Clinic [facility]) [facility](Ca rdiology Clinic [place]) OUTPATIENT [id number] Bicuspi d aortic valve and mild aortic regurgi GABRIELA Williamson 11/07 Released w/o Limitations [facility]( [facility]gy [facility] [place]) [facility](Op hthalmolo gy Oculoplas tics [place]) OUTPATIENT [id number] Droppin g eye lid JACOB, FARZANEH R 11/10 Released w/o Limitations [facility]( Ophthal mology Oculopl astics [place]) [facility](De rmatology [facility] [place]) OUTPATIENT [id number] Small lesion back area rule out basal versus squamou s cells KONG FITZPATRICK 11/17 Released w/o Limitations [facility]( Dermato logy [facility] [place]) [facility](Or tho Hand Be) OUTPATIENT [id number] Bilater al Dupuytr en's contrac RSUS Kelley 11/30 Released w/o Limitations [facility]( Ortho Hand Be) [facility](Ur ology Cl Be) OUTPATIENT [id number] Persist ent PSA high level CAIN WHALEN W Released w/o Limitations [facility]( Urology Cl Be) [facility](Ur ology Cl Be) TELE CONSULT [id number] lab results CAIN WHALEN W 12/04 [facility]( Urology Cl Be) [facility](Ca rdiology Clinic [place]) TELE CONSULT [id number] Lab results GABRIELA PAEZ 12/25 [facility]( [facility]iol [facility]gy [facility] [place]) [facility](Or thopedic Clinic [place] ) OUTPATIENT [id number] Medial and lateral meniscu s tear ROBERT NAVA 12/25 Released w/o Limitations [facility]( [facility]ope [facility]) [facility](Op hthalmolo gy Oculoplas tics [place]) OUTPATIENT [id number] fu appt FARZANEH JACOB 01/01 Released w/o Limitations [facility]( Ophthal mology Oculopl astics [place]) [facility](Or thopedic [facility] [place] ) OUTPATIENT [id number] right knee RORO CARTER 01/14 Released with Work/Duty Limitations [facility]( [facility]ope [facility]) [facility](Ca [facility]diology [facility] [place]) TELE CONSULT [id number] Pt states he needs annual echo for [employer] GABRIELA PAEZ 03/12 [facility]( [facility]iol [facility]gy [facility] [place]) [facility](Ur ology Cl Be) TELE CONSULT [id number] CAIN WHALEN Etienne 03/28 [facility]( Urology Cl Be) [facility] [place]) TELE CONSULT [id number] F/U of lab results GABRIELA PAEZ 04/09 [facility]( [facility] [place]) [facility](Ca [facility]ology [facility] [place]) TELE CONSULT [id number] GABRIELA PAEZ 04/18 [facility]( [facility] [place]) [facility]ology [facility] [place]) OUTPATIENT [id number] 52 yo AD [employer] male with a h/o bicuspi d aortic valve TEIXEIRAMORGAN BARRIOS I 05/07 Released w/o Limitations [facility]( [facility] [place]) [facility](Ur ology Cl Be) OUTPATIENT [id number] sat pbx sedatio n CURRY NORTON 05/09 Released w/o Limitations [facility]( Urology Cl Be) [facility](Ur ology Cl Be) OUTPATIENT [id number] CURRY NORTON 05/09 Released w/o Limitations [facility]( Urology Cl Be) [facility](Ca [facility]ology [facility] [place]) OUTPATIENT [id number] F/U ON 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 GABRIELA PAEZ 05/21 Released w/o Limitations [facility]( [facility] [place]) [facility]ology [facility] [place]) OUTPATIENT [id number] F/U GABRIELA PAEZ 06/18 Released w/o Limitations [facility]( [facility] [place]) [facility](Ca [facility]ology [facility] [place]) OUTPATIENT [id number] GABRIELA PAEZ 06/18 Released w/o Limitations [facility]( [facility]iol [facility]gy [facility] [place]) [facility](Pa in Mgmt Clinic [place]) OUTPATIENT [id number] cervica l spondyl osis with radicul opathy JOSE RUVALCABA 07/01 Released w/o Limitations [facility]( [facility] [place]) [facility](Pa in Mgmt [facility] [place]) TELE CONSULT [id number] F/U - ALEXX MCKEON 07/02 [facility]( [facility] [place]) [facility](Ne urosurg Clinic [place]) OUTPATIENT [id number] 52y/o 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 Seen b KONG STTAON 07/09 Released with Work/Duty Limitations [facility]( Neurosu rg [facility] [place]) [facility](Pa in Mgmt [facility] [place]) OUTPATIENT [id number] C-[place] JOSE RUVALCABA 07/22 Released w/o Limitations [facility]( [facility] [place]) [facility](Pa in Mgmt [facility] [place]) TELE CONSULT [id number] F/U - C-[place] ALEXX JORDAN 07/23 [facility]( [facility] [place]) [facility](Ur ology Cl Be) OUTPATIENT [id number] fu per DANIEL Fajardo 08/02 Released w/o Limitations [facility]( Urology Cl Be) [facility](ZZ Neurology Cl WR) OUTPATIENT [id number] CERVICA L RADICUL OPATHY RAFAELWENDY Bety 08/12 Released w/o Limitations [facility]( ZZNeuro logy Cl WR) [facility](Ur ology Cl Be) OUTPATIENT [id number] SAT BX w/ SED., need Pre ABX for Valve DANIEL LAM 09/16 Released w/o Limitations [facility]( Urology Cl Be) [facility](Ur ology Cl Be) TELE CONSULT [id number] Prostat e biospy results DANIEL LAM 09/30 [facility]( Urology Cl Be) [facility](Op hthalmolo gy Comprehen sive [place]) OUTPATIENT [id number] JOSE ROBERTS 10/24 Released w/o Limitations [facility]( Ophthal mology Compreh ensive [place]) [facility](Op tometry Clinic [place]) OUTPATIENT [id number] routine TK WESTON 10/31 Released w/o Limitations [facility]( Optomet ry [facility] [place]) [facility](Ne urosurg Clinic [place]) OUTPATIENT [id number] F/U KONG STATON 11/05 Released w/o Limitations [facility]( Neurosu rg [facility] [place]) [facility](Ca rdiology [facility] [place]) OUTPATIENT [id number] follow- up JOSE CARTER 11/05 Released w/o Limitations [facility]( [facility]iol [facility]gy [facility] [place]) [facility](Ca rdiac Procedure [place]) OUTPATIENT [id number] Cardiac Cath MORGAN TEIXEIRA I 11/13 Released w/o Limitations [facility]( Cardiac Procedu re [place]) [facility](Op tometry [facility] [place]) OUTPATIENT [id number] move fr 1100 to 1415 KYLIE MONROYEsther Plummer 12/23 Released w/o Limitations [facility]( Optomet ry [facility] [place]) [facility](Op hthalmolo gy Ped Clinic [place]) OUTPATIENT [id number] new appt PADMINI KING 02/17 Released w/o Limitations [facility]( Ophthal [facility]ology Ped [facility] [place]) [facility](De rmatology Clinic [place]) OUTPATIENT [id number] WHO HAS A FAIR SKIN AND HAS SEVERAL [place] SARAH TESS 07/30 Released w/o Limitations [facility]( Dermato logy [facility] [place]) [facility](De rmatology [facility] [place]) TELE CONSULT [id number] PATH RESULTS PADMINI NEGRO 08/06 [facility]( D[facility]ato [facility]y [facility] [place]) [facility](Au diology Svc BE) OUTPATIENT [id number] 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 per pt SRI CARRASCO 08/12 Released w/o Limitations [facility]( Audiolo gy Svc BE) [facility](Ca rdiology [facility] [place]) OUTPATIENT [id number] follow- up KONG GIORDANO 08/12 Released w/o Limitations [facility]( [facility]iol [facility]gy [facility] [place]) [facility](Op hth Neur Cl BE) OUTPATIENT [id number] New appt MACEY POPE 09/19 Released w/o Limitations [facility]( Ophth Neur Cl BE) [facility](Ot olaryngol ogy Clinic [place]) OUTPATIENT [id number] appt in [facility] dropped from DEMETRIO MEDRANO 09/23 Released w/o Limitations [facility]( [facility]olary ngology [facility] [place]) [facility](Op hthalmolo gy Comprehen sive [place]) OUTPATIENT [id number] per BURTON Pelaez 09/30 Released w/o Limitations [facility]( Ophthal mology Compreh ensive [place]) [facility](Ca rdiology Clinic [place]) TELE CONSULT [id number] Test Results JOSE CARTER 10/16 [facility]( [facility]iol [facility]gy [facility] [place]) [facility](Ur ology Cl Be) OUTPATIENT [id number] ELEVATE D PSA SCOTT LARIOS GRUM 10/29 Released w/o Limitations [facility]( Urology Cl Be) [facility](Op hthalmolo gy Comprehen sive [place]) OUTPATIENT [id number] 242 sta fast vf and fu BURTON Miller 10/31 Released w/o Limitations [facility]( Ophthal mology Compreh ensive [place]) [facility](Op hth Neur Cl BE) OUTPATIENT [id number] fu appt- MACEY POPE 10/31 Released w/o Limitations [facility]( Ophth Neur Cl BE) [facility](Ot olaryngol ogy Clinic [place]) OUTPATIENT [id number] preop resid/g rant Nov septo/t DEMETRIO Ramirez 11/06 Released w/o Limitations [facility]( [facility]olary [facility]ology [facility] [place]) [facility](AP U Pre-Scree n Clinic [place]) OUTPATIENT [id number] BBF5 MARQUIS MO 11/06 Released w/o Limitations [facility]( AP[facility] Pre-Scr een [facility] [place]) [facility](Ot olaryngol ogy Clinic [place]) OUTPATIENT [id number] pop resid/s orensen Novo/t DEMETRIO Ramirez 11/24 Released w/o Limitations [facility]( [facility]ary [facility]ology [facility] [place]) [facility](Op hthalmolo gy Comprehen sive [place]) OUTPATIENT [id number] fu appt vf JOSE ROBERTS 12/08 Released w/o Limitations [facility]( Ophthal mology Compreh ensive [place]) [facility](Ur ology Cl Be) TELE CONSULT [id number] left one message at work about psa, good level but % free low, recheck 6 months SCOTT LARIOS OMERO 12/16 [facility]( Urology Cl Be) [facility](Ur ology Cl Be) TELE CONSULT [id number] lab results SCOTT LARIOS GABYJESSICA 12/19 [facility]( Urology Cl Be) [facility](Ca rdiology Clinic [place]) TELE CONSULT [id number] Rx refill TK MACDONALD 02/09 [facility]( [facility]iol [facility]gy [facility] [place]) [facility](Op hthalmolo gy Comprehen sive [place]) OUTPATIENT [id number] and HELENE ARTEAGA 05/28 Released w/o Limitations [facility]( Ophthal mology Compreh ensive [place]) [facility](Ph ysical Therapy [place]) OUTPATIENT [id number] MENDEZ DAVIS 06/15 Released w/o Limitations [facility]( Physica l Therapy [place]) [facility](Ph ysical Therapy [place]) OUTPATIENT [id number] TONI JORDAN 06/18 Released with Work/Duty Limitations [facility]( Physica l Therapy D[facility]aj) [facility](Ph ysical Therapy [place]) OUTPATIENT [id number] CHASIDY CESPEDES 06/22 Released w/o Limitations [facility]( Physica l Therapy [place]) [facility](Ph ysical Therapy [place]) OUTPATIENT [id number] CHASIDY CESPEDES 06/25 Released w/o Limitations [facility]( Physica l Therapy Dheeraj) [facility](Ph ysical Therapy [place]) OUTPATIENT [id number] TONI JORDAN 06/29 Released with Work/Duty Limitations [facility]( Physica l Therapy Dheeraj) [facility](Ph ysical Therapy [place]) OUTPATIENT [id number] CHASIDY CESPEDES 07/02 Released w/o Limitations [facility]( [facility]) [facility]) OUTPATIENT [id number] MENDEZ DAVIS 07/16 Released w/o Limitations [facility]( [facility]) [facility]) OUTPATIENT [id number] CHASIDY CESPEDES 07/20 Released w/o Limitations [facility]( [facility]) [facility]) OUTPATIENT [id number] TK ALAMO Cedric 07/27 Released w/o Limitations [facility]( [facility] Therapy [facility]) [facility]) OUTPATIENT [id number] follow up BANDAR LARIOSY GR 08/03 Released w/o Limitations [facility]( [facility]) [facility] [place]) TELE CONSULT [id number] Rx refill MAEGAN SÁNCHEZ 09/08 [facility] [place]) TELE CONSULT [id number] Request call back regardi ng elevate d psa and enlarge d prostat e. SCOTT LARIOS GR 09/16 [facility]( [facility]) [facility]) OUTPATIENT [id number] elevate d psa/enl arged prostat e LANG DELAROSA 09/17 Released w/o Limitations [facility]) [facility]) TELE CONSULT [id number] Needs informa tion over prostat e NERI NAIK V 09/17 [facility]erred [facility] Appointment [facility]) [facility] OUTPATIENT [id number] MENDEZ Thompson 09/23 Released w/o Limitations [facility]( [facility]) [facility] [place] OUTPATIENT [id number] F/U APPT MAEGAN SÁNCHEZ 09/30 Released w/o Limitations [facility] [place] [place] OUTPATIENT [id number] FAUSTINO BENOIT 10/12 Released w/o Limitations [facility] [place](FY 12Sports Med Prim Care Cl FB) OUTPATIENT [id number] SPORTS MEDICIN E - RIGHT SHOULDE R IMPINGE MENT ARON RAMON 10/23 [facility]ased w/o Limitations [facility] [place] [facility]) [facility] Practice Blue [facility]) TELE CONSULT [id number] triage MARY STEIN 01/25 [facility]( Family Practic e Blue [facility]) [facility] Silver Cl [facility]) OUTPATIENT [id number] sinus issue/h eadaHELENE Neville 01/25 [facility]ased w/o Limitations [facility]) TELE CONSULT [id number] Pt request ing PSA labs to be entered at [place]. Pt has follow appt 05 mar 2011 SCOTT LARIOS 02/10 [facility]( [facility]rology [facility]) [facility]) OUTPATIENT [id number] follow up SCOTT LARIOS 03/05 Released w/o Limitations [facility]( Urology Cl FB) [facility](Ca [facility]ology [facility] [place]) TELE CONSULT [id number] Rx refill MAEGAN SÁNCHEZ 04/30 [facility] [place](FY 12Sports Med Prim Care Cl FB) OUTPATIENT [id number] right shoulde r impinge ment RICARDO SANTILLAN 07/05 [facility]ased w/o Limitations [facility]( TI53Xhh rts Med Prim Care Cl FB) [facility](Op tometry Cl [facility]) OUTPATIENT [id number] eye exam BERTHA PERALTA 07/28 Released w/o Limitations [facility]( Optomet [facility]) [facility]) OUTPATIENT [id number] VICTORIANO DESHPANDE 08/03 Released w/o Limitations [facility] [place](Ny rmatology [facility]) TELE CONSULT [id number] VICTORIANO DESHPANDE 08/12 [facility] [place] OUTPATIENT [id number] BERTHA PERALTA 08/23 Released w/o Limitations [facility]( Optomet ry Cl [facility]) [facility](Or thopedics Hand Cl FB) OUTPATIENT [id number] MICHAEL MCHUGH CONTRAC JEROMY L HAND TARIK LT, KONG A 09/01 Released w/o Limitations [facility]( Orthope dics Hand Cl [facility]) [facility](Ca rdiolog Cl FB) OUTPATIENT [id number] FARZANEH CASTRO 09/06 Released w/o Limitations [facility]( Cardiol og Cl FB) [facility](Ca rdiolog Cl FB) OUTPATIENT [id number] FRANCES PALMER 09/06 Released w/o Limitations [facility]( Cardiol og Cl FB) [facility](Ca rdiolog Cl FB) OUTPATIENT [id number] GXT KIAH CURTIS Christiane 09/22 Released w/o Limitations [facility]( Cardiol og Cl [facility]) [facility](Op hth Compre FB) OUTPATIENT [id number] EYELIDS ; LACRIMA L SAC, DUCT, GLAND WENDY RAMIREZ 09/23 Released w/o Limitations [facility]( Ophth Compre FB) [facility](Op hthalmolo gy Oculoplas tics [place]) OUTPATIENT [id number] Per JESSENIA Morrissey 10/26 Released w/o Limitations [facility]( Ophthal mology Oculopl astics [place]) [facility](Or thopedics Hand Cl FB) OUTPATIENT [id number] LT HAND INJURY, REF BY AGNES JEFFRIES GAUTAM 11/01 Released w/o Limitations [facility]( Orthope dics Hand Cl [facility]) [facility](Ca rdiolog Cl FB) OUTPATIENT [id number] f/u FARZANEH CASTRO 11/02 Released w/o Limitations [facility]( Cardiol og Cl FB) [facility](Ur ology Cl FB) TELE CONSULT [id number] Pt req refill for 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@ [place] ..pt #[phone] SCOTT LARIOS 11/12 [facility]( Urology Cl [facility]) [facility](Fa jeanette Practice Gold Cl FB) OUTPATIENT [id number] lower pain LEON CISSE 11/18 Released w/o Limitations [facility]( Family Practic e Gold Cl FB) [facility](Fa jeanette Practice Gold Cl FB) TELE CONSULT [id number] results LEON CISSE 11/18 [facility]( Family Practic e Gold Cl FB) [facility](Fa jeanette Practice Blue FB) OUTPATIENT [id number] TORIE Villegas 11/18 Released w/o Limitations [facility]( Family Practic e Blue FB) [facility](Fa jeanette Practice Red FB) OUTPATIENT [id number] f/u epididy bola ESPINOSA-P DANDRE CHAPA 11/20 Released w/o Limitations [facility]( Family Practic e Red FB) [facility](Op [facility]thalmolo gy [facility] [place]) TELE CONSULT [id number] TK MANDUJANO 11/25 [facility]( Ophthal mology Compreh ensive [place]) [facility](Ca rdiolog Cl FB) OUTPATIENT [id number] Holter Monitor PIOTR MENDEZ 12/14 Released w/o Limitations [facility]( Cardiol og Cl FB) [facility](Or thopedics Hand Cl FB) OUTPATIENT [id number] Xiaflex injecti on/dariu AGNES Herrera 01/18 Released w/o Limitations [facility]( Orthope dics Hand Cl FB) [facility](Or thopedics Hand Cl FB) OUTPATIENT [id number] f/u xiaflex injecti on/depu AGNES Herrera 01/19 Released w/o Limitations [facility]( Orthope dics Hand Cl FB) [facility](Oc cup Therap FB) OUTPATIENT [id number] dariuyTK Skaggs 01/19 Released w/o Limitations [facility]( Occup Therap FB) [facility](Op tometry Cl FB) OUTPATIENT [id number] vf/phot os BERTHA PERALTA L 03/02 Released w/o Limitations [facility]( Optomet ry Cl FB) [facility](Or thopedics Hand Cl FB) OUTPATIENT [id number] F/U LT HAND AGNES BYRD 04/06 Released w/o Limitations [facility]( Orthope dics Hand Cl FB) [facility](Ca rdiolog Cl FB) TELE CONSULT [id number] julieth greggneo FARZANEH CASTRO 04/27 [facility]( Cardiol og Cl FB) [facility](AM H M[facility]B [place]) OUTPATIENT [id number] persist ent cough ADIEL JACKSON 05/20 Immediate Referral [facility]( [facility] [place]) [facility] [place] OUTPATIENT [id number] perscri ptionsroberta for special ty ОЛЬГА HUMPHRIES 06/03 Released w/o Limitations [facility]( [facility] [place]) [facility] [place]) TELE CONSULT [id number] Notes Entered by: RUSS MARS 16 Jun 2015 1438 ------- ------- ------- ------- -- Referra l ОЛЬГА Mistry 06/16 [facility]( [facility] [place]) [facility] [place]) OUTPATIENT [id number] f/u appt from all entered referra ceci and to hair current medicat ions ОЛЬГА HUMPHRIES 06/20 Released w/o Limitations [facility]( AMH [facility] [place]) [facility](IB BH CL [facility]) OUTPATIENT [id number] Initial RAVEN GRUBER 06/24 Released w/o Limitations [facility]( IB BH CL [facility]) [facility](Ur ol Prostate Center Be) OUTPATIENT [id number] BPH GOPAL PUCKETT 07/08 Released w/o Limitations [facility]( Urol Prostat e Center Be) [facility] [place]) OUTPATIENT [id number] BICUSPI D AORTIC VALVE MAEGAN SÁNCHEZ 07/10 Released w/o Limitations [facility] [place]) [facility]De [facility]matology [facility] [place]) OUTPATIENT [id number] skin evaluat ion SHEEBA TRAN 07/22 Released w/o Limitations [facility]( [facility] [place]) [facility](Ur Prostate Center Be) TELE CONSULT [id number] Notes Entered by: Law KAM 22 Jul 2015 0956 ------- ------- ------- ------- -- Pls call about PSA results GOPAL PUCKETT 07/22 [facility]( Urol Prostat e Center Be) [facility](Ne urosurg [facility]) OUTPATIENT [id number] CERVICA L RADICUL OPATHY C8 (C7-T1) TK LEO 07/30 [facility]ased w/o Limitations [facility] Be) TELE CONSULT [id number] Notes Entered by: Law KAM 04 Aug 2015 1505 ------- ------- ------- ------- -- Pls call about labs GOPAL PUCKETT 08/04 [facility]( Urol Prostat e Center Be) [facility](Fa jeanette [place] Gold FX) OUTPATIENT [id number] f/u r knee pain MIN WILKS 08/07 Released w/o Limitations [facility]( Family Practic e Gold FX) [facility](Op tometry [facility] [place]) OUTPATIENT [id number] eye exam DICK LAZCANO 08/19 Released w/o Limitations [facility]( [facility] [place]) [facility](Ne urosurg [facility]) OUTPATIENT [id number] Per TK Lua 08/20 Released w/o Limitations [facility]( [facility] [place]) [facility](Te le-Neuros urg Be) OUTPATIENT [id number] PT VISHAL Cohen 08/20 Released w/o Limitations [facility]( Tele-Ne urosurg Be) [facility](Pa in Mgmt [facility] [place]) OUTPATIENT [id number] Cervica l KOSTAS per HELENE Ann 08/21 Released w/o Limitations [facility]( [facility] [place]) [facility](Fa jeanette Practice Gold FX) OUTPATIENT [id number] rx renewal (per pt req) EUGENIOSHAYNA MIN H 09/23 Released w/o Limitations [facility]( Family Practic e Gold FX) [facility](Fa jeanette Practice Gold FX) OUTPATIENT [id number] f/u LILLIAN OLIVIA V 10/02 Released w/o Limitations [facility]( Family Practic e Gold FX) [facility](Ne urosurg [facility] [place]) OUTPATIENT [id number] F/up TK LEO Tony 10/08 Released w/o Limitations [facility]( [facility] [place]) [facility](Po diatry Clinic [place]) OUTPATIENT [id number] Pain in right ankle and joints of right foot GISELLA LU 10/09 Released w/o Limitations [facility]( [facility]iatr [facility] [place]) [facility](Or thotics Cl BE) OUTPATIENT [id number] Notes Entered by: QUINTON ALARCON 09 Oct 2015 1029 ------- ------- ------- ------- -- custom orthoti cs GISELLA SANTILLAN 10/09 Released w/o Limitations [facility]( Orthoti cs Cl BE) [facility](So cial Work [place]) OUTPATIENT [id number] initial LANCE YAP 10/10 Released w/o Limitations [facility]( Social Work [facility] [place] ) [facility](Fa jeanette Practice Gold FX) TELE CONSULT [id number] Notes Entered by: Christiane QUESADA 17 Oct 2015 0948 ------- ------- ------- ------- -- Relay Health Message LILLIAN OLIVIA V 10/17 [facility]( Family Practic e Gold FX) [facility](Op tometry [facility] [place]) OUTPATIENT [id number] HVF and IOP Check per LCDR DICK Mcgee 11/06 Released w/o Limitations [facility]( [facility] [place]) [facility](Sp ts Med Prim Care Cl FB) OUTPATIENT [id number] Pain in right knee ASHLYN RODRÍGUEZ P 11/11 Released w/o Limitations [facility]( Spts Med Prim Care Cl FB) [facility](Fa jeanette Practice [place] FX) OUTPATIENT [id number] CLINT Reilly 11/28 Released w/o Limitations [facility]( Family Practic e Green FX) [facility](Ur ol Prostate Center Be) TELE CONSULT [id number] Notes Entered by: YORDAN PUCKETT 02 Dec 2015 1709 ------- ------- ------- ------- -- Testost ershay replace ment GOPAL PUCKETT 12/01 [facility]( Urol Prostat e Center Be) [facility](So cial Work [place]) OUTPATIENT [id number] f/u LANCE YAP 12/08 Released w/o Limitations [facility]( Social Work [facility] [place] ) [facility](Op tometry [facility] [place]) OUTPATIENT [id number] HVF 24-2 OU W/ EYELID TAPING PER DICK WILDER 12/16 Released w/o Limitations [facility]( [facility] [place]) [facility](Ph ysical Therapy Cl Fx) OUTPATIENT [id number] Pain in right knee LIZZETTE BAIN E 12/21 Released w/o Limitations [facility]( Physica l Therapy Cl Fx) [facility](Ca [facility]diology [facility] [place]) OUTPATIENT [id number] follow- up TK RIVERA 12/24 Released w/o Limitations [facility]( [facility]iol [facility]gy [facility] [place]) [facility](Im munizatio n [place]) OUTPATIENT [id number] Notes Entered by: VINEET MILAN 05 Jan 2016 1024 ------- ------- ------- ------- -- yanick FRAUSTO SI 01/04 Released w/o Limitations [facility]( Immuniz ation [place] ) [facility](Ur ol Prostate Center Be) OUTPATIENT [id number] cyst AUGUSTA HENDERSON F 01/07 Released w/o Limitations [facility]( Urol Prostat e Center Be) [facility](Fa jeanette Practice Gold FX) OUTPATIENT [id number] flu symptom s OLIVIA, LILLIAN V 01/13 Released w/o Limitations [facility]( Family Practic e Gold FX) [facility](Fa jeanette Practice Gold FX) OUTPATIENT [id number] cough OLIVIA, LILLIAN V 01/15 Released w/o Limitations [facility]( Family Practic e Gold FX) [facility](Fa jeanette Practice Gold FX) OUTPATIENT [id number] Chest congest ion MIN WILKS H 01/16 Released w/o Limitations [facility]( Family Practic e Gold FX) [facility](Fa jeanette Practice Green FX) OUTPATIENT [id number] flu/ loss sense of taste and smell MARIVEL FUNG S 01/21 Released w/o Limitations [facility]( Family Practic e Green FX) [facility](Fa jeanette Practice Gold FX) OUTPATIENT [id number] poss flu OLIVIA, LILLIAN V 01/29 Released w/o Limitations [facility]( Family Practic e Gold FX) [facility](Op hthalmolo gy Comprehen [facility]) OUTPATIENT [id number] Dermato chalasi s of right upper eyelid BENJI AGUIRRE 01/29 Released w/o Limitations [facility]( Ophthal mology Compreh ensive [place]) [facility]( ol Prostate Center Be) OUTPATIENT [id number] 1 month f/u AUGUSTA HENDERSON F 02/02 Released w/o Limitations [facility]( Urol Prostat e Center Be) [facility](Op hthalmolo gy Oculoplas tics [place]) OUTPATIENT [id number] DERMATO CHALASI S KOLBY LOZADA 02/11 Released w/o Limitations [facility]( Ophthal mology Oculopl astics [place]) [facility](Ca rdiology [facility] [place]) TELE CONSULT [id number] TK HAMLIN 03/08 [facility]( [facility]iol [facility]gy [facility] [place]) [facility](Fa jeanette Practice Gold FX) OUTPATIENT [id number] anxiety OLIVIA, LILLIAN V 03/10 Released w/o Limitations [facility]( Family Practic e Gold FX) [facility] [place] OUTPATIENT [id number] Anosmia TK QUINONES Tony 03/23 Released w/o Limitations [facility]( [facility]olary [facility]ology [facility] [place]) [facility]) TELE CONSULT [id number] Notes Entered by: KERON BLOCK 23 Mar 2016 1335 ------- ------- ------- ------- -- Plz call re: testost ershay ck-or another order to ck. 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 LANCE Davis 04/01 Released w/o Limitations [facility]( Social Work [facility] [place] ) [facility] TELE CONSULT [id number] Notes Entered by: YORDAN PUCKETT 19 Apr 2016 1559 ------- ------- ------- ------- -- Rx request for testost ershay GOPAL PUCKETT 04/19 [facility] ) [facility]Fa [facility]) OUTPATIENT [id number] heart burn/f/ u per pt req LILLIAN OLIVIA V 04/20 [facility]ased w/o Limitations [facility] Family [facility]) [facility](Fa je[facility]ette Practice Gold FX) TELE CONSULT [id number] LILLIAN OLIVIA V 04/23 [facility]( Family Practic e Gold FX) [facility](Op hthalmolo gy O[facility]oplas tics [place]) OUTPATIENT [id number] pre surgica l visit, KOLBY LOZADA 05/25 Released w/o Limitations [facility]) TELE CONSULT [id number] Notes Entered by: YORDAN PUCKETT A 15 Jun 2016 0937 ------- ------- ------- ------- -- PSA elevati on GOPAL PUCKETT Jennifer 06/15 [facility]( Urol Prostat e Center [facility]) [facility](Fa jeanette Practice [facility] FX) OUTPATIENT [id number] f/u LILLIAN OLIVIA V 07/07 Released w/o Limitations [facility]( Family Practic e Gold FX) [facility]) OUTPATIENT [id number] f/u GOPAL PUCKETT Jennifer 07/16 Released w/o Limitations [facility]( Urol Prostat e Center Be) [facility](Op hthalmolo gy Oculoplas tics [place]) TELE CONSULT [id number] Notes Entered by: MARCIAL LOZADA 20 Jul 2016 1855 ------- ------- ------- ------- -- Pre-op questio ns KOLBY LOZADA 07/20 [facility]( Ophthal mology Oculopl astics [place]) [facility](Fa [place] [facility]) OUTPATIENT [id number] insLILLIAN Carlson V 07/23 Released w/o Limitations [facility]( Family Practic e [facility]) [facility](Op hthalmolo gy Oculoplas tics [place]) OUTPATIENT [id number] Notes Entered by: JESSENIA CHRISTIANSON 26 Jul 20162025 ------- ------- ------- ------- -- Op Report KOLBY LOZADA 07/27 Released w/o Limitations [facility]( Ophthal mology Oculopl astics [place]) [facility](Fa [place] Gold FX) TELE CONSULT [id number] Notes Entered by: Christiane QUESADA 29 Jul 2016 1256 ------- ------- ------- ------- -- LILLIAN SOUSA V 07/29 [facility]( Family Practic e Gold FX) [facility](Op hthalmolo gy Oculoplas tics [place]) OUTPATIENT [id number] 1 wk SEE KOLBY LOZADA 08/03 Released w/o Limitations [facility]( Ophthal mology Oculopl astics [place]) [facility](Fa [facility] Practice Gold FX) TELE CONSULT [id number] Notes Entered by: BROOKE HUNT 18 Aug 2016 1027 ------- ------- ------- ------- -- Rx refill LILLIAN OLIVIA V 08/18 [facility]( Family Practic e Gold FX) [facility](Op hthalmolo gy Oculoplas tics [place]) OUTPATIENT [id number] SEE RANKIN/SEBAS Miramontes KIERRAKOLBY 09/06 Released w/o Limitations [facility]( Ophthal mology Oculopl astics [place]) [facility](Ak [facility]diology [facility] [place]) OUTPATIENT [id number] Notes Entered by: SOHAIL CARDENAS 30 Sep 2016 0938 ------- ------- ------- ------- -- DECADE STUDY ENROLLM VITOR ALVARES 09/30 Released w/o Limitations [facility]( [facility]gy [facility] [place]) [facility]ology [facility] [place]) OUTPATIENT [id number] Notes Entered by: SOHAIL CARDENAS 30 Sep 2016 0939 ------- ------- ------- ------- -- ENDOTHE LIX ASSESSM VITOR ALVARES 09/30 Released w/o Limitations [facility]( [facility]gy [facility] [place]) [facility](Fa [facility] Practice Gold FX) OUTPATIENT [id number] Notes Entered by: ANITA WANG 02 Oct 2016 1315 ------- ------- ------- ------- -- walk-in -possib le strep?? NAKUL LAZCANO 10/02 Released w/o Limitations [facility]( Family Practic e [facility]) [facility](Ur ol Prostate Center Be) TELE CONSULT [id number] GOPAL PUCKETT 10/15 [facility]( Urol Prostat e Center Be) [facility](Fa jeanette Practice Gold FX) TELE CONSULT [id number] Notes Entered by: HAY MORALES 20 Oct 2016 0956 ------- ------- ------- ------- -- med.ref ill LILLIAN OLIVIA V 10/20 [facility]( Family Practic e [facility]) [facility](Fa jeanette Practice [facility]) OUTPATIENT [id number] insomni a fu (resche dule) LILLIAN OILVIA V 11/02 Released w/o Limitations [facility]( Family Practic e Gold FX) [facility]) OUTPATIENT [id number] anxiety , depress ion LANCE YAP 11/08 Released w/o Limitations [facility]( [facility] ) [facility](Fa jeanette Practice [facility]) TELE CONSULT [id number] Notes Entered by: CARY HERNANDEZ 09 Nov 2016 1747 ------- ------- ------- ------- -- [facility] LILLIAN Torres V 11/09 [facility]( Family Practic e [facility] FX) [facility](Fa jeanette Practice Gold FX) TELE CONSULT [id number] Notes Entered by: Christiane QUESADA 19 Nov 2016 0821 ------- ------- ------- ------- -- med LILLIAN Wooten V 11/19 [facility]( Family Practic e Gold FX) [facility](Fa jeanette Practice Gold FX) OUTPATIENT [id number] f/u on insomni a and anxiety LILLIAN OLIVIA V 12/06 Released w/o Limitations [facility]( Family Practic e Gold FX) [facility]) OUTPATIENT [id number] 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 Practice Gold FX) TELE CONSULT [id number] Notes Entered by: CARY HERNANDEZ 10 Dec 2016 1748 ------- ------- ------- ------- -- [facility] follow- up LILLIAN OLIVIA V 12/10 [facility]( Family Practic e Gold FX) [facility] [place]) TELE CONSULT [id number] LILLIAN OLIVIA V 12/17 [facility]( Family Practic e [place] ) [facility] Practice Gold FX) TELE CONSULT [id number] Notes Entered by: BROOKE HUNT 27 Dec 2016 1739 ------- ------- ------- ------- -- Derm LILLIAN Torres V 12/27 [facility]( Family Practic e Gold FX) [facility]) TELE CONSULT [id number] Notes Entered by: HUNTER PABON 07 Jan 2017 0851 ------- ------- ------- ------- -- cough/b mary is vs HAY MORALES 01/07 Referred for Appointment [facility]( [facility] ) [facility](Fa [facility] Practice Gold FX) OUTPATIENT [id number] cough LILLIAN OLIVIA V 01/08 Released w/o Limitations [facility]( Family Practic e Gold FX) [facility](Ur ol Prostate Center Be) OUTPATIENT [id number] f/u GOPAL PUCKETT 01/10 Released w/o Limitations [facility]( Urol Prostat e Center Be) [facility](Fa jeanette Practice Gold FX) OUTPATIENT [id number] LILLIAN OLIVIA V 01/21 Released w/o Limitations [facility]( Family Practic e Gold FX) [facility]) OUTPATIENT [id number] Actinic keratos is KVNG WOOD Elian 01/25 Released w/o Limitations [facility]( [facility]y [facility] [place]) [facility](Fa [facility] Practice Gold FX) OUTPATIENT [id number] EVA OLIVIAKATHY Gtz 03/15 Released w/o Limitations [facility]( Family Practic e Gold FX) [facility]) OUTPATIENT [id number] f/u LANCE YAP 03/29 Released w/o Limitations [facility]( [facility] ) [facility](Fa [facility] Practice Gold FX) TELE CONSULT [id number] Notes Entered by: CARY HERNANDEZ 01 Apr 20172053 ------- ------- ------- ------- -- [facility] follow- up CARY MIJARES 04/02 [facility]( Family Practic e [facility]) [facility] TELE CONSULT [id number] Notes Entered by: VALERIO THOMAS 02 May 2017 0933 ------- ------- ------- ------- -- Request ing medicat ion Fortest a-10mg. [facility]. GOPAL PUCKETT 05/02 [facility]) [facility]) TELE CONSULT [id number] Notes Entered by: VALERIO THOMAS 09 May 2017 1242 ------- ------- ------- ------- -- Request ing medicat ion Forgest a. [facility]. GOPAL PUCKETT 05/09 [facility]) [facility](Ca rdiology [facility]) OUTPATIENT [id number] Thoraci c aortic aneurys m, without rupture TK RIVERA 05/13 Released w/o Limitations [facility]( [facility]gy [facility] [place]) [facility](Fa jeanette Practice Gold FX) TELE CONSULT [id number] Notes Entered by: EDDA WONG 17 May 2017 1154 ------- ------- ------- ------- -- RX LILLIAN OLIVIA V 05/17 [facility]( Family Practic e [facility] FX) [facility]) TELE CONSULT [id number] Notes Entered by: Esther WAGNER 18 May 2017 1341 ------- ------- ------- ------- -- Patient Contact ed VIRI WAGNER 05/18 [facility]Fa jeanette Practice [facility] FX) OUTPATIENT [id number] follow up LILLIAN OLIVIA V 05/26 Released w/o Limitations [facility]( Family Practic e Gold FX) [facility]) TELE CONSULT [id number] Notes Entered by: Esther WAGNER 27 May 2017 0954 ------- ------- ------- ------- -- Schedul ed For A OC VIRI WAGNER 05/27 [facility]) TELE CONSULT [id number] Notes Entered by: Esther WAGNER 28 Jun 2017 0953 ------- ------- ------- ------- -- Reminde r Call For A Procedu re Appoint ment VIRI WAGNER 06/28 [facility](Fa jeanette Practice Gold FX) OUTPATIENT [id number] agustín miramontes in left hand at [facility] LILLIAN OLIVIA V 06/28 Released w/o Limitations [facility]( Family Practic e Gold FX) [facility](Fa jeanette Practice Gold FX) TELE CONSULT [id number] Notes Entered by: SILVIA TRAN 04 Jul 2017 1247 ------- ------- ------- ------- -- Med Refll LILLIAN OLIVIA V 07/04 [facility]( Family Practic e Gold FX) [facility](Or thopedics Hand Cl FB) OUTPATIENT [id number] Contrac ture, left hand DEMETRIO TERRY Esther 07/14 Released w/o Limitations [facility]( Orthope dics Hand Cl FB) [facility](Fa jeanette Practice [facility] FX) OUTPATIENT [id number] throat pain LILLIAN OLIVIA V 08/05 Released w/o Limitations [facility]( [facility]) [facility]) TELE CONSULT [id number] Notes Entered by: YORDAN PUCKETT 05 Aug 2017 1349 ------- ------- ------- ------- -- MRI results GOPAL PUCKETT 08/05 [facility]( [facility]) [facility]) OUTPATIENT [id number] mri guided bxp [address] 08/09 [facility]ased w/o Limitations [facility]( [facility]) [facility] jeanette Practice [facility] FX) TELE CONSULT [id number] Notes Entered by: CHAYO WIGGINS 27 Aug 2017 1222 ------- ------- ------- ------- -- medicat ion LILLIAN OLIVIA V 08/27 [facility]( [facility]) [facility]ette [facility] FX) TELE CONSULT [id number] Notes Entered by: SILVIA TRAN 29 Aug 2017 0939 ------- ------- ------- ------- -- Med Refill LILLIAN OLIVIA V 08/29 [facility]( [facility]) [facility]) OUTPATIENT [id number] hearing issues and audiolo gy referra l LILLIAN OLIVIA V 09/08 Released w/o Limitations [facility]( [facility]) [facility]) OUTPATIENT [id number] MRI Guided Biopsy [address] 09/15 Released w/o Limitations [facility]( [facility]) [facility](Ur ology Cl Be) TELE CONSULT [id number] [address] 09/22 [facility]( Urology Cl Be) [facility] [place]) OUTPATIENT [id number] [place] single thyroid nodule JAI WALKER Jennifer 09/22 Released w/o Limitations [facility]( Otolary [facility]ology [facility] a) [facility]) TELE CONSULT [id number] LILLIAN OLIVIA V 09/27 [facility] [place] ) [facility]) OUTPATIENT [id number] Multi-d [address] 10/31 Released w/o Limitations [facility]) [facility]Ma le [facility]/Sexua l [facility] Be) OUTPATIENT [id number] multi d NACHO OCASIO 10/31 Released w/o Limitations [facility]( Male Inf/Sex ual Health Be) [facility]) OUTPATIENT [id number] Notes Entered by: Esther LOPEZ 31 Oct 2017 1102 ------- ------- ------- ------- -- Multi-D iscipli georgettey Prostat e [facility] SOFIYA LOPEZ 10/31 [facility]ased w/[facility] Limitations [facility]) OUTPATIENT [id number] PROSTAT E CLINIC NERI AQUINO 10/31 Released w/o Limitations [facility]( Rad [facility]) [facility] [place]) TELE CONSULT [id number] Notes Entered by: Tony VELASQUEZ 31 Oct 2017 1432 ------- ------- ------- ------- -- PATIENT REQ ECHO - NO CONSULT IN SYSTEM ZOHREH GABRIEL 10/31 [facility]( Cardiol ogy [facility] a) [facility](Ur ol [facility]state [facility] ) TELE CONSULT [id number] Notes Entered by: YORDAN PUCKETT 07 Nov 2017 0754 ------- ------- ------- ------- -- Prostat e cancer GOPAL PUCKETT 11/07 [facility]( [facility]) [facility](Or thopedics Hand Cl FB) OUTPATIENT [id number] f/u dupuytr en's contrac ture on L hand ZIYAD MEIER 11/10 Released w/o Limitations [facility]( Orthope dics Hand Cl FB) [facility]([employer] FX) TELE CONSULT [id number] Notes Entered by: Christiane QUESADA 11 Nov 2017 0944 ------- ------- ------- ------- -- med renewal LILLIAN OLIVIA V 11/11 [facility]( [facility]) [facility](Or thopedics Hand Cl FB) OUTPATIENT [id number] injecti ons for Dupuytr ens contrac nitae ZIYAD MEIER 11/22 Released w/o Limitations [facility]( Orthope dics Hand Cl FB) [facility](Or thopedics Hand Cl FB) OUTPATIENT [id number] injecti on for Dupuytr ens ZIYAD MEIER 11/23 Released w/o Limitations [facility]( Orthope dics Hand Cl FB) [facility](Ot olaryngol [facility]gy [facility]) TELE CONSULT [id number] Notes Entered by: Bo AQUINO 30 Nov 2017 1823 ------- ------- ------- ------- -- Barium swallow results NACHO AQUINO 11/30 Medication Refill Forwarded [facility]( Otolary ngology [facility] a) [facility]([employer] FX) TELE CONSULT [id number] Notes Entered by: Christiane QUESADA 23 Dec 2017 1740 ------- ------- ------- ------- -- med renewal NIK VEANS Bety 12/23 [facility]( [facility]) [facility](Ur [facility] Be) TELE CONSULT [id number] Notes Entered by: YORDAN PUCKETT 27 Dec 2017 1229 ------- ------- ------- ------- -- lab results GOPAL PUCKETT 12/27 [facility]( [facility]) [facility](Or thopedics Hand Cl FB) OUTPATIENT [id number] f/u left hand ZIYAD MEIER 01/27 Released w/o Limitations [facility]( Orthope dics Hand Cl FB) [facility] [place]) OUTPATIENT [id number] NACHO GILLIS 01/31 Released w/o Limitations [facility]( [facility] [place] [facility]) [facility](Or thopedics Hand Cl FB) OUTPATIENT [id number] f/u injecti on ZIYAD MEIER 02/15 Released w/o Limitations [facility]( Orthope dics Hand Cl FB) [facility](Or thopedics Hand Cl FB) OUTPATIENT [id number] F/U ZIYAD MEIER 02/21 Released w/o Limitations [facility]( Orthope dics Hand Cl FB) [facility](Fa [facility]ette [facility]) OUTPATIENT [id number] feeling dizzy, high blood pressur e CORWIN LILLIAN V 02/23 Released w/o Limitations [facility]( [facility]) [facility](Ur [facility] Be) OUTPATIENT [id number] f/u [address] 03/06 Released w/o Limitations [facility]( [facility]) [facility](Fa je[facility]ette Practice [facility]) OUTPATIENT [id number] sinus infecti on, sore throat, lung congest ion, cough MIN WILKS 03/10 Released w/o Limitations [facility]( [facility]) [facility]) TELE CONSULT [id number] Notes Entered by: YORDAN PUCKETT 03 Apr 2018 1440 ------- ------- ------- ------- -- prostat e cancer GOPAL PUCKETT 04/03 [facility]( [facility]) [facility](Or thopedics Hand Cl FB) OUTPATIENT [id number] F/U Dupatri ashley normara JAMES CejaRICK Esther 04/04 Released w/o Limitations [facility]( Orthope dics Hand Cl FB) [facility]ette [facility] FX) TELE CONSULT [id number] Notes Entered by: EDDA WONG 18 May 2018 1715 ------- ------- ------- ------- -- RX LILLIAN OLIVIA V 05/18 [facility]( [facility]) [facility]) TELE CONSULT [id number] Notes Entered by: YORDAN PUCKETT 17 Aug 2018 0728 ------- ------- ------- ------- -- prostat e cancer GOPAL PUCKETT 08/17 [facility]( [facility]) [facility]) TELE CONSULT [id number] Notes Entered by: Christiane QUESADA 18 Aug 2018 1121 ------- ------- ------- ------- -- med LILLIAN Man V 08/18 [facility]( [facility]) [facility]) TELE CONSULT [id number] Notes Entered by: JOSE AGUILAR V 06 Sep 2018 1233 ------- ------- ------- ------- -- Med refill/ PE LILLIAN OLIVIA V 09/06 [facility](Ur ol Prostate Center Be) OUTPATIENT [id number] f/u prostat e ARIANAKATHRYN SALOMÓN 09/08 Released w/o Limitations [facility]( Urol Prostat e Center Be) [facility](Ca [facility]diology [facility] [place]) TELE CONSULT [id number] Notes Entered by: SANTOS DONG 11 Sep 2018 1326 ------- ------- ------- ------- -- FOR REGARDI NGT A MRI TEST RESULT. POC (CELL) THANK YOU NACHO GILLIS 09/11 [facility]) OUTPATIENT [id number] annual check up LILLIAN OLIVIA V 09/22 Released w/o Limitations [facility]( Family Practic e Gold FX) [facility](Ur ology Cl Be) TELE CONSULT [id number] 10/05 [facility]) [facility](Ur ol Prostate Center Be) OUTPATIENT [id number] 11/01 Released w/o Limitations [facility]( Urol Prostat e Center Be) [facility](Fa jeanette Practice [facility] FX) TELE CONSULT [id number] Notes Entered by: Christiane QUESADA 16 Nov 2018 1132 ------- ------- ------- ------- -- med refill LILLIAN OLIVIA V 11/16 [facility]) [facility](Fa jeanette Practice [facility] FX) OUTPATIENT [id number] wart treatme nt EVA OLIVIAHI V 12/01 [facility]ased w/o Limitations [facility]) [facility](Ph ys Therapy CL BE) OUTPATIENT [id number] Plantar fascial fibroma tosis per pt. SHERITA SHAVER P 01/11 Released w/o Limitations [facility]( Phys Therapy CL BE) [facility](De [facility]ology [facility] [place]) OUTPATIENT [id number] Actinic keratos is per pt DEMETRIO BOBBY N 01/15 Released w/o Limitations [facility]( [facility]ermato [facility]y [facility] [place] [facility]) [facility](Or thotics Cl BE) OUTPATIENT [id number] custom orthoti cs LANDEN PADMINI N 01/17 Released w/o Limitations [facility]( Orthoti cs Cl BE) [facility](Fa jeanette Practice [facility]) OUTPATIENT [id number] f/u plantar wart,Rx LILLIAN OLIVIA V 02/08 Released w/o Limitations [facility]( [facility]) [facility](Ph ysical Medicine Clinic Be) OUTPATIENT [id number] Pain in left foot MITZY, AGUSTO M 02/21 Released w/o Limitations [facility]( Physica l Medicin e Clinic Be) [facility](Po diatry Clinic [facility] ) OUTPATIENT [id number] Pain in unspeci fied ankle and joints of unspeci fied foot BI RODRIGUEZ 03/21 Released w/o Limitations [facility]( [facility]) [facility]state [facility] Be) OUTPATIENT [id number] 7 f/u b4 move [address] 03/26 Released w/o Limitations [facility]( Urol Prostat [facility] Be) [address] [place] [address] [facility] ([facility]Sco tt [facility] Tm Blue) OUTPATIENT [id number] just moved to area, meet PCM, discuss scripts , special ists needs LAW, JELLY D 05/29 Released w/o Limitations [address] [place] [address] [facility] ([facility])(S cott [facility] Blue) [address] [place] [address] [facility] ([facility])(Sco tt [facility] Tm Blue) OUTPATIENT [id number] 1 neck and arm pain/uc c/er refusal /[id number] AYAN MANNING 06/25 Released w/o Limitations [address] [place] [address] [facility] ([facility])(S cott [facility] Tm Blue) [address] [place] [address] [facility]Sco tt OF [facility] Tm Blue) OUTPATIENT [id number] 8 infecte d thumb, left hand JHOANA CASEY 07/11 Released w/o Limitations [address] [place] [address] [facility]S cott OF [facility] Tm Blue) [address] [place] [address] [facility]Sco tt [facility] Tm Blue) TELE CONSULT [id number] Notes Entered by: Jennifer CASEY 12 Jul 2019 1231 ------- ------- ------- ------- -- Lab results JHOANA CASEY 07/12 Other Not Elsewhere Classified [address] [place] [address] Group [facility]S cott [facility] Tm Blue) [address] [place] [address] [facility])(Sco tt [facility] Tm Blue) TELE CONSULT [id number] Notes Entered by: ADRIÁN GREGORY 24 Jul 2019 1147 ------- ------- ------- ------- -- Referra l Renewal / Law/ -GAY White 07/24 Other Not Elsewhere Classified [address] [place] [address] Group [facility]S [facility]m Blue) [address] [place] [address] Chan [facility]Sco tt [facility] Tm Blue) TELE CONSULT [id number] Notes Entered by: MARYANNE HAMILTON 06 Aug 2019 1328 ------- ------- ------- ------- -- Network Results SURG 9 SDG JHOANA CASEY 08/06 Other Not Elsewhere Classified [address] [place] [address] Group [facility]S [facility] Tm Blue) [address] [place] [address] Chan [facility]) TELE CONSULT [id number] 9 Notes Entered by: Jennifer CASEY 09 Aug 2019 1041 ------- ------- ------- ------- -- u/s results JHOANA CASEY 08/09 Other Not Elsewhere Classified [address] [place] [address] [facility])([facility] Blue) [address] [place] [address] [facility])(Sco tt [facility]) OUTPATIENT [id number] Lunesta Refill LAILACedric DARRELL T 08/17 Released w/o Limitations [address] [place] [address])([address] [facility] Blue) [address] [place] [address])(Sco tt [facility]) TELE CONSULT [id number] Notes Entered by: Law TRONCOSO 27 Aug 2019 0921 ------- ------- ------- ------- -- Network results Cardiol ogy 019 RADU LIRIANO 08/27 Referred for Appointment [address] [place] [address])([facility] Blue) [address] [place] [address])(Sco tt [facility]) TELE CONSULT [id number] Notes Entered by: AL BURKETT 05 Sep 2019 1035 ------- ------- ------- ------- -- Medical Refill Request / PCM BRUCedric TAMSULO SIN 0.4mg ATORVAS TATIN 20mg PEPPER OROZCO 09/05 Medication Refill Forwarded [address] [place] [address])([address] [facility] Blue) [address] [place] [address])(Sco tt [facility] Blue) OUTPATIENT [id number] renew scripts for atorvas tatin (20mg) escital opram (20 mg) by previou s PCM FARZANEH ROSENBERG 10/25 Released w/o Limitations [address] [place] [address] [facility])(S [facility] Tm Blue) [address] [place] [address] [facility])(Sco tt [facility]) TELE CONSULT [id number] 1 Notes Entered by: SAMANTHA ROSENBERG 26 Oct 2019 1514 ------- ------- ------- ------- -- Lab results SHAKIRAFARZANEH Soriano Esther 10/26 Released to Self [facility] [address] [place] [address] [facility])(S cott [facility] Tm Blue) [address] [place] [address] [facility])([facility]co tt [facility] Tm Blue) OUTPATIENT [id number] MARIOCedric AYAN Foy 12/02 Released w/o Limitations [address] [place] [address] Chan [facility]S cott [facility] Tm Blue) [address] [place] [address] [facility])(Sco tt [facility] Tm Blue) TELE CONSULT [id number] Notes Entered by: LIZ BARRERA 06 Feb 2020 1129 ------- ------- ------- ------- -- Referra l Request (appt 19 February)/Verenice w/ ABDULKADIR GRIFFIN (Jean) 02/05 Immediate Referral [address] [place] [address] Chan [facility]S [facility] Tm Blue) [address] [place] [address] [facility])(Sco tt [facility] Tm Blue) TELE CONSULT [id number] Notes Entered by: CHARMAINE CARTWRIGHT 28 Feb 2020 0925 ------- ------- ------- ------- -- Rx renewal - 6 days left - Law - - [facility] VINNY MERLOS 02/27 Referred for Appointment [address] [place] [address] Chan [facility] Tm Blue) [address] [place] [address] [facility])(Sco tt [facility] Tm Blue) OUTPATIENT [id number] In-Pers on - Med Renewal 205 RAYSA RAMIREZ 05/27 Released w/o Limitations [address] [place] [address] [facility]S cott [facility]) [address] [place] [address] [facility])(Sco tt [facility] Tm Blue) TELE CONSULT [id number] 1 Notes Entered by: LIZ BARRERA 21 Aug 2020 1431 ------- ------- ------- ------- -- STAT Referra matthews Renewal Request (appt Aug)/Mamadou fitzgeralds/ [phone] PEPPER OROZCO 08/21 Immediate Referral [address] [place] [address] [facility])(S cott [facility] Tm Blue) [address] [place] [address])(Sco tt [facility] Tm Blue) TELE CONSULT [id number] Notes Entered by: CHARMAINE CARTWRIGHT 01 Sep 2020 1515 ------- ------- ------- ------- -- Susan matthews renewal - Elvia - - tsg PEPPER OROZCO 09/01 Released to [facility] [address] [place] [address])(S cott [facility] Tm Blue) [address] [place] [address])(Sco tt [facility] Tm Blue) OUTPATIENT [id number] 5 In Person Appt - F/U on test results - [id number] [phone] TK DIAMOND 09/12 Released w/o Limitations [address] [place] [address] [facility])(S cott [facility] Tm Blue) [address] [place] [address])(Sco tt [facility] Tm Blue) TELE CONSULT [id number] Notes Entered by: LIZ BARRERA 22 Sep 2020 1458 ------- ------- ------- ------- -- COVID Test Request /Elvia / TK DIAMOND 09/[address] [place] [address])(S cott [facility] Tm Blue) [facility] Outpatient Encounter [id number] 11/17 [facility] Outpatient Encounter [id number] 12/06 [facility] Outpatient Encounter [id number] FANNIEBIMALJennifer 01/23 [facility] Outpatient Encounter [id number] [facility] Encounter [id number] 02/08 [facility] Outpatient Encounter [id number] 10/05 [facility] N [facility] Outpatient Encounter [id number] 10/05 [facility] N [facility] Outpatient Encounter [id number] 10/08 [facility] Outpatient Encounter [id number] 11/06 [facility] Procedures Combined list of: 1) Procedures from Department of [facility] Affairs facilities going back up to thelast 18 months, not all VA non-surgical procedures are included; 2) All procedures from the Department of Defense facilities. Procedure Procedure Type Code Date Perfomer Comments Sourc e OTHER TURBINECTOMY 12/25 [facility] OPHTHALMOLOGICAL SERVICES: MEDICAL EXAMINATION AND EVALUATION WITH INITIATION OF DIAGNOSTIC AND TREATMENT PROGRAM; COMPREHENSIVE, NEW PATIENT, 1 OR MORE VISITS 02/17 [facility] VISUAL FIELD EXAM,UNILAT/BI,INT ERP&REP;EXT EXM(EG,GOLDMANN VIS [...] FLD ANAL FULL THRSH 30-2,24-2, OR 30/60-2) 07/20 [facility] OPHTHALMOSCOPY, EXTENDED, WITH RETINAL DRAWING (EG, FOR RETINAL DETACHMENT, MELANOMA), WITH INTERPRETATION AND REPORT; INITIAL 07/12 [facility] SIGMOIDOSCOPY, FLEXIBLE; DIAGNOSTIC, INCLUDING COLLECTION OF SPECIMEN(S) [...] SHAVE, SCOOP, SAUCERIZE, CURETTE); SINGLE LESION 01/15 [facility] FOOT INSERT, REMOVABLE, MOLDED TO PATIENT MODEL, LONGITUDINAL ARCH SUPPORT, EACH 01/15 [facility] MANUAL THERAPY TECHNIQUES (EG, MOBILIZATION/ MANIPULATION, MANUAL LYMPHATIC DRAINAGE, MANUAL TRACTION), 1 OR MORE REGIONS, EACH 15 MINUTES 01/11 DoD DESTRUCTION (EG, LASER SURGERY, ELECTROSURGERY, CRYOSURGERY, CHEMOSURGERY, SURGICAL CURETTEMENT), OF BENIGN LESIONS OTHER THAN SKIN TAGS OR CUTANEOUS VASCULAR PROLIFERATIVE LESIONS; UP TO 14 LESIONS 12/01 [facility] SCREENING TEST OF VISUAL ACUITY, QUANTITATIVE, BILATERAL 09/22 [facility] INFLUENZA VIRUS VACCINE, QUADRIVALENT (IIV4), SPLIT VIRUS, PRESERVATIVE FREE, 0.5 ML DOSAGE, FOR INTRAMUSCULAR USE 07/25 [facility] INJECTION, ENZYME (EG, COLLAGENASE), PALMAR FASCIAL CORD (IE, DUPUYTREN'S CONTRACTURE) 02/15 [facility] ELECTROCARDIOGRAM, ROUTINE ECG WITH AT LEAST 12 LEADS; WITH INTERPRETATION AND REPORT 01/31 [facility] MANIPULATION, PALMAR FASCIAL CORD (IE, DUPUYTREN'S CORD), POST ENZYME INJECTION (EG, COLLAGENASE), SINGLE CORD 11/23 Do[facility] INJECTION, ENZYME (EG, COLLAGENASE), PALMAR FASCIAL CORD (IE, DUPUYTREN'S CONTRACTURE) 11/22 [facility] HEALTH&BEHAV ASSESSMENT (EG, HEALTH-FOC CLINICAL INTERVIEW, BEHAVIORAL OBSERVATIONS, PSYCHOPHYSICOLOGIC AL MONITOR, HEALTH-ORIENT QUESTIONNAIRES), EA 15 MIN [id number] W THE PATIENT; INIT ASSESSMENT 11/01 [facility] LARYNGOSCOPY, FLEXIBLE; DIAGNOSTIC 09/22 [facility] BIOPSY, PROSTATE; NEEDLE OR PUNCH, SINGLE OR MULTIPLE, ANY APPROACH 09/16 [facility] URINALYSIS; QUALITATIVE OR SEMIQUANTITATIVE, EXCEPT IMMUNOASSAYS 08/10 [facility] INFLUENZA VIRUS VACCINE, QUADRIVALENT (IIV4), SPLIT VIRUS, PRESERVATIVE FREE, 0.5 ML DOSAGE, FOR INTRAMUSCULAR USE 07/25 [facility] UNLISTED SPECIAL SERVICE, PROCEDURE OR REPORT 07/04 [facility] FINGER SPLINT, STATIC 06/27 [facility] ELECTROCARDIOGRAM, ROUTINE ECG WITH AT LEAST 12 LEADS; WITH INTERPRETATION AND REPORT 05/13 [facility] BRIEF EMOTIONAL/BEHAVIOR AL ASSESSMENT (EG, DEPRESSION INVENTORY, ATTENTION-DEFICIT/ HYPERACTIVITY DISORDER [ADHD] SCALE), WITH SCORING AND DOCUMENTATION, PER STANDARDIZED INSTRUMENT 04/01 [facility] HEALTH AND BEHAVIOR INTERVENTION, EACH 15 MINUTES, [id number]; INDIVIDUAL 03/29 [facility] DESTRUCT (EG, LASER SURGERY, ELECTROSURGERY, CRYOSURGERY, CHEMOSURGERY, SURGICAL CURETTEMENT), PREMALIGNANT LESIONS (EG, ACTINIC KERATOSES); 2ND THRU 14 LESIONS, EA (LIST SEP ADDITION CD, 1ST LESION) 01/25 [facility] HEALTH AND BEHAVIOR INTERVENTION, EACH 15 MINUTES, [id number]; INDIVIDUAL 12/10 Do[facility] HEALTH AND BEHAVIOR INTERVENTION, EACH 15 MINUTES, [id number]; INDIVIDUAL 11/08 DoD POSTOPERATIVE FOLLOW-UP VISIT, NORMALLY INCLUDED IN THE SURGICAL PACKAGE, INDICATE THAT EVALUATION & MANAGEMENT SERVICE WAS PERFORMED DURING A POSTOPERATIVE PERIOD REASON RELATED ORIGINAL PROCEDURE 09/06 DoD POSTOPERATIVE FOLLOW-UP VISIT, NORMALLY INCLUDED IN THE SURGICAL PACKAGE, INDICATE THAT EVALUATION & MANAGEMENT SERVICE WAS PERFORMED DURING A POSTOPERATIVE PERIOD REASON RELATED ORIGINAL PROCEDURE 08/03 [facility] INFLUENZA VIRUS VACCINE, TRIVALENT (IIV3), SPLIT VIRUS, PRESERVATIVE FREE, 0.5 ML DOSAGE, FOR INTRAMUSCULAR USE 08/02 DoD POSTOPERATIVE FOLLOW-UP VISIT, NORMALLY INCLUDED IN THE SURGICAL PACKAGE, INDICATE THAT EVALUATION & MANAGEMENT SERVICE WAS PERFORMED DURING A POSTOPERATIVE PERIOD REASON RELATED ORIGINAL PROCEDURE 07/26 [facility] UNLISTED SPECIAL SERVICE, PROCEDURE OR REPORT 07/26 [facility] OPHTHALMOLOGICAL SERVICES: MEDICAL EXAMINATION AND EVALUATION, WITH INITIATION OR CONTINUATION OF DIAGNOSTIC AND TREATMENT PROGRAM; INTERMEDIATE, ESTABLISHED PATIENT 05/25 [facility] TETANUS, DIPHTHERIA TOXOIDS AND ACELLULAR PERTUSSIS VACCINE (TDAP), WHEN ADMINISTERED TO INDIVIDUALS 7 YEARS OR OLDER, FOR INTRAMUSCULAR USE 04/20 [facility] HEALTH AND BEHAVIOR INTERVENTION, EACH 15 MINUTES, [id number]; INDIVIDUAL 04/01 DoD OPHTHALMOLOGICAL SERVICES: MEDICAL EXAMINATION AND EVALUATION, WITH INITIATION OR CONTINUATION OF DIAGNOSTIC AND TREATMENT PROGRAM; INTERMEDIATE, ESTABLISHED PATIENT 02/11 [facility] OPHTHALMOLOGICAL SERVICES: MEDICAL EXAMINATION AND EVALUATION, WITH INITIATION OR CONTINUATION OF DIAGNOSTIC AND TREATMENT PROGRAM; COMPREHENSIVE, ESTABLISHED PATIENT, 1 OR MORE VISITS 01/25 [facility] ELECTROCARDIOGRAM, ROUTINE ECG WITH AT LEAST 12 LEADS; WITH INTERPRETATION AND REPORT 01/21 [facility] IMMUNIZATION ADMINISTRATION (INCLUDES PERCUTANEOUS, INTRADERMAL, SUBCUTANEOUS, OR INTRAMUSCULAR INJECTIONS); 1 VACCINE (SINGLE OR COMBINATION VACCINE/TOXOID) 01/04 [facility] ELECTROCARDIOGRAM, ROUTINE ECG WITH AT LEAST 12 LEADS; WITH INTERPRETATION AND REPORT 12/24 [facility] THERAPEUTIC PROCEDURE, 1 OR MORE AREAS, EACH 15 MINUTES; THERAPEUTIC EXERCISES TO DEVELOP STRENGTH AND ENDURANCE, RANGE OF MOTION AND FLEXIBILITY 12/21 [facility] VISUAL FIELD EXAM,UNILAT/BI,INT ERP&REP;EXT EXM(EG,GOLDMANN VIS FLD,AT LEAST 3 ISOP PLOT&STAT DET W/IN MARKUS 30DEG/QUANT,AUTO THRSH MICHAEL,OCT G-1,32/42,HUMP VIS FLD ANAL FULL THRSH 30-2,24-2, OR 3060-2) 12/16 [facility] HEALTH AND BEHAVIOR INTERVENTION, EACH 15 MINUTES, [id number]; INDIVIDUAL 12/08 [facility] OPHTHALMOLOGICAL SERVICES: MEDICAL EXAMINATION AND EVALUATION, WITH INITIATION OR CONTINUATION OF DIAGNOSTIC AND TREATMENT PROGRAM; COMPREHENSIVE, ESTABLISHED PATIENT, 1 OR MORE VISITS 11/06 [facility] HEALTH&BEHAV ASSESSMENT (EG, HEALTH-FOC CLINICAL INTERVIEW, BEHAVIORAL OBSERVATIONS, PSYCHOPHYSICOLOGIC AL MONITOR, HEALTH-ORIENT QUESTIONNAIRES), EA 15 MIN [id number] W THE PATIENT; INIT ASSESSMENT 10/10 [facility] FOOT INSERT, REMOVABLE, MOLDED TO PATIENT MODEL, LONGITUDINAL ARCH SUPPORT, EACH 10/09 [facility] FLUOROSCOPIC GUIDANCE & LOCALIZATION OF NEEDLE OR CATHETER TIP FOR SPINE/PARASPINOUS DIAG/THERAPEUTIC INJECTION PROCEDURES (EPIDURAL/SUBARACH NOID) (LIST SEPARATELY IN ADD TO CODE FOR PRIMARY PROC) 08/21 [facility] ECHOCARDIOGRAPHY,T CYDNEYSTHORACIBayron,REAL- TIME W IMAGE DOCUMENTATION (2D),INCLUDES M-MODE RECORDING,WHEN PERFORMED,COMPLETE ,WITH SPECTRAL DOPPLER ECHOCARDIOGRAPHY,A ND W COLOR FLOW DOPPLER ECHOCARDIOGRAPHY 08/21 [facility] THERAPEUTIC PROCEDURE, 1 OR MORE AREAS, EACH 15 MINUTES; THERAPEUTIC EXERCISES TO DEVELOP STRENGTH AND ENDURANCE, RANGE OF MOTION AND FLEXIBILITY 08/20 [facility] DETERMINATION OF REFRACTIVE STATE 08/19 [facility] DESTRUCT (EG, LASER SURGERY, ELECTROSURGERY, CRYOSURGERY, CHEMOSURGERY, SURGICAL CURETTEMENT), PREMALIGNANT LESIONS (EG, ACTINIC KERATOSES); 2ND THRU 14 LESIONS, EA (LIST SEP ADDITION CD, 1ST LESION) 07/22 [facility] INFLUENZA VIRUS VACCINE, TRIVALENT (IIV3), SPLIT VIRUS, PRESERVATIVE FREE, 0.5 ML DOSAGE, FOR INTRAMUSCULAR USE 07/18 [facility] ELECTROCARDIOGRAM, ROUTINE ECG WITH AT LEAST 12 LEADS; WITH INTERPRETATION AND REPORT 07/10 [facility] MEASUREMENT OF POST-VOIDING RESIDUAL URINE AND/OR BLADDER CAPACITY BY ULTRASOUND, NON-IMAGING 07/08 [facility] BRIEF EMOTIONAL/BEHAVIOR AL ASSESSMENT (EG, DEPRESSION INVENTORY, ATTENTION-DEFICIT/ HYPERACTIVITY DISORDER [ADHD] SCALE), WITH SCORING AND DOCUMENTATION, PER STANDARDIZED INSTRUMENT 06/24 [facility] TELE ASSESS & MGT SRV PROV QUAL NONPHYS HLTH CARE PRO TO EST PAT,PARENT,GUARD NOT ORIG REL ASSESS & MGT SRV PROV W/IN PREV 7 DAYS NOR LEAD ASSESS & MGT SRV/PX W/IN NXT 24 HR/SOON APT;5-10 MIN MED DIS 06/16 [facility] ELECTROCARDIOGRAM, ROUTINE ECG WITH AT LEAST 12 LEADS; WITH INTERPRETATION AND REPORT 05/21 [facility] THERAPEUTIC, PROPHYLACTIC, OR DIAGNOSTIC INJECTION (SPECIFY SUBSTANCE OR DRUG); SUBCUTANEOUS OR INTRAMUSCULAR 04/07 [facility] VISUAL FIELD EXAM,UNILAT/BI,INT ERP&REP;EXT EXM(EG,GOLDMANN VIS FLD,AT LEAST 3 ISOP PLOT&STAT DET W/IN MARKUS 30DEG/QUANT,AUTO THRSH MICHAEL,OCT G-1,32/42,HUMP VIS FLD ANAL FULL THRSH 30-2,24-2, OR 30/60-2) 03/02 [facility] APPLICATION OF FINGER SPLINT; STATIC 01/19 [facility] TOOL CRIB MANAGER ELECTROCARDIOGRAPH IC RECORDING UP TO 48 HOUR,CONT RHYTHM RECORDING & STORAGE;INCLUD RECORDING,SCANNING ANAL W REPORT,REVIEW &INTERPRETATION,A PHYSICIAN/OTHER QUALIFIED HEALTH CAMP TENDER 12/14 [facility] THERAPEUTIC, PROPHYLACTIC, OR DIAGNOSTIC INJECTION (SPECIFY SUBSTANCE OR DRUG); SUBCUTANEOUS OR INTRAMUSCULAR 11/18 [facility] ELECTROCARDIOGRAM, ROUTINE ECG WITH AT LEAST 12 LEADS; WITH INTERPRETATION AND REPORT 11/02 [facility] EXTERNAL OCULAR PHOTOGRAPHY WITH INTERPRETATION AND REPORT FOR DOCUMENTATION OF MEDICAL PROGRESS (EG, CLOSE-UP PHOTOGRAPHY, SLIT LAMP PHOTOGRAPHY, GONIOPHOTOGRAPHY, STEREO-PHOTOGRAPHY ) 10/26 [facility] OPHTHALMOLOGICAL SERVICES: MEDICAL EXAMINATION AND EVALUATION WITH INITIATION OF DIAGNOSTIC AND TREATMENT PROGRAM; INTERMEDIATE, NEW PATIENT 09/23 [facility] CARDIOVASCULAR STRESS TEST USING MAXIMAL OR SUBMAXIMAL TREADMILL OR BICYCLE EXERCISE,CONTINUOU S ELECTROCARDIOGRAPH IC MONITORING,AND/OR PHARMACOLOGICAL STRESS;W SUPERVISION,INTERP RETATION AND REPORT 09/22 [facility] ECHOCARDIOGRAPHY,T JENNIFERHORACIC,REAL- TIME W IMAGE DOCUMENTATION (2D),INCLUDES M-MODE RECORDING,WHEN PERFORMED,COMPLETE ,WITH SPECTRAL DOPPLER ECHOCARDIOGRAPHY,A ND W COLOR FLOW DOPPLER ECHOCARDIOGRAPHY 09/06 [facility] ELECTROCARDIOGRAM, ROUTINE ECG WITH AT LEAST 12 LEADS; WITH INTERPRETATION AND REPORT 09/06 [facility] SCANNING COMPUTERIZED OPHTHALMIC DIAGNOSTIC IMAGING, POSTERIOR SEGMENT, WITH INTERPRETATION AND REPORT, UNILATERAL OR BILATERAL; OPTIC NERVE 08/23 [facility] BIOPSY OF SKIN, SUBCUTANEOUS TISSUE AND/OR MUCOUS MEMBRANE (INCLUDING SIMPLE CLOSURE),UNLESS OTHERWISE LISTED (SEPARATE PROCEDURE); EACH SEPARATE/ADD LESION (LIST SEP IN ADD TO CODE FOR PRIMARY PROC) 08/03 [facility] DETERMINATION OF REFRACTIVE STATE 07/28 [facility] ULTRASONIC GUIDANCE FOR NEEDLE PLACEMENT (EG, BIOPSY, ASPIRATION, INJECTION, LOCALIZATION DEVICE), IMAGING SUPERVISION AND INTERPRETATION 07/05 [facility] TELE ASSESS & MGT SRV PROV QUAL NONPHYS HLTH CARE PRO TO EST PAT,PARENT,GUARD NOT ORIG REL ASSESS & MGT SRV PROV W/IN PREV 7 DAYS NOR LEAD ASSESS & MGT SRV/PX W/IN NXT 24 HR/SOON APT;5-10 MIN MED DIS 01/25 [facility] ARTHROCENTESIS, ASPIRATION AND/OR INJECTION, MAJOR JOINT OR BURSA (EG, SHOULDER, HIP, KNEE, SUBACROMIAL BURSA); WITHOUT ULTRASOUND GUIDANCE 10/23 [facility] ECHOCARDIOGRAPHY, TRANSTHORACIC, REAL-TIME WITH IMAGE DOCUMENTATION (2D), INCLUDES M-MODE RECORDING, WHEN PERFORMED, COMPLETE, WITHOUT SPECTRAL OR COLOR DOPPLER ECHOCARDIOGRAPHY 10/12 [facility] ELECTROCARDIOGRAM, ROUTINE ECG WITH AT LEAST 12 LEADS; WITH INTERPRETATION AND REPORT 09/30 [facility] PHYSICAL THERAPY RE-EVALUATION 09/23 [facility] APPLICATION OF [...] MORE AREAS; IONTOPHORESIS, EACH 15 MINUTES 06/29 [facility] THERAPEUTIC PROCEDURE, 1 OR MORE AREAS, EACH 15 MINUTES; THERAPEUTIC EXERCISES TO DEVELOP STRENGTH AND ENDURANCE, RANGE OF MOTION AND FLEXIBILITY 06/25 [facility] APPLICATION OF A MODALITY TO 1 OR MORE AREAS; IONTOPHORESIS, EACH 15 MINUTES 06/22 [facility] APPLICATION OF A MODALITY TO 1 OR MORE AREAS; IONTOPHORESIS, EACH 15 MINUTES 06/18 [facility] PHYSICAL THERAPY EVALUATION 06/15 [facility] DETERMINATION OF REFRACTIVE STATE 05/28 [facility] SCANNING COMPUTERIZED OPHTHALMIC DIAGNOSTIC IMAGING, POSTERIOR SEGMENT, (EG, SCANNING LASER) WITH INTERPRETATION AND REPORT, UNILATERAL 12/08 [facility] POSTOPERATIVE FOLLOW-UP VISIT, NORMALLY INCLUDED IN THE SURGICAL PACKAGE, INDICATE THAT EVALUATION & MANAGEMENT SERVICE WAS PERFORMED DURING A POSTOPERATIVE PERIOD REASON RELATED ORIGINAL PROCEDURE 11/24 [facility] UNLISTED SPECIAL SERVICE, PROCEDURE OR REPORT 11/19 [facility] ELECTROCARDIOGRAM, ROUTINE ECG WITH AT LEAST 12 LEADS; TRACING ONLY, WITHOUT INTERPRETATION AND REPORT 11/06 [facility] OPHTHALMOLOGICAL SERVICES: MEDICAL EXAMINATION AND EVALUATION, WITH INITIATION OR CONTINUATION OF DIAGNOSTIC AND TREATMENT PROGRAM; INTERMEDIATE, ESTABLISHED PATIENT 10/31 [facility] OPHTHALMIC ULTRASOUND, ECHOGRAPHY, DIAGNOSTIC; CORNEAL PACHYMETRY, UNILATERAL OR BILATERAL (DETERMINATION OF CORNEAL THICKNESS) 10/31 [facility] OPHTHALMIC ULTRASOUND, ECHOGRAPHY, DIAGNOSTIC; CORNEAL PACHYMETRY, UNILATERAL OR BILATERAL (DETERMINATION OF CORNEAL THICKNESS) 09/30 [facility] EXTERNAL OCULAR PHOTOGRAPHY WITH INTERPRETATION AND REPORT FOR DOCUMENTATION OF MEDICAL PROGRESS (EG, CLOSE-UP PHOTOGRAPHY, SLIT LAMP PHOTOGRAPHY, GONIOPHOTOGRAPHY, STEREO-PHOTOGRAPHY ) 09/19 [facility] ELECTROCARDIOGRAM, ROUTINE ECG WITH AT LEAST 12 LEADS; WITH INTERPRETATION AND REPORT 08/12 [facility] COMPREHENSIVE AUDIOMETRY THRESHOLD EVALUATION AND SPEECH RECOGNITION (41118 AND 06033 COMBINED) 08/12 [facility] DESTRUCTION (EG, LASER SURGERY, ELECTROSURGERY, CRYOSURGERY, CHEMOSURGERY, SURGICAL CURETTEMENT), OF BENIGN LESIONS OTHER THAN SKIN TAGS OR CUTANEOUS VASCULAR PROLIFERATIVE LESIONS; UP TO 14 LESIONS 07/30 [facility] SENSORIMOTOR EXAMINATION WITH MULTIPLE MEASUREMENTS OF OCULAR DEVIATION (EG, RESTRICTIVE OR PARETIC MUSCLE WITH DIPLOPIA) WITH INTERPRETATION AND REPORT (SEPARATE PROCEDURE) 02/17 [facility] INFECTIOUS AGENT ANTIGEN DETECTION BY IMMUNOASSAY WITH DIRECT OPTICAL (IE, VISUAL) OBSERVATION; STREPTOCOCCUS, GROUP A 01/13 [facility] FITTING OF SPECTACLES, EXCEPT FOR APHAKIA; BIFOCAL 12/23 [facility] IMAGING SUPERVISION, INTERPRETATION AND REPORT FOR INJECTION PROCEDURE(S) DURING CARDIAC CATH; PULMONARY ANGIOGRAPHY, AORTOGRAPHY, AND/OR SELECTIVECORONARY ANGIOGRAPHY INC VENOUS BYPASS GRAFTS 11/13 [facility] ELECTROCARDIOGRAM, ROUTINE ECG WITH AT LEAST 12 LEADS; WITH INTERPRETATION AND REPORT 11/05 [facility] SCANNING COMPUTERIZED OPHTHALMIC DIAGNOSTIC IMAGING, POSTERIOR SEGMENT, (EG, SCANNING LASER) WITH INTERPRETATION AND REPORT, UNILATERAL 10/31 [facility] OPHTHALMOSCOPY, EXTENDED, WITH RETINAL DRAWING (EG, FOR RETINAL DETACHMENT, MELANOMA), WITH INTERPRETATION AND REPORT; INITIAL 10/24 [facility] ULTRASONIC GUIDANCE FOR NEEDLE PLACEMENT (EG, BIOPSY, ASPIRATION, INJECTION, LOCALIZATION DEVICE), IMAGING SUPERVISION AND INTERPRETATION 09/16 [facility] NERVE CONDUCTION, AMPLITUDE AND LATENCY/VELOCITY STUDY, EACH NERVE; SENSORY 08/12 [facility] EDUCATION &TRAINING, PATIENT SELF-MGT QUALIFIED, NONPHYSICIAN HEALTH CAMP TENDER USING STDIZED CURRICULUM, [id number] W THE PATIENT (COULD INCL CAREGIVER/FAMILY) EA 30 MIN; INDIVIDUAL PATIENT 07/23 [facility] FLUOROSCOPIC GUIDANCE & LOCALIZATION OF NEEDLE OR CATHETER TIP FOR SPINE/PARASPINOUS DIAG/THERAPEUTIC INJECTION PROCEDURES (EPIDURAL/SUBARACH NOID) (LIST SEPARATELY IN ADD TO CODE FOR PRIMARY PROC) 07/22 [facility] NURSING ASSESSMENT/EVALUAT ION 07/02 [facility] INJECTION(S); SINGLE OR MULTIPLE TRIGGER POINT(S), 1 OR 2 MUSCLE(S) 07/01 [facility] THERAPEUTIC, PROPHYLACTIC OR DIAGNOSTIC INJECTION (SPECIFY SUBSTANCE OR DRUG); SUBCUTANEOUS OR INTRAMUSCULAR 06/24 [facility] ELECTROCARDIOGRAM, ROUTINE ECG WITH AT LEAST 12 LEADS; WITH INTERPRETATION AND REPORT 05/21 [facility] DOPPLER ECHOCARDIOGRAPHY, PULSED WAVE AND/OR CONTINUOUS WAVE WITH SPECTRAL DISPLAY (LIST SEPARATELY IN ADDITION TO CODES FOR ECHOCARDIOGRAPHIC IMAGING); COMPLETE 05/07 [facility] VISUAL FIELD EXAM,UNILAT/BI,INT ERP&REP;EXT EXM(EG,GOLDMANN VIS FLD,AT LEAST 3 ISOP PLOT&STAT DET W/IN MARKUS 30DEG/QUANT,AUTO THRSH MICHAEL,OCT G-1,32/42,HUMP VIS FLD ANAL FULL THRSH 30-2,24-2, OR 30/60-2) 01/01 [facility] HEEL, SACH CUSHION TYPE 12/25 [facility] URINALYSIS, BY DIP STICK OR TABLET REAGENT FOR BILIRUBIN, GLUCOSE, HEMOGLOBIN, KETONES, LEUKOCYTES, NITRITE, PH, PROTEIN, SPEC GRAVITY, UROBILINOGEN, ANY NUMBER OF CONSTITUENTS; W/O MICRO, AUTOMATED [facility] DESTRUCTION (EG, LASER SURGERY, ELECTROSURGERY, CRYOSURGERY, CHEMOSURGERY, SURGICAL CURETTEMENT), OF BENIGN LESIONS OTHER THAN SKIN TAGS OR CUTANEOUS VASCULAR PROLIFERATIVE LESIONS; UP TO 14 LESIONS 11/17 [facility] VISUAL FIELD EXAM,UNILAT/BI,INT ERP&REP;EXT EXM(EG,GOLDMANN VIS FLD,AT LEAST 3 ISOP PLOT&STAT DET W/IN MARKUS 30DEG/QUANT,AUTO THRSH MICHAEL,OCT G-1,32/42,HUMP VIS FLD ANAL FULL THRSH 30-2,24-2, OR 3060-2) 11/10 [facility] ELECTROCARDIOGRAM, ROUTINE ECG WITH AT LEAST 12 LEADS; WITH INTERPRETATION AND REPORT 11/07 [facility] ARTHROCENTESIS, ASPIRATION AND/OR INJECTION, MAJOR JOINT OR BURSA (EG, SHOULDER, HIP, KNEE, SUBACROMIAL BURSA); WITHOUT ULTRASOUND GUIDANCE 06/13 [facility] NONINVASIVE EAR OR PULSE OXIMETRY FOR OXYGEN SATURATION; SINGLE DETERMINATION 04/28 [facility] POSTOPERATIVE FOLLOW-UP VISIT, NORMALLY INCLUDED IN THE SURGICAL PACKAGE, INDICATE THAT EVALUATION & MANAGEMENT SERVICE WAS PERFORMED DURING A POSTOPERATIVE PERIOD REASON RELATED ORIGINAL PROCEDURE 02/15 [facility] ARTHROSCOPY,KNEE,S URGICAL,FOR REMOV OF LOOSE BDY,FOREIGN BDY,DEBRIDEMENT/SH AVING OF ARTICUL CARTILAG (CHONDROPLASTY) AT THE TIME OF OTHSURGICAL KNE ARTHROSCOPY IN A DIFFERENT COMPART OF THE SAME KNEE 02/08 [facility] THERAPEUTIC PROCEDURE, 1 OR MORE AREAS, EACH 15 MINUTES; GAIT TRAINING (INCLUDES STAIR CLIMBING) 02/06 [facility] UNLISTED SPECIAL SERVICE, PROCEDURE OR REPORT 01/13 [facility] UNLISTED SPECIAL SERVICE, PROCEDURE OR REPORT 12/12 [facility] CARDIOVASCULAR STRESS TEST USING MAXIMAL OR SUBMAXIMAL TREADMILL OR BICYCLE EXERCISE,CONTINUOU S ELECTROCARDIOGRAPH IC MONITORING,AND/OR PHARMACOLOGICAL STRESS;W SUPERVISION,INTERP RETATION AND REPORT 11/11 [facility] BIOPSY OF SKIN, SUBCUTANEOUS TISSUE AND/OR MUCOUS MEMBRANE (INCLUDING SIMPLE CLOSURE),UNLESS OTHERWISE LISTED (SEPARATE PROCEDURE); EACH SEPARATE/ADD LESION (LIST SEP IN ADD TO CODE FOR PRIMARY PROC) 11/09 [facility] UNLISTED SPECIAL SERVICE, PROCEDURE OR REPORT 10/12 [facility] Visual Rivers Test Extended Examination Visual Rivers Test Extended Examination 32394 01/01 FARZANEH JACOB [facility] Ophthalmological Prior Patient Start Comprehensive Care Ophthalmological Prior Patient Start Comprehensive Care 33915 01/01 FARZANEH JACOB Heel, SACH cushion type 12/25 ROBERT NAVA Destruct Of Benign Lesion By Any Method Second Through 14 11/17 KONG FITZPATRICK Destruction Of Benign Lesion By Any Method One Lesion 11/17 KONG FITZPATRICK Biopsy Skin Biopsy Skin 02825 11/17 KONG FITZPATRICK Visual Rivers Test Extended Examination Visual Rivers Test Extended Examination 71072 11/10 FARZANEH JACOB 36 point superior field ptosis test: taped and untaped; OD and OS Naomi Ophthalmological New Patient Start Intermediate Level Care Ophthalmological New Patient Start Intermediate Level Care 42363 11/10 FARZANEH JACOB Arthrocentesis Injection Of Knee Joint Arthrocentesis Injection Of Knee Joint 59811 06/13 SARAH BOATENG Postoperative Visit, Without Charge Postoperative Visit, Without Charge 20708 02/15 SARAH BOATENG Physical Therapy Gait Training Physical Therapy Gait Training 82276 02/06 BHARTI KAY Echo (2-D) Mode Complete 11/11 JARVIS GARZA Echo (Doppler) Color Flow Velocity Mapping Echo (Doppler) Color Flow Velocity Mapping 53031 11/11 JARVIS GARZA Echo (Doppler) Echo (Doppler) 54219 11/11 JARVIS GARZA Cardiovascular Stre Test Cardiovascular Stress Test 76731 11/11 JARVIS GARZA Electrocardiogram Electrocardiogram 50666 11/11 JARVIS GARZA Biopsy Skin Biopsy Skin 53618 11/09 VICTORIANO DE LA CRUZ Biopsy Skin Each Additional Lesion Biopsy Skin Each Additional Lesion 21047 11/09 VICTORIANO DE LA CRUZ Destruction Of Benign Lesion By Any Method Destruction Of Benign Lesion By Any Method 40019 02/08 LILLIAN OLIVIA Foot insert, removable, molded to patient model, longitudinal arch support, each 01/17 PADMINI SCHUSTER 2 pair of mtech fos Naomi Health Aide Educ Orthotics Training Additional 15 Minutes Health Aide Educ Orthotics Training Additional 15 Minutes 64196 01/17 PADMINI SCHUSTER Physical Therapy: ___ Se ion Segments, 15 Minutes Each Physical Therapy: ___ Session Segments, 15 Minutes Each 73038 01/12 SHERITA SHAVER [facility] Mobilization Soft Ti ue Mobilization Soft Tissue 55697 01/12 SHERITA SHAVER [facility] ECG 12-Lead With Interpretation And Report ECG 12-Lead With Interpretation And Report 74769 01/31 NACHO GILLIS [facility] Health And Behav A e mt Each 15 Min Initial A e ment Health And Behav Assessmt Each 15 Min Initial Assessment 04495 11/01 ALFONOS BURT [facility] Fiberoptic Laryngoscopy Flexible (diagnostic) Fiberoptic Laryngoscopy Flexible (diagnostic) 29768 09/22 NACHO AQUINO After discussing procedure and [...] have no lesions. The VCs move normally [facility] Biopsy Of The Prostate Needle Biopsy Of The Prostate Needle 17456 09/[address] [facility] Urinalysis Urinalysis 75526 09/[address] [facility] Urinalysis Urinalysis 74261 08/[address] [facility] ECG 12-Lead With Interpretation And Report ECG 12-Lead With Interpretation And Report 33984 05/13 TK RIVERA [facility] Telephone calls by a registered nurse to a disease management program member for monitoring purposes; per month 04/02 CARY MIJARES 20 mins [facility] Health And Behavior Intervention, Each 15 Minutes Individual Health And Behavior Intervention, Each 15 Minutes Individual 87349 03/29 LANCE YAP [facility] Destruct Of Premalignant Lesion By Any Method 2nd Through 14 Destruct Of Premalignant Lesion By Any Method 2nd Through 14 85911 01/25 HELENE RODRÍGUEZ Patient was counseled regarding [...] Premalignant Lesion By Any Method One Lesion 80169 01/25 HELENE RODRÍGUEZ Destruction Of Benign Lesion By Any Method 1 - 14 Lesions Destruction Of Benign Lesion By Any Method 1 - 14 Lesions 28566 01/25 HELENE RODRÍGUEZ Health And Behavior Intervention, Each 15 Minutes Individual Health And Behavior Intervention, Each 15 Minutes Individual 43656 12/10 LANCE YAP Health And Behavior Intervention, Each 15 Minutes Individual Health And Behavior Intervention, Each 15 Minutes Individual 61917 11/08 LANCE YAP Postoperative Visit, Without Charge Postoperative Visit, Without Charge 47937 09/06 KOLBY LOZADA Postoperative Visit, Without Charge Postoperative Visit, Without Charge 68854 08/03 JESSENIA CHRISTIANSON External Ocular Photography External Ocular Photography 79055 08/03 JESSENIA CHRISTIANSON Ophthalmological Prior Patient Start Intermediate Level Care Ophthalmological Prior Patient Start Intermediate Level Care 51926 08/03 JESSENIA CHRISTIANSON Postoperative Visit, Without Charge Postoperative Visit, Without Charge 75461 07/27 KOLBY LOZADA Ophthalmological Prior Patient Start Intermediate Level Care Ophthalmological Prior Patient Start Intermediate Level Care 09683 05/25 JOHNNY HALL External Ocular Photography External Ocular Photography 09823 05/25 JOHNNY HALL Tdap Vaccine Seven Years Of Age And Above Tdap Vaccine Seven Years Of Age And Above 00258 04/20 LILLIAN OLIVIA Health And Behavior Intervention, Each 15 Minutes Individual Health And Behavior Intervention, Each 15 Minutes Individual 52730 04/01 LANCE YAP [facility] External Ocular Photography External Ocular Photography 21138 02/11 KOLBY LOZADA Naomi Ophthalmological Prior Patient Start Intermediate Level Care Ophthalmological Prior Patient Start Intermediate Level Care 28868 02/11 KOLBY LOZADA Naomi Ophthalmological Prior Patient Start Comprehensive Care Ophthalmological Prior Patient Start Comprehensive Care 10186 01/29 EBNJI AGUIRRE [facility] Electrocardiogram Electrocardiogram 30742 01/21 MARIVEL FUNG normal sinus ryhthm [facility] Zoster Vaccine, Live Zoster Vaccine, Live 36850 01/04 STEPHANIE FRAUSTO [facility] Immunization Administration One Vaccine Immunization Administration One Vaccine 94592 01/04 STEPHANIE FRAUSTO [facility] ECG 12-Lead With Interpretation And Report ECG 12-Lead With Interpretation And Report 64012 12/24 TK HAMLIN [facility] Physical Therapy: ___ Se ion Segments, 15 Minutes Each Physical Therapy: ___ Session Segments, 15 Minutes Each 06460 12/21 LIZZETTE BAIN Patient instructed in wall Hamstring stretches and assisted Hamstretches (he and have done these before) ITBand stretches. Foam roll on ITB and hamstrings, mini squats, plank, and hip/arm ext 3 sets 14. [facility] Physical Medicine Physical Therapy Evaluation Physical Medicine Physical Therapy Evaluation 38941 12/21 LIZZETTE BAIN Patient with multiple joint issues which is likely contributed to the severely tight hamstrings. [facility] Visual Rivers Test Extended Examination Visual Rivers Test Extended Examination 18115 12/16 DICK LAZCANO [facility] Health And Behavior Intervention, Each 15 Minutes Individual Health And Behavior Intervention, Each 15 Minutes Individual 89484 12/08 LANCE YAP [facility] Visual Rivers Test Extended Examination Visual Rivers Test Extended Examination 73561 11/06 VIKAS FRAUSTO Ophthalmological Prior Patient Start Comprehensive Care Ophthalmological Prior Patient Start Comprehensive Care 54922 11/06 VIKAS FRAUSTO Health Aide Educ Orthotics Training Additional 15 Minutes 10/13 GISELLA SANTILLAN Foot insert, removable, molded to patient model, longitudinal arch support, each 10/13 GISELLA SANTLILAN [employer] [facility] Health And Behav A e mt Each 15 Min Initial A e ment Health And Behav Assessmt Each 15 Min Initial Assessment 35814 10/10 LANCE YAP Fluoroscopic Guidance/Localiz Of Needle For Spinal Injection 08/23 HELENE BOSTON 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 43168 08/23 HELENE BOSTON Exercises A isted Exercises For ROM Exercises Assisted Exercises For ROM 20702 08/21 NICOLÁS RICHTER Physical Medicine Physical Therapy Evaluation Physical Medicine Physical Therapy Evaluation 03196 08/21 NICOLÁS RICHTER Fundus Photography Fundus Photography 40560 08/19 MORGAN DORMAN Scanning Computerized Ophthalmic Diagnostic Imaging Optic Nerve Scanning Computerized Ophthalmic Diagnostic Imaging Optic Nerve 01596 08/19 MORGAN DORMAN Determination Of Refractive State Determination Of Refractive State 58370 08/19 MORGAN DORMAN [employer] Fitting Monofocals (Not For Aphakia) [employer] Fitting Monofocals (Not For Aphakia) 84913 08/19 MORGAN DORMAN Ophthalmological New Patient Start Comprehensive Care Ophthalmological New Patient Start Comprehensive Care 74007 08/19 MORGAN DORMAN Destruct Of Premalignant Lesion By Any Method 2nd Through 14 Destruct Of Premalignant Lesion By Any Method 2nd Through 14 89330 07/22 DEMETRIO SHARMA Patient was counseled regarding [...] Premalignant Lesion By Any Method One Lesion 79276 07/22 DEMETRIO SHARMA [facility] Biopsy Skin Biopsy Skin 76524 07/22 DEMETRIO SHARMA After the patient was identified using both their full name as well as their date of the area was outlined with blue marker. Written informed consent was then obtained and a timeout was performed per [facility] protocol. The area was then anesthetizes with 1% lidocaine with epinephrine and a shave biopsy was performed. Following this hemostasis was achieved with aluminum chloride and Vaseline and a band aid were placed. Proper aftercare instructions were given. I will call with the biopsy results when they are available. [facility] Electrocardiogram Electrocardiogram 61126 07/15 MAEGAN SÁNCHEZ [facility] Measuremt Post-Voiding Resid Urine, Bladder Capacity Ultrasd Measuremt Post-Voiding Resid Urine, Bladder Capacity Ultrasd 76416 07/08 GOPAL PUCKETT PVR=0ml [facility] Health And Behav A e mt Each 15 Min Initial A e ment Health And Behav Assessmt Each 15 Min Initial Assessment 50535 06/24 RAVEN GRUBER [facility] Non-Physician Phone Call To Patient/Provider Brief (5-10min) Non-Physician Phone Call To Patient/Provider Brief (5-10min) 48135 06/17 ОЛЬГА HUMPHRIES [facility] Electrocardiogram Electrocardiogram 47347 05/21 ADIEL JACKSON [facility] Visual Rivers Test Extended Examination Visual Rivers Test Extended Examination 30733 03/07 BERTHA PERALTA [facility] Physical Therapy Education Orthotics Training Initial 15 Min 01/19 TK RAMOS [facility] Wound Care Debridement Selective (Up To 20 square cm) 01/19 TK RAMOS [facility] Orthopedic Splinting Of The Finger Orthopedic Splinting Of The Finger 08843 01/19 TK RAMOS [facility] Occupational Therapy Evaluation Occupational Therapy Evaluation 14694 01/19 TK RAMOS [facility] Holter Monitor 12/14 PIOTR MENDEZ [facility] Electrocardiogram Electrocardiogram 00583 11/03 FARZANEH CASTRO [facility] External Ocular Photography External Ocular Photography 75109 10/26 TK MANDUJANO Ophthalmological Prior Patient Start Intermediate Level Care Ophthalmological Prior Patient Start Intermediate Level Care 80416 10/26 TK MANDUJANO Ophthalmological New Patient Start Intermediate Level Care Ophthalmological New Patient Start Intermediate Level Care 89805 09/23 MAURICE FREDERICK [facility] Cardiac Stre Test, Phys. Supervision, Interp. And Report Cardiac Stress Test, Phys. Supervision, Interp. And Report 41930 09/22 KIAH CURTIS [facility] Echo For Congenital Defects Transthoracic With M-Mode, Spectral, And Color Flow Echo For Congenital Defects Transthoracic With M-Mode, Spectral, And Color Flow 03983 09/06 FRANCES PALMER [facility] Electrocardiogram Electrocardiogram 56441 09/06 FARZANEH CASTRO [facility] Scanning Computerized Ophthalmic Diagnostic Imaging Optic Nerve Scanning Computerized Ophthalmic Diagnostic Imaging Optic Nerve 29158 08/25 BERTHA PERALTA Visual Rivers Test Extended Examination Visual Rivers Test Extended Examination 95568 08/25 BERTHA PERALTA Ophthalmological Prior Patient Start Intermediate Level Care Ophthalmological Prior Patient Start Intermediate Level Care 94728 08/25 BERTHA PERALTA Biopsy Skin Each Additional Lesion Biopsy Skin Each Additional Lesion 88724 08/03 VICTORIANO DESHPANDE Biopsy Skin Biopsy Skin 41659 08/03 VICTORIANO DESHPANDE ~PROCEDURE: SHAVE BIOPSY.~ ~LOCATION(S): A-upper back b- mid back ~[employer] REQUIREMENTS WERE MET PER [facility] INSTRUCTION 6320.4B.~ ~CONSENT OBTAINED AND FORM SIGNED.~ [...] PROCEDURE WELL AND LEFT IN STABLE CONDITION.~ [facility] Determination Of Refractive State Determination Of Refractive State 87922 07/29 BERTHA PERALTA Ophthalmological New Patient Start Comprehensive Care Ophthalmological New Patient Start Comprehensive Care 43179 07/29 BERTHA PERALTA Ultrasonic Guidance For Needle Biopsy Ultrasonic Guidance For Needle Biopsy 69624 07/05 RICARDO SANTILLAN [facility] Arthrocentesis Injection Of Acromioclavicular Joint Arthrocentesis Injection Of Acromioclavicular Joint 07/05 RICARDO SANTILLAN After vebal consent about risks of bleeding, infection, bruise, steroid atrophy; and after sterile prep; and under realtime US guidance, I injected right AC jt with 1.5cc 1% lido with 20mg Kenalog. Needle entered jt space immediately, no contact w/ bony surfact. Pt tolerated procedure well, no complications. [facility] Non-Physician Phone Call To Patient/Provider Brief (5-10min) Non-Physician Phone Call To Patient/Provider Brief (5-10min) 96076 01/25 MARY STEIN Arthrocentesis Aspiration Of Intermediate Joint Arthrocentesis Aspiration Of Intermediate Joint 10/23 ARON RAMON Ultrasound Extremity, Nonvascular 10/23 ARON RAMON Echo (Doppler) Echo (Doppler) 55921 10/12 CIARRA HOUSE Echo (Doppler) Color Flow Velocity Mapping Echo (Doppler) Color Flow Velocity Mapping 33391 10/12 CIARRA HOUSE Echo (2-D) Mode Complete 10/12 CIARRA HOUSE Electrocardiogram Electrocardiogram 95560 09/30 MAEGAN SÁNCHEZ [facility] Non-Physician Phone Call To Patient/Provider Brief (5-10min) Non-Physician Phone Call To Patient/Provider Brief (5-10min) 18024 ABDULKADIR GRIFFIN Physical Medicine Physical Therapy Re-Evaluation Physical Medicine Physical Therapy Re-Evaluation 65072 09/23 MENDEZ DAVIS Modalities Iontophoresis Modalities Iontophoresis 89534 07/27 TK ALAMO Physical Therapy Mobilization Joint Physical Therapy Mobilization Joint 66766 07/27 KT ALAMO Physical Therapy: ___ Se ion Segments, 15 Minutes Each Physical Therapy: ___ Session Segments, 15 Minutes Each 13354 07/27 TK ALAMO Physical Therapy Mobilization Joint Physical Therapy Mobilization Joint 19185 07/21 CHASIDY CESPEDES Modalities Iontophoresis Modalities Iontophoresis 14335 07/21 CHASIDY CESPEDES Physical Therapy: ___ Se ion Segments, 15 Minutes Each Physical Therapy: ___ Session Segments, 15 Minutes Each 01069 07/21 CHASIDY CESPEDES [facility] Physical Therapy: ___ Se ion Segments, 15 Minutes Each Physical Therapy: ___ Session Segments, 15 Minutes Each 66751 07/16 MENDEZ DAVIS Performed 10 min of exercise education on cable system as stated above [facility] Physical Medicine Physical Therapy Re-Evaluation Physical Medicine Physical Therapy Re-Evaluation 36138 07/16 MENDEZ DAVIS DoD Modalities Iontophoresis Modalities Iontophoresis 27440 07/02 CHASIDY CESPEDES [facility] Physical Therapy Mobilization Joint Physical Therapy Mobilization Joint 06229 07/02 CHASIDY CESPEDES [facility] Physical Therapy: ___ Se ion Segments, 15 Minutes Each Physical Therapy: ___ Session Segments, 15 Minutes Each 27139 07/02 CHASIDY CESPEDES [facility] Physical Therapy Mobilization Joint Physical Therapy Mobilization Joint 77606 06/29 TONI JORDAN [facility] Modalities Iontophoresis Modalities Iontophoresis 39037 06/29 TONI JORDAN [facility] Physical Therapy: ___ Se ion Segments, 15 Minutes Each Physical Therapy: ___ Session Segments, 15 Minutes Each 06783 06/29 TONI JORDAN [facility] Modalities Iontophoresis Modalities Iontophoresis 22448 06/26 CHASIDY CESPEDES [facility] Physical Therapy Mobilization Joint Physical Therapy Mobilization Joint 44863 06/26 CHASIDY CESPEDES [facility] Physical Therapy: ___ Se ion Segments, 15 Minutes Each Physical Therapy: ___ Session Segments, 15 Minutes Each 53112 06/26 CHASIDY CESPEDES [facility] Modalities Iontophoresis Modalities Iontophoresis 14403 06/23 CHASIDY CESPEDES [facility] Physical Therapy Mobilization Joint Physical Therapy Mobilization Joint 74673 06/23 CHASIDY CESPEDES [facility] Physical Therapy: ___ Se ion Segments, 15 Minutes Each Physical Therapy: ___ Session Segments, 15 Minutes Each 70821 06/23 CHASIDY CESPEDES [facility] Physical Therapy Mobilization Joint Physical Therapy Mobilization Joint 54321 06/18 TONI JORDAN Modalities Iontophoresis Modalities Iontophoresis 57007 06/18 TONI JORDAN SEATED: IONTO TO RT SHLDR @ 2.5mA Naomi Physical Therapy: ___ Se ion Segments, 15 Minutes Each Physical Therapy: ___ Session Segments, 15 Minutes Each 83656 06/18 TONI JORDAN Physical Therapy: ___ Se ion Segments, 15 Minutes Each Physical Therapy: ___ Session Segments, 15 Minutes Each 98772 06/15 MENDEZ DAVIS Physical Medicine Physical Therapy Evaluation Physical Medicine Physical Therapy Evaluation 46607 06/15 MENDEZ DAVIS Visual Rivers Test Extended Examination Visual Rivers Test Extended Examination 68706 05/28 HELENE WADE Determination Of Refractive State Determination Of Refractive State 99238 05/28 HELENE WADE RX given, see scanned notes DoD Ophthalmological Prior Patient Start Comprehensive Care Ophthalmological Prior Patient Start Comprehensive Care 45875 05/28 HELENE WADE Optical Coherence Tomography 12/08 JOSE ROBERTS Corneal Pachymetry Both Eyes Corneal Pachymetry Both Eyes 82601 12/08 JOSE ROBERTS Visual Rivers Test Extended Examination Visual Rivers Test Extended Examination 12763 12/08 JOSE ROBERTS Ophthalmoscopy Extended, With Retinal Drawing - Initial Ophthalmoscopy Extended, With Retinal Drawing - Initial 33369 12/08 JOSE ROBERTS Ophthalmological Prior Patient Start Comprehensive Care Ophthalmological Prior Patient Start Comprehensive Care 65610 12/08 JOSE ROBERTS ECG Performance of Tracing Only ECG Performance of Tracing Only 88329 11/06 MARQUIS MO Basic Metabolic Panel With Total Calcium 11/06 MARQUIS MO CBC With Manual Differential CBC With Manual Differential 35209 11/06 MARQUIS MO Corneal Pachymetry Both Eyes Corneal Pachymetry Both Eyes 49596 10/31 BURTON RECINOS Visual Rivers Test Extended Examination Visual Rivers Test Extended Examination 15210 10/31 BURTON RECINOS Ophthalmological Prior Patient Start Intermediate Level Care Ophthalmological Prior Patient Start Intermediate Level Care 04380 10/31 BURTON RECINOS Fundoscopic Exam Extensive Follow-up Exam Fundoscopic Exam Extensive Follow-up Exam 04512 09/30 BURTON RECINOS Corneal Pachymetry Both Eyes Corneal Pachymetry Both Eyes 04148 09/30 BURTON RECINOS Ophthalmological Prior Patient Start Comprehensive Care Ophthalmological Prior Patient Start Comprehensive Care 05378 09/30 BURTON RECINOS Fundoscopic Exam Extensive Initial Exam Fundoscopic Exam Extensive Initial Exam 85005 09/19 MELGMACEY T Naomi Slit Lamp Examination Slit Lamp Examination 16424 09/19 MACEY POPE Electrocardiogram Electrocardiogram 02213 08/12 TANIA LETICIA Tony Salgado Comprehensive Audiometry Comprehensive Audiometry 98304 08/12 SRI CARRASCO Acoustic Reflex Testing 08/12 SRI CARRASCO Tympanometry Tympanometry 80814 08/12 SRI CARRASCO Evoked Otoacoustic Dania ions [...] Additional Lesion Biopsy Skin Each Additional Lesion 75858 07/30 SARAH MANE Biopsy Skin Biopsy Skin 27996 07/30 SARAH MANE Ophthalmological Sensorimotor Exam Ophthalmological Sensorimotor Exam 08922 03/18 PADMINI KING Ophthalmological Prior Patient Start Comprehensive Care Ophthalmological Prior Patient Start Comprehensive Care 19280 03/18 PADMINI KING [employer] Fitting Bifocals (Not For Aphakia) [employer] Fitting Bifocals (Not For Aphakia) 32498 12/23 ARTHUR MONROY Determination Of Refractive State Determination Of Refractive State 07941 12/23 ARTHUR MONROY Ophthalmological Prior Patient Start Intermediate Level Care Ophthalmological Prior Patient Start Intermediate Level Care 93047 12/23 ELIANAARTHUR Cath Angiography Cardiac Coronary Cath Angiography Cardiac Coronary 74505 11/13 MORGAN TEIXEIRA Catheterization Of Artery Of Extremity Catheterization Of Artery Of Extremity 20804 11/13 MORGAN TEIXEIRA Cath Angiography L Heart Ventriculography Cath Angiography L Heart Ventriculography 18042 11/13 MORGAN TEIXEIRA Cath Angiography Cath Angiography 81076 11/13 MORGAN TEIXEIRA Health Maint. Unlisted Preventive Medicine Service Health Maint. Unlisted Preventive Medicine Service 10125 11/13 MORGAN TEIXEIRA Combined R & L Cath With Retrograde L Heart Cath Combined R & L Cath With Retrograde L Heart Cath 46727 11/13 MORGAN TEIXEIRA Electrocardiogram Electrocardiogram 15517 11/05 JOSE CARTER Optical Coherence Tomography 10/31 TK WESTON Ophthalmological New Patient Start Comprehensive Care Ophthalmological New Patient Start Comprehensive Care 14878 10/31 TK WESTON Determination Of Refractive State Determination Of Refractive State 59878 10/31 TK WESTON [employer] Fitting Bifocals (Not For Aphakia) [employer] Fitting Bifocals (Not For Aphakia) 35944 10/31 TK WESTON [employer] Fitting Monofocals (Not For Aphakia) [employer] Fitting Monofocals (Not For Aphakia) 74508 10/31 TK WESTON Fundoscopic Exam Extensive Initial Exam Fundoscopic Exam Extensive Initial Exam 49358 10/24 JOSE ROBERTS Ophthalmological New Patient Start Comprehensive Care Ophthalmological New Patient Start Comprehensive Care 18426 10/24 JOSE ROBERTS Transrectal Sonogram of Prostate Transrectal Sonogram of Prostate 73083 09/16 DANIEL LAM Ultrasonic Guidance For Needle Biopsy Ultrasonic Guidance For Needle Biopsy 75744 09/16 DANIEL LAM Biopsy Of The Prostate Needle Biopsy Of The Prostate Needle 02683 09/16 DANIEL LAM EMG Of One Extremity and Related Paraspinal Areas EMG Of One Extremity and Related Paraspinal Areas 85930 08/12 WENDY HALL NCS Right Ulnar Nerve Motor Function NCS Right Ulnar Nerve Motor Function 48914 08/12 WENDY HALL NCS Right Ulnar Nerve Sensory Function (Orthodromic) NCS Right Ulnar Nerve Sensory Function (Orthodromic) 97378 08/12 WENDY HALL NCS Right Median Nerve Motor Function NCS Right Median Nerve Motor Function 51596 08/12 WENDY HALL NCS Right Median Nerve Sensory Function (Orthodromic) NCS Right Median Nerve Sensory Function (Orthodromic) 05578 08/12 WENDY HALL Disease management program, follow-up/kodak e ment 07/29 ALEXX JORDAN Telephone calls by a registered nurse to a disease management program member for monitoring purposes; per month 07/29 ALEXX JORDAN Nursing a e ment/evaluation 07/29 ALEXX JORDAN Patient Counseling Medical Management Individual Patient Patient Counseling Medical Management Individual Patient 76182 07/29 ALEXX JORDAN Training And Self-Care Skills Training And Self-Care Skills 25973 07/29 ALEXX JORDAN Fluoroscopic Guidance/Localiz Of Needle For Spinal Injection 07/22 JOSE RUVALCABA Corticosteroid Inj Interlaminar Cervical C7 - T1 07/22 JOSE RUVALCABA Echo (2-D) Mode Complete 07/15 MORGAN TEIXEIRA Echo (Doppler) Color Flow Velocity Mapping Echo (Doppler) Color Flow Velocity Mapping 02107 07/15 MORGAN TEIXEIRA Echo (Doppler) Echo (Doppler) 25059 07/15 MORGAN TEIXEIRA Disease management program, follow-up/kodak e ment 07/02 ALEXX JORDAN Telephone calls by a registered nurse to a disease management program member for monitoring purposes; per month 07/02 ALEXX JORDAN Nursing a e ment/evaluation 07/02 ALEXX JORDAN Patient Counseling Medical Management Individual Patient Patient Counseling Medical Management Individual Patient 16130 07/02 ALEXX JORDAN [facility] Training And Self-Care Skills Training And Self-Care Skills 79151 07/02 ALEXX JORDAN [facility] Injection Of Trigger Point(s) One Or Two Muscle Group(s) Injection Of Trigger Point(s) One Or Two Muscle Group(s) 19215 07/01 GISELLA COTTRELL [facility] Electrocardiogram Electrocardiogram 24160 05/21 GABRIELA PAEZ [facility] No data available for this section Ambulato ry Pharmacy Social History Combined list of available smoking, tobacco, 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 Social History Type Response Date Comment Sour e Tobacco smoking status NHIS VA-TOBACCO USER EVERY DAY 12/29/2022 [facility] History of tobacco use [place]-TOBACCO DOESNT USE WI 30 MIN WAKEUP 12/29/2022 [facility] History of tobacco use TX-TOBACCO NEVER USED 01/01/2022 [facility] History of tobacco use TX-TOBACCO USER EVERY DAY 12/17/2020 [facility] History of tobacco use LIFETIME NON-TOBACCO USER 09/20/2017 [facility] History of tobacco use LIFETIME NON-TOBACCO USER 04/29/2015 [facility] This section is an empty social history section. [facility] Assessment and Plan Combined list of future [...] at Department of Defense and [place] Affairs ([place] Functional [place] Measurement (FIM) Scale: 1 = Total Assistance (Subject = 0% +), 2 = Maximal Assistance (Subject = 25% +), 3 = Moderate Assistance (Subject = 50% +), 4 = Minimal Assistance (Subject = 75% +), 5 = Supervision, 6 = Modified [place] (Device), 7 = Complete [place] (Timely, Safely). Assessment Date/Time Source Assessment Type Assessment Skill Assessment Score Assessment Details No data available for this section
[2025-04-26 12:42] LABS: Hematocrit 32.9 % (37.0-46.0); Hemoglobin 11.0 g/dL (12.4-15.3); Immature Granulocyte Percent A 0.8 % (0.0-0.0); Lymphocytes Absolute Auto 0.82 K/mm3 (1.10-4.50); Mean Corpuscular HGB Conc 33.4 g/dL (32-36); Mean Corpuscular Hemoglobin 30.9 pg (27.0-31.0); Mean Corpuscular Volume 92.4 fL (78.0-102.0); Nucleated Red Blood Cells Absolute Auto 0.00 K/mm3 (0.00-0.00); Nucleated Red Blood Cells Perc 0.0 % (0-0.0); Platelet Count Result 252 K/mm3 (150-420); Red Blood Count 3.56 M/mm3 (4.70-6.10); White Blood Count 11.6 K/mm3 (4.8-10.8)
--- OUTSIDE RECORDS SUMMARY | 2025-04-26 12:42 | XMS_ITS | Encounter Summary ---
Author Organization [facility] Healthcare Address [address] [place] [address] Care Team Providers Care Pediatric Genetic Counselor Name Role Phone Keagan Saldana MD Primary Care Provider [phone] Mikel Villeda MD Unavailable [phone] Alan Medina MD Unavailable [phone] Wali Boyce MD Unavailable [phone] Antonio Reddy MD Unavailable [phone] Andrea Sam MD Unavailable [phone] Sony Marina MD PhD Unavailable [phone] Luther Cameron MD Unavailable [phone] Reason for Visit * Reason Comments Successful Phone Call Encounter Details Date Type Department Care Team (Late st Contact Info) Description 04/26/2025 [facility] ED Outreach [facility] Accountable Care Organization [address] [place] [id number] Gillian Lee MA [address] [place] [address] [address] [place] [address] Social History Tobacco Use Types [...] MA - 04/26/2025 10:45 AM CDT [employer] contacted patient regarding recent ED visit at [facility] on 04/24/25 for Abdominal pain . Status [...] verbalized understanding of information presented. HA Polk [facility] ACO [employer] [phone] documented in this encounter Plan of Treatment Not on file documented as of this encounter Visit Diagnoses Not on filedocumented in this encounter Care Teams Pediatric Genetic Counselor Relationship Specialty Start Date End Date Keagan Saldana MD [address] [place] [address] PCP - General Family Medicine 11/05/20 Mikel Villeda MD [address] [place] [address] Surgeon Plastic Surgery 11/23/21 Alan Medina MD [address] [place] [address] Private Household Worker Cardiology 11/23/21 Wali Boyce MD [address] [place] [address] Urologist Urology 11/23/21 Antonio Reddy MD [address] [place] [address] Urologist Urology 11/23/21 Andrea Sam MD [address] [facility] [address] [place] [address] Airplane Cover Maker Gastroenterology 11/23/21 Sony Marina MD PhD [address] [place] [address] Radiation Oncologist Radiation Oncology 02/01/25 [place] [address] [facility] [address] [place] [address] Consulting Physician Urology 02/01/25 documented as of this encounter
--- OUTSIDE RECORDS SUMMARY | 2025-04-26 12:42 | XMS_ITS | Clinical Summary ---
Author Organization [facility] Medical [facility] 1 Address [address] [place] [address] Care Team Providers Care Culturist Name Role Phone Keagan Saldana MD Primary Care Provider [phone] Mikel Villeda MD Unavailable [phone] Alan Medina MD Unavailable [phone] Wali Boyce MD Unavailable [phone] Antonio Reddy MD Unavailable [phone] Andrea Sam MD Unavailable [phone] Sony Marina MD PhD Unavailable [phone] Luther Cameron MD Unavailable [phone] Allergies Active Allergy Reactions Criticality Noted Date [...] 11/04/2023 Assessment & Plan (11/04/2023 10:57 AM SOFT WORK WRAPPER EXAMINER): Pepcid 40 mg at bedtime Esophagram Dermatochalasis [...] 06/29/2023 Assessment & Plan (11/04/2023 10:56 AM SOFT WORK WRAPPER EXAMINER): Pepcid 40 mg at bedtime Esophagram Neck [...] anxiety Assessment & Plan (11/24/2022 2:09 PM SOFT WORK WRAPPER EXAMINER): Generally well controlled, though occasionally has episodes, [...] pain Assessment & Plan (11/24/2022 2:11 PM SOFT WORK WRAPPER EXAMINER): Has joint pain in multiple sites; notes [...] (09/09/2022): Added automatically from request for surgery [id number] Seasonal allergic rhinitis due to pollen 022 Assessment & Plan (07/26/2022 10:58 AM CDT): Nasal saline spray (Simply saline, Little Remedies, [place], [place]) 2 second sprays or 2 squeezes into [...] Nasal saline spray (Simply saline, Little Remedies, [place], [place]) 2 second sprays or 2 squeezes into [...] 07/26/2022 Assessment & Plan (11/04/2023 10:56 AM SOFT WORK WRAPPER EXAMINER): Pepcid 40 mg at bedtime Esophagram Laryngopharyngeal reflux discussed and Handout provided Assessment & Plan (07/26/2022 11:00 AM CDT): Call if no improvement for trial of Pepcid LPR discussed and Handout provided Dupuytren's contracture of left hand 11/17/2021 Overview (11/17/2021): Added automatically from request for surgery [id number] History of colonic polyps 03/11/2021 Overview (03/11/2021): Added automatically from request for surgery [id number] S/P cervical spinal fusion 02/03/2021 Assessment & [...] nodules Assessment & Plan (11/05/2020 9:46 AM SOFT WORK WRAPPER EXAMINER): Seen on CTA for monitoring thoracic aortic aneurysm -continue to monitor, stable in size -no history of tobacco use, no pulmonary symptoms. BPH (benign prostatic hyperplasia) 06/19/2020 Overview (06/19/2020): Added automatically from request for surgery [id number] Assessment & Plan (06/19/2024 2:15 PM CDT): [...] b.i.d. Assessment & Plan (11/24/2022 2:09 PM SOFT WORK WRAPPER EXAMINER): Stable, well controlled; good flow with urination; [...] daily Assessment & Plan (11/24/2022 2:07 PM SOFT WORK WRAPPER EXAMINER): Stable, well controlled; blood pressure at target [...] medicine Assessment & Plan (11/09/2021 8:25 PM SOFT WORK WRAPPER EXAMINER): Blood pressure at target today, no signs or symptoms of hypotention Continue lisinopril 2.5 mg daily Assessment & Plan (05/06/2021 10:54 AM CDT): Stable, well controlled, continue lisinopril 2.5 mg Assessment & Plan (11/05/2020 9:43 AM SOFT WORK WRAPPER EXAMINER): Well controlled, bp at target today though [...] dose. Assessment & Plan (11/05/2020 9:42 AM SOFT WORK WRAPPER EXAMINER): Well controlled with Lexapro 20 mg; will [...] diet Assessment & Plan (11/24/2022 2:07 PM SOFT WORK WRAPPER EXAMINER): Stable, well controlled; continue atorvastatin 20 mg [...] therapy Assessment & Plan (11/05/2020 9:42 AM SOFT WORK WRAPPER EXAMINER): Stable, tolearting statin therapy well -continue atorvastatin [...] PM CDT): Stable, well controlled; follows with [facility] Continue to monitor for any changes [...] recommendations Assessment & Plan (11/05/2020 9:41 AM SOFT WORK WRAPPER EXAMINER): Stable, following with urology for management -patient [...] Care Team Description 04/26/2025 Telephone [facility] [address] [address] Keagan Saldana MD Symptom Based Call 04/26/2025 [facility] ED Outreach [address] [address] Gillian Lee MA 04/24/2025 10:33 PM CDT - 04/25/2025 3:13 AM CDT Emergency [facility] Emergency Department 1 [place] [address] Bob Ríos MD Abdominal pain (Primary Dx); Urinary problem in male Discharge Disposition: Discharge to home or self care 04/19/2025 [facility] IP Outreach [address] [address] Barb Colon LPN 04/18/2025 Orders Only [facility] Urology [address] [facility] Office Building [address] [place] [address] Elmer Boyce MD Prostate cancer (HCC) (Primary Dx) 04/17/2025 8:30 AM CDT - 04/17/2025 12:30 PM CDT Surgery [facility] Operating Room 1 [place] [address] Elmer Boyce MD XI PROSTATECTOMY - LAPAROSCOPIC ROBOTIC ASSISTED 04/17/2025 8:30 AM CDT Anesthesia Event [facility] Operating Room 1 [place] [address] Deisy Etienne MD Kraenzle, Elliott 04/17/2025 6:31 AM CDT - 04/18/2025 12:58 PM CDT Hospital Encounter [address] [address] Elmer Boyce MD Prostate cancer (HCC) Discharge Disposition: Discharge to home or self care 04/03/2025 10:30 AM CDT Pre-Admission Testing [facility] for Preoperative Assessment [facility] [address] [place] [id number] Preoperative testing (Primary Dx); Urination frequency 02/15/2025 Results Follow-Up [facility] Office [facility] [address] [place] [address] Elmer Boyce MD PET/CT Prostate Cancer PSMA Skull to Thigh 02/14/2025 12:39 PM CDT - 02/14/2025 11:59 PM CDT Hospital Encounter [facility] - PET [address] [facility] Floor 8 [place] [address] Discharge Disposition: Discharge to home or self care 02/14/2025 12:38 PM CDT - 02/14/2025 11:59 PM CDT Hospital Encounter [facility] - PET [address] [facility] Floor 8 [place] [address] Prostate cancer (HCC) Discharge Disposition: Discharge to home or self care 02/07/2025 10:35 AM CDT Ancillary Procedure [facility] Imaging at [address] [address] Acute cough 02/07/2025 Results Follow-Up [facility] Convenient Care at [address] [address] Feliz Floyd NP XR Chest Pa Lateral 2 Views 02/04/2025 Telephone [facility] [address] [address] Medical Office Building 1 [place] [address] Luther Cameron MD 02/02/2025 11:00 AM CDT Office Visit [facility] Convenient Care at [address] [address] Radha Walton NP Acute cough (Primary Dx) 02/01/2025 10:00 AM CDT Consult [facility] [address] [place] [address] Sony Marina MD PhD Prostate cancer (HCC) (Primary Dx); Malignant neoplasm of prostate (HCC) 02/01/2025 Orders Only [facility] Urology [facility] Office Building [address] [place] [address] Elmer Boyce MD Prostate cancer (HCC) (Primary Dx) 02/01/2025 Orders Only [facility] Urology [address] [place] [address] Medical Office Building [address] [place] [address] Elmer Boyce MD 02/01/2025 Telephone [facility] Surgery [address] [place] [address] Gwen Kay EMT 01/31/2025 10:20 AM CDT Office Visit [facility] Urology [address] [place] [address] Medical Office Building [address] [place] [address] Elmer Boyce MD Prostate cancer [...] Eric Alive Father Natanael (Age 64) Mother Dina (Age 86) Sister Alive Social History Tobacco [...] 08/16/2024, 06/16/2021 Medical Devices Implanted Type Area Diamond Sizer Device Identifier Shelf Expiration Date Model / Serial / Lot Plate Plate Cervical-Th oracic Spine Description:Plate x 5 Screw Screw Cervical-Th oracic Spine Description:Screw x 10 [employer] [id number] Urolift Implant Urological - [id number] Implanted:Qty: 3 on 07/24/2020 by Luther Cameron MD at [facility] N/A: Urethra [employer] 09/02/2021 [id number] / / [id number] [employer] Ortholoc 47mm 3di Fusion Low Profile Compression Slot Foot Right [id number] - [id number] Implanted:Qty: 1 on 09/02/2023 by Marcello Storey Jr., MD at [facility] Right: First Toe [employer] [id number] / / [employer] Ortholoc 3di 3.5mm 38mm Low Profile Self Tapping Threaded [id number] - [id number] Implanted:Qty: 1 on 09/02/2023 by Marcello Storey Jr., MD at [facility] Right: First Toe [employer] [id number] / / [employer] Ortholoc 3.5mm 2.8mm 16mm Lock On [place] Polyaxial Self Tap Midfoot [id number] - [id number] Implanted:Qty: 2 on 09/02/2023 by Marcello Storey Jr., MD at [facility] Right: First Toe [employer] [id number] / / [employer] Ortholoc 3.5mm 2.5mm 26mm Low Profile Head Self Tap Midfoot [id number] - [id number] Implanted:Qty: 1 on 09/02/2023 by Marcello Storey Jr., MD at [facility] Right: First Toe [employer] [id number] / / [employer] Ortholoc 3.5mm 2.8mm 18mm Lock On [place] Polyaxial Self Tap Midfoot [id number] - [id number] Implanted:Qty: 1 on 09/02/2023 by Marcello Storey Jr., MD at [facility] Right: First Toe [employer] [id number] / / [employer] Ortholoc 3.5mm 2.5mm 20mm Low Profile Head Self Tap Midfoot [id number] - [id number] Implanted:Qty: 1 on 09/02/2023 by Marcello Storey Jr., MD at [facility] Right: First Toe [employer] [id number] / / Procedures Procedure Name Priority Date/Time [...] 12 :13 PM CDT Prostate cancer (HCC) VT AN PROCEDURE PLACEHOLDER Routine 04/17/2025 8:59 AM CDT VT AN ELECTIVE ENDOTRACHEAL AIRWAY Routine 04/17/2025 8:59 [...] cough PSA DIAGNOSTIC Routine 11/26/2024 11:57 AM SOFT WORK WRAPPER EXAMINER Hypogonadism in male Prostate cancer (HCC) COLONOSCOPY 08/16/2024 11:00 AM SOFT WORK WRAPPER EXAMINER HEPATITIS C ANTIBODY Routine 11/05/2020 9:30 AM SOFT WORK WRAPPER EXAMINER Encounter to establish care from Last 3 Months or Most Recently Relevant to Health Maintenance Results * (ABNORMAL) Urinalysis reflex to microscopic and culture Urine (04/25/2025 1:51 AM CDT) Color, ur Yellow Yellow Clarity, ur Clear Clear [facility] Specific gravity, ur 1.022 1.003 - 1.030 [facility] pH, urine 6.0 [facility] Comment: Interpretive Data U rine pH is affected by diet, medications, systemic acid-base disturbances, and renal tubular function. pH may affect urinary stone formation. For example, urine pH below 6.0 may help reduce the tendency for calcium phosphate stones and pH greater than 6.0 may reduce the tendency for uric acid stone formation. Source: [employer] Current Interpretive Data was last revised on 2017 Protein, ur ql Negative Negative [facility] Glucose, ur ql Negative Negative [facility] Ketones, ur Negative Negative [facility] Bilirubin, ur Negative Negative [facility] Blood, ur 3+(A) Negative [facility] Urobilinogen, ur <2.0 <2.0 mg/dL [facility] Nitrite, ur Negative Negative [facility] Leukocyte esterase, ur 1+(A) Negative [facility] UA reflex comment Reflex to microscopic UA will be performed. [facility] Urine 04/25/2025 1:51 AM CDT 04/25/2025 1:56 AM CDT Bay Rawls MD LAB MICROBIOLOGY - GENE RAL ORDERABLES Final Result Performing Organization Address City/[facility] Co de Phone Number [facility] Department [place] [address] * (ABNORMAL) Urinalysis, microscopic only (04/25/2025 1:51 AM CDT) WBC, ur 21-50(A) 0 - 5 /HPF RBC, ur 6-10(A) 0 - 2 /HPF [facility] Epithelial cells, squamous, ur 1-5 0 - 5 /HPF [facility] Epithelial cells, transitional, ur 1-5 0 - 0 /HPF [facility] Bacteria, ur Trace(A) [facility] Mucous, ur Present(A) [facility] Hyaline casts, ur 1-5 0 - 10 /LPF [facility] Culture Reflex Comment Reflex to urine culture will be performed. [facility] Urine 04/25/2025 1:51 AM CDT 04/25/2025 1:56 AM CDT Bay Rawls MD LAB URINE ORDERABLES Fi nal Result Performing Organization Address [facility] Co de Phone Number [facility] Department [place] [address] * Urine culture Urine (04/25/2025 1:51 AM CDT) Report Final Report: No growth Urine 04/25/2025 1:51 AM CDT 04/25/2025 4:07 AM CDT Narrative [facility] - 04/26/2025 6:55 AM CDT Urine culture reflexed based upon urinalysis results. Testing performed by [facility] Microbiology Laboratory ([phone]) Bay Rawls MD LAB MICROBIOLOGY - GENE RAL ORDERABLES Final Result Performing Organization Address [facility] Co de Phone Number [facility] Department [place] [address] * (ABNORMAL) eGFR (04/24/2025 11:54 PM CDT) [...] ORDERABLES Fi nal Result Performing Organization Address City/[facility]/ZIP Co de Phone Number [facility] Department [place] [address] * (ABNORMAL) Differential, auto (04/24/2025 11:54 PM CDT) Neutrophil abs 12.16(H) 1.50 - 6.50 K/cumm Imm gran abs 0.07 0.00 - 0.10 K/cumm [facility] Lymphocyte abs 1.06 0.80 - 3.30 K/cumm [facility] Monocyte abs 0.73 0.20 - 0.80 K/cumm [facility] Eosinophil abs 0.46 0.00 - 0.50 K/cumm [facility] Basophil abs 0.04 0.00 - 0.10 K/cumm [facility] Neutrophil pct 83.7 % [facility] Comment: Interpretive Data Percent cell count reference ranges are not reported, since discordance with absolute values may lead to misinterpretation of CBC data. Current Interpretive Data was last revised on 2018. Imm gran pct 0.5 % [facility] Comment: Interpretive Data Percent cell count reference ranges are not reported, since discordance with absolute values may lead to misinterpretation of CBC data. Current Interpretive Data was last revised on 2018. Lymphocyte pct 7.3 % [facility] Comment: Interpretive Data Percent cell count reference ranges are not reported, since discordance with absolute values may lead to misinterpretation of CBC data. Current Interpretive Data was last revised on 2018. Monocyte pct 5.0 % [facility] Comment: Interpretive Data Percent cell count reference ranges are not reported, since discordance with absolute values may lead to misinterpretation of CBC data. Current Interpretive Data was last revised on 2018. Eosinophil pct 3.2 % [facility] Comment: Interpretive Data Percent cell count reference ranges are not reported, since discordance with absolute values may lead to misinterpretation of CBC data. Current Interpretive Data was last revised on 2018. Basophil pct 0.3 % [facility] Comment: Interpretive Data Percent cell count reference ranges are not reported, since discordance with absolute values may lead to misinterpretation of CBC data. Current Interpretive Data was last revised on 2018. Blood 04/24/2025 11:5 4 PM CDT 04/25/2025 12:06 AM CDT Bay Rawls MD LAB BLOOD ORDERABLES Fi nal Result Performing Organization Address [facility] de Phone Number [facility] Department [place] [address] * (ABNORMAL) CBC with auto differential (04/24/2025 11:54 PM CDT) [facility] WBC 14.52(H) 3.80 - 9.90 K/cumm Hgb 12.4(L) 13.0 - 17.5 g/dL [facility] Hct 36.7(L) 38.9 - 50.3 % [facility] Plt 264 150 - 400 K/cumm [facility] MPV 10.6 9.1 - 12.3 fL [facility] RBC 4.04(L) 4.30 - 5.80 M/cumm [facility] MCV 90.8 81.3 - 96.4 fL [facility] MCH 30.7 27.1 - 33.3 pg [facility] MCHC 33.8 32.3 - 35.7 g/dL [facility] RDW CV 13.6 11.1 - 14.9 % [facility] RDW SD 44.1 35.7 - 48.1 fL [facility] NRBC abs 0.00 0.00 - 0.01 K/cumm [facility] Blood 04/24/2025 11:5 4 PM CDT 04/25/2025 12:06 AM CDT Bay Rawls MD LAB BLOOD ORDERABLES Fi nal Result Performing Organization Address [facility] Co de Phone Number [facility] Department [place] [address] * Protime-INR (04/24/2025 11:54 PM CDT) [facility] PT 12.5 9.7 - 13.0 sec INR 1.15 0.90 - 1.20 [facility] Comment: Interpretive data Oral anticoagulant therapeutic [...] ORDERABLES Fi nal Result Performing Organization Address City/[facility]/ZIP Co de Phone Number [facility] Department [place] [address] * (ABNORMAL) Lipase (04/24/2025 11:54 PM CDT) Pathologist [facility] Lipase 9(L) 10 - 99 Units/L Blood 04/24/2025 11:5 4 PM CDT 04/25/2025 12:07 AM CDT Bay Rawls MD LAB BLOOD ORDERABLES Fi nal Result Performing Organization Address City/[facility] de Phone Number [facility] [place] [address] * (ABNORMAL) Comprehensive metabolic panel (04/24/2025 11:54 PM CDT) [facility] Sodium 137 135 - 145 mmol/L Potassium, pl 4.2 3.3 - 4.9 mmol/L [facility] Chloride 101 97 - 110 mmol/L [facility] CO2 27 22 - 32 mmol/L [facility] Anion gap 9 2 - 15 mmol/L [facility] BUN 20 6 - 25 mg/dL [facility] Creatinine 1.36(H) 0.80 - 1.30 mg/dL [facility] Glucose 127 70 - 199 mg/dL [facility] Comment: Interpretive Data Fasting glucose >/= [...] MD LAB BLOOD ORDERABLES Fi nal Result [facility] Department [place] [address] * eGFR (04/17/2025 11:20 PM CDT) eGFR [...] BLOOD ORDERABLES Final Result Performing Organization Address City/[facility]/ZIP Co de Phone Number [facility] [place] [address] * (ABNORMAL) CBC without differential (04/17/2025 11:20 PM CDT) Pathologist [facility] WBC 10.70(H) 3.80 - 9.90 K/cumm Hgb 11.8(L) 13.0 - 17.5 g/dL [facility] Hct 33.6(L) 38.9 - 50.3 % [facility] Plt 194 150 - 400 K/cumm [facility] MPV 11.1 9.1 - 12.3 fL [facility] RBC 3.83(L) 4.30 - 5.80 M/cumm [facility] MCV 87.7 81.3 - 96.4 fL [facility] MCH 30.8 27.1 - 33.3 pg [facility] MCHC 35.1 32.3 - 35.7 g/dL [facility] RDW CV 13.0 11.1 - 14.9 % [facility] RDW SD 41.1 35.7 - 48.1 fL [facility] NRBC abs 0.00 0.00 - 0.01 K/cumm [facility] Blood 04/17/2025 11:2 0 PM CDT 04/18/2025 12:17 AM CDT Elmer Boyce MD LAB BLOOD ORDERABLES Final Result [facility] [place] [address] * Basic metabolic panel (04/17/2025 11:20 PM CDT) Sodium 137 135 - 145 mmol/L Potassium, pl 4.3 3.3 - 4.9 mmol/L [facility] Chloride 97 97 - 110 mmol/L [facility] CO2 28 22 - 32 mmol/L [facility] Anion gap 12 2 - 15 mmol/L [facility] BUN 21 6 - 25 mg/dL [facility] Creatinine 1.23 0.80 - 1.30 mg/dL [facility] Glucose 147 70 - 199 mg/dL [facility] Comment: Interpretive Data Fasting glucose >/= [...] 2022. Calcium 8.9 8.5 - 10.3 mg/dL [facility] Blood 04/17/2025 11:2 0 PM CDT 04/18/2025 12:16 AM CDT us Elmer Boyce MD LAB BLOOD ORDERABLES Final Result Performing Organization Address City/[facility]/ZIP Co de Phone Number [facility] Department [place] [address] * POCT glucose (04/17/2025 2:59 PM CDT) Glucose, POC 136 70 - 199 mg/dL Blood 04/17/2025 2:59 PM CDT 04/17/2025 2:59 PM CDT Elmer Boyce MD LAB POCT ORDERABLES - DEVICE Final Result Performing Organization Address [facility]/ZIP Co de Phone Number [facility] Department [place] [address] * Surgical pathology (04/17/2025 12:13 PM CDT) Tissue (Prostate, Prostatectomy) 04/17/2025 12:13 PM CDT Tissue specimen (specimen) (Lymph node, dissection/region al resection) 04/17/2025 12:13 PM CDT Narrative PATHOLOGY [facility] - 04/23/2025 12:03 PM CDT EPIC results best viewed via link to PDF [facility] Aysha Pat[facility] [place] [address] Note to Patients: This report may contain [...] Gender: M : 1955 (Age: 69) Address: [address] [place], [place] [id number] Hospital #: [id number] Taken:04/17/2025 Received:04/17/2025 Reported: 04/23/2025 Patient Type: [facility] Inpatient Service: Surgery Location: [place] [address] Physician(s): Margarita Winn M.D. Diagnosis: A. Prostate, [...] radially sectioned; a six-left base margin radially sectioned.[id number]-vzdlr posterior, apex to base (A9 location of biopsy clip); L19-R40-xrtq posterior, apex to base; T38-74-dkyob anterior base (slice 1), middle slice three, [...] B5-B 6-one lymph node in two cassettes; V4-V5-oxtgrctgn fat. Jar 0. [facility]04/18/2025 14:35 Gross Resident:Vicky Lovelace M.D. PA(s): Margarita Acosta M.D. Nila Palaniappan, M.D. CANCER CASE SUMMARY FOR CARCINOMA OF THE PROSTATE GLAND Procedure: Radical prostatectomy Prostate size: Weight: 70.4g Size: 4.9 x 4.5 x 4.9 cm Histologic Type: Acinar adenocarcinoma, conventional (usual) Histologic Grade: Grade Group and [place] Score: Grade group 2 (Ivan Score 3+4=7) [...] Surgical Pathology and Flow Cytometry Departments at [facility] as part of an ongoing research associate quality control qc program and in compliance with federally mandated [...] Surgical Pathology and Flow Cytometry Departments of [facility]. It has not been cleared or approved by the U. S. Food and Drug Administration. IMAGES AND SCANNED DOCUMENTS, IF INCLUDED, ONLY VIEWABLE IN PDF VERSION OF REPORT us Elmer Boyce MD LAB PATHOLOGY ORDERAB LES Final Result PATHOLOGY [facility] 3rd Floor [place], [place] [phone] * VT AN ELECTIVE ENDOTRACHEAL AIRWAY, VT AN PROCEDURE PLACEHOLDER (04/17/2025 8:59 AM CDT) [...] - DEVICE Final Result Performing Organization Address [facility] Hospital/[facility] de Phone Number [facility] Department [place] [address] * Check Sample (04/17/2025 7:10 AM CDT) ABO Rh A Positive [facility] HCLL OTHER 04/17/2025 7:10 AM CDT 04/17/2025 7:21 AM CDT Elmer Boyce MD LAB BLOOD ORDERABLES Final Result Performing Organization Address [facility] de Phone Number [facility] Department [place] [address] BJ * TYPE AND SCREEN 14 DAY (04/03/2025 12:12 PM CDT) ABO Rh A Positive Virgilio, indirect Negative [facility] Blood 04/03/2025 12:1 2 PM CDT 04/03/2025 1:33 PM CDT Narrative [facility] - 04/03/2025 2:27 PM CDT Is this test being ordered in advance for a procedure?->Yes Expected date of procedure:->04/17/25 Has the patient been transfused in the past 3 months?->No Kalani Wagner TAMALE MACHINE FEEDER LAB BLOOD BANK TEST ORD ERABLES Final Result Performing Organization Address [facility] Co de Phone Number CARLENE [facility] [place] [address] * eGFR (04/03/2025 12:12 PM CDT) eGFR [...] CDT 04/03/2025 1:37 PM CDT Kalani Wagner TAMALE MACHINE FEEDER LAB BLOOD ORDERABLES Fi nal Result Performing Organization Address [facility]/ZIP Co de Phone Number [facility] Department [place] [address] * Differential, auto (04/03/2025 12:12 PM CDT) Neutrophil abs 6.16 1.50 - 6.50 K/cumm Imm gran abs 0.03 0.00 - 0.10 K/cumm [facility] Lymphocyte abs 1.77 0.80 - 3.30 K/cumm [facility] Monocyte abs 0.58 0.20 - 0.80 K/cumm [facility] Eosinophil abs 0.26 0.00 - 0.50 K/cumm [facility] Basophil abs 0.03 0.00 - 0.10 K/cumm [facility] Neutrophil pct 69.9 % [facility] Comment: Interpretive Data Percent cell count reference ranges are not reported, since discordance with absolute values may lead to misinterpretation of CBC data. Current Interpretive Data was last revised on 2018. Imm gran pct 0.3 % [facility] Comment: Interpretive Data Percent cell count reference ranges are not reported, since discordance with absolute values may lead to misinterpretation of CBC data. Current Interpretive Data was last revised on 2018. Lymphocyte pct 20.0 % [facility] Comment: Interpretive Data Percent cell count reference ranges are not reported, since discordance with absolute values may lead to misinterpretation of CBC data. Current Interpretive Data was last revised on 2018. Monocyte pct 6.6 % [facility] Comment: Interpretive Data Percent cell count reference ranges are not reported, since discordance with absolute values may lead to misinterpretation of CBC data. Current Interpretive Data was last revised on 2018. Eosinophil pct 2.9 % [facility] Comment: Interpretive Data Percent cell count reference ranges are not reported, since discordance with absolute values may lead to misinterpretation of CBC data. Current Interpretive Data was last revised on 2018. Basophil pct 0.3 % [facility] Comment: Interpretive Data Percent cell count reference ranges are not reported, since discordance with absolute values may lead to misinterpretation of CBC data. Current Interpretive Data was last revised on 2018. Blood 04/03/2025 12:1 2 PM CDT 04/03/2025 1:38 PM CDT us Kalani aWgner TAMALE MACHINE FEEDER LAB BLOOD ORDERABLES Fi nal Result [facility] Department [place] [address] * CBC with auto differential (04/03/2025 12:12 PM CDT) [facility] WBC 8.83 3.80 - 9.90 K/cumm Hgb 15.4 13.0 - 17.5 g/dL [facility] Hct 44.4 38.9 - 50.3 % [facility] Plt 210 150 - 400 K/cumm [facility] MPV 10.9 9.1 - 12.3 fL [facility] RBC 5.02 4.30 - 5.80 M/cumm [facility] MCV 88.4 81.3 - 96.4 fL [facility] MCH 30.7 27.1 - 33.3 pg [facility] MCHC 34.7 32.3 - 35.7 g/dL [facility] RDW CV 12.9 11.1 - 14.9 % [facility] RDW SD 41.5 35.7 - 48.1 fL [facility] NRBC abs 0.00 0.00 - 0.01 K/cumm [facility] Blood 04/03/2025 12:1 2 PM CDT 04/03/2025 1:38 PM CDT Kalani Wagner TAMALE MACHINE FEEDER LAB BLOOD ORDERABLES Fi nal Result [facility] Department [place] [address] * Urine culture Urine, clean voided (04/03/2025 12:12 PM CDT) [facility] Report Final Report: Less than 100,000 colonies/mL (clinically insignificant growth based on current clinical standards) Organism (CLINICALLY INSIGNIFICANT GROWTH [facility] Urine, clean voided 04/03/2025 12:12 PM CDT 04/03/2025 1:27 PM CDT Narrative [facility] - 04/04/2025 2:51 PM CDT Testing performed by [facility] ([phone]) Kalani Wagner NP LAB MICROBIOLOGY - GENE RAL ORDERABLES Final Result Performing Organization Address City/[facility]/ZIP Co de Phone Number [facility] Department [place] [address] * Basic metabolic panel (04/03/2025 12:12 PM CDT) Pathologist [facility] Sodium 138 135 - 145 mmol/L Potassium, pl 3.8 3.3 - 4.9 mmol/L [facility] Chloride 101 97 - 110 mmol/L [facility] CO2 29 22 - 32 mmol/L [facility] Anion gap 8 2 - 15 mmol/L [facility] BUN 25 6 - 25 mg/dL [facility] Creatinine 1.10 0.80 - 1.30 mg/dL [facility] Glucose 90 70 - 199 mg/dL [facility] Comment: Interpretive Data Fasting glucose >/= [...] 2022. Calcium 9.4 8.5 - 10.3 mg/dL [facility] Blood 04/03/2025 12:1 2 PM CDT 04/03/2025 1:37 PM CDT Kalani Wagner TAMALE MACHINE FEEDER LAB BLOOD ORDERABLES Fi nal Result Performing Organization Address [facility]/ZIP Co de Phone Number [facility] Department [place] [address] * ECG 12 lead (04/03/2025 11:57 AM CDT) Pathologist [facility] Ventricular Rate EKG/Min 53 BPM [facility] Atrial Rate 53 BPM [facility] VT-Interval (MSEC) 206 ms [facility] QRS-Interval (MSEC) 90 ms [facility] QT-Interval (MSEC) 416 ms [facility] QTc 390 ms [facility] P [place] 54 degrees [facility] R [place] 54 degrees [facility] T [place] 62 degrees [facility] Diagnosis Sinus bradycardia Otherwise normal ECG When compared with ECG of 27-NOV-2021 08:37, no significant change Confirmed by UMU MENDEZ M.D ([id number]) on 04/04/2025 8:23:01 AM [facility] 04/03/2025 11:5 7 AM CDT 04/04/2025 8:23 AM CDT us Kalani Wagner TAMALE MACHINE FEEDER ECG ORDERABLES Final R esult [facility] * PET/CT Prostate Cancer PSMA [...] EXAMINATION: PSMA-PET/CT DATE OF STUDY: 02/14/2025 SCANNER: [facility] [employer] (SQ1). This is a high-resolution scanner, which [...] obtained. The study was interpreted on the Gipis workstation. The total scanned area was mid [...] EXAMINATION: PSMA-PET/CT DATE OF STUDY: 02/14/2025 SCANNER: [facility] [employer] (SQ1). This is a high-resolution scanner, which [...] obtained. The study was interpreted on the Gipis workstation. The total scanned area was mid [...] Hipolito Alvarado M.D. RW T: Report ID: [id number] Reading Location: [id number] Procedure Note Hipolito Alvarado MD - 02/07/2025 [...] Hipolito Alvarado M.D. RW T: Report ID: [id number] Reading Location: [place] [address] us Radha Walton TAMALE MACHINE FEEDER IMG XR PROCEDURES Final Re sult * (ABNORMAL) PSA diagnostic (11/26/2024 11:57 AM SOFT WORK WRAPPER EXAMINER) PSA-Total 8.78(H) <=5.40 ng/mL Comment: Interpretive Data [...] revised 22. Blood 11/26/2024 11:5 7 AM SOFT WORK WRAPPER EXAMINER 11/26/2024 7:57 PM SOFT WORK WRAPPER EXAMINER us Luther Cameron MD LAB BLOOD ORDERABLES [facility] Result [facility] [address] [address] Department [place] [address] * Colonoscopy (08/16/2024 11:00 AM SOFT WORK WRAPPER EXAMINER) Anatomical Region Laterality Modality Other Narrative Procedure [...] scope was passed under direct vision. TheColonoscope [id number] was introduced through the anus and advanced [...] 11:00 AM Procedure Code(s): --- Professional --- 38634, Colonoscopy, flexible; diagnostic, including collection of specimen(s) by brushing or washing, when performed (separateprocedure) --- Technical --- 55415, Colonoscopy, flexible; diagnostic, including collection of specimen(s) by brushing or washing, when performed (separateprocedure) Diagnosis Code(s): --- Professional --- Z86.010, Personal history of colonic polyps K64.8, Other hemorrhoids K57.30, Diverticulosis of large intestine without perforation orabscess without bleeding --- Technical --- Z86.010, Personal history of colonic polyps K64.8, Other hemorrhoids K57.30, Diverticulosis of large intestine without perforation orabscess without bleeding CPT copyright 2020 [employer]. All rights reserved. The codes documented in this report are preliminary and upon laundry machine tender reviewmay be revised to meet current compliance requirements. Recognized by the [employer] for promoting quality in endoscopy us Sarah Motta DO ENDOSCOPY PROCEDURES Final Res ult * Hepatitis C antibody (11/05/2020 9:30 AM SOFT WORK WRAPPER EXAMINER) Hep C Ab Nonreactive Nonreactive CARLENE Comment: [...] 2019. Blood specimen (specimen) 11/05/2020 9:30 AM SOFT WORK WRAPPER EXAMINER 11/05/2020 12:22 PM SOFT WORK WRAPPER EXAMINER Keagan Saldana MD LAB MICROBIOLOGY - [facility] L ORDERABLES Final Result [facility]E [address] [address] Department [place] [address] from Last 3 Months or Most Recently Relevant to Health Maintenance Insurance MEDICARE [employer] MEDICARE FOR [facility] Advance Directives For more information, please contact: [phone] * Full Code (Latest Code Status on [...] 7:26 AM 08/22/2023 7:26 AM Care Teams Culturist Relationship Specialty Start Date End Date Keagan Saldana MD [address] [place] [address] PCP - General Family Medicine 11/05/20 Mikel Villeda MD [address] [place] [address] Surgeon Plastic Surgery 11/23/21 Alan Medina MD [address] [place] [address] Eight Section [facility]lower Cardiology 11/23/21 Wali Boyce MD [address] [place] [address] Urologist Urology 11/23/21 Antonio Reddy MD [address] [place] [address] Urologist Urology 11/23/21 Andrea Sam MD [address] [place] [address] [place] [address] Crusher Loader Equipment Operator Gastroenterology 11/23/21 Sony Marina MD PhD [address] [place] [address] Radiation Oncologist Radiation Oncology 02/01/25 [place] [address] [address] Consulting Physician Urology 02/01/25
--- OUTSIDE RECORDS SUMMARY | 2025-04-26 12:42 | XMS_ITS | Clinical Summary ---
Author Organization [facility] Address [address] [place] [address] Care Team Providers Care Job Training Supervisor Name Role Phone Alan Medina MD Unavailable [phone] Keagan Saldana MD Primary Care Provider [phone] Allergies Active Allergy Reactions Criticality Noted Date [...] pt will get that paperwork through the cafe[employer] guard. Orthopedic aftercare 04/15/2025 Mild cognitive impairment [...] time. Assessment & Plan (09/03/2024 1:27 PM ROOF PLUMBER): He has a bicuspid aortic valve with [...] testing. Assessment & Plan (09/13/2022 5:12 PM ROOF PLUMBER): I recommended that he get an echocardiogram to reassess his aortic valve. I do not hear a murmur. If his echo is stable, would consider exercise stress testing. Arthritis of right foot 09/09/2022 Overview (09/03/2024): Added automatically from request for surgery [id number] Laryngeal spasm 07/26/2022 Rhinitis medicamentosa 07/26/2022 Seasonal allergic rhinitis due to pollen 022 Cough 05/21/2022 Dupuytren's contracture of left hand 11/17/2021 Overview (09/03/2024): Added automatically from request for surgery [id number] BPH (benign prostatic hyperplasia) 06/19/2020 Overview (09/03/2024): Added automatically from request for surgery [id number] Gastroesophageal reflux disease without esophagi tis 08/21/2019 Prostate cancer ([facility]) 08/21/2019 Major depressive disorder 08/21/2019 Thoracic aortic aneurysm without rupture 019 Assessment & Plan (04/15/2025 12:39 PM CDT): Last CTA chest showed a stable aneurysm. Recommend repeating at this time. Continue blood pressure control. He is not currently requiring any antihypertensive therapy. Assessment & Plan (09/03/2024 1:28 PM ROOF PLUMBER): His aneurysm is stable. Continue blood pressure management. Assessment & Plan (01/31/2024 8:02 AM CDT): He had a CTA chest 09/2021 that showed an aneurysm of 4.3 cm. Recommend repeat CTA for surveillance. Would benefit from strict BP control. Assessment & Plan (09/13/2022 5:13 PM ROOF PLUMBER): He had a CTA chest last year that showed an aneurysm of 4.3 cm. Continue with echocardiogram. We can consider CTA next year, if his echo is stable. History of chest pain 08/21/2019 AR (congenital aortic regurgitation) ([facility] 1 10/21/2018 Assessment & Plan (09/03/2024 1:39 PM ROOF PLUMBER): Most recent echo shows mild to moderate aortic regurgitation. No diastolic murmur auscultated. Can repeat echo next year. Assessment & Plan (01/31/2024 8:03 AM CDT): Recommend echo to evaluate aortic valve given symptoms. If unremarkable, consider stress test given risk factors. Assessment & Plan (09/13/2022 5:12 PM ROOF PLUMBER): Recommend echo to evaluate aortic valve. Essential hypertension 08/21/2019 Assessment & Plan (04/15/2025 12:40 PM CDT): BP is well controlled. Previously on lisinopril, but now not on antihypertensive therapy due to hypotensive episodes. Assessment & Plan (09/03/2024 1:42 PM ROOF PLUMBER): BP is well controlled. Previously on lisinopril, but now not on antihypertensive therapy. Assessment & Plan (01/31/2024 8:03 AM CDT): BP low. C/o dizziness. Advised to stop lisinopril. Increase fluid intake. Mixed hyperlipidemia 08/21/2019 Assessment & Plan (04/15/2025 12:42 PM CDT): Last lipid panel is well-controlled. Continue atorvastatin. Assessment & Plan (09/03/2024 1:42 PM ROOF PLUMBER): Continue atorvastatin. Heart palpitations 08/21/2019 Diverticulosis of [...] AM CDT Office Visit [facility], [address] [address] Zandra Olmstead, ABIGAIL Follow Up (Aortic Regurgitation) [...] Info) Description 05/01/2025 9:00 AM CDT Appointment [facility] [place] [address] Zandra Olmstead PA [address] [facility], [address] [address] 05/01/2025 10:30 AM CDT [place] [address] Zandra Olmstead PA 3 [facility], [address] [address] 07/18/2025 10:15 AM CDT Office Visit [facility], [place] [address] [place] [address] Zandra Olmstead PA 3 [facility], [address] [place] [address] Health Maintenance Due Date Last Done Comments [...] Recently Relevant to Health Maintenance Insurance MEDICARE [facility] Care Teams Job Training Supervisor Relationship Specialty Start Date End Date Keagan Saldana MD [address] [place] [address] PCP - General FAMILY PRACTICE 01/30/24 Alan Medina MD [facility]. [facility] [address] [place] [address] Carrie Manager Of Housekeeping INTERVENTIONAL CARDIOLOGY 08/06/19
--- OUTSIDE RECORDS SUMMARY | 2025-04-26 12:42 | XMS_ITS ---
Author Organization [facility] Medical [facility] 1 Address [address] [place] [address] Care Team Providers Care Internal Communications Writer Name Role Phone Keagan Saldana MD Primary Care Provider [phone] Mikel Villeda MD Unavailable [phone] Alan Medina MD Unavailable [phone] Wali Boyce MD Unavailable [phone] Antonio Reddy MD Unavailable [phone] Andrea Sam MD Unavailable [phone] Sony Marina MD PhD Unavailable [phone] Luther Cameron MD Unavailable [phone] Active Problems Problem Noted Date Diagnosed Date [...] 11/04/2023 Assessment & Plan (11/04/2023 10:57 AM REPORT CLERK): Pepcid 40 mg at bedtime Esophagram Dermatochalasis [...] 06/29/2023 Assessment & Plan (11/04/2023 10:56 AM REPORT CLERK): Pepcid 40 mg at bedtime Esophagram Neck [...] anxiety Assessment & Plan (11/24/2022 2:09 PM REPORT CLERK): Generally well controlled, though occasionally has episodes, [...] pain Assessment & Plan (11/24/2022 2:11 PM REPORT CLERK): Has joint pain in multiple sites; notes [...] (09/09/2022): Added automatically from request for surgery [id number] Seasonal allergic rhinitis due to pollen 022 Assessment & Plan (07/26/2022 10:58 AM CDT): Nasal saline spray (Simply saline, [employer] Remedies, [place], [place]) 2 second sprays or 2 squeezes into [...] Nasal saline spray (Simply saline, [employer], [place], [place]) 2 second sprays or 2 squeezes into [...] 07/26/2022 Assessment & Plan (11/04/2023 10:56 AM REPORT CLERK): Pepcid 40 mg at bedtime Esophagram Laryngopharyngeal reflux discussed and Handout provided Assessment & Plan (07/26/2022 11:00 AM CDT): Call if no improvement for trial of Pepcid LPR discussed and Handout provided Dupuytren's contracture of left hand 11/17/2021 Overview (11/17/2021): Added automatically from request for surgery [id number] History of colonic polyps 03/11/2021 Overview (03/11/2021): Added automatically from request for surgery [id number] S/P cervical spinal fusion 02/03/2021 Assessment & [...] nodules Assessment & Plan (11/05/2020 9:46 AM REPORT CLERK): Seen on CTA for monitoring thoracic aortic aneurysm -continue to monitor, stable in size -no history of tobacco use, no pulmonary symptoms. BPH (benign prostatic hyperplasia) 06/19/2020 Overview (06/19/2020): Added automatically from request for surgery [id number] Assessment & Plan (06/19/2024 2:15 PM CDT): [...] b.i.d. Assessment & Plan (11/24/2022 2:09 PM REPORT CLERK): Stable, well controlled; good flow with urination; [...] daily Assessment & Plan (11/24/2022 2:07 PM REPORT CLERK): Stable, well controlled; blood pressure at target [...] medicine Assessment & Plan (11/09/2021 8:25 PM REPORT CLERK): Blood pressure at target today, no signs or symptoms of hypotention Continue lisinopril 2.5 mg daily Assessment & Plan (05/06/2021 10:54 AM CDT): Stable, well controlled, continue lisinopril 2.5 mg Assessment & Plan (11/05/2020 9:43 AM REPORT CLERK): Well controlled, bp at target today though [...] dose. Assessment & Plan (11/05/2020 9:42 AM REPORT CLERK): Well controlled with Lexapro 20 mg; will [...] diet Assessment & Plan (11/24/2022 2:07 PM REPORT CLERK): Stable, well controlled; continue atorvastatin 20 mg [...] therapy Assessment & Plan (11/05/2020 9:42 AM REPORT CLERK): Stable, tolearting statin therapy well -continue atorvastatin [...] PM CDT): Stable, well controlled; follows with [facility] Continue to monitor for any changes [...] recommendations Assessment & Plan (11/05/2020 9:41 AM REPORT CLERK): Stable, following with urology for management -patient [...]
--- OUTSIDE RECORDS SUMMARY | 2025-04-26 12:42 | XMS_ITS | Encounter Summary ---
Author Organization [facility] Healthcare Address [address] [place] [address] Care Team Providers Care Machine Stemmer Name Role Phone Keagan Saldana MD Primary Care Provider [phone] Mikel Villeda MD Unavailable [phone] Alan Medina MD Unavailable [phone] Wali Boyce MD Unavailable [phone] Antonoi Reddy MD Unavailable [phone] Andrea Sam MD Unavailable [phone] Sony Marina MD PhD Unavailable [phone] Luther Cameron MD Unavailable [phone] Reason for Visit * Reason Comments Abdominal Pain Urinary Problem Encounter Details Date Type Department Care Team (Late st Contact Info) Description 04/24/2025 10:33 PM CDT - 04/25/2025 3:13 AM CDT Emergency [facility] Emergency Department [address] [place] [address] Bob Ríos MD [address] [place] [address] Abdominal pain (Primary Dx); Urinary problem in [...] needed. He was advised to the return [facility] ED if he develops any concerning [...] of the anna. Pt family called urology entertainment production professional which told them to come to [facility] ED. documented in this encounter Miscellaneous Notes [...] admission (likely related to) Pt had recent [facility]/inpt admission <= 7 days. Please notify ED [...] CDT 04/25/2025 4:07 AM CDT Narrative [facility] - 04/26/2025 6:55 AM CDT Urine culture reflexed based upon urinalysis results. Testing performed by [facility] Microbiology Laboratory ([phone]) Bay Rawls MD LAB MICROBIOLOGY - [facility] ORDERABLES Final Result [facility] Department [place] [address] * (ABNORMAL) Urinalysis, microscopic only (04/25/2025 1:51 AM CDT) WBC, ur 21-50(A) 0 - 5 /HPF RBC, ur 6-10(A) 0 - 2 /HPF [facility] Epithelial cells, squamous, ur 1-5 0 - 5 /HPF [facility] Epithelial cells, transitional, ur 1-5 0 - 0 /HPF [facility] Bacteria, ur Trace(A) [facility] Mucous, ur Present(A) [facility] Hyaline casts, ur 1-5 0 - 10 /LPF [facility] Culture Reflex Comment Reflex to urine culture will be performed. [facility] Urine 04/25/2025 1:51 AM CDT 04/25/2025 1:56 AM CDT Bay Rawls MD LAB URINE ORDERABLES Fi nal Result Performing Organization Address [facility] Co de Phone Number [facility] Department [place] [address] * (ABNORMAL) Urinalysis reflex to microscopic and culture Urine (04/25/2025 1:51 AM CDT) Color, ur Yellow Yellow Clarity, ur Clear Clear [facility] Specific gravity, ur 1.022 1.003 - 1.030 [facility] pH, urine 6.0 [facility] Comment: Interpretive Data U rine pH is affected by diet, medications, systemic acid-base disturbances, and renal tubular function. pH may affect urinary stone formation. For example, urine pH below 6.0 may help reduce the tendency for calcium phosphate stones and pH greater than 6.0 may reduce the tendency for uric acid stone formation. Source: [facility] Current Interpretive Data was last revised on 2017 Protein, ur ql Negative Negative [facility] Glucose, ur ql Negative Negative [facility] Ketones, ur Negative Negative [facility] Bilirubin, ur Negative Negative [facility] Blood, ur 3+(A) Negative [facility] Urobilinogen, ur <2.0 <2.0 mg/dL [facility] Nitrite, ur Negative Negative [facility] Leukocyte esterase, ur 1+(A) Negative [facility] UA reflex comment Reflex to microscopic UA will be performed. [facility] Urine 04/25/2025 1:51 AM CDT 04/25/2025 1:56 AM CDT Bay Rawls MD LAB MICROBIOLOGY - G[facility] ORDERABLES Final Result Performing Organization Address [facility] Co de Phone Number [facility] [place] [address] * (ABNORMAL) eGFR (04/24/2025 11:54 PM CDT) [facility] eGFR 56(L) >=60 mL/min/1. 73 m2 Comment: [...] Rawls MD LAB BLOOD ORDERABLES nal Result [facility] [place] [address] * (ABNORMAL) Differential, auto (04/24/2025 11:54 PM CDT) [facility] Neutrophil abs 12.16(H) 1.50 - 6.50 K/cumm Imm gran abs 0.07 0.00 - 0.10 K/cumm [facility] Lymphocyte abs 1.06 0.80 - 3.30 K/cumm [facility] Monocyte abs 0.73 0.20 - 0.80 K/cumm [facility] Eosinophil abs 0.46 0.00 - 0.50 K/cumm [facility] Basophil abs 0.04 0.00 - 0.10 K/cumm [facility] Neutrophil pct 83.7 % [facility] Comment: Interpretive Data Percent cell count [...] on 2018. Basophil pct 0.3 % [facility] Comment: Interpretive Data Percent cell count reference ranges are not reported, since discordance with absolute values may lead to misinterpretation of CBC data. Current Interpretive Data was last revised on 2018. Blood 04/24/2025 11:5 4 PM CDT 04/25/2025 12:06 AM CDT Bay Rawls MD LAB BLOOD ORDERABLES nal Result [facility] [place] [address] * Protime-INR (04/24/2025 11:54 PM CDT) PT [...] Performing Organization Address City/[facility]/ZIP Co de Phone Number [facility] [place] [address] * (ABNORMAL) Lipase (04/24/2025 11:54 PM CDT) [facility] Lipase 9(L) 10 - 99 Units/L Blood 04/24/2025 11:5 4 PM CDT 04/25/2025 12:07 AM CDT Bay Rawls MD LAB BLOOD ORDERABLES Fi nal Result Performing Organization Address City/[facility] Co de Phone Number [facility] [place] [address] * (ABNORMAL) Comprehensive metabolic panel (04/24/2025 11:54 PM CDT) [facility] Sodium 137 135 - 145 mmol/L Potassium, pl 4.2 3.3 - 4.9 mmol/L [facility] Chloride 101 97 - 110 mmol/L [facility] CO2 27 22 - 32 mmol/L [facility] Anion gap 9 2 - 15 mmol/L [facility] BUN 20 6 - 25 mg/dL [facility] Creatinine 1.36(H) 0.80 - 1.30 mg/dL [facility] Glucose 127 70 - 199 mg/dL [facility] Comment: Interpretive Data Fasting glucose >/= [...] 2022. Calcium 9.4 8.5 - 10.3 mg/dL [facility] Bilirubin, total 1.2 0.1 - 1.2 mg/dL [facility] Protein, pl 7.0 6.5 - 8.5 g/dL [facility] Albumin 4.0 3.5 - 5.0 g/dL [facility] Alk phos 112 40 - 130 Units/L [facility] ALT 19 7 - 55 Units/L [facility] AST 23 10 - 50 Units/L [facility] Blood 04/24/2025 11:5 4 PM CDT 04/25/2025 12:07 AM CDT Bay Rawls MD LAB BLOOD ORDERABLES nal Result [facility] [place] [address] * (ABNORMAL) CBC with auto differential (04/24/2025 11:54 PM CDT) WBC 14.52(H) 3.80 - 9.90 K/cumm Hgb 12.4(L) 13.0 - 17.5 g/dL [facility] Hct 36.7(L) 38.9 - 50.3 % [facility] Plt 264 150 - 400 K/cumm [facility] MPV 10.6 9.1 - 12.3 fL [facility] RBC 4.04(L) 4.30 - 5.80 M/cumm [facility] MCV 90.8 81.3 - 96.4 fL [facility] MCH 30.7 27.1 - 33.3 pg [facility] MCHC 33.8 32.3 - 35.7 g/dL [facility] RDW CV 13.6 11.1 - 14.9 % [facility] RDW SD 44.1 35.7 - 48.1 fL [facility] NRBC abs 0.00 0.00 - 0.01 K/cumm [facility] Blood 04/24/2025 11:5 4 PM CDT 04/25/2025 12:06 AM CDT us Bay Rawls MD LAB BLOOD ORDERABLES Fi nal Result [facility] [place] [address] documented in this encounter Visit Diagnoses Diagnosis [...] 04/25/2025 documented in this encounter Care Teams Machine Stemmer Relationship Specialty Start Date End [place] [address] PCP - General Family Medicine 11/05/20 Mikel Villeda MD [address] [place] [address] Surgeon Plastic Surgery 11/23/21 Alan Medina MD [address] [place] [address] Assurance Senior Manager Cardiology 11/23/21 Wali Boyce MD [address] [place] [address] Urologist Urology 11/23/21 Antonio Reddy MD [address] [place] [address] Urologist Urology 11/23/21 Andrea Sam MD [address] [address] Vocational Rehabilitation Specialist Gastroenterology 11/23/21 Sony Marina MD PhD [address] [place] [address] Radiation Oncologist Radiation Oncology 02/01/25 [place] [address] [address] Consulting Physician Urology 02/01/25 documented as of this encounter
--- OUTSIDE RECORDS SUMMARY | 2025-04-26 12:42 | XMS_ITS | Clinical Summary ---
Author Organization [facility] Address [address] [place] [address] Phone Care Team Providers Care Sweat Band Separator Name Role Phone Provider, None Primary Care [...] on file Legal Sex Male 1:12 PM FOOTBALL PAD REPAIRER Gender Identity Not on file Sexual Orientation Not on file Last Filed Vital Signs Vital Sign Reading Time Taken Comments Blood Pressure 147/80 11/27/2016 1:24 PM FOOTBALL PAD REPAIRER Pulse 72 11/27/2016 1:24 PM FOOTBALL PAD REPAIRER Temperature 36.8 C (98.3 F) 11/27/2016 1:24 PM FOOTBALL PAD REPAIRER Respiratory Rate 16 11/27/2016 1:24 PM FOOTBALL PAD REPAIRER Oxygen Saturation 96% 11/27/2016 1:24 PM FOOTBALL PAD REPAIRER Inhaled Oxygen Concentration - - Weight 90.7 kg (200 lb) 11/27/2016 1:24 PM FOOTBALL PAD REPAIRER Height 185.4 cm (6' 1) 11/27/2016 1:24 PM FOOTBALL PAD REPAIRER Body Mass Index 26.39 11/27/2016 1:24 PM FOOTBALL PAD REPAIRER Plan of Treatment Health Maintenance Due Date [...] age to complete this topic Care Teams Sweat Band Separator Relationship Specialty Start Date End Date Provider, None [place] PCP - General 11/27/16
--- OUTSIDE RECORDS SUMMARY | 2025-04-26 12:42 | XMS_ITS | Clinical Summary ---
Author Organization [facility] Address [address] [place] [address] Care Team Providers Care School Inspector Name Role Phone Unavailable Primary Care Provider Unavailabl e Medications testosterone (Fortesta) 10 mg/0.5 gram /actuation Gel in Metered-dose Pump Apply 4 pumps to the skin daily as directed. 180 Gram 04/28/2023 1:00 PM CDT 3 Active eszopiclone (LUNESTA) 3 mg Tablet Take 1 Tablet (3 mg) by mouth daily at bedtime. 90 Tablet 08/30/2023 2:08 PM [facility]OSPITAL [facility] 3 Active HYDROcodone-ac etaminophen (NORCO) 5-325 mg tablet Take 1-2 Tablets by mouth every 4-6 hours as needed for pain. 50 Tablet 09/02/2023 11:57 AM HOSPITAL C[facility] 3 Active famotidine (PEPCID) 20 mg tablet Take 1 Tablet (20 mg) by mouth daily. 90 Tablet 3 10/04/2023 12:08 PM HOSPITAL C[facility] 3 Active clonazePAM (KlonoPIN) 0.5 mg Tablet Take 0.5-1 tablet by mouth daily as needed for anxiety. 14 Tablet 2 01/17/2024 12:56 PM CDT 4 Active testosterone 10 mg/0.5 gram /actuation Gel in Metered-dose Pump Place 40 mg ( 4 pumps ) on the skin daily. 90 Gram 5 09/19/2024 2:51 PM HOSPITAL C[facility] 4 Active methylPREDNISo lone (MEDROL DOSPACK) 4 mg Tablets, Dose Pack Take as directed on package 21 Each 05/01/2024 12:01 PM CDT 4 Active fluticasone propionate (FLONASE) 50 mcg/spray Mineral, Suspension nasal inhaler Administer 2 sprays in [...]
--- OUTSIDE RECORDS SUMMARY | 2025-04-26 12:42 | XMS_ITS | Encounter Summary ---
Author Organization [facility] Healthcare Address [address] [place] [address] Care Team Providers Care Plate Painter Apprentice Name Role Phone Keagan Saldana MD Primary Care Provider [phone] Mikel Villeda MD Unavailable [phone] Alan Medina MD Unavailable [phone] Wali Boyce MD Unavailable [phone] Antonio Reddy MD Unavailable [phone] Andrea Sam MD Unavailable [phone] Sony Marina MD PhD Unavailable [phone] Luther Cameron MD Unavailable [phone] Reason for Visit * Reason Onset Date Comments Symptom Based Call 04/26/2025 Encounter Details Date Type Department Care Team (Late st Contact Info) Description 04/26/2025 Telephone [facility] [address] [facility] [address] Keagan Saldana MD [address] [place] [address] Symptom Based Call Social History [...] up and discuss ongoing symptoms. HA Ortiz [facility] Care Occupational Therapist [phone] documented in this encounter Plan of Treatment Not on file documented as of this encounter Visit Diagnoses Not on filedocumented in this encounter Care Teams Plate Painter Apprentice Relationship Specialty Start Date End Date [place] [address] [address] PCP - General Family Medicine 11/05/20 Mikel Villeda MD [address] [place] [address] Surgeon Plastic Surgery 11/23/21 Alan Medina MD [address] [place] [address] Echocardiologist Cardiology 11/23/21 Wali Boyce MD [address] [place] [address] Urologist Urology 11/23/21 Antonio Reddy MD [address] [place] [address] Urologist Urology 11/23/21 Andrea Sam MD [address] [address] Farm Equipment Engine Mechanic Gastroenterology 11/23/21 Sony Marina MD PhD [address] [place] [address] Radiation Oncologist Radiation Oncology 02/01/25 [place] [address] [place] [address] Consulting Physician Urology 02/01/25 documented as of this encounter
--- OUTSIDE RECORDS SUMMARY | 2025-04-26 12:42 | XMS_ITS | Referral Summary ---
Author Organization [facility] 1 Address [address] [place] [address] Care Team Providers Care Substance Abuse Services Director Name Role Phone Keagan Saldana MD Primary Care Provider [phone] Mikel Villeda MD Unavailable [phone] Alan Medina MD Unavailable [phone] Wali Boyce MD Unavailable [phone] Antonio Reddy MD Unavailable [phone] Andrea Sam MD Unavailable [phone] Sony Marina MD PhD Unavailable [phone] Luther Cameron MD Unavailable [phone] Encounters Date Type Department Care Team Description 04/26/2025 Telephone [facility] [address] [place] [address] Keagan Saldana MD Symptom Based Call 04/26/2025 ISABEL ED Outreach [facility] Accountable Care Organization [address] [place] [address] Gillian Lee MA 04/24/2025 10:33 PM CDT - 04/25/2025 3:13 AM CDT Emergency [facility] 1 [place] [address] Bob Ríos MD Abdominal pain (Primary Dx); Urinary problem in male Discharge Disposition: Discharge to home or self care 04/19/2025 ISABEL IP Outreach [facility] Organization [address] [place] [address] Barb Colon LPN 04/18/2025 Orders Only [facility] Urology [address] [place] [address] Office [address] [place] [place] [phone] Elmer Boyce MD Prostate cancer (HCC) (Primary Dx) 04/17/2025 6:31 AM CDT - 04/18/2025 12:58 PM CDT Hospital Encounter [address] [address] Elmer Boyce MD Prostate cancer (HCC) Discharge Disposition: Discharge to home or self care 04/17/2025 8:30 AM CDT - 04/17/2025 12:30 PM CDT Surgery [facility] 1 [place] [phone] Elmer Boyce MD XI PROSTATECTOMY - LAPAROSCOPIC ROBOTIC ASSISTED 04/17/2025 8:30 AM CDT Anesthesia Event [facility] [address] [place] [address] Deisy Etienne MD Kraenzle, Elliott 04/03/2025 10:30 AM CDT Pre-Admission Testing [facility] [address] [place] [phone] Preoperative testing (Primary Dx); Urination frequency 02/15/2025 Results Follow-Up [facility] Urology [address] [place] [address] Office Building [address] [place] [place] [phone] Elmer Byoce MD PET/CT Prostate Cancer PSMA Skull to Thigh 02/14/2025 12:39 PM CDT - 02/14/2025 11:59 PM CDT Hospital Encounter [facility] - PET [address] Floor [address] [place] [address] Discharge Disposition: Discharge to home or self care 02/14/2025 12:38 PM CDT - 02/14/2025 11:59 PM CDT Hospital Encounter [facility] - PET [address] Floor 8 [place] [address] Prostate cancer (HCC) Discharge Disposition: Discharge to home or self care 02/07/2025 Results Follow-Up [facility] at [address] [address] Feliz Floyd NP XR Chest Pa Lateral 2 Views 02/07/2025 10:35 AM CDT Ancillary Procedure [facility] Medical [facility] Imaging at [address] [phone] Acute cough 02/04/2025 Telephone [facility] Urology [address] [place] [address] Medical Office Building 1 [place] [phone] Luther Cameron MD 02/02/2025 11:00 AM CDT Office Visit [facility] at [address] [phone] Radha Walton NP Acute cough (Primary Dx) 02/01/2025 Orders Only [facility] Urology [address] [place] [address] Medical Office Building [address] [place] [place] [phone] Elmer Boyce MD Prostate cancer (HCC) (Primary Dx) 02/01/2025 Orders Only [facility] Urology [address] [place] [address] Medical Office Building 4 [address] [place] [phone] Elmer Boyce MD 02/01/2025 Telephone [facility] Surgery [address] [place] [address] Gwen Kay EMT 02/01/2025 10:00 AM CDT Consult [facility] Radiation Oncology [address] [place] [address] Sony Marina MD PhD Prostate cancer (HCC) (Primary Dx); Malignant neoplasm of prostate (HCC) 01/31/2025 10:20 AM CDT Office Visit [facility] Urology [address] [facility] Medical Office Building [address] [place] [phone] Elmer Boyce MD Prostate cancer (HCC) [...] 11/04/2023 Assessment & Plan (11/04/2023 10:57 AM FRONT DESK WORKER): Pepcid 40 mg at bedtime Esophagram Dermatochalasis [...] 06/29/2023 Assessment & Plan (11/04/2023 10:56 AM FRONT DESK WORKER): Pepcid 40 mg at bedtime Esophagram Neck [...] anxiety Assessment & Plan (11/24/2022 2:09 PM FRONT DESK WORKER): Generally well controlled, though occasionally has episodes, [...] pain Assessment & Plan (11/24/2022 2:11 PM FRONT DESK WORKER): Has joint pain in multiple sites; notes [...] (09/09/2022): Added automatically from request for surgery [id number] Seasonal allergic rhinitis due to pollen 022 Assessment & Plan (07/26/2022 10:58 AM CDT): Nasal saline spray (Simply saline, Little Remedies, Perry, Bartlett) 2 second sprays or 2 squeezes into [...] Nasal saline spray (Simply saline, Little Remedies, Perry, Bartlett) 2 second sprays or 2 squeezes into [...] 07/26/2022 Assessment & Plan (11/04/2023 10:56 AM FRONT DESK WORKER): Pepcid 40 mg at bedtime Esophagram Laryngopharyngeal reflux discussed and Handout provided Assessment & Plan (07/26/2022 11:00 AM CDT): Call if no improvement for trial of Pepcid LPR discussed and Handout provided Dupuytren's contracture of left hand 11/17/2021 Overview (11/17/2021): Added automatically from request for surgery [id number] History of colonic polyps 03/11/2021 Overview (03/11/2021): Added automatically from request for surgery [id number] S/P cervical spinal fusion 02/03/2021 Assessment & [...] nodules Assessment & Plan (11/05/2020 9:46 AM FRONT DESK WORKER): Seen on CTA for monitoring thoracic aortic aneurysm -continue to monitor, stable in size -no history of tobacco use, no pulmonary symptoms. BPH (benign prostatic hyperplasia) 06/19/2020 Overview (06/19/2020): Added automatically from request for surgery [id number] Assessment & Plan (06/19/2024 2:15 PM CDT): [...] b.i.d. Assessment & Plan (11/24/2022 2:09 PM FRONT DESK WORKER): Stable, well controlled; good flow with urination; [...] daily Assessment & Plan (11/24/2022 2:07 PM FRONT DESK WORKER): Stable, well controlled; blood pressure at target [...] medicine Assessment & Plan (11/09/2021 8:25 PM FRONT DESK WORKER): Blood pressure at target today, no signs or symptoms of hypotention Continue lisinopril 2.5 mg daily Assessment & Plan (05/06/2021 10:54 AM CDT): Stable, well controlled, continue lisinopril 2.5 mg Assessment & Plan (11/05/2020 9:43 AM FRONT DESK WORKER): Well controlled, bp at target today though [...] dose. Assessment & Plan (11/05/2020 9:42 AM FRONT DESK WORKER): Well controlled with Lexapro 20 mg; will [...] diet Assessment & Plan (11/24/2022 2:07 PM FRONT DESK WORKER): Stable, well controlled; continue atorvastatin 20 mg [...] therapy Assessment & Plan (11/05/2020 9:42 AM FRONT DESK WORKER): Stable, tolearting statin therapy well -continue atorvastatin [...] PM CDT): Stable, well controlled; follows with [facility] Continue to monitor for any changes [...] with Urology, continue to monitor PSA Biopsy [place] 6, patient in active surveillance of prostate cancer Assessment & Plan (02/03/2021 3:55 PM CDT): Briefly reviewed results of biopsy with patient, patient to follow-up with urology for further recommendations Assessment & Plan (11/05/2020 9:41 AM FRONT DESK WORKER): Stable, following with urology for management -patient [...] on file Medical Devices Implanted Type Area Crystal Finisher Device Identifier Shelf Expiration Date Model / Serial / Lot Plate Plate Cervical-Th oracic Spine Description:Plate x 5 Screw Screw Cervical-Th oracic Spine Description:Screw x 10 [employer] [id number] Urolift Implant Urological - [id number] Implanted:Qty: 3 on 07/24/2020 by Luther Cameron MD at [facility] N/A: Urethra [employer] 09/02/2021 [id number] / / [id number] [employer] Ortholoc 47mm 3di Fusion Low Profile Compression Slot Foot Right [id number] - [id number] Implanted:Qty: 1 on 09/02/2023 by Marcello Storey Jr., MD at [facility] Right: First Toe [employer] [id number] / / [employer] Ortholoc 3di 3.5mm 38mm Low Profile Self Tapping Threaded [id number] - [id number] Implanted:Qty: 1 on 09/02/2023 by Marcello Storey Jr., MD at [facility] Right: First Toe [employer] [id number] / / [employer] Ortholoc 3.5mm 2.8mm 16mm Lock On [place] Polyaxial Self Tap Midfoot [id number] - [id number] Implanted:Qty: 2 on 09/02/2023 by Marcello Storey Jr., MD at [facility] Right: First Toe [employer] [id number] / / [employer] Ortholoc 3.5mm 2.5mm 26mm Low Profile Head Self Tap Midfoot [id number] - [id number] Implanted:Qty: 1 on 09/02/2023 by Marcello Storey Jr., MD at [facility] Right: First Toe [employer] [id number] / / [employer] Ortholoc 3.5mm 2.8mm 18mm Lock On [place] Polyaxial Self Tap Midfoot [id number] - [id number] Implanted:Qty: 1 on 09/02/2023 by Marcello Storey Jr., MD at [facility] Right: First Toe [employer] [id number] / / [employer] Ortholoc 3.5mm 2.5mm 20mm Low Profile Head Self Tap Midfoot [id number] - [id number] Implanted:Qty: 1 on 09/02/2023 by Marcello Storey Jr., MD at [facility] Right: First Toe [employer] [id number] / / Procedures Procedure Name Priority Date/Time [...] 12 :13 PM CDT Prostate cancer (HCC) CO AN PROCEDURE PLACEHOLDER Routine 04/17/2025 8:59 AM CDT CO AN ELECTIVE ENDOTRACHEAL AIRWAY Routine 04/17/2025 8:59 [...] cough PSA DIAGNOSTIC Routine 11/26/2024 11:57 AM FRONT DESK WORKER Hypogonadism in male Prostate cancer (HCC) COLONOSCOPY 08/16/2024 11:00 AM FRONT DESK WORKER HEPATITIS C ANTIBODY Routine 11/05/2020 9:30 AM FRONT DESK WORKER Encounter to establish care from Last 3 Months or Most Recently Relevant to Health Maintenance Results * (ABNORMAL) Urinalysis reflex to microscopic and culture Urine (04/25/2025 1:51 AM CDT) Color, ur Yellow Yellow Clarity, ur Clear Clear [facility] Specific gravity, ur 1.022 1.003 - 1.030 [facility] pH, urine 6.0 [facility] Comment: Interpretive Data U rine pH is affected by diet, medications, systemic acid-base disturbances, and renal tubular function. pH may affect urinary stone formation. For example, urine pH below 6.0 may help reduce the tendency for calcium phosphate stones and pH greater than 6.0 may reduce the tendency for uric acid stone formation. Source: [facility] Current Interpretive Data was last revised on 2017 Protein, ur ql Negative Negative [facility] Glucose, ur ql Negative Negative [facility] Ketones, ur Negative Negative [facility] Bilirubin, ur Negative Negative [facility] Blood, ur 3+(A) Negative [facility] Urobilinogen, ur <2.0 <2.0 mg/dL [facility] Nitrite, ur Negative Negative [facility] Leukocyte esterase, ur 1+(A) Negative [facility] UA reflex comment Reflex to microscopic UA will be performed. [facility] Urine 04/25/2025 1:51 AM CDT 04/25/2025 1:56 AM CDT us Bay Rawls MD LAB MICROBIOLOGY - [facility] ORDERABLES Final Result [facility] [place] [address] * (ABNORMAL) Urinalysis, microscopic only (04/25/2025 1:51 AM CDT) WBC, ur 21-50(A) 0 - 5 /HPF RBC, ur 6-10(A) 0 - 2 /HPF [facility] Epithelial cells, squamous, ur 1-5 0 - 5 /HPF [facility] Epithelial cells, transitional, ur 1-5 0 - 0 /HPF [facility] Bacteria, ur Trace(A) [facility] Mucous, ur Present(A) [facility] Hyaline casts, ur 1-5 0 - 10 /LPF [facility] Culture Reflex Comment Reflex to urine culture will be performed. [facility] Urine 04/25/2025 1:51 AM CDT 04/25/2025 1:56 AM CDT Bay Rawls MD LAB URINE ORDERABLES Fi nal Result Performing Organization Address City/[facility] Co de Phone Number [facility] [place] [address] * Urine culture Urine (04/25/2025 1:51 AM CDT) Report Final Report: No growth Urine 04/25/2025 1:51 AM CDT 04/25/2025 4:07 AM CDT Narrative [facility] - 04/26/2025 6:55 AM CDT Urine culture reflexed based upon urinalysis results. Testing performed by [facility] ([phone]) Bay Rawls MD LAB MICROBIOLOGY - GENE RAL ORDERABLES Final Result Performing Organization Address [facility] Co de Phone Number [facility] [place] [address] * (ABNORMAL) eGFR (04/24/2025 11:54 PM CDT) [...] MD LAB BLOOD ORDERABLES Fi nal Result [facility] [place] [address] * (ABNORMAL) Differential, auto (04/24/2025 11:54 PM CDT) Neutrophil abs 12.16(H) 1.50 - 6.50 K/cumm Imm gran abs 0.07 0.00 - 0.10 K/cumm [facility] Lymphocyte abs 1.06 0.80 - 3.30 K/cumm [facility] Monocyte abs 0.73 0.20 - 0.80 K/cumm [facility] Eosinophil abs 0.46 0.00 - 0.50 K/cumm [facility] Basophil abs 0.04 0.00 - 0.10 K/cumm [facility] Neutrophil pct 83.7 % [facility] Comment: Interpretive Data Percent cell count reference ranges are not reported, since discordance with absolute values may lead to misinterpretation of CBC data. Current Interpretive Data was last revised on 2018. Imm gran pct 0.5 % [facility] Comment: Interpretive Data Percent cell count reference ranges are not reported, since discordance with absolute values may lead to misinterpretation of CBC data. Current Interpretive Data was last revised on 2018. Lymphocyte pct 7.3 % [facility] Comment: Interpretive Data Percent cell count reference ranges are not reported, since discordance with absolute values may lead to misinterpretation of CBC data. Current Interpretive Data was last revised on 2018. Monocyte pct 5.0 % [facility] Comment: Interpretive Data Percent cell count reference ranges are not reported, since discordance with absolute values may lead to misinterpretation of CBC data. Current Interpretive Data was last revised on 2018. Eosinophil pct 3.2 % [facility] Comment: Interpretive Data Percent cell count reference ranges are not reported, since discordance with absolute values may lead to misinterpretation of CBC data. Current Interpretive Data was last revised on 2018. Basophil pct 0.3 % [facility] Comment: Interpretive Data Percent cell count reference ranges are not reported, since discordance with absolute values may lead to misinterpretation of CBC data. Current Interpretive Data was last revised on 2018. Blood 04/24/2025 11:5 4 PM CDT 04/25/2025 12:06 AM CDT Bay Rawls MD LAB BLOOD ORDERABLES Fi nal Result [facility] [place] [address] * (ABNORMAL) CBC with auto differential (04/24/2025 11:54 PM CDT) WBC 14.52(H) 3.80 - 9.90 K/cumm Hgb 12.4(L) 13.0 - 17.5 g/dL [facility] Hct 36.7(L) 38.9 - 50.3 % [facility] Plt 264 150 - 400 K/cumm [facility] MPV 10.6 9.1 - 12.3 fL [facility] RBC 4.04(L) 4.30 - 5.80 M/cumm [facility] MCV 90.8 81.3 - 96.4 fL [facility] MCH 30.7 27.1 - 33.3 pg [facility] MCHC 33.8 32.3 - 35.7 g/dL [facility] RDW CV 13.6 11.1 - 14.9 % [facility] RDW SD 44.1 35.7 - 48.1 fL [facility] NRBC abs 0.00 0.00 - 0.01 K/cumm [facility] Blood 04/24/2025 11:5 4 PM CDT 04/25/2025 12:06 AM CDT us Bay Rawls MD LAB BLOOD ORDERABLES Fi nal Result Performing Organization Address City/[facility] Co de Phone Number [facility] [place] [address] * Protime-INR (04/24/2025 11:54 PM CDT) Pathologist [facility] PT 12.5 9.7 - 13.0 sec INR 1.15 0.90 - 1.20 [facility] Comment: Interpretive data Oral anticoagulant therapeutic ranges: Venous thromboembolism prophylaxis or treatment: 2.0-3.0 CARDIOLOGY Standard range: 2.0-3.0 High-intensity range: 2.5-3.5 Refer to indication-specific guidelines for appropriate target ranges for prosthetic heart valve replacement. Current interpretive data was last revised on 2019. Blood 04/24/2025 11:5 4 PM CDT 04/25/2025 12:16 AM CDT Bay Rawls MD LAB BLOOD ORDERABLES Fi nal Result Performing Organization Address [facility] [place] [address] * (ABNORMAL) Lipase (04/24/2025 11:54 PM CDT) Pathologist [facility] Lipase 9(L) 10 - 99 Units/L Blood 04/24/2025 11:5 4 PM CDT 04/25/2025 12:07 AM CDT Bay Rawls MD LAB BLOOD ORDERABLES Fi nal Result Performing Organization Address City/[facility] [place] [address] * (ABNORMAL) Comprehensive metabolic panel (04/24/2025 11:54 PM CDT) [facility] Sodium 137 135 - 145 mmol/L Potassium, pl 4.2 3.3 - 4.9 mmol/L [facility] Chloride 101 97 - 110 mmol/L [facility] CO2 27 22 - 32 mmol/L [facility] Anion gap 9 2 - 15 mmol/L [facility] BUN 20 6 - 25 mg/dL [facility] Creatinine 1.36(H) 0.80 - 1.30 mg/dL [facility] Glucose 127 70 - 199 mg/dL [facility] Comment: Interpretive Data Fasting glucose >/= 126 [...] 2022. Calcium 9.4 8.5 - 10.3 mg/dL [facility] Bilirubin, total 1.2 0.1 - 1.2 mg/dL [facility] Protein, pl 7.0 6.5 - 8.5 g/dL [facility] Albumin 4.0 3.5 - 5.0 g/dL [facility] Alk phos 112 40 - 130 Units/L [facility] ALT 19 7 - 55 Units/L [facility] AST 23 10 - 50 Units/L [facility] Blood 04/24/2025 11:5 4 PM CDT 04/25/2025 12:07 AM CDT us Bay Rawls MD LAB BLOOD ORDERABLES Fi nal Result [facility] Department [place] [address] * eGFR (04/17/2025 11:20 PM CDT) eGFR [...] Boyce MD LAB BLOOD ORDERABLES Final Result [facility] [place] [address] * (ABNORMAL) CBC without differential (04/17/2025 11:20 PM CDT) WBC 10.70(H) 3.80 - 9.90 K/cumm Hgb 11.8(L) 13.0 - 17.5 g/dL [facility] Hct 33.6(L) 38.9 - 50.3 % [facility] Plt 194 150 - 400 K/cumm [facility] MPV 11.1 9.1 - 12.3 fL [facility] RBC 3.83(L) 4.30 - 5.80 M/cumm [facility] MCV 87.7 81.3 - 96.4 fL [facility] MCH 30.8 27.1 - 33.3 pg [facility] MCHC 35.1 32.3 - 35.7 g/dL [facility] RDW CV 13.0 11.1 - 14.9 % [facility] RDW SD 41.1 35.7 - 48.1 fL [facility] NRBC abs 0.00 0.00 - 0.01 K/cumm [facility] Blood 04/17/2025 11:2 0 PM CDT 04/18/2025 12:17 AM CDT Elmer Boyce MD LAB BLOOD ORDERABLES Final Result [facility] [place] [address] * Basic metabolic panel (04/17/2025 11:20 PM CDT) Sodium 137 135 - 145 mmol/L Potassium, pl 4.3 3.3 - 4.9 mmol/L [facility] Chloride 97 97 - 110 mmol/L [facility] CO2 28 22 - 32 mmol/L [facility] Anion gap 12 2 - 15 mmol/L [facility] BUN 21 6 - 25 mg/dL [facility] Creatinine 1.23 0.80 - 1.30 mg/dL [facility] Glucose 147 70 - 199 mg/dL [facility] Comment: Interpretive Data Fasting glucose >/= 126 [...] 2022. Calcium 8.9 8.5 - 10.3 mg/dL [facility] Blood 04/17/2025 11:2 0 PM CDT 04/18/2025 12:16 AM CDT Elmer Boyce MD LAB BLOOD ORDERABLES Final Result [facility] Department [place] [address] * POCT glucose (04/17/2025 2:59 PM CDT) Glucose, POC 136 70 - 199 mg/dL Blood 04/17/2025 2:59 PM CDT 04/17/2025 2:59 PM CDT us Elmer Boyce MD LAB POCT ORDERABLES - DEVICE Final Result [facility] [place] [address] * Surgical pathology (04/17/2025 12:13 PM CDT) Tissue (Prostate, Prostatectomy) 04/17/2025 12:13 PM CDT Tissue specimen (specimen) (Lymph node, dissection/region al resection) 04/17/2025 12:13 PM CDT Narrative PATHOLOGY [facility] - 04/23/2025 12:03 PM CDT EPIC results best viewed via link to PDF [facility] Aysha Patton [facility] [place] [address] Note to Patients: This report may contain [...] Gender: M : 1955 (Age: 69) Address: [address] [place] [phone] Hospital #: [id number] Taken:04/17/2025 Received:04/17/2025 Reported: 04/23/2025 Patient Type: [facility] Inpatient Service: Surgery Location: [facility] 250 Physician(s): Elmer Boyce M.D. Keagan Saldana M.D. [...] radially sectioned; a six-left base margin radially sectioned.[id number] posterior, apex to base (A9 location of biopsy clip); [id number] posterior, apex to base; [id number] anterior base (slice 1), middle slice three, [...] B5-B 6-one lymph node in two cassettes; H7-J4-urcbedoiw fat. Jar 0. donta/04/18/2025 14:35 Gross Resident:Vicky Lovelace M.D. PA(s): Margarita Acosta M.D. Nila Palaniappan, M.D. CANCER CASE SUMMARY FOR CARCINOMA OF THE PROSTATE GLAND Procedure: Radical prostatectomy Prostate size: Weight: 70.4g Size: 4.9 x 4.5 x 4.9 cm Histologic Type: Acinar adenocarcinoma, conventional (usual) Histologic Grade: Grade Group and [place] Score: Grade group 2 (Ivan Score 3+4=7) [...] Surgical Pathology and Flow Cytometry Departments at [facility] as part of an ongoing vice president quality program and in compliance with federally mandated [...] Surgical Pathology and Flow Cytometry Departments of [facility]. It has not been cleared or approved by the U. S. Food and Drug Administration. IMAGES AND SCANNED DOCUMENTS, IF INCLUDED, ONLY VIEWABLE IN PDF VERSION OF REPORT us Elmer Boyce MD LAB PATHOLOGY ORDERAB LES Final Result PATHOLOGY [facility] 3rd Floor [place], [place] [phone] * CO AN ELECTIVE ENDOTRACHEAL AIRWAY, CO AN PROCEDURE PLACEHOLDER (04/17/2025 8:59 AM CDT) [...] POCT ORDERABLES - DEVICE Final Result [facility] Department [place] [address] * Check Sample (04/17/2025 7:10 AM CDT) ABO Rh A Positive [facility] HCLL OTHER 04/17/2025 7:10 AM CDT 04/17/2025 7:21 AM CDT us Elmer Boyce MD LAB BLOOD ORDERABLES Final Result Performing Organization Address [facility] Co de Phone Number [facility] [place] [address] [facility] * TYPE AND SCREEN 14 DAY (04/03/2025 12:12 PM CDT) ABO Rh A Positive Virgilio, indirect Negative [facility] Blood 04/03/2025 12:1 2 PM CDT 04/03/2025 1:33 PM CDT Narrative [facility] - 04/03/2025 2:27 PM CDT Is this test being ordered in advance for a procedure?->Yes Expected date of procedure:->04/17/25 Has the patient been transfused in the past 3 months?->No Kalani Wagner NP LAB BLOOD BANK TEST ORD ERABLES Final Result Performing Organization Address [facility] de Phone Number [facility] [place] [address] * eGFR (04/03/2025 12:12 PM CDT) eGFR [...] CDT 04/03/2025 1:37 PM CDT us Kalani Wagner HOSE TENDER LAB BLOOD ORDERABLES Fi nal Result [facility] [place] [address] * Differential, auto (04/03/2025 12:12 PM CDT) Neutrophil abs 6.16 1.50 - 6.50 K/cumm Imm gran abs 0.03 0.00 - 0.10 K/cumm [facility] Lymphocyte abs 1.77 0.80 - 3.30 K/cumm [facility] Monocyte abs 0.58 0.20 - 0.80 K/cumm [facility] Eosinophil abs 0.26 0.00 - 0.50 K/cumm [facility] Basophil abs 0.03 0.00 - 0.10 K/cumm [facility] Neutrophil pct 69.9 % [facility] Comment: Interpretive Data Percent cell count reference ranges are not reported, since discordance with absolute values may lead to misinterpretation of CBC data. Current Interpretive Data was last revised on 2018. Imm gran pct 0.3 % [facility] Comment: Interpretive Data Percent cell count reference ranges are not reported, since discordance with absolute values may lead to misinterpretation of CBC data. Current Interpretive Data was last revised on 2018. Lymphocyte pct 20.0 % [facility] Comment: Interpretive Data Percent cell count reference ranges are not reported, since discordance with absolute values may lead to misinterpretation of CBC data. Current Interpretive Data was last revised on 2018. Monocyte pct 6.6 % [facility] Comment: Interpretive Data Percent cell count reference ranges are not reported, since discordance with absolute values may lead to misinterpretation of CBC data. Current Interpretive Data was last revised on 2018. Eosinophil pct 2.9 % [facility] Comment: Interpretive Data Percent cell count reference ranges are not reported, since discordance with absolute values may lead to misinterpretation of CBC data. Current Interpretive Data was last revised on 2018. Basophil pct 0.3 % [facility] Comment: Interpretive Data Percent cell count reference ranges are not reported, since discordance with absolute values may lead to misinterpretation of CBC data. Current Interpretive Data was last revised on 2018. Blood 04/03/2025 12:1 2 PM CDT 04/03/2025 1:38 PM CDT Kalani Wagner HOSE TENDER LAB BLOOD ORDERABLES Fi nal Result Performing Organization Address City/[facility]/ZIP Co de Phone Number [facility] [place] [address] * CBC with auto differential (04/03/2025 12:12 PM CDT) WBC 8.83 3.80 - 9.90 K/cumm Hgb 15.4 13.0 - 17.5 g/dL [facility] Hct 44.4 38.9 - 50.3 % [facility] Plt 210 150 - 400 K/cumm [facility] MPV 10.9 9.1 - 12.3 fL [facility] RBC 5.02 4.30 - 5.80 M/cumm [facility] MCV 88.4 81.3 - 96.4 fL [facility] MCH 30.7 27.1 - 33.3 pg [facility] MCHC 34.7 32.3 - 35.7 g/dL [facility] RDW CV 12.9 11.1 - 14.9 % [facility] RDW SD 41.5 35.7 - 48.1 fL [facility] NRBC abs 0.00 0.00 - 0.01 K/cumm [facility] Blood 04/03/2025 12:1 2 PM CDT 04/03/2025 1:38 PM CDT Kalani Wagner HOSE TENDER LAB BLOOD ORDERABLES Fi nal Result Performing Organization Address City/[facility]/ZIP Co de Phone Number [facility] [place] [address] * Urine culture Urine, clean voided (04/03/2025 12:12 PM CDT) Pathologist [facility] Report Final Report: Less than 100,000 colonies/mL (clinically insignificant growth based on current clinical standards) Organism (CLINICALLY INSIGNIFICANT GROWTH [facility] Urine, clean voided 04/03/2025 12:12 PM CDT 04/03/2025 1:27 PM CDT Narrative [facility] - 04/04/2025 2:51 PM CDT Testing performed by [facility] ([phone]) Kalani Wagner NP LAB MICROBIOLOGY - GENE [facility] ORDERABLES Final Result [facility] [place] [address] * Basic metabolic panel (04/03/2025 12:12 PM CDT) Pathologist [facility] Sodium 138 135 - 145 mmol/L Potassium, pl 3.8 3.3 - 4.9 mmol/L [facility] Chloride 101 97 - 110 mmol/L [facility] CO2 29 22 - 32 mmol/L [facility] Anion gap 8 2 - 15 mmol/L [facility] BUN 25 6 - 25 mg/dL [facility] Creatinine 1.10 0.80 - 1.30 mg/dL [facility] Glucose 90 70 - 199 mg/dL [facility] Comment: Interpretive Data Fasting glucose >/= 126 [...] 2022. Calcium 9.4 8.5 - 10.3 mg/dL [facility] Blood 04/03/2025 12:1 2 PM CDT 04/03/2025 1:37 PM CDT Kalani Wagner HOSE TENDER LAB BLOOD ORDERABLES Fi nal Result Performing Organization Address [facility] Co de Phone Number [facility] Department [place] [address] * ECG 12 lead (04/03/2025 11:57 AM CDT) Ventricular Rate EKG/Min 53 BPM [facility] Atrial Rate 53 BPM [facility] CO-Interval (MSEC) 206 ms [facility] QRS-Interval (MSEC) 90 ms [facility] QT-Interval (MSEC) 416 ms [facility] QTc 390 ms [facility] P [place] 54 degrees [facility] R [place] 54 degrees [facility] T [place] 62 degrees [facility] Diagnosis Sinus bradycardia Otherwise normal ECG When compared with ECG of 27-NOV-2021 08:37, no significant change Confirmed by UUM MENDEZ M.D ([id number]) on 04/04/2025 8:23:01 AM [facility] 04/03/2025 11:5 7 AM CDT 04/04/2025 8:23 AM CDT Kalani Wagner HOSE TENDER ECG ORDERABLES Final R esult Performing Organization Address [facility] Co de Phone Number [facility] * PET/CT Prostate Cancer PSMA Skull to [...] EXAMINATION: PSMA-PET/CT DATE OF STUDY: 02/14/2025 SCANNER: [facility] iBuildApp (SQ1). This is a high-resolution scanner, which [...] obtained. The study was interpreted on the HouseCall workstation. The total scanned area was mid [...] EXAMINATION: PSMA-PET/CT DATE OF STUDY: 02/14/2025 SCANNER: [facility] i[employer] (SQ1). This is a high-resolution scanner, which can result in higher SUVs (and even detection of previously unrecognized small lesions) compared to older scanners. RADIOPHARMACEUTICAL: 10.37 mCi F-18 DCFPyL (Piflufolastat) i.v. Injection site: Right forearm HISTORY: 69-year-old man with prostate cancer diagnosed on 01/07/2025, [place] Score 4+4 = 8, involving the right [...] obtained. The study was interpreted on the [employer] workstation. The total scanned area was mid [...] Hipolito Alvarado M.D. RW T: Report ID: [id number] Reading Location: [id number] Procedure Note Hipolito Alvarado MD - 02/07/2025 [...] signed by Hipolito ADAMES T: Report ID: [id number] Reading Location: [id number] Radha Walton HOSE TENDER IMG XR PROCEDURES Final Re sult * (ABNORMAL) PSA diagnostic (11/26/2024 11:57 AM FRONT DESK WORKER) PSA-Total 8.78(H) <=5.40 ng/mL Comment: Interpretive Data [...] revised 22. Blood 11/26/2024 11:5 7 AM FRONT DESK WORKER 11/26/2024 7:57 PM FRONT DESK WORKER us Luther Cameron MD LAB BLOOD ORDERABLES Fi nal Result [facility] [address] [facility] Department [place] [address] * Colonoscopy (08/16/2024 11:00 AM FRONT DESK WORKER) Anatomical Region Laterality Modality Other Narrative Procedure Note Sarah Motta DO - 08/16/2024 11:[address] [facility] Patient Name: Sarah Martinez Procedure Date: 08/16/2024 11:00AM Date of : 1955 Admit Type: Outpatient Age: 68 Gender: Male Attending MD: Sarah Motta D.O. Room: [facility] ENDOSCOPY ROOM 3 Note Status: Finalized [...] scope was passed under direct vision. TheColonoscope [id number] was introduced through the anus and advanced [...] 11:00 AM Procedure Code(s): --- Professional --- 71275, Colonoscopy, flexible; diagnostic, including collection of specimen(s) by brushing or washing, when performed (separateprocedure) --- Technical --- 67434, Colonoscopy, flexible; diagnostic, including collection of specimen(s) by brushing or washing, when performed (separateprocedure) Diagnosis Code(s): --- Professional --- Z86.010, Personal history of colonic polyps K64.8, Other hemorrhoids K57.30, Diverticulosis of large intestine without perforation orabscess without bleeding --- Technical --- Z86.010, Personal history of colonic polyps K64.8, Other hemorrhoids K57.30, Diverticulosis of large intestine without perforation orabscess without bleeding CPT copyright 2020 [employer]. All rights reserved. The codes documented in this report are preliminary and upon medical insurance coder reviewmay be revised to meet current compliance requirements. Recognized by the [employer] for promoting quality in endoscopy Sarah Motta DO ENDOSCOPY PROCEDURES Final Res ult * Hepatitis C antibody (11/05/2020 9:30 AM FRONT DESK WORKER) Hep C Ab Nonreactive Nonreactive [facility] [...] 2019. Blood specimen (specimen) 11/05/2020 9:30 AM FRONT DESK WORKER 11/05/2020 12:22 PM FRONT DESK WORKER Keagan Saldana MD LAB MICROBIOLOGY - GENERA L ORDERABLES Final Result [facility] [address] Department [place] [address] from Last 3 Months or Most Recently Relevant to Health Maintenance Insurance MEDICARE FOR LIFE MEDICARE MEDICARE FOR LIFE Advance Directives For more information, please contact: [phone] * Full Code (Latest Code Status on [...] 7:26 AM 08/22/2023 7:26 AM Care Teams Substance Abuse Services Director Relationship Specialty Start Date End Date Keagan Saldana MD [address] [place] [address] PCP - General Family Medicine 11/05/20 Mikel Villeda MD [address] [place] [address] Surgeon Plastic Surgery 11/23/21 Alan Medina MD [address] [place] [address] Program Or Project Administrator Cardiology 11/23/21 Wali Boyce MD [address] [place] [address] Urologist Urology 11/23/21 Antonio Reddy MD [address] [place], [place] [id number] Urologist Urology 11/23/21 Andrea Sam MD [address] [address] Project Engineering Manager Gastroenterology 11/23/21 Sony Marina MD PhD [address] [place] [address] Radiation Oncologist Radiation Oncology 02/01/[address] [place] [address] [facility] [address] [place] [address] Consulting Physician Urology 02/01/25
[2025-04-26 12:54] LABS: Alanine Aminotransferase 28 U/L (6-50); Albumin Level 3.5 g/dL (3.5-5.1); Alkaline Phosphatase 88 U/L (38-126); Anion Gap 6 mmol/L (4-12); Aspartate Amino Transferase 33 U/L (17-59); Bilirubin,Total 1.8 mg/dL (0.2-1.3); Blood Urea Nitrogen 22 mg/dL (9-20); Calcium 8.9 mg/dL (8.4-10.2); Carbon Dioxide 28 mmol/L (22-30); Chloride 101 mmol/L (98-107); Estimated CRCL calculation 38 ml/min; Estimated Glomerular Filt Rate 37; Glucose 107 mg/dL (65-110); Lipase 15 U/L (23-300); Osmolality Calculated 283 mOsm/kg (285-295); Potassium 4.2 mmol/L (3.4-5.0); Sodium 135 mmol/L (137-145); Total Protein 6.1 g/dL (6.3-8.2)
[2025-04-26 12:57] LABS: INR 1.0; Partial Thromboplastin Time 38.4 Sec (23.9-30.70); Prothrombin Time 11.2 Seconds (9.50-12.1)
[2025-04-26 14:37] LABS: Appearance Urine Clear (Clear); Glucose Urine UA Trace (Negative); Leukocyte Esterase Ur Negative LEU/UL (Negative); Nitrate Urine Positive (Negative); Specific Grav Ur <= 1.005 (1.010-1.020)
[2025-04-26 14:46] LABS: Add Urine Microscopic? YES
[2025-04-26] MEDS: cefTRIAXone 1 GM in SODIUM CHLORIDE 0.9% IV 50 ML 100 ML IVPB (16:15)
--- NOTE | 2025-04-28 12:31 | PC.NURSE ---
final urine culture reviewed. no growth isolated
== END 2025-04-26 17:20 | disposition home or self-care (01) ==
PROVIDERS: Emergency Provider Internal Medicine Critical Care Medicine; PCP Hospitalist
DX: N39.0 Urinary tract infection, site not specified (principal); N17.9 Acute kidney failure, unspecified; R33.9 Retention of urine, unspecified; I10 Essential (primary) hypertension; E78.5 Hyperlipidemia, unspecified; Z98.890 Other specified postprocedural states
CPT/HCPCS: 36415; 74177; 80053; 81001; 83605; 83690; 85025; 85610; 85730; 87086; 96365; 96375; 96376; 99284; J0696; J1171; J2405; J7120; Q9967

== ENCOUNTER 2025-04-28 19:57 | Emergency (ER) | payer MEDICARE, OTHER, SELFPAY ==
--- OUTSIDE RECORDS SUMMARY | 2025-04-28 20:01 | XMS_ITS | Clinical Summary ---
Author Organization [facility] Address [address] [place] [address] Care Team Providers Care Career Coach Name Role Phone Unavailable Primary Care Provider [...]
--- OUTSIDE RECORDS SUMMARY | 2025-04-28 20:01 | XMS_ITS | Encounter Summary ---
Author Organization [facility] Health Address [address] [place] [address] Care Team Providers Care User Interface Artist Name Role Phone Unavailable Primary Care Provider Unavailabl e Prior Encounters Date Type Department Care Team Description 10/22/2019 Converted 13x Documents [facility] [address] [place] [phone] <No scans attached> 10/22/2019 Converted CPS Chart Documents [facility] [address] [place] [phone] <No scans attached> Plan of Treatment Not on file Procedures Procedure Name Priority Date/Time Associated Diagnosis Comments 20 MOD AMALGAM 3 SURFACE Routine 013 2:00 AM APPAREL PATTERN MAKER 19 AMALGAM 3 SURFACE Routine 013 2:00 AM APPAREL PATTERN MAKER 17 AMALGAM 3 SURFACE Routine 013 2:00 AM APPAREL PATTERN MAKER 31 MO AMALGAM 2 SURFACE Routine 10/28/19 13 2:00 AM APPAREL PATTERN MAKER 21 DO AMALGAM 2 SURFACE Routine 10/28/19 13 2:00 AM APPAREL PATTERN MAKER 14 ENDODONTIC THERAPY, MOLAR TOOTH (EXCLUDING FINAL ORTHODOXY) Routine 10/28/2012 2:00 AM APPAREL PATTERN MAKER TOPICAL APPLICATION OF FLUORIDE VARNISH Routine 10/28/2012 2:00 AM APPAREL PATTERN MAKER PROPHYLAXIS - ADULT Routine 10/28/2012 2 :00 AM APPAREL PATTERN MAKER COMPREHENSIVE ORAL EVALUATION - NEW OR ESTABLISHED PATIENT Routine 10/28/2012 2:00 AM APPAREL PATTERN MAKER PANORAMIC RADIOGRAPHIC IMAGE Routine 10/28/2012 2:00 AM APPAREL PATTERN MAKER INTRAORAL - COMPREHENSIVE SERIES OF RADIOGRAPHIC IMAGES Routine 10/28/2012 2:00 AM APPAREL PATTERN MAKER INTRAORAL PHOTO Routine 10/28/2012 2:00 AM APPAREL PATTERN MAKER INTRAORAL PHOTO Routine 10/28/2012 2:00 AM APPAREL PATTERN MAKER INTRAORAL PHOTO Routine 10/28/2012 2:00 AM APPAREL PATTERN MAKER INTRAORAL PHOTO Routine 10/28/2012 2:00 AM APPAREL PATTERN MAKER Visit Diagnoses Not on file
--- OUTSIDE RECORDS SUMMARY | 2025-04-28 20:02 | XMS_ITS | Encounter Summary ---
Author Organization [facility] Healthcare Address [address] [place] [address] Care Team Providers Care Telephone Solicitor Name Role Phone Keagan Saldana MD Primary Care Provider [phone] Mikel Villeda MD Unavailable [phone] Alan Medina MD Unavailable [phone] Wali Boyce MD Unavailable [phone] Antonio Reddy MD Unavailable [phone] Andrea Sam MD Unavailable [phone] Sony Marina MD PhD Unavailable [phone] Luther Cameron MD Unavailable [phone] Encounter Details Date Type Department Care Team (Late st Contact Info) Description 01/06/2021 Telephone [facility] [address] [place] [address] Margo Velarde, RT Social History Tobacco Use [...] COVID: Suspected 10/10/2024 10/10/2024 10/10/2024 7:33 PM BATCH HEAT TREAT OPERATOR COVID19 10/10/2024 10/10/2024 10/20/2024 3:05 AM BATCH HEAT TREAT OPERATOR COVID: Recovered Comment:Added based on recent COVID infection. 10/20/2024 10/23/2024 01/18/2025 3:05 AM C DT documented as of this encounter Care Teams Telephone Solicitor Relationship Specialty Start Date End [place] [address] PCP - General Family Medicine 11/05/20 Mikel Villeda MD [address] [place] [address] Surgeon Plastic Surgery 11/23/21 Alan Medina MD [address] [place] [address] Ground School Instructor Cardiology 11/23/21 Wali Boyce MD [address] [place] [address] Urologist Urology 11/23/21 Antonio Reddy MD [address] [place] [address] Urologist Urology 11/23/21 Andrea Sam MD [address] [place] [address] Plant Specialist Gastroenterology 11/23/21 Sony Marina MD PhD [address] [place] [address] Radiation Oncologist Radiation Oncology 02/01/25 [place] [address] [address] Consulting Physician Urology 02/01/25 documented as of this encounter
--- OUTSIDE RECORDS SUMMARY | 2025-04-28 20:03 | XMS_ITS | Encounter Summary ---
Author Organization [facility] Healthcare Address [address] [place] [address] Care Team Providers Care Awning Craftsperson Name Role Phone Keagan Saldana MD Primary Care Provider [phone] Mikel Villeda MD Unavailable [phone] Alan Medina MD Unavailable [phone] Wali Boyce MD Unavailable [phone] Antonio Reddy MD Unavailable [phone] Andrea Sam MD Unavailable [phone] Encounter Details Date Type Department Care Team (Late st Contact Info) Description 07/07/2023 1:23 PM CDT Hospital Encounter [facility] [address] [phone] Social History Tobacco Use Types [...] COVID: Suspected 10/10/2024 10/10/2024 10/10/2024 7:33 PM FACILITIES SPECIALIST COVID19 10/10/2024 10/10/2024 10/20/2024 3:05 AM FACILITIES SPECIALIST COVID: Recovered Comment:Added based on recent COVID infection. 10/20/2024 10/23/2024 01/18/2025 3:05 AM C DT documented as of this encounter Care Teams Awning Craftsperson Relationship Specialty Start Date End Date Keagan Saldana MD [address] [place] [address] PCP - General Family Medicine 11/05/20 Mikel Villeda MD [address] [place] [address] Surgeon Plastic Surgery 11/23/21 Alan Medina MD [address] [place] [address] [employer] Wireman Cardiology 11/23/21 Wali Boyce MD [address] [place] [address] Urologist Urology 11/23/21 Antonio Reddy MD [address] [place] [address] Urologist Urology 11/23/21 Andrea Sam MD [address] [place] [address] [place] [address] Gift Manager Gastroenterology 11/23/21 documented as of this encounter
[2025-04-28 20:04] VITALS: BP 152/75; PULSE 70; RESP 14; TEMP 36.8; O2SAT 97
--- OUTSIDE RECORDS SUMMARY | 2025-04-28 20:05 | XMS_ITS | Continuity of Care Document ---
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 Name Role Phone [facility] Unavailable Unavailable Problems [...] 2014 Condition DoD Cervical radiculopathy Active Condition [facility] Cervicalgia Active Condition [facility] Gastroesophageal reflux disease Active Condition [facility] Hypercholesterolemi a Active Condition [facility] Hypertension Active Condition [facility] Insomnia Active Condition [facility] Major depressive disorder Active Condition [facility] Neoplasm of prostate Active Condition [facility] Tinnitus Active Condition [facility] 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 DoD Dermatochalasis of unspecified eye, unspecified eyelid Active Condition DoD Osteoarthritis of knee, unspecified Active Condition DoD Hydrocele, unspecified Active Condition DoD insomnia Active Condition DoD neck pain Active Condition DoD pneumonia Active Condition DoD Aftercare Orthopedic Active Condition DoD epididymitis right Inactive Condition Do D scrotum disorders Active Condition DoD Eyelid Dermatochalasis Active Condition DoD disorder of eyelids or lacrimal sac, duct, or gland Active Condition DoD optic nerve disorders Active Condition DoD osteoarthritis localized primary shoulder right acromioclavicular joint Active Condition DoD upper respiratory infection Inactive Condition DoD nasal discharge Inactive Condition DoD headache Inactive Condition DoD cough Inactive Condition DoD Patient Education - Pre-Procedure Teaching Active Condition DoD shoulder impingement right Active Condition DoD joint pain, localized in the shoulder Active Condition DoD visit for: issue repeat prescription Inactive Condition DoD cataract senile both eyes Active Condition DoD 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 DoD visit for: postsurgical exam Inactive Condition DoD visit for: preoperative exam Inactive Condition DoD deviated nasal septum Active Condition DoD bph local w/o urinary obstruct w/ other low urinary tract sx Active Condition DoD visit for: administrative purpose Inactive Condition DoD hypertrophy nasal turbinate Active Condition DoD borderline glaucoma Active Condition Do D 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 DoD tinnitus subjective Active Condition Do D sensorineural hearing loss asymmetrical Active Condition DoD benign skin neoplasm Inactive Condition DoD actinic keratosis Active Condition DoD gaze convergence palsy Active Condition DoD astigmatism Active Condition DoD atypical chest pain Inactive Condition D oD 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 DoD aortic regurgitation congenital bicuspid valve Active Condition DoD internal derangement lateral meniscus of knee Active Condition DoD internal derangement medial meniscus knee Active Condition DoD osteoarthritis knee Active Condition pt is not a good [...] medi armani management at this time DoD male erectile disorder Active Condition DoD visit for: screening exam malignant neoplasm prostate Inactive Condition DoD Dupuytren's contracture Active Condition DoD sebaceous gland disorder Active Condition Reassured of be nign nature of several lesions c/w sebaceous hyperplasia on forehead. Treated approx eight lesions w/ hyfrecation. DoD ptosis mechanical Active Condition DoD hypertension systemic Active Condition Start Tiazac. D o a 5 day BP check with [employer] physician and adjust dose as necessary. DoD hyperlipidemia Active Condition Pt wi ll modify diet to try to reduce LDL < 100. If not, will increase Zocor. DoD osteoarthritis localized primary knee Active Condition act modcont rom cont strengtheningarthri tis creamsglucosaminens aidsf/u 2 months DoD cervical radiculopathy Active Condition sx now resolve d - [...] DoD Other Physical Therapy Active Condition DoD loose body in knee Active Condition DoD aortic regurgitation Active Condition DoD bicuspid aortic valve Active Condition DoD palpitations Active Condition DoD seborrheic keratosis Inactive Condition cryo to one les ion [...] to f/u 1 yr or pr DoD skin neoplasm uncertain behavior Active Condition 3mm papul e w/ depressed center and slight crust on dorsum of left hand. DDx to include AK, SCC, BCC. Biopsy for diagnosis. [facility] Serum Prostate-specific Antigen (PSA) Elevated Active Condition After re-discus nj with Dr. Lam, will attempt trial of Levaquin x 4 wks and repeat PSA. Fu with Dr. Lam. [facility] Medications Combined list of outpatient [...] EVERY EVENING ORAL ACTIVE TK ADAMES 2020 [facility] N ATORVASTATI N CA 40MG TAB TAKE ONE-HALF TABLET BY MOUTH AT BEDTIME ORAL ACTIVE VELIA VAUGHAN 2016 [facility] CLONAZEPAM (CLONAZEPAM ), 0.5MG, TABLET, ORAL, [place], 500 ea. BOTTLE Active [id number] 2023 14 Pharmac y Data Transac tion Service Facilit y CLONAZEPAM (CLONAZEPAM ), 0.5MG, TABLET, ORAL, [place], 500 ea. BOTTLE Active [id number] 4 2023 14 Pharmac y Data Transac tion Service Facilit y ESCITALOPRA M OXALATE 20MG TAB TAKE ONE TABLET BY MOUTH ONCE A DAY ORAL ACTIVE TK ADAMES 2020 [facility] ESCITALOPRA M OXALATE 20MG TAB TAKE ONE TABLET BY MOUTH EVERY DAY ORAL ACTIVE VELIA VAUGHAN 2016 [facility] ESZOPICLONE (eszopiclon e), 3 MG, TABLET, ORAL, [employer], 100 ea. BOTTLE Active [id number] 4 2023 90 Pharmac y Data Transac tion Service Facilit y ESZOPICLONE 3MG TAB TAKE ONE TABLET BY MOUTH AT BEDTIME ORAL ACTIVE RICARDO REYES 2022 [facility] LISINOPRIL 5MG TAB TAKE ONE-HALF TABLET BY MOUTH ONCE A DAY ORAL ACTIVE TK ADAMSE 2020 [facility] DIVBLAISE Albert LiSINOpril TAB TAKE BY MOUTH ACTIVE ABELARDO INTERIANO 2012 [facility] MELOXICAM 15MG TAB TAKE ONE TABLET BY MOUTH ONCE A DAY ORAL ACTIVE TK ADAMES 2020 [facility] ANDREI Albert MELOXICAM 15MG TAB TAKE ONE TABLET BY MOUTH EVERY DAY ORAL ACTIVE VELIA VAUGHAN 2016 [facility] SIMVASTATIN TAB TAKE BY MOUTH AT BEDTIME ACTIVE ABELARDO INTERIANO 2012 [facility] TAMSULOSIN HCL 0.4MG CAP TAKE 1 CAPSULE BY MOUTH EVERY EVENING ORAL ACTIVE TK ADAMES 2020 [facility] ANDREI Albert TAMSULOSIN HCL 0.4MG CAP TAKE ONE CAPSULE BY MOUTH EVERY DAY ORAL ACTIVE VELIA VAUGHAN 2016 [facility] UNLISTED MD MED MISCELLANEO US USE FORTESTA 60MG DIRECTED EVERY DAY DIRECT ED ACTIVE VELIA VAUGHAN 2016 [facility] UNLISTED MD MED MISCELLANEO US USE LUNESTA DIRECTED DIRECT ED ACTIVE VELIA VAUGHAN P 2016 [facility] Allergies, Adverse Reactions, Alerts Combined list of allergies from Department of Defense and Veterans Affairs facilities. It does not include entries that were removed or entered in error. Substance Category Reaction Severity Reaction type Status Date Reported Comments Source No Known Allergies Drug allergy (disorder) active 9 [facility] [place] ([facility] PERCOCET Propensity to adverse reactions to drug (finding) active 5 [facility] Immunizations Combined list of available immunizations from the Department of Defense and Veterans Affairs facilities. Immunization Series Date Given Administered By Site Reaction Lot Number CVX Code Drug Scheduling Assistant Status Comments Source PNEUMOCOCCAL CONJUGATE PCV20, POLYSACCHARID E [id number] CONJUGATE, ADJUVANT, PF 2022 VIRGILIO SHIPLEY RIGHT DELTO ID [id number] complet ed [facility] COVID Vaccine Pfizer 2020 208 PFIZER complet ed COVID Vaccine Pfizer 08/13/21 Given Ambulat ory Pharmac y influenza, high-dose seasonal, quad, pf 2020 197 sanofi pasteur complet ed influenza , high-dose seasonal, quad, pf 08/13/21 Given Ambulat ory Pharmac y COVID-19, mRNA, LNP-S, PF, 30 mcg/0.3 mL dose 2020 ALUL, Pfizer [employer] [place] (PFR) Not Given COVID-19, mRNA, LNP-S, PF, 30 mcg/0.3 mL dose DoD influenza, high-dose, quadrivalent 2020 ALUL, () Not Given influenza , high-dose , quadrival ent DoD zoster vaccine, inactivated 2020 187 GlaxoSmithKli ne complet ed zoster vaccine, inactivat ed 02/03/21 Given Ambulat ory Pharmac y zoster recombinant 2020 ALUL, () Not Given zoster recombina nt DoD COVID Vaccine Pfizer 2020 208 PFIZER complet ed COVID Vaccine Pfizer 12/26/20 Given Ambulat ory Pharmac y COVID-19, mRNA, LNP-S, PF, 30 mcg/0.3 mL dose 2020 PATK[place], [employer] [place] (PFR) Not Given COVID-19, mRNA, LNP-S, [...] injectable, quadrivalent- pf 2019 Chaz miramontes Arm [id number] 150 Seqirus complet ed influenza , injectabl e, quadrival ent-pf 10/25/19 Given Ambulat ory Pharmac y Influenza, injectable, quadrivalent, preservative free 1 2019 Unknown, Provider [id number] 150 Se[employer]irus (SEQ) complet ed Influenza , injectabl e, quadrival ent, preservat heavenly free DoD influenza, injectable, quadrivalent- pf 2017 zzRig ht Arm [id number] 150 [employer]irus complet ed influenza , injectabl e, quadrival ent-pf 07/25/18 Given Ambulat ory Pharmac y influenza, injectable, quadrivalent- pf 2017 [id number] complet ed influenza , injectabl e, quadrival ent-pf 07/25/18 Given Ambulat ory Pharmac y Influenza, injectable, quadrivalent, preservative free 1 2017 VIN DUEÑAS [id number] 150 Seqirus (SEQ) complet ed Influenza , [...] YRS (HISTORICAL) 2016 88 complet ed [facility] TDAP 2016 115 complet ed [facility] influenza, seasonal, injectable-pf 2015 zzLef t Arm [id number] 140 Seqirus complet ed influenza , seasonal, injectabl e-pf 07/30/16 Given Ambulat ory Pharmac y influenza, seasonal, injectable-pf 2015 [id number] complet ed influenza , seasonal, injectabl e-pf 07/30/16 Given Ambulat ory Pharmac y Influenza, seasonal, injectable, preservative free 1 2015 SID VILLAVICENCIO [id number] 140 Seqirus (SEQ) complet ed Influenza , seasonal, injectabl e, preservat heavenly free DoD tetanus, diphtheria, acellular pertu is 2015 zzLef t Arm [id number] 115 GlaxoSmithKli ne complet ed tetanus, diphtheri a, acellular pertussis 04/20/16 Given Ambulat ory Pharmac y tetanus, diphtheria, acellular pertu is 2015 [id number] complet ed tetanus, diphtheri a, acellular pertussis 04/20/16 Given Ambulat ory Pharmac y tetanus toxoid, reduced diphtheria toxoid, and acellular pertu is vaccine, adsorbed 1 2015 YAZAN HIDALGO [id number] 115 [facility] (SKB) complet ed tetanus toxoid, reduced diphtheri a toxoid, and acellular pertussis vaccine, adsorbed DoD zoster vaccine live 2015 zzLef t Arm [id number] 121 Merck & Company Inc complet ed zoster vaccine live 01/05/16 Given Ambulat ory Pharmac y zoster vaccine live 2015 [id number] complet ed zoster vaccine live 01/05/16 Given Ambulat ory Pharmac y zoster vaccine, live 1 2015 STEPHANIE FRAUSTO [id number] 121 Merck (MSD) complet ed zoster vaccine, live DoD influenza, seasonal, injectable-pf 2014 zzLef t Arm [id number] 140 [employer] complet ed influenza , seasonal, injectabl e-pf 07/18/15 Given Ambulat ory Pharmac y influenza, seasonal, injectable-pf 2014 [id number] 140 complet ed influenza , seasonal, injectabl e-pf 07/18/15 Given Ambulat ory Pharmac y Influenza, seasonal, injectable, preservative free 1 2014 YAZAN HIDALGO [id number] 140 [employer] (CSL) complet ed Influenza , seasonal, injectabl e, preservat heavenly free DoD FLU,3 YRS (HISTORICAL) 2011 88 complet ed [facility] influenza, seasonal, injectable-pf 2010 UNK 140 complet ed influenza , seasonal, injectabl e-pf 06/22/11 Given Ambulat ory Pharmac y Influenza, seasonal, [...] free 2010 TIFFANIE WHALEN Sanofi Pasteur Inc. ([facility]) Not Given Influenza , seasonal, injectabl e, preservat heavenly free DoD anthrax vaccine 2009 [id number] [employer] complet ed anthrax vaccine 12/11/09 Given Ambulat ory Pharmac y anthrax vaccine 2009 [id number] [employer] complet ed anthrax vaccine 12/11/09 Given Ambulat ory Pharmac y anthrax vaccine 3 2009 [id number] [employer] [place] (MIP) complet ed anthrax vaccine DoD Novel influenza-H1N 1-09, injectable 2008 [id number] 1 127 complet ed Novel influenza -U8O8-05, injectabl e 09/04/09 Given Ambulat ory Pharmac y Novel influenza-H1N 1-09, injectable 2008 [id number] 1 127 complet ed Novel influenza -U9K0-37, injectabl e 09/04/09 Given Ambulat ory Pharmac y Novel influenza-H1N 1-09, injectable 0 2008 [id number] 1 127 (AG) complet ed Novel influenza -T6O1-72, injectabl e DoD anthrax vaccine 2008 [id number] [employer] complet ed anthrax vaccine 06/12/09 Given Ambulat ory Pharmac y influenza virus vaccine,split 2008 [id number] 1A 15 [employer] complet ed influenza virus vaccine,s plit 06/12/09 Given Ambulat ory Pharmac y influenza virus vaccine,split 2008 [id number] 1A 15 [employer] complet ed influenza virus vaccine,s plit 06/12/09 Given Ambulat ory Pharmac y influenza virus vaccine, split virus (incl. purified surface antigen)-reti red CODE 0 2008 [id number] 1A 15 [employer] (CS) complet ed influenza virus vaccine, split virus (incl. purified surface antigen)- retired CODE DoD anthrax vaccine 2 2008 [id number] [employer] [place] ([facility]) complet ed anthrax vaccine DoD anthrax vaccine 2008 [id number] [employer] complet ed anthrax vaccine 01/09/09 Given Ambulat ory Pharmac y anthrax vaccine 2008 [id number] [employer] complet ed anthrax vaccine 01/09/09 Given Ambulat ory Pharmac y anthrax vaccine 1 2008 [id number] [employer] [place] ([facility]) complet ed anthrax vaccine DoD typhoid Vi capsular polysaccharid e vac 2008 [id number] [facility] complet ed typhoid Vi capsular polysacch aride vac 10/24/08 Given Ambulat ory Pharmac y yellow fever vaccine 2008 [id number] 37 [employer] complet ed yellow fever vaccine 10/24/08 Given Ambulat ory Pharmac y typhoid Vi capsular polysaccharid e vac 2008 [id number] [facility] complet ed typhoid Vi capsular polysacch aride vac 10/24/08 Given Ambulat ory Pharmac y yellow fever vaccine 2008 [id number] 37 [employer] complet ed yellow fever vaccine 10/24/08 Given Ambulat ory Pharmac y yellow fever vaccine 0 2008 [id number] [employer] [place] ([facility]) complet ed yellow fever vaccine DoD typhoid Vi capsular polysaccharid e vaccine 2 2008 [id number] 101 [facility] ([facility]) complet ed typhoid Vi capsular polysacch aride vaccine DoD influenza virus vaccine,split 2007 [id number] 15 GlaxoSmithKli ne complet ed influenza virus vaccine,s plit 09/12/08 Given Ambulat ory Pharmac y poliovirus vaccine, live, oral 2007 UNK 02 [employer] comple t ed polioviru s vaccine, live, oral 09/12/08 Given Ambulat ory Pharmac y poliovirus vaccine, live, oral 2007 UNK 02 complet ed polioviru s vaccine, live, oral 09/12/08 Given Ambulat ory Pharmac y trivalent poliovirus vaccine, live, oral 0 2007 UNK 02 [employer] (MED) complet ed trivalent polioviru s vaccine, live, oral DoD influenza virus vaccine, split virus (incl. purified surface antigen)-reti red CODE 0 2007 [id number] 15 [employer] (SKB) complet ed influenza virus vaccine, split [...] DoD influenza virus vaccine, whole virus 2005 [id number] 16 Unknown complet ed influenza virus vaccine, whole virus 09/13/06 Given Ambulat ory Pharmac y influenza virus vaccine, whole virus 2005 [id number] 16 Unknown complet ed influenza virus vaccine, whole virus 09/13/06 Given Ambulat ory Pharmac y influenza virus vaccine, whole virus 3 2005 [id number] 16 Other (OTH) complet ed influenza virus [...] hepatitis B vaccine 3 2005 UNK 104 ([facility]) complet ed hepatitis A and hepatitis B [...] B vaccine DoD vaccinia (smallpox) vaccine [id number] [facility] complet ed vaccinia (smallpox ) vaccine 12/06/02 Given Ambulat ory Pharmac y vaccinia (smallpox) vaccine 2002 [id number] complet ed vaccinia (smallpox ) vaccine 12/06/02 Given Ambulat ory Pharmac y vaccinia (smallpox) vaccine 2 2002 [id number] [facility] vaccinia (smallpox ) vaccine DoD vaccinia (smallpox) vaccine [id number] [facility] complet ed vaccinia (smallpox ) vaccine 11/30/02 Given Ambulat ory Pharmac y vaccinia (smallpox) vaccine [id number] [facility] complet ed vaccinia (smallpox ) vaccine 11/30/02 Given Ambulat ory Pharmac y vaccinia (smallpox) vaccine 1 2002 [id number] 75 [facility] ([facility]) complet ed vaccinia (smallpox ) vaccine DoD influenza virus vaccine, whole virus 2001 [id number] 16 Unknown complet ed influenza virus vaccine, whole virus 07/12/02 Given Ambulat ory Pharmac y influenza virus vaccine, whole virus 1 2001 [id number] 16 Other (OTH) complet ed influenza virus [...] ADM Date DC Date Status Disposition Source [facility](Ur ology Cl Be) OUTPATIENT [id number] High PSA CURRY NORTON Christiane 10/11 Released w/o Limitations [facility]( Urology Cl Be) [facility](Or tho General Cl FB) OUTPATIENT [id number] Possibl e Dupuytr en's contrac tion HELENE COYLE 10/20 Released w/o Limitations [facility]( Ortho General Cl [facility]) [facility](De rmatology [facility] [place]) OUTPATIENT [id number] Skin lesion forearm VICTORIANO DE LA CRUZ 11/09 Released w/o Limitations [facility]( Dermato logy Clinic [facility]) [facility](Ca rdiology [facility] [place]) OUTPATIENT [id number] Palpita tions GARZABERTIN 11/11 Released w/o Limitations [facility]( [facility] [place]) [facility](Or thopedic [facility]) OUTPATIENT [id number] SARAH BOATENG 12/26 Released w/o Limitations [facility]( Orthope dic Clinic [place]) [facility](Or [facility]opedic [facility]) OUTPATIENT [id number] pre-op appt. dos january 09 SARAH BOATENG 02/06 Released w/o Limitations [facility]( [facility]ope [facility] [place]) [facility](Ph ysical Therapy (Techs)) OUTPATIENT [id number] BHARTI Patel 02/06 Released w/o Limitations [facility]( Physica l Therapy (Techs) ) [facility](Or [facility]opedic [facility]) OUTPATIENT [id number] POP DOS [id number] SARAH BOATENG 02/15 Released w/o Limitations [facility]( [facility]ope [facility] [place]) [facility](Ph ysical Therapy [facility]) OUTPATIENT [id number] ZEINAB OSUNA 02/17 Released w/o Limitations [facility]( Physica l Therapy [place]) [facility](Or thopedic [facility]) OUTPATIENT [id number] F/U scope SARAH BOATENG 04/24 Released w/o Limitations [facility]( Orthope dic [facility] [place]) [facility](Ne urology Clinic [facility]) OUTPATIENT [id number] AUGIE TAVAREZ 05/03 Released w/o Limitations [facility]( Neurolo gy Clinic [place]) [facility](Or thopedic [facility]) OUTPATIENT [id number] SARAH BOATENG 06/13 Released w/o Limitations [facility]( Orthope dic [facility] [place]) [facility](Ca [facility]diology [facility] [place]) OUTPATIENT [id number] Bicuspi d aortic valve and mild aortic regurgi GABRIELA Williamson 11/07 Released w/o Limitations [facility]( [facility] [place]) [facility](Op hthalmolo gy Oculoplas tics [place]) OUTPATIENT [id number] Droppin g eye lid FARZANEH JACOB 11/10 Released w/o Limitations [facility]( Ophthal mology [facility] [place]) [facility](De [facility]ology [facility] [place]) OUTPATIENT [id number] Small lesion back area rule out basal versus squamou s cells KONG FITZPATRICK 11/17 Released w/o Limitations [facility]( [facility]ato [facility]y [facility] [place]) [facility](Or tho Hand Be) OUTPATIENT [id number] Bilater al Dupuytr en's contrac RUSS Kelley 11/30 Released w/o Limitations [facility]( Ortho Hand Be) [facility](Ur ology Cl Be) OUTPATIENT [id number] Persist ent PSA high level CAIN WHALEN W Released w/o Limitations [facility]( Urology Cl Be) [facility](Ur ology Cl Be) TELE CONSULT [id number] lab results CAIN WHALEN W 12/04 [facility]( Urology Cl Be) [facility](Ca [facility]ology [facility] [place]) TELE CONSULT [id number] Lab results GABRIELA PAEZ 12/25 [facility]( [facility] [place]) [facility](Or thopedic Clinic [facility] ) OUTPATIENT [id number] Medial and lateral meniscu s tear ROBERT NAVA 12/25 Released w/o Limitations [facility]( Orthope dic Clinic [facility]) [facility](Op hthalmolo gy Oculoplas tics [place]) OUTPATIENT [id number] fu appt FARZANEH JACOB 01/01 Released w/o Limitations [facility]( Ophthal mology [facility] [place]) [facility](Or thopedic [facility] [place] ) OUTPATIENT [id number] right knee RORO CARTER 01/14 Released with Work/Duty Limitations [facility]( Orthope dic Clinic [facility]) [facility]ology [facility] [place]) TELE CONSULT [id number] Pt states he needs annual echo for [employer] GABRIELA PAEZ 03/12 [facility]( [facility] [place]) [facility](Ur ology Cl Be) TELE CONSULT [id number] CAIN WHALEN W 03/28 [facility]( Urology Cl Be) [facility]ology [facility] [place]) TELE CONSULT [id number] F/U of lab results GABRIELA PAEZ 04/09 [facility]( [facility] [place]) [facility](Ca rdiology [facility]) TELE CONSULT [id number] GABRIELA PAEZ 04/18 [facility]( [facility] [place]) [facility](Ca rdiology [facility]) OUTPATIENT [id number] 52 yo AD [employer] male with a h/o bicuspi d aortic valve MORGAN TEIXEIRA I 05/07 Released w/o Limitations [facility]( [facility] [place]) [facility](Ur ology Cl Be) OUTPATIENT [id number] sat pbx sedatio n CURRY NORTON 05/09 Released w/o Limitations [facility]( Urology Cl Be) [facility](Ur ology Cl Be) OUTPATIENT [id number] CURRY NORTON 05/09 Released w/o Limitations [facility]( Urology Cl Be) [facility](Ca rdiology [facility]) OUTPATIENT [id number] F/U ON 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 GABRIELA PAEZ 05/21 Released w/o Limitations [facility]( [facility] [place]) [facility] [place]) OUTPATIENT [id number] F/U GABRIELA PAEZ 06/18 Released w/o Limitations [facility]( [facility] [place]) [facility](Ca rdiology [facility]) OUTPATIENT [id number] GABRIELA PAEZ 06/18 Released w/o Limitations [facility]( [facility] [place]) [facility](Pa in Mgmt [facility] [place]) OUTPATIENT [id number] cervica l spondyl osis with radicul opathy JOSE RUVALCABA 07/01 Released w/o Limitations [facility]( [facility] [place]) [facility] [place]) TELE CONSULT [id number] F/U - ABEBEI ALEXX JORDAN 07/02 [facility]( [facility] [place](Ne urosurg [facility] [place]) OUTPATIENT [id number] 52y/o 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 Seen b KONG STATON 07/09 Released with Work/Duty Limitations [facility]( Neurosu rg [facility] [place]) [facility] [place]) OUTPATIENT [id number] [facility] JOSE RUVALCABA 07/22 Released w/o Limitations [facility] [place]) [facility] [place]) TELE CONSULT [id number] F/U - [place] JULIAN ALEXX J 07/23 [facility] [place](Ur ology Cl Be) OUTPATIENT [id number] fu per DANIEL Fajardo 08/02 Released w/o Limitations [facility]( Urology Cl Be) [facility](ZZ Neurology Cl WR) OUTPATIENT [id number] CERVICA L RADICUL OPATHY WENDY HALL 08/12 Released w/o Limitations [facility]( ZZNeuro logy Cl WR) [facility](Ur ology Cl [facility]) OUTPATIENT [id number] SAT BX w/ SED., need Pre ABX for Valve DANIEL LAM 09/16 Released w/o Limitations [facility]( [facility]) [facility](Ur [facility]logy [facility]) TELE CONSULT [id number] Prostat e biospy results DANIEL LAM 09/30 [facility]( [facility]) [facility](Op hthalmolo gy Comprehen sive [place]) OUTPATIENT [id number] JOSE ROBERTS 10/24 Released w/o Limitations [facility]( Ophthal [facility]ology [facility]pre[facility] [place]) [facility]Op [facility]metry [facility] [place]) OUTPATIENT [id number] routine TK WESTON 10/31 Released w/o Limitations [facility] [place]Ne [facility]rosurg [facility] [place]) OUTPATIENT [id number] F/U KONG STATON 11/05 Released w/o Limitations [facility]( [facility]su rg [facility] [place]) [facility]Ca [facility]diology [facility] [place]) OUTPATIENT [id number] follow- up JOSE CARTER 11/05 Released w/o Limitations [facility]( [facility] [place](Ca rdiac Procedure [place]) OUTPATIENT [id number] Cardiac Cath MORGAN TEIXEIRA I 11/13 Released w/o Limitations [facility]( Cardiac Procedu re [place]) [facility]Op [facility] [place] OUTPATIENT [id number] move fr 1100 to 1415 ELIANA ARTHUR M 12/23 Released w/o Limitations [facility]( [facility] [place]molo gy Ped [facility] [place]) OUTPATIENT [id number] new appt PADMINI KING 02/17 Released w/o Limitations [facility]( [facility] [place]De [facility]matology [facility] [place] OUTPATIENT [id number] WHO HAS A FAIR SKIN AND HAS SEVERAL EATONSARAH 07/30 Released w/o Limitations [facility]( [facility] [place](De [facility]ology [facility] [place]) TELE CONSULT [id number] PATH RESULTS PADMINI NEGRO 08/06 [facility]( [facility] [place](Au diology Svc [facility]) OUTPATIENT [id number] 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 per pt SRI CARRASCO 08/12 Released w/o Limitations [facility]( Audiolo gy Svc [facility]) [facility](Ca [facility]diology [facility] [place]) OUTPATIENT [id number] follow- up KONG GIORDANO 08/12 Released w/o Limitations [facility] [place](Op hth Neur Cl [facility]) OUTPATIENT [id number] New appt MACEY POPE 09/19 Released w/o Limitations [facility]( Ophth Neur Cl [facility]) [facility](Ot olaryngol ogy [facility] [place]) OUTPATIENT [id number] appt in [facility] dropped from DEMETRIO MEDRANO 09/23 Released w/o Limitations [facility]( [facility]ary [facility]ology [facility] [place]Op hthalmolo gy Comprehen [facility]ive [place]) OUTPATIENT [id number] per BURTON Pelaez 09/30 Released w/o Limitations [facility]( Ophthal [facility]ology Compreh [facility] [place]) [facility](Ca [facility]diology [facility] [place]) TELE CONSULT [id number] Test Results JOSE CARTER 10/16 [facility] [place](Ur ology Cl [facility]) OUTPATIENT [id number] ELEVATE D PSA HARRIET, SCOTT GRUM 10/29 Released w/o Limitations [facility]( [facility]) [facility]Op hthalmolo gy Comprehen [facility]ive [place]) OUTPATIENT [id number] 242 sta fast vf and fu BURTON Miller 10/31 Released w/o Limitations [facility]( Ophthal [facility]ology [facility] [place]) [facility](Op hth Neur Cl [facility]) OUTPATIENT [id number] fu appt- MACEY POPE 10/31 Released w/o Limitations [facility]( Ophth Neur Cl BE) [facility](Ot [facility]aryngol ogy [facility] [place]) OUTPATIENT [id number] preop resid/g rant Novo/t DEMETRIO Ramirez 11/06 Released w/o Limitations [facility]( [facility]ary [facility]ology [facility] [place](AP U Pre-Scree n [facility] [place]) OUTPATIENT [id number] BBF5 MARQUIS MO 11/06 Released w/o Limitations [facility]( [facility]Scr een [facility] [place]) [facility](Ot olaryngol ogy [facility] [place]) OUTPATIENT [id number] pop resid/s orensen Novo/t DEMETRIO Ramirez 11/24 Released w/o Limitations [facility]( [facility]ology [facility] [place](Op hthalmolo gy Comprehen sive [place]) OUTPATIENT [id number] fu appt vf JOSE ROBERTS 12/08 Released w/o Limitations [facility]( Ophthal [facility]ology Compre[facility] [place]) [facility](Ur ology Cl [facility]) TELE CONSULT [id number] left one message at work about psa, good level but % free low, recheck 6 months SCOTT LARIOS OMERO 12/16 [facility]( [facility]rology [facility]) [facility](Ur ology Cl [facility]) TELE CONSULT [id number] lab results SCOTT LARIOS GABYJESSICA 12/19 [facility]( [facility]rology [facility]) [facility](Ca [facility]diology [facility] [place]) TELE CONSULT [id number] Rx refill TK MACDONALD 02/09 [facility]( [facility] [place](Op hthalmolo gy Comprehen sive [place]) OUTPATIENT [id number] and HELENE ARTEAGA 05/28 Released w/o Limitations [facility]( Ophthal [facility]ology Compre[facility] [place]) [facility](Ph ysical Therapy [place]) OUTPATIENT [id number] MENDEZ DAVIS 06/15 Released w/o Limitations [facility]( Physica l Therapy [place]) [facility](Ph ysical Therapy [place]) OUTPATIENT [id number] TONI JORDAN 06/18 Released with Work/Duty Limitations [facility]( Physica l Therapy [place]) [facility](Ph ysical Therapy [place] OUTPATIENT [id number] CHASIDY CESPEDES 06/22 Released w/o Limitations [facility]( Physica l Therapy [place]) [facility](Ph ysical Therapy [place]) OUTPATIENT [id number] CHASIDY CESPEDES 06/25 Released w/o Limitations [facility]( Physica l Therapy [place]) [facility](Ph ysical Therapy [place]) OUTPATIENT [id number] TONI JORDAN 06/29 Released with Work/Duty Limitations [facility]( Physica l Therapy [place]) [facility](Ph ysical Therapy [place]) OUTPATIENT [id number] CHASIDY CESPEDES 07/02 Released w/o Limitations [facility]( Physica l Therapy [place]) [facility](Ph ysical Therapy [place]) OUTPATIENT [id number] MENDEZ DAVIS 07/16 Released w/o Limitations [facility]( Physica l Therapy [place]) [facility](Ph ysical Therapy [place]) OUTPATIENT [id number] LIBBYMARA SPEARSMINE 07/20 Released w/o Limitations [facility]( Physica l Therapy [place]) [facility](Ph ysical Therapy [place]) OUTPATIENT [id number] TK ALAMO Cedric 07/27 Released w/o Limitations [facility]( Physica l Therapy [place]) [facility](Ur ology Cl Be) OUTPATIENT [id number] follow up BANDAR LARIOSY GRUM 08/03 Released w/o Limitations [facility]( Urology Cl Be) [facility](Mt rdiology Clinic [place]) TELE CONSULT [id number] Rx refill MAEGAN SÁNCHEZ 09/08 [facility]( [facility] [place]) [facility](Ur ology Cl Be) TELE CONSULT [id number] Request call back regardi ng elevate d psa and enlarge d prostat e. SCOTT LARIOS GRUM 09/16 [facility]( Urology Cl Be) [facility](Ur ology Cl Be) OUTPATIENT [id number] elevate d psa/enl arged prostat e LANG DELAROSA O 09/17 Released w/o Limitations [facility]( Urology Cl Be) [facility](Ur ology Cl Be) TELE CONSULT [id number] Needs informa tion over prostat e NERI NAIK V 09/17 Referred for Appointment [facility]( Urology Cl Be) [facility](Ph ysical Therapy [place]) OUTPATIENT [id number] MENDEZ Thompson 09/23 Released w/o Limitations [facility]( Physica l Therapy [place]) [facility](Mt [facility]diology [facility] [place]) OUTPATIENT [id number] F/U APPT MAEGAN SÁNCHEZ 09/30 Released w/o Limitations [facility]( [facility] [place](Mt [facility]diology Clinic [place]) OUTPATIENT [id number] FAUSTINO BENOIT 10/12 Released w/o Limitations [facility] [place] OUTPATIENT [id number] SPORTS MEDICIN E - RIGHT SHOULDE R IMPINGE MENT ARON RAMON 10/23 Released w/o Limitations [facility]( [id number] rts Med Prim Care Cl FB) [facility] Practice Blue FB) TELE CONSULT [id number] triage MARY STEIN 01/25 [facility]( Family Practic e Blue FB) [facility] Practice Silver Cl FB) OUTPATIENT [id number] sinus issue/h HELENE Armenta 01/25 Released w/o Limitations [facility]( Family Practic e Silver Cl FB) [facility](Ur ology Cl FB) TELE CONSULT [id number] Pt request ing PSA labs to be entered at [place]. Pt has follow appt 05 mar 2011 SCOTT LARIOS 02/10 [facility]( Urology Cl [facility]) [facility](Ur ology Cl FB) OUTPATIENT [id number] follow up SCOTT LARIOS 03/05 Released w/o Limitations [facility]( Urology Cl FB) [facility](Ca rdiology Clinic [place]) TELE CONSULT [id number] Rx refill MAEGAN SÁNCHEZ 04/30 [facility] [place]( 12Sports Med Prim Care Cl FB) OUTPATIENT [id number] right shoulde r impinge ment RICARDO SANTILLAN 07/05 Released w/o Limitations [facility]( [id number] rts Med Prim Care Cl FB) [facility](Op tometry Cl FB) OUTPATIENT [id number] eye exam BERTHA PERALTA 07/28 Released w/o Limitations [facility]( Optomet ry Cl [facility]) [facility](Md [facility]matology [facility] [place]) OUTPATIENT [id number] VICTORIANO DESHPANDE 08/03 Released w/o Limitations [facility]( [facility] [place]) [facility](Md rmatology [facility]) TELE CONSULT [id number] VICTORIANO DESHPANDE 08/12 [facility]( [facility]y [facility] [place]) [facility](Op tometry Cl FB) OUTPATIENT [id number] BERTHA PERALTA 08/23 Released w/o Limitations [facility]( Optomet ry Cl FB) [facility](Or thopedics Hand Cl FB) OUTPATIENT [id number] MICHAEL PINZON L HAND TARIK LT, KONG Rodriguez 09/01 Released w/o Limitations [facility]( Orthope dics Hand Cl FB) [facility](Ca rdiolog Cl FB) OUTPATIENT [id number] FARZANEH CASTRO 09/06 Released w/o Limitations [facility]( Cardiol og Cl FB) [facility](Ca rdiolog Cl FB) OUTPATIENT [id number] FRANCES PALMER 09/06 Released w/o Limitations [facility]( Cardiol og Cl FB) [facility](Ca rdiolog Cl FB) OUTPATIENT [id number] GXT CURTIS DUPONT 09/22 Released w/o Limitations [facility]( Cardiol og Cl FB) [facility](Op hth Compre FB) OUTPATIENT [id number] EYELIDS ; LACRIMA L SAC, DUCT, GLAND WENDY RAMIREZ 09/23 Released w/o Limitations [facility]( Ophth Compre FB) [facility](Op hthalmolo gy Oculoplas tics [place]) OUTPATIENT [id number] Per JESSENIA Morrissey 10/26 Released w/o Limitations [facility]( Ophthal mology Oculopl astics [place]) [facility](Or thopedics Hand Cl [facility]) OUTPATIENT [id number] LT HAND INJURY, REF BY AGNES JEFFRIES 11/01 Released w/o Limitations [facility]( Orthope dics Hand Cl FB) [facility](Ca rdiolog Cl FB) OUTPATIENT [id number] f/u FARZANEH CASTRO 11/02 Released w/o Limitations [facility]( Cardiol og Cl FB) [facility](Ur ology Cl FB) TELE CONSULT [id number] Pt req refill for Alfuzos in 10mg will 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@ [place] ..pt #[phone] SCOTT LARIOS 11/12 [facility]( Urology Cl [facility]) [facility](Fa jeanette Practice Gold Cl FB) OUTPATIENT [id number] lower pain LEON CISSE 11/18 Released w/o Limitations [facility]( Family Practic e Gold Cl FB) [facility](Fa jeanette Practice Gold Cl [facility]) TELE CONSULT [id number] results LEON CISSE 11/18 [facility]( Family Practic e Gold Cl FB) [facility](Fa jeanette Practice Blue FB) OUTPATIENT [id number] TORIE Villegas 11/18 Released w/o Limitations [facility]( Family Practic e Blue FB) [facility](Fa jeanette Practice Red FB) OUTPATIENT [id number] f/u epididy bola ESPINOSA-P DANDRE CHAPA 11/20 Released w/o Limitations [facility]( Family Practic e Red FB) [facility](Op hthalmolo gy Mandaen jennifer [place]) TELE CONSULT [id number] TK MANDUJANO 11/25 [facility]( Ophthal mology Compreh ensive [place]) [facility](Ca rdiolog Cl FB) OUTPATIENT [id number] Holter Monitor PIOTR MENDEZ 12/14 Released w/o Limitations [facility]( Cardiol og Cl FB) [facility](Or thopedics Hand Cl FB) OUTPATIENT [id number] Xiaflex injecti on/dariu AGNES Herrera 01/18 Released w/o Limitations [facility]( Orthope dics Hand Cl FB) [facility](Or thopedics Hand Cl [facility]) OUTPATIENT [id number] f/u xiaflex injecti on/depu AGNES Herrera 01/19 Released w/o Limitations [facility]( Orthope dics Hand Cl [facility]) [facility](Oc cup Therap FB) OUTPATIENT [id number] dupuytr TK Graf 01/19 Released w/o Limitations [facility]( Occup Therap FB) [facility](Op tometry Cl FB) OUTPATIENT [id number] vf/phot os BERTHA PERALTA 03/02 Released w/o Limitations [facility]( Optomet ry Cl FB) [facility](Or thopedics Hand Cl FB) OUTPATIENT [id number] F/U LT HAND AGNES BYRD 04/06 Released w/o Limitations [facility]( Orthope dics Hand Cl FB) [facility](Ca rdiolog Cl FB) TELE CONSULT [id number] julieth caputo FARZANEH CASTRO 04/27 [facility]( Cardiol og Cl FB) [facility](AM H M04B [place]) OUTPATIENT [id number] persist ent cough ADIEL JACKSON 05/20 Immediate Referral [facility]( [facility] [place]) [facility](AM [facility] [place] OUTPATIENT [id number] perscri ptionsroberta for special ty ОЛЬГА HUMPHRIES 06/03 Released w/o Limitations [facility]( AMH [facility] [place]) [facility](AM H [facility] [place]) TELE CONSULT [id number] Notes Entered by: RUSS MARS 16 Jun 2015 1438 ------- ------- ------- ------- -- Referra l ОЛЬГА Mistry 06/16 [facility]( AMH [facility] [place]) [facility](AM H [facility] [place] OUTPATIENT [id number] f/u appt from all entered referra ceci and tori arndt current medicat ions ОЛЬГА HUMPHRIES 06/20 Released w/o Limitations [facility]( AMH M04B [place]) [facility](IB BH CL Ra) OUTPATIENT [id number] RAVEN Brice 06/24 Released w/o Limitations [facility]( IB BH CL Ra) [facility](Ur ol Prostate Center Be) OUTPATIENT [id number] BPH GOPAL PUCKETT 07/08 Released w/o Limitations [facility]( Urol Prostat e Center Be) [facility](Ca rdiology Clinic [place]) OUTPATIENT [id number] BICUSPI D AORTIC VALVE MAEGAN SÁNCHEZ 07/10 Released w/o Limitations [facility](De rmatology [facility] [place]) OUTPATIENT [id number] skin evaluat ion SHEEBA TRAN 07/22 Released w/o Limitations [facility]( [facility]y [facility] [place]) [facility](Ur ol Prostate Center Be) TELE CONSULT [id number] Notes Entered by: Law KAM 22 Jul 2015 0956 ------- ------- ------- ------- -- Pls call about PSA results GOPAL PUCKETT 07/22 [facility]( Urol Prostat e Center Be) [facility](Ne urosurg Clinic [place]) OUTPATIENT [id number] CERVICA L RADICUL OPATHY C8 (C7-T1) TK LEO 07/30 Released w/o Limitations [facility]( Neurosu rg [facility] [place]) [facility](Ur Prostate Center ) TELE CONSULT [id number] Notes Entered by: Law KAM 04 Aug 2015 1505 ------- ------- ------- ------- -- Pls call about labs GOPAL PUCKETT 08/04 [facility]( Urol Prostat e Center Be) [facility](Fa jeanette Practice Gold FX) OUTPATIENT [id number] f/u r knee pain LASHAUN MIN H 08/07 Released w/o Limitations [facility]( Family Practic e Gold FX) [facility](Op tometry [facility] [place]) OUTPATIENT [id number] eye exam DICK LAZCANO 08/19 Released w/o Limitations [facility]( [facility]omet ry [facility] [place]) [facility](Ne urosurg Clinic [place]) OUTPATIENT [id number] Per TK Lua 08/20 Released w/o Limitations [facility]( [facility]su rg [facility] [place]) [facility](Te le-Neuros urg Be) OUTPATIENT [id number] PT VISHAL Cohen 08/20 Released w/o Limitations [facility]( Tele-Ne urosurg Be) [facility](Pa in Mgmt Clinic [place]) OUTPATIENT [id number] Cervica l [place] per HELENE Ann 08/21 Released w/o Limitations [facility]( [facility] Mgmt [facility] [place]) [facility](Fa jeanette Practice Gold [place]) OUTPATIENT [id number] rx renewal (per pt req) EUGENIOSHAYNA MIN H 09/23 Released w/o Limitations [facility]( Family Practic e Gold [facility]) [facility](Fa jeanette Practice Gold [facility]) OUTPATIENT [id number] f/u LILLIAN OLIVIA V 10/02 Released w/o Limitations [facility]( Family Practic e Gold FX) [facility](Ne urosurg [facility] [place]) OUTPATIENT [id number] F/up TK LEO Tony 10/08 Released w/o Limitations [facility]( [facility]su rg [facility] [place]) [facility](Po diatry Clinic [place]) OUTPATIENT [id number] Pain in right ankle and joints of right foot TABITHAGISELLA 10/09 Released w/o Limitations [facility]( Podiatr y [facility] [place]) [facility](Or thotics Cl BE) OUTPATIENT [id number] Notes Entered by: QUINTON ALARCON 09 Oct 2015 1029 ------- ------- ------- ------- -- custom orthoti cs GISELLA SANTILLAN 10/09 Released w/o Limitations [facility]( Orthoti cs Cl BE) [facility](So cial Work Adult [place]) OUTPATIENT [id number] initial LANCE YAP 10/10 Released w/o Limitations [facility]( Social Work Adult [place] ) [facility](Fa jeanette Practice Gold [facility]) TELE CONSULT [id number] Notes Entered by: Christiane QUESADA 17 Oct 2015 0948 ------- ------- ------- ------- -- Relay Health Message LILLIAN OLIVIA V 10/17 [facility]( Family Practic e Gold FX) [facility](Op tometry [facility] [place]) OUTPATIENT [id number] HVF and IOP Check per LCDICK Wilder 11/06 Released w/o Limitations [facility]( [facility]omet [facility] [place]) [facility](Sp ts Med Prim Care Cl FB) OUTPATIENT [id number] Pain in right knee ASHLYN RODRÍGUEZ P 11/11 Released w/o Limitations [facility]( Spts Med Prim Care Cl FB) [facility](Fa jeanette Practice [place] [facility]) OUTPATIENT [id number] CLINT Reilly 11/28 Released w/o Limitations [facility]( Family Practic e [place] FX) [facility](Ur ol Prostate Center Be) TELE CONSULT [id number] Notes Entered by: YORDAN PUCKETT 02 Dec 2015 1709 ------- ------- ------- ------- -- Testost ershay replace ment GOPAL PUCKETT 12/01 [facility]( Urol Prostat e Center Be) [facility](So cial Work Adult [place]) OUTPATIENT [id number] f/u LANCE YAP 12/08 Released w/o Limitations [facility]( Social Work Adult [place] ) [facility](Op tometry [facility] [place]) OUTPATIENT [id number] HVF 24-2 OU W/ EYELID TAPING PER DICK WILDER 12/16 Released w/o Limitations [facility]( [facility]omet [facility] [place]) [facility](Ph ysical Therapy Cl Fx) OUTPATIENT [id number] Pain in right knee LIZZETTE BAIN E 12/21 Released w/o Limitations [facility]( Physica l Therapy Cl Fx) [facility](Ca rdiology [facility] [place]) OUTPATIENT [id number] follow- up TK RIVERA 12/24 Released w/o Limitations [facility]( Cardiol ogy [facility] [place]) [facility](Im munizatio n [place]) OUTPATIENT [id number] Notes Entered by: VINEET MILAN 05 Jan 2016 1024 ------- ------- ------- ------- -- yanick FRAUSTO SI 01/04 Released w/o Limitations [facility]( Immuniz ation [place] ) [facility](Ur ol Prostate Center Be) OUTPATIENT [id number] cyst AUGUSTA HENDERSON 01/07 Released w/o Limitations [facility]( Urol Prostat e Center Be) [facility](Fa jeanette Practice Gold FX) OUTPATIENT [id number] flu symptom s OLIVIA, LILLIAN V 01/13 Released w/o Limitations [facility]( Family Practic e Gold FX) [facility](Fa jeanette Practice Gold FX) OUTPATIENT [id number] cough OLIVIA, LILLIAN V 01/15 Released w/o Limitations [facility]( Family Practic e Gold FX) [facility](Fa jeanette Practice Gold FX) OUTPATIENT [id number] Chest congest ion MIN WILKS H 01/16 Released w/o Limitations [facility]( Family Practic e Gold FX) [facility](Fa jeanette Practice [place] FX) OUTPATIENT [id number] flu/ loss sense of taste and smell MARIVEL FUNG S 01/21 Released w/o Limitations [facility]( Family Practic e [place] [facility]) [facility](Fa jeanette Practice Gold FX) OUTPATIENT [id number] poss flu OLIVIA, LILLIAN V 01/29 Released w/o Limitations [facility]( Family Practic e Gold FX) [facility] [place] OUTPATIENT [id number] Dermato chalasi s of right upper eyelid BENJI AGUIRRE 01/29 Released w/o Limitations [facility]( Ophthal mology Compreh ensive [place]) [facility](Ur [facility] Prostate Center ) OUTPATIENT [id number] 1 month f/u AUGUSTA HENDERSON F 02/02 Released w/o Limitations [facility]( Urol Prostat e Center Be) [facility](Op hthalmolo gy Oculoplas tics [place]) OUTPATIENT [id number] DERMATO CHALASI S KOLBY LOZADA 02/11 Released w/o Limitations [facility]( Ophthal mology Oculopl astics [place]) [facility](Ca rdiology Clinic [place]) TELE CONSULT [id number] TK HAMLIN 03/08 [facility]( Cardiol ogy [facility] [place]) [facility](Fa jeanette Practice Gold FX) OUTPATIENT [id number] anxiety OLIVIA, LILLIAN V 03/10 Released w/o Limitations [facility]( Family Practic e Gold FX) [facility](Ot olaryngol ogy Clinic [place]) OUTPATIENT [id number] Anosmia TK QUINONES Tony 03/23 Released w/o Limitations [facility]( [facility]olary [facility]ology [facility] [place]) [facility]) TELE CONSULT [id number] Notes Entered by: KERON BLOCK 23 Mar 2016 1335 ------- ------- ------- ------- -- Plz call re: testost erone ck-or another order to ck. 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 04/01 Released w/o Limitations [facility]( Social Work Adult [place] ) [facility]) TELE CONSULT [id number] Notes Entered by: YORDAN PUCKETT 19 Apr 2016 1559 ------- ------- ------- ------- -- Rx request for testost ershay GOPAL PUCKETT 04/19 [facility]( Urol Prostat e Center ) [facility](Fa jeanette Practice Gold FX) OUTPATIENT [id number] heart burn/f/ u per pt req LILLIAN OLIVIA V 04/20 Released w/o Limitations [facility]( Family Practic e Gold FX) [facility](Fa jeanette Practice Gold FX) TELE CONSULT [id number] LILLIAN OLIVIA V 04/23 [facility]( Family Practic e Gold FX) [facility](Op hthalmolo gy Oculoplas tics [place]) OUTPATIENT [id number] pre surgica l visit, KOLBY LOZADA 05/25 Released w/o Limitations [facility]) TELE CONSULT [id number] Notes Entered by: YORDAN PUCKETT A 15 Jun 2016 0937 ------- ------- ------- ------- -- PSA elevati on GOPAL PUCKETT 06/15 [facility]( Urol Prostat e Center Be) [facility](Fa jeanette Practice Gold FX) OUTPATIENT [id number] f/u LILLIAN OLIVIA V 07/07 Released w/o Limitations [facility]( Family Practic e Gold FX) [facility](Ur ol Prostate Center Be) OUTPATIENT [id number] f/u GOPAL PUCKETT Jennifer 07/16 Released w/o Limitations [facility]( Urol Prostat e Center Be) [facility](Op hthalmolo gy Oculoplas tics [place]) TELE CONSULT [id number] Notes Entered by: MARCIAL LOZADA 20 Jul 2016 1855 ------- ------- ------- ------- -- Pre-op questio ns KOLBY LOZADA 07/20 [facility]( Ophthal mology Oculopl astics [place]) [facility](Fa jeanette Practice Gold [facility]) OUTPATIENT [id number] inshaveni LILLIAN Rhodes V 07/23 Released w/o Limitations [facility]( Family Practic e Gold FX) [facility](Op hthalmolo gy Oculoplas tics [place]) OUTPATIENT [id number] Notes Entered by: JESSENIA CHRISTIANSON 26 Jul 20162025 ------- ------- ------- ------- -- Op Report KOLBY LOZADA 07/27 Released w/o Limitations [facility]( Ophthal mology Oculopl astics [place]) [facility](Fa jeanette Practice Gold FX) TELE CONSULT [id number] Notes Entered by: Christiane QUESADA 29 Jul 2016 1256 ------- ------- ------- ------- -- LILLIAN SOUSA V 07/29 [facility]( Family Practic e Gold FX) [facility](Op hthalmolo gy Oculoplas tics [place]) OUTPATIENT [id number] 1 wk POP KIERRA, KOLBY 08/03 Released w/o Limitations [facility]( Ophthal mology Oculopl astics [place]) [facility] Gold FX) TELE CONSULT [id number] Notes Entered by: BROOKE HUNT 18 Aug 2016 1027 ------- ------- ------- ------- -- Rx refill LILLIAN OLIVIA V 08/18 [facility]( Family Practic e Gold FX) [facility](Op hthalmolo gy Oculoplas tics [place]) OUTPATIENT [id number] SEE RANKIN/SEBAS [place] KIERRAKOLBY 09/06 Released w/o Limitations [facility]( Ophthal mology Oculopl astics [place]) [facility](Mt rdiology Clinic [place]) OUTPATIENT [id number] Notes Entered by: SOHAIL CARDENAS 30 Sep 2016 0938 ------- ------- ------- ------- -- DECADE STUDY ENROLLM VITOR ALVARES 09/30 Released w/o Limitations [facility]( [facility]iol [facility]gy [facility] [place]) [facility](Mt [facility]diology [facility] [place]) OUTPATIENT [id number] Notes Entered by: SOHAIL CARDENAS 30 Sep 2016 0939 ------- ------- ------- ------- -- ENDOTHE LIX ASSESSM VITOR ALVARES 09/30 Released w/o Limitations [facility]( [facility]gy [facility] [place]) [facility] Gold FX) OUTPATIENT [id number] Notes Entered by: ANITA WANG 02 Oct 2016 1315 ------- ------- ------- ------- -- walk-in -possib le strep?? NAKUL LAZCANO 10/02 Released w/o Limitations [facility]( [facility]) [facility] TELE CONSULT [id number] ITALO GOPAL A 10/15 [facility]( [facility]) [facility]) TELE CONSULT [id number] Notes Entered by: HAY MORALES 20 Oct 2016 0956 ------- ------- ------- ------- -- med.ref ill LILLIAN OLIVIA V 10/20 [facility] OUTPATIENT [id number] insomni a fu (resche dule) LILLIAN OLIVIA V 11/02 Released w/o Limitations [facility]( Family Practic e [facility]) [facility]) OUTPATIENT [id number] anxiety , depress ion LANCE YAP 11/08 Released w/o Limitations [facility]( [facility] ) [facility]) TELE CONSULT [id number] Notes Entered by: CARY HERNANDEZ 09 Nov 2016 1747 ------- ------- ------- ------- -- [facility] referLILLIAN Crockett V 11/09 [facility] e Gold FX) [facility](Fa [facility]anette Practice Gold FX) TELE CONSULT [id number] Notes Entered by: Christiane QUESADA 19 Nov 2016 0821 ------- ------- ------- ------- -- med renewal LILLIAN OLIVIA V 11/19 [facility]( Family Pract[facility] FX) [facility]ette [facility] Gold FX) OUTPATIENT [id number] f/u on insomni a and anxiety LILLIAN OLIVIA V 12/06 Released w/o Limitations [facility]( Family Practic e Gold FX) [facility]) OUTPATIENT [id number] 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 12/10 Released w/o Limitations [facility]( [facility] ) [facility] Gold FX) TELE CONSULT [id number] Notes Entered by: CARY HERNANDEZ 10 Dec 2016 1748 ------- ------- ------- ------- -- [facility] follow- up LILLIAN OLIVIA V 12/10 [facility]( Family Practic e [facility] FX) [facility]) TELE CONSULT [id number] LILLIAN OLIVIA V 12/17 [facility]( [facility] e [place] ) [facility] Gold FX) TELE CONSULT [id number] Notes Entered by: BROOKE HUNT 27 Dec 2016 1739 ------- ------- ------- ------- -- Derm LILLIAN Torres V 12/27 [facility]( Family Practic e Gold FX) [facility]) TELE CONSULT [id number] Notes Entered by: HUNTER PABON 07 Jan 2017 0851 ------- ------- ------- ------- -- cough/b mary is HAY Thornton 01/07 Referred for Appointment [facility]( [facility] ) [facility] Gold FX) OUTPATIENT [id number] cough LILLIAN OLIVIA V 01/08 Released w/o Limitations [facility]( Family Practic e [facility] FX) [facility]) OUTPATIENT [id number] f/u GOPAL PUCKETT 01/10 Released w/o Limitations [facility]( [facility]) [facility](Fa je[facility]ette Practice Gold FX) OUTPATIENT [id number] LILLIAN OLIVIA V 01/21 Released w/o Limitations [facility]( Family Practic e Gold FX) [facility] OUTPATIENT [id number] Actinic keratos is KVNG WOOD Elian 01/25 Released w/o Limitations [facility]( [facility] [place] [facility]) [facility]ette [facility] Gold FX) OUTPATIENT [id number] OLIVIA, LILLIAN Gtz 03/15 Released w/o Limitations [facility]( Family Practic e Gold FX) [facility]) OUTPATIENT [id number] f/u LANCE YAP 03/29 Released w/o Limitations [facility]( [facility] ) [facility] Gold FX) TELE CONSULT [id number] Notes Entered by: CARY HERNANDEZ 01 Apr 20172053 ------- ------- ------- ------- -- [facility] follow- up CARY MIJARES 04/02 [facility]( Family Practic e Gold FX) [facility]) TELE CONSULT [id number] Notes Entered by: VALERIO THOMAS 02 May 2017 0933 ------- ------- ------- ------- -- Request ing medicat ion Fortest a-10mg. [facility]. GOPAL PUCKETT 05/02 [facility]( [facility]) [facility]) TELE CONSULT [id number] Notes Entered by: VALERIO THOMAS 09 May 2017 1242 ------- ------- ------- ------- -- Request ing medicat ion Forgest a. [facility]. GOPAL PUCKETT 05/09 [facility]( [facility]) [facility] [place]) OUTPATIENT [id number] Thoraci c aortic aneurys m, without rupture KT RIVERA 05/13 Released w/o Limitations [facility]( [facility] [place] [facility]) [facility] Gold FX) TELE CONSULT [id number] Notes Entered by: EDDA WONG 17 May 2017 1154 ------- ------- ------- ------- -- RX LILLIAN OLIVIA V 05/17 [facility]( Family [facility]) [facility]) TELE CONSULT [id number] Notes Entered by: Esther WAGNER 18 May 2017 1341 ------- ------- ------- ------- -- Patient Contact ed VIRI WAGNER 05/18 [facility] Gold FX) OUTPATIENT [id number] follow up LILLIAN OLIVIA V 05/26 Released w/o Limitations [facility]( Family Practic e [facility] FX) [facility]) TELE CONSULT [id number] Notes Entered by: Esther WAGNER 27 May 2017 0954 ------- ------- ------- ------- -- Schedul ed For A OC VIRI WAGNER 05/27 [facility]) TELE CONSULT [id number] Notes Entered by: Esther WAGNER 28 Jun 2017 0953 ------- ------- ------- ------- -- Reminde r Call For A Procedu re Appoint ment VIRI WAGNER 06/28 [facility] Gold FX) OUTPATIENT [id number] agustín miramontes in left hand at [facility] LLILIAN OLIVIA V 06/28 Released w/o Limitations [facility]( Family Pract[facility] Gold FX) [facility] Practice Gold FX) TELE CONSULT [id number] Notes Entered by: SILVIA TRAN 04 Jul 2017 1247 ------- ------- ------- ------- -- Med Refll LILLIAN OLIVIA V 07/04 [facility]( Family Practic e Gold FX) [facility](Or thopedics Hand [facility] FB) OUTPATIENT [id number] Contrac sarah, left hand DEMETRIO TERRY Esther 07/14 Released w/o Limitations [facility]( Orthope dics [facility]) [facility] Practice Gold FX) OUTPATIENT [id number] throat pain LILLIAN OLIVIA V 08/05 Released w/o Limitations [facility]( Family [facility]ic e Gold FX) [facility]) TELE CONSULT [id number] Notes Entered by: YORDAN PUCKETT 05 Aug 2017 1349 ------- ------- ------- ------- -- MRI results GOPAL PUCKETT 08/05 [facility]( [facility]) [facility]) OUTPATIENT [id number] mri guided bxp [address] 08/09 Released w/o Limitations [facility]( [facility]) [facility](Fa jeanette Practice Gold FX) TELE CONSULT [id number] Notes Entered by: CHAYO WIGGINS 27 Aug 2017 1222 ------- ------- ------- ------- -- medicat ion LILLIAN OLIVIA V 08/27 [facility]( [facility] Gold FX) [facility] Practice Gold FX) TELE CONSULT [id number] Notes Entered by: SILVIA TRAN 29 Aug 2017 0939 ------- ------- ------- ------- -- Med Refill LILLIAN OLIVIA V 08/29 [facility]( [facility] Gold FX) [facility] Gold FX) OUTPATIENT [id number] hearing issues and audiolo gy referra l LILLIAN OLIVIA V 09/08 Released w/o Limitations [facility]( Family Practic e Gold FX) [facility]) OUTPATIENT [id number] MRI Guided Biopsy [address] 09/15 Released w/o Limitations [facility]( [facility]) [facility](Ur ology Cl Be) TELE CONSULT [id number] [address] 09/22 [facility]( Urology Cl Be) [facility] [place]) OUTPATIENT [id number] Nontoxi c single thyroid nodule JAI WALKER 09/22 Released w/o Limitations [facility]( Otolary [facility]) [facility](Fa [facility]) TELE CONSULT [id number] LILLIAN OLIVIA V 09/27 [facility]( [facility] [place] ) [facility]) OUTPATIENT [id number] Multi-d [address] 10/31 Released w/o Limitations [facility]( [facility]rol [facility]stat [facility]) [facility](Ma le Inf/Sexua l Health Be) OUTPATIENT [id number] multi d NACHO OCASIO 10/31 Released w/o Limitations [facility]( Male Inf/Sex ual Health Be) [facility](Ur [facility]state [facility] Be) OUTPATIENT [id number] Notes Entered by: Esther LOPEZ 31 Oct 2017 1102 ------- ------- ------- ------- -- Multi-D iscipli constanza Prostat e Cancer Clinic SOFIYA LOPEZ 10/31 Released w/o Limitations [facility]( Urol Prostat e [facility] Be) [facility](Ra d Oncology [facility] BE) OUTPATIENT [id number] PROSTAT E CLINIC NERI AQUINO 10/31 Released w/o Limitations [facility]( Rad Oncolog y [facility]) [facility] [place]) TELE CONSULT [id number] Notes Entered by: Tony VELASQUEZ 31 Oct 2017 1432 ------- ------- ------- ------- -- PATIENT REQ ECHO - NO CONSULT IN SYSTEM ZOHREH GABRIEL 10/31 [facility]( Cardiol [facility]gy Clinic [facility]) [facility]) TELE CONSULT [id number] Notes Entered by: YORDAN PUCKETT 07 Nov 2017 0754 ------- ------- ------- ------- -- Prostat e cancer GOPAL PUCKETT 11/07 [facility]( [facility]) [facility](Or thopedics Hand Cl FB) OUTPATIENT [id number] f/u dupuytr en's contrac ture on L hand ZIYAD MEIER 11/10 Released w/o Limitations [facility]( Orthope dics Hand Cl FB) [facility]( [employer] [facility]) TELE CONSULT [id number] Notes Entered by: Christiane QUESADA 11 Nov 2017 0944 ------- ------- ------- ------- -- med LILLIAN Wooten V 11/11 [facility]( Family Practic e Gold FX) [facility](Or thopedics Hand Cl FB) OUTPATIENT [id number] injecti ons for Dupuytr ens contrac ture ZIYAD MEIER 11/22 Released w/o Limitations [facility]( Orthope dics Hand Cl FB) [facility](Or thopedics Hand Cl FB) OUTPATIENT [id number] injecti on for Dupuytr ens ZIYAD MEIER 11/23 Released w/o Limitations [facility]( Orthope dics Hand Cl FB) [facility] [place]) TELE CONSULT [id number] Notes Entered by: Bo AQUINO 30 Nov 2017 1823 ------- ------- ------- ------- -- Barium swallow results NACHO AQUINO 11/30 Medication Refill Forwarded [facility]( Otolary ngology [facility] a) [facility](Fa [email or web address] Gold FX) TELE CONSULT [id number] Notes Entered by: Christiane QUESADA 23 Dec 2017 1740 ------- ------- ------- ------- -- med renewal NIK EVANS Bety 12/23 [facility]( Family Practic e Gold FX) [facility](Ur [facility]state [facility] Be) TELE CONSULT [id number] Notes Entered by: YORDAN PUCKETT 27 Dec 2017 1229 ------- ------- ------- ------- -- lab results GOPAL PUCKETT 12/27 [facility]( [facility]) [facility](Or thopedics Hand Cl FB) OUTPATIENT [id number] f/u left hand ZIYAD MEIER 01/27 Released w/o Limitations [facility]( Orthope dics Hand Cl [facility]) [facility] [place]) OUTPATIENT [id number] NACHO GILLIS 01/31 Released w/o Limitations [facility]( [facility] [place] [facility]) [facility](Or thopedics Hand Cl FB) OUTPATIENT [id number] f/u injecti on ZIYAD MEIER 02/15 Released w/o Limitations [facility]( Orthope dics Hand Cl FB) [facility](Or thopedics Hand Cl FB) OUTPATIENT [id number] F/U ZIYAD MEIER 02/21 Released w/o Limitations [facility]( Orthope dics Hand Cl FB) [facility](Fa jeanette Practice Gold FX) OUTPATIENT [id number] feeling dizzy, high blood pressur e LILLIAN OLIVIA V 02/23 Released w/o Limitations [facility]( Family Practic e Gold FX) [facility]) OUTPATIENT [id number] f/u [address] 03/06 Released w/o Limitations [facility]( [facility]) [facility](Fa jeanette Practice Gold FX) OUTPATIENT [id number] sinus infecti on, sore throat, lung congest ion, cough MIN WILKS 03/10 Released w/o Limitations [facility]( Family Practic e Gold FX) [facility]) TELE CONSULT [id number] Notes Entered by: YORDAN PUCKETT 03 Apr 2018 1440 ------- ------- ------- ------- -- prostat e cancer GOPAL PUCKETT 04/03 [facility]( [facility]) [facility](Or thopedics Hand Cl FB) OUTPATIENT [id number] F/U Dupatri ashley copntra reji ILRATREVOR ZIYAD Esther 04/04 Released w/o Limitations [facility]( Orthope dics Hand Cl FB) [facility](Fa jeanette Practice Gold FX) TELE CONSULT [id number] Notes Entered by: EDDA WONG 18 May 2018 1715 ------- ------- ------- ------- -- RX LILLIAN OLIVIA V 05/18 [facility]( Family Practic e Gold FX) [facility]) TELE CONSULT [id number] Notes Entered by: YORDAN PUCKETT 17 Aug 2018 0728 ------- ------- ------- ------- -- prostat e cancer GOPAL PUCKETT 08/17 [facility]( [facility]) [facility](Fa jeanette Practice Gold FX) TELE CONSULT [id number] Notes Entered by: Christiane QUESADA 18 Aug 2018 1121 ------- ------- ------- ------- -- med refill LILLIAN OLIVIA V 08/18 [facility]( Family Practic e Gold FX) [facility](Fa jeanette Practice Gold FX) TELE CONSULT [id number] Notes Entered by: JOSE AGUILAR V 06 Sep 2018 1233 ------- ------- ------- ------- -- Med refill/ PE CORWIN LILLIAN V 09/06 [facility]( Family Practic e Gold FX) [facility](Ur ol Prostate Center Be) OUTPATIENT [id number] f/u prostat e ARIANAKATHRYN HUNTER 09/08 Released w/o Limitations [facility]( Urol Prostat e Center Be) [facility] [place]) TELE CONSULT [id number] Notes Entered by: JEYSON SHAIKH,SANTOS Jimenez 11 Sep 2018 1326 ------- ------- ------- ------- -- FOR REGARDI NGT A MRI TEST RESULT. POC [phone] (CELL) THANK YOU NACHO GILLIS 09/11 [facility]( Cardiol ogy Clinic [facility]) [facility](Fa jeanette Practice Gold FX) OUTPATIENT [id number] annual check up LILLIAN OLIVIA V 09/22 Released w/o Limitations [facility]( Family Practic e Gold FX) [facility](Ur ology Cl Be) TELE CONSULT [id number] 10/05 [facility]( Urology Cl Be) [facility](Ur ol Prostate Center Be) OUTPATIENT [id number] 11/01 Released w/o Limitations [facility]( Urol Prostat e Center Be) [facility](Fa jeanette Practice Gold FX) TELE CONSULT [id number] Notes Entered by: Christiane QUESADA 16 Nov 2018 1132 ------- ------- ------- ------- -- med refill OLIVIALILLIAN V 11/16 [facility]( Family Practic e Gold FX) [facility](Fa jeanette Practice Gold FX) OUTPATIENT [id number] wart treatme nt LILLIAN OLIVIA V 12/01 Released w/o Limitations [facility]( Family Practic e Gold FX) [facility](Ph ys Therapy CL BE) OUTPATIENT [id number] Plantar fascial fibroma tosis per ptSHERITA IGNACIO 01/11 Released w/o Limitations [facility]( Phys Therapy CL BE) [facility] [place]) OUTPATIENT [id number] Actinic keratos is per pt DEMETRIO BOBBY N 01/15 Released w/o Limitations [facility]( [facility] [place] [facility]) [facility](Or thotics Cl BE) OUTPATIENT [id number] custom orthoti cs ZEVK PADMINI N 01/17 Released w/o Limitations [facility]( Orthoti cs Cl BE) [facility](Fa jeanette Practice Gold FX) OUTPATIENT [id number] 7 f/u plantar wart,Rx OLIVIA, LILLIAN V 02/08 Released w/o Limitations [facility]( Family Practic e Gold FX) [facility](Ph ysical Medicine Clinic ) OUTPATIENT [id number] Pain in left foot ROMEO FORRESTERA M 02/21 Released w/o Limitations [facility]( Physica l Medicin e Clinic Be) [facility](Po diatry Clinic [facility] ) OUTPATIENT [id number] Pain in unspeci fied ankle and joints of unspeci fied foot JENNIFER RODRIGUEZIAS J 03/21 Released w/o Limitations [facility]( Podiatr y Clinic [facility]) [facility](Ur [facility]state [facility] Be) OUTPATIENT [id number] 7 f/u b4 move [address] 03/26 Released w/o Limitations [facility]( Urol Prostat [facility] Be) [address] [place] [address] Group Chan [facility]URH[facility] ([facility]Sco tt [facility] Tm Blue) OUTPATIENT [id number] just moved to area, meet PCM, discuss scripts , special ists needs LAW, JELLY D 05/29 Released w/o Limitations [address] [place] [address] Group [facility] ([facility])(S cott [facility] Blue) [address] [place] [address] Group Chan [facility] ([facility])(Sco tt [facility] Tm Blue) OUTPATIENT [id number] 1 neck and arm pain/uc c/er refusal /[phone] AYAN MANNING 06/25 Released w/o Limitations [facility] Group Chan [place] ([facility])(S cott [facility] Tm Blue) [address] [place] [address] Group Chan [facility] ([facility])(S[facility] Tm Blue) OUTPATIENT [id number] infecte d thumb, left hand JHOANA CASEY 07/11 Released w/o Limitations [facility] Medical Group Chan CRISTINAB ([facility])(S cott [facility] Blue) [address] [place] [address] Group Chan [facility]ST[facility]AB [facility]Sco tt [facility] Tm Blue) TELE CONSULT [id number] Notes Entered by: Jennifer CASEY 12 Jul 2019 1231 ------- ------- ------- ------- -- Lab results JHOANA CASEY 07/12 Other Not Elsewhere Classified [facility] Medical Group Chan [facility]RISTINAB [facility]S [facility] Tm Blue) [address] [place] [address] Group Chan [facility]RISTINAB [facility]Sco tt [facility] Tm Blue) TELE CONSULT [id number] Notes Entered by: ADRIÁN GREGORY 24 Jul 2019 1147 ------- ------- ------- ------- -- Referra l Renewal / Law/ -GAY White 07/24 Other Not Elsewhere Classified [facility] Medical Group Chan CRISTINAB [facility]S [facility] Blue) [address] [place] [address] Group Chan CRISTINAB [facility]Sco tt [facility] Tm Blue) TELE CONSULT [id number] Notes Entered by: MARYANNE HAMILTON 06 Aug 2019 1328 ------- ------- ------- ------- -- Network Results SURG 9 SDG JHOANA CASEY 08/06 Other Not Elsewhere Classified [facility] Medical Group Chan CRISTINAB [facility]S cott [facility]edge[facility] Tm Blue) [facility] Chan CRISTINAB [facility]Sco tt [facility] Tm Blue) TELE CONSULT [id number] Notes Entered by: Jennifer CASEY NNJennifer 09 Aug 2019 1041 ------- ------- ------- ------- -- u/s results JHOANA CASEY 08/09 Other Not Elsewhere Classified [address] [place] [address] [facility])(S [facility] Blue) [address] [place] [address] [facility])(Sco tt [facility]) OUTPATIENT [id number] Lunesta Refill DARRELL MÉNDEZ 08/17 Released w/o Limitations [address] [place] [address] [facility])([facility]) [address] [place] [address])(Sco tt [facility]) TELE CONSULT [id number] Notes Entered by: Law TRONCOSO 27 Aug 2019 0921 ------- ------- ------- ------- -- Network results Cardiol ogy 019 RADU LIRIANO 08/27 Referred for Appointment [address] [place] [address])([facility] Blue) [address] [place] [address])(Sco tt [facility]) TELE CONSULT [id number] Notes Entered by: AL BURKETT 05 Sep 2019 1035 ------- ------- ------- ------- -- Medical Refill Request / PCM HONEY TAMSULO SIN 0.4mg ATORVAS TATIN 20mg PEPPER OROZCO 09/05 Medication Refill Forwarded [address] [place] [address] [facility])([facility] Blue) [address] [place] [address])(Sco tt [facility]) OUTPATIENT [id number] renew scripts for atorvas tatin (20mg) escital opram (20 mg) by previou s PCM FARZANEH ROSENBERG 10/25 Released w/o Limitations [address] [place] [address] Chan [facility])(S [facility] Tm Blue) [address] [place] [address])(Sco tt [facility] Blue) TELE CONSULT [id number] Notes Entered by: SAMANTHA ROSENBERG 26 Oct 2019 1514 ------- ------- ------- ------- -- Lab results FARZANEH ROSENBERG Esther 10/26 Released to Self [facility] [address] [place] [address] Chan [facility])([facility] FAMRES Tm Blue) [address] [place] [address])(Sco tt [facility] Tm Blue) OUTPATIENT [id number] 7 DEYSIJASONJAXON SteeleAURORA Foy 12/02 Released w/o Limitations [address] [place] [address] Chan [facility])([facility] FAMRES Tm Blue) [address] [place] [address])(Sco tt [facility] Tm Blue) TELE CONSULT [id number] Notes Entered by: LIZ BARRERA 06 Feb 2020 1129 ------- ------- ------- ------- -- Referra matthews Request (appt 19 February)/Verenice ennis/ ABDULKADIR GRIFFIN (Jean) 02/05 Immediate Referral [address] [place] [address] Chan [facility])([facility] FAMRES Tm Blue) [address] [place] [address])(Sco tt [facility] Tm Blue) TELE CONSULT [id number] Notes Entered by: CHARMAINE CARTWRIGHT 28 Feb 2020 0925 ------- ------- ------- ------- -- Rx renewal - 6 days left - Law - - [facility] VINNY MERLOS 02/27 Referred for Appointment [address] [place] [address] Chan [facility])([facility] FAMRES Tm Blue) [address] [place] [address])(Sco tt [facility] Tm Blue) OUTPATIENT [id number] In-Pers on - Med Renewal [phone] RAYSA RAMIREZ 05/27 Released w/o Limitations [address] [place] [address] Chan [facility])(S cott [facility] Tm Blue) [address] [place] [address] Chan [facility])(Sco tt [facility] Tm Blue) TELE CONSULT [id number] Notes Entered by: LIZ BARRERA 21 Aug 2020 1431 ------- ------- ------- ------- -- STAT Referra matthews Renewal Request (appt Aug)/Mamadou delon/20 2.550.1 700 PEPPER OROZCO 08/21 Immediate Referral [address] [place] [address] Chan [facility])(S cott [facility] Tm Blue) [address] [place] [address])(Sco tt [facility] Tm Blue) TELE CONSULT [id number] Notes Entered by: CHARMAINE CARTWRIGHT 01 Sep 2020 1515 ------- ------- ------- ------- -- Referra matthews renewal - lEvia - - tsg PEPPER OROZCO 09/01 Released to [facility] Care [address] [place] [address])(S cott [facility] Tm Blue) [address] [place] [address])(Sco tt [facility] Tm Blue) OUTPATIENT [id number] In Person Appt - F/U on test results - [id number] [phone] TK DIAMOND 09/12 Released w/o Limitations [address] [place] [address])(S cott [facility] Tm Blue) [address] [place] [address] Chan [facility])(Sco tt [facility] Tm Blue) TELE CONSULT [id number] Notes Entered by: LIZ BARRERA 22 Sep 2020 1458 ------- ------- ------- ------- -- COVID Test Request /Elvia /.55 0.1700 TK DIAMOND 09/[address] [place] [address])(S cott [facility] Tm Blue) [facility] Outpatient Encounter [id number] 11/17 [facility] Outpatient Encounter [id number] 12/06 [facility] Outpatient Encounter [id number] Jennifer DEY 01/23 [facility] Outpatient Encounter [id number] 01/25 [facility] Outpatient Encounter [id number] 02/08 [facility] Outpatient Encounter [id number] 10/05 [facility] Outpatient Encounter [id number] 10/05 [facility] Outpatient Encounter [id number] 10/08 [facility] Outpatient Encounter [id number] 11/06 [facility] Procedures Combined list of: 1) Procedures from Department of [facility] Affairs facilities going back up to thelast 18 months, not all MD non-surgical procedures are included; 2) All procedures from the Department of Defense facilities. Procedure Procedure Type Code Date Perfomer Comments Sourc e No data available for this section Ambulato ry Pharmacy OTHER TURBINECTOMY 12/25 [facility] CARDIOVASCULAR STRESS TEST USING MAXIMAL OR SUBMAXIMAL TREADMILL OR BICYCLE EXERCISE,CONTINUOU S ELECTROCARDIOGRAPH IC MONITORING,AND/OR PHARMACOLOGICAL STRESS;W SUPERVISION,INTERP RETATION AND REPORT 10/12 [facility] VISUAL FIELD EXAM,UNILAT/BI,INT ERP&REP;EXT EXM(EG,GOLDMANN VIS FLD,AT LEAST 3 ISOP PLOT&STAT DET W/IN MARKUS 30DEG/QUANT,AUTO THRSH MICHAEL,OCT G-1,32/42,HUMP VIS FLD ANAL FULL THRSH 30-2,24-2, OR 30/60-2) 07/20 [facility] OPHTHALMOSCOPY, EXTENDED, WITH RETINAL DRAWING (EG, FOR RETINAL DETACHMENT, MELANOMA), WITH INTERPRETATION AND REPORT; INITIAL 07/12 [facility] SIGMOIDOSCOPY, FLEXIBLE; DIAGNOSTIC, INCLUDING COLLECTION [...] HR/SOON APT;5-10 MIN MED DIS 02/05 [facility] OPHTHALMOLOGICAL SERVICES: MEDICAL EXAMINATION AND EVALUATION WITH INITIATION OF DIAGNOSTIC AND TREATMENT PROGRAM; COMPREHENSIVE, NEW PATIENT, 1 OR MORE VISITS 02/17 [facility] VISUAL FIELD EXAM,UNILAT/BI,INT ERP&REP;EXT EXM(EG,GOLDMANN VIS FLD,AT LEAST 3 ISOP PLOT&STAT DET W/IN MARKUS 30DEG/QUANT,AUTO THRSH MICHAEL,OCT G-1,32/42,HUMP VIS FLD ANAL FULL THRSH 30-2,24-2, OR 60-2) 02/17 [facility] DETERMINATION OF REFRACTIVE STATE 07/23 [facility] PARING OR CUTTING OF BENIGN HYPERKERATOTIC LESION (EG, CORN OR CALLUS); SINGLE LESION 03/21 [facility] DESTRUCTION (EG, LASER SURGERY, ELECTROSURGERY, CRYOSURGERY, CHEMOSURGERY, SURGICAL CURETTEMENT), OF BENIGN LESIONS OTHER THAN SKIN TAGS OR CUTANEOUS VASCULAR PROLIFERATIVE LESIONS; UP TO 14 LESIONS 02/08 [facility] TANGENTIAL BIOPSY OF SKIN (EG, SHAVE, SCOOP, SAUCERIZE, CURETTE); SINGLE LESION 01/15 [facility] FOOT INSERT, REMOVABLE, MOLDED TO PATIENT MODEL, LONGITUDINAL ARCH SUPPORT, EACH 01/15 [facility] MANUAL THERAPY TECHNIQUES (EG, MOBILIZATION/ MANIPULATION, MANUAL LYMPHATIC DRAINAGE, MANUAL TRACTION), 1 OR MORE REGIONS, EACH 15 MINUTES 01/11 [facility] DESTRUCTION (EG, LASER SURGERY, ELECTROSURGERY, CRYOSURGERY, CHEMOSURGERY, SURGICAL CURETTEMENT), OF BENIGN LESIONS OTHER THAN SKIN TAGS OR CUTANEOUS VASCULAR PROLIFERATIVE LESIONS; UP TO 14 LESIONS 12/01 [facility] SCREENING TEST OF VISUAL ACUITY, QUANTITATIVE, BILATERAL 09/22 [facility] INFLUENZA VIRUS VACCINE, QUADRIVALENT (IIV4), SPLIT VIRUS, PRESERVATIVE FREE, 0.5 ML DOSAGE, FOR INTRAMUSCULAR USE 07/25 [facility] INJECTION, ENZYME (EG, COLLAGENASE), PALMAR FASCIAL CORD (IE, DUPUYTREN'S CONTRACTURE) 02/15 [facility] ELECTROCARDIOGRAM, ROUTINE ECG WITH AT LEAST 12 LEADS; WITH INTERPRETATION AND REPORT 01/31 [facility] MANIPULATION, PALMAR FASCIAL CORD (IE, DUPUYTREN'S CORD), POST ENZYME INJECTION (EG, COLLAGENASE), SINGLE CORD 11/23 [facility] INJECTION, ENZYME (EG, COLLAGENASE), PALMAR FASCIAL CORD (IE, DUPUYTREN'S CONTRACTURE) 11/22 [facility] HEALTH&BEHAV ASSESSMENT (EG, HEALTH-FOC CLINICAL INTERVIEW, BEHAVIORAL OBSERVATIONS, PSYCHOPHYSICOLOGIC AL MONITOR, HEALTH-ORIENT QUESTIONNAIRES), EA 15 MIN [id number] W THE PATIENT; INIT ASSESSMENT 11/01 [facility] LARYNGOSCOPY, FLEXIBLE; DIAGNOSTIC 09/22 [facility] BIOPSY, PROSTATE; NEEDLE OR PUNCH, SINGLE OR MULTIPLE, ANY APPROACH 09/16 [facility] URINALYSIS; QUALITATIVE OR SEMIQUANTITATIVE, EXCEPT IMMUNOASSAYS 08/10 [facility] INFLUENZA VIRUS VACCINE, QUADRIVALENT (IIV4), SPLIT VIRUS, PRESERVATIVE FREE, 0.5 ML DOSAGE, FOR INTRAMUSCULAR USE 07/25 [facility] UNLISTED SPECIAL SERVICE, PROCEDURE OR REPORT 07/04 [facility] FINGER SPLINT, STATIC 06/27 [facility] ELECTROCARDIOGRAM, ROUTINE ECG WITH AT LEAST 12 LEADS; WITH INTERPRETATION AND REPORT 05/13 [facility] BRIEF EMOTIONAL/BEHAVIOR AL ASSESSMENT (EG, DEPRESSION INVENTORY, ATTENTION-DEFICIT/ HYPERACTIVITY DISORDER [ADHD] SCALE), WITH SCORING AND DOCUMENTATION, PER STANDARDIZED INSTRUMENT 04/01 [facility] HEALTH AND BEHAVIOR INTERVENTION, EACH 15 MINUTES, [id number]; INDIVIDUAL 03/29 [facility] DESTRUCT (EG, LASER SURGERY, ELECTROSURGERY, CRYOSURGERY, CHEMOSURGERY, SURGICAL CURETTEMENT), PREMALIGNANT LESIONS (EG, ACTINIC KERATOSES); 2ND THRU 14 LESIONS, EA (LIST SEP ADDITION CD, 1ST LESION) 01/25 [facility] HEALTH AND BEHAVIOR INTERVENTION, EACH 15 MINUTES, [id number]; INDIVIDUAL 12/10 [facility] HEALTH AND BEHAVIOR INTERVENTION, EACH 15 MINUTES, [id number]; INDIVIDUAL 11/08 [facility] POSTOPERATIVE FOLLOW-UP VISIT, NORMALLY INCLUDED IN THE SURGICAL PACKAGE, INDICATE THAT EVALUATION & MANAGEMENT SERVICE WAS PERFORMED DURING A POSTOPERATIVE PERIOD REASON RELATED ORIGINAL PROCEDURE 09/06 [facility] POSTOPERATIVE FOLLOW-UP VISIT, NORMALLY INCLUDED IN THE SURGICAL PACKAGE, INDICATE THAT EVALUATION & MANAGEMENT SERVICE WAS PERFORMED DURING A POSTOPERATIVE PERIOD REASON RELATED ORIGINAL PROCEDURE 08/03 [facility] INFLUENZA VIRUS VACCINE, TRIVALENT (IIV3), SPLIT VIRUS, PRESERVATIVE FREE, 0.5 ML DOSAGE, FOR INTRAMUSCULAR USE 08/02 [facility] POSTOPERATIVE FOLLOW-UP VISIT, NORMALLY INCLUDED IN THE SURGICAL PACKAGE, INDICATE THAT EVALUATION & MANAGEMENT SERVICE WAS PERFORMED DURING A POSTOPERATIVE PERIOD REASON RELATED ORIGINAL PROCEDURE 07/26 [facility] UNLISTED SPECIAL SERVICE, PROCEDURE OR REPORT 07/26 [facility] OPHTHALMOLOGICAL SERVICES: MEDICAL EXAMINATION AND EVALUATION, WITH INITIATION OR CONTINUATION OF DIAGNOSTIC AND TREATMENT PROGRAM; INTERMEDIATE, ESTABLISHED PATIENT 05/25 [facility] TETANUS, DIPHTHERIA TOXOIDS AND ACELLULAR PERTUSSIS VACCINE (TDAP), WHEN ADMINISTERED TO INDIVIDUALS 7 YEARS OR OLDER, FOR INTRAMUSCULAR USE 04/20 [facility] HEALTH AND BEHAVIOR INTERVENTION, EACH 15 MINUTES, [id number]; INDIVIDUAL 04/01 [facility] OPHTHALMOLOGICAL SERVICES: MEDICAL EXAMINATION AND EVALUATION, WITH INITIATION OR CONTINUATION OF DIAGNOSTIC AND TREATMENT PROGRAM; INTERMEDIATE, ESTABLISHED PATIENT 02/11 [facility] OPHTHALMOLOGICAL SERVICES: MEDICAL EXAMINATION AND EVALUATION, WITH INITIATION OR CONTINUATION OF DIAGNOSTIC AND TREATMENT PROGRAM; COMPREHENSIVE, ESTABLISHED PATIENT, 1 OR MORE VISITS 01/25 [facility] ELECTROCARDIOGRAM, ROUTINE ECG WITH AT LEAST 12 LEADS; WITH INTERPRETATION AND REPORT 01/21 [facility] IMMUNIZATION ADMINISTRATION (INCLUDES PERCUTANEOUS, INTRADERMAL, SUBCUTANEOUS, OR INTRAMUSCULAR INJECTIONS); 1 VACCINE (SINGLE OR COMBINATION VACCINE/TOXOID) 01/04 [facility] ELECTROCARDIOGRAM, ROUTINE ECG WITH AT LEAST 12 LEADS; WITH INTERPRETATION AND REPORT 12/24 [facility] THERAPEUTIC PROCEDURE, 1 OR MORE AREAS, EACH 15 MINUTES; THERAPEUTIC EXERCISES TO DEVELOP STRENGTH AND ENDURANCE, RANGE OF MOTION AND FLEXIBILITY 12/21 [facility] VISUAL FIELD EXAM,UNILAT/BI,INT ERP&REP;EXT EXM(EG,GOLDMANN VIS FLD,AT LEAST 3 ISOP PLOT&STAT DET W/IN MARKUS 30DEG/QUANT,AUTO THRSH MICHAEL,OCT G-1,32/42,HUMP VIS FLD ANAL FULL THRSH 30-2,24-2, OR 3060-2) 12/16 [facility] HEALTH AND BEHAVIOR INTERVENTION, EACH 15 MINUTES, [id number]; INDIVIDUAL 12/08 [facility] OPHTHALMOLOGICAL SERVICES: MEDICAL EXAMINATION AND EVALUATION, WITH INITIATION OR CONTINUATION OF DIAGNOSTIC AND TREATMENT PROGRAM; COMPREHENSIVE, ESTABLISHED PATIENT, 1 OR MORE VISITS 11/06 [facility] HEALTH&BEHAV ASSESSMENT (EG, HEALTH-FOC CLINICAL INTERVIEW, BEHAVIORAL OBSERVATIONS, PSYCHOPHYSICOLOGIC AL MONITOR, HEALTH-ORIENT QUESTIONNAIRES), EA 15 MIN [id number] W THE PATIENT; INIT ASSESSMENT 10/10 [facility] FOOT INSERT, REMOVABLE, MOLDED TO PATIENT MODEL, LONGITUDINAL ARCH SUPPORT, EACH 10/09 [facility] FLUOROSCOPIC GUIDANCE & LOCALIZATION OF NEEDLE OR CATHETER TIP FOR SPINE/PARASPINOUS DIAG/THERAPEUTIC INJECTION PROCEDURES (EPIDURAL/SUBARACH NOID) (LIST SEPARATELY IN ADD TO CODE FOR PRIMARY PROC) 08/21 [facility] ECHOCARDIOGRAPHY,T CYDNEYSTHORACIBayron,REAL- TIME W IMAGE DOCUMENTATION (2D),INCLUDES M-MODE RECORDING,WHEN PERFORMED,COMPLETE ,WITH SPECTRAL DOPPLER ECHOCARDIOGRAPHY,A ND W COLOR FLOW DOPPLER ECHOCARDIOGRAPHY 08/21 [facility] THERAPEUTIC PROCEDURE, 1 OR MORE AREAS, EACH 15 MINUTES; THERAPEUTIC EXERCISES TO DEVELOP STRENGTH AND ENDURANCE, RANGE OF MOTION AND FLEXIBILITY 08/20 [facility] DETERMINATION OF REFRACTIVE STATE 08/19 [facility] DESTRUCT (EG, LASER SURGERY, ELECTROSURGERY, CRYOSURGERY, CHEMOSURGERY, SURGICAL CURETTEMENT), PREMALIGNANT LESIONS (EG, ACTINIC KERATOSES); 2ND THRU 14 LESIONS, EA (LIST SEP ADDITION CD, 1ST LESION) 07/22 [facility] INFLUENZA VIRUS VACCINE, TRIVALENT (IIV3), SPLIT VIRUS, PRESERVATIVE FREE, 0.5 ML DOSAGE, FOR INTRAMUSCULAR USE 07/18 [facility] ELECTROCARDIOGRAM, ROUTINE ECG WITH AT LEAST 12 LEADS; WITH INTERPRETATION AND REPORT 07/10 [facility] MEASUREMENT OF POST-VOIDING RESIDUAL URINE AND/OR BLADDER CAPACITY BY ULTRASOUND, NON-IMAGING 07/08 [facility] BRIEF EMOTIONAL/BEHAVIOR AL ASSESSMENT (EG, DEPRESSION INVENTORY, ATTENTION-DEFICIT/ HYPERACTIVITY DISORDER [ADHD] SCALE), WITH SCORING AND DOCUMENTATION, PER STANDARDIZED INSTRUMENT 06/24 [facility] TELE ASSESS & MGT SRV PROV QUAL NONPHYS HLTH CARE PRO TO EST PAT,PARENT,GUARD NOT ORIG REL ASSESS & MGT SRV PROV W/IN PREV 7 DAYS NOR LEAD ASSESS & MGT SRV/PX W/IN NXT 24 HR/SOON APT;5-10 MIN MED DIS 06/16 [facility] ELECTROCARDIOGRAM, ROUTINE ECG WITH AT LEAST 12 LEADS; WITH INTERPRETATION AND REPORT 05/21 [facility] THERAPEUTIC, PROPHYLACTIC, OR DIAGNOSTIC INJECTION (SPECIFY SUBSTANCE OR DRUG); SUBCUTANEOUS OR INTRAMUSCULAR 04/07 [facility] VISUAL FIELD EXAM,UNILAT/BI,INT ERP&REP;EXT EXM(EG,GOLDMANN VIS FLD,AT LEAST 3 ISOP PLOT&STAT DET W/IN MARKUS 30DEG/QUANT,AUTO THRSH MICHAEL,OCT G-1,32/42,HUMP VIS FLD ANAL FULL THRSH 30-2,24-2, OR 30/60-2) 03/02 [facility] APPLICATION OF FINGER SPLINT; STATIC 01/19 [facility] FISH AND WILDLIFE TECHNICIAN ELECTROCARDIOGRAPH IC RECORDING UP TO 48 HOUR,CONT RHYTHM RECORDING & STORAGE;INCLUD RECORDING,SCANNING ANAL W REPORT,REVIEW &INTERPRETATION,A PHYSICIAN/OTHER QUALIFIED HEALTH CORRUGATED FASTENER DRIVER 12/14 [facility] THERAPEUTIC, PROPHYLACTIC, OR DIAGNOSTIC INJECTION (SPECIFY SUBSTANCE OR DRUG); SUBCUTANEOUS OR INTRAMUSCULAR 11/18 [facility] ELECTROCARDIOGRAM, ROUTINE ECG WITH AT LEAST 12 LEADS; WITH INTERPRETATION AND REPORT 11/02 [facility] EXTERNAL OCULAR PHOTOGRAPHY WITH INTERPRETATION AND REPORT FOR DOCUMENTATION OF MEDICAL PROGRESS (EG, CLOSE-UP PHOTOGRAPHY, SLIT LAMP PHOTOGRAPHY, GONIOPHOTOGRAPHY, STEREO-PHOTOGRAPHY ) 10/26 [facility] OPHTHALMOLOGICAL SERVICES: MEDICAL EXAMINATION AND EVALUATION WITH INITIATION OF DIAGNOSTIC AND TREATMENT PROGRAM; INTERMEDIATE, NEW PATIENT 09/23 [facility] CARDIOVASCULAR STRESS TEST USING MAXIMAL OR SUBMAXIMAL TREADMILL OR BICYCLE EXERCISE,CONTINUOU S ELECTROCARDIOGRAPH IC MONITORING,AND/OR PHARMACOLOGICAL STRESS;W SUPERVISION,INTERP RETATION AND REPORT 09/22 [facility] ECHOCARDIOGRAPHY,T RANSTHORACIC,REAL- TIME W IMAGE DOCUMENTATION (2D),INCLUDES M-MODE RECORDING,WHEN PERFORMED,COMPLETE ,WITH SPECTRAL DOPPLER ECHOCARDIOGRAPHY,A ND W COLOR FLOW DOPPLER ECHOCARDIOGRAPHY 09/06 [facility] ELECTROCARDIOGRAM, ROUTINE ECG WITH AT LEAST 12 LEADS; WITH INTERPRETATION AND REPORT 09/06 [facility] SCANNING COMPUTERIZED OPHTHALMIC DIAGNOSTIC IMAGING, POSTERIOR SEGMENT, WITH INTERPRETATION AND REPORT, UNILATERAL OR BILATERAL; OPTIC NERVE 08/23 [facility] BIOPSY OF SKIN, SUBCUTANEOUS TISSUE AND/OR MUCOUS MEMBRANE (INCLUDING SIMPLE CLOSURE),UNLESS OTHERWISE LISTED (SEPARATE PROCEDURE); EACH SEPARATE/ADD LESION (LIST SEP IN ADD TO CODE FOR PRIMARY PROC) 08/03 [facility] DETERMINATION OF REFRACTIVE STATE 07/28 [facility] ULTRASONIC GUIDANCE FOR NEEDLE PLACEMENT (EG, BIOPSY, ASPIRATION, INJECTION, LOCALIZATION DEVICE), IMAGING SUPERVISION AND INTERPRETATION 07/05 [facility] TELE ASSESS & MGT SRV PROV QUAL NONPHYS HLTH CARE PRO TO EST PAT,PARENT,GUARD NOT ORIG REL ASSESS & MGT SRV PROV W/IN PREV 7 DAYS NOR LEAD ASSESS & MGT SRV/PX W/IN NXT 24 HR/SOON APT;5-10 MIN MED DIS 01/25 [facility] ARTHROCENTESIS, ASPIRATION AND/OR INJECTION, MAJOR JOINT OR BURSA (EG, SHOULDER, HIP, KNEE, SUBACROMIAL BURSA); WITHOUT ULTRASOUND GUIDANCE 10/23 [facility] ECHOCARDIOGRAPHY, TRANSTHORACIC, REAL-TIME WITH IMAGE DOCUMENTATION (2D), INCLUDES M-MODE RECORDING, WHEN PERFORMED, COMPLETE, WITHOUT SPECTRAL OR COLOR DOPPLER ECHOCARDIOGRAPHY 10/12 [facility] ELECTROCARDIOGRAM, ROUTINE ECG WITH AT LEAST 12 LEADS; WITH INTERPRETATION AND REPORT 09/30 [facility] PHYSICAL THERAPY RE-EVALUATION 09/23 [facility] [...] MORE AREAS; IONTOPHORESIS, EACH 15 MINUTES 06/22 [facility] APPLICATION OF A MODALITY TO 1 OR MORE AREAS; IONTOPHORESIS, EACH 15 MINUTES 06/18 [facility] PHYSICAL THERAPY EVALUATION 06/15 [facility] DETERMINATION OF REFRACTIVE STATE 05/28 [facility] SCANNING COMPUTERIZED OPHTHALMIC DIAGNOSTIC IMAGING, POSTERIOR SEGMENT, (EG, SCANNING LASER) WITH INTERPRETATION AND REPORT, UNILATERAL 12/08 [facility] POSTOPERATIVE FOLLOW-UP VISIT, NORMALLY INCLUDED IN THE SURGICAL PACKAGE, INDICATE THAT EVALUATION & MANAGEMENT SERVICE WAS PERFORMED DURING A POSTOPERATIVE PERIOD REASON RELATED ORIGINAL PROCEDURE 11/24 [facility] UNLISTED SPECIAL SERVICE, PROCEDURE OR REPORT 11/19 [facility] ELECTROCARDIOGRAM, ROUTINE ECG WITH AT LEAST 12 LEADS; TRACING ONLY, WITHOUT INTERPRETATION AND REPORT 11/06 [facility] OPHTHALMOLOGICAL SERVICES: MEDICAL EXAMINATION AND EVALUATION, WITH INITIATION OR CONTINUATION OF DIAGNOSTIC AND TREATMENT PROGRAM; INTERMEDIATE, ESTABLISHED PATIENT 10/31 [facility] OPHTHALMIC ULTRASOUND, ECHOGRAPHY, DIAGNOSTIC; CORNEAL PACHYMETRY, UNILATERAL OR BILATERAL (DETERMINATION OF CORNEAL THICKNESS) 10/31 [facility] OPHTHALMIC ULTRASOUND, ECHOGRAPHY, DIAGNOSTIC; CORNEAL PACHYMETRY, UNILATERAL OR BILATERAL (DETERMINATION OF CORNEAL THICKNESS) 09/30 [facility] EXTERNAL OCULAR PHOTOGRAPHY WITH INTERPRETATION AND REPORT FOR DOCUMENTATION OF MEDICAL PROGRESS (EG, CLOSE-UP PHOTOGRAPHY, SLIT LAMP PHOTOGRAPHY, GONIOPHOTOGRAPHY, STEREO-PHOTOGRAPHY ) 09/19 [facility] ELECTROCARDIOGRAM, ROUTINE ECG WITH AT LEAST 12 LEADS; WITH INTERPRETATION AND REPORT 08/12 [facility] COMPREHENSIVE AUDIOMETRY THRESHOLD EVALUATION AND SPEECH RECOGNITION (15983 AND 27633 COMBINED) 08/12 [facility] DESTRUCTION (EG, LASER SURGERY, ELECTROSURGERY, CRYOSURGERY, CHEMOSURGERY, SURGICAL CURETTEMENT), OF BENIGN LESIONS OTHER THAN SKIN TAGS OR CUTANEOUS VASCULAR PROLIFERATIVE LESIONS; UP TO 14 LESIONS 07/30 [facility] SENSORIMOTOR EXAMINATION WITH MULTIPLE MEASUREMENTS OF OCULAR DEVIATION (EG, RESTRICTIVE OR PARETIC MUSCLE WITH DIPLOPIA) WITH INTERPRETATION AND REPORT (SEPARATE PROCEDURE) 02/17 [facility] INFECTIOUS AGENT ANTIGEN DETECTION BY IMMUNOASSAY WITH DIRECT OPTICAL (IE, VISUAL) OBSERVATION; STREPTOCOCCUS, GROUP A 01/13 [facility] FITTING OF SPECTACLES, EXCEPT FOR APHAKIA; BIFOCAL 12/23 [facility] IMAGING SUPERVISION, INTERPRETATION AND REPORT FOR INJECTION PROCEDURE(S) DURING CARDIAC CATH; PULMONARY ANGIOGRAPHY, AORTOGRAPHY, AND/OR SELECTIVECORONARY ANGIOGRAPHY INC VENOUS BYPASS GRAFTS 11/13 [facility] ELECTROCARDIOGRAM, ROUTINE ECG WITH AT LEAST 12 LEADS; WITH INTERPRETATION AND REPORT 11/05 [facility] SCANNING COMPUTERIZED OPHTHALMIC DIAGNOSTIC IMAGING, POSTERIOR SEGMENT, (EG, SCANNING LASER) WITH INTERPRETATION AND REPORT, UNILATERAL 10/31 [facility] OPHTHALMOSCOPY, EXTENDED, WITH RETINAL DRAWING (EG, FOR RETINAL DETACHMENT, MELANOMA), WITH INTERPRETATION AND REPORT; INITIAL 10/24 [facility] ULTRASONIC GUIDANCE FOR NEEDLE PLACEMENT (EG, BIOPSY, ASPIRATION, INJECTION, LOCALIZATION DEVICE), IMAGING SUPERVISION AND INTERPRETATION 09/16 [facility] NERVE CONDUCTION, AMPLITUDE AND LATENCY/VELOCITY STUDY, EACH NERVE; SENSORY 08/12 [facility] EDUCATION &TRAINING, PATIENT SELF-MGT QUALIFIED, NONPHYSICIAN HEALTH CORRUGATED FASTENER DRIVER USING STDIZED CURRICULUM, [id number]-OG-[id number] W THE PATIENT (COULD INCL CAREGIVER/FAMILY) EA 30 MIN; INDIVIDUAL PATIENT 07/23 [facility] FLUOROSCOPIC GUIDANCE & LOCALIZATION OF NEEDLE OR CATHETER TIP FOR SPINE/PARASPINOUS DIAG/THERAPEUTIC INJECTION PROCEDURES (EPIDURAL/SUBARACH NOID) (LIST SEPARATELY IN ADD TO CODE FOR PRIMARY PROC) 07/22 [facility] NURSING ASSESSMENT/EVALUAT ION 07/02 [facility] INJECTION(S); SINGLE OR MULTIPLE TRIGGER POINT(S), 1 OR 2 MUSCLE(S) 07/01 [facility] THERAPEUTIC, PROPHYLACTIC OR DIAGNOSTIC INJECTION (SPECIFY SUBSTANCE OR DRUG); SUBCUTANEOUS OR INTRAMUSCULAR 06/24 [facility] ELECTROCARDIOGRAM, ROUTINE ECG WITH AT LEAST 12 LEADS; WITH INTERPRETATION AND REPORT 05/21 [facility] DOPPLER ECHOCARDIOGRAPHY, PULSED WAVE AND/OR CONTINUOUS WAVE WITH SPECTRAL DISPLAY (LIST SEPARATELY IN ADDITION TO CODES FOR ECHOCARDIOGRAPHIC IMAGING); COMPLETE 05/07 [facility] VISUAL FIELD EXAM,UNILAT/BI,INT ERP&REP;EXT EXM(EG,GOLDMANN VIS FLD,AT LEAST 3 ISOP PLOT&STAT DET W/IN MARKUS 30DEG/QUANT,AUTO THRSH MICHAEL,OCT G-1,32/42,HUMP VIS FLD ANAL FULL THRSH 30-2,24-2, OR 30/60-2) 01/01 [facility] HEEL, SACH CUSHION TYPE 12/25 [facility] URINALYSIS, BY DIP STICK OR TABLET REAGENT FOR BILIRUBIN, GLUCOSE, HEMOGLOBIN, KETONES, LEUKOCYTES, NITRITE, PH, PROTEIN, SPEC GRAVITY, UROBILINOGEN, ANY NUMBER OF CONSTITUENTS; W/O MICRO, AUTOMATED [facility] DESTRUCTION (EG, LASER SURGERY, ELECTROSURGERY, CRYOSURGERY, CHEMOSURGERY, SURGICAL CURETTEMENT), OF BENIGN LESIONS OTHER THAN SKIN TAGS OR CUTANEOUS VASCULAR PROLIFERATIVE LESIONS; UP TO 14 LESIONS 11/17 [facility] VISUAL FIELD EXAM,UNILAT/BI,INT ERP&REP;EXT EXM(EG,GOLDMANN VIS FLD,AT LEAST 3 ISOP PLOT&STAT DET W/IN MARKUS 30DEG/QUANT,AUTO THRSH MICHAEL,OCT G-1,32/42,HUMP VIS FLD ANAL FULL THRSH 30-2,24-2, OR 3060-2) 11/10 [facility] ELECTROCARDIOGRAM, ROUTINE ECG WITH AT LEAST 12 LEADS; WITH INTERPRETATION AND REPORT 11/07 [facility] ARTHROCENTESIS, ASPIRATION AND/OR INJECTION, MAJOR JOINT OR BURSA (EG, SHOULDER, HIP, KNEE, SUBACROMIAL BURSA); WITHOUT ULTRASOUND GUIDANCE 06/13 [facility] NONINVASIVE EAR OR PULSE OXIMETRY FOR OXYGEN SATURATION; SINGLE DETERMINATION 04/28 [facility] POSTOPERATIVE FOLLOW-UP VISIT, NORMALLY INCLUDED IN THE SURGICAL PACKAGE, INDICATE THAT EVALUATION & MANAGEMENT SERVICE WAS PERFORMED DURING A POSTOPERATIVE PERIOD REASON RELATED ORIGINAL PROCEDURE 02/15 [facility] ARTHROSCOPY,KNEE,S URGICAL,FOR REMOV OF LOOSE BDY,FOREIGN BDY,DEBRIDEMENT/SH AVING OF ARTICUL CARTILAG (CHONDROPLASTY) AT THE TIME OF OTHSURGICAL KNE ARTHROSCOPY IN A DIFFERENT COMPART OF THE SAME KNEE 02/08 [facility] THERAPEUTIC PROCEDURE, 1 OR MORE AREAS, EACH 15 MINUTES; GAIT TRAINING (INCLUDES STAIR CLIMBING) 02/06 [facility] UNLISTED SPECIAL SERVICE, PROCEDURE OR REPORT 01/13 [facility] UNLISTED SPECIAL SERVICE, PROCEDURE OR REPORT 12/12 [facility] CARDIOVASCULAR STRESS TEST USING MAXIMAL OR SUBMAXIMAL TREADMILL OR BICYCLE EXERCISE,CONTINUOU S ELECTROCARDIOGRAPH IC MONITORING,AND/OR PHARMACOLOGICAL STRESS;W SUPERVISION,INTERP RETATION AND REPORT 11/11 [facility] BIOPSY OF SKIN, SUBCUTANEOUS TISSUE AND/OR MUCOUS MEMBRANE (INCLUDING SIMPLE CLOSURE),UNLESS OTHERWISE LISTED (SEPARATE PROCEDURE); EACH SEPARATE/ADD LESION (LIST SEP IN ADD TO CODE FOR PRIMARY PROC) 11/09 [facility] UNLISTED SPECIAL SERVICE, PROCEDURE OR REPORT 10/12 [facility] Visual Rivers Test Extended Examination Visual Rivers Test Extended Examination 46909 01/01 FARZANEH JACOB [facility] Ophthalmological Prior Patient Start Comprehensive Care Ophthalmological Prior Patient Start Comprehensive Care 42546 01/01 FARZANEH JACOB Heel, SACH cushion type 12/25 ROBERT NAVA Destruct Of Benign Lesion By Any Method Second Through 14 11/17 KONG FITZPATRICK Destruction Of Benign Lesion By Any Method One Lesion 11/17 KONG FITZPATRICK Biopsy Skin Biopsy Skin 60036 11/17 KONG FITZPATRICK Visual Rivers Test Extended Examination Visual Rivers Test Extended Examination 98894 11/10 FARZANEH JACOB 36 point superior field ptosis test: taped and untaped; OD and OS Naomi Ophthalmological New Patient Start Intermediate Level Care Ophthalmological New Patient Start Intermediate Level Care 47473 11/10 FARZANEH JACOB Arthrocentesis Injection Of Knee Joint Arthrocentesis Injection Of Knee Joint 91425 06/13 SARAH BOATENG Postoperative Visit, Without Charge Postoperative Visit, Without Charge 13446 02/15 SARAH BOATENG Physical Therapy Gait Training Physical Therapy Gait Training 71872 02/06 BHARTI KAY Echo (2-D) Mode Complete 11/11 JARVIS GARZA Echocardiogram Doppler Color Flow Velocity Mapping Echocardiogram Doppler Color Flow Velocity Mapping 72575 11/11 JARVIS GARZA Echocardiogram Doppler Echocardiogram Doppler 42893 11/11 JARVIS GARZA Cardiovascular Stre Test Cardiovascular Stress Test 42664 11/11 JARVIS GARZA Electrocardiogram Electrocardiogram 49542 11/11 JARVIS GARZA Biopsy Skin Biopsy Skin 33349 11/09 VICTORIANO DE LA CRUZ Biopsy Skin Each Additional Lesion Biopsy Skin Each Additional Lesion 84991 11/09 VICTORIANO DE LA CRUZ Destruction Of Benign Lesion By Any Method Destruction Of Benign Lesion By Any Method 61781 02/08 LILLIAN OLIVIA Foot insert, removable, molded to patient model, longitudinal arch support, each 01/17 PADMINI SCHUSTER 2 pair of mtech fos Naomi Marine Chronometer Assembler Educ Orthotics Training Each Additional 15 Minutes Marine Chronometer Assembler Educ Orthotics Training Each Additional 15 Minutes 08138 01/17 PADMINI SCHUSTER Skin Biopsy Technique Shave Single Lesion Skin Biopsy Technique Shave Single Lesion 55573 01/15 JADEN WHITING Procedure: [ ] Punch Biopsy [ x ] Shave Biopsy Location(s): A: right back B: C: [place] protocol was followed in compliance with [facility] standards. Name and date of were confirmed. The patient was educated on the risks and benefits of the procedure and gave his or her informed consent before initiating the procedure. Site(s) labeled with marking pen corresponding to specimen number. Area(s) cleaned with 70% isopropyl alcohol. Local anesthesia performed with 1% lidocaine with epinephrine. Site(s) verified with patient via timeout utilizing patient's name and date of . Biopsy/Biopsies performed without complication. Dual site-specimen cup verification performed verbally between provider and clinic staff. Hemostasis achieved with: [ ] hyfrecation [x ]aluminum chloride [ ]suture only Closure: [x ] secondary intent [ ] superficial interrupted 4-0 non-absorbable prolene sutures Petrolatum and bandage applied. Wound care instruction addressed with patient by provider or clinic staff and wound care handout given. Suture removal: [x ] N/A [ ] 5 days [ ] 7 days [ ] 10 days [ ] 14 days Patient tolerated the procedure well and left in stable condition. Patient was informed they would be notified in 10-14 days by telephone with biopsy results and scheduled for definitive management as necessary. [facility] Physical Therapy: ___ Se ion Segments, 15 Minutes Each Physical Therapy: ___ Session Segments, 15 Minutes Each 86899 01/12 SHERITA SHAVER [facility] Physical Therapy Service Evaluation Low Complexity Physical Therapy Service Evaluation Low Complexity 57736 01/12 SHERITA SHAVER [facility] Mobilization Soft Ti ue Mobilization Soft Tissue 04412 01/12 SHERITA SHAVER Musculoskeletal Procedures Injection Of Enzyme Into Palmar Fascia Cord Musculoskeletal Procedures Injection Of Enzyme Into Palmar Fascia Cord 97453 02/15 ZIYAD MEIER [facility] ECG 12-Lead With Interpretation And Report ECG 12-Lead With Interpretation And Report [id number] 01/31 NACHO GILLIS [facility] Manipulation Of Palmar Fascial Cord Post Enzyme Injection Manipulation Of Palmar Fascial Cord Post Enzyme Injection 04376 11/23 ZIYAD MEIER Musculoskeletal Procedures Injection Of Enzyme Into Palmar Fascia Cord Musculoskeletal Procedures Injection Of Enzyme Into Palmar Fascia Cord 33201 11/22 ZIYAD MEIER [facility] Health And Behav A e mt Each 15 Min Initial A e [facility] Health And Behav Assessmt Each 15 Min Initial Assessment 26121 11/01 ALFONSO BURT [facility] Laryngoscopy Diagnostic Flexible Laryngoscopy Diagnostic Flexible 58750 09/22 NACHO AQUINO After discussing procedure and [...] have no lesions. The VCs move normally [facility] Needle Biopsy Of Prostate Needle Biopsy Of Prostate 62736 09/[address] [facility] Urinalysis Urinalysis 31860 09/16 ARIANAKATHRYN [facility] Urinalysis Urinalysis 81200 08/10 ARIANAKATHRYN [facility] ECG 12-Lead With Interpretation And Report ECG 12-Lead With Interpretation And Report 01427 05/13 TK RIVERA [facility] Telephone calls by a registered nurse to a disease management program member for monitoring purposes; per month 04/02 CARY MIJARES 20 mins [facility] Psychometric Emotional / Behavioral A e [facility] Psychometric Emotional / Behavioral Assessment 42551 04/02 CARY MIJARES [facility] Health And Behavior Intervention, Each Additional 15 Minutes Individual Health And Behavior Intervention, Each Additional 15 Minutes Individual 77365 03/29 LANCE YAP [facility] Destruct Of Premalignant Lesion By Any Method 2nd Through 14 Destruct Of Premalignant Lesion By Any Method 2nd Through 14 21947 01/25 HELENE RODRÍGUEZ Patient was counseled regarding [...] Premalignant Lesion By Any Method One Lesion 40440 01/25 HELENE RODRÍGUEZ Destruction Of Benign Lesion By Any Method 1 - 14 Lesions Destruction Of Benign Lesion By Any Method 1 - 14 Lesions 49108 01/25 HELENE RODRÍGUEZ Health And Behavior Intervention, Each Additional 15 Minutes Individual Health And Behavior Intervention, Each Additional 15 Minutes Individual 21245 12/10 LANCE YAP Health And Behavior Intervention, Each Additional 15 Minutes Individual Health And Behavior Intervention, Each Additional 15 Minutes Individual 87202 11/08 LANCE YAP Postoperative Visit, Without Charge Postoperative Visit, Without Charge 95623 09/06 KOLBY LOZADA Postoperative Visit, Without Charge Postoperative Visit, Without Charge 69216 08/03 JESSENIA CHRISTIANSON External Ocular Photography External Ocular Photography 41752 08/03 JESSENIA CHRISTIANSON Ophthalmological Prior Patient Start Intermediate Level Care Ophthalmological Prior Patient Start Intermediate Level Care 55470 08/03 JESSENIA CHRISTIANSON Postoperative Visit, Without Charge Postoperative Visit, Without Charge 69757 07/27 KOLBY LOZADA Ophthalmological Prior Patient Start Intermediate Level Care Ophthalmological Prior Patient Start Intermediate Level Care 48558 05/25 JOHNNY HALL External Ocular Photography External Ocular Photography 30398 05/25 JOHNNY HALL Tdap Vaccine Seven Years Of Age And Above Tdap Vaccine Seven Years Of Age And Above 08546 04/20 LILLIAN OLIVIA Health And Behavior Intervention, Each Additional 15 Minutes Individual Health And Behavior Intervention, Each Additional 15 Minutes Individual 89867 04/01 LANCE YAP External Ocular Photography External Ocular Photography 86952 02/11 KOLBY LOZADA Ophthalmological Prior Patient Start Intermediate Level Care Ophthalmological Prior Patient Start Intermediate Level Care 33220 02/11 KOLBY LOZADA [facility] Ophthalmological Prior Patient Start Comprehensive Care Ophthalmological Prior Patient Start Comprehensive Care 18524 01/29 BENJI AGUIRRE [facility] Electrocardiogram Electrocardiogram 58703 01/21 MARIVEL FUNG normal sinus ryhthm [facility] Zoster Vaccine Live Zoster Vaccine Live 03156 01/04 STEPHANIE FRAUSTO Immunization Administration By Injection, One Vaccine Immunization Administration By Injection, One Vaccine 43009 01/04 STEPHANIE FRAUSTO [facility] ECG 12-Lead With Interpretation And Report ECG 12-Lead With Interpretation And Report 85449 12/24 TK HAMLIN [facility] Physical Therapy: ___ Se ion Segments, 15 Minutes Each Physical Therapy: ___ Session Segments, 15 Minutes Each 07791 12/21 LIZZETTE BAIN Patient instructed in wall Hamstring stretches and assisted Hamstretches (he and have done these before) ITBand stretches. Foam roll on ITB and hamstrings, mini squats, plank, and hip/arm ext 3 sets 14. [facility] Physical Therapy Service Evaluation Physical Therapy Service Evaluation 68465 12/21 LIZZETTE BAIN Patient with multiple joint issues which is likely contributed to the severely tight hamstrings. [facility] Visual Rivers Test Extended Examination Visual Rivers Test Extended Examination 57217 12/16 DICK LAZCANO [facility] Health And Behavior Intervention, Each Additional 15 Minutes Individual Health And Behavior Intervention, Each Additional 15 Minutes Individual 16429 12/08 LANCE YAP Visual Rivers Test Extended Examination Visual Rivers Test Extended Examination 66255 11/06 VIKAS FRAUSTO Ophthalmological Prior Patient Start Comprehensive Care Ophthalmological Prior Patient Start Comprehensive Care 05651 11/06 VIKAS FRAUSTO [facility] Marine Chronometer Assembler Educ Orthotics Training Each Additional 15 Minutes 10/13 GISELLA SANTILLAN Foot insert, removable, molded to patient model, longitudinal arch support, each 10/13 GISELLA SANTILLAN Milcedric High - Thin Sport [facility] Health And Behav A e mt Each 15 Min Initial A e ment Health And Behav Assessmt Each 15 Min Initial Assessment 14135 10/10 LANCE YAP Fluoroscopic Guidance/Localiz Of Needle For Spinal Injection 08/23 HELENE BOSTON 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 91041 08/23 HELENE BOSTON A isted Exercises For ROM Assisted Exercises For ROM 36825 08/21 NICOLÁS RICHTER Physical Therapy Service Evaluation Physical Therapy Service Evaluation 23060 08/21 NICOLÁS RICHTER Fundus Photography Fundus Photography 10539 08/19 MORGAN DORMAN Scanning Computerized Ophthalmic Diagnostic Imaging Optic Nerve Scanning Computerized Ophthalmic Diagnostic Imaging Optic Nerve 66722 08/19 MORGAN DORMAN Determination Of Refractive State Determination Of Refractive State 41819 08/19 MORGAN DORMAN Spectacles Services Fitting Monofocal Except For Aphakia Spectacles Services Fitting Monofocal Except For Aphakia 44789 08/19 MORGAN DORMAN Ophthalmological New Patient Start Comprehensive Care Ophthalmological New Patient Start Comprehensive Care 48054 08/19 MORGAN DORMAN Destruct Of Premalignant Lesion By Any Method 2nd Through 14 Destruct Of Premalignant Lesion By Any Method 2nd Through 14 45372 07/22 DEMETRIO SHARMA Patient was counseled regarding [...] Premalignant Lesion By Any Method One Lesion 61221 07/22 DEMETRIO SHARMA [facility] Biopsy Skin Biopsy Skin 49742 07/22 DEMETRIO SHARMA After the patient was identified using both their full name as well as their date of the area was outlined with blue marker. Written informed consent was then obtained and a timeout was performed per [facility] protocol. The area was then anesthetizes with 1% lidocaine with epinephrine and a shave biopsy was performed. Following this hemostasis was achieved with aluminum chloride and Vaseline and a band aid were placed. Proper aftercare instructions were given. I will call with the biopsy results when they are available. [facility] Electrocardiogram Electrocardiogram 13738 07/15 MAEGAN SÁNCHEZ [facility] Measuremt Post-Voiding Resid Urine, Bladder Capacity Ultrasd Measuremt Post-Voiding Resid Urine, Bladder Capacity Ultrasd 15468 07/08 GOPAL PUCKETT PVR=0ml [facility] Psychometric Emotional / Behavioral A e ment Psychometric Emotional / Behavioral Assessment 97745 06/24 RAVEN GRUBER [facility] Health And Behav A e mt Each 15 Min Initial A e ment Health And Behav Assessmt Each 15 Min Initial Assessment 13088 06/24 RAVEN GRUBER [facility] Non-Physician Phone Call To Patient/Provider Brief (5-10min) Non-Physician Phone Call To Patient/Provider Brief (5-10min) 43035 06/17 ОЛЬГА HUMPHRIES [facility] Electrocardiogram Electrocardiogram 36141 05/21 ADIEL JACKSON [facility] Visual Rivers Test Extended Examination Visual Rivers Test Extended Examination 71874 03/07 BERTHA PERALTA [facility] Physical Therapy Education Orthotics Training Initial 15 Min 01/19 TK RAMOS [facility] Wound Care Debridement Selective (Up To 20 square cm) 01/19 TK RAMOS [facility] Orthopedic Splinting Of Finger Orthopedic Splinting Of Finger 93169 01/19 TK RAMOS [facility] Occupational Therapy Evaluation Occupational Therapy Evaluation 57599 01/19 TK RAMOS [facility] Continuous ECG Holter Monitor 12/14 PIOTR MENDEZ [facility] Electrocardiogram Electrocardiogram 43289 11/03 FARZANEH CASTRO [facility] External Ocular Photography External Ocular Photography 48976 10/26 TK MANDUJANO [facility] Ophthalmological Prior Patient Start Intermediate Level Care Ophthalmological Prior Patient Start Intermediate Level Care 72628 10/26 TK MANDUJANO [facility] Ophthalmological New Patient Start Intermediate Level Care Ophthalmological New Patient Start Intermediate Level Care 38478 09/23 MAURICE FREDERICK [facility] Cardiac Stre Test With Physician Supervision, Interpretation, And Report Cardiac Stress Test With Physician Supervision, Interpretation, And Report 40608 09/22 CURTIS DUPONT [facility] Echo Congenital Cardiac Defects Transthoracic W/ M-Mode, Spectral, & Color Flow Echo Congenital Cardiac Defects Transthoracic W/ M-Mode, Spectral, & Color Flow 76023 09/06 FRANCES PALMER [facility] Electrocardiogram Electrocardiogram 27845 09/06 FARZANEH CASTRO [facility] Scanning Computerized Ophthalmic Diagnostic Imaging Optic Nerve Scanning Computerized Ophthalmic Diagnostic Imaging Optic Nerve 46921 08/25 BERTHA PERALTA Visual Rivers Test Extended Examination Visual Rivers Test Extended Examination 64481 08/25 BERTHA PERALTA Ophthalmological Prior Patient Start Intermediate Level Care Ophthalmological Prior Patient Start Intermediate Level Care 95994 08/25 BERTHA PERALTA Biopsy Skin Each Additional Lesion Biopsy Skin Each Additional Lesion 93546 08/03 VICTORIANO DESHPANDE Biopsy Skin Biopsy Skin 43461 08/03 VICTORIANO DESHPANDE ~PROCEDURE: SHAVE BIOPSY.~ ~LOCATION(S): A-upper back b- mid back ~[employer] REQUIREMENTS WERE MET PER [facility] INSTRUCTION 6320.4B.~ ~CONSENT OBTAINED AND FORM [...] PROCEDURE WELL AND LEFT IN STABLE CONDITION.~ [facility] Determination Of Refractive State Determination Of Refractive State 27545 07/29 BERTHA PERALTA Ophthalmological New Patient Start Comprehensive Care Ophthalmological New Patient Start Comprehensive Care 30361 07/29 BERTHA PERALTA Ultrasonic Guidance For Needle Biopsy Ultrasonic Guidance For Needle Biopsy 80723 07/05 RICARDO SANTILLAN Arthrocentesis Injection Of Acromioclavicular Joint Arthrocentesis Injection Of Acromioclavicular Joint 07/05 RICARDO SANTILLAN After vebal consent about risks of bleeding, infection, bruise, steroid atrophy; and after sterile prep; and under realtime US guidance, I injected right AC jt with 1.5cc 1% lido with 20mg Kenalog. Needle entered jt space immediately, no contact w/ bony surfact. Pt tolerated procedure well, no complications. [facility] Non-Physician Phone Call To Patient/Provider Brief (5-10min) Non-Physician Phone Call To Patient/Provider Brief (5-10min) 93366 01/25 MARY STEIN [facility] Arthrocentesis Aspiration Of Intermediate Joint Arthrocentesis Aspiration Of Intermediate Joint 15133 10/23 ARON RAMON Ultrasound Extremity, Nonvascular 10/23 ARON RAMON Echocardiogram Doppler Echocardiogram Doppler 45777 10/12 CIARRA HOUSE Echocardiogram Doppler Color Flow Velocity Mapping Echocardiogram Doppler Color Flow Velocity Mapping 55575 10/12 CIARRA HOUSE Echo (2-D) Mode Complete 10/12 CIARRA HOUSE Electrocardiogram Electrocardiogram 84120 09/30 MAEGAN SÁNCHEZ [facility] Non-Physician Phone Call To Patient/Provider Brief (5-10min) Non-Physician Phone Call To Patient/Provider Brief (5-10min) 47181 ABDULKADIR GRIFFIN [facility] Physical Therapy Service Re-Evaluation Physical Therapy Service Re-Evaluation 47659 09/23 MENDEZ DAVIS [facility] Modalities Iontophoresis Modalities Iontophoresis 98159 07/27 TK ALAMO Physical Therapy Mobilization Joint Physical Therapy Mobilization Joint 50073 07/27 TK ALAMO Physical Therapy: ___ Se ion Segments, 15 Minutes Each Physical Therapy: ___ Session Segments, 15 Minutes Each 24440 07/27 TK ALAMO Physical Therapy Mobilization Joint Physical Therapy Mobilization Joint 03078 07/21 CHASIDY CESPEDES [facility] Modalities Iontophoresis Modalities Iontophoresis 46896 07/21 CHASIDY CESPEDES [facility] Physical Therapy: ___ Se ion Segments, 15 Minutes Each Physical Therapy: ___ Session Segments, 15 Minutes Each 85405 07/21 CHASIDY CESPEDES [facility] Physical Therapy: ___ Se ion Segments, 15 Minutes Each Physical Therapy: ___ Session Segments, 15 Minutes Each 46810 07/16 SORIN DAVISDIRA Elian Performed 10 min of exercise education on cable system as stated above [facility] Physical Therapy Service Re-Evaluation Physical Therapy Service Re-Evaluation 88331 07/16 MENDEZ DAVIS DoD Modalities Iontophoresis Modalities Iontophoresis 23704 07/02 PHAAUSTINAMARAOLBety [facility] Physical Therapy Mobilization Joint Physical Therapy Mobilization Joint 32911 07/02 PHAMYRANYA, NACOLN [facility] Physical Therapy: ___ Se ion Segments, 15 Minutes Each Physical Therapy: ___ Session Segments, 15 Minutes Each 94512 07/02 PHAMYRANYA, NACOLBety [facility] Physical Therapy Mobilization Joint Physical Therapy Mobilization Joint 41257 06/29 TONI JORDAN [facility] Modalities Iontophoresis Modalities Iontophoresis 69662 06/29 TONI JORDAN [facility] Physical Therapy: ___ Se ion Segments, 15 Minutes Each Physical Therapy: ___ Session Segments, 15 Minutes Each 22392 06/29 TONI JORDAN [facility] Modalities Iontophoresis Modalities Iontophoresis 15148 06/26 PHAMYRANYA, NACOLBety [facility] Physical Therapy Mobilization Joint Physical Therapy Mobilization Joint 80699 06/26 PHAMYRANYA, NACOLN [facility] Physical Therapy: ___ Se ion Segments, 15 Minutes Each Physical Therapy: ___ Session Segments, 15 Minutes Each 48605 06/26 PHAIPANYA, MARAOLBety [facility] Modalities Iontophoresis Modalities Iontophoresis 42417 06/23 PHAIPANYA, NACOLN [facility] Physical Therapy Mobilization Joint Physical Therapy Mobilization Joint 12012 06/23 PHAIPANYA, NACOLBety [facility] Physical Therapy: ___ Se ion Segments, 15 Minutes Each Physical Therapy: ___ Session Segments, 15 Minutes Each 87570 06/23 PHAIPANYA, NACOLN [facility] Physical Therapy Mobilization Joint Physical Therapy Mobilization Joint 58393 06/18 TONI JORDAN [facility] Modalities Iontophoresis Modalities Iontophoresis 36296 06/18 TONI JORDAN SEATED: IONTO TO RT SHLDR @ 2.5mA Naomi Physical Therapy: ___ Se ion Segments, 15 Minutes Each Physical Therapy: ___ Session Segments, 15 Minutes Each 09583 06/18 TONI JORDAN Physical Therapy: ___ Se ion Segments, 15 Minutes Each Physical Therapy: ___ Session Segments, 15 Minutes Each 53071 06/15 MENDEZ DAVIS Physical Therapy Service Evaluation Physical Therapy Service Evaluation 97258 06/15 MENDEZ DAVIS Visual Rivers Test Extended Examination Visual Rivers Test Extended Examination 85793 05/28 HELENE WADE Determination Of Refractive State Determination Of Refractive State 89583 05/28 HELENE WADE RX given, see scanned notes Naomi Ophthalmological Prior Patient Start Comprehensive Care Ophthalmological Prior Patient Start Comprehensive Care 58727 05/28 HELENE WADE Optical Coherence Tomography 12/08 JOSE ROBERTS Corneal Pachymetry Both Eyes Corneal Pachymetry Both Eyes 64354 12/08 JOSE ROBERTS Visual Rivers Test Extended Examination Visual Rivers Test Extended Examination 22481 12/08 JOSE ROBERTS Ophthalmoscopy Extended, With Retinal Drawing - Initial Ophthalmoscopy Extended, With Retinal Drawing - Initial 88063 12/08 JOSE ROBERTS Ophthalmological Prior Patient Start Comprehensive Care Ophthalmological Prior Patient Start Comprehensive Care 07020 12/08 JOSE ROBERTS ECG Performance of Tracing Only ECG Performance of Tracing Only 37865 11/06 MARQUIS MO Basic Metabolic Panel With Total Calcium 11/06 MARQUIS MO CBC With Manual Differential CBC With Manual Differential 39319 11/06 MARQUIS MO Corneal Pachymetry Both Eyes Corneal Pachymetry Both Eyes 76583 10/31 BURTON RECINOS Visual Rivers Test Extended Examination Visual Rivers Test Extended Examination 42948 10/31 BURTON RECINOS Ophthalmological Prior Patient Start Intermediate Level Care Ophthalmological Prior Patient Start Intermediate Level Care 65746 10/31 BURTON RECINOS Fundoscopic Exam Extensive Follow-up Exam Fundoscopic Exam Extensive Follow-up Exam 86389 09/30 BURTON RECINOS Corneal Pachymetry Both Eyes Corneal Pachymetry Both Eyes 15884 09/30 BURTON RECINOS Ophthalmological Prior Patient Start Comprehensive Care Ophthalmological Prior Patient Start Comprehensive Care 51259 09/30 BURTON RECINOS Fundoscopic Exam Extensive Initial Exam Fundoscopic Exam Extensive Initial Exam 94076 09/19 NIKO MACEY Miramontes Naomi Slit Lamp Examination Slit Lamp Examination 22250 09/19 MACEY POPE Electrocardiogram Electrocardiogram 02297 08/12 LETICIA MARIN [facility] Comprehensive Audiometry Comprehensive Audiometry 96026 08/12 SRI CARRASCO Acoustic Reflex Testing 08/12 SRI CARRASCO Tympanometry Tympanometry 10438 08/12 SRI CARRASCO Evoked Otoacoustic Dania ions [...] Additional Lesion Biopsy Skin Each Additional Lesion 54639 07/30 SARAH MANE Biopsy Skin Biopsy Skin 15065 07/30 SARAH MANE Ophthalmological Sensorimotor Exam Ophthalmological Sensorimotor Exam 21595 03/18 PADMINI KING Ophthalmological Prior Patient Start Comprehensive Care Ophthalmological Prior Patient Start Comprehensive Care 24296 03/18 PADMINI KING Spectacles Services Fitting Bifocal Except For Aphakia Spectacles Services Fitting Bifocal Except For Aphakia 30625 12/23 ARTHUR MONROY Determination Of Refractive State Determination Of Refractive State 96207 12/23 ARTHUR MONROY Ophthalmological Prior Patient Start Intermediate Level Care Ophthalmological Prior Patient Start Intermediate Level Care 37285 12/23 ARTHUR MONROY Cardiac Catheterization Angiography Cardiac Coronary Cardiac Catheterization Angiography Cardiac Coronary 15109 11/13 MORGAN TEIXEIRA Catheterization Of Artery Of Extremity Catheterization Of Artery Of Extremity 17755 11/13 MORGAN TEIXEIRA Cardiac Cath Postoperative Coronary Angiography Left Heart Ventriculography Cardiac Cath Postoperative Coronary Angiography Left Heart Ventriculography 08449 11/13 LLUVIA MORGAN Laurent Naomi Cardiac Catheterization Angiography Cardiac Catheterization Angiography 97648 11/13 LLUVIA MORGAN Mehran Salgado Health Maint. Unlisted Preventive Medicine [facility] Service 02299 11/13 MORGAN TEIXEIRA Combined Right And Left Heart Catheterization W Retrograde Left Heart Catheteriz Combined Right And Left Heart Catheterization W Retrograde Left Heart Catheteriz 77066 11/13 LLUVIA MORGAN Mehran Salgado Electrocardiogram Electrocardiogram 83177 11/05 JOSE CARTER Optical Coherence Tomography 10/31 TK WESTON Ophthalmological New Patient Start Comprehensive Care Ophthalmological New Patient Start Comprehensive Care 93564 10/31 TK WESTON Determination Of Refractive State Determination Of Refractive State 80930 10/31 TK WESTON Spectacles Services Fitting Bifocal Except For Aphakia Spectacles Services Fitting Bifocal Except For Aphakia 80841 10/31 TK WESTON Spectacles Services Fitting Monofocal Except For Aphakia Spectacles Services Fitting Monofocal Except For Aphakia 39255 10/31 TK WESTON Fundoscopic Exam Extensive Initial Exam Fundoscopic Exam Extensive Initial Exam 94285 10/24 JOSE ROBERTS Ophthalmological New Patient Start Comprehensive Care Ophthalmological New Patient Start Comprehensive Care 22910 10/24 JOSE ROBERTS Transrectal Sonogram of Prostate Transrectal Sonogram of Prostate 67463 09/16 DANIEL LAM Ultrasonic Guidance For Needle Biopsy Ultrasonic Guidance For Needle Biopsy 30123 09/16 DANIEL LAM Needle Biopsy Of Prostate Needle Biopsy Of Prostate 69506 09/16 DANIEL LAM EMG Of One Extremity With Related Paraspinal Areas EMG Of One Extremity With Related Paraspinal Areas 29447 08/12 WENDY HALL NCS Right Ulnar Nerve Motor Function NCS Right Ulnar Nerve Motor Function 58865 08/12 WENDY HALL NCS Right Ulnar Nerve Sensory Function (Orthodromic) NCS Right Ulnar Nerve Sensory Function (Orthodromic) 59580 08/12 WENDY HALL NCS Right Median Nerve Motor Function NCS Right Median Nerve Motor Function 66670 08/12 WENDY HALL NCS Right Median Nerve Sensory Function (Orthodromic) NCS Right Median Nerve Sensory Function (Orthodromic) 84310 08/12 WENDY HALL Disease management program, follow-up/kodak e ment 07/29 ALEXX JORDAN Telephone calls by a registered nurse to a disease management program member for monitoring purposes; per month 07/29 ALEXX JORDAN Nursing a e ment/evaluation 07/29 ALEXX JORDAN Patient Counseling Medical Management Individual Patient Patient Counseling Medical Management Individual Patient 01087 07/29 ALEXX JORDAN Patient Training And Self-Care Skills Patient Training And Self-Care Skills 27120 07/29 ALEXX JORDAN Fluoroscopic Guidance/Localiz Of Needle For Spinal Injection 07/22 JOSE RUVALCABA Corticosteroid Inj Interlaminar Cervical C7 - T1 07/22 JOSE RUVALCABA Echo (2-D) Mode Complete 07/15 MORGAN TEIXEIRA Echocardiogram Doppler Color Flow Velocity Mapping Echocardiogram Doppler Color Flow Velocity Mapping 62157 07/15 MORGAN TEIXEIRA Echocardiogram Doppler Echocardiogram Doppler 64283 07/15 MORGAN TEIXEIRA Disease management program, follow-up/kodak e ment 07/02 ALEXX JORDAN Telephone calls by a registered nurse to a disease management program member for monitoring purposes; per month 07/02 ALEXX JORDAN Nursing a e ment/evaluation 07/02 ALEXX JORDAN Patient Counseling Medical Management Individual Patient Patient Counseling Medical Management Individual Patient 75328 07/02 ALEXX JORDAN Patient Training And Self-Care Skills Patient Training And Self-Care Skills 13802 07/02 ALEXX JORDAN Injection Of Trigger Point(s) One Or Two Muscle Group(s) Injection Of Trigger Point(s) One Or Two Muscle Group(s) 81695 07/01 GISELLA COTTRELL [facility] Electrocardiogram Electrocardiogram 59071 05/21 GABRIELA PAEZ [facility] Social History Combined list of available smoking, tobacco, and other social history from Department of [facility] and [facility] facilities. Social History Type Response Date Comment Sourc e Tobacco smoking status NHIS VA-TOBACCO USER EVERY DAY 12/29/2022 [facility] History of tobacco use VA-TOBACCO DOESNT USE WI 30 MIN WAKEUP 12/29/2022 [facility] History of tobacco use MD-TOBACCO NEVER USED 01/01/2022 [facility] History of tobacco use VA-TOBACCO USER EVERY DAY 12/17/2020 [facility] History of tobacco use LIFETIME NON-TOBACCO USER 09/20/2017 [facility] History of tobacco use LIFETIME NON-TOBACCO USER 04/29/2015 [facility] This section is an empty social history section. [facility] Assessment and Plan Combined list of future care activities from Department of [facility] and [facility] facilities (e.g., assessment and plan notes, appointments, orders, and referrals). Additional future care activities may be listed in the Plan of Care section. Result Assessment and Plan Date Source Assessment and Plan No data available for this section 04/29/2025 Ambulatory Pharmacy Functional Status Combined list of recent functional and cognitive assessments recorded at [facility] of [employer] and [facility] (MD).MD Functional [place] Measurement (FIM) Scale: 1 = Total Assistance (Subject = 0% +), 2 = Maximal Assistance (Subject = 25% +), 3 = Moderate Assistance (Subject = 50% +), 4 = Minimal Assistance (Subject = 75% +), 5 = Supervision, 6 = Modified [place] (Device), 7 = Complete [place] (Timely, Safely). Assessment Date/Time Source Assessment Type Assessment Skill Assessment Score Assessment Details No data available for this section
--- OUTSIDE RECORDS SUMMARY | 2025-04-28 20:05 | XMS_ITS | Clinical Summary ---
Author Organization [facility] Address [address] [place] [address] Phone Care Team Providers Care Profiling Machine Setup Operator Name Role Phone Provider, None Primary Care [...] on file Legal Sex Male 1:12 PM AUDITOR Gender Identity Not on file Sexual Orientation Not on file Last Filed Vital Signs Vital Sign Reading Time Taken Comments Blood Pressure 147/80 11/27/2016 1:24 PM AUDITOR Pulse 72 11/27/2016 1:24 PM AUDITOR Temperature 36.8 C (98.3 F) 11/27/2016 1:24 PM AUDITOR Respiratory Rate 16 11/27/2016 1:24 PM AUDITOR Oxygen Saturation 96% 11/27/2016 1:24 PM AUDITOR Inhaled Oxygen Concentration - - Weight 90.7 kg (200 lb) 11/27/2016 1:24 PM AUDITOR Height 185.4 cm (6' 1) 11/27/2016 1:24 PM AUDITOR Body Mass Index 26.39 11/27/2016 1:24 PM AUDITOR Plan of Treatment Health Maintenance Due Date [...] age to complete this topic Care Teams Profiling Machine Setup Operator Relationship Specialty Start Date End Date Provider, None [place] PCP - General 11/27/16
--- OUTSIDE RECORDS SUMMARY | 2025-04-28 20:06 | XMS_ITS | Clinical Summary ---
Author Organization [employer] [facility] Address [address] [place] [address] Care Team Providers Care Certified Nurses' Aide Name Role Phone Unavailable Primary Care Provider Unavailabl e Medications testosterone (Fortesta) 10 mg/0.5 gram /actuation Gel in Metered-dose Pump Apply 4 pumps to the skin daily as directed. 180 Gram 04/28/2023 1:00 PM CDT 3 Active eszopiclone (LUNESTA) 3 mg Tablet Take 1 Tablet (3 mg) by mouth daily at bedtime. 90 Tablet 08/30/2023 2:08 PM JIG HAND 3 Active HYDROcodone-ac etaminophen (NORCO) 5-325 mg tablet Take 1-2 Tablets by mouth every 4-6 hours as needed for pain. 50 Tablet 09/02/2023 11:57 AM JIG HAND 3 Active famotidine (PEPCID) 20 mg tablet Take 1 Tablet (20 mg) by mouth daily. 90 Tablet 3 10/04/2023 12:08 PM JIG HAND 3 Active clonazePAM (KlonoPIN) 0.5 mg Tablet Take 0.5-1 tablet by mouth daily as needed for anxiety. 14 Tablet 2 01/17/2024 12:56 PM CDT 4 Active testosterone 10 mg/0.5 gram /actuation Gel in Metered-dose Pump Place 40 mg ( 4 pumps ) on the skin daily. 90 Gram 5 09/19/2024 2:51 PM JIG HAND 4 Active methylPREDNISo lone (MEDROL DOSPACK) 4 mg Tablets, Dose Pack Take as directed on package 21 Each 05/01/2024 12:01 PM CDT 4 Active fluticasone propionate (FLONASE) 50 mcg/spray [place], Suspension nasal inhaler Administer 2 sprays in [...] 1:13 PM CDT 5 04/30/20 25 Active cefdinir (OMNICEF) 300 mg capsule Take 1 Capsule (300 mg) by mouth every 12 hours for 7 days. 14 Capsule 04/27/2025 10:13 AM CDT 5 05/04/20 25 Active eszopiclone (LUNESTA) 3 mg Tablet [...] (1 - 1-dose 75+ series) 12/03/2030 Insurance [employer]
--- OUTSIDE RECORDS SUMMARY | 2025-04-28 20:08 | XMS_ITS | Referral Summary ---
Author Organization [facility] 1 Address [address] [place] [address] Care Team Providers Care Superintendent Automotive Name Role Phone Keagan Saldana MD Primary Care Provider [phone] Mikel Villeda MD Unavailable [phone] Alan Medina MD Unavailable [phone] Wali Boyce MD Unavailable [phone] Antonio Reddy MD Unavailable [phone] Andrea Sam MD Unavailable [phone] Sony Marina MD PhD Unavailable [phone] Luther Cameron MD Unavailable [phone] Encounters Date Type Department Care Team Description 04/26/2025 Telephone [facility] [address] [place] [phone] Yudith Jones 04/26/2025 Telephone [facility] [address] [place] [address] Keagan Saldana MD Symptom Based Call 04/26/2025 [facility] ED Outreach [facility] Accountable Care Organization [address] [place] [address] Gillian Lee MA 04/24/2025 10:33 PM CDT - 04/25/2025 3:13 AM CDT Emergency [facility] Emergency Department 1 [place] [address] Bob Ríos MD Abdominal pain (Primary Dx); Urinary problem in male Discharge Disposition: Discharge to home or self care 04/19/2025 [facility] IP Outreach [address] [address] Barb Colon LPN 04/18/2025 Orders Only [facility] Urology [address] [facility] Office Building [address] [place] [address] Elmer Boyce MD Prostate cancer (HCC) (Primary Dx) 04/17/2025 6:31 AM CDT - 04/18/2025 12:58 PM CDT Hospital Encounter [address] [phone] Elmer Boyce MD Prostate cancer (HCC) Discharge Disposition: Discharge to home or self care 04/17/2025 8:30 AM CDT - 04/17/2025 12:30 PM CDT Surgery [facility] Operating Room [address] [place] [phone] Elmer Boyce MD XI PROSTATECTOMY - LAPAROSCOPIC ROBOTIC ASSISTED 04/17/2025 8:30 AM CDT Anesthesia Event [facility] Operating Room [address] [place] [phone] Deisy Etienne MD Kraenzle, Elliott 04/03/2025 10:30 AM CDT Pre-Admission Testing [facility] [address] [place], [place] [phone] Preoperative testing (Primary Dx); Urination frequency 02/15/2025 Results Follow-Up [facility] Urology [address] [place] [address] Office Building [address] [place] [address] Elmer Boyce MD PET/CT Prostate Cancer PSMA Skull to Thigh 02/14/2025 12:39 PM CDT - 02/14/2025 11:59 PM CDT Hospital Encounter [facility] - PET [address] Floor [address] [place], [place] [phone] Discharge Disposition: Discharge to home or self care 02/14/2025 12:38 PM CDT - 02/14/2025 11:59 PM CDT Hospital Encounter [facility] - PET [address] [place], [place] [phone] Prostate cancer (HCC) Discharge Disposition: Discharge to home or self care 02/07/2025 Results Follow-Up [facility] at [address] [phone] Feliz Floyd NP XR Chest Pa Lateral 2 Views 02/07/2025 10:35 AM CDT Ancillary Procedure [facility] Imaging at [address] [phone] Acute cough 02/04/2025 Telephone [facility] Urology [id number] [place], [place] [address]N Medical Office Building 1 [place] [address] Luther Cameron MD 02/02/2025 11:00 AM CDT Office Visit [facility] at [address] [phone] Radha Walton NP Acute cough (Primary Dx) 02/01/2025 Orders Only [facility] Urology [address] [facility] Medical Office Building [address] [place] [address] Elmer Boyce MD Prostate cancer (HCC) (Primary Dx) 02/01/2025 Orders Only [facility] Urology [address] [facility] Medical Office Building [address] [place] [address] Elmer Boyce MD 02/01/2025 Telephone [facility] Surgery [address] [place] [address], [place] [address] Gwen Kay EMT 02/01/2025 10:00 AM CDT Consult [facility] Radiation Oncology [address] [place] [phone] Sony Marina MD PhD Prostate cancer (HCC) (Primary Dx); Malignant neoplasm of prostate (HCC) 01/31/2025 10:20 AM CDT Office Visit [facility] Urology [address] [facility] Office Building [address] [place] [address] Elmer Boyce MD Prostate cancer (HCC) (Primary [...] nostril as needed for rhinitis or allergies Active famotidine (PEPCID) 40 mg tablet Take [...] for up to 10 days 20 capsule Active acetaminophen (TYLENOL) 500 mg tablet Take [...] to 10 days For constipation. 20 capsule Active eszopiclone (LUNESTA) 3 mg tablet Take [...] 11/04/2023 Assessment & Plan (11/04/2023 10:57 AM SALVAGE SUPERVISOR): Pepcid 40 mg at bedtime Esophagram Dermatochalasis [...] 06/29/2023 Assessment & Plan (11/04/2023 10:56 AM SALVAGE SUPERVISOR): Pepcid 40 mg at bedtime Esophagram Neck [...] anxiety Assessment & Plan (11/24/2022 2:09 PM SALVAGE SUPERVISOR): Generally well controlled, though occasionally has episodes, [...] pain Assessment & Plan (11/24/2022 2:11 PM SALVAGE SUPERVISOR): Has joint pain in multiple sites; notes [...] (09/09/2022): Added automatically from request for surgery [id number] Seasonal allergic rhinitis due to pollen 022 Assessment & Plan (07/26/2022 10:58 AM CDT): Nasal saline spray (Simply saline, Little Remedies, [place], [place]) 2 second sprays or 2 squeezes into [...] Nasal saline spray (Simply saline, Little Remedies, [place], [place]) 2 second sprays or 2 squeezes into [...] 07/26/2022 Assessment & Plan (11/04/2023 10:56 AM SALVAGE SUPERVISOR): Pepcid 40 mg at bedtime Esophagram Laryngopharyngeal reflux discussed and Handout provided Assessment & Plan (07/26/2022 11:00 AM CDT): Call if no improvement for trial of Pepcid LPR discussed and Handout provided Dupuytren's contracture of left hand 11/17/2021 Overview (11/17/2021): Added automatically from request for surgery [id number] History of colonic polyps 03/11/2021 Overview (03/11/2021): Added automatically from request for surgery [id number] S/P cervical spinal fusion 02/03/2021 Assessment & [...] nodules Assessment & Plan (11/05/2020 9:46 AM SALVAGE SUPERVISOR): Seen on CTA for monitoring thoracic aortic aneurysm -continue to monitor, stable in size -no history of tobacco use, no pulmonary symptoms. BPH (benign prostatic hyperplasia) 06/19/2020 Overview (06/19/2020): Added automatically from request for surgery [id number] Assessment & Plan (06/19/2024 2:15 PM CDT): [...] b.i.d. Assessment & Plan (11/24/2022 2:09 PM SALVAGE SUPERVISOR): Stable, well controlled; good flow with urination; [...] daily Assessment & Plan (11/24/2022 2:07 PM SALVAGE SUPERVISOR): Stable, well controlled; blood pressure at target [...] medicine Assessment & Plan (11/09/2021 8:25 PM SALVAGE SUPERVISOR): Blood pressure at target today, no signs or symptoms of hypotention Continue lisinopril 2.5 mg daily Assessment & Plan (05/06/2021 10:54 AM CDT): Stable, well controlled, continue lisinopril 2.5 mg Assessment & Plan (11/05/2020 9:43 AM SALVAGE SUPERVISOR): Well controlled, bp at target today though [...] dose. Assessment & Plan (11/05/2020 9:42 AM SALVAGE SUPERVISOR): Well controlled with Lexapro 20 mg; will [...] diet Assessment & Plan (11/24/2022 2:07 PM SALVAGE SUPERVISOR): Stable, well controlled; continue atorvastatin 20 mg [...] therapy Assessment & Plan (11/05/2020 9:42 AM SALVAGE SUPERVISOR): Stable, tolearting statin therapy well -continue atorvastatin [...] PM CDT): Stable, well controlled; follows with [facility] Continue to monitor for any changes [...] with Urology, continue to monitor PSA Biopsy Blue Ridge 6, patient in active surveillance of prostate cancer Assessment & Plan (02/03/2021 3:55 PM CDT): Briefly reviewed results of biopsy with patient, patient to follow-up with urology for further recommendations Assessment & Plan (11/05/2020 9:41 AM SALVAGE SUPERVISOR): Stable, following with urology for management -patient [...] PCV 13 02/03/2021 Pneumococcal Conjugate Pcv20 12/29/2022,05/07/20 Smallpox 12/06/2002,11/30/2002 Td, adsorbed 04/20/2002 Tdap 11/05/2020,10/03/2016,04/20/2016 [...] on file Medical Devices Implanted Type Area Oracle Database Consultant Device Identifier Shelf Expiration Date Model / Serial / Lot Plate Plate Cervical-Th oracic Spine Description:Plate x 5 Screw Screw Cervical-Th oracic Spine Description:Screw x 10 [employer] [id number] Urolift Implant Urological - [id number] Implanted:Qty: 3 on 07/24/2020 by Luther Cameron MD at N/A: Urethra [employer] 09/02/2021 [id number] / / [id number] [employer] Ortholoc 47mm 3di Fusion Low Profile Compression Slot Foot Right [id number] - [id number] Implanted:Qty: 1 on 09/02/2023 by Marcello Storey Jr., MD at Right: First Toe [employer] [id number] / / [employer] Ortholoc 3di 3.5mm 38mm Low Profile Self Tapping Threaded [id number] - [id number] Implanted:Qty: 1 on 09/02/2023 by Marcello Storey Jr., MD at Right: First Toe [employer] [id number] / / [employer] Ortholoc 3.5mm 2.8mm 16mm Lock On [place] Polyaxial Self Tap Midfoot [id number] - [id number] Implanted:Qty: 2 on 09/02/2023 by Marcello Storey Jr., MD at Right: First Toe [employer] [id number] / / [employer] Ortholoc 3.5mm 2.5mm 26mm Low Profile Head Self Tap Midfoot [id number] - [id number] Implanted:Qty: 1 on 09/02/2023 by Marcello Storey Jr., MD at Right: First Toe [employer] [id number] / / [employer] Ortholoc 3.5mm 2.8mm 18mm Lock On [place] Polyaxial Self Tap Midfoot [id number] - [id number] Implanted:Qty: 1 on 09/02/2023 by Marcello Storey Jr., MD at Right: First Toe [employer] [id number] / / [employer] Ortholoc 3.5mm 2.5mm 20mm Low Profile Head Self Tap Midfoot [id number] - [id number] Implanted:Qty: 1 on 09/02/2023 by Marcello Storey Jr., MD at Right: First Toe [employer] [id number] / / Procedures Procedure Name Priority Date/Time [...] 12 :13 PM CDT Prostate cancer (HCC) MI AN PROCEDURE PLACEHOLDER Routine 04/17/2025 8:59 AM CDT MI AN ELECTIVE ENDOTRACHEAL AIRWAY Routine 04/17/2025 8:59 [...] cough PSA DIAGNOSTIC Routine 11/26/2024 11:57 AM SALVAGE SUPERVISOR Hypogonadism in male Prostate cancer (HCC) COLONOSCOPY 08/16/2024 11:00 AM SALVAGE SUPERVISOR HEPATITIS C ANTIBODY Routine 11/05/2020 9:30 AM SALVAGE SUPERVISOR Encounter to establish care from Last 3 Months or Most Recently Relevant to Health Maintenance Results * (ABNORMAL) Urinalysis reflex to microscopic and culture Urine (04/25/2025 1:51 AM CDT) Color, ur Yellow Yellow Clarity, ur Clear Clear [facility] Specific gravity, ur 1.022 1.003 - 1.030 [facility] pH, urine 6.0 [facility] Comment: Interpretive Data U rine pH is affected by diet, medications, systemic acid-base disturbances, and renal tubular function. pH may affect urinary stone formation. For example, urine pH below 6.0 may help reduce the tendency for calcium phosphate stones and pH greater than 6.0 may reduce the tendency for uric acid stone formation. Source: [facility] Current Interpretive Data was last revised on 2017 Protein, ur ql Negative Negative [facility] Glucose, ur ql Negative Negative [facility] Ketones, ur Negative Negative [facility] Bilirubin, ur Negative Negative [facility] Blood, ur 3+(A) Negative [facility] Urobilinogen, ur <2.0 <2.0 mg/dL [facility] Nitrite, ur Negative Negative [facility] Leukocyte esterase, ur 1+(A) Negative [facility] UA reflex comment Reflex to microscopic UA will be performed. [facility] Urine 04/25/2025 1:51 AM CDT 04/25/2025 1:56 AM CDT Bay Rawls MD LAB MICROBIOLOGY - [facility] ORDERABLES Final Result [facility] Department [place] [address] * (ABNORMAL) Urinalysis, microscopic only (04/25/2025 1:51 AM CDT) WBC, ur 21-50(A) 0 - 5 /HPF RBC, ur 6-10(A) 0 - 2 /HPF [facility] Epithelial cells, squamous, ur 1-5 0 - 5 /HPF [facility] Epithelial cells, transitional, ur 1-5 0 - 0 /HPF [facility] Bacteria, ur Trace(A) [facility] Mucous, ur Present(A) [facility] Hyaline casts, ur 1-5 0 - 10 /LPF [facility] Culture Reflex Comment Reflex to urine culture will be performed. [facility] Urine 04/25/2025 1:51 AM CDT 04/25/2025 1:56 AM CDT Bay Rawls MD LAB URINE ORDERABLES Fi nal Result Performing Organization Address [facility] Co de Phone Number [facility] [place] [address] * Urine culture Urine (04/25/2025 1:51 AM CDT) Report Final Report: No growth Urine 04/25/2025 1:51 AM CDT 04/25/2025 4:07 AM CDT Narrative [facility] - 04/26/2025 6:55 AM CDT Urine culture reflexed based upon urinalysis results. Testing performed by [facility] Microbiology Laboratory ([phone]) Bay Rawls MD LAB MICROBIOLOGY - GENE RAL ORDERABLES Final Result Performing Organization Address [facility] Co de Phone Number [facility] Department [place] [address] * (ABNORMAL) eGFR (04/24/2025 11:54 PM CDT) [...] MD LAB BLOOD ORDERABLES Fi nal Result [facility] [place] [address] * (ABNORMAL) Differential, auto (04/24/2025 11:54 PM CDT) Neutrophil abs 12.16(H) 1.50 - 6.50 K/cumm Imm gran abs 0.07 0.00 - 0.10 K/cumm [facility] Lymphocyte abs 1.06 0.80 - 3.30 K/cumm [facility] Monocyte abs 0.73 0.20 - 0.80 K/cumm [facility] Eosinophil abs 0.46 0.00 - 0.50 K/cumm [facility] Basophil abs 0.04 0.00 - 0.10 K/cumm [facility] Neutrophil pct 83.7 % [facility] Comment: Interpretive Data Percent cell count reference ranges are not reported, since discordance with absolute values may lead to misinterpretation of CBC data. Current Interpretive Data was last revised on 2018. Imm gran pct 0.5 % [facility] Comment: Interpretive Data Percent cell count reference ranges are not reported, since discordance with absolute values may lead to misinterpretation of CBC data. Current Interpretive Data was last revised on 2018. Lymphocyte pct 7.3 % [facility] Comment: Interpretive Data Percent cell count reference ranges are not reported, since discordance with absolute values may lead to misinterpretation of CBC data. Current Interpretive Data was last revised on 2018. Monocyte pct 5.0 % [facility] Comment: Interpretive Data Percent cell count reference ranges are not reported, since discordance with absolute values may lead to misinterpretation of CBC data. Current Interpretive Data was last revised on 2018. Eosinophil pct 3.2 % [facility] Comment: Interpretive Data Percent cell count reference ranges are not reported, since discordance with absolute values may lead to misinterpretation of CBC data. Current Interpretive Data was last revised on 2018. Basophil pct 0.3 % [facility] Comment: Interpretive Data Percent cell count reference ranges are not reported, since discordance with absolute values may lead to misinterpretation of CBC data. Current Interpretive Data was last revised on 2018. Blood 04/24/2025 11:5 4 PM CDT 04/25/2025 12:06 AM CDT us [place] Rawls MD LAB BLOOD ORDERABLES Fi nal Result [facility] [place] [address] * (ABNORMAL) CBC with auto differential (04/24/2025 11:54 PM CDT) WBC 14.52(H) 3.80 - 9.90 K/cumm Hgb 12.4(L) 13.0 - 17.5 g/dL [facility] Hct 36.7(L) 38.9 - 50.3 % [facility] Plt 264 150 - 400 K/cumm [facility] MPV 10.6 9.1 - 12.3 fL [facility] RBC 4.04(L) 4.30 - 5.80 M/cumm [facility] MCV 90.8 81.3 - 96.4 fL [facility] MCH 30.7 27.1 - 33.3 pg [facility] MCHC 33.8 32.3 - 35.7 g/dL [facility] RDW CV 13.6 11.1 - 14.9 % [facility] RDW SD 44.1 35.7 - 48.1 fL [facility] NRBC abs 0.00 0.00 - 0.01 K/cumm [facility] Blood 04/24/2025 11:5 4 PM CDT 04/25/2025 12:06 AM CDT Bay Rawls MD LAB BLOOD ORDERABLES Fi nal Result Performing Organization Address [facility] Co de Phone Number [facility] [place] [address] * Protime-INR (04/24/2025 11:54 PM CDT) [facility] PT 12.5 9.7 - 13.0 sec INR 1.15 0.90 - 1.20 [facility] Comment: Interpretive data Oral anticoagulant therapeutic [...] ORDERABLES Fi nal Result Performing Organization Address [facility] [place] [address] * (ABNORMAL) Lipase (04/24/2025 11:54 PM CDT) [facility] Lipase 9(L) 10 - 99 Units/L Blood 04/24/2025 11:5 4 PM CDT 04/25/2025 12:07 AM CDT Bay Rawls MD LAB BLOOD ORDERABLES Fi nal Result Performing Organization Address [facility] [place] [address] * (ABNORMAL) Comprehensive metabolic panel (04/24/2025 11:54 PM CDT) Sodium 137 135 - 145 mmol/L Potassium, pl 4.2 3.3 - 4.9 mmol/L [facility] Chloride 101 97 - 110 mmol/L [facility] CO2 27 22 - 32 mmol/L [facility] Anion gap 9 2 - 15 mmol/L [facility] BUN 20 6 - 25 mg/dL [facility] Creatinine 1.36(H) 0.80 - 1.30 mg/dL [facility] Glucose 127 70 - 199 mg/dL [facility] Comment: Interpretive Data Fasting glucose >/= [...] 2022. Calcium 9.4 8.5 - 10.3 mg/dL [facility] Bilirubin, total 1.2 0.1 - 1.2 mg/dL [facility] Protein, pl 7.0 6.5 - 8.5 g/dL [facility] Albumin 4.0 3.5 - 5.0 g/dL [facility] Alk phos 112 40 - 130 Units/L [facility] ALT 19 7 - 55 Units/L [facility] AST 23 10 - 50 Units/L [facility] Blood 04/24/2025 11:5 4 PM CDT 04/25/2025 12:07 AM CDT us [place] Rawls MD LAB BLOOD ORDERABLES Fi nal Result [facility] Department [place] [address] * eGFR (04/17/2025 11:20 PM CDT) eGFR [...] Boyce MD LAB BLOOD ORDERABLES Final Result [facility] Department of Laboratories [place], [place] [phone] * (ABNORMAL) CBC without differential (04/17/2025 11:20 PM CDT) WBC 10.70(H) 3.80 - 9.90 K/cumm Hgb 11.8(L) 13.0 - 17.5 g/dL [facility] Hct 33.6(L) 38.9 - 50.3 % [facility] Plt 194 150 - 400 K/cumm [facility] MPV 11.1 9.1 - 12.3 fL [facility] RBC 3.83(L) 4.30 - 5.80 M/cumm [facility] MCV 87.7 81.3 - 96.4 fL [facility] MCH 30.8 27.1 - 33.3 pg [facility] MCHC 35.1 32.3 - 35.7 g/dL [facility] RDW CV 13.0 11.1 - 14.9 % [facility] RDW SD 41.1 35.7 - 48.1 fL [facility] NRBC abs 0.00 0.00 - 0.01 K/cumm [facility] Blood 04/17/2025 11:2 0 PM CDT 04/18/2025 12:17 AM CDT Elmer Boyce MD LAB BLOOD ORDERABLES Final Result [facility] [place] [address] * Basic metabolic panel (04/17/2025 11:20 PM CDT) Sodium 137 135 - 145 mmol/L Potassium, pl 4.3 3.3 - 4.9 mmol/L [facility] Chloride 97 97 - 110 mmol/L [facility] CO2 28 22 - 32 mmol/L [facility] Anion gap 12 2 - 15 mmol/L [facility] BUN 21 6 - 25 mg/dL [facility] Creatinine 1.23 0.80 - 1.30 mg/dL [facility] Glucose 147 70 - 199 mg/dL [facility] Comment: Interpretive Data Fasting glucose >/= [...] 2022. Calcium 8.9 8.5 - 10.3 mg/dL [facility] Blood 04/17/2025 11:2 0 PM CDT 04/18/2025 12:16 AM CDT Elmer Boyce MD LAB BLOOD ORDERABLES Final Result [facility] [place] [address] * POCT glucose (04/17/2025 2:59 PM CDT) Glucose, POC 136 70 - 199 mg/dL Blood 04/17/2025 2:59 PM CDT 04/17/2025 2:59 PM CDT us Elmer Boyce MD LAB POCT ORDERABLES - DEVICE Final Result Performing Organization Address [facility] Co de Phone Number [facility] [place] [address] * Surgical pathology (04/17/2025 12:13 PM CDT) Tissue (Prostate, Prostatectomy) 04/17/2025 12:13 PM CDT Tissue specimen (specimen) (Lymph node, dissection/region al resection) 04/17/2025 12:13 PM CDT Narrative PATHOLOGY [facility] - 04/23/2025 12:03 PM CDT EPIC results best viewed via link to PDF [facility] [place] [address] Note to Patients: This report may contain [...] Gender: M : 1955 (Age: 69) Address: [address] [place] [id number] [facility] #: [id number] Taken:04/17/2025 Received:04/17/2025 Reported: 04/23/2025 Patient Type: [facility] Inpatient Service: Surgery Location: [facility] 6900 Physician(s): Elmer Boyce M.D. Keagan Saldana M.D. Diagnosis: A. Prostate, radical prostatectomy - Prostatic acinar adenocarcinoma, Blue Ridge Score 3+4=7 (10-20% pattern 4), grade group [...] radially sectioned; a six-left base margin radially sectioned.[id number] posterior, apex to base (A9 location of biopsy clip); [id number] posterior, apex to base; [id number] anterior base (slice 1), middle slice three, [...] B5-B 6-one lymph node in two cassettes; K8-C3-bzkofpmey fat. Jar 0. donta/04/18/2025 14:35 Gross Resident:Vicky Lovelace M.D. PA(s): Margarita Acosta M.D. Nila Palaniappan, M.D. CANCER CASE SUMMARY FOR CARCINOMA OF THE PROSTATE GLAND Procedure: Radical prostatectomy Prostate size: Weight: 70.4g Size: 4.9 x 4.5 x 4.9 cm Histologic Type: Acinar adenocarcinoma, conventional (usual) Histologic Grade: Grade Group and Blue Ridge Score: Grade group 2 (Ivan Score 3+4=7) [...] Surgical Pathology and Flow Cytometry Departments at [facility] as part of an ongoing quality control engineer program and in compliance with federally mandated [...] Surgical Pathology and Flow Cytometry Departments of [facility]. It has not been cleared or approved by the U. S. Food and Drug Administration. IMAGES AND SCANNED DOCUMENTS, IF INCLUDED, ONLY VIEWABLE IN PDF VERSION OF REPORT us Elmer Boyce MD LAB PATHOLOGY ORDERAB LES Final Result PATHOLOGY [facility] 3rd Floor [place], [place] [phone] * MI AN ELECTIVE ENDOTRACHEAL AIRWAY, MI AN PROCEDURE PLACEHOLDER (04/17/2025 8:59 AM CDT) Courtney Shaffer, HILDA - 04/17/2025 8:59 AM CDT Courtney Fowler [...] intubation. Atraumatic intubation; dentition unchanged following intubation. Deisy Etienne MD ANESTHESIA ORDERABLES F inal Result * POCT glucose (04/17/2025 8:18 AM CDT) Glucose, POC 103 70 - 199 mg/dL Blood 04/17/2025 8:18 AM CDT 04/17/2025 8:18 AM CDT us Elmer Boyce MD LAB POCT ORDERABLES - DEVICE Final Result [facility] Department of Laboratories [place], [place] [id number] * Check Sample (04/17/2025 7:10 AM CDT) ABO Rh A Positive [facility] HCLL OTHER 04/17/2025 7:10 AM CDT 04/17/2025 7:21 AM CDT Elmer Boyce MD LAB BLOOD ORDERABLES Final Result Performing Organization Address City/[facility]/ZIP Co de Phone Number [facility] Department [place] [address] [facility] * TYPE AND SCREEN 14 DAY (04/03/2025 12:12 PM CDT) ABO Rh A Positive Virgilio, indirect Negative [facility] Blood 04/03/2025 12:1 2 PM CDT 04/03/2025 1:33 PM CDT Narrative [facility] - 04/03/2025 2:27 PM CDT Is this test being ordered in advance for a procedure?->Yes Expected date of procedure:->04/17/25 Has the patient been transfused in the past 3 months?->No Kalani Wagner NP LAB BLOOD BANK TEST ORD ERABLES Final Result Performing Organization Address [facility] Co de Phone Number [facility] Department [place] [address] * eGFR (04/03/2025 12:12 PM CDT) Pathologist [facility] eGFR 73 >=60 mL/min/1. 73 m2 Comment: [...] 04/03/2025 1:37 PM CDT us Kalani Wagner DUMPSTER OPERATOR LAB BLOOD ORDERABLES Fi nal Result [facility] [place] [address] * Differential, auto (04/03/2025 12:12 PM CDT) Neutrophil abs 6.16 1.50 - 6.50 K/cumm Imm gran abs 0.03 0.00 - 0.10 K/cumm [facility] Lymphocyte abs 1.77 0.80 - 3.30 K/cumm [facility] Monocyte abs 0.58 0.20 - 0.80 K/cumm [facility] Eosinophil abs 0.26 0.00 - 0.50 K/cumm [facility] Basophil abs 0.03 0.00 - 0.10 K/cumm [facility] Neutrophil pct 69.9 % [facility] Comment: Interpretive Data Percent cell count reference ranges are not reported, since discordance with absolute values may lead to misinterpretation of CBC data. Current Interpretive Data was last revised on 2018. Imm gran pct 0.3 % [facility] Comment: Interpretive Data Percent cell count reference ranges are not reported, since discordance with absolute values may lead to misinterpretation of CBC data. Current Interpretive Data was last revised on 2018. Lymphocyte pct 20.0 % [facility] Comment: Interpretive Data Percent cell count reference ranges are not reported, since discordance with absolute values may lead to misinterpretation of CBC data. Current Interpretive Data was last revised on 2018. Monocyte pct 6.6 % [facility] Comment: Interpretive Data Percent cell count reference ranges are not reported, since discordance with absolute values may lead to misinterpretation of CBC data. Current Interpretive Data was last revised on 2018. Eosinophil pct 2.9 % [facility] Comment: Interpretive Data Percent cell count reference ranges are not reported, since discordance with absolute values may lead to misinterpretation of CBC data. Current Interpretive Data was last revised on 2018. Basophil pct 0.3 % [facility] Comment: Interpretive Data Percent cell count reference ranges are not reported, since discordance with absolute values may lead to misinterpretation of CBC data. Current Interpretive Data was last revised on 2018. Blood 04/03/2025 12:1 2 PM CDT 04/03/2025 1:38 PM CDT Kalani Wagner DUMPSTER OPERATOR LAB BLOOD ORDERABLES Fi nal Result [facility] [place] [address] * CBC with auto differential (04/03/2025 12:12 PM CDT) WBC 8.83 3.80 - 9.90 K/cumm Hgb 15.4 13.0 - 17.5 g/dL [facility] Hct 44.4 38.9 - 50.3 % [facility] Plt 210 150 - 400 K/cumm [facility] MPV 10.9 9.1 - 12.3 fL [facility] RBC 5.02 4.30 - 5.80 M/cumm [facility] MCV 88.4 81.3 - 96.4 fL [facility] MCH 30.7 27.1 - 33.3 pg [facility] MCHC 34.7 32.3 - 35.7 g/dL [facility] RDW CV 12.9 11.1 - 14.9 % [facility] RDW SD 41.5 35.7 - 48.1 fL [facility] NRBC abs 0.00 0.00 - 0.01 K/cumm [facility] Blood 04/03/2025 12:1 2 PM CDT 04/03/2025 1:38 PM CDT Kalani Wagner DUMPSTER OPERATOR LAB BLOOD ORDERABLES Fi nal Result Performing Organization Address City/[facility]/ZIP Co de Phone Number [facility] [place] [address] * Urine culture Urine, clean voided (04/03/2025 12:12 PM CDT) Pathologist [facility] Report Final Report: Less than 100,000 colonies/mL (clinically insignificant growth based on current clinical standards) Organism (CLINICALLY INSIGNIFICANT GROWTH [facility] Urine, clean voided 04/03/2025 12:12 PM CDT 04/03/2025 1:27 PM CDT Narrative [facility] - 04/04/2025 2:51 PM CDT Testing performed by [facility] ([phone]) Kalani Wagner DUMPSTER OPERATOR LAB MICROBIOLOGY - GENE RAL ORDERABLES Final Result Performing Organization Address [facility] de Phone Number [facility] Department [place] [address] * Basic metabolic panel (04/03/2025 12:12 PM CDT) Pathologist [facility] Sodium 138 135 - 145 mmol/L Potassium, pl 3.8 3.3 - 4.9 mmol/L [facility] Chloride 101 97 - 110 mmol/L [facility] CO2 29 22 - 32 mmol/L [facility] Anion gap 8 2 - 15 mmol/L [facility] BUN 25 6 - 25 mg/dL [facility] Creatinine 1.10 0.80 - 1.30 mg/dL [facility] Glucose 90 70 - 199 mg/dL [facility] Comment: Interpretive Data Fasting glucose >/= [...] 2022. Calcium 9.4 8.5 - 10.3 mg/dL [facility] Blood 04/03/2025 12:1 2 PM CDT 04/03/2025 1:37 PM CDT Kalani Wagner DUMPSTER OPERATOR LAB BLOOD ORDERABLES Fi nal Result [facility] [place] [address] * ECG 12 lead (04/03/2025 11:57 AM CDT) Pathologist [facility] Ventricular Rate EKG/Min 53 BPM [facility] Atrial Rate 53 BPM [facility] MI-Interval (MSEC) 206 ms [facility] QRS-Interval (MSEC) 90 ms [facility] QT-Interval (MSEC) 416 ms [facility] QTc 390 ms [facility] P [place] 54 degrees [facility] R [place] 54 degrees [facility] T [place] 62 degrees [facility] Diagnosis Sinus bradycardia Otherwise normal ECG When compared with ECG of 27-NOV-2021 08:37, no significant change Confirmed by UMU MENDEZ M.D ([id number]) on 04/04/2025 8:23:01 AM [facility] 04/03/2025 11:5 7 AM CDT 04/04/2025 8:23 AM CDT us Kalani Wagner DUMPSTER OPERATOR ECG ORDERABLES Final R esult Performing Organization Address City/[facility]/ZIP Co de Phone Number [facility] * PET/CT Prostate Cancer PSMA Skull [...] EXAMINATION: PSMA-PET/CT DATE OF STUDY: 02/14/2025 SCANNER: [facility] [employer] (SQ1). This is a high-resolution scanner, which [...] obtained. The study was interpreted on the Vaxart workstation. The total scanned area was mid [...] EXAMINATION: PSMA-PET/CT DATE OF STUDY: 02/14/2025 SCANNER: [facility] [employer] (SQ1). This is a high-resolution scanner, which [...] obtained. The study was interpreted on the Vaxart workstation. The total scanned area was mid [...] Hipolito Alvarado M.D. RW T: Report ID: [id number] Reading Location: [id number] Procedure Note Hipolito Alvarado MD - 02/07/2025 [...] Hipolito Alvarado M.D. RW T: Report ID: [id number] Reading Location: [id number] Radha Walton DUMPSTER OPERATOR IMG XR PROCEDURES Final Re sult * (ABNORMAL) PSA diagnostic (11/26/2024 11:57 AM SALVAGE SUPERVISOR) PSA-Total 8.78(H) <=5.40 ng/mL Comment: Interpretive Data [...] revised 22. Blood 11/26/2024 11:5 7 AM SALVAGE SUPERVISOR 11/26/2024 7:57 PM SALVAGE SUPERVISOR us Luther Cameron MD LAB BLOOD ORDERABLES Fi nal Result Performing Organization Address City/State/ZIP Co la Phone Number [facility] [address] [facility] [place] [address] * Colonoscopy (08/16/2024 11:00 AM SALVAGE SUPERVISOR) Anatomical Region Laterality Modality Other Narrative Procedure Note Sarah Motta DO - 08/16/2024 11:00 AM CST [facility] Patient Name: Sarah Martinez Procedure Date: 08/16/2024 11:00AM Date of : 1955 Admit Type: Outpatient Age: 68 Gender: Male Attending MD: Sarah Motta D.O. Room: [facility] ENDOSCOPY ROOM 3 Note Status: Finalized Patient [...] scope was passed under direct vision. TheColonoscope [id number] was introduced through the anus and advanced [...] 11:00 AM Procedure Code(s): --- Professional --- 25578, Colonoscopy, flexible; diagnostic, including collection of specimen(s) by brushing or washing, when performed (separateprocedure) --- Technical --- 70853, Colonoscopy, flexible; diagnostic, including collection of specimen(s) by brushing or washing, when performed (separateprocedure) Diagnosis Code(s): --- Professional --- Z86.010, Personal history of colonic polyps K64.8, Other hemorrhoids K57.30, Diverticulosis of large intestine without perforation orabscess without bleeding --- Technical --- Z86.010, Personal history of colonic polyps K64.8, Other hemorrhoids K57.30, Diverticulosis of large intestine without perforation orabscess without bleeding CPT copyright 2020 [employer]. All rights reserved. The codes documented in this report are preliminary and upon interior mechanic reviewmay be revised to meet current compliance requirements. Recognized by the [employer] for promoting quality in endoscopy Sarah Motta DO ENDOSCOPY PROCEDURES Final Res ult * Hepatitis C antibody (11/05/2020 9:30 AM SALVAGE SUPERVISOR) Hep C Ab Nonreactive Nonreactive [facility] [...] 2019. Blood specimen (specimen) 11/05/2020 9:30 AM SALVAGE SUPERVISOR 11/05/2020 12:22 PM SALVAGE SUPERVISOR Keagan Saldana MD LAB MICROBIOLOGY - GENERA L ORDERABLES Final Result [facility] [address] [place] [address] from Last 3 Months or Most Recently Relevant to Health Maintenance Insurance MEDICARE [facility] MEDICARE FOR LIFE Advance Directives For more information, please contact: [phone] * Full Code (Latest Code Status on [...] 7:26 AM 08/22/2023 7:26 AM Care Teams Superintendent Automotive Relationship Specialty Start Date End Date Keagan Saldana MD [address] [place] [address] PCP - General Family Medicine 11/05/20 Mikel Villeda MD [address] [place] [address] Surgeon Plastic Surgery 11/23/21 Alan Medina MD [address] [place] [address] Wiping Cloth Cutter Cardiology 11/23/21 Wali Boyce MD [address] [place] [id number] Urologist Urology 11/23/21 Antonio Reddy MD [address] [place] [address] Urologist Urology 11/23/21 Andrea Sam MD [address] [place] [address] Keel Press Operator Gastroenterology 11/23/21 Sony Marina MD PhD [address] [place] [address] Radiation Oncologist Radiation Oncology 02/01/[address] [place] [address] [facility] [address] [place] [address] Consulting Physician Urology 02/01/25
--- OUTSIDE RECORDS SUMMARY | 2025-04-28 20:08 | XMS_ITS ---
Author Organization [facility] Medical [facility] [address] Address [address] [place] [address] Care Team Providers Care Mineral Wool Insulation Supervisor Name Role Phone Keagan Saldana MD Primary Care Provider [phone] Mikel Villeda MD Unavailable [phone] Alan Medina MD Unavailable [phone] Wali Boyce MD Unavailable [phone] Antonio Reddy MD Unavailable [phone] Andrea Sam MD Unavailable [phone] Sony Marina MD PhD Unavailable [phone] Luther Cameron MD Unavailable [phone] Active Problems Problem Noted Date Diagnosed Date [...] 11/04/2023 Assessment & Plan (11/04/2023 10:57 AM RESIDENT CAREGIVER): Pepcid 40 mg at bedtime Esophagram Dermatochalasis [...] 06/29/2023 Assessment & Plan (11/04/2023 10:56 AM RESIDENT CAREGIVER): Pepcid 40 mg at bedtime Esophagram Neck [...] anxiety Assessment & Plan (11/24/2022 2:09 PM RESIDENT CAREGIVER): Generally well controlled, though occasionally has episodes, [...] pain Assessment & Plan (11/24/2022 2:11 PM RESIDENT CAREGIVER): Has joint pain in multiple sites; notes [...] (09/09/2022): Added automatically from request for surgery [id number] Seasonal allergic rhinitis due to pollen 022 Assessment & Plan (07/26/2022 10:58 AM CDT): Nasal saline spray (Simply saline, Little Remedies, [place], [place]) 2 second sprays or 2 squeezes into [...] Nasal saline spray (Simply saline, Little Remedies, [place], [place]) 2 second sprays or 2 squeezes into [...] 07/26/2022 Assessment & Plan (11/04/2023 10:56 AM RESIDENT CAREGIVER): Pepcid 40 mg at bedtime Esophagram Laryngopharyngeal reflux discussed and Handout provided Assessment & Plan (07/26/2022 11:00 AM CDT): Call if no improvement for trial of Pepcid LPR discussed and Handout provided Dupuytren's contracture of left hand 11/17/2021 Overview (11/17/2021): Added automatically from request for surgery [id number] History of colonic polyps 03/11/2021 Overview (03/11/2021): Added automatically from request for surgery [id number] S/P cervical spinal fusion 02/03/2021 Assessment & [...] nodules Assessment & Plan (11/05/2020 9:46 AM RESIDENT CAREGIVER): Seen on CTA for monitoring thoracic aortic aneurysm -continue to monitor, stable in size -no history of tobacco use, no pulmonary symptoms. BPH (benign prostatic hyperplasia) 06/19/2020 Overview (06/19/2020): Added automatically from request for surgery [id number] Assessment & Plan (06/19/2024 2:15 PM CDT): [...] b.i.d. Assessment & Plan (11/24/2022 2:09 PM RESIDENT CAREGIVER): Stable, well controlled; good flow with urination; [...] daily Assessment & Plan (11/24/2022 2:07 PM RESIDENT CAREGIVER): Stable, well controlled; blood pressure at target [...] medicine Assessment & Plan (11/09/2021 8:25 PM RESIDENT CAREGIVER): Blood pressure at target today, no signs or symptoms of hypotention Continue lisinopril 2.5 mg daily Assessment & Plan (05/06/2021 10:54 AM CDT): Stable, well controlled, continue lisinopril 2.5 mg Assessment & Plan (11/05/2020 9:43 AM RESIDENT CAREGIVER): Well controlled, bp at target today though [...] dose. Assessment & Plan (11/05/2020 9:42 AM RESIDENT CAREGIVER): Well controlled with Lexapro 20 mg; will [...] diet Assessment & Plan (11/24/2022 2:07 PM RESIDENT CAREGIVER): Stable, well controlled; continue atorvastatin 20 mg [...] therapy Assessment & Plan (11/05/2020 9:42 AM RESIDENT CAREGIVER): Stable, tolearting statin therapy well -continue atorvastatin [...] PM CDT): Stable, well controlled; follows with [facility] Continue to monitor for any changes [...] recommendations Assessment & Plan (11/05/2020 9:41 AM RESIDENT CAREGIVER): Stable, following with urology for management -patient [...]
--- OUTSIDE RECORDS SUMMARY | 2025-04-28 20:08 | XMS_ITS | Clinical Summary ---
Author Organization [facility] Medical [facility] 1 Address [address] [place] [address] Care Team Providers Care Emergency Medical Technician/Driver Name Role Phone Keagan Saldana MD Primary Care Provider [phone] Mikel Villeda MD Unavailable [phone] Alan Medina MD Unavailable [phone] Wali Boyce MD Unavailable [phone] Antonio Reddy MD Unavailable [phone] Andrea Sam MD Unavailable [phone] Sony Marina MD PhD Unavailable [phone] Luther Cameron MD Unavailable [phone] Allergies Active Allergy Reactions Criticality Noted Date [...] 11/04/2023 Assessment & Plan (11/04/2023 10:57 AM UMBRELLA CUTTER): Pepcid 40 mg at bedtime Esophagram Dermatochalasis [...] herniated disc at C6-7, C7-T1. D/W patient: demian Caution with any motion, activities that Chest [...] 06/29/2023 Assessment & Plan (11/04/2023 10:56 AM UMBRELLA CUTTER): Pepcid 40 mg at bedtime Esophagram Neck [...] anxiety Assessment & Plan (11/24/2022 2:09 PM UMBRELLA CUTTER): Generally well controlled, though occasionally has episodes, [...] pain Assessment & Plan (11/24/2022 2:11 PM UMBRELLA CUTTER): Has joint pain in multiple sites; notes [...] (09/09/2022): Added automatically from request for surgery [id number] Seasonal allergic rhinitis due to pollen 022 Assessment & Plan (07/26/2022 10:58 AM CDT): Nasal saline spray (Simply saline, Little Remedies, [place], [place]) 2 second sprays or 2 squeezes into [...] Nasal saline spray (Simply saline, [place] Remedies, [place], [place]) 2 second sprays or 2 squeezes into [...] 07/26/2022 Assessment & Plan (11/04/2023 10:56 AM UMBRELLA CUTTER): Pepcid 40 mg at bedtime Esophagram Laryngopharyngeal reflux discussed and Handout provided Assessment & Plan (07/26/2022 11:00 AM CDT): Call if no improvement for trial of Pepcid LPR discussed and Handout provided Dupuytren's contracture of left hand 11/17/2021 Overview (11/17/2021): Added automatically from request for surgery [id number] History of colonic polyps 03/11/2021 Overview (03/11/2021): Added automatically from request for surgery [id number] S/P cervical spinal fusion 02/03/2021 Assessment & [...] nodules Assessment & Plan (11/05/2020 9:46 AM UMBRELLA CUTTER): Seen on CTA for monitoring thoracic aortic aneurysm -continue to monitor, stable in size -no history of tobacco use, no pulmonary symptoms. BPH (benign prostatic hyperplasia) 06/19/2020 Overview (06/19/2020): Added automatically from request for surgery [id number] Assessment & Plan (06/19/2024 2:15 PM CDT): [...] b.i.d. Assessment & Plan (11/24/2022 2:09 PM UMBRELLA CUTTER): Stable, well controlled; good flow with urination; [...] daily Assessment & Plan (11/24/2022 2:07 PM UMBRELLA CUTTER): Stable, well controlled; blood pressure at target [...] medicine Assessment & Plan (11/09/2021 8:25 PM UMBRELLA CUTTER): Blood pressure at target today, no signs or symptoms of hypotention Continue lisinopril 2.5 mg daily Assessment & Plan (05/06/2021 10:54 AM CDT): Stable, well controlled, continue lisinopril 2.5 mg Assessment & Plan (11/05/2020 9:43 AM UMBRELLA CUTTER): Well controlled, bp at target today though [...] dose. Assessment & Plan (11/05/2020 9:42 AM UMBRELLA CUTTER): Well controlled with Lexapro 20 mg; will [...] diet Assessment & Plan (11/24/2022 2:07 PM UMBRELLA CUTTER): Stable, well controlled; continue atorvastatin 20 mg [...] therapy Assessment & Plan (11/05/2020 9:42 AM UMBRELLA CUTTER): Stable, tolearting statin therapy well -continue atorvastatin [...] PM CDT): Stable, well controlled; follows with [facility] Continue to monitor for any changes [...] with Urology, continue to monitor PSA Biopsy [place] 6, patient in active surveillance of prostate cancer Assessment & Plan (02/03/2021 3:55 PM CDT): Briefly reviewed results of biopsy with patient, patient to follow-up with urology for further recommendations Assessment & Plan (11/05/2020 9:41 AM UMBRELLA CUTTER): Stable, following with urology for management -patient [...] Type Department Care Team Description 04/26/2025 Telephone [facility] Surgery [address] [place] [address] Yudith Jones 04/26/2025 Telephone [facility] [address] [address] Keagan Saldana MD Symptom Based Call 04/26/2025 ISABEL ED Outreach [facility] Care [address] [address] Gillian Lee MA 04/24/2025 10:33 PM CDT - 04/25/2025 3:13 AM CDT Emergency [facility] Emergency Department 1 [place] [address] Bob Ríos MD Abdominal pain (Primary Dx); Urinary problem in male Discharge Disposition: Discharge to home or self care 04/19/2025 ISABEL IP Outreach [facility] Care [address] [address] Barb Colon LPN 04/18/2025 Orders Only [facility] Urology [address] [facility] Medical Office Building [address] [place] [phone] Elmer Boyce MD Prostate cancer (HCC) (Primary Dx) 04/17/2025 8:30 AM CDT - 04/17/2025 12:30 PM CDT Surgery [facility] Operating Room 1 [place] [address] Elmer Boyce MD XI PROSTATECTOMY - LAPAROSCOPIC ROBOTIC ASSISTED 04/17/2025 8:30 AM CDT Anesthesia Event [facility] Operating Room 1 [place] [phone] Deisy Etienne MD Kraenzle, Elliott 04/17/2025 6:31 AM CDT - 04/18/2025 12:58 PM CDT Hospital Encounter [address] [phone] Elmer Boyce MD Prostate cancer (HCC) Discharge Disposition: Discharge to home or self care 04/03/2025 10:30 AM CDT Pre-Admission Testing [facility] ([facility]) [address] [place] [phone] Preoperative testing (Primary Dx); Urination frequency 02/15/2025 Results Follow-Up [facility] Urology [address] [facility] Office Building [address] [place] [phone] Elmer Boyce MD PET/CT Prostate Cancer PSMA Skull to Thigh 02/14/2025 12:39 PM CDT - 02/14/2025 11:59 PM CDT Hospital Encounter [facility] - PET [address] [facility] 8 [place], [place] [phone] Discharge Disposition: Discharge to home or self care 02/14/2025 12:38 PM CDT - 02/14/2025 11:59 PM CDT Hospital Encounter [facility] - PET [address] [facility] Floor 8 [place] [address] Prostate cancer (HCC) Discharge Disposition: Discharge to home or self care 02/07/2025 10:35 AM CDT Ancillary Procedure [facility] Imaging at [address] [phone] Acute cough 02/07/2025 Results Follow-Up [facility] Convenient Care at [address] [phone] Feliz Floyd NP XR Chest Pa Lateral 2 Views 02/04/2025 Telephone [facility] Urology [phone] [place] [address] Medical Office Building 1 [place] [address] Luther Cameron MD 02/02/2025 11:00 AM CDT Office Visit [facility] Convenient Care at [address] [phone] Radha Walton NP Acute cough (Primary Dx) 02/01/2025 10:00 AM CDT Consult [facility] Radiation Oncology [address] [place] [address] Sony Marina MD PhD Prostate cancer (HCC) (Primary Dx); Malignant neoplasm of prostate (HCC) 02/01/2025 Orders Only [facility] Urology [facility] Medical Office Building [address] [place] [phone] Elmer Boyce MD Prostate cancer (HCC) (Primary Dx) 02/01/2025 Orders Only [facility] Urology [address] [place] [address] Medical Office Building [address] [place] [phone] Elmer Boyce MD 02/01/2025 Telephone [facility] Surgery [address] [place] [address] Gwen Kay EMT 01/31/2025 10:20 AM CDT Office Visit [facility] Urology [address] [facility] Medical Office Building [address] [place] [phone] Elmer Boyce MD Prostate cancer (HCC) (Primary [...] 08/16/2024, 06/16/2021 Medical Devices Implanted Type Area Fabric Coating Supervisor Device Identifier Shelf Expiration Date Model / Serial / Lot Plate Plate Cervical-Th oracic Spine Description:Plate x 5 Screw Screw Cervical-Th oracic Spine Description:Screw x 10 [employer] [id number] Urolift Implant Urological - [id number] Implanted:Qty: 3 on 07/24/2020 by Luther Cameron MD at [facility] N/A: Urethra [employer] 09/02/2021 [id number] / / [id number] [employer] Ortholoc 47mm 3di Fusion Low Profile Compression Slot Foot Right [id number] - [id number] Implanted:Qty: 1 on 09/02/2023 by Marcello Storey Jr., MD at [facility] Right: First Toe [employer] [id number] / / L[employer] Ortholoc 3di 3.5mm 38mm Low Profile Self Tapping Threaded [id number] - [id number] Implanted:Qty: 1 on 09/02/2023 by Marcello Storey Jr., MD at [facility] Right: First Toe [employer] [id number] / / [employer] Ortholoc 3.5mm 2.8mm 16mm Lock On Mercedes Polyaxial Self Tap Midfoot [id number] - [id number] Implanted:Qty: 2 on 09/02/2023 by Marcello Storey Jr., MD at [facility] Right: First Toe [employer] [id number] / / [employer] Ortholoc 3.5mm 2.5mm 26mm Low Profile Head Self Tap Midfoot [id number] - [id number] Implanted:Qty: 1 on 09/02/2023 by Marcello Storey Jr., MD at [facility] Right: First Toe [employer] [id number] / / [employer] Ortholoc 3.5mm 2.8mm 18mm Lock On Mercedes Polyaxial Self Tap Midfoot [id number] - [id number] Implanted:Qty: 1 on 09/02/2023 by Marcello Storey Jr., MD at [facility] Right: First Toe [employer] [id number] / / [employer] Ortholoc 3.5mm 2.5mm 20mm Low Profile Head Self Tap Midfoot [id number] - [id number] Implanted:Qty: 1 on 09/02/2023 by Marcello Storey Jr., MD at [facility] Right: First Toe [employer] [id number] / / Procedures Procedure Name Priority Date/Time [...] 12 :13 PM CDT Prostate cancer (HCC) NC AN PROCEDURE PLACEHOLDER Routine 04/17/2025 8:59 AM CDT NC AN ELECTIVE ENDOTRACHEAL AIRWAY Routine 04/17/2025 8:59 [...] cough PSA DIAGNOSTIC Routine 11/26/2024 11:57 AM UMBRELLA CUTTER Hypogonadism in male Prostate cancer (HCC) COLONOSCOPY 08/16/2024 11:00 AM UMBRELLA CUTTER HEPATITIS C ANTIBODY Routine 11/05/2020 9:30 AM UMBRELLA CUTTER Encounter to establish care from Last 3 Months or Most Recently Relevant to Health Maintenance Results * (ABNORMAL) Urinalysis reflex to microscopic and culture Urine (04/25/2025 1:51 AM CDT) Color, ur Yellow Yellow Clarity, ur Clear Clear [facility] Specific gravity, ur 1.022 1.003 - 1.030 [facility] pH, urine 6.0 [facility] Comment: Interpretive Data U rine pH is affected by diet, medications, systemic acid-base disturbances, and renal tubular function. pH may affect urinary stone formation. For example, urine pH below 6.0 may help reduce the tendency for calcium phosphate stones and pH greater than 6.0 may reduce the tendency for uric acid stone formation. Source: [employer] Current Interpretive Data was last revised on 2017 Protein, ur ql Negative Negative [facility] Glucose, ur ql Negative Negative [facility] Ketones, ur Negative Negative [facility] Bilirubin, ur Negative Negative [facility] Blood, ur 3+(A) Negative [facility] Urobilinogen, ur <2.0 <2.0 mg/dL [facility] Nitrite, ur Negative Negative [facility] Leukocyte esterase, ur 1+(A) Negative [facility] UA reflex comment Reflex to microscopic UA will be performed. [facility] Urine 04/25/2025 1:51 AM CDT 04/25/2025 1:56 AM CDT Bay Rawls MD LAB MICROBIOLOGY - GENE RAL ORDERABLES Final Result Performing Organization Address [facility] [place] [facility] Co de Phone Number [facility] [place] [address] * (ABNORMAL) Urinalysis, microscopic only (04/25/2025 1:51 AM CDT) WBC, ur 21-50(A) 0 - 5 /HPF RBC, ur 6-10(A) 0 - 2 /HPF [facility] Epithelial cells, squamous, ur 1-5 0 - 5 /HPF [facility] Epithelial cells, transitional, ur 1-5 0 - 0 /HPF [facility] Bacteria, ur Trace(A[facility] Mucous, ur Present(A[facility] Hyaline casts, ur 1-5 0 - 10 /LPF [facility] Culture Reflex Comment Reflex to urine culture will be performed. [facility] Urine 04/25/2025 1:51 AM CDT 04/25/2025 1:56 AM CDT Bay Rawls MD LAB URINE ORDERABLES Fi nal Result Performing Organization Address [facility] [place] [facility]/ZIP Co de Phone Number [facility] [place] [address] * Urine culture Urine (04/25/2025 1:51 AM CDT) Report Final Report: No growth Urine 04/25/2025 1:51 AM CDT 04/25/2025 4:07 AM CDT Narrative [facility] - 04/26/2025 6:55 AM CDT Urine culture reflexed based upon urinalysis results. Testing performed by [facility] ([phone]) Bay Rawls MD LAB MICROBIOLOGY - GENE RAL ORDERABLES Final Result Performing Organization Address City/[facility]/ZIP Co de Phone Number [facility] Department [place] [address] * (ABNORMAL) eGFR (04/24/2025 11:54 PM CDT) [...] ORDERABLES Fi nal Result Performing Organization Address [facility] [place] [facility]/ZIP Co de Phone Number CARLEN[facility] Department [place] [address] * (ABNORMAL) Differential, auto (04/24/2025 11:54 PM CDT) Pathologist [facility] Neutrophil abs 12.16(H) 1.50 - 6.50 K/cumm Imm gran abs 0.07 0.00 - 0.10 K/cumm [facility] Lymphocyte abs 1.06 0.80 - 3.30 K/cumm [facility] Monocyte abs 0.73 0.20 - 0.80 K/cumm [facility] Eosinophil abs 0.46 0.00 - 0.50 K/cumm [facility] Basophil abs 0.04 0.00 - 0.10 K/cumm [facility] Neutrophil pct 83.7 % [facility] Comment: Interpretive Data Percent cell count reference ranges are not reported, since discordance with absolute values may lead to misinterpretation of CBC data. Current Interpretive Data was last revised on 2018. Imm gran pct 0.5 % [facility] Comment: Interpretive Data Percent cell count reference ranges are not reported, since discordance with absolute values may lead to misinterpretation of CBC data. Current Interpretive Data was last revised on 2018. Lymphocyte pct 7.3 % [facility] Comment: Interpretive Data Percent cell count reference ranges are not reported, since discordance with absolute values may lead to misinterpretation of CBC data. Current Interpretive Data was last revised on 2018. Monocyte pct 5.0 % [facility] Comment: Interpretive Data Percent cell count reference ranges are not reported, since discordance with absolute values may lead to misinterpretation of CBC data. Current Interpretive Data was last revised on 2018. Eosinophil pct 3.2 % [facility] Comment: Interpretive Data Percent cell count reference ranges are not reported, since discordance with absolute values may lead to misinterpretation of CBC data. Current Interpretive Data was last revised on 2018. Basophil pct 0.3 % [facility] Comment: Interpretive Data Percent cell count reference ranges are not reported, since discordance with absolute values may lead to misinterpretation of CBC data. Current Interpretive Data was last revised on 2018. Blood 04/24/2025 11:5 4 PM CDT 04/25/2025 12:06 AM CDT Bay Rawls MD LAB BLOOD ORDERABLES Fi nal Result Performing Organization Address [facility] Co de Phone Number [facility] [place] [address] * (ABNORMAL) CBC with auto differential (04/24/2025 11:54 PM CDT) WBC 14.52(H) 3.80 - 9.90 K/cumm Hgb 12.4(L) 13.0 - 17.5 g/dL [facility] Hct 36.7(L) 38.9 - 50.3 % [facility] Plt 264 150 - 400 K/cumm [facility] MPV 10.6 9.1 - 12.3 fL [facility] RBC 4.04(L) 4.30 - 5.80 M/cumm [facility] MCV 90.8 81.3 - 96.4 fL [facility] MCH 30.7 27.1 - 33.3 pg [facility] MCHC 33.8 32.3 - 35.7 g/dL [facility] RDW CV 13.6 11.1 - 14.9 % [facility] RDW SD 44.1 35.7 - 48.1 fL [facility] NRBC abs 0.00 0.00 - 0.01 K/cumm [facility] Blood 04/24/2025 11:5 4 PM CDT 04/25/2025 12:06 AM CDT Bay Rawls MD LAB BLOOD ORDERABLES Fi nal Result [facility] Department [place] [address] * Protime-INR (04/24/2025 11:54 PM CDT) PT 12.5 9.7 - 13.0 sec INR 1.15 0.90 - 1.20 [facility] Comment: Interpretive data Oral anticoagulant therapeutic ranges: Venous thromboembolism prophylaxis or treatment: 2.0-3.0 CARDIOLOGY Standard range: 2.0-3.0 High-intensity range: 2.5-3.5 Refer to indication-specific guidelines for appropriate target ranges for prosthetic heart valve replacement. Current interpretive data was last revised on 2019. Blood 04/24/2025 11:5 4 PM CDT 04/25/2025 12:16 AM CDT Bay Rawls MD LAB BLOOD ORDERABLES Fi nal Result Performing Organization Address City/[facility]/ZIP Co de Phone Number [facility] Department [place] [address] * (ABNORMAL) Lipase (04/24/2025 11:54 PM CDT) Pathologist [facility] Lipase 9(L) 10 - 99 Units/L Blood 04/24/2025 11:5 4 PM CDT 04/25/2025 12:07 AM CDT Bay Rawls MD LAB BLOOD ORDERABLES Fi nal Result Performing Organization Address City/[facility] de Phone Number [facility] [place] [address] * (ABNORMAL) Comprehensive metabolic panel (04/24/2025 11:54 PM CDT) [facility] Sodium 137 135 - 145 mmol/L Potassium, pl 4.2 3.3 - 4.9 mmol/L [facility] Chloride 101 97 - 110 mmol/L [facility] CO2 27 22 - 32 mmol/L [facility] Anion gap 9 2 - 15 mmol/L [facility] BUN 20 6 - 25 mg/dL [facility] Creatinine 1.36(H) 0.80 - 1.30 mg/dL [facility] Glucose 127 70 - 199 mg/dL [facility] Comment: Interpretive Data Fasting glucose >/= 126 [...] Calcium 9.4 8.5 - 10.3 mg/dL [facility] Bilirubin, total 1.2 0.1 - 1.2 mg/dL [facility] Protein, pl 7.0 6.5 - 8.5 g/dL [facility] Albumin 4.0 3.5 - 5.0 g/dL [facility] Alk phos 112 40 - 130 Units/L [facility] ALT 19 7 - 55 Units/L [facility] AST 23 10 - 50 Units/L [facility] Blood 04/24/2025 11:5 4 PM CDT 04/25/2025 12:07 AM CDT Bay Rawls MD LAB BLOOD ORDERABLES nal Result [facility] Department [place] [address] * eGFR (04/17/2025 11:20 PM CDT) eGFR [...] BLOOD ORDERABLES Final Result Performing Organization Address City/[facility]/ZIP Co de Phone Number [facility] [place] [address] * (ABNORMAL) CBC without differential (04/17/2025 11:20 PM CDT) [facility] WBC 10.70(H) 3.80 - 9.90 K/cumm Hgb 11.8(L) 13.0 - 17.5 g/dL [facility] Hct 33.6(L) 38.9 - 50.3 % [facility] Plt 194 150 - 400 K/cumm [facility] MPV 11.1 9.1 - 12.3 fL [facility] RBC 3.83(L) 4.30 - 5.80 M/cumm [facility] MCV 87.7 81.3 - 96.4 fL [facility] MCH 30.8 27.1 - 33.3 pg [facility] MCHC 35.1 32.3 - 35.7 g/dL [facility] RDW CV 13.0 11.1 - 14.9 % [facility] RDW SD 41.1 35.7 - 48.1 fL [facility] NRBC abs 0.00 0.00 - 0.01 K/cumm [facility] Blood 04/17/2025 11:2 0 PM CDT 04/18/2025 12:17 AM CDT Elmer Boyce MD LAB BLOOD ORDERABLES Final Result Performing Organization Address City/[facility]/ZIP Co de Phone Number [facility] [place] [address] * Basic metabolic panel (04/17/2025 11:20 PM CDT) Sodium 137 135 - 145 mmol/L Potassium, pl 4.3 3.3 - 4.9 mmol/L [facility] Chloride 97 97 - 110 mmol/L [facility] CO2 28 22 - 32 mmol/L [facility] Anion gap 12 2 - 15 mmol/L [facility] BUN 21 6 - 25 mg/dL [facility] Creatinine 1.23 0.80 - 1.30 mg/dL [facility] Glucose 147 70 - 199 mg/dL [facility] Comment: Interpretive Data Fasting glucose >/= 126 [...] 2022. Calcium 8.9 8.5 - 10.3 mg/dL [facility] Blood 04/17/2025 11:2 0 PM CDT 04/18/2025 12:16 AM CDT Elmer Boyce MD LAB BLOOD ORDERABLES Final Result Performing Organization Address City/[facility]/ZIP Co de Phone Number [facility] Department [place] [address] * POCT glucose (04/17/2025 2:59 PM CDT) Glucose, POC 136 70 - 199 mg/dL Blood 04/17/2025 2:59 PM CDT 04/17/2025 2:59 PM CDT Elmer Boyce MD LAB POCT ORDERABLES - DEVICE Final Result Performing Organization Address [facility]/State/ZIP Co de Phone Number CARLEN[facility] [place] [address] * Surgical pathology (04/17/2025 12:13 PM CDT) Tissue (Prostate, Prostatectomy) 04/17/2025 12:13 PM CDT Tissue specimen (specimen) (Lymph node, dissection/region al resection) 04/17/2025 12:13 PM CDT Narrative PATHOLOGY [facility] - 04/23/2025 12:03 PM CDT EPIC results best viewed via link to PDF [facility] Aysha Patton [facility] [place] [address] Note to Patients: This report may contain [...] Gender: M : 1955 (Age: 69) Address: [address] [place], [place] [id number] Hospital #: [id number] Taken:04/17/2025 Received:04/17/2025 Reported: 04/23/2025 Patient Type: [facility] Inpatient Service: Surgery Location: [facility] 776 Physician(s): Elmer Boyce M.D. Keagan Saldana M.D. Diagnosis: A. Prostate, radical prostatectomy - Prostatic acinar adenocarcinoma, [place] Score 3+4=7 (10-20% pattern 4), grade group [...] radially sectioned; a six-left base margin radially sectioned.[id number] posterior, apex to base (A9 location of biopsy clip); [id number]-wlde posterior, apex to base; [id number]-orlkn anterior base (slice 1), middle slice three, [...] B5-B 6-one lymph node in two cassettes; H2-Z3-iportqimu fat. Jar 0. [facility]/04/18/2025 14:35 Gross Resident:Vicky Lovelace M.D. PA(s): Margarita Acosta M.D. Nila Palaniappan, M.D. CANCER CASE SUMMARY FOR CARCINOMA OF THE PROSTATE GLAND Procedure: Radical prostatectomy Prostate size: Weight: 70.4g Size: 4.9 x 4.5 x 4.9 cm Histologic Type: Acinar adenocarcinoma, conventional (usual) Histologic Grade: Grade Group and [place] Score: Grade group 2 ([place] Score 3+4=7) Percentage of Pattern 4: 11-20% [...] Surgical Pathology and Flow Cytometry Departments at [facility] as part of an ongoing fuel quality tech program and in compliance with federally mandated [...] Surgical Pathology and Flow Cytometry Departments of [facility]. It has not been cleared or approved by the U. S. Food and Drug Administration. IMAGES AND SCANNED DOCUMENTS, IF INCLUDED, ONLY VIEWABLE IN PDF VERSION OF REPORT us Elmer Boyce MD LAB PATHOLOGY ORDERAB LES Final Result PATHOLOGY [facility] 3rd Floor [place], [place] [phone] * NC AN ELECTIVE ENDOTRACHEAL AIRWAY, NC AN PROCEDURE PLACEHOLDER (04/17/2025 8:59 AM CDT) [...] - DEVICE Final Result Performing Organization Address [facility] Co de Phone Number [facility] Department [place] [address] * Check Sample (04/17/2025 7:10 AM CDT) ABO Rh A Positive [facility] HCLL OTHER 04/17/2025 7:10 AM CDT 04/17/2025 7:21 AM CDT us Elmer Boyce MD LAB BLOOD ORDERABLES Final Result Performing Organization Address City/[facility] Co de Phone Number [facility] Department [place] [address] BJ * TYPE AND SCREEN 14 DAY (04/03/2025 12:12 PM CDT) ABO Rh A Positive Virgilio, indirect Negative [facility] Blood 04/03/2025 12:1 2 PM CDT 04/03/2025 1:33 PM CDT Narrative [facility] - 04/03/2025 2:27 PM CDT Is this test being ordered in advance for a procedure?->Yes Expected date of procedure:->04/17/25 Has the patient been transfused in the past 3 months?->No Kalani Wagner NP LAB BLOOD BANK TEST ORD ERABLES Final Result Performing Organization Address [facility]/ZIP Co de Phone Number [facility] [place] [address] * eGFR (04/03/2025 12:12 PM CDT) Pathologist [facility] eGFR 73 >=60 mL/min/1. 73 m2 Comment: [...] CDT 04/03/2025 1:37 PM CDT Kalani Wagner TELEPHONE SERVICE ADVISER LAB BLOOD ORDERABLES Fi nal Result Performing Organization Address [facility]/ZIP Co de Phone Number [facility] Department [place] [address] * Differential, auto (04/03/2025 12:12 PM CDT) Neutrophil abs 6.16 1.50 - 6.50 K/cumm Imm gran abs 0.03 0.00 - 0.10 K/cumm [facility] Lymphocyte abs 1.77 0.80 - 3.30 K/cumm [facility] Monocyte abs 0.58 0.20 - 0.80 K/cumm [facility] Eosinophil abs 0.26 0.00 - 0.50 K/cumm [facility] Basophil abs 0.03 0.00 - 0.10 K/cumm [facility] Neutrophil pct 69.9 % [facility] Comment: Interpretive Data Percent cell count reference ranges are not reported, since discordance with absolute values may lead to misinterpretation of CBC data. Current Interpretive Data was last revised on 2018. Imm gran pct 0.3 % [facility] Comment: Interpretive Data Percent cell count reference ranges are not reported, since discordance with absolute values may lead to misinterpretation of CBC data. Current Interpretive Data was last revised on 2018. Lymphocyte pct 20.0 % [facility] Comment: Interpretive Data Percent cell count reference ranges are not reported, since discordance with absolute values may lead to misinterpretation of CBC data. Current Interpretive Data was last revised on 2018. Monocyte pct 6.6 % [facility] Comment: Interpretive Data Percent cell count reference ranges are not reported, since discordance with absolute values may lead to misinterpretation of CBC data. Current Interpretive Data was last revised on 2018. Eosinophil pct 2.9 % [facility] Comment: Interpretive Data Percent cell count reference ranges are not reported, since discordance with absolute values may lead to misinterpretation of CBC data. Current Interpretive Data was last revised on 2018. Basophil pct 0.3 % [facility] Comment: Interpretive Data Percent cell count reference ranges are not reported, since discordance with absolute values may lead to misinterpretation of CBC data. Current Interpretive Data was last revised on 2018. Blood 04/03/2025 12:1 2 PM CDT 04/03/2025 1:38 PM CDT Kalani Wagner NP LAB BLOOD ORDERABLES Fi nal Result Performing Organization Address [facility]/ZIP Co de Phone Number [facility] Department [place] [address] * CBC with auto differential (04/03/2025 12:12 PM CDT) Pathologist [facility] WBC 8.83 3.80 - 9.90 K/cumm Hgb 15.4 13.0 - 17.5 g/dL [facility] Hct 44.4 38.9 - 50.3 % [facility] Plt 210 150 - 400 K/cumm [facility] MPV 10.9 9.1 - 12.3 fL [facility] RBC 5.02 4.30 - 5.80 M/cumm [facility] MCV 88.4 81.3 - 96.4 fL [facility] MCH 30.7 27.1 - 33.3 pg [facility] MCHC 34.7 32.3 - 35.7 g/dL [facility] RDW CV 12.9 11.1 - 14.9 % [facility] RDW SD 41.5 35.7 - 48.1 fL [facility] NRBC abs 0.00 0.00 - 0.01 K/cumm [facility] Blood 04/03/2025 12:1 2 PM CDT 04/03/2025 1:38 PM CDT Kalani Wagner TELEPHONE SERVICE ADVISER LAB BLOOD ORDERABLES Fi nal Result Performing Organization Address [facility] Co de Phone Number [facility] [place] [address] * Urine culture Urine, clean voided (04/03/2025 12:12 PM CDT) Pathologist [facility] Report Final Report: Less than 100,000 colonies/mL (clinically insignificant growth based on current clinical standards) Organism (CLINICALLY INSIGNIFICANT GROWTH [facility] Urine, clean voided 04/03/2025 12:12 PM CDT 04/03/2025 1:27 PM CDT Narrative [facility] - 04/04/2025 2:51 PM CDT Testing performed by [facility] ([phone]) Kalani Wagner NP LAB MICROBIOLOGY - GENE RAL ORDERABLES Final Result Performing Organization Address [facility]/ZIP Co de Phone Number [facility] Department [place] [address] * Basic metabolic panel (04/03/2025 12:12 PM CDT) [facility] Sodium 138 135 - 145 mmol/L Potassium, pl 3.8 3.3 - 4.9 mmol/L [facility] Chloride 101 97 - 110 mmol/L [facility] CO2 29 22 - 32 mmol/L [facility] Anion gap 8 2 - 15 mmol/L [facility] BUN 25 6 - 25 mg/dL [facility] Creatinine 1.10 0.80 - 1.30 mg/dL [facility] Glucose 90 70 - 199 mg/dL [facility] Comment: Interpretive Data Fasting glucose >/= 126 [...] 2022. Calcium 9.4 8.5 - 10.3 mg/dL [facility] Blood 04/03/2025 12:1 2 PM CDT 04/03/2025 1:37 PM CDT Kalani Wagner NP LAB BLOOD ORDERABLES Fi nal Result Performing Organization Address [facility]/ZIP Co de Phone Number [facility] Department [place] [address] * ECG 12 lead (04/03/2025 11:57 AM CDT) Ventricular Rate EKG/Min 53 BPM [facility] Atrial Rate 53 BPM [facility] NC-Interval (MSEC) 206 ms [facility] QRS-Interval (MSEC) 90 ms [facility] QT-Interval (MSEC) 416 ms [facility] QTc 390 ms [facility] P Mercedes 54 degrees [facility] R Mercedes 54 degrees [facility] T Mercedes 62 degrees [facility] Diagnosis Sinus bradycardia Otherwise normal ECG When compared with ECG of 27-NOV-2021 08:37, no significant change Confirmed by UMU MENDEZ M.D ([id number]) on 04/04/2025 8:23:01 AM [facility] 04/03/2025 11:5 7 AM CDT 04/04/2025 8:23 AM CDT us Kalani Wagner TELEPHONE SERVICE ADVISER ECG ORDERABLES Final R esult [facility] * PET/CT Prostate Cancer PSMA [...] EXAMINATION: PSMA-PET/CT DATE OF STUDY: 02/14/2025 SCANNER: [facility] tsumobia (SQ1). This is a high-resolution scanner, which can result in higher SUVs (and even detection of previously unrecognized small lesions) compared to older scanners. RADIOPHARMACEUTICAL: 10.37 mCi F-18 DCFPyL (Piflufolastat) i.v. Injection site: Right forearm HISTORY: 69-year-old man with prostate cancer diagnosed on 01/07/2025, [place] Score 4+4 = 8, involving the right [...] obtained. The study was interpreted on the [facility] workstation. The total scanned area was mid [...] EXAMINATION: PSMA-PET/CT DATE OF STUDY: 02/14/2025 [facility] ([facility] This is a high-resolution scanner, which can result in higher SUVs (and even detection of previously unrecognized small lesions) compared to older scanners. RADIOPHARMACEUTICAL: 10.37 mCi F-18 DCFPyL (Piflufolastat) i.v. Injection site: Right forearm HISTORY: 69-year-old man with prostate cancer diagnosed on 01/07/2025, [place] Score 4+4 = 8, involving the right [...] obtained. The study was interpreted on the [facility] workstation. The total scanned area was mid [...] Hipolito Alvarado M.D. RW T: Report ID: [id number] Reading Location: [id number] Procedure Note Hipolito Alvarado MD - 02/07/2025 [...] Hipolito Alvarado M.D. RW T: Report ID: [id number] Reading Location: [id number] us Radha Walton TELEPHONE SERVICE ADVISER IMG XR PROCEDURES Final Re sult * (ABNORMAL) PSA diagnostic (11/26/2024 11:57 AM [facility] C[facility]TER) PSA-Total 8.78(H) <=5.40 ng/mL Comment: Interpretive Data [...] revised 22. Blood 11/26/2024 11:5 7 AM [facility] 11/26/2024 7:57 PM [facility] C[facility]TER us Luther Cameron MD LAB BLOOD ORDERABLES Fi nal Result [facility] [address] Department [place] [address] * Colonoscopy (08/16/2024 11:00 AM [facility]MBRELLA CUTTER) Anatomical Region Laterality Modality Other Narrative Procedure Note Sarah Motta, - 08/16/2024 11:00 AM CST Digestive [facility] Patient Name: Sarah Martinez Procedure Date: 08/16/2024 11:00AM Date of : 1955 Admit Type: Outpatient Age: 68 Gender: Male Attending MD: Sarah Motta D.O. Room: [facility] ENDOSCOPY ROOM 3 Note Status: Finalized [...] scope was passed under direct vision. TheColonoscope [id number] was introduced through the anus and advanced [...] 11:00 AM Procedure Code(s): --- Professional --- 57579, Colonoscopy, flexible; diagnostic, including collection of specimen(s) by brushing or washing, when performed (separateprocedure) --- Technical --- 42747, Colonoscopy, flexible; diagnostic, including collection of specimen(s) by brushing or washing, when performed (separateprocedure) Diagnosis Code(s): --- Professional --- Z86.010, Personal history of colonic polyps K64.8, Other hemorrhoids K57.30, Diverticulosis of large intestine without perforation orabscess without bleeding --- Technical --- Z86.010, Personal history of colonic polyps K64.8, Other hemorrhoids K57.30, Diverticulosis of large intestine without perforation orabscess without bleeding CPT copyright 2020 [employer]. All rights reserved. The codes documented in this report are preliminary and upon qualifications examiner reviewmay be revised to meet current compliance requirements. Recognized by the [employer] for promoting quality in endoscopy us Sarah T. Klucka DO ENDOSCOPY PROCEDURES Final Res ult * Hepatitis C antibody (11/05/2020 9:30 AM [facility]RELLA CUTTER) Hep C Ab Nonreactive Nonreactive [facility] BRAUN [...] 2019. Blood specimen (specimen) 11/05/2020 9:30 AM [facility]LLA CUTTER 11/05/2020 12:22 PM [facility]A C[facility]TER Keagan Saldana MD LAB MICROBIOLOGY - GENERA L ORDERABLES Final Result [facility] [address] Department [place] [address] from Last 3 Months or Most Recently Relevant to Health Maintenance Insurance MEDICARE [employer] FOR LIFE Advance Directives For more information, please contact: [phone] * Full Code (Latest Code Status on [...] 7:26 AM 08/22/2023 7:26 AM Care Teams Emergency Medical Technician/Driver Relationship Specialty Start Date End Date Keagan Saldana MD [address] [place] [address] PCP - General Family Medicine 11/05/20 Mikel Villeda MD [address] [place] [address] Surgeon Plastic Surgery 11/23/21 Alan Medina MD [address] [place] [address] Paymaster Of Purses Cardiology 11/23/21 Wali Boyce MD [address] [place] [address] Urologist Urology 11/23/21 Antonio Reddy MD [address] [place] [address] Urologist Urology 11/23/21 Andrea Sam MD [address] [place] [address] [place] [address] [employer] Gastroenterology 11/23/21 Sony Marina MD PhD [address] [place] [address] Radiation Oncologist Radiation Oncology 02/01/25 [place] [id number] [address] Consulting Physician Urology 02/01/25
--- OUTSIDE RECORDS SUMMARY | 2025-04-28 20:09 | XMS_ITS | Clinical Summary ---
Author Organization [facility] Address [address] [place] [address] Care Team Providers Care Upper Stitcher Name Role Phone Alan Medina MD Unavailable [phone] Keagan Saldana MD Primary Care Provider [phone] Allergies Active Allergy Reactions Criticality Noted Date [...] pt will get that paperwork through the [employer] guard. Orthopedic aftercare 04/15/2025 Mild cognitive impairment [...] time. Assessment & Plan (09/03/2024 1:27 PM MOVIE OPERATOR): He has a bicuspid aortic valve with [...] testing. Assessment & Plan (09/13/2022 5:12 PM MOVIE OPERATOR): I recommended that he get an echocardiogram to reassess his aortic valve. I do not hear a murmur. If his echo is stable, would consider exercise stress testing. Arthritis of right foot 09/09/2022 Overview (09/03/2024): Added automatically from request for surgery [id number] Laryngeal spasm 07/26/2022 Rhinitis medicamentosa 07/26/2022 Seasonal allergic rhinitis due to pollen 022 Cough 05/21/2022 Dupuytren's contracture of left hand 11/17/2021 Overview (09/03/2024): Added automatically from request for surgery [id number] BPH (benign prostatic hyperplasia) 06/19/2020 Overview (09/03/2024): Added automatically from request for surgery [id number] Gastroesophageal reflux disease without esophagi tis 08/21/2019 Prostate cancer ([facility]) 08/21/2019 Major depressive disorder 08/21/2019 Thoracic aortic aneurysm without rupture 019 Assessment & Plan (04/15/2025 12:39 PM CDT): Last CTA chest showed a stable aneurysm. Recommend repeating at this time. Continue blood pressure control. He is not currently requiring any antihypertensive therapy. Assessment & Plan (09/03/2024 1:28 PM MOVIE OPERATOR): His aneurysm is stable. Continue blood pressure management. Assessment & Plan (01/31/2024 8:02 AM CDT): He had a CTA chest 09/2021 that showed an aneurysm of 4.3 cm. Recommend repeat CTA for surveillance. Would benefit from strict BP control. Assessment & Plan (09/13/2022 5:13 PM MOVIE OPERATOR): He had a CTA chest last year that showed an aneurysm of 4.3 cm. Continue with echocardiogram. We can consider CTA next year, if his echo is stable. History of chest pain 08/21/2019 AR (congenital aortic regurgitation) ([facility]) 1 10/21/2018 Assessment & Plan (09/03/2024 1:39 PM MOVIE OPERATOR): Most recent echo shows mild to moderate aortic regurgitation. No diastolic murmur auscultated. Can repeat echo next year. Assessment & Plan (01/31/2024 8:03 AM CDT): Recommend echo to evaluate aortic valve given symptoms. If unremarkable, consider stress test given risk factors. Assessment & Plan (09/13/2022 5:12 PM MOVIE OPERATOR): Recommend echo to evaluate aortic valve. Essential hypertension 08/21/2019 Assessment & Plan (04/15/2025 12:40 PM CDT): BP is well controlled. Previously on lisinopril, but now not on antihypertensive therapy due to hypotensive episodes. Assessment & Plan (09/03/2024 1:42 PM MOVIE OPERATOR): BP is well controlled. Previously on lisinopril, but now not on antihypertensive therapy. Assessment & Plan (01/31/2024 8:03 AM CDT): BP low. C/o dizziness. Advised to stop lisinopril. Increase fluid intake. Mixed hyperlipidemia 08/21/2019 Assessment & Plan (04/15/2025 12:42 PM CDT): Last lipid panel is well-controlled. Continue atorvastatin. Assessment & Plan (09/03/2024 1:42 PM MOVIE OPERATOR): Continue atorvastatin. Heart palpitations 08/21/2019 Diverticulosis of [...] AM CDT Office Visit [facility], [address] [address] Zandra Olmstead, ABIGAIL Follow Up (Aortic Regurgitation) [...] Info) Description 05/01/2025 9:00 AM CDT Appointment [facility] [place] [address] Zandra Olmstead PA 3 [facility], [address] [address] 05/01/2025 10:30 AM CDT [place] [address] Zandra Olmstead PA 3 [facility], [address] [address] 07/18/2025 10:15 AM CDT Office Visit [facility], [place] [address] [place] [address] Zandra Olmstead PA 3 [facility], [address] [place] [address] Health Maintenance Due Date Last Done Comments [...] Insurance MEDICARE [facility] Care Teams Upper Stitcher Relationship Specialty Start Date End Date Keagan Saldana MD [address] [place] [address] PCP - General FAMILY PRACTICE 01/30/24 Alan Medina MD [facility]. [facility] [address] [place] [address] [employer] Maker INTERVENTIONAL CARDIOLOGY 08/06/19
--- NOTE | 2025-04-28 20:28 | ED.MALEGU ---
HPI - Male Genitourinary General Chief complaint: Urogenital-Male Stated complaint: Damon Leaking Time Seen by Provider: 04/28/25 20:11 Source: patient and family Mode of arrival: ambulatory Limitations: no limitations History of Present Illness HPI Narrative: Patient is a 69-year-old male with prostatectomy last month and here with a Damon catheter in place which is dripping around the tip of the penis. Initially the for pre-catheter from the surgery was removed by the urologist. Further, the patient proceeded to have bladder spasms and UTI symptoms and came to our ER a few days ago and was given a Damon catheter. He is here tonight with dripping around the tip of the penis with urine starting today. He has a urology follow-up this week. patient on Keflex at this time. MD Complaint: other ( Urine loss around the tip of the penis around the catheter) Onset (ago): day(s) ( 1) Duration: constant and intermittent Location: penis Radiation: penis ( no pain anymore; he was having bladder spasms when they decided to put the catheter in place) Severity: mild Severity scale (1-10): 1 Quality: other ( no pain) Relieving factors: other ( catheter placement resolve the bladder spasms sensation) Exacerbating factors: none Context: indwelling catheter Associated symptoms: Reports blood in urine Related Data Allergies Allergy/AdvReac Type Severity Reaction Status Date / Time oxycodone Allergy Mild Rash Verified 04/28/25 20:29 Review of Systems Review of Systems: All systems reviewed & are unremarkable except as noted in HPI and below Constitutional: Constitutional: Reports no additional constitutional complaints Eyes: Eyes: Reports no additional eye complaints ENT: Reports system reviewed and no additional complaints, except as documented Cardiovascular: Cardiovascular: Reports no additional cardiovascular complaints Respiratory: Respiratory: Reports no additional respiratory complaints Gastrointestinal: Gastrointestinal: Reports no additional gastrointestinal complaints Genitourinary: Genitourinary: Reports no additional male genitourinary complaints Musculoskeletal: Musculoskeletal: Reports no additional musculoskeletal complaints Integumentary/Breasts: Skin/Breast: Reports system reviewed and no additional complaints, except as docu Neurologic: Reports system reviewed and no additional complaints, except as documented Psychiatric: Psychiatric: Reports no additional psychiatric complaints Endocrine: Endocrine: Reports no additional endocrine complaints Hematologic/Lymphatic: Hematologic/Lymphatic: Reports no additional hematologic/lymphatic complaints Allergic/Immunologic: Allergic/Immunologic: Reports no additional allergic/immunologic complaints PMFSH Past Medical History Medical History Anxiety Dyslipidemia Hypertension Surgical History Surgical History H/O prostatectomy Exam Const: General: healthy appearing Nutritional Appearance: well nourished Limitations: no limitations HENMT: Head: normal to inspection Ears: TM's normal bilaterally Face/Nose/Sinus: Normal external nose present Eyes: Conjunctivae: conjunctivae normal Pupils: Equal, round and reactive pupils present EOM: EOMs intact bilaterally Neck: Neck: normal visual inspection Chest: Chest palpation & inspection: normal inspection of the chest Resp: Effort & Inspection: normal respiratory effort and not labored Auscultation: clear to auscultation bilaterally and no crackles Cardio: Rate: regular rate Rhythm: regular rhythm Heart sounds: no murmurs GI: Inspection: non-distended GI Palp: Yes Soft to palpation and No Tenderness to palpation present (GI) Auscultation: normal bowel sounds : General: Yes bladder normal to palpation Male General Exam: Yes normal external exam Penis: Yes normal penis Other: Urine seen around the tip of the catheter on the penis Urinary Catheter: Urinary Catheter: patent and draining, urine clear and urine dark ( patient taking Pyridium) Back/Spine/Pelvis: Back: no CVA tenderness Skin: General skin exam: normal color Rashes: no rashes Wounds: no wounds Neuro: General: patient oriented x3, moves all extremities and no meningeal signs Extrem: General: normal to inspection Psych: Mental Status: mental status grossly normal Affect: normal affect Attitude: cooperative Course Vital Signs Vital signs: Vital Signs Temperature 36.8 C 04/28/25 20:04 Pulse Rate 70 04/28/25 20:04 Respiratory Rate 14 04/28/25 20:04 Blood Pressure 152/75 H 04/28/25 20:04 Pulse Oximetry 97 04/28/25 20:04 Oxygen Delivery Room Air 04/28/25 20:04 Temperature 36.4 C L 04/28/25 21:55 Pulse Rate 63 04/28/25 21:55 Respiratory Rate 14 04/28/25 21:55 Blood Pressure 119/76 04/28/25 21:55 Pulse Oximetry 99 04/28/25 21:55 Oxygen Delivery Room Air 04/28/25 21:55 MDM - Male Genitourinary MDM Narrative Medical decision making narrative: patient is a 69-year-old male with Damon catheter dysfunction. We will adjust the catheter and see if that resolves the problem. Resolution of the problem was appreciated. Complete Keflex. Lab Data Attestation: I reviewed the patient's lab results. Lab results narrative: UTI still slightly present but he is on Keflex treatment at this time. Labs: Lab Results 04/28/25 Range/Units 21:23 Urine Color Dark orange (Yellow) Urine Appearance Cloudy A (Clear) Urine pH 7.0 (5.0-8.0) Ur Specific [place] 1.010 (1.010-1.020) Urine Protein 2+ H (Negative) Urine Glucose (UA) Trace H (Negative) Urine Ketones Trace H (Negative) Ur Blood (Man) 2+ H (Negative) Urine Nitrate Positive H (Negative) Urine Bilirubin Negative (Negative) Urine Urobilinogen 2.0 H (0.2-1.0) mg/dL Leukocyte Esterase Rfl Negative (Negative) LOUIS/UL Urine RBC 11-20 H (0-2) /hpf Ur Squamous Epith Cells Few (Few) /hpf Urine Mucus Moderate H /lpf Discharge Plan Discharge Clinical Impression: Acute UTI Malfunction of Damon catheter Qualifiers: Encounter type: initial encounter Qualified Code(s): T83.011A - Breakdown (mechanical) of indwelling urethral catheter, initial encounter Patient Disposition: Home Condition: Stable Instructions: Damon Catheter Placement and Care (ED) Patient Language: Slovenian Prescriptions: No Action cefdinir 300 mg capsule 300 mg PO Q12H Qty: 14 0RF Follow-up/Referrals: Les,MD Keagan [Primary Care Provider] - Time of Disposition: 21:43
--- OUTSIDE RECORDS SUMMARY | 2025-04-28 20:35 | XMS_ITS | Encounter Summary ---
Author Organization [facility] Healthcare Address [address] [place] [address] Care Team Providers Care Tower Crane Operator Name Role Phone Keagan Saldana MD Primary Care Provider [phone] Mikel Villeda MD Unavailable [phone] Alan Medina MD Unavailable [phone] Wali Boyce MD Unavailable [phone] Antonio Reddy MD Unavailable [phone] Andrea Sam MD Unavailable [phone] Sony Marina MD PhD Unavailable [phone] Luther Cameron MD Unavailable [phone] Encounter Details Date Type Department Care Team (Late st Contact Info) Description 01/06/2021 Telephone [facility] [id number] [place] [address] Margo Velarde, RT Social History Tobacco Use [...] COVID: Suspected 10/10/2024 10/10/2024 10/10/2024 7:33 PM MANUFACTURING TEACHER COVID19 10/10/2024 10/10/2024 10/20/2024 3:05 AM MANUFACTURING TEACHER COVID: Recovered Comment:Added based on recent COVID infection. 10/20/2024 10/23/2024 01/18/2025 3:05 AM C DT documented as of this encounter Care Teams Tower Crane Operator Relationship Specialty Start Date End [place] [address] PCP - General Family Medicine 11/05/20 Mikel Villeda MD [address] [place] [address] Surgeon Plastic Surgery 11/23/21 Alan Medina MD [address] [place] [address] Snow Plow Operator Cardiology 11/23/21 Wali Boyce MD [address] [place] [address] Urologist Urology 11/23/21 Antonio Reddy MD [address] [place] [address] Urologist Urology 11/23/21 Andrea Sam MD [address] [place] [address] Sales And Marketing Associate Gastroenterology 11/23/21 Sony Marina MD PhD [address] [place] [id number] Radiation Oncologist Radiation Oncology 02/01/25 [place] [id number] [address] Consulting Physician Urology 02/01/25 documented as of this encounter
--- OUTSIDE RECORDS SUMMARY | 2025-04-28 20:35 | XMS_ITS | Encounter Summary ---
Author Organization [facility] Health Address [address] [place] [address] [address] Team Prov[address] Care Court Registry Officer Name Role Phone Unavailable Primary Care Provider Unavailabl e Prior Encounters Date Type Department Care Team Description 10/22/2019 Converted 13x Documents [facility] [address] [place] [phone] <No scans attached> 10/22/2019 Converted CPS Chart Documents [facility] [address] [place] [phone] <No scans attached> Plan of Treatment Not on file Procedures Procedure Name Priority Date/Time Associated Diagnosis Comments 20 MOD AMALGAM 3 SURFACE Routine 013 2:00 AM PIPE CHANGER 19 AMALGAM 3 SURFACE Routine 013 2:00 AM PIPE CHANGER 17 AMALGAM 3 SURFACE Routine 013 2:00 AM PIPE CHANGER 31 MO AMALGAM 2 SURFACE Routine 10/28/19 13 2:00 AM PIPE CHANGER 21 DO AMALGAM 2 SURFACE Routine 10/28/19 13 2:00 AM PIPE CHANGER 14 ENDODONTIC THERAPY, MOLAR TOOTH (EXCLUDING FINAL ZOROASTRIAN) Routine 10/28/2012 2:00 AM PIPE CHANGER TOPICAL APPLICATION OF FLUORIDE VARNISH Routine 10/28/2012 2:00 AM PIPE CHANGER PROPHYLAXIS - ADULT Routine 10/28/2012 2 :00 AM PIPE CHANGER COMPREHENSIVE ORAL EVALUATION - NEW OR ESTABLISHED PATIENT Routine 10/28/2012 2:00 AM PIPE CHANGER PANORAMIC RADIOGRAPHIC IMAGE Routine 10/28/2012 2:00 AM PIPE CHANGER INTRAORAL - COMPREHENSIVE SERIES OF RADIOGRAPHIC IMAGES Routine 10/28/2012 2:00 AM PIPE CHANGER INTRAORAL PHOTO Routine 10/28/2012 2:00 AM PIPE CHANGER INTRAORAL PHOTO Routine 10/28/2012 2:00 AM PIPE CHANGER INTRAORAL PHOTO Routine 10/28/2012 2:00 AM PIPE CHANGER INTRAORAL PHOTO Routine 10/28/2012 2:00 AM PIPE CHANGER Visit Diagnoses Not on file
--- OUTSIDE RECORDS SUMMARY | 2025-04-28 20:35 | XMS_ITS | Clinical Summary ---
Author Organization [facility] Address [address] [place] [address] Care Team Providers Care Propulsion Generator Repairer Name Role Phone Unavailable Primary Care Provider [...]
--- OUTSIDE RECORDS SUMMARY | 2025-04-28 20:36 | XMS_ITS | Clinical Summary ---
Author Organization [facility] Address [address] [place] [address] Care Team Providers Care Armature Bander Name Role Phone Unavailable Primary Care Provider Unavailabl e Medications testosterone (Fortesta) 10 mg/0.5 gram /actuation Gel in Metered-dose Pump Apply 4 pumps to the skin daily as directed. 180 Gram 04/28/2023 1:00 PM CDT 3 Active eszopiclone (LUNESTA) 3 mg Tablet Take 1 Tablet (3 mg) by mouth daily at bedtime. 90 Tablet 08/30/2023 2:08 PM MECHATRONICS ENGINEER 3 Active HYDROcodone-ac etaminophen (NORCO) 5-325 mg tablet Take 1-2 Tablets by mouth every 4-6 hours as needed for pain. 50 Tablet 09/02/2023 11:57 AM MECHATRONICS ENGINEER 3 Active famotidine (PEPCID) 20 mg tablet Take 1 Tablet (20 mg) by mouth daily. 90 Tablet 3 10/04/2023 12:08 PM MECHATRONICS ENGINEER 3 Active clonazePAM (KlonoPIN) 0.5 mg Tablet Take 0.5-1 tablet by mouth daily as needed for anxiety. 14 Tablet 2 01/17/2024 12:56 PM CDT 4 Active testosterone 10 mg/0.5 gram /actuation Gel in Metered-dose Pump Place 40 mg ( 4 pumps ) on the skin daily. 90 Gram 5 09/19/2024 2:51 PM MECHATRONICS ENGINEER 4 Active methylPREDNISo lone (MEDROL DOSPACK) 4 mg Tablets, Dose Pack Take as directed on package 21 Each 05/01/2024 12:01 PM CDT 4 Active fluticasone propionate (FLONASE) 50 mcg/spray [place], Suspension nasal inhaler Administer 2 sprays in [...]
--- OUTSIDE RECORDS SUMMARY | 2025-04-28 20:36 | XMS_ITS | Continuity of Care Document ---
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 Name Role Phone [facility] Unavailable Unavailable Problems [...] 2014 Condition DoD Cervical radiculopathy Active Condition [facility] Cervicalgia Active Condition [facility] Gastroesophageal reflux disease Active Condition [facility] Hypercholesterolemi a Active Condition [facility] Hypertension Active Condition [facility] Insomnia Active Condition [facility] Major depressive disorder Active Condition [facility] Neoplasm of prostate Active Condition [facility] Tinnitus Active Condition [facility] Mechanical ptosis of bilateral eyelids Active [...] include AK, SCC, BCC. Biopsy for diagnosis. [facility] Serum Prostate-specific Antigen (PSA) Elevated Active Condition After re-discus nj with Dr. Lam, will attempt trial of Levaquin x 4 wks and repeat PSA. Fu with Dr. Lam. [facility] Medications Combined list of outpatient medications from [...] EVERY EVENING ORAL ACTIVE TK ADAMES 2020 [facility] N ATORVASTATI N CA 40MG TAB TAKE ONE-HALF TABLET BY MOUTH AT BEDTIME ORAL ACTIVE VELIA VAUGHAN 2016 [facility] CLONAZEPAM (CLONAZEPAM ), 0.5MG, TABLET, ORAL, TEVA [place], 500 ea. BOTTLE Active [id number] 2023 14 Pharmac y Data Transac tion Service Facilit y CLONAZEPAM (CLONAZEPAM ), 0.5MG, TABLET, ORAL, TEVA [place], 500 ea. BOTTLE Active [id number] 2023 14 Pharmac y Data Transac tion Service Facilit y ESCITALOPRA M OXALATE 20MG TAB TAKE ONE TABLET BY MOUTH ONCE A DAY ORAL ACTIVE TK ADAMES 2020 [facility] ESCITALOPRA M OXALATE 20MG TAB TAKE ONE TABLET BY MOUTH EVERY DAY ORAL ACTIVE VELIA VAUGHAN 2016 [facility] ESZOPICLONE (eszopiclon e), 3 MG, TABLET, ORAL, RateItAll, 100 ea. BOTTLE Active [id number] 4 2023 90 Pharmac y Data Transac tion Service Facilit y ESZOPICLONE 3MG TAB TAKE ONE TABLET BY MOUTH AT BEDTIME ORAL ACTIVE RICARDO REYES 2022 [facility] N LISINOPRIL 5MG TAB TAKE ONE-HALF TABLET BY MOUTH ONCE A DAY ORAL ACTIVE TK ADAMES 2020 [facility] DIVBLAISE Albert LiSINOpril TAB TAKE BY MOUTH ACTIVE ABELARDO INTERIANO 2012 [facility] MELOXICAM 15MG TAB TAKE ONE TABLET BY MOUTH ONCE A DAY ORAL ACTIVE TK ADAMES 2020 [facility] ANDREI Albert MELOXICAM 15MG TAB TAKE ONE TABLET BY MOUTH EVERY DAY ORAL ACTIVE VELIA VAUGHAN 2016 [facility] SIMVASTATIN TAB TAKE BY MOUTH AT BEDTIME ACTIVE ABELARDO INTERIANO 2012 [facility] TAMSULOSIN HCL 0.4MG CAP TAKE 1 CAPSULE BY MOUTH EVERY EVENING ORAL ACTIVE TK ADAMES 2020 [facility] ANDREI Albert TAMSULOSIN HCL 0.4MG CAP TAKE ONE CAPSULE BY MOUTH EVERY DAY ORAL ACTIVE VELIA VAUGHAN 2016 [facility] UNLISTED [place] MED MISCELLANEO US USE FORTESTA 60MG DIRECTED EVERY DAY DIRECT ED ACTIVE VELIA VAUGHAN 2016 [facility] UNLISTED [place] MED MISCELLANEO US USE LUNESTA DIRECTED DIRECT ED ACTIVE VELIA VAUGHAN P 2016 [facility] Allergies, Adverse Reactions, Alerts Combined list of allergies from Department of Defense and Veterans Affairs facilities. It does not include entries that were removed or entered in error. Substance Category Reaction Severity Reaction type Status Date Reported Comments Source No Known Allergies Drug allergy (disorder) active 9 [facility] [place] ([facility] PERCOCET Propensity to adverse reactions to drug (finding) active 5 [facility] Immunizations Combined list of available immunizations from the Department of Defense and Veterans Affairs facilities. Immunization Series Date Given Administered By Site Reaction Lot Number CVX Code Drug Wharf Hand Status Comments Source PNEUMOCOCCAL CONJUGATE PCV20, POLYSACCHARID E [id number] CONJUGATE, ADJUVANT, PF 2022 VIRGILIO SHIPLEY RIGHT DELTO ID [id number] complet ed [facility], [...] 30 mcg/0.3 mL dose 2020 ALUL, Pfizer Meal Sharing [place] (PFR) Not Given COVID-19, mRNA, LNP-S, [...] PF, 30 mcg/0.3 mL dose 2020 PATKUS, TiGenix [place] (PFR) Not Given COVID-19, mRNA, LNP-S, [...] injectable, quadrivalent- pf 2019 Chaz miramontes Arm [id number] 150 [employer] complet ed influenza , injectabl e, quadrival ent-pf 10/25/19 Given Ambulat ory Pharmac y Influenza, injectable, quadrivalent, preservative free 1 2019 Unknown, Provider [id number] 150 [employer] (SEQ) complet ed Influenza , injectabl e, quadrival ent, preservat heavenly free DoD influenza, injectable, quadrivalent- pf 2017 zzRig ht Arm [id number] 150 [employer] complet ed influenza , injectabl e, quadrival ent-pf 07/25/18 Given Ambulat ory Pharmac y influenza, injectable, quadrivalent- pf 2017 [id number] complet ed influenza , injectabl e, quadrival ent-pf 07/25/18 Given Ambulat ory Pharmac y Influenza, injectable, quadrivalent, preservative free 1 2017 VIN DUEÑAS [id number] 150 Se[employer] (SEQ) complet ed Influenza , [...] YRS (HISTORICAL) 2016 88 complet ed [facility] TDAP 2016 115 complet ed [facility] influenza, seasonal, injectable-pf 2015 zzLef t Arm [id number] 140 Se[employer] complet ed influenza , seasonal, injectabl e-pf 07/30/16 Given Ambulat ory Pharmac y influenza, seasonal, injectable-pf 2015 [id number] complet ed influenza , seasonal, injectabl e-pf 07/30/16 Given Ambulat ory Pharmac y Influenza, seasonal, injectable, preservative free 1 2015 SID VILLAVICENCIO [id number] 140 Se[employer] (SEQ) complet ed Influenza , seasonal, injectabl e, preservat heavenly free DoD tetanus, diphtheria, acellular pertu is 2015 zzLef t Arm [id number] 115 GlaxoSmithK[employer] ne complet ed tetanus, diphtheri a, acellular pertussis 04/20/16 Given Ambulat ory Pharmac y tetanus, diphtheria, acellular pertu is 2015 [id number] 115 complet ed tetanus, diphtheri a, acellular pertussis 04/20/16 Given Ambulat ory Pharmac y tetanus toxoid, reduced diphtheria toxoid, and acellular pertu is vaccine, adsorbed 1 2015 YAZAN HIDALGO [id number] 115 [facility] ([facility]) complet ed tetanus toxoid, reduced diphtheri a toxoid, and acellular pertussis vaccine, adsorbed DoD zoster vaccine live 2015 zzLef t Arm [id number] 121 Merck & Company Inc complet ed zoster vaccine live 01/05/16 Given Ambulat ory Pharmac y zoster vaccine live 2015 [id number] complet ed zoster vaccine live 01/05/16 Given Ambulat ory Pharmac y zoster vaccine, live 1 2015 STEPHANIE FRAUSTO [id number] 121 Merck (MSD) complet ed zoster vaccine, live DoD influenza, seasonal, injectable-pf 2014 zzLef t Arm [id number] 140 CSL [employer]ring complet ed influenza , seasonal, injectabl e-pf 07/18/15 Given Ambulat ory Pharmac y influenza, seasonal, injectable-pf 2014 [id number] 140 complet ed influenza , seasonal, injectabl e-pf 07/18/15 Given Ambulat ory Pharmac y Influenza, seasonal, injectable, preservative free 1 2014 YAZAN HIDALGO [id number] 140 [employer] (CSL) complet ed Influenza , seasonal, injectabl e, preservat heavenly free DoD FLU,3 YRS (HISTORICAL) 2011 88 complet ed [facility] influenza, seasonal, injectable-pf 2010 UNK [...] free 2010 TIFFANIE WHALEN Sanofi Pasteur Inc. ([facility]) Not Given Influenza , seasonal, injectabl e, preservat heavenly free DoD anthrax vaccine 2009 [id number] [employer] complet ed anthrax vaccine 12/11/09 Given Ambulat ory Pharmac y anthrax vaccine 2009 [id number] 24 [employer] complet ed anthrax vaccine 12/11/09 Given Ambulat ory Pharmac y anthrax vaccine 3 2009 [id number] 24 [employer] [place] (MIP) complet ed anthrax vaccine DoD Novel influenza-H1N 1-09, injectable 2008 [id number] 1 127 complet ed Novel influenza -G9U4-41, injectabl e 09/04/09 Given Ambulat ory Pharmac y Novel influenza-H1N 1-09, injectable 2008 [id number] 1 127 complet ed Novel influenza -L2P5-51, injectabl e 09/04/09 Given Ambulat ory Pharmac y Novel influenza-H1N 1-09, injectable 0 2008 [id number] 1 127 (AG) complet ed Novel influenza -O2D5-86, injectabl e DoD anthrax vaccine 2008 [id number] 24 [employer] complet ed anthrax vaccine 06/12/09 Given Ambulat ory Pharmac y influenza virus vaccine,split 2008 [id number] 1A 15 [employer]ring complet ed influenza virus vaccine,s plit 06/12/09 Given Ambulat ory Pharmac y influenza virus vaccine,split 2008 [id number] 15 C[employer] Behring complet ed influenza virus vaccine,s plit 06/12/09 Given Ambulat ory Pharmac y influenza virus vaccine, split virus (incl. purified surface antigen)-reti red CODE 0 2008 [id number] 15 [employer] (CS) complet ed influenza virus vaccine, split virus (incl. purified surface antigen)- retired CODE DoD anthrax vaccine 2 2008 [id number] [employer] [place] ([facility]) complet ed anthrax vaccine DoD anthrax vaccine 2008 [id number] [employer] complet ed anthrax vaccine 01/09/09 Given Ambulat ory Pharmac y anthrax vaccine 2008 [id number] [employer] complet ed anthrax vaccine 01/09/09 Given Ambulat ory Pharmac y anthrax vaccine 1 2008 [id number] 24 [employer] [place] ([facility]) complet ed anthrax vaccine DoD typhoid Vi capsular polysaccharid e vac 2008 B1334-[address] [facility] complet ed typhoid Vi capsular polysacch aride vac 10/24/08 Given Ambulat ory Pharmac y yellow fever vaccine 2008 [id number] [employer] complet ed yellow fever vaccine 10/24/08 Given Ambulat ory Pharmac y typhoid Vi capsular polysaccharid e vac 2008 [id number] [facility] complet ed typhoid Vi capsular polysacch aride vac 10/24/08 Given Ambulat ory Pharmac y yellow fever vaccine 2008 [id number] [employer] complet ed yellow fever vaccine 10/24/08 Given Ambulat ory Pharmac y yellow fever vaccine 0 2008 [id number] 37 [employer] [place] ([facility]) complet ed yellow fever vaccine DoD typhoid Vi capsular polysaccharid e vaccine 2 2008 [id number] 101 [facility] ([facility]) complet ed typhoid Vi capsular polysacch aride vaccine DoD influenza virus vaccine,split 2007 [id number] 15 GlaxoSmithKli ne complet ed influenza virus vaccine,s plit 09/12/08 Given Ambulat ory Pharmac y poliovirus vaccine, live, oral 2007 UNK 02 [employer] Inc comple t ed polioviru s vaccine, live, oral 09/12/08 Given Ambulat ory Pharmac y poliovirus vaccine, live, oral 2007 UNK 02 complet ed polioviru s vaccine, live, oral 09/12/08 Given Ambulat ory Pharmac y trivalent poliovirus vaccine, live, oral 0 2007 UNK 02 [employer].com[employer] Inc. (MED) complet ed trivalent polioviru s [...] DoD influenza virus vaccine, whole virus 2005 [id number] 16 Unknown complet ed influenza virus vaccine, whole virus 09/13/06 Given Ambulat ory Pharmac y influenza virus vaccine, whole virus 2005 [id number] 16 Unknown complet ed influenza virus vaccine, whole virus 09/13/06 Given Ambulat ory Pharmac y influenza virus vaccine, whole virus 3 2005 [id number] 16 Other (OTH) complet ed influenza virus [...] hepatitis B vaccine 3 2005 UNK 104 ([facility]) complet ed hepatitis A and hepatitis B [...] B vaccine DoD vaccinia (smallpox) vaccine [id number] [facility] complet ed vaccinia (smallpox ) vaccine 12/06/02 Given Ambulat ory Pharmac y vaccinia (smallpox) vaccine 2002 [id number] 75 complet ed vaccinia (smallpox ) vaccine 12/06/02 Given Ambulat ory Pharmac y vaccinia (smallpox) vaccine 2 2002 [id number] 75 [facility] ([place]) complet ed vaccinia (smallpox ) vaccine DoD vaccinia (smallpox) vaccine [id number] [facility] complet ed vaccinia (smallpox ) vaccine 11/30/02 Given Ambulat ory Pharmac y vaccinia (smallpox) vaccine [id number] [facility] complet ed vaccinia (smallpox ) vaccine 11/30/02 Given Ambulat ory Pharmac y vaccinia (smallpox) vaccine 1 2002 [id number] [facility] complet ed vaccinia (smallpox ) vaccine DoD influenza virus vaccine, whole virus 2001 [id number] 16 Unknown complet ed influenza virus vaccine, whole virus 07/12/02 Given Ambulat ory Pharmac y influenza virus vaccine, whole virus 1 2001 [id number] 16 Other (OTH) complet ed influenza virus [...] ADM Date DC Date Status Disposition Source [facility](Ur ology Cl Be) OUTPATIENT [id number] High PSA CURRY NORTON Christiane 10/11 Released w/o Limitations [facility]( Urology Cl Be) [facility](Or tho General Cl FB) OUTPATIENT [id number] Possibl e Dupuytr en's contrac tion HELENE COYLE 10/20 Released w/o Limitations [facility]( Ortho General Cl FB) [facility](De rmatology Clinic [place]) OUTPATIENT [id number] Skin lesion forearm VICTORIANO DE LA CRUZ 11/09 Released w/o Limitations [facility]( Dermato logy Clinic [facility]) [facility](Ca rdiology Clinic [place]) OUTPATIENT [id number] Palpita tions GARZABERTIN 11/11 Released w/o Limitations [facility]( [facility]iol [facility]gy [facility] [place] [facility]) [facility](Or thopedic Clinic [facility]) OUTPATIENT [id number] SARAH BOATENG 12/26 Released w/o Limitations [facility]( Orthope dic Clinic [facility]) [facility](Or thopedic Clinic [facility]) OUTPATIENT [id number] pre-op appt. dos january 09 ASRAH BOATENG 02/06 Released w/o Limitations [facility]( Orthope dic Clinic [place]) [facility](Ph ysical Therapy (Techs)) OUTPATIENT [id number] BHARTI Patel 02/06 Released w/o Limitations [facility]( Physica l Therapy (Techs) ) [facility](Or thopedic Clinic [facility]) OUTPATIENT [id number] POP DOS 9May07 SARAH BOATENG 02/15 Released w/o Limitations [facility]( Orthope dic Clinic [facility]) [facility](Ph ysical Therapy [facility]) OUTPATIENT [id number] ZEINAB OSUNA 02/17 Released w/o Limitations [facility]( Physica l Therapy [facility]) [facility](Or thopedic Clinic [facility]) OUTPATIENT [id number] F/U scope SARAH BOATENG 04/24 Released w/o Limitations [facility]( Orthope dic Clinic [facility]) [facility](Ne urology Clinic [facility]) OUTPATIENT [id number] AUGIE TAVAREZ 05/03 Released w/o Limitations [facility]( Neurolo gy Clinic [place]) [facility](Or thopedic Clinic [facility]) OUTPATIENT [id number] SARAH BOATENG 06/13 Released w/o Limitations [facility]( Orthope dic Clinic [facility]) [facility](Ca rdiology [facility] [place]) OUTPATIENT [id number] Bicuspi d aortic valve and mild aortic regurgi GABRIELA Williamson 11/07 Released w/o Limitations [facility]( [facility]iol [facility]gy [facility] [place]) [facility](Op hthalmolo gy Oculoplas tics [place]) OUTPATIENT [id number] Droppin g eye lid FARZANEH JACOB 11/10 Released w/o Limitations [facility]( Ophthal mology Oculopl astics [place]) [facility](De rmatology [facility] [place]) OUTPATIENT [id number] Small lesion back area rule out basal versus squamou s cells KONG FITZPATRICK 11/17 Released w/o Limitations [facility]( [facility]ato [facility]y [facility] [place]) [facility](Or tho Hand Be) OUTPATIENT [id number] Bilater al Dupuytr en's contrac RUSS Kelley 11/30 Released w/o Limitations [facility]( Ortho Hand Be) [facility](Ur ology Cl Be) OUTPATIENT [id number] Persist ent PSA high level CAIN WHALEN W Released w/o Limitations [facility]( Urology Cl Be) [facility](Ur ology Cl Be) TELE CONSULT [id number] lab results CAIN WHALEN W 12/04 [facility]( Urology Cl Be) [facility](Ca rdiology Clinic [place]) TELE CONSULT [id number] Lab results GABRIELA PAEZ 12/25 [facility]( [facility] [place]) [facility](Or thopedic Clinic [facility] ) OUTPATIENT [id number] Medial and lateral meniscu s tear ROBERT NAVA 12/25 Released w/o Limitations [facility]( Orthope dic Clinic [facility]) [facility](Op hthalmolo gy Oculoplas tics [place]) OUTPATIENT [id number] fu appt FARZANEH JACOB 01/01 Released w/o Limitations [facility]( Ophthal mology Oculopl astics [place]) [facility](Or thopedic Clinic [place] ) OUTPATIENT [id number] right knee RORO CARTER 01/14 Released with Work/Duty Limitations [facility]( Orthope dic Clinic [facility]) [facility](Ca rdiology [facility] [place]) TELE CONSULT [id number] Pt states he needs annual echo for [employer] GABRIELA PAEZ 03/12 [facility]( [facility] [place]) [facility](Ur ology Cl Be) TELE CONSULT [id number] CAIN WHALEN W 03/28 [facility]( Urology Cl Be) [facility](Ca [facility]diology [facility] [place]) TELE CONSULT [id number] F/U of lab results GABRIELA PAEZ 04/09 [facility]( [facility] [place]) [facility](Ca rdiology [facility]) TELE CONSULT [id number] GABRIELA PAEZ 04/18 [facility]( [facility] [place]) [facility](Ca rdiology [facility]) OUTPATIENT [id number] 52 yo AD [employer] male with a h/o bicuspi d aortic valve MORGAN TEIXEIRA I 05/07 Released w/o Limitations [facility]( [facility] [place]) [facility](Ur ology Cl Be) OUTPATIENT [id number] sat pbx sedatio n CURRY NORTON 05/09 Released w/o Limitations [facility]( Urology Cl Be) [facility](Ur ology Cl Be) OUTPATIENT [id number] CURRY NORTON 05/09 Released w/o Limitations [facility]( Urology Cl Be) [facility](Ca rdiology [facility]) OUTPATIENT [id number] F/U ON 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 GABRIELA PAEZ 05/21 Released w/o Limitations [facility]( [facility] [place]) [facility](Ca [facility]diology [facility] [place]) OUTPATIENT [id number] F/U GABRIELA PAEZ 06/18 Released w/o Limitations [facility]( [facility] [place]) [facility](Ca rdiology [facility]) OUTPATIENT [id number] GABRIELA PAEZ 06/18 Released w/o Limitations [facility]( [facility] [place]) [facility](Pa in Mgmt Clinic [place]) OUTPATIENT [id number] cervica l spondyl osis with radicul opathy JOSE RUVALCABA 07/01 Released w/o Limitations [facility]( [facility] [place]) [facility](Pa in Mgmt [facility] [place]) TELE CONSULT [id number] F/U - ABEBEI ALEXX JORDAN 07/02 [facility]( [facility] [place]) [facility](Ne urosurg Clinic [place]) OUTPATIENT [id number] 52y/o 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 Seen b KONG STATON 07/09 Released with Work/Duty Limitations [facility]( Neurosu rg [facility] [place] [facility]) [facility](Pa in Mgmt [facility] [place]) OUTPATIENT [id number] C-[place] JOSE RUVALCABA 07/22 Released w/o Limitations [facility]( [facility] [place]) [facility](Pa in Mgmt [facility] [place]) TELE CONSULT [id number] F/U - C-[place] JULIAN ALEXX J 07/23 [facility]( [facility] [place]) [facility](Ur ology Cl Be) OUTPATIENT [id number] fu per DANIEL Fajardo 08/02 Released w/o Limitations [facility]( Urology Cl Be) [facility](ZZ Neurology Cl WR) OUTPATIENT [id number] CERVICA L RADICUL OPATHY WENDY HALL 08/12 Released w/o Limitations [facility]( ZZNeuro logy Cl WR) [facility](Ur ology Cl Be) OUTPATIENT [id number] SAT BX w/ SED., need Pre ABX for Valve DANIEL LAM 09/16 Released w/o Limitations [facility]( Urology Cl [facility]) [facility](Ur ology Cl Be) TELE CONSULT [id number] Prostat e biospy results DANIEL LAM 09/30 [facility]( Urology Cl [facility]) [facility](Op hthalmolo gy Comprehen sive [place]) OUTPATIENT [id number] JOSE ROBERTS 10/24 Released w/o Limitations [facility]( Ophthal mology Compreh ensive [place]) [facility](Op tometry [facility] [place]) OUTPATIENT [id number] routine TK WESTON 10/31 Released w/o Limitations [facility]( Optomet ry [facility] [place]) [facility](Ne urosurg Clinic [place]) OUTPATIENT [id number] F/U KONG STATON 11/05 Released w/o Limitations [facility]( [facility]su rg [facility] [place]) [facility](Ca rdiology [facility] [place]) OUTPATIENT [id number] follow- up JOSE CARTER 11/05 Released w/o Limitations [facility]( [facility]gy [facility] [place]) [facility](Ca rdiac Procedure [place]) OUTPATIENT [id number] Cardiac Cath MORGAN TEIXEIRA I 11/13 Released w/o Limitations [facility]( Cardiac Procedu re [place]) [facility](Op tometry [facility] [place]) OUTPATIENT [id number] move fr 1100 to 1415 ELIANA ARTHUR M 12/23 Released w/o Limitations [facility]( [facility] [place]) [facility](Op hthalmolo gy Ped [facility] [place]) OUTPATIENT [id number] new appt PADMINI KING 02/17 Released w/o Limitations [facility]( [facility]hthal [facility]ology Ped [facility] [place]) [facility](De rmatology [facility] [place]) OUTPATIENT [id number] WHO HAS A FAIR SKIN AND HAS SEVERAL EATONSARAH 07/30 Released w/o Limitations [facility]( D[facility]ato [facility]y [facility] [place]) [facility](De rmatology [facility] [place]) TELE CONSULT [id number] PATH RESULTS PADMINI NEGRO 08/06 [facility]( [facility]ato [facility]y [facility] [place]) [facility](Au diology Svc [facility]) OUTPATIENT [id number] 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 per pt SRI CARRASCO 08/12 Released w/o Limitations [facility]( Audiolo gy Svc BE) [facility](Ca rdiology [facility] [place]) OUTPATIENT [id number] follow- up KONG GIORDANO 08/12 Released w/o Limitations [facility]( [facility]gy [facility] [place]) [facility](Op hth Neur Cl BE) OUTPATIENT [id number] New appt MACEY OPPE 09/19 Released w/o Limitations [facility]( Ophth Neur Cl BE) [facility](Ot olaryngol ogy Clinic [place]) OUTPATIENT [id number] appt in PSYCHIATRICS dropped from DEMETRIO MEDRANO 09/23 Released w/o Limitations [facility]( [facility]olary [facility]ology [facility] [place]) [facility](Op hthalmolo gy Comprehen sive [place]) OUTPATIENT [id number] per BURTON Pelaez 09/30 Released w/o Limitations [facility]( Ophthal mology Compreh ensive [place]) [facility](Ca rdiology [facility] [place]) TELE CONSULT [id number] Test Results JOSE CARTER 10/16 [facility]( [facility] [place]) [facility](Ur ology Cl Be) OUTPATIENT [id number] ELEVATE D PSA HARRIET, SCOTT GRUM 10/29 Released w/o Limitations [facility]( Urology Cl Be) [facility](Op hthalmolo gy Comprehen sive [place]) OUTPATIENT [id number] 242 sta fast vf and fu BURTON Miller 10/31 Released w/o Limitations [facility]( Ophthal mology Compreh ensive [place]) [facility](Op hth Neur Cl BE) OUTPATIENT [id number] fu appt- MACEY POEP 10/31 Released w/o Limitations [facility]( Ophth Neur Cl BE) [facility](Ot olaryngol ogy Clinic [place]) OUTPATIENT [id number] preop resid/g rant Novo/t DEMETRIO Ramirez 11/06 Released w/o Limitations [facility]( [facility]ary [facility]ology [facility] [place]) [facility](AP U Pre-Scree n Clinic [place]) OUTPATIENT [id number] BBF5 MARQUIS MO 11/06 Released w/o Limitations [facility]( APU Pre-Scr een [facility] [place]) [facility](Ot olaryngol ogy Clinic [place]) OUTPATIENT [id number] pop resid/s orensen Novo/t DEMETRIO Ramirez 11/24 Released w/o Limitations [facility]( [facility]ary [facility]ology [facility] [place]) [facility](Op hthalmolo gy Comprehen sive [place]) OUTPATIENT [id number] fu appt vf JOSE ROBERTS 12/08 Released w/o Limitations [facility]( Ophthal mology Compreh ensive [place]) [facility](Ur ology Cl Be) TELE CONSULT [id number] left one message at work about psa, good level but % free low, recheck 6 months SCOTT LARIOS OMERO 12/16 [facility]( Urology Cl Be) [facility](Ur ology Cl Be) TELE CONSULT [id number] lab results SCOTT LARIOS GABYJESSICA 12/19 [facility]( Urology Cl Be) [facility](Ca rdiology [facility] [place]) TELE CONSULT [id number] Rx refill TK MACDONALD 02/09 [facility]( [facility] [place](Op hthalmolo gy Comprehen sive [place]) OUTPATIENT [id number] and HELENE ARTEAGA 05/28 Released w/o Limitations [facility]( Ophthal mology Compreh ensive [place]) [facility](Ph ysical Therapy [place]) OUTPATIENT [id number] MENDEZ DAVIS 06/15 Released w/o Limitations [facility]( Physica l Therapy [facility]) [facility](Ph ysical Therapy [place]) OUTPATIENT [id number] TONI JORDAN 06/18 Released with Work/Duty Limitations [facility]( Physica l Therapy [facility]) [facility](Ph ysical Therapy [place]) OUTPATIENT [id number] CHASIDY CESPEDES 06/22 Released w/o Limitations [facility]( Physica l Therapy [place]) [facility](Ph ysical Therapy [place]) OUTPATIENT [id number] CHASIDY CESPEDES 06/25 Released w/o Limitations [facility]( Physica l Therapy Dheer[facility]) [facility](Ph ysical Therapy [place]) OUTPATIENT [id number] TONI JORDAN 06/29 Released with Work/Duty Limitations [facility]( Physica l Therapy [facility]) [facility](Ph ysical Therapy [place]) OUTPATIENT [id number] CHASIDY CESPEDES 07/02 Released w/o Limitations [facility]( Physica l Therapy [place]) [facility](Ph ysical Therapy [facility]) OUTPATIENT [id number] MENDEZ DAVIS 07/16 Released w/o Limitations [facility]( Physica l Therapy [facility]) [facility](Ph ysical Therapy [facility]) OUTPATIENT [id number] LIBBYMARA SPEARSMINE 07/20 Released w/o Limitations [facility]( Physica l Therapy [facility]) [facility](Ph ysical Therapy [facility]heeraj) OUTPATIENT [id number] TK ALAMO Cedric 07/27 Released w/o Limitations [facility]( Physica l Therapy [facility]) [facility](Ur ology Cl Be) OUTPATIENT [id number] follow up BANDAR LARIOSY GRUM 08/03 Released w/o Limitations [facility]( Urology Cl Be) [facility](Nc rdiology [facility] [place]) TELE CONSULT [id number] Rx refill MAEGAN SÁNCHEZ 09/08 [facility]( [facility] [place]) [facility](Ur ology Cl Be) TELE CONSULT [id number] Request call back regardi ng elevate d psa and enlarge d prostat e. SCOTT LARIOS GRUM 09/16 [facility]( Urology Cl Be) [facility](Ur ology Cl Be) OUTPATIENT [id number] elevate d psa/enl arged prostat e LANG DELAROSA O 09/17 Released w/o Limitations [facility]( Urology Cl Be) [facility](Ur ology Cl Be) TELE CONSULT [id number] Needs informa tion over prostat e NERI NAIK V 09/17 Referred for Appointment [facility]( Urology Cl Be) [facility](Ph ysical Therapy Dheeraj) OUTPATIENT [id number] MENDEZ Thompson 09/23 Released w/o Limitations [facility]( Physica l Therapy Dheeraj) [facility] [place]) OUTPATIENT [id number] F/U APPT MAEGAN SÁNCHEZ 09/30 Released w/o Limitations [facility]( [facility] [place]) [facility]ology [facility] [place]) OUTPATIENT [id number] FAUSTINO BENOIT 10/12 Released w/o Limitations [facility]( [facility] [place]) [facility]) OUTPATIENT [id number] SPORTS MEDICIN E - RIGHT SHOULDE R IMPINGE MENT ARON RAMON 10/23 Released w/o Limitations [facility]( QY12Nal rts Med Prim Care Cl FB) [facility] Blue [facility]) TELE CONSULT [id number] triage MARY STEIN 01/25 [facility]( Family Practic e Blue FB) [facility] Silver Cl [facility]) OUTPATIENT [id number] sinus issue/h HELENE Armenta 01/25 Released w/o Limitations [facility]( Family Practic e Silver Cl FB) [facility](Ur ology Cl FB) TELE CONSULT [id number] Pt request ing PSA labs to be entered at [facility]. Pt has follow appt 05 mar 2011 SCOTT LARIOS 02/10 [facility]( Urology Cl FB) [facility](Ur ology Cl FB) OUTPATIENT [id number] follow up SCOTT LARIOS 03/05 Released w/o Limitations [facility]( Urology Cl FB) [facility](Ca rdiology [facility] [place]) TELE CONSULT [id number] Rx refill MAEGAN SÁNCHEZ 04/30 [facility]( [facility]iol [facility]gy [facility] [place]( 12Sports Med Prim Care Cl FB) OUTPATIENT [id number] right shoulde r impinge ment RICARDO SANTILLAN 07/05 Released w/o Limitations [facility]( LZ76Nys rts Med Prim Care Cl FB) [facility](Op tometry Cl FB) OUTPATIENT [id number] eye exam BERTHA PERALTA 07/28 Released w/o Limitations [facility]( Optomet ry Cl FB) [facility](Dc rmatology Clinic [place]) OUTPATIENT [id number] VICTORIANO DESHPANDE 08/03 Released w/o Limitations [facility]( D[facility]ato [facility]y [facility] [place]) [facility](Dc rmatology [facility]) TELE CONSULT [id number] VICTORIANO DEHSPANDE 08/12 [facility]( [facility]y [facility] [place]) [facility](Op tometry Cl FB) OUTPATIENT [id number] BERTHA PERALTA 08/23 Released w/o Limitations [facility]( Optomet ry Cl FB) [facility](Or thopedics Hand Cl FB) OUTPATIENT [id number] MICHAEL PINZON L HAND TARIK LT, KONG Rodriguez 09/01 Released w/o Limitations [facility]( Orthope dics Hand Cl [facility]) [facility](Ca rdiolog Cl FB) OUTPATIENT [id number] FARZANEH CASTRO 09/06 Released w/o Limitations [facility]( Cardiol og Cl FB) [facility](Ca rdiolog Cl FB) OUTPATIENT [id number] FRANCES PALMER 09/06 Released w/o Limitations [facility]( Cardiol og Cl FB) [facility](Ca rdiolog Cl FB) OUTPATIENT [id number] GXT CURTIS DUPONT 09/22 Released w/o Limitations [facility]( Cardiol og Cl FB) [facility](Op hth Compre FB) OUTPATIENT [id number] EYELIDS ; LACRIMA L SAC, DUCT, GLAND WENDY RAMIREZ 09/23 Released w/o Limitations [facility]( Ophth Compre FB) [facility](Op hthalmolo gy Oculoplas tics [place]) OUTPATIENT [id number] Per JESSENIA Morrissey 10/26 Released w/o Limitations [facility]( Ophthal mology Oculopl astics [place]) [facility](Or thopedics Hand Cl [facility]) OUTPATIENT [id number] LT HAND INJURY, REF BY AGNES JEFFRIES 11/01 Released w/o Limitations [facility]( Orthope dics Hand Cl [facility]) [facility](Ca rdiolog Cl FB) OUTPATIENT [id number] f/u FARZANEH CASTRO 11/02 Released w/o Limitations [facility]( Cardiol og Cl FB) [facility](Ur ology Cl FB) TELE CONSULT [id number] Pt req refill for Alfuzos in 10mg will lemon picker@ [place] ..pt #[phone] SCOTT LARIOS 11/12 [facility]( Urology Cl FB) [facility](Fa jeanette Practice Gold Cl FB) OUTPATIENT [id number] lower pain LEON CISSE 11/18 Released w/o Limitations [facility]( Family Practic e Gold Cl FB) [facility](Fa jeanette Practice Gold Cl [facility]) TELE CONSULT [id number] results LEON CISSE 11/18 [facility]( Family Practic e Gold Cl FB) [facility](Fa jeanette Practice Blue [facility]) OUTPATIENT [id number] TORIE Villegas 11/18 Released w/o Limitations [facility]( Family Practic e Blue FB) [facility](Fa jeanette Practice Red FB) OUTPATIENT [id number] f/u epididy bola ESPINOSA-P DANDRE CHAPA 11/20 Released w/o Limitations [facility]( Family Practic e Red FB) [facility](Op hthalmolo gy Mandaen jennifer [place]) TELE CONSULT [id number] TK MANDUJANO 11/25 [facility]( Ophthal mology Compreh ensive [place]) [facility](Ca rdiolog Cl FB) OUTPATIENT [id number] Holter Monitor PIOTR MENDEZ 12/14 Released w/o Limitations [facility]( Cardiol og Cl FB) [facility](Or thopedics Hand Cl [facility]) OUTPATIENT [id number] Xiaflex injecti on/dariu AGNES Herrera 01/18 Released w/o Limitations [facility]( Orthope dics Hand Cl [facility]) [facility](Or thopedics Hand Cl [facility]) OUTPATIENT [id number] f/u xiaflex injecti on/depu AGNES Herrera 01/19 Released w/o Limitations [facility]( Orthope dics Hand Cl [facility]) [facility](Oc cup Therap FB) OUTPATIENT [id number] dupuytr TK Graf 01/19 Released w/o Limitations [facility]( Occup Therap FB) [facility](Op tometry Cl FB) OUTPATIENT [id number] vf/phot os BERTHA PERALTA 03/02 Released w/o Limitations [facility]( Optomet ry Cl FB) [facility](Or thopedics Hand Cl FB) OUTPATIENT [id number] F/U LT HAND AGNES BYRD 04/06 Released w/o Limitations [facility]( Orthope dics Hand Cl FB) [facility](Ca rdiolog Cl FB) TELE CONSULT [id number] julieth caputo FARZANEH CASTRO 04/27 [facility]( Cardiol og Cl FB) [facility](AM H M[facility] [place]) OUTPATIENT [id number] persist ent cough ADIEL JACKSON 05/20 Immediate Referral [facility]( AMH [facility] [place]) [facility] [place]) OUTPATIENT [id number] perscri ptionsroberta for special ty ОЛЬГА HUMPHRIES 06/03 Released w/o Limitations [facility]( [facility] [place]) [facility](AM H [facility] [place]) TELE CONSULT [id number] Notes Entered by: RUSS MARS 16 Jun 2015 1438 ------- ------- ------- ------- -- Referra l ОЛЬГА Mistry 06/16 [facility]( AMH [facility] [place]) [facility](AM H [facility] [place]) OUTPATIENT [id number] f/u appt from all entered referra ceci and tori arndt current medicat ions ОЛЬГА HUMPHRIES 06/20 Released w/o Limitations [facility]( AMH M[facility] [place]) [facility](IB BH CL [facility]) OUTPATIENT [id number] RAVEN Brice 06/24 Released w/o Limitations [facility]( IB BH CL Ra) [facility](Ur ol Prostate Center Be) OUTPATIENT [id number] BPH GOPAL PUCKETT 07/08 Released w/o Limitations [facility]( Urol Prostat e Center Be) [facility](Ca rdiology [facility] [place]) OUTPATIENT [id number] BICUSPI D AORTIC VALVE MAEGAN SÁNCHEZ 07/10 Released w/o Limitations [facility](De rmatology Clinic [place]) OUTPATIENT [id number] skin evaluat ion SHEEBA TRAN 07/22 Released w/o Limitations [facility]( D[facility]ato logy [facility] [place]) [facility](Ur ol Prostate Center Be) TELE CONSULT [id number] Notes Entered by: Law KAM 22 Jul 2015 0956 ------- ------- ------- ------- -- Pls call about PSA results GOPAL PUCKETT 07/22 [facility]( Urol Prostat e Center Be) [facility](Ne urosurg Clinic [place]) OUTPATIENT [id number] CERVICA L RADICUL OPATHY C8 (C7-T1) TK LEO 07/30 Released w/o Limitations [facility]( Neurosu rg [facility] [place]) [facility](Ur Prostate Center ) TELE CONSULT [id number] Notes Entered by: Law KAM 04 Aug 2015 1505 ------- ------- ------- ------- -- Pls call about labs GOPAL PUCKETT 08/04 [facility]( Urol Prostat e Center Be) [facility](Fa jeanette Practice [facility]) OUTPATIENT [id number] f/u r knee pain LASHAUN MIN H 08/07 Released w/o Limitations [facility]( Family Practic e [facility]) [facility](Op tometry [facility] [place]) OUTPATIENT [id number] eye exam DICK LAZCANO 08/19 Released w/o Limitations [facility]( Optomet ry [facility] [place]) [facility](Ne urosurg Clinic [place]) OUTPATIENT [id number] Per TK Lua 08/20 Released w/o Limitations [facility]( Neurosu rg [facility] [place]) [facility](Te le-Neuros urg Be) OUTPATIENT [id number] PT VISHAL Cohen 08/20 Released w/o Limitations [facility]( Tele-Ne urosurg Be) [facility](Pa in Mgmt Clinic [place]) OUTPATIENT [id number] Cervica l KOSTAS per HELENE Ann 08/21 Released w/o Limitations [facility]( Pain Mgmt [facility] [place]) [facility](Fa jeanette Practice [facility]) OUTPATIENT [id number] rx renewal (per pt req) EUGENIOSHAYNA MIN H 09/23 Released w/o Limitations [facility]( Family Practic e [facility]) [facility](Fa jeanette Practice [facility]) OUTPATIENT [id number] f/u LILLIAN OLIVIA V 10/02 Released w/o Limitations [facility]( Family Practic e [facility] FX) [facility](Ne urosurg Clinic [place]) OUTPATIENT [id number] F/up TK LEO Tony 10/08 Released w/o Limitations [facility]( Neurosu rg [facility] [place]) [facility](Po diatry Clinic [place]) OUTPATIENT [id number] Pain in right ankle and joints of right foot TABITHAGISELLA 10/09 Released w/o Limitations [facility]( Podiatr y [facility] [place]) [facility](Or thotics Cl BE) OUTPATIENT [id number] Notes Entered by: QUINTON ALARCON 09 Oct 2015 1029 ------- ------- ------- ------- -- custom orthoti cs GISELLA SANTILLAN 10/09 Released w/o Limitations [facility]( Orthoti cs Cl BE) [facility](So cial Work Adult [place]) OUTPATIENT [id number] initial LANCE YAP 10/10 Released w/o Limitations [facility]( Social Work [facility] [place] ) [facility](Fa jeanette Practice [facility]) TELE CONSULT [id number] Notes Entered by: Christiane QUESADA 17 Oct 2015 0948 ------- ------- ------- ------- -- Relay Health Message LILLIAN OLIVIA V 10/17 [facility]( Family Practic e [facility]) [facility](Op tometry [facility] [place]) OUTPATIENT [id number] HVF and IOP Check per LCDICK Wilder 11/06 Released w/o Limitations [facility]( Optomet ry [facility] [place]) [facility](Sp ts Med Prim Care Cl [facility]) OUTPATIENT [id number] Pain in right knee ASHLYN RODRÍGUEZ P 11/11 Released w/o Limitations [facility]( Spts Med Prim Care Cl FB) [facility](Fa jeanette Practice [place] [facility]) OUTPATIENT [id number] CLINT Reilly 11/28 Released w/o Limitations [facility]( Family Practic e [place]) [facility](Ur ol Prostate Center Be) TELE CONSULT [id number] Notes Entered by: YORDAN PUCKETT 02 Dec 2015 1709 ------- ------- ------- ------- -- Testost ershay replace ment GOPAL PUCKETT 12/01 [facility]( Urol Prostat e Center [facility]) [facility](So cial Work [facility] [place]) OUTPATIENT [id number] f/u LANCE YAP 12/08 Released w/o Limitations [facility]( Social Work [facility] [place] ) [facility](Op tometry Clinic [place]) OUTPATIENT [id number] HVF 24-2 OU W/ EYELID TAPING PER DICK WILDER 12/16 Released w/o Limitations [facility]( Optomet ry [facility] [place]) [facility](Ph ysical Therapy Cl Fx) OUTPATIENT [id number] Pain in right knee LIZZETTE BAIN E 12/21 Released w/o Limitations [facility]( Physica l Therapy Cl [facility]x) [facility](Ca rdiology Clinic [place]) OUTPATIENT [id number] follow- up TK RIVERA 12/24 Released w/o Limitations [facility]( Cardiol ogy [facility] [place]) [facility](Im munizatio n [place]) OUTPATIENT [id number] Notes Entered by: VINEET MILAN 05 Jan 2016 1024 ------- ------- ------- ------- -- yanick FRAUSTO SI 01/04 Released w/o Limitations [facility]( Immuniz ation [place] ) [facility](Ur ol Prostate Center Be) OUTPATIENT [id number] cyst AUGUSTA HENDERSON 01/07 Released w/o Limitations [facility]( Urol Prostat e Center Be) [facility](Fa jeanette Practice [place] [facility]) OUTPATIENT [id number] flu symptom s OLIVIA, LILLIAN V 01/13 Released w/o Limitations [facility]( Family Practic e [facility]) [facility](Fa jeanette Practice [place] [facility]) OUTPATIENT [id number] cough OLIVIA, LILLIAN V 01/15 Released w/o Limitations [facility]( Family Practic e [facility]) [facility](Fa jeanette Practice [place] [facility]) OUTPATIENT [id number] Chest congest ion MIN WILKS H 01/16 Released w/o Limitations [facility]( Family Practic e [place]) [facility](Fa jeanette Practice [place]) OUTPATIENT [id number] flu/ loss sense of taste and smell MARIVEL FUNG S 01/21 Released w/o Limitations [facility]( Family Practic e [place]) [facility](Fa jeanette Practice [place] [facility]) OUTPATIENT [id number] poss flu OLIVIA, LILLIAN V 01/29 Released w/o Limitations [facility]( Family Practic e [place] [facility]) [facility] [place]) OUTPATIENT [id number] Dermato chalasi s of right upper eyelid BENJI AGUIRRE 01/29 Released w/o Limitations [facility]( Ophthal mology Compreh ensive [place]) [facility](Ur ol Prostate Center ) OUTPATIENT [id number] 1 month f/u AUGUSTA HENDERSON F 02/02 Released w/o Limitations [facility]( Urol Prostat e Center Be) [facility](Op hthalmolo gy Oculoplas tics [place]) OUTPATIENT [id number] DERMATO CHALASI S KOLBY LOZADA 02/11 Released w/o Limitations [facility]( Ophthal mology Oculopl astics [place]) [facility](Ca rdiology Clinic [place]) TELE CONSULT [id number] TK HAMLIN 03/08 [facility]( Cardiol ogy [facility] [place]) [facility](Fa jeanette Practice [facility]) OUTPATIENT [id number] anxiety OLIVIA, LILLIAN V 03/10 Released w/o Limitations [facility]( Family Practic e [place] [facility]) [facility](Ot olaryngol ogy Clinic [place]) OUTPATIENT [id number] Anosmia TK QUINONES Tony 03/23 Released w/o Limitations [facility]( Otolary ngology [facility] [place]) [facility]) TELE CONSULT [id number] Notes Entered by: KERON BLOCK 23 Mar 2016 1335 ------- ------- ------- ------- -- Plz call re: testost erone ck-or another order to ck. 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 LANCE Davis 04/01 Released w/o Limitations [facility]( Social Work Adult [place] ) [facility]) TELE CONSULT [id number] Notes Entered by: YORDAN PUCKETT 19 Apr 2016 1559 ------- ------- ------- ------- -- Rx request for testost ershay GOPAL PUCKETT 04/19 [facility]( Urol Prostat e Center ) [facility](Fa jeanette Practice [place]) OUTPATIENT [id number] heart burn/f/ u per pt req LILLIAN OLIVIA V 04/20 Released w/o Limitations [facility]( Family Practic e [place] [facility]) [facility](Fa jeanette Practice [facility]) TELE CONSULT [id number] LILLIAN OLIVIA V 04/23 [facility]( Family Practic e [facility]) [facility](Op hthalmolo gy Oculoplas tics [place]) OUTPATIENT [id number] pre surgica l visit, KOLBY LOZADA 05/25 Released w/o Limitations [facility]) TELE CONSULT [id number] Notes Entered by: YORDAN PUCKETT A 15 Jun 2016 0937 ------- ------- ------- ------- -- PSA elevati on GOPAL PUCKETT 06/15 [facility]( Urol Prostat e Center [facility]) [facility](Fa jeanette Practice [place] [facility]) OUTPATIENT [id number] f/u LILLIAN OLIVIA V 07/07 Released w/o Limitations [facility]( Family Practic e [facility]) [facility](Ur ol Prostate Center [facility]) OUTPATIENT [id number] f/u GOPAL PUCKETT Jennifer 07/16 Released w/o Limitations [facility]( Urol Prostat e Center [facility]) [facility](Op hthalmolo gy Oculoplas tics [place]) TELE CONSULT [id number] Notes Entered by: MARCIAL LOZADA 20 Jul 2016 1855 ------- ------- ------- ------- -- Pre-op questio ns KOLBY LOZADA 07/20 [facility]( Ophthal mology Oculopl astics [place]) [facility](Fa jeanette Practice [place]) OUTPATIENT [id number] inshaveni LILLIAN Rhodes V 07/23 Released w/o Limitations [facility]( Family Practic e [place]) [facility](Op hthalmolo gy Oculoplas tics [place]) OUTPATIENT [id number] Notes Entered by: JESSENIA CHRISTIANSON 26 Jul 20162025 ------- ------- ------- ------- -- Op Report KOLBY LOZADA 07/27 Released w/o Limitations [facility]( Ophthal mology Oculopl astics [place]) [facility](Fa jeanette Practice [place]) TELE CONSULT [id number] Notes Entered by: Christiane QUESADA 29 Jul 2016 1256 ------- ------- ------- ------- -- LILLIAN SOUSA V 07/29 [facility]( Family Practic e [place]) [facility](Op hthalmolo gy Oculoplas tics [place]) OUTPATIENT [id number] 1 wk POP KIERRA, KOLBY 08/03 Released w/o Limitations [facility]( Ophthal mology Oculopl astics [place]) [facility]) TELE CONSULT [id number] Notes Entered by: BROOKE HUNT 18 Aug 2016 1027 ------- ------- ------- ------- -- Rx refill LILLIAN OLIVIA V 08/18 [facility]( Family Practic e [facility]) [facility](Op hthalmolo gy Oculoplas tics [place]) OUTPATIENT [id number] SEE RANKIN/SEBAS Miramontes KIERRAKOLBY 09/06 Released w/o Limitations [facility]( Ophthal mology Oculopl astics [place]) [facility](Nc rdiology Clinic [place]) OUTPATIENT [id number] Notes Entered by: SOHAIL CARDENAS 30 Sep 2016 0938 ------- ------- ------- ------- -- DECADE STUDY ENROLLM VITOR ALVARES 09/30 Released w/o Limitations [facility]( [facility]iol [facility]gy [facility] [place]) [facility](Nc rdiology Clinic [place]) OUTPATIENT [id number] Notes Entered by: SOHAIL CARDENAS 30 Sep 2016 0939 ------- ------- ------- ------- -- ENDOTHE LIX ASSESSM VITOR ALVARES 09/30 Released w/o Limitations [facility]( [facility]iol [facility]gy [facility] [place]) [facility]) OUTPATIENT [id number] Notes Entered by: ANITA WANG 02 Oct 2016 1315 ------- ------- ------- ------- -- walk-in -possib le strep?? NAKUL LAZCANO 10/02 Released w/o Limitations [facility]( Family Practic e [place]) [facility](Ur ol Prostate Center Be) TELE CONSULT [id number] ITALO GOPAL A 10/15 [facility]( Urol Prostat e Center [facility]) [facility](Fa jeanette Practice [place]) TELE CONSULT [id number] Notes Entered by: HAY MORALES 20 Oct 2016 0956 ------- ------- ------- ------- -- med.ref ill LILLIAN OLIVIA V 10/20 [facility]( Family Practic e [place] [facility]) [facility](Fa jeanette Practice [place]) OUTPATIENT [id number] insomni a fu (resche dule) LILLIAN OLIVIA V 11/02 Released w/o Limitations [facility]( Family Practic e [facility]) [facility]) OUTPATIENT [id number] anxiety , depress ion LANCE YAP 11/08 Released w/o Limitations [facility]( [facility] ) [facility](Fa jeanette Practice [place] [facility]) TELE CONSULT [id number] Notes Entered by: CARY HERNANDEZ 09 Nov 2016 1747 ------- ------- ------- ------- -- [facility] referLILLIAN Crockett V 11/09 [facility]( Family Practic e [place] [facility]) [facility](Fa jeanette Practice [place] [facility]) TELE CONSULT [id number] Notes Entered by: Christiane QUESADA 19 Nov 2016 0821 ------- ------- ------- ------- -- med renewal LILLIAN OLIVIA V 11/19 [facility]( Family Practic e [facility]) [facility](Fa jeanette Practice [place] [facility]) OUTPATIENT [id number] f/u on insomni a and anxiety LILLIAN OLIVIA V 12/06 Released w/o Limitations [facility]( Family Practic e [facility] FX) [facility]) OUTPATIENT [id number] 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 LANCE Davis 12/10 Released w/o Limitations [facility]( [facility] ) [facility] Gold FX) TELE CONSULT [id number] Notes Entered by: CARY HERNANDEZ 10 Dec 2016 1748 ------- ------- ------- ------- -- [facility] follow- up LILLIAN OLIVIA V 12/10 [facility]( Family Practic e [facility]) [facility]) TELE CONSULT [id number] LILLIAN OLIVIA V 12/17 [facility]( Family Practic e [place] ) [facility] Practice [facility]) TELE CONSULT [id number] Notes Entered by: BROOKE HUNT 27 Dec 2016 1739 ------- ------- ------- ------- -- Derm LILLIAN Torres V 12/27 [facility]( Family Practic e [facility]) [facility]) TELE CONSULT [id number] Notes Entered by: HUNTER PABON 07 Jan 2017 0851 ------- ------- ------- ------- -- cough/b mary is HAY Thornton 01/07 Referred for Appointment [facility]( [facility] ) [facility] Practice [facility]) OUTPATIENT [id number] cough LILLIAN OLIVIA V 01/08 Released w/o Limitations [facility]( Family Practic e [facility]) [facility](Ur ol Prostate Center Be) OUTPATIENT [id number] f/u GOPAL PUCKETT 01/10 Released w/o Limitations [facility]( Urol Prostat e Center Be) [facility](Fa jeanette Practice [facility]) OUTPATIENT [id number] LILLIAN OLIVIA V 01/21 Released w/o Limitations [facility]( [facility] Practic [facility] [place] [facility]) [facility] [id number] Actinic keratos is KVNG WOOD Elian 01/25 Released w/o Limitations [facility]( [facility]y [facility] [place]) [facility](Fa jeanette Practice [facility]) OUTPATIENT [id number] OLIVIA, LILLIAN Gtz 03/15 Released w/o Limitations [facility]( Family Practic e [place] [facility]) [facility]) OUTPATIENT [id number] f/u LANCE YAP 03/29 Released w/o Limitations [facility]( [facility] ) [facility](Fa jeanette Practice [facility]) TELE CONSULT [id number] Notes Entered by: CARY HERNANDEZ 01 Apr 20172053 ------- ------- ------- ------- -- [facility] follow- up CARY MIJARES 04/02 [facility]( Family Practic e [facility]) [facility] [place] [facility]) TELE CONSULT [id number] Notes Entered by: VALERIO THOMAS 02 May 2017 0933 ------- ------- ------- ------- -- Request ing medicat ion Fortest a-10mg. [facility]. GOPAL PUCKETT 05/02 [facility]( Urol Prostat e Center [facility]) [facility]) TELE CONSULT [id number] Notes Entered by: VALERIO THOMAS 09 May 2017 1242 ------- ------- ------- ------- -- Request ing medicat ion Forgest a. [facility]. GOPAL PUCKETT 05/09 [facility]( Urol Prostat e Center [facility]) [facility](Ca rdiology Clinic [place]) OUTPATIENT [id number] Thoraci c aortic aneurys m, without rupture TK RIVERA 05/13 Released w/o Limitations [facility]( Cardiol [facility]gy [facility] [place]) [facility](Fa jeanette Practice [facility]) TELE CONSULT [id number] Notes Entered by: EDDA WONG 17 May 2017 1154 ------- ------- ------- ------- -- RX LILLIAN OLIVIA V 05/17 [facility]( Family Practic e [place] [facility]) [facility] TELE CONSULT [id number] Notes Entered by: Esther WAGNER 18 May 2017 1341 ------- ------- ------- ------- -- Patient Contact ed VIRI WAGNER 05[facility]18 [facility] OUTPATIENT [id number] follow up LILLIAN OLIVIA V 05/26 Released w/o Limitations [facility]( Family Practic e [place] [facility]) [facility]) TELE CONSULT [id number] Notes Entered by: Esther WAGNER 27 May 2017 0954 ------- ------- ------- ------- -- Schedul ed For A OC VIRI WAGNER 05/27 [facility] TELE CONSULT [id number] Notes Entered by: Esther WAGNER 28 Jun 2017 0953 ------- ------- ------- ------- -- Reminde r Call For A Procedu re Appoint ment VIRI WAGNER 06/28 [facility](Fa jeanette Practice [facility]) OUTPATIENT [id number] agustín miramontes in left hand at [facility] LILLIAN OLIVIA V 06/28 Released w/o Limitations [facility]( Family Practic e [place] [facility]) [facility](Fa jeanette Practice [facility]) TELE CONSULT [id number] Notes Entered by: SILVIA RTAN 04 Jul 2017 1247 ------- ------- ------- ------- -- Med Refll LILLIAN OLIVIA V 07/04 [facility]( Family Practic e [place] [facility]) [facility](Or thopedics Hand Cl [facility]) OUTPATIENT [id number] Contrac sarah, left hand DEMETRIO TERRY Esther 07/14 Released w/o Limitations [facility]( Orthope dics Hand Cl FB) [facility](Fa jeanette Practice Gold FX) OUTPATIENT [id number] throat pain LILLIAN OLIVIA V 08/05 Released w/o Limitations [facility]( Family Practic e Gold FX) [facility] Be) TELE CONSULT [id number] Notes Entered by: YORDAN PUCKETT 05 Aug 2017 1349 ------- ------- ------- ------- -- MRI results GOPAL PUCKETT 08/05 [facility]( [facility]rol [facility] Be) [facility] Be) OUTPATIENT [id number] mri guided bxp [address] 08/09 Released w/o Limitations [facility]( [facility] Be) [facility](Fa jeanette Practice Gold FX) TELE CONSULT [id number] Notes Entered by: CHAYO WIGGINS 27 Aug 2017 1222 ------- ------- ------- ------- -- medicat ion LILLIAN OLIVIA V 08/27 [facility]( Family Practic e Gold FX) [facility](Fa jeanette Practice Gold FX) TELE CONSULT [id number] Notes Entered by: SILVIA TRAN 29 Aug 2017 0939 ------- ------- ------- ------- -- Med Refill LILLIAN OLIVIA V 08/29 [facility]( Family Practic e Gold FX) [facility](Fa je[facility]ette Practice Gold FX) OUTPATIENT [id number] hearing issues and audiolo gy referra l LILLIAN OLIVIA V 09/08 Released w/o Limitations [facility]( Family Practic e Gold FX) [facility] Be) OUTPATIENT [id number] MRI Guided Biopsy [address] 09/15 Released w/o Limitations [facility]( Urol Prostat e Center Be) [facility](Ur ology Cl Be) TELE CONSULT [id number] [address] 09/22 [facility]( Urology Cl Be) [facility](Ot olaryngol ogy Clinic [place]) OUTPATIENT [id number] [place] single thyroid nodule JAI WALKER 09/22 Released w/o Limitations [facility]( [facility]ary [facility]) [facility](Fa [facility]) TELE CONSULT [id number] LILLIAN OLIVIA V 09/27 [facility]( [facility] ) [facility](Ur ol Prostate Center Be) OUTPATIENT [id number] Multi-d [address] 10/31 Released w/o Limitations [facility]( Urol Prostat e Center Be) [facility](Ma le Inf/Sexua l Health Be) OUTPATIENT [id number] multi d NACHO OCASIO 10/31 Released w/o Limitations [facility]( Male Inf/Sex ual Health Be) [facility](Ur Prostate Center Be) OUTPATIENT [id number] Notes Entered by: Esther LOPEZ 31 Oct 2017 1102 ------- ------- ------- ------- -- Multi-D iscipli constanza Prostat e Cancer Clinic SOFIYA LOPEZ 10/31 Released w/o Limitations [facility]( Urol Prostat e Center Be) [facility](Ra d Oncology [facility] BE) OUTPATIENT [id number] PROSTAT E CLINIC NERI AQUINO 10/31 Released w/o Limitations [facility]( Rad Oncolog y [facility] BE) [facility](Ca rdiology [facility] [place]) TELE CONSULT [id number] Notes Entered by: Tony VELASQUEZ 31 Oct 2017 1432 ------- ------- ------- ------- -- PATIENT REQ ECHO - NO CONSULT IN SYSTEM ZOHREH GABRIEL 10/31 [facility]( Cardiol ogy Clinic [facility] a) [facility](Ur ol Prostate Center Be) TELE CONSULT [id number] Notes Entered by: YORDAN PUCKETT 07 Nov 2017 0754 ------- ------- ------- ------- -- Prostat e cancer GOPAL PUCKETT 11/07 [facility]( [facility]rol [facility]stat [facility] Be) [facility](Or thopedics Hand Cl FB) OUTPATIENT [id number] f/u dupuytr en's contrac ture on L hand ZIYAD MEIER 11/10 Released w/o Limitations [facility]( Orthope dics Hand Cl FB) [facility]( joblocal FX) TELE CONSULT [id number] Notes Entered by: Christiane QUESADA 11 Nov 2017 0944 ------- ------- ------- ------- -- med LILLIAN Wooten V 11/11 [facility]( Family Practic e Gold FX) [facility](Or thopedics Hand Cl FB) OUTPATIENT [id number] injecti ons for Dupuytr ens contrac ture ZIYAD MEIER 11/22 Released w/o Limitations [facility]( Orthope dics Hand Cl FB) [facility](Or thopedics Hand Cl FB) OUTPATIENT [id number] injecti on for Dupuytr ens ZIYAD MEIER 11/23 Released w/o Limitations [facility]( Orthope dics Hand Cl FB) [facility] [place]) TELE CONSULT [id number] Notes Entered by: Bo AQUINO 30 Nov 2017 1823 ------- ------- ------- ------- -- Barium swallow results NACHO AQUINO 11/30 Medication Refill Forwarded [facility]( Otolary ngology [facility] a) [facility](Fa [facility] Gold FX) TELE CONSULT [id number] Notes Entered by: Christiane QUESADA 23 Dec 2017 1740 ------- ------- ------- ------- -- med renewal NIK EVANS Bety 12/23 [facility]( Family Practic e Gold FX) [facility](Ur [facility]state Center Be) TELE CONSULT [id number] Notes Entered by: YORDAN PUCKETT 27 Dec 2017 1229 ------- ------- ------- ------- -- lab results GOPAL PUCKETT 12/27 [facility]( [facility]rol [facility]stat [facility] Be) [facility](Or thopedics Hand Cl FB) OUTPATIENT [id number] f/u left hand ZIYAD MEIER 01/27 Released w/o Limitations [facility]( Orthope dics Hand Cl FB) [facility](Ca [facility]ology [facility] [place]) OUTPATIENT [id number] NACHO GILLIS 01/31 Released w/o Limitations [facility]( [facility]iol [facility]gy [facility] [place] [facility]) [facility](Or thopedics Hand Cl FB) OUTPATIENT [id number] f/u injecti on ZIYAD MEIER 02/15 Released w/o Limitations [facility]( Orthope dics Hand Cl FB) [facility](Or thopedics Hand Cl FB) OUTPATIENT [id number] F/U ZIYAD MEIER 02/21 Released w/o Limitations [facility]( Orthope dics Hand Cl FB) [facility](Fa jeanette Practice Gold FX) OUTPATIENT [id number] feeling dizzy, high blood pressur e LILLIAN OLIVIA V 02/23 Released w/o Limitations [facility]( Family Practic e Gold FX) [facility](Ur [facility] Be) OUTPATIENT [id number] f/u [address] 03/06 Released w/o Limitations [facility]( [facility] Be) [facility](Fa je[facility]ette Practice Gold FX) OUTPATIENT [id number] sinus infecti on, sore throat, lung congest ion, cough MIN WILKS 03/10 Released w/o Limitations [facility]( Family Practic e Gold FX) [facility] Be) TELE CONSULT [id number] Notes Entered by: YORDAN PUCKETT 03 Apr 2018 1440 ------- ------- ------- ------- -- prostat e cancer GOPAL PUCKETT 04/03 [facility]( [facility]stat [facility] Be) [facility](Or thopedics Hand Cl FB) OUTPATIENT [id number] F/U Dupatri ashley copntra reji LIRATREVOR ZIYAD Esther 04/04 Released w/o Limitations [facility]( Orthope dics Hand Cl FB) [facility](Fa [facility] FX) TELE CONSULT [id number] Notes Entered by: EDDA WONG 18 May 2018 1715 ------- ------- ------- ------- -- RX LILLIAN OLIVIA V 05/18 [facility]( Family Practic e Gold FX) [facility]) TELE CONSULT [id number] Notes Entered by: YORDAN PUCKETT 17 Aug 2018 0728 ------- ------- ------- ------- -- prostat e cancer GOPAL PUCKETT 08/17 [facility]( [facility] Be) [facility](Fa je[facility]ette Practice [facility] FX) TELE CONSULT [id number] Notes Entered by: Christiane QUESADA 18 Aug 2018 1121 ------- ------- ------- ------- -- med refill LILLIAN OLIVIA V 08/18 [facility]( Family Practic e Gold FX) [facility](Fa je[facility]ette Practice Gold FX) TELE CONSULT [id number] Notes Entered by: JOSE AGUILAR V 06 Sep 2018 1233 ------- ------- ------- ------- -- Med refill/ PE CORWIN ILLLIAN V 09/06 [facility]( Family Practic e Gold FX) [facility](Ur ol Prostate Center Be) OUTPATIENT [id number] f/u prostat e ARIANAKATHRYN HUNTER 09/08 Released w/o Limitations [facility]( Urol Prostat e Center Be) [facility](Ca rdiology Clinic [place]) TELE CONSULT [id number] Notes Entered by: JEYSON SHAIKH,SANTOS Jimenez 11 Sep 2018 1326 ------- ------- ------- ------- -- FOR REGARDI NGT A MRI TEST RESULT. POC (CELL) THANK YOU NACHO GILLIS 09/11 [facility]( Cardiol ogy Clinic [facility]) [facility](Fa jeanette Practice Gold FX) OUTPATIENT [id number] 4 annual check up LILLIAN OLIVIA V 09/22 Released w/o Limitations [facility]( Family Practic e Gold FX) [facility](Ur ology Cl Be) TELE CONSULT [id number] 10/05 [facility]( Urology Cl Be) [facility](Ur ol Prostate Center Be) OUTPATIENT [id number] [address] 11/01 Released w/o Limitations [facility]( Urol Prostat e Center Be) [facility](Fa jeanette Practice Gold FX) TELE CONSULT [id number] Notes Entered by: Christiane QUESADA 16 Nov 2018 1132 ------- ------- ------- ------- -- med refill OLIVIALILLIAN V 11/16 [facility]( Family Practic e Gold FX) [facility](Fa jeanette Practice Gold FX) OUTPATIENT [id number] wart treatme nt LILLIAN OLIVIA V 12/01 Released w/o Limitations [facility]( Family Practic e Gold FX) [facility](Ph ys Therapy CL BE) OUTPATIENT [id number] Plantar fascial fibroma tosis per ptSHERITA IGNACIO 01/11 Released w/o Limitations [facility]( Phys Therapy CL BE) [facility](De rmatology [facility] [place]) OUTPATIENT [id number] Actinic keratos is per pt DEMETRIO BOBBY N 01/15 Released w/o Limitations [facility]( Dermato [facility]y [facility] [place] [facility]) [facility](Or thotics Cl BE) OUTPATIENT [id number] 1 custom orthoti cs ZEVK PADMINI N 01/17 Released w/o Limitations [facility]( Orthoti cs Cl BE) [facility](Fa jeanette Practice Gold FX) OUTPATIENT [id number] 7 f/u plantar wart,Rx OLIVIA, LILLIAN V 02/08 Released w/o Limitations [facility]( Family Practic e Gold FX) [facility](Ph ysical Medicine Clinic ) OUTPATIENT [id number] 4 Pain in left foot ROMEO FORRESTERA M 02/21 Released w/o Limitations [facility]( Physica l Medicin e Clinic Be) [facility](Po diatry Clinic [facility] ) OUTPATIENT [id number] 7 Pain in unspeci fied ankle and joints of unspeci fied foot JENNIFER RODRIGUEZIAS J 03/21 Released w/o Limitations [facility]( Podiatr y Clinic [facility]) [facility](Ur ol Prostate Center Be) OUTPATIENT [id number] 7 f/u b4 move [address] 03/26 Released w/o Limitations [facility]( Urol Prostat e Center Be) [address] [place] [address] Group Chan [facility] ([facility]Sco tt [facility] FAMRES Tm Blue) OUTPATIENT [id number] 0 just moved to area, meet PCM, discuss scripts , special ists needs LAW, JELLY D 05/29 Released w/o Limitations [address] [place] [address] Group Chan [facility] ([facility]S cott [facility] Tm Blue) [address] [place] [address] Group Chan [facility] ([facility]Sco tt [facility] FAMRES Tm Blue) OUTPATIENT [id number] 1 neck and arm pain/uc c/er refusal /[id number] AYAN MANNING 06/25 Released w/o Limitations [facility] Group Chan [facility]UR[place] ([facility]S cott [facility] FAMRES Tm Blue) [address] [place] [address] Group Chan [facility] ([facility]Sco tt [facility] FAMRES Tm Blue) OUTPATIENT [id number] 8 infecte d thumb, left hand JHOANA CASEY 07/11 Released w/o Limitations [facility] Chan CRISTINAB ([facility]S cott [facility] FAM[facility] Tm Blue) [address] [place] [address] Group Chan [facility]ST[facility]AB [facility]Sco tt [facility] FAMRES Tm Blue) TELE CONSULT [id number] Notes Entered by: Jennifer CASEY 12 Jul 2019 1231 ------- ------- ------- ------- -- Lab results JHOANA CASEY 07/12 Other Not Elsewhere Classified [facility] Chan [facility]S cott [facility] Rachio Tm Blue) [address] [place] [address] Group Chan [facility]Sco tt [facility] FAMRES Tm Blue) TELE CONSULT [id number] 3 Notes Entered by: ADRIÁN GREGORY 24 Jul 2019 1147 ------- ------- ------- ------- -- Referra l Renewal / Law/ -GAY White 07/24 Other Not Elsewhere Classified [facility] Group Chan [facility]S cott [facility] Rachio Tm Blue) [address] [place] [address] Group Chan [facility]Sco tt [facility] Rachio Tm Blue) TELE CONSULT [id number] Notes Entered by: MARYANNE HAMILTON 06 Aug 2019 1328 ------- ------- ------- ------- -- Network Results SURG 9 SDG JHOANA CASEY 08/06 Other Not Elsewhere Classified [facility] Chan [facility]S cott [facility] Rachio Tm Blue) [facility] Chan [facility]Sco tt [facility] Rachio Tm Blue) TELE CONSULT [id number] 9 Notes Entered by: Jennifer CASEY NNJennifer 09 Aug 2019 1041 ------- ------- ------- ------- -- u/s results JHOANA CASEY 08/09 Other Not Elsewhere Classified [address] [place] [address] Chan [facility] Blue) [address] [place] [address] Chan [facility]Sco tt [facility]) OUTPATIENT [id number] Lunesta Refill DARRELL MÉNDEZ 08/17 Released w/o Limitations [address] [place] [address] Chan [facility]S [facility] Blue) [address] [place] [address])(Sco tt [facility]) TELE CONSULT [id number] Notes Entered by: Law TRONCOSO 27 Aug 2019 0921 ------- ------- ------- ------- -- Network results Cardiol ogy 019 RADU LIRIANO 08/27 Referred for Appointment [address] [place] [address])([facility] Blue) [address] [place] [address])(Sco tt [facility]) TELE CONSULT [id number] Notes Entered by: AL BURKETT 05 Sep 2019 1035 ------- ------- ------- ------- -- Medical Refill Request / PCM HONEY TAMSULO SIN 0.4mg ATORVAS TATIN 20mg PEPPER OROZCO 09/05 Medication Refill Forwarded [address] [place] [address] Chan [facility])([facility] Blue) [address] [place] [address])(Sco tt [facility]) OUTPATIENT [id number] renew scripts for atorvas tatin (20mg) escital opram (20 mg) by previou s PCM FARZANEH ROSENBERG 10/25 Released w/o Limitations [address] [place] [address] Chan [facility])(S [facility] Tm Blue) [address] [place] [address])(Sco tt [facility] Blue) TELE CONSULT [id number] 1 Notes Entered by: SAMANTHA ROSENBERG 26 Oct 2019 1514 ------- ------- ------- ------- -- Lab results FARZANEH ROSENBERG Esther 10/26 Released to Self [facility] [address] [place] [address] Chan [facility])(S [facility] FAMRES Tm Blue) [address] [place] [address])(Sco tt [facility] FAMRES Tm Blue) OUTPATIENT [id number] 7 DEYSIJASONJAXON SteeleAURORA Foy 12/02 Released w/o Limitations [address] [place] [address] Chan [facility])(S [facility] FAMRES Tm Blue) [address] [place] [address])(Sco tt [facility] FAMRES Tm Blue) TELE CONSULT [id number] Notes Entered by: LIZ BARRERA 06 Feb 2020 1129 ------- ------- ------- ------- -- Referra matthews Request (appt 19 February)/Verenice ennis/ ABDULKADIR GRIFFIN (Jean) 02/05 Immediate Referral [address] [place] [address] Chan [facility])(S [facility] FAMRES Tm Blue) [address] [place] [address])(Sco tt [facility] FAMRES Tm Blue) TELE CONSULT [id number] Notes Entered by: CHARMAINE CARTWRIGHT 28 Feb 2020 0925 ------- ------- ------- ------- -- Rx renewal - 6 days left - Law - - [facility] VINNY MERLOS 02/27 Referred for Appointment [address] [place] [address] Chan [facility])(S [facility] FAMRES Tm Blue) [address] [place] [address])(Sco tt [facility] FAMRES Tm Blue) OUTPATIENT [id number] In-Pers on - Med Renewal [phone] RAYSA RAMIREZ 05/27 Released w/o Limitations [address] [place] [address] Chan [facility]S cott [facility] Tm Blue) [address] [place] [address] Chan [facility]Sco tt [facility] FAM[facility] Tm Blue) TELE CONSULT [id number] 1 Notes Entered by: LIZ BARRERA 21 Aug 2020 1431 ------- ------- ------- ------- -- STAT Referra matthews Renewal Request (appt Aug)/Mamadou delon/20 2.550.1 700 PEPPER OROZCO 08/21 Immediate Referral [address] [place] [address] Chan [facility]S cott [facility] FAM[facility] Tm Blue) [address] [place] [address])(Sco tt [facility] FAMRES Tm Blue) TELE CONSULT [id number] 0 Notes Entered by: CHARMAINE CARTWRIGHT 01 Sep 2020 1515 ------- ------- ------- ------- -- Referra matthews renewal - Elvia - - tsg PEPPER OROZCO 09/01 Released to [facility] [address] [place] [address])(S cott [facility] FAMRES Tm Blue) [address] [place] [address])(Sco tt [facility] FAMRES Tm Blue) OUTPATIENT [id number] 5 In Person Appt - F/U on test results - [id number] TK DIAMOND 09/12 Released w/o Limitations [address] [place] [address])(S cott [facility] FAM[facility] Tm Blue) [address] [place] [address] Chan [facility]Sco tt [facility] FAM[facility] Tm Blue) TELE CONSULT [id number] Notes Entered by: LIZ BARRERA 22 Sep 2020 1458 ------- ------- ------- ------- -- COVID Test Request /Elvia /.55 [id number] TK DIAMOND 09/[address] [place] [address])(S cott [facility] FAM[facility] Tm Blue) [facility] Outpatient Encounter [id number] 11/17 [facility] Outpatient Encounter [id number] 12/06 [facility] Outpatient Encounter [id number] Jennifer DEY 01/23 [facility] Outpatient Encounter [id number] 01/25 [facility] Outpatient Encounter [id number] 02/08 [facility] Outpatient Encounter [id number] 10/05 [facility] Outpatient Encounter [id number] 10/05 [facility] Outpatient Encounter [id number] 10/08 [facility] Outpatient Encounter [id number] 11/06 [facility] Procedures Combined list of: 1) Procedures from Department of [facility] Affairs facilities going back up to thelast 18 months, not all [place] non-surgical procedures are included; 2) All procedures from the Department of Defense facilities. Procedure Procedure Type Code Date Perfomer Comments Sourc e OTHER TURBINECTOMY 12/25 [facility] CARDIOVASCULAR STRESS TEST USING MAXIMAL OR SUBMAXIMAL TREADMILL OR BICYCLE EXERCISE,CONTINUOU S ELECTROCARDIOGRAPH IC MONITORING,AND/OR PHARMACOLOGICAL STRESS;W SUPERVISION,INTERP RETATION AND REPORT 10/12 [facility] VISUAL FIELD EXAM,UNILAT/BI,INT ERP&REP;EXT EXM(EG,GOLDMANN VIS FLD,AT LEAST 3 ISOP PLOT&STAT DET W/IN MARKUS 30DEG/QUANT,AUTO THRSH MICHAEL,OCT G-1,32/42,HUMP VIS FLD ANAL FULL THRSH 30-2,24-2, OR 30/60-2) 07/20 [facility] OPHTHALMOSCOPY, EXTENDED, WITH RETINAL DRAWING (EG, FOR RETINAL DETACHMENT, MELANOMA), WITH INTERPRETATION AND REPORT; INITIAL 07/12 [facility] SIGMOIDOSCOPY, FLEXIBLE; DIAGNOSTIC, INCLUDING COLLECTION OF SPECIMEN(S) [...] NEW PATIENT, 1 OR MORE VISITS 02/17 [facility] VISUAL FIELD EXAM,UNILAT/BI,INT ERP&REP;EXT EXM(EG,GOLDMANN VIS FLD,AT LEAST 3 ISOP PLOT&STAT DET W/IN MARKUS 30DEG/QUANT,AUTO THRSH MICHAEL,OCT G-1,32/42,HUMP VIS FLD ANAL FULL THRSH 30-2,24-2, OR 30/60-2) 02/17 [facility] DETERMINATION OF REFRACTIVE STATE 07/23 DoD PARING OR CUTTING OF BENIGN HYPERKERATOTIC LESION (EG, CORN OR CALLUS); SINGLE LESION 03/21 DoD DESTRUCTION (EG, LASER SURGERY, ELECTROSURGERY, CRYOSURGERY, CHEMOSURGERY, SURGICAL CURETTEMENT), OF BENIGN LESIONS OTHER THAN SKIN TAGS OR CUTANEOUS VASCULAR PROLIFERATIVE LESIONS; UP TO 14 LESIONS 02/08 DoD TANGENTIAL BIOPSY OF SKIN (EG, SHAVE, SCOOP, SAUCERIZE, CURETTE); SINGLE LESION 01/15 [facility] FOOT INSERT, REMOVABLE, MOLDED TO PATIENT MODEL, LONGITUDINAL ARCH SUPPORT, EACH 01/15 [facility] MANUAL THERAPY TECHNIQUES (EG, MOBILIZATION/ MANIPULATION, MANUAL LYMPHATIC DRAINAGE, MANUAL TRACTION), 1 OR MORE REGIONS, EACH 15 MINUTES 01/11 DoD DESTRUCTION (EG, LASER SURGERY, ELECTROSURGERY, CRYOSURGERY, CHEMOSURGERY, SURGICAL CURETTEMENT), OF BENIGN LESIONS OTHER THAN SKIN TAGS OR CUTANEOUS VASCULAR PROLIFERATIVE LESIONS; UP TO 14 LESIONS 12/01 [facility] SCREENING TEST OF VISUAL ACUITY, QUANTITATIVE, BILATERAL 09/22 [facility] INFLUENZA VIRUS VACCINE, QUADRIVALENT (IIV4), SPLIT VIRUS, PRESERVATIVE FREE, 0.5 ML DOSAGE, FOR INTRAMUSCULAR USE 07/25 [facility] INJECTION, ENZYME (EG, COLLAGENASE), PALMAR FASCIAL CORD (IE, DUPUYTREN'S CONTRACTURE) 02/15 [facility] ELECTROCARDIOGRAM, ROUTINE ECG WITH AT LEAST 12 LEADS; WITH INTERPRETATION AND REPORT 01/31 [facility] MANIPULATION, PALMAR FASCIAL CORD (IE, DUPUYTREN'S CORD), POST ENZYME INJECTION (EG, COLLAGENASE), SINGLE CORD 11/23 [facility] INJECTION, ENZYME (EG, COLLAGENASE), PALMAR FASCIAL CORD (IE, DUPUYTREN'S CONTRACTURE) 11/22 [facility] HEALTH&BEHAV ASSESSMENT (EG, HEALTH-FOC CLINICAL INTERVIEW, BEHAVIORAL OBSERVATIONS, PSYCHOPHYSICOLOGIC AL MONITOR, HEALTH-ORIENT QUESTIONNAIRES), EA 15 MIN HHYA-JA-HAPH W THE PATIENT; INIT ASSESSMENT 11/01 [facility] LARYNGOSCOPY, FLEXIBLE; DIAGNOSTIC 09/22 [facility] BIOPSY, PROSTATE; NEEDLE OR PUNCH, SINGLE OR MULTIPLE, ANY APPROACH 09/16 [facility] URINALYSIS; QUALITATIVE OR SEMIQUANTITATIVE, EXCEPT IMMUNOASSAYS 08/10 [facility] INFLUENZA VIRUS VACCINE, QUADRIVALENT (IIV4), SPLIT VIRUS, PRESERVATIVE FREE, 0.5 ML DOSAGE, FOR INTRAMUSCULAR USE 07/25 [facility] UNLISTED SPECIAL SERVICE, PROCEDURE OR REPORT 07/04 [facility] FINGER SPLINT, STATIC 06/27 [facility] ELECTROCARDIOGRAM, ROUTINE ECG WITH AT LEAST 12 LEADS; WITH INTERPRETATION AND REPORT 05/13 [facility] BRIEF EMOTIONAL/BEHAVIOR AL ASSESSMENT (EG, DEPRESSION INVENTORY, ATTENTION-DEFICIT/ HYPERACTIVITY DISORDER [ADHD] SCALE), WITH SCORING AND DOCUMENTATION, PER STANDARDIZED INSTRUMENT 04/01 DoD HEALTH AND BEHAVIOR INTERVENTION, EACH 15 MINUTES, [id number]; INDIVIDUAL 03/29 [facility] DESTRUCT (EG, LASER SURGERY, ELECTROSURGERY, CRYOSURGERY, CHEMOSURGERY, SURGICAL CURETTEMENT), PREMALIGNANT LESIONS (EG, ACTINIC KERATOSES); 2ND THRU 14 LESIONS, EA (LIST SEP ADDITION CD, 1ST LESION) 01/25 [facility] HEALTH AND BEHAVIOR INTERVENTION, EACH 15 MINUTES, [id number]; INDIVIDUAL 12/10 [facility] HEALTH AND BEHAVIOR INTERVENTION, EACH 15 MINUTES, [id number]; INDIVIDUAL 11/08 [facility] POSTOPERATIVE FOLLOW-UP VISIT, NORMALLY INCLUDED IN THE SURGICAL PACKAGE, INDICATE THAT EVALUATION & MANAGEMENT SERVICE WAS PERFORMED DURING A POSTOPERATIVE PERIOD REASON RELATED ORIGINAL PROCEDURE 09/06 Do[facility] POSTOPERATIVE FOLLOW-UP VISIT, NORMALLY INCLUDED IN THE SURGICAL PACKAGE, INDICATE THAT EVALUATION & MANAGEMENT SERVICE WAS PERFORMED DURING A POSTOPERATIVE PERIOD REASON RELATED ORIGINAL PROCEDURE 08/03 [facility] INFLUENZA VIRUS VACCINE, TRIVALENT (IIV3), SPLIT VIRUS, PRESERVATIVE FREE, 0.5 ML DOSAGE, FOR INTRAMUSCULAR USE 08/02 [facility] POSTOPERATIVE FOLLOW-UP VISIT, NORMALLY INCLUDED IN THE SURGICAL PACKAGE, INDICATE THAT EVALUATION & MANAGEMENT SERVICE WAS PERFORMED DURING A POSTOPERATIVE PERIOD REASON RELATED ORIGINAL PROCEDURE 07/26 [facility] UNLISTED SPECIAL SERVICE, PROCEDURE OR REPORT 07/26 [facility] OPHTHALMOLOGICAL SERVICES: MEDICAL EXAMINATION AND EVALUATION, WITH INITIATION OR CONTINUATION OF DIAGNOSTIC AND TREATMENT PROGRAM; INTERMEDIATE, ESTABLISHED PATIENT 05/25 [facility] TETANUS, DIPHTHERIA TOXOIDS AND ACELLULAR PERTUSSIS VACCINE (TDAP), WHEN ADMINISTERED TO INDIVIDUALS 7 YEARS OR OLDER, FOR INTRAMUSCULAR USE 04/20 [facility] HEALTH AND BEHAVIOR INTERVENTION, EACH 15 MINUTES, [id number]; INDIVIDUAL 04/01 [facility] OPHTHALMOLOGICAL SERVICES: MEDICAL EXAMINATION AND EVALUATION, WITH INITIATION OR CONTINUATION OF DIAGNOSTIC AND TREATMENT PROGRAM; INTERMEDIATE, ESTABLISHED PATIENT 02/11 [facility] OPHTHALMOLOGICAL SERVICES: MEDICAL EXAMINATION AND EVALUATION, WITH INITIATION OR CONTINUATION OF DIAGNOSTIC AND TREATMENT PROGRAM; COMPREHENSIVE, ESTABLISHED PATIENT, 1 OR MORE VISITS 01/25 [facility] ELECTROCARDIOGRAM, ROUTINE ECG WITH AT LEAST 12 LEADS; WITH INTERPRETATION AND REPORT 01/21 [facility] IMMUNIZATION ADMINISTRATION (INCLUDES PERCUTANEOUS, INTRADERMAL, SUBCUTANEOUS, OR INTRAMUSCULAR INJECTIONS); 1 VACCINE (SINGLE OR COMBINATION VACCINE/TOXOID) 01/04 [facility] ELECTROCARDIOGRAM, ROUTINE ECG WITH AT LEAST 12 LEADS; WITH INTERPRETATION AND REPORT 12/24 [facility] THERAPEUTIC PROCEDURE, 1 OR MORE AREAS, EACH 15 MINUTES; THERAPEUTIC EXERCISES TO DEVELOP STRENGTH AND ENDURANCE, RANGE OF MOTION AND FLEXIBILITY 12/21 [facility] VISUAL FIELD EXAM,UNILAT/BI,INT ERP&REP;EXT EXM(EG,GOLDMANN VIS FLD,AT LEAST 3 ISOP PLOT&STAT DET W/IN MARKUS 30DEG/QUANT,AUTO THRSH MICHAEL,OCT G-1,32/42,HUMP VIS FLD ANAL FULL THRSH 30-2,24-2, OR 30/60-2) 12/16 [facility] HEALTH AND BEHAVIOR INTERVENTION, EACH 15 MINUTES, [id number]; INDIVIDUAL 12/08 [facility] OPHTHALMOLOGICAL SERVICES: MEDICAL EXAMINATION AND EVALUATION, WITH INITIATION OR CONTINUATION OF DIAGNOSTIC AND TREATMENT PROGRAM; COMPREHENSIVE, ESTABLISHED PATIENT, 1 OR MORE VISITS 11/06 [facility] HEALTH&BEHAV ASSESSMENT (EG, HEALTH-FOC CLINICAL INTERVIEW, BEHAVIORAL OBSERVATIONS, PSYCHOPHYSICOLOGIC AL MONITOR, HEALTH-ORIENT QUESTIONNAIRES), EA 15 MIN [id number] W THE PATIENT; INIT ASSESSMENT 10/10 [facility] FOOT INSERT, REMOVABLE, MOLDED TO PATIENT MODEL, LONGITUDINAL ARCH SUPPORT, EACH 10/09 [facility] FLUOROSCOPIC GUIDANCE & LOCALIZATION OF NEEDLE OR CATHETER TIP FOR SPINE/PARASPINOUS DIAG/THERAPEUTIC INJECTION PROCEDURES (EPIDURAL/SUBARACH NOID) (LIST SEPARATELY IN ADD TO CODE FOR PRIMARY PROC) 08/21 [facility] ECHOCARDIOGRAPHY,T RANSTHORACIC,REAL- TIME W IMAGE DOCUMENTATION (2D),INCLUDES M-MODE RECORDING,WHEN PERFORMED,COMPLETE ,WITH SPECTRAL DOPPLER ECHOCARDIOGRAPHY,A ND W COLOR FLOW DOPPLER ECHOCARDIOGRAPHY 08/21 [facility] THERAPEUTIC PROCEDURE, 1 OR MORE AREAS, EACH 15 MINUTES; THERAPEUTIC EXERCISES TO DEVELOP STRENGTH AND ENDURANCE, RANGE OF MOTION AND FLEXIBILITY 08/20 [facility] DETERMINATION OF REFRACTIVE STATE 08/19 [facility] DESTRUCT (EG, LASER SURGERY, ELECTROSURGERY, CRYOSURGERY, CHEMOSURGERY, SURGICAL CURETTEMENT), PREMALIGNANT LESIONS (EG, ACTINIC KERATOSES); 2ND THRU 14 LESIONS, EA (LIST SEP ADDITION CD, 1ST LESION) 07/22 [facility] INFLUENZA VIRUS VACCINE, TRIVALENT (IIV3), SPLIT VIRUS, PRESERVATIVE FREE, 0.5 ML DOSAGE, FOR INTRAMUSCULAR USE 07/18 [facility] ELECTROCARDIOGRAM, ROUTINE ECG WITH AT LEAST 12 LEADS; WITH INTERPRETATION AND REPORT 07/10 [facility] MEASUREMENT OF POST-VOIDING RESIDUAL URINE AND/OR BLADDER CAPACITY BY ULTRASOUND, NON-IMAGING 07/08 [facility] BRIEF EMOTIONAL/BEHAVIOR AL ASSESSMENT (EG, DEPRESSION INVENTORY, ATTENTION-DEFICIT/ HYPERACTIVITY DISORDER [ADHD] SCALE), WITH SCORING AND DOCUMENTATION, PER STANDARDIZED INSTRUMENT 06/24 [facility] TELE ASSESS & MGT SRV PROV QUAL NONPHYS HLTH CARE PRO TO EST PAT,PARENT,GUARD NOT ORIG REL ASSESS & MGT SRV PROV W/IN PREV 7 DAYS NOR LEAD ASSESS & MGT SRV/PX W/IN NXT 24 HR/SOON APT;5-10 MIN MED DIS 06/16 [facility] ELECTROCARDIOGRAM, ROUTINE ECG WITH AT LEAST 12 LEADS; WITH INTERPRETATION AND REPORT 05/21 [facility] THERAPEUTIC, PROPHYLACTIC, OR DIAGNOSTIC INJECTION (SPECIFY SUBSTANCE OR DRUG); SUBCUTANEOUS OR INTRAMUSCULAR 04/07 [facility] VISUAL FIELD EXAM,UNILAT/BI,INT ERP&REP;EXT EXM(EG,GOLDMANN VIS FLD,AT LEAST 3 ISOP PLOT&STAT DET W/IN MARKUS 30DEG/QUANT,AUTO THRSH MICHAEL,OCT G-1,32/42,HUMP VIS FLD ANAL FULL THRSH 30-2,24-2, OR 3060-2) 03/02 [facility] APPLICATION OF FINGER SPLINT; STATIC 01/19 [facility] COUNSELING AIDE ELECTROCARDIOGRAPH IC RECORDING UP TO 48 HOUR,CONT RHYTHM RECORDING & STORAGE;INCLUD RECORDING,SCANNING ANAL W REPORT,REVIEW &INTERPRETATION,A PHYSICIAN/OTHER QUALIFIED HEALTH HOME SALES CONSULTANT 12/14 [facility] THERAPEUTIC, PROPHYLACTIC, OR DIAGNOSTIC INJECTION (SPECIFY SUBSTANCE OR DRUG); SUBCUTANEOUS OR INTRAMUSCULAR 11/18 [facility] ELECTROCARDIOGRAM, ROUTINE ECG WITH AT LEAST 12 LEADS; WITH INTERPRETATION AND REPORT 11/02 [facility] EXTERNAL OCULAR PHOTOGRAPHY WITH INTERPRETATION AND REPORT FOR DOCUMENTATION OF MEDICAL PROGRESS (EG, CLOSE-UP PHOTOGRAPHY, SLIT LAMP PHOTOGRAPHY, GONIOPHOTOGRAPHY, STEREO-PHOTOGRAPHY ) 10/26 [facility] OPHTHALMOLOGICAL SERVICES: MEDICAL EXAMINATION AND EVALUATION WITH INITIATION OF DIAGNOSTIC AND TREATMENT PROGRAM; INTERMEDIATE, NEW PATIENT 09/23 [facility] CARDIOVASCULAR STRESS TEST USING MAXIMAL OR SUBMAXIMAL TREADMILL OR BICYCLE EXERCISE,CONTINUOU S ELECTROCARDIOGRAPH IC MONITORING,AND/OR PHARMACOLOGICAL STRESS;W SUPERVISION,INTERP RETATION AND REPORT 09/22 [facility] ECHOCARDIOGRAPHY,Fe CLARK,REAL- TIME W IMAGE DOCUMENTATION (2D),INCLUDES M-MODE RECORDING,WHEN PERFORMED,COMPLETE ,WITH SPECTRAL DOPPLER ECHOCARDIOGRAPHY,A ND W COLOR FLOW DOPPLER ECHOCARDIOGRAPHY 09/06 [facility] ELECTROCARDIOGRAM, ROUTINE ECG WITH AT LEAST 12 LEADS; WITH INTERPRETATION AND REPORT 09/06 [facility] SCANNING COMPUTERIZED OPHTHALMIC DIAGNOSTIC IMAGING, POSTERIOR SEGMENT, WITH INTERPRETATION AND REPORT, UNILATERAL OR BILATERAL; OPTIC NERVE 08/23 [facility] BIOPSY OF SKIN, SUBCUTANEOUS TISSUE AND/OR MUCOUS MEMBRANE (INCLUDING SIMPLE CLOSURE),UNLESS OTHERWISE LISTED (SEPARATE PROCEDURE); EACH SEPARATE/ADD LESION (LIST SEP IN ADD TO CODE FOR PRIMARY PROC) 08/03 [facility] DETERMINATION OF REFRACTIVE STATE 07/28 [facility] ULTRASONIC GUIDANCE FOR NEEDLE PLACEMENT (EG, BIOPSY, ASPIRATION, INJECTION, LOCALIZATION DEVICE), IMAGING SUPERVISION AND INTERPRETATION 07/05 [facility] TELE ASSESS & MGT SRV PROV QUAL NONPHYS HLTH CARE PRO TO EST PAT,PARENT,GUARD NOT ORIG REL ASSESS & MGT SRV PROV W/IN PREV 7 DAYS NOR LEAD ASSESS & MGT SRV/PX W/IN NXT 24 HR/SOON APT;5-10 MIN MED DIS 01/25 [facility] ARTHROCENTESIS, ASPIRATION AND/OR INJECTION, MAJOR JOINT OR BURSA (EG, SHOULDER, HIP, KNEE, SUBACROMIAL BURSA); WITHOUT ULTRASOUND GUIDANCE 10/23 [facility] ECHOCARDIOGRAPHY, TRANSTHORACIC, REAL-TIME WITH IMAGE DOCUMENTATION (2D), INCLUDES M-MODE RECORDING, WHEN PERFORMED, COMPLETE, WITHOUT SPECTRAL OR COLOR DOPPLER ECHOCARDIOGRAPHY 10/12 [facility] ELECTROCARDIOGRAM, ROUTINE ECG WITH AT LEAST 12 LEADS; WITH INTERPRETATION AND REPORT 09/30 [facility] PHYSICAL THERAPY RE-EVALUATION 09/23 [facility] APPLICATION OF [...] MORE AREAS; IONTOPHORESIS, EACH 15 MINUTES 06/22 [facility] APPLICATION OF A MODALITY TO 1 OR MORE AREAS; IONTOPHORESIS, EACH 15 MINUTES 06/18 [facility] PHYSICAL THERAPY EVALUATION 06/15 [facility] DETERMINATION OF REFRACTIVE STATE 05/28 [facility] SCANNING COMPUTERIZED OPHTHALMIC DIAGNOSTIC IMAGING, POSTERIOR SEGMENT, (EG, SCANNING LASER) WITH INTERPRETATION AND REPORT, UNILATERAL 12/08 [facility] POSTOPERATIVE FOLLOW-UP VISIT, NORMALLY INCLUDED IN THE SURGICAL PACKAGE, INDICATE THAT EVALUATION & MANAGEMENT SERVICE WAS PERFORMED DURING A POSTOPERATIVE PERIOD REASON RELATED ORIGINAL PROCEDURE 11/24 [facility] UNLISTED SPECIAL SERVICE, PROCEDURE OR REPORT 11/19 [facility] ELECTROCARDIOGRAM, ROUTINE ECG WITH AT LEAST 12 LEADS; TRACING ONLY, WITHOUT INTERPRETATION AND REPORT 11/06 [facility] OPHTHALMOLOGICAL SERVICES: MEDICAL EXAMINATION AND EVALUATION, WITH INITIATION OR CONTINUATION OF DIAGNOSTIC AND TREATMENT PROGRAM; INTERMEDIATE, ESTABLISHED PATIENT 10/31 [facility] OPHTHALMIC ULTRASOUND, ECHOGRAPHY, DIAGNOSTIC; CORNEAL PACHYMETRY, UNILATERAL OR BILATERAL (DETERMINATION OF CORNEAL THICKNESS) 10/31 [facility] OPHTHALMIC ULTRASOUND, ECHOGRAPHY, DIAGNOSTIC; CORNEAL PACHYMETRY, UNILATERAL OR BILATERAL (DETERMINATION OF CORNEAL THICKNESS) 09/30 [facility] EXTERNAL OCULAR PHOTOGRAPHY WITH INTERPRETATION AND REPORT FOR DOCUMENTATION OF MEDICAL PROGRESS (EG, CLOSE-UP PHOTOGRAPHY, SLIT LAMP PHOTOGRAPHY, GONIOPHOTOGRAPHY, STEREO-PHOTOGRAPHY ) 09/19 [facility] ELECTROCARDIOGRAM, ROUTINE ECG WITH AT LEAST 12 LEADS; WITH INTERPRETATION AND REPORT 08/12 [facility] COMPREHENSIVE AUDIOMETRY THRESHOLD EVALUATION AND SPEECH RECOGNITION (24105 AND 00572 COMBINED) 08/12 [facility] DESTRUCTION (EG, LASER SURGERY, ELECTROSURGERY, CRYOSURGERY, CHEMOSURGERY, SURGICAL CURETTEMENT), OF BENIGN LESIONS OTHER THAN SKIN TAGS OR CUTANEOUS VASCULAR PROLIFERATIVE LESIONS; UP TO 14 LESIONS 07/30 [facility] SENSORIMOTOR EXAMINATION WITH MULTIPLE MEASUREMENTS OF OCULAR DEVIATION (EG, RESTRICTIVE OR PARETIC MUSCLE WITH DIPLOPIA) WITH INTERPRETATION AND REPORT (SEPARATE PROCEDURE) 02/17 [facility] INFECTIOUS AGENT ANTIGEN DETECTION BY IMMUNOASSAY WITH DIRECT OPTICAL (IE, VISUAL) OBSERVATION; STREPTOCOCCUS, GROUP A 01/13 [facility] FITTING OF SPECTACLES, EXCEPT FOR APHAKIA; BIFOCAL 12/23 [facility] IMAGING SUPERVISION, INTERPRETATION AND REPORT FOR INJECTION PROCEDURE(S) DURING CARDIAC CATH; PULMONARY ANGIOGRAPHY, AORTOGRAPHY, AND/OR SELECTIVECORONARY ANGIOGRAPHY INC VENOUS BYPASS GRAFTS 11/13 [facility] ELECTROCARDIOGRAM, ROUTINE ECG WITH AT LEAST 12 LEADS; WITH INTERPRETATION AND REPORT 11/05 [facility] SCANNING COMPUTERIZED OPHTHALMIC DIAGNOSTIC IMAGING, POSTERIOR SEGMENT, (EG, SCANNING LASER) WITH INTERPRETATION AND REPORT, UNILATERAL 10/31 [facility] OPHTHALMOSCOPY, EXTENDED, WITH RETINAL DRAWING (EG, FOR RETINAL DETACHMENT, MELANOMA), WITH INTERPRETATION AND REPORT; INITIAL 10/24 [facility] ULTRASONIC GUIDANCE FOR NEEDLE PLACEMENT (EG, BIOPSY, ASPIRATION, INJECTION, LOCALIZATION DEVICE), IMAGING SUPERVISION AND INTERPRETATION 09/16 [facility] NERVE CONDUCTION, AMPLITUDE AND LATENCY/VELOCITY STUDY, EACH NERVE; SENSORY 08/12 [facility] EDUCATION &TRAINING, PATIENT SELF-MGT QUALIFIED, NONPHYSICIAN HEALTH HOME SALES CONSULTANT USING STDIZED CURRICULUM, [id number] W THE PATIENT (COULD INCL CAREGIVER/FAMILY) EA 30 MIN; INDIVIDUAL PATIENT 07/23 [facility] FLUOROSCOPIC GUIDANCE & LOCALIZATION OF NEEDLE OR CATHETER TIP FOR SPINE/PARASPINOUS DIAG/THERAPEUTIC INJECTION PROCEDURES (EPIDURAL/SUBARACH NOID) (LIST SEPARATELY IN ADD TO CODE FOR PRIMARY PROC) 07/22 [facility] NURSING ASSESSMENT/EVALUAT ION 07/02 [facility] INJECTION(S); SINGLE OR MULTIPLE TRIGGER POINT(S), 1 OR 2 MUSCLE(S) 07/01 [facility] THERAPEUTIC, PROPHYLACTIC OR DIAGNOSTIC INJECTION (SPECIFY SUBSTANCE OR DRUG); SUBCUTANEOUS OR INTRAMUSCULAR 06/24 [facility] ELECTROCARDIOGRAM, ROUTINE ECG WITH AT LEAST 12 LEADS; WITH INTERPRETATION AND REPORT 05/21 [facility] DOPPLER ECHOCARDIOGRAPHY, PULSED WAVE AND/OR CONTINUOUS WAVE WITH SPECTRAL DISPLAY (LIST SEPARATELY IN ADDITION TO CODES FOR ECHOCARDIOGRAPHIC IMAGING); COMPLETE 05/07 [facility] VISUAL FIELD EXAM,UNILAT/BI,INT ERP&REP;EXT EXM(EG,GOLDMANN VIS FLD,AT LEAST 3 ISOP PLOT&STAT DET W/IN MARKUS 30DEG/QUANT,AUTO THRSH MICHAEL,OCT G-1,32/42,HUMP VIS FLD ANAL FULL THRSH 30-2,24-2, OR 30/60-2) 01/01 [facility] HEEL, SACH CUSHION TYPE 12/25 [facility] URINALYSIS, BY DIP STICK OR TABLET REAGENT FOR BILIRUBIN, GLUCOSE, HEMOGLOBIN, KETONES, LEUKOCYTES, NITRITE, PH, PROTEIN, SPEC GRAVITY, UROBILINOGEN, ANY NUMBER OF CONSTITUENTS; W/O MICRO, AUTOMATED [facility] DESTRUCTION (EG, LASER SURGERY, ELECTROSURGERY, CRYOSURGERY, CHEMOSURGERY, SURGICAL CURETTEMENT), OF BENIGN LESIONS OTHER THAN SKIN TAGS OR CUTANEOUS VASCULAR PROLIFERATIVE LESIONS; UP TO 14 LESIONS 11/17 [facility] VISUAL FIELD EXAM,UNILAT/BI,INT ERP&REP;EXT EXM(EG,GOLDMANN VIS FLD,AT LEAST 3 ISOP PLOT&STAT DET W/IN MARKUS 30DEG/QUANT,AUTO THRSH MICHAEL,OCT G-1,32/42,HUMP VIS FLD ANAL FULL THRSH 30-2,24-2, OR 30/60-2) 11/10 [facility] ELECTROCARDIOGRAM, ROUTINE ECG WITH AT LEAST 12 LEADS; WITH INTERPRETATION AND REPORT 11/07 [facility] ARTHROCENTESIS, ASPIRATION AND/OR INJECTION, MAJOR JOINT OR BURSA (EG, SHOULDER, HIP, KNEE, SUBACROMIAL BURSA); WITHOUT ULTRASOUND GUIDANCE 06/13 [facility] NONINVASIVE EAR OR PULSE OXIMETRY FOR OXYGEN SATURATION; SINGLE DETERMINATION 04/28 [facility] POSTOPERATIVE FOLLOW-UP VISIT, NORMALLY INCLUDED IN THE SURGICAL PACKAGE, INDICATE THAT EVALUATION & MANAGEMENT SERVICE WAS PERFORMED DURING A POSTOPERATIVE PERIOD REASON RELATED ORIGINAL PROCEDURE 02/15 [facility] ARTHROSCOPY,KNEE,S URGICAL,FOR REMOV OF LOOSE BDY,FOREIGN BDY,DEBRIDEMENT/SH AVING OF ARTICUL CARTILAG (CHONDROPLASTY) AT THE TIME OF OTHSURGICAL KNE ARTHROSCOPY IN A DIFFERENT COMPART OF THE SAME KNEE 02/08 [facility] THERAPEUTIC PROCEDURE, 1 OR MORE AREAS, EACH 15 MINUTES; GAIT TRAINING (INCLUDES STAIR CLIMBING) 02/06 [facility] UNLISTED SPECIAL SERVICE, PROCEDURE OR REPORT 01/13 [facility] UNLISTED SPECIAL SERVICE, PROCEDURE OR REPORT 12/12 [facility] CARDIOVASCULAR STRESS TEST USING MAXIMAL OR SUBMAXIMAL TREADMILL OR BICYCLE EXERCISE,CONTINUOU S ELECTROCARDIOGRAPH IC MONITORING,AND/OR PHARMACOLOGICAL STRESS;W SUPERVISION,INTERP RETATION AND REPORT 11/11 [facility] BIOPSY OF SKIN, SUBCUTANEOUS TISSUE AND/OR MUCOUS MEMBRANE (INCLUDING SIMPLE CLOSURE),UNLESS OTHERWISE LISTED (SEPARATE PROCEDURE); EACH SEPARATE/ADD LESION (LIST SEP IN ADD TO CODE FOR PRIMARY PROC) 11/09 [facility] UNLISTED SPECIAL SERVICE, PROCEDURE OR REPORT 10/12 [facility] Visual Rivers Test Extended Examination Visual Rivers Test Extended Examination 20183 01/01 FARZANEH JACOB Ophthalmological Prior Patient Start Comprehensive Care Ophthalmological Prior Patient Start Comprehensive Care 57830 01/01 FARZANEH JACOB Heel, SACH cushion type 12/25 ELIJAH ROBERT Miramontes Naomi Destruct Of Benign Lesion By Any Method Second Through 14 11/17 KONG FITZPATRICK Destruction Of Benign Lesion By Any Method One Lesion 11/17 KONG FITZPATRICK Biopsy Skin Biopsy Skin 78984 11/17 KONG FITZPATRICK Visual Rivers Test Extended Examination Visual Rivers Test Extended Examination 45307 11/10 FARZANEH JACOB 36 point superior field ptosis test: taped and untaped; OD and OS Naomi Ophthalmological New Patient Start Intermediate Level Care Ophthalmological New Patient Start Intermediate Level Care 95424 11/10 FARZANEH JACOB Arthrocentesis Injection Of Knee Joint Arthrocentesis Injection Of Knee Joint 59970 06/13 SARAH BOATENG Postoperative Visit, Without Charge Postoperative Visit, Without Charge 30355 02/15 SARAH BOATENG Physical Therapy Gait Training Physical Therapy Gait Training 55249 02/06 BHARTI KAY Echo (2-D) Mode Complete 11/11 JARVIS GARZA Echocardiogram Doppler Color Flow Velocity Mapping Echocardiogram Doppler Color Flow Velocity Mapping 62659 11/11 JARVIS GARZA Echocardiogram Doppler Echocardiogram Doppler 95617 11/11 JARVIS GARZA Cardiovascular Stre Test Cardiovascular Stress Test 24082 11/11 JARVIS GARZA Electrocardiogram Electrocardiogram 92545 11/11 JARVIS GARZA Biopsy Skin Biopsy Skin 94104 11/09 VICTORIANO DE LA CRUZ Biopsy Skin Each Additional Lesion Biopsy Skin Each Additional Lesion 04835 11/09 VICTORIANO DE LA CRUZ Destruction Of Benign Lesion By Any Method Destruction Of Benign Lesion By Any Method 75857 02/08 LILLIAN OLIVIA Foot insert, removable, molded to patient model, longitudinal arch support, each 01/17 PADMINI SCHUSTER 2 pair of mtech fos [facility] Ear Pull Machine Operator Educ Orthotics Training Each Additional 15 Minutes Ear Pull Machine Operator Educ Orthotics Training Each Additional 15 Minutes 00294 01/17 PADMINI SCHUSTER Skin Biopsy Technique Shave Single Lesion Skin Biopsy Technique Shave Single Lesion 25721 01/15 JADEN WHITING Procedure: [ ] Punch Biopsy [ x ] Shave Biopsy Location(s): A: right back B: C: [place] protocol was followed in compliance with [facility] standards. Name and date of were [...] and scheduled for definitive management as necessary. [facility] Physical Therapy: ___ Se ion Segments, 15 Minutes Each Physical Therapy: ___ Session Segments, 15 Minutes Each 47177 01/12 SHERITA SHAVER [facility] Physical Therapy Service Evaluation Low Complexity Physical Therapy Service Evaluation Low Complexity 58675 01/12 SHERITA SHAVER [facility] Mobilization Soft Ti ue Mobilization Soft Tissue 14037 01/12 SHERITA SHAVER Musculoskeletal Procedures Injection Of Enzyme Into Palmar Fascia Cord Musculoskeletal Procedures Injection Of Enzyme Into Palmar Fascia Cord 02/15 ZIYAD MEIER [facility] ECG 12-Lead With Interpretation And Report ECG 12-Lead With Interpretation And Report 41016 01/31 NACHO GILLIS [facility] Manipulation Of Palmar Fascial Cord Post Enzyme Injection Manipulation Of Palmar Fascial Cord Post Enzyme Injection 58128 11/23 ZIYAD MEIER Musculoskeletal Procedures Injection Of Enzyme Into Palmar Fascia Cord Musculoskeletal Procedures Injection Of Enzyme Into Palmar Fascia Cord 11/22 ZIYAD MEIER [facility] Health And Behav A e mt Each 15 Min Initial A e ment Health And Behav Assessmt Each 15 Min Initial Assessment 20153 11/01 ALFONSO BURT [facility] Laryngoscopy Diagnostic Flexible Laryngoscopy Diagnostic Flexible 05695 09/22 NACHO AQUINO After discussing procedure and [...] have no lesions. The VCs move normally [facility] Needle Biopsy Of Prostate Needle Biopsy Of Prostate 65853 09/[address] [facility] Urinalysis Urinalysis [address] [facility] Urinalysis Urinalysis 46554 08/[address] [facility] ECG 12-Lead With Interpretation And Report ECG 12-Lead With Interpretation And Report 96593 05/13 TK RIVERA [facility] Telephone calls by a registered nurse to a disease management program member for monitoring purposes; per month 04/02 CARY MIJARES 20 mins [facility] Psychometric Emotional / Behavioral A e [facility] Psychometric Emotional / Behavioral Assessment 48035 04/02 CARY MIJARES [facility] Health And Behavior Intervention, Each Additional 15 Minutes Individual Health And Behavior Intervention, Each Additional 15 Minutes Individual 79745 03/29 LANCE YAP [facility] Destruct Of Premalignant Lesion By Any Method 2nd Through 14 Destruct Of Premalignant Lesion By Any Method 2nd Through 14 37520 01/25 HELENE RODRÍGUEZ Patient was counseled regarding [...] Premalignant Lesion By Any Method One Lesion 23878 01/25 HELENE RODRÍGUEZ Destruction Of Benign Lesion By Any Method 1 - 14 Lesions Destruction Of Benign Lesion By Any Method 1 - 14 Lesions 11860 01/25 HELENE RODRÍGUEZ Health And Behavior Intervention, Each Additional 15 Minutes Individual Health And Behavior Intervention, Each Additional 15 Minutes Individual 75076 12/10 LANCE YAP Health And Behavior Intervention, Each Additional 15 Minutes Individual Health And Behavior Intervention, Each Additional 15 Minutes Individual 91967 11/08 LANCE YAP Postoperative Visit, Without Charge Postoperative Visit, Without Charge 86402 09/06 KOLBY LOZADA Postoperative Visit, Without Charge Postoperative Visit, Without Charge 00504 08/03 JESSENIA CHRISTIANSON External Ocular Photography External Ocular Photography 68948 08/03 JESSENIA CHRISTIANSON Ophthalmological Prior Patient Start Intermediate Level Care Ophthalmological Prior Patient Start Intermediate Level Care 73568 08/03 JESSENIA CHRISTIANSON Postoperative Visit, Without Charge Postoperative Visit, Without Charge 07025 07/27 KOLBY LOZADA Ophthalmological Prior Patient Start Intermediate Level Care Ophthalmological Prior Patient Start Intermediate Level Care 30455 05/25 JOHNNY HALL External Ocular Photography External Ocular Photography 87740 05/25 JOHNNY HALL Tdap Vaccine Seven Years Of Age And Above Tdap Vaccine Seven Years Of Age And Above 14549 04/20 LILLIAN OLIVIA Health And Behavior Intervention, Each Additional 15 Minutes Individual Health And Behavior Intervention, Each Additional 15 Minutes Individual 85769 04/01 LANCE YAP External Ocular Photography External Ocular Photography 17685 02/11 KOLBY LOZADA Ophthalmological Prior Patient Start Intermediate Level Care Ophthalmological Prior Patient Start Intermediate Level Care 83258 02/11 KOLBY LOZADA [facility] Ophthalmological Prior Patient Start Comprehensive Care Ophthalmological Prior Patient Start Comprehensive Care 07708 01/29 BENJI AGUIRRE [facility] Electrocardiogram Electrocardiogram 69989 01/21 MARIVEL FUNG Tony normal sinus ryhthm [facility] Zoster Vaccine Live Zoster Vaccine Live 72157 01/04 STEPHANIE FRAUSTO Immunization Administration By Injection, One Vaccine Immunization Administration By Injection, One Vaccine 28398 01/04 STEPHANIE FRAUSTO [facility] ECG 12-Lead With Interpretation And Report ECG 12-Lead With Interpretation And Report 84452 12/24 TK HAMLIN [facility] Physical Therapy: ___ Se ion Segments, 15 Minutes Each Physical Therapy: ___ Session Segments, 15 Minutes Each 04440 12/21 LIZZETTE BAIN Patient instructed in wall Hamstring stretches and assisted Hamstretches (he and have done these before) ITBand stretches. Foam roll on ITB and hamstrings, mini squats, plank, and hip/arm ext 3 sets 14. [facility] Physical Therapy Service Evaluation Physical Therapy Service Evaluation 99132 12/21 LIZZETTE BAIN Patient with multiple joint issues which is likely contributed to the severely tight hamstrings. [facility] Visual Rivers Test Extended Examination Visual Rivers Test Extended Examination 50382 12/16 DICK LAZCANO [facility] Health And Behavior Intervention, Each Additional 15 Minutes Individual Health And Behavior Intervention, Each Additional 15 Minutes Individual 08190 12/08 LANCE YAP Visual Rivers Test Extended Examination Visual Rivers Test Extended Examination 27101 11/06 VIKAS FRAUSTO Ophthalmological Prior Patient Start Comprehensive Care Ophthalmological Prior Patient Start Comprehensive Care 80976 11/06 VIKAS FRAUSTO Ear Pull Machine Operator Educ Orthotics Training Each Additional 15 Minutes 10/13 GISELLA SANTILLAN Foot insert, removable, molded to patient model, longitudinal arch support, each 10/13 GISELLA SANTILLAN Mil High - Thin Sport [facility] Health And Behav A e mt Each 15 Min Initial A e ment Health And Behav Assessmt Each 15 Min Initial Assessment 82324 10/10 LANCE YAP Fluoroscopic Guidance/Localiz Of Needle For Spinal Injection 08/23 HELENE BOSTON [facility] 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 31551 08/23 HELENE BOSTON [facility] A isted Exercises For ROM Assisted Exercises For ROM 92892 08/21 NICOLÁS RICHTER [facility] Physical Therapy Service Evaluation Physical Therapy Service Evaluation 29109 08/21 NICOLÁS RICHTER Fundus Photography Fundus Photography 64551 08/19 MORGAN DORMAN Scanning Computerized Ophthalmic Diagnostic Imaging Optic Nerve Scanning Computerized Ophthalmic Diagnostic Imaging Optic Nerve 01168 08/19 MORGAN DORMAN Determination Of Refractive State Determination Of Refractive State 04051 08/19 MORGAN DORMAN Spectacles Services Fitting Monofocal Except For Aphakia Spectacles Services Fitting Monofocal Except For Aphakia 04525 08/19 MORGAN DORMAN Ophthalmological New Patient Start Comprehensive Care Ophthalmological New Patient Start Comprehensive Care 41929 08/19 MORGAN DORMAN Destruct Of Premalignant Lesion By Any Method 2nd Through 14 Destruct Of Premalignant Lesion By Any Method 2nd Through 14 21678 07/22 DEMETRIO SHARMA Patient was counseled regarding [...] area until healed. -cryotherapy treatment tolerated well. [facility] Destruction Of Premalignant Lesion By Any Method One Lesion Destruction Of Premalignant Lesion By Any Method One Lesion 40515 07/22 DEMETRIO SHARMA [facility] Biopsy Skin Biopsy Skin 23487 07/22 DEMETRIO SHARMA After the patient was identified using both their full name as well as their date of the area was outlined with blue marker. Written informed consent was then obtained and a timeout was performed per [facility] protocol. The area was then anesthetizes with 1% lidocaine with epinephrine and a shave biopsy was performed. Following this hemostasis was achieved with aluminum chloride and Vaseline and a band aid were placed. Proper aftercare instructions were given. I will call with the biopsy results when they are available. [facility] Electrocardiogram Electrocardiogram 25875 07/15 MAEGAN SÁNCHEZ [facility] Measuremt Post-Voiding Resid Urine, Bladder Capacity Ultrasd Measuremt Post-Voiding Resid Urine, Bladder Capacity Ultrasd 79426 07/08 GOPAL PUCKETT PVR=0ml [facility] Psychometric Emotional / Behavioral A e ment Psychometric Emotional / Behavioral Assessment 85045 06/24 RAVEN GRUBER [facility] Health And Behav A e mt Each 15 Min Initial A e ment Health And Behav Assessmt Each 15 Min Initial Assessment 37707 06/24 RAVEN GRUBER [facility] Non-Physician Phone Call To Patient/Provider Brief (5-10min) Non-Physician Phone Call To Patient/Provider Brief (5-10min) 18285 06/17 ОЛЬГА HUMPHRIES [facility] Electrocardiogram Electrocardiogram 64655 05/21 ADIEL JACKSON [facility] Visual Rivers Test Extended Examination Visual Rivers Test Extended Examination 04239 03/07 BERTHA PERALTA [facility] Physical Therapy Education Orthotics Training Initial 15 Min 01/19 TK RAMOS [facility] Wound Care Debridement Selective (Up To 20 square cm) 01/19 TK RAMOS [facility] Orthopedic Splinting Of Finger Orthopedic Splinting Of Finger 38552 01/19 TK RAMOS [facility] Occupational Therapy Evaluation Occupational Therapy Evaluation 99667 01/19 TK RAMOS [facility] Continuous ECG Holter Monitor 12/14 PIOTR MENDEZ [facility] Electrocardiogram Electrocardiogram 68024 11/03 FARZANEH CASTRO [facility] External Ocular Photography External Ocular Photography 73272 10/26 TK MANDUJANO [facility] Ophthalmological Prior Patient Start Intermediate Level Care Ophthalmological Prior Patient Start Intermediate Level Care 00308 10/26 TK MANDUJANO [facility] Ophthalmological New Patient Start Intermediate Level Care Ophthalmological New Patient Start Intermediate Level Care 85168 09/23 MAURICE FREDERICK [facility] Cardiac Stre Test With Physician Supervision, Interpretation, And Report Cardiac Stress Test With Physician Supervision, Interpretation, And Report 93971 09/22 KIAH CURTIS Christiane [facility] Echo Congenital Cardiac Defects Transthoracic W/ M-Mode, Spectral, & Color Flow Echo Congenital Cardiac Defects Transthoracic W/ M-Mode, Spectral, & Color Flow 07633 09/06 FRANCES PALMER [facility] Electrocardiogram Electrocardiogram 46123 09/06 FARZANEH CASTRO [facility] Scanning Computerized Ophthalmic Diagnostic Imaging Optic Nerve Scanning Computerized Ophthalmic Diagnostic Imaging Optic Nerve 21511 08/25 BERTHA PERALTA Visual Rivers Test Extended Examination Visual Rivers Test Extended Examination 57316 08/25 BERTHA PERALTA Ophthalmological Prior Patient Start Intermediate Level Care Ophthalmological Prior Patient Start Intermediate Level Care 21502 08/25 BERTHA PERALTA Biopsy Skin Each Additional Lesion Biopsy Skin Each Additional Lesion 32021 08/03 VICTORIANO DESHPANDE Biopsy Skin Biopsy Skin 37926 08/03 VICTORIANO DESHPANDE ~PROCEDURE: SHAVE BIOPSY.~ ~LOCATION(S): A-upper back b- mid back ~UNIVERSAL [employer]OT[employer]OL REQUIREMENTS WERE MET PER [facility] INSTRUCTION 6320.4B.~ ~CONSENT OBTAINED AND FORM [...] PROCEDURE WELL AND LEFT IN STABLE CONDITION.~ [facility] Determination Of Refractive State Determination Of Refractive State 34134 07/29 BERTHA PERALTA Ophthalmological New Patient Start Comprehensive Care Ophthalmological New Patient Start Comprehensive Care 85304 07/29 BERTHA PERALTA Ultrasonic Guidance For Needle Biopsy Ultrasonic Guidance For Needle Biopsy 68447 07/05 RICARDO SANTILLAN [facility] Arthrocentesis Injection Of Acromioclavicular Joint Arthrocentesis Injection Of Acromioclavicular Joint 5557307/05 DE KING, RICARDO D After vebal consent about risks of bleeding, infection, bruise, steroid atrophy; and after sterile prep; and under realtime US guidance, I injected right AC jt with 1.5cc 1% lido with 20mg Kenalog. Needle entered jt space immediately, no contact w/ bony surfact. Pt tolerated procedure well, no complications. [facility] Non-Physician Phone Call To Patient/Provider Brief (5-10min) Non-Physician Phone Call To Patient/Provider Brief (5-10min) 39210 01/25 MARY STEIN [facility] Arthrocentesis Aspiration Of Intermediate Joint Arthrocentesis Aspiration Of Intermediate Joint 10/23 ARON RAMON Ultrasound Extremity, Nonvascular 10/23 ARON RAMON Echocardiogram Doppler Echocardiogram Doppler 64740 10/12 CIARRA HOUSE Echocardiogram Doppler Color Flow Velocity Mapping Echocardiogram Doppler Color Flow Velocity Mapping 77561 10/12 CIARRA HOUSE Echo (2-D) Mode Complete 10/12 [facility]SE Electrocardiogram Electrocardiogram 26200 09/30 MAEGAN SÁNCHEZ [facility] Non-Physician Phone Call To Patient/Provider Brief (5-10min) Non-Physician Phone Call To Patient/Provider Brief (5-10min) 39373 ABDULKADIR GRIFFIN [facility] Physical Therapy Service Re-Evaluation Physical Therapy Service Re-Evaluation 93759 09/23 MENDEZ DAVIS [facility] Modalities Iontophoresis Modalities Iontophoresis 55925 07/27 TK ALAMO Physical Therapy Mobilization Joint Physical Therapy Mobilization Joint 53409 07/27 TK ALAMO [facility] Physical Therapy: ___ Se ion Segments, 15 Minutes Each Physical Therapy: ___ Session Segments, 15 Minutes Each 36309 07/27 TK ALAMO [facility] Physical Therapy Mobilization Joint Physical Therapy Mobilization Joint 99698 07/21 CHASIDY CESPEDES [facility] Modalities Iontophoresis Modalities Iontophoresis 01505 07/21 CHASIDY CESPEDES [facility] Physical Therapy: ___ Se ion Segments, 15 Minutes Each Physical Therapy: ___ Session Segments, 15 Minutes Each 01916 07/21 CHASIDY CESPEDES [facility] Physical Therapy: ___ Se ion Segments, 15 Minutes Each Physical Therapy: ___ Session Segments, 15 Minutes Each 12859 07/16 MENDEZ DAVIS Performed 10 min of exercise education on cable system as stated above [facility] Physical Therapy Service Re-Evaluation Physical Therapy Service Re-Evaluation 77808 07/16 MENDEZ DAVIS DoD Modalities Iontophoresis Modalities Iontophoresis 20411 07/02 PHAAUSTINAMARAOLBety [facility] Physical Therapy Mobilization Joint Physical Therapy Mobilization Joint 26305 07/02 PHAMYRANYA NACOLN [facility] Physical Therapy: ___ Se ion Segments, 15 Minutes Each Physical Therapy: ___ Session Segments, 15 Minutes Each 80659 07/02 PHAAUSTINA, MARAOLBety [facility] Physical Therapy Mobilization Joint Physical Therapy Mobilization Joint 99255 06/29 TONI JORDAN [facility] Modalities Iontophoresis Modalities Iontophoresis 12316 06/29 TONI JORDAN Physical Therapy: ___ Se ion Segments, 15 Minutes Each Physical Therapy: ___ Session Segments, 15 Minutes Each 49931 06/29 TONI JORDAN [facility] Modalities Iontophoresis Modalities Iontophoresis 40275 06/26 PHAIPANYA, NACOLBety [facility] Physical Therapy Mobilization Joint Physical Therapy Mobilization Joint 12290 06/26 [facility] NACOLBety [facility] Physical Therapy: ___ Se ion Segments, 15 Minutes Each Physical Therapy: ___ Session Segments, 15 Minutes Each 36650 06/26 PHAMYRANYA, CHASIDY [facility] Modalities Iontophoresis Modalities Iontophoresis 28336 06/23 PHAMYRANYA, NACOLN [facility] Physical Therapy Mobilization Joint Physical Therapy Mobilization Joint 23770 06/23 PHAIPANYA NACOLN [facility] Physical Therapy: ___ Se ion Segments, 15 Minutes Each Physical Therapy: ___ Session Segments, 15 Minutes Each 23447 06/23 PHAIPANYA, NACOLN [facility] Physical Therapy Mobilization Joint Physical Therapy Mobilization Joint 13414 06/18 TONI JORDAN Modalities Iontophoresis Modalities Iontophoresis 85363 06/18 TONI JORDAN SEATED: [facility] Physical Therapy: ___ Se ion Segments, 15 Minutes Each Physical Therapy: ___ Session Segments, 15 Minutes Each 47614 06/18 TONI JORDAN Physical Therapy: ___ Se ion Segments, 15 Minutes Each Physical Therapy: ___ Session Segments, 15 Minutes Each 62849 06/15 MENDEZ DAVIS Physical Therapy Service Evaluation Physical Therapy Service Evaluation 94918 06/15 MENDEZ DAVIS Visual Rivers Test Extended Examination Visual Rivers Test Extended Examination 94432 05/28 HELENE WADE Determination Of Refractive State Determination Of Refractive State 77592 05/28 HELENE WADE RX given, see scanned notes DoD Ophthalmological Prior Patient Start Comprehensive Care Ophthalmological Prior Patient Start Comprehensive Care 16565 05/28 HELENE WADE Optical Coherence Tomography 12/08 JOSE ROBERTS Corneal Pachymetry Both Eyes Corneal Pachymetry Both Eyes 14074 12/08 JOSE ROBERTS Visual Rivers Test Extended Examination Visual Rivers Test Extended Examination 43152 12/08 JOSE ROBERTS Ophthalmoscopy Extended, With Retinal Drawing - Initial Ophthalmoscopy Extended, With Retinal Drawing - Initial 99414 12/08 JOSE ROBERTS Ophthalmological Prior Patient Start Comprehensive Care Ophthalmological Prior Patient Start Comprehensive Care 22343 12/08 JOSE ROBERTS ECG Performance of Tracing Only ECG Performance of Tracing Only 01392 11/06 MARQUIS [place] Basic Metabolic Panel With Total Calcium 11/06 [place] CBC With Manual Differential CBC With Manual Differential 51074 11/06 [place] Corneal Pachymetry Both Eyes Corneal Pachymetry Both Eyes 51155 10/31 BURTON RECINOS Visual Rivers Test Extended Examination Visual Rivers Test Extended Examination 96679 10/31 BURTON RECINOS Ophthalmological Prior Patient Start Intermediate Level Care Ophthalmological Prior Patient Start Intermediate Level Care 18427 10/31 BURTON RECINOS Fundoscopic Exam Extensive Follow-up Exam Fundoscopic Exam Extensive Follow-up Exam 30946 09/30 BURTON RECINOS Corneal Pachymetry Both Eyes Corneal Pachymetry Both Eyes 60699 09/30 BURTON RECINOS Ophthalmological Prior Patient Start Comprehensive Care Ophthalmological Prior Patient Start Comprehensive Care 22313 09/30 BURTON RECINOS Fundoscopic Exam Extensive Initial Exam Fundoscopic Exam Extensive Initial Exam 79166 09/19 MELMACEY Pearson Naomi Slit Lamp Examination Slit Lamp Examination 23677 09/19 MACEY POPE Electrocardiogram Electrocardiogram 86517 08/12 LETICIA MARIN Naomi Comprehensive Audiometry Comprehensive Audiometry 79573 08/12 SRI CARRASCO Acoustic Reflex Testing 08/12 SRI CARRASCO Tympanometry Tympanometry 47519 08/12 SRI CARRASCO Evoked Otoacoustic Dania ions [...] Additional Lesion Biopsy Skin Each Additional Lesion 91210 07/30 SARAH MANE Biopsy Skin Biopsy Skin 65752 07/30 SARAH MANE Ophthalmological Sensorimotor Exam Ophthalmological Sensorimotor Exam 68939 03/18 PADMINI KING Ophthalmological Prior Patient Start Comprehensive Care Ophthalmological Prior Patient Start Comprehensive Care 11020 03/18 PADMINI KING Spectacles Services Fitting Bifocal Except For Aphakia Spectacles Services Fitting Bifocal Except For Aphakia 35887 12/23 ARTHUR MONROY Determination Of Refractive State Determination Of Refractive State 76605 12/23 ARTHUR MONROY Ophthalmological Prior Patient Start Intermediate Level Care Ophthalmological Prior Patient Start Intermediate Level Care 23751 12/23 ARTHUR MONROY Cardiac Catheterization Angiography Cardiac Coronary Cardiac Catheterization Angiography Cardiac Coronary 47143 11/13 MORGAN TEIXEIRA Catheterization Of Artery Of Extremity Catheterization Of Artery Of Extremity 88999 11/13 MORGAN TEIXEIRA I Naomi Cardiac Cath Postoperative Coronary Angiography Left Heart Ventriculography Cardiac Cath Postoperative Coronary Angiography Left Heart Ventriculography 70801 11/13 TEIXEIRA MORGAN Laurent Naomi Cardiac Catheterization Angiography Cardiac Catheterization Angiography 87127 11/13 TEIXEIRA, MORGAN Laurent Naomi Health Maint. Unlisted [facility]ive [facility] 65325 11/13 TEIXEIRA, MORGAN Laurent Naomi Combined Right And Left Heart Catheterization W Retrograde Left Heart Catheteriz Combined Right And Left Heart Catheterization W Retrograde Left Heart Catheteriz 19923 11/13 TEIXEIRA, MORGAN Laurent Naomi Electrocardiogram Electrocardiogram 80547 11/05 JOSE CARTER Optical Coherence Tomography 10/31 TK WESTON Ophthalmological New Patient Start Comprehensive Care Ophthalmological New Patient Start Comprehensive Care 22848 10/31 TK WESTON Determination Of Refractive State Determination Of Refractive State 32056 10/31 TK WESTON Spectacles Services Fitting Bifocal Except For Aphakia Spectacles Services Fitting Bifocal Except For Aphakia 69901 10/31 TK WESTON Spectacles Services Fitting Monofocal Except For Aphakia Spectacles Services Fitting Monofocal Except For Aphakia 34369 10/31 TK WESTON Fundoscopic Exam Extensive Initial Exam Fundoscopic Exam Extensive Initial Exam 07180 10/24 JOSE ROBERTS Ophthalmological New Patient Start Comprehensive Care Ophthalmological New Patient Start Comprehensive Care 83577 10/24 JOSE ROBERTS Transrectal Sonogram of Prostate Transrectal Sonogram of Prostate 24011 09/16 DANIEL LAM Ultrasonic Guidance For Needle Biopsy Ultrasonic Guidance For Needle Biopsy 38325 09/16 DANIEL LAM Needle Biopsy Of Prostate Needle Biopsy Of Prostate 72011 09/16 DANIEL LAM EMG Of One Extremity With Related Paraspinal Areas EMG Of One Extremity With Related Paraspinal Areas 80480 08/12 WENDY HALL NCS Right Ulnar Nerve Motor Function NCS Right Ulnar Nerve Motor Function 28685 08/12 WENDY HALL NCS Right Ulnar Nerve Sensory Function (Orthodromic) NCS Right Ulnar Nerve Sensory Function (Orthodromic) 99075 08/12 WENDY HALL NCS Right Median Nerve Motor Function NCS Right Median Nerve Motor Function 66540 08/12 WENDY HALL [facility] NCS Right Median Nerve Sensory Function (Orthodromic) NCS Right Median Nerve Sensory Function (Orthodromic) 80818 08/12 WENDY HALL Disease management program, follow-up/kodak e ment 07/29 ALEXX JORDAN Telephone calls by a registered nurse to a disease management program member for monitoring purposes; per month 07/29 ALEXX JORDAN Nursing a e ment/evaluation 07/29 ALEXX JORDAN Patient Counseling Medical Management Individual Patient Patient Counseling Medical Management Individual Patient 96195 07/29 ALEXX JORDAN Patient Training And Self-Care Skills Patient Training And Self-Care Skills 92477 07/29 ALEXX JORDAN Fluoroscopic Guidance/Localiz Of Needle For Spinal Injection 07/22 JOSE RUVALCABA Corticosteroid Inj Interlaminar Cervical C7 - T1 07/22 JOSE RUVALCABA Echo (2-D) Mode Complete 07/15 MORGAN TEIXEIRA Echocardiogram Doppler Color Flow Velocity Mapping Echocardiogram Doppler Color Flow Velocity Mapping 53276 07/15 MORGAN TEIXEIRA Echocardiogram Doppler Echocardiogram Doppler 61233 07/15 MORGAN TEIXEIRA Disease management program, follow-up/kodak e ment 07/02 ALEXX JORDAN Telephone calls by a registered nurse to a disease management program member for monitoring purposes; per month 07/02 ALEXX JORDAN Nursing a e ment/evaluation 07/02 ALEXX JORDAN Patient Counseling Medical Management Individual Patient Patient Counseling Medical Management Individual Patient 17625 07/02 ALEXX JORDAN Patient Training And Self-Care Skills Patient Training And Self-Care Skills 80907 07/02 ALEXX JORDAN Injection Of Trigger Point(s) One Or Two Muscle Group(s) Injection Of Trigger Point(s) One Or Two Muscle Group(s) 78115 07/01 GISELLA COTTRELL [facility] Electrocardiogram Electrocardiogram 94420 05/21 GABRIELA PAEZ [facility] No data available for this section Ambulato ry Pharmacy Social History Combined list of available smoking, tobacco, and other social history from [facility] and [facility] facilities. Social History Type Response Date Comment Sourc e Tobacco smoking status NHIS VA-TOBACCO USER EVERY DAY 12/29/2022 [facility] History of tobacco use VA-TOBACCO DOESNT USE WI 30 MIN WAKEUP 12/29/2022 [facility] History of tobacco use [place]-TO[place]ACCO NEVER USED 01/01/2022 [facility] History of tobacco use VA-TOBACCO USER EVERY DAY 12/17/2020 [facility] History of tobacco use LIFETIME NON-TOBACCO USER 09/20/2017 [facility] History of tobacco use LIFETIME NON-TOBACCO USER 04/29/2015 [facility] This section is an empty social history section. DoD Assessment and Plan Combined list of future care activities from [facility] and [facility] facilities (e.g., assessment and plan notes, appointments, orders, and referrals). Additional future care activities may be listed in the Plan of Care section. Result Assessment and Plan Date Source Assessment and Plan No data available for this section 04/29/2025 Ambulatory Pharmacy Functional Status Combined list of recent functional and cognitive assessments recorded at [facility] [place] Functional [place] Measurement (FIM) Scale: 1 = Total Assistance (Subject = 0% +), 2 = Maximal Assistance (Subject = 25% +), 3 = Moderate Assistance (Subject = 50% +), 4 = Minimal Assistance (Subject = 75% +), 5 = Supervision, 6 = Modified [place] (Device), 7 = Complete [place] (Timely, Safely). Assessment Date/Time Source Assessment Type Assessment Skill Assessment Score Assessment Details No data available for this section
--- OUTSIDE RECORDS SUMMARY | 2025-04-28 20:36 | XMS_ITS | Clinical Summary ---
Author Organization [facility] Address [address] [place] [address] Phone Care Team Providers Care Mental Health Associate Name Role Phone Provider, None Primary Care [...] on file Legal Sex Male 1:12 PM ISO COORDINATOR Gender Identity Not on file Sexual Orientation Not on file Last Filed Vital Signs Vital Sign Reading Time Taken Comments Blood Pressure 147/80 11/27/2016 1:24 PM ISO COORDINATOR Pulse 72 11/27/2016 1:24 PM ISO COORDINATOR Temperature 36.8 C (98.3 F) 11/27/2016 1:24 PM ISO COORDINATOR Respiratory Rate 16 11/27/2016 1:24 PM ISO COORDINATOR Oxygen Saturation 96% 11/27/2016 1:24 PM ISO COORDINATOR Inhaled Oxygen Concentration - - Weight 90.7 kg (200 lb) 11/27/2016 1:24 PM ISO COORDINATOR Height 185.4 cm (6' 1) 11/27/2016 1:24 PM ISO COORDINATOR Body Mass Index 26.39 11/27/2016 1:24 PM ISO COORDINATOR Plan of Treatment Health Maintenance Due Date [...] age to complete this topic Care Teams Mental Health Associate Relationship Specialty Start Date End Date Provider, None [place] PCP - General 11/27/16
--- OUTSIDE RECORDS SUMMARY | 2025-04-28 20:36 | XMS_ITS | Encounter Summary ---
Author Organization [facility] Healthcare Address [address] [place] [address] Care Team Providers Care Pantographer Name Role Phone Keagan Saldana MD Primary Care Provider [phone] Mikel Villeda MD Unavailable [phone] Alan Medina MD Unavailable [phone] Wali Boyce MD Unavailable [phone] Antonio Reddy MD Unavailable [phone] Andrea Sam MD Unavailable [phone] Encounter Details Date Type Department Care Team (Late st Contact Info) Description 07/07/2023 1:23 PM CDT Hospital Encounter [facility] [address] [address] Social History Tobacco Use Types [...] COVID: Suspected 10/10/2024 10/10/2024 10/10/2024 7:33 PM BATH HOUSE ATTENDANT COVID19 10/10/2024 10/10/2024 10/20/2024 3:05 AM BATH HOUSE ATTENDANT COVID: Recovered Comment:Added based on recent COVID infection. 10/20/2024 10/23/2024 01/18/2025 3:05 AM C DT documented as of this encounter Care Teams Pantographer Relationship Specialty Start Date End Date Keagan Saldana MD [address] [place] [address] PCP - General Family Medicine 11/05/20 Mikel Villeda MD [address] [place] [address] Surgeon Plastic Surgery 11/23/21 Alan Medina MD [address] [place] [address] Collaborative Physician Cardiology 11/23/21 Wail Boyce MD [address] [place] [address] Urologist Urology 11/23/21 Antonio Reddy MD [address] [place] [address] Urologist Urology 11/23/21 Andrea Sam MD [address] [place] [address] [place] [address] Central Office Installer Gastroenterology 11/23/21 documented as of this encounter
--- OUTSIDE RECORDS SUMMARY | 2025-04-28 20:37 | XMS_ITS | Referral Summary ---
Author Organization [facility] Medical [facility] 1 Address [address] [place] [address] Care Team Providers Care Clinical Documentation Developer Name Role Phone Keagan Saldana MD Primary Care Provider [phone] Mikel Villeda MD Unavailable [phone] Alan Medina MD Unavailable [phone] Wali Boyce MD Unavailable [phone] Antonio Reddy MD Unavailable [phone] Andrea Sam MD Unavailable [phone] Sony Marina MD PhD Unavailable [phone] Luther Cameron MD Unavailable [phone] Encounters Date Type Department Care Team Description 04/26/2025 Telephone [facility] Surgery [address] [place] [phone] Yudith Jones 04/26/2025 Telephone Family Physicians [facility] [address] [place] [address] Keagan Saldana MD Symptom Based Call 04/26/2025 ISABEL ED Outreach [facility] Accountable Care Organization [address] [place] [phone] Gillian Lee MA 04/24/2025 10:33 PM CDT - 04/25/2025 3:13 AM CDT Emergency [facility] Emergency Department [address] [place] [address] Bob Ríos MD Abdominal pain (Primary Dx); Urinary problem in male Discharge Disposition: Discharge to home or self care 04/19/2025 ISABEL IP Outreach [address] [address] Barb Colon LPN 04/18/2025 Orders Only [facility] [address] [facility] Office Building [address] [place] [address] Elmer Boyce MD Prostate cancer (HCC) (Primary Dx) 04/17/2025 6:31 AM CDT - 04/18/2025 12:58 PM CDT Hospital Encounter [address] [phone] Elmer Boyce MD Prostate cancer (HCC) Discharge Disposition: Discharge to home or self care 04/17/2025 8:30 AM CDT - 04/17/2025 12:30 PM CDT Surgery [facility] Operating Room [address] [place] [phone] Elmer Boyce MD XI PROSTATECTOMY - LAPAROSCOPIC ROBOTIC ASSISTED 04/17/2025 8:30 AM CDT Anesthesia Event [facility] Operating Room [address] [place] [phone] Deisy Etienne MD Kraenzle, Elliott 04/03/2025 10:30 AM CDT Pre-Admission Testing [facility]operative [facility] [address] [place], [place] [phone] Preoperative testing (Primary Dx); Urination frequency 02/15/2025 Results Follow-Up [facility] [address] [place] [address] Office Building [address] [place] [address] Elmer Boyce MD PET/CT Prostate Cancer PSMA Skull to Thigh 02/14/2025 12:39 PM CDT - 02/14/2025 11:59 PM CDT Hospital Encounter [facility] [address] Floor 8 [place], [place] [phone] Discharge Disposition: Discharge to home or self care 02/14/2025 12:38 PM CDT - 02/14/2025 11:59 PM CDT Hospital Encounter [facility] - PET [address] Floor [address] [place], [place] [phone] Prostate cancer (HCC) Discharge Disposition: Discharge to home or self care 02/07/2025 Results Follow-Up [facility] at [address] [phone] Feliz Floyd NP XR Chest Pa Lateral 2 Views 02/07/2025 10:35 AM CDT Ancillary Procedure [facility] Imaging at [address] [phone] Acute cough 02/04/2025 Telephone [facility] Urology [id number] [place], [place] [address] Medical Office Building 1 [place] [address] Luther Cameron MD 02/02/2025 11:00 AM CDT Office Visit [facility] at [address] [phone] Radha Walton NP Acute cough (Primary Dx) 02/01/2025 Orders Only [facility] [address] [facility] Medical Office Building [address] [place] [address] Elmer Boyce MD Prostate cancer (HCC) (Primary Dx) 02/01/2025 Orders Only [facility] [address] [facility] Medical Office Building [address] [place] [address] Elmer Boyce MD 02/01/2025 Telephone [facility] Surgery [address] [place] [address], [place] [address] Gwen Kay EMT 02/01/2025 10:00 AM CDT Consult [facility] Radiation Oncology [address] [place] [address] Sony Marina MD PhD Prostate cancer (HCC) (Primary Dx); Malignant neoplasm of prostate (HCC) 01/31/2025 10:20 AM CDT Office Visit [facility] [address] [facility] Medical Office Building [address] [place] [address] Elmer Boyce MD Prostate cancer (HCC) (Primary [...] 11/04/2023 Assessment & Plan (11/04/2023 10:57 AM PATIENT APPOINTMENT COORDINATOR): Pepcid 40 mg at bedtime Esophagram Dermatochalasis [...] 06/29/2023 Assessment & Plan (11/04/2023 10:56 AM PATIENT APPOINTMENT COORDINATOR): Pepcid 40 mg at bedtime Esophagram Neck [...] anxiety Assessment & Plan (11/24/2022 2:09 PM PATIENT APPOINTMENT COORDINATOR): Generally well controlled, though occasionally has episodes, [...] pain Assessment & Plan (11/24/2022 2:11 PM PATIENT APPOINTMENT COORDINATOR): Has joint pain in multiple sites; notes [...] (09/09/2022): Added automatically from request for surgery [id number] Seasonal allergic rhinitis due to pollen 022 Assessment & Plan (07/26/2022 10:58 AM CDT): Nasal saline spray (Simply saline, Little Remedies, Waterproof, [place]) 2 second sprays or 2 squeezes into [...] Nasal saline spray (Simply saline, Little Remedies, Waterproof, [place]) 2 second sprays or 2 squeezes into [...] 07/26/2022 Assessment & Plan (11/04/2023 10:56 AM PATIENT APPOINTMENT COORDINATOR): Pepcid 40 mg at bedtime Esophagram Laryngopharyngeal reflux discussed and Handout provided Assessment & Plan (07/26/2022 11:00 AM CDT): Call if no improvement for trial of Pepcid LPR discussed and Handout provided Dupuytren's contracture of left hand 11/17/2021 Overview (11/17/2021): Added automatically from request for surgery [id number] History of colonic polyps 03/11/2021 Overview (03/11/2021): Added automatically from request for surgery [id number] S/P cervical spinal fusion 02/03/2021 Assessment & [...] nodules Assessment & Plan (11/05/2020 9:46 AM PATIENT APPOINTMENT COORDINATOR): Seen on CTA for monitoring thoracic aortic aneurysm -continue to monitor, stable in size -no history of tobacco use, no pulmonary symptoms. BPH (benign prostatic hyperplasia) 06/19/2020 Overview (06/19/2020): Added automatically from request for surgery [id number] Assessment & Plan (06/19/2024 2:15 PM CDT): [...] b.i.d. Assessment & Plan (11/24/2022 2:09 PM PATIENT APPOINTMENT COORDINATOR): Stable, well controlled; good flow with urination; [...] daily Assessment & Plan (11/24/2022 2:07 PM PATIENT APPOINTMENT COORDINATOR): Stable, well controlled; blood pressure at target [...] medicine Assessment & Plan (11/09/2021 8:25 PM PATIENT APPOINTMENT COORDINATOR): Blood pressure at target today, no signs or symptoms of hypotention Continue lisinopril 2.5 mg daily Assessment & Plan (05/06/2021 10:54 AM CDT): Stable, well controlled, continue lisinopril 2.5 mg Assessment & Plan (11/05/2020 9:43 AM PATIENT APPOINTMENT COORDINATOR): Well controlled, bp at target today though [...] dose. Assessment & Plan (11/05/2020 9:42 AM PATIENT APPOINTMENT COORDINATOR): Well controlled with Lexapro 20 mg; will [...] diet Assessment & Plan (11/24/2022 2:07 PM PATIENT APPOINTMENT COORDINATOR): Stable, well controlled; continue atorvastatin 20 mg [...] therapy Assessment & Plan (11/05/2020 9:42 AM PATIENT APPOINTMENT COORDINATOR): Stable, tolearting statin therapy well -continue atorvastatin [...] PM CDT): Stable, well controlled; follows with [facility] Continue to monitor for any changes [...] with Urology, continue to monitor PSA Biopsy [place] 6, patient in active surveillance of prostate cancer Assessment & Plan (02/03/2021 3:55 PM CDT): Briefly reviewed results of biopsy with patient, patient to follow-up with urology for further recommendations Assessment & Plan (11/05/2020 9:41 AM PATIENT APPOINTMENT COORDINATOR): Stable, following with urology for management -patient [...] on file Medical Devices Implanted Type Area Image Archivist Device Identifier Shelf Expiration Date Model / Serial / Lot Plate Plate Cervical-Th oracic Spine Description:Plate x 5 Screw Screw Cervical-Th oracic Spine Description:Screw x 10 [employer] [id number] Urolift Implant Urological - [id number] Implanted:Qty: 3 on 07/24/2020 by Luther Cameron MD at [facility] N/A: Urethra [employer] 09/02/2021 [id number] / / [id number] [employer] Ortholoc 47mm 3di Fusion Low Profile Compression Slot Foot Right [id number] - [id number] Implanted:Qty: 1 on 09/02/2023 by Marcello Storey Jr., MD at [facility] Right: First Toe [employer] [id number] / / [employer] Ortholoc 3di 3.5mm 38mm Low Profile Self Tapping Threaded [id number] - [id number] Implanted:Qty: 1 on 09/02/2023 by Marcello Storey Jr., MD at [facility] Right: First Toe [employer] [id number] / / Cardiovascular Provider [employer] Ortholoc 3.5mm 2.8mm 16mm Lock On [place] Polyaxial Self Tap Midfoot [id number] - [id number] Implanted:Qty: 2 on 09/02/2023 by Marcello Storey Jr., MD at [facility] Right: First Toe [employer] [id number] / / Cardiovascular Provider [employer] Ortholoc 3.5mm 2.5mm 26mm Low Profile Head Self Tap Midfoot [id number] - [id number] Implanted:Qty: 1 on 09/02/2023 by Marcello Storey Jr., MD at [facility] Right: First Toe [employer] [id number] / / [employer] Ortholoc 3.5mm 2.8mm 18mm Lock On [place] Polyaxial Self Tap Midfoot [id number] - [id number] Implanted:Qty: 1 on 09/02/2023 by Marcello Storey Jr., MD at [facility] Right: First Toe [employer] [id number] / / Cardiovascular Provider [employer] Ortholoc 3.5mm 2.5mm 20mm Low Profile Head Self Tap Midfoot [id number] - [id number] Implanted:Qty: 1 on 09/02/2023 by Marcello Storey Jr., MD at [facility] Right: First Toe [employer] [id number] / / Procedures Procedure Name Priority Date/Time [...] 12 :13 PM CDT Prostate cancer (HCC) WI AN PROCEDURE PLACEHOLDER Routine 04/17/2025 8:59 AM CDT WI AN ELECTIVE ENDOTRACHEAL AIRWAY Routine 04/17/2025 8:59 [...] cough PSA DIAGNOSTIC Routine 11/26/2024 11:57 AM PATIENT APPOINTMENT COORDINATOR Hypogonadism in male Prostate cancer (HCC) COLONOSCOPY 08/16/2024 11:00 AM PATIENT APPOINTMENT COORDINATOR HEPATITIS C ANTIBODY Routine 11/05/2020 9:30 AM PATIENT APPOINTMENT COORDINATOR Encounter to establish care from Last 3 Months or Most Recently Relevant to Health Maintenance Results * (ABNORMAL) Urinalysis reflex to microscopic and culture Urine (04/25/2025 1:51 AM CDT) Color, ur Yellow Yellow Clarity, ur Clear Clear [facility] Specific gravity, ur 1.022 1.003 - 1.030 [facility] pH, urine 6.0 [facility] Comment: Interpretive Data U rine pH is affected by diet, medications, systemic acid-base disturbances, and renal tubular function. pH may affect urinary stone formation. For example, urine pH below 6.0 may help reduce the tendency for calcium phosphate stones and pH greater than 6.0 may reduce the tendency for uric acid stone formation. Source: [facility] Current Interpretive Data was last revised on 2017 Protein, ur ql Negative Negative [facility] Glucose, ur ql Negative Negative [facility] Ketones, ur Negative Negative [facility] Bilirubin, ur Negative Negative [facility] Blood, ur 3+(A) Negative [facility] Urobilinogen, ur <2.0 <2.0 mg/dL [facility] Nitrite, ur Negative Negative [facility] Leukocyte esterase, ur 1+(A) Negative [facility] UA reflex comment Reflex to microscopic UA will be performed. [facility] Urine 04/25/2025 1:51 AM CDT 04/25/2025 1:56 AM CDT Bay Rawls MD LAB MICROBIOLOGY - [facility] ORDERABLES Final Result [facility] Department [place] [address] * (ABNORMAL) Urinalysis, microscopic only (04/25/2025 1:51 AM CDT) WBC, ur 21-50(A) 0 - 5 /HPF RBC, ur 6-10(A) 0 - 2 /HPF [facility] Epithelial cells, squamous, ur 1-5 0 - 5 /HPF [facility] Epithelial cells, transitional, ur 1-5 0 - 0 /HPF [facility] Bacteria, ur Trace(A) [facility] Mucous, ur Present(A) [facility] Hyaline casts, ur 1-5 0 - 10 /LPF [facility] Culture Reflex Comment Reflex to urine culture will be performed. [facility] Urine 04/25/2025 1:51 AM CDT 04/25/2025 1:56 AM CDT Bay Rawls MD LAB URINE ORDERABLES Fi nal Result Performing Organization Address [facility] Co de Phone Number [facility] [place] [address] * Urine culture Urine (04/25/2025 1:51 AM CDT) Report Final Report: No growth Urine 04/25/2025 1:51 AM CDT 04/25/2025 4:07 AM CDT Narrative [facility] - 04/26/2025 6:55 AM CDT Urine culture reflexed based upon urinalysis results. Testing performed by [facility] Microbiology Laboratory ([phone]) Bay Rawls MD LAB MICROBIOLOGY - GENE RAL ORDERABLES Final Result Performing Organization Address [facility] Co de Phone Number [facility] Department [place] [address] * (ABNORMAL) eGFR (04/24/2025 11:54 PM CDT) [...] LAB BLOOD ORDERABLES Fi nal Result [facility] [place] [address] * (ABNORMAL) Differential, auto (04/24/2025 11:54 PM CDT) Neutrophil abs 12.16(H) 1.50 - 6.50 K/cumm Imm gran abs 0.07 0.00 - 0.10 K/cumm [facility] Lymphocyte abs 1.06 0.80 - 3.30 K/cumm [facility] Monocyte abs 0.73 0.20 - 0.80 K/cumm [facility] Eosinophil abs 0.46 0.00 - 0.50 K/cumm [facility] Basophil abs 0.04 0.00 - 0.10 K/cumm [facility] Neutrophil pct 83.7 % [facility] Comment: Interpretive Data Percent cell count reference ranges are not reported, since discordance with absolute values may lead to misinterpretation of CBC data. Current Interpretive Data was last revised on 2018. Imm gran pct 0.5 % [facility] Comment: Interpretive Data Percent cell count reference ranges are not reported, since discordance with absolute values may lead to misinterpretation of CBC data. Current Interpretive Data was last revised on 2018. Lymphocyte pct 7.3 % [facility] Comment: Interpretive Data Percent cell count reference ranges are not reported, since discordance with absolute values may lead to misinterpretation of CBC data. Current Interpretive Data was last revised on 2018. Monocyte pct 5.0 % [facility] Comment: Interpretive Data Percent cell count reference ranges are not reported, since discordance with absolute values may lead to misinterpretation of CBC data. Current Interpretive Data was last revised on 2018. Eosinophil pct 3.2 % [facility] Comment: Interpretive Data Percent cell count reference ranges are not reported, since discordance with absolute values may lead to misinterpretation of CBC data. Current Interpretive Data was last revised on 2018. Basophil pct 0.3 % [facility] Comment: Interpretive Data Percent cell count reference ranges are not reported, since discordance with absolute values may lead to misinterpretation of CBC data. Current Interpretive Data was last revised on 2018. Blood 04/24/2025 11:5 4 PM CDT 04/25/2025 12:06 AM CDT us Bay Rawls MD LAB BLOOD ORDERABLES Fi nal Result [facility] Department [place] [address] * (ABNORMAL) CBC with auto differential (04/24/2025 11:54 PM CDT) WBC 14.52(H) 3.80 - 9.90 K/cumm Hgb 12.4(L) 13.0 - 17.5 g/dL [facility] Hct 36.7(L) 38.9 - 50.3 % [facility] Plt 264 150 - 400 K/cumm [facility] MPV 10.6 9.1 - 12.3 fL [facility] RBC 4.04(L) 4.30 - 5.80 M/cumm [facility] MCV 90.8 81.3 - 96.4 fL [facility] MCH 30.7 27.1 - 33.3 pg [facility] MCHC 33.8 32.3 - 35.7 g/dL [facility] RDW CV 13.6 11.1 - 14.9 % [facility] RDW SD 44.1 35.7 - 48.1 fL [facility] NRBC abs 0.00 0.00 - 0.01 K/cumm [facility] Blood 04/24/2025 11:5 4 PM CDT 04/25/2025 12:06 AM CDT Bay Rawls MD LAB BLOOD ORDERABLES Fi nal Result Performing Organization Address [facility] Co de Phone Number [facility] [place] [address] * Protime-INR (04/24/2025 11:54 PM CDT) [facility] PT 12.5 9.7 - 13.0 sec INR 1.15 0.90 - 1.20 [facility] Comment: Interpretive data Oral anticoagulant [...] ORDERABLES Fi nal Result Performing Organization Address [facility] [place] [address] * (ABNORMAL) Lipase (04/24/2025 11:54 PM CDT) [facility] Lipase 9(L) 10 - 99 Units/L Blood 04/24/2025 11:5 4 PM CDT 04/25/2025 12:07 AM CDT Bay Rawls MD LAB BLOOD ORDERABLES Fi nal Result Performing Organization Address [facility] [place] [address] * (ABNORMAL) Comprehensive metabolic panel (04/24/2025 11:54 PM CDT) Sodium 137 135 - 145 mmol/L Potassium, pl 4.2 3.3 - 4.9 mmol/L [facility] Chloride 101 97 - 110 mmol/L [facility] CO2 27 22 - 32 mmol/L [facility] Anion gap 9 2 - 15 mmol/L [facility] BUN 20 6 - 25 mg/dL [facility] Creatinine 1.36(H) 0.80 - 1.30 mg/dL [facility] Glucose 127 70 - 199 mg/dL [facility] Comment: Interpretive Data Fasting glucose [...] Calcium 9.4 8.5 - 10.3 mg/dL [facility] Bilirubin, total 1.2 0.1 - 1.2 mg/dL [facility] Protein, pl 7.0 6.5 - 8.5 g/dL [facility] Albumin 4.0 3.5 - 5.0 g/dL [facility] Alk phos 112 40 - 130 Units/L [facility] ALT 19 7 - 55 Units/L [facility] AST 23 10 - 50 Units/L [facility] Blood 04/24/2025 11:5 4 PM CDT 04/25/2025 12:07 AM CDT us Bay Rawls MD LAB BLOOD ORDERABLES Fi nal Result [facility] Department [place] [address] * eGFR (04/17/2025 11:20 PM CDT) eGFR [...] MD LAB BLOOD ORDERABLES Final Result [facility] Department of Laboratories [place], [place] [id number] * (ABNORMAL) CBC without differential (04/17/2025 11:20 PM CDT) WBC 10.70(H) 3.80 - 9.90 K/cumm Hgb 11.8(L) 13.0 - 17.5 g/dL [facility] Hct 33.6(L) 38.9 - 50.3 % [facility] Plt 194 150 - 400 K/cumm [facility] MPV 11.1 9.1 - 12.3 fL [facility] RBC 3.83(L) 4.30 - 5.80 M/cumm [facility] MCV 87.7 81.3 - 96.4 fL [facility] MCH 30.8 27.1 - 33.3 pg [facility] MCHC 35.1 32.3 - 35.7 g/dL [facility] RDW CV 13.0 11.1 - 14.9 % [facility] RDW SD 41.1 35.7 - 48.1 fL [facility] NRBC abs 0.00 0.00 - 0.01 K/cumm [facility] Blood 04/17/2025 11:2 0 PM CDT 04/18/2025 12:17 AM CDT Elmer Boyce MD LAB BLOOD ORDERABLES Final Result [facility] [place] [address] * Basic metabolic panel (04/17/2025 11:20 PM CDT) Sodium 137 135 - 145 mmol/L Potassium, pl 4.3 3.3 - 4.9 mmol/L [facility] Chloride 97 97 - 110 mmol/L [facility] CO2 28 22 - 32 mmol/L [facility] Anion gap 12 2 - 15 mmol/L [facility] BUN 21 6 - 25 mg/dL [facility] Creatinine 1.23 0.80 - 1.30 mg/dL [facility] Glucose 147 70 - 199 mg/dL [facility] Comment: Interpretive Data Fasting glucose [...] Calcium 8.9 8.5 - 10.3 mg/dL [facility] Blood 04/17/2025 11:2 0 PM CDT 04/18/2025 12:16 AM CDT Elmer Boyce MD LAB BLOOD ORDERABLES Final Result [facility] [place] [address] * POCT glucose (04/17/2025 2:59 PM CDT) Glucose, POC 136 70 - 199 mg/dL Blood 04/17/2025 2:59 PM CDT 04/17/2025 2:59 PM CDT us Elmer Boyce MD LAB POCT ORDERABLES - DEVICE Final Result Performing Organization Address [facility] Co de Phone Number [facility] [place] [address] * Surgical pathology (04/17/2025 12:13 PM CDT) Tissue (Prostate, Prostatectomy) 04/17/2025 12:13 PM CDT Tissue specimen (specimen) (Lymph node, dissection/region al resection) 04/17/2025 12:13 PM CDT Narrative PATHOLOGY [facility] - 04/23/2025 12:03 PM CDT EPIC results best viewed via link to PDF [facility] [place] [address] Note to Patients: This report may contain [...] Gender: M : 1955 (Age: 69) Address: [address] [place] [id number] [facility] #: [id number] Taken:04/17/2025 Received:04/17/2025 Reported: 04/23/2025 Patient Type: [facility] Inpatient Service: Surgery Location: [facility] [address]00 Physician(s): Elmer Boyce M.D. Keagan Saldana M.D. Diagnosis: A. Prostate, radical prostatectomy - Prostatic acinar adenocarcinoma, [place] Score 3+4=7 (10-20% pattern 4), grade group [...] slides(and/or other material indicated in the diagnosis). Rdaha Lerma M.D., PH.D. Report Electronically Reviewed and [...] radially sectioned; a six-left base margin radially sectioned.[id number] posterior, apex to base (A9 location of biopsy clip); [id number]-[id number]-dxpe posterior, apex to base; [id number] anterior base (slice 1), middle slice three, [...] B5-B 6-one lymph node in two cassettes; F7-G4-mqubwpsbt fat. Jar 0. donta/04/18/2025 14:35 Gross Resident:Vicky Lovelace M.D. PA(s): Margarita Acosta M.D. Nila Palaniappan, M.D. CANCER CASE SUMMARY FOR CARCINOMA OF THE PROSTATE GLAND Procedure: Radical prostatectomy Prostate size: Weight: 70.4g Size: 4.9 x 4.5 x 4.9 cm Histologic Type: Acinar adenocarcinoma, conventional (usual) Histologic Grade: Grade Group and [place] Score: Grade group 2 (Ivan Score 3+4=7) [...] Surgical Pathology and Flow Cytometry Departments at [facility] as part of an ongoing water quality specialist program and in compliance with federally mandated [...] Surgical Pathology and Flow Cytometry Departments of [facility]. It has not been cleared or approved by the U. S. Food and Drug Administration. IMAGES AND SCANNED DOCUMENTS, IF INCLUDED, ONLY VIEWABLE IN PDF VERSION OF REPORT us Elmre Boyce MD LAB PATHOLOGY ORDERAB LES Final Result PATHOLOGY [facility] 3rd Floor [place], [place] [phone] * WI AN ELECTIVE ENDOTRACHEAL AIRWAY, WI AN PROCEDURE PLACEHOLDER (04/17/2025 8:59 AM CDT) [...] POCT ORDERABLES - DEVICE Final Result [facility] Department of Laboratories [place], [place] [id number] * Check Sample (04/17/2025 7:10 AM CDT) ABO Rh A Positive [facility] HCLL OTHER 04/17/2025 7:10 AM CDT 04/17/2025 7:21 AM CDT Elmer Boyce MD LAB BLOOD ORDERABLES Final Result Performing Organization Address City/[facility]/ZIP Co de Phone Number [facility] Department [place] [address] [facility] * TYPE AND SCREEN 14 DAY (04/03/2025 12:12 PM CDT) ABO Rh A Positive Virgilio, indirect Negative [facility] Blood 04/03/2025 12:1 2 PM CDT 04/03/2025 1:33 PM CDT Narrative [facility] - 04/03/2025 2:27 PM CDT Is this test being ordered in advance for a procedure?->Yes Expected date of procedure:->04/17/25 Has the patient been transfused in the past 3 months?->No Kalani Wagner NP LAB BLOOD BANK TEST ORD ERABLES Final Result Performing Organization Address [facility] Co de Phone Number [facility] Department [place] [address] * eGFR (04/03/2025 12:12 PM CDT) Pathologist [facility] eGFR 73 >=60 mL/min/1. 73 m2 Comment: [...] 04/03/2025 1:37 PM CDT us Kalani Wagner INCUBATOR MACHINE OPERATOR LAB BLOOD ORDERABLES Fi nal Result [facility] [place] [address] * Differential, auto (04/03/2025 12:12 PM CDT) Neutrophil abs 6.16 1.50 - 6.50 K/cumm Imm gran abs 0.03 0.00 - 0.10 K/cumm [facility] Lymphocyte abs 1.77 0.80 - 3.30 K/cumm [facility] Monocyte abs 0.58 0.20 - 0.80 K/cumm [facility] Eosinophil abs 0.26 0.00 - 0.50 K/cumm [facility] Basophil abs 0.03 0.00 - 0.10 K/cumm [facility] Neutrophil pct 69.9 % [facility] Comment: Interpretive Data Percent cell count reference ranges are not reported, since discordance with absolute values may lead to misinterpretation of CBC data. Current Interpretive Data was last revised on 2018. Imm gran pct 0.3 % [facility] Comment: Interpretive Data Percent cell count reference ranges are not reported, since discordance with absolute values may lead to misinterpretation of CBC data. Current Interpretive Data was last revised on 2018. Lymphocyte pct 20.0 % [facility] Comment: Interpretive Data Percent cell count reference ranges are not reported, since discordance with absolute values may lead to misinterpretation of CBC data. Current Interpretive Data was last revised on 2018. Monocyte pct 6.6 % [facility] Comment: Interpretive Data Percent cell count reference ranges are not reported, since discordance with absolute values may lead to misinterpretation of CBC data. Current Interpretive Data was last revised on 2018. Eosinophil pct 2.9 % [facility] Comment: Interpretive Data Percent cell count reference ranges are not reported, since discordance with absolute values may lead to misinterpretation of CBC data. Current Interpretive Data was last revised on 2018. Basophil pct 0.3 % [facility] Comment: Interpretive Data Percent cell count reference ranges are not reported, since discordance with absolute values may lead to misinterpretation of CBC data. Current Interpretive Data was last revised on 2018. Blood 04/03/2025 12:1 2 PM CDT 04/03/2025 1:38 PM CDT Kalani Wagner INCUBATOR MACHINE OPERATOR LAB BLOOD ORDERABLES Fi nal Result [facility] [place] [address] * CBC with auto differential (04/03/2025 12:12 PM CDT) WBC 8.83 3.80 - 9.90 K/cumm Hgb 15.4 13.0 - 17.5 g/dL [facility] Hct 44.4 38.9 - 50.3 % [facility] Plt 210 150 - 400 K/cumm [facility] MPV 10.9 9.1 - 12.3 fL [facility] RBC 5.02 4.30 - 5.80 M/cumm [facility] MCV 88.4 81.3 - 96.4 fL [facility] MCH 30.7 27.1 - 33.3 pg [facility] MCHC 34.7 32.3 - 35.7 g/dL [facility] RDW CV 12.9 11.1 - 14.9 % [facility] RDW SD 41.5 35.7 - 48.1 fL [facility] NRBC abs 0.00 0.00 - 0.01 K/cumm [facility] Blood 04/03/2025 12:1 2 PM CDT 04/03/2025 1:38 PM CDT Kalani Wagner INCUBATOR MACHINE OPERATOR LAB BLOOD ORDERABLES Fi nal Result Performing Organization Address City/[facility]/ZIP Co de Phone Number [facility] [place] [address] * Urine culture Urine, clean voided (04/03/2025 12:12 PM CDT) Pathologist [facility] Report Final Report: Less than 100,000 colonies/mL (clinically insignificant growth based on current clinical standards) Organism (CLINICALLY INSIGNIFICANT GROWTH [facility] Urine, clean voided 04/03/2025 12:12 PM CDT 04/03/2025 1:27 PM CDT Narrative [facility] - 04/04/2025 2:51 PM CDT Testing performed by [facility] Microbiology Laboratory ([phone]) Kalani Wagner INCUBATOR MACHINE OPERATOR LAB MICROBIOLOGY - GENE RAL ORDERABLES Final Result Performing Organization Address [facility] de Phone Number [facility] Department [place] [address] * Basic metabolic panel (04/03/2025 12:12 PM CDT) Pathologist [facility] Sodium 138 135 - 145 mmol/L Potassium, pl 3.8 3.3 - 4.9 mmol/L [facility] Chloride 101 97 - 110 mmol/L [facility] CO2 29 22 - 32 mmol/L [facility] Anion gap 8 2 - 15 mmol/L [facility] BUN 25 6 - 25 mg/dL [facility] Creatinine 1.10 0.80 - 1.30 mg/dL [facility] Glucose 90 70 - 199 mg/dL [facility] Comment: Interpretive Data Fasting glucose [...] Calcium 9.4 8.5 - 10.3 mg/dL [facility] Blood 04/03/2025 12:1 2 PM CDT 04/03/2025 1:37 PM CDT Kalani Wagner INCUBATOR MACHINE OPERATOR LAB BLOOD ORDERABLES Fi nal Result [facility] Department [place] [address] * ECG 12 lead (04/03/2025 11:57 AM CDT) Pathologist [facility] Ventricular Rate EKG/Min 53 BPM [facility] Atrial Rate 53 BPM [facility] WI-Interval (MSEC) 206 ms [facility] QRS-Interval (MSEC) 90 ms [facility] QT-Interval (MSEC) 416 ms [facility] QTc 390 ms [facility] P [place] 54 degrees [facility] R [place] 54 degrees [facility] T [place] 62 degrees [facility] Diagnosis Sinus bradycardia Otherwise normal ECG When compared with ECG of 27-NOV-2021 08:37, no significant change Confirmed by UMU MENDEZ M.D ([id number]) on 04/04/2025 8:23:01 AM [facility] 04/03/2025 11:5 7 AM CDT 04/04/2025 8:23 AM CDT us Kalani Wagner INCUBATOR MACHINE OPERATOR ECG ORDERABLES Final R esult Performing Organization Address City/[facility]/ZIP Co de Phone Number [facility] * PET/CT Prostate Cancer PSMA Skull [...] EXAMINATION: PSMA-PET/CT DATE OF STUDY: 02/14/2025 SCANNER: [facility] [employer] (SQ1). This is a high-resolution scanner, which [...] obtained. The study was interpreted on the [employer] workstation. The total scanned area was mid [...] EXAMINATION: PSMA-PET/CT DATE OF STUDY: 02/14/2025 SCANNER: [facility] iTOK (SQ1). This is a high-resolution scanner, which [...] obtained. The study was interpreted on the [employer] workstation. The total scanned area was mid [...] Hipolito Alvarado M.D. RW T: Report ID: [id number] Reading Location: [id number] Procedure Note Hipolito Alvarado MD - 02/07/2025 [...] Hipolito Alvarado M.D. RW T: Report ID: [id number] Reading Location: [id number] Radha Walton INCUBATOR MACHINE OPERATOR IMG XR PROCEDURES Final Re sult * (ABNORMAL) PSA diagnostic (11/26/2024 11:57 AM PATIENT APPOINTMENT COORDINATOR) PSA-Total 8.78(H) <=5.40 ng/mL Comment: Interpretive Data [...] revised 22. Blood 11/26/2024 11:5 7 AM PATIENT APPOINTMENT COORDINATOR 11/26/2024 7:57 PM PATIENT APPOINTMENT COORDINATOR us Luther Cameron MD LAB BLOOD ORDERABLES Fi nal Result Performing Organization Address City/State/ZIP Co or Phone Number [facility] [address] [facility] Department [place] [address] * Colonoscopy (08/16/2024 11:00 AM PATIENT APPOINTMENT COORDINATOR) Anatomical Region Laterality Modality Other Narrative Procedure Note Sarah Motta DO - 08/16/2024 11:00 AM CST [facility] Patient Name: Sarah Martinez Procedure Date: 08/16/2024 11:00AM Date of : 1955 Admit Type: Outpatient Age: 68 Gender: Male Attending MD: Sarah Motta D.O. Room: [facility] ENDOSCOPY ROOM 3 Note Status: Finalized Patient [...] scope was passed under direct vision. TheColonoscope [id number] was introduced through the anus and advanced [...] 11:00 AM Procedure Code(s): --- Professional --- 29579, Colonoscopy, flexible; diagnostic, including collection of specimen(s) by brushing or washing, when performed (separateprocedure) --- Technical --- 43905, Colonoscopy, flexible; diagnostic, including collection of specimen(s) by brushing or washing, when performed (separateprocedure) Diagnosis Code(s): --- Professional --- Z86.010, Personal history of colonic polyps K64.8, Other hemorrhoids K57.30, Diverticulosis of large intestine without perforation orabscess without bleeding --- Technical --- Z86.010, Personal history of colonic polyps K64.8, Other hemorrhoids K57.30, Diverticulosis of large intestine without perforation orabscess without bleeding CPT copyright 2020 [employer]. All rights reserved. The codes documented in this report are preliminary and upon gift manager reviewmay be revised to meet current compliance requirements. Recognized by the [employer] for promoting quality in endoscopy Sarah Motta DO ENDOSCOPY PROCEDURES Final Res ult * Hepatitis C antibody (11/05/2020 9:30 AM PATIENT APPOINTMENT COORDINATOR) Hep C Ab Nonreactive Nonreactive [facility] [...] 2019. Blood specimen (specimen) 11/05/2020 9:30 AM PATIENT APPOINTMENT COORDINATOR 11/05/2020 12:22 PM PATIENT APPOINTMENT COORDINATOR Keagan Saldana MD LAB MICROBIOLOGY - GENERA L ORDERABLES Final Result [facility] [id number] [address] Department [place] [address] from Last 3 Months or Most Recently Relevant to Health Maintenance Insurance MEDICARE [facility] FOR LIFE MEDICARE FOR LIFE Advance Directives For more information, please contact: [phone] * Full Code (Latest Code Status on [...] 7:26 AM 08/22/2023 7:26 AM Care Teams Clinical Documentation Developer Relationship Specialty Start Date End Date Keagan Saldana MD [address] [place] [address] PCP - General Family Medicine 11/05/20 Mikel Villeda MD [address] [place] [address] Surgeon Plastic Surgery 11/23/21 Alan Medina MD [address] [place] [address] Solar Design Engineer Cardiology 11/23/21 Wali Boyce MD [address] [place] [id number] Urologist Urology 11/23/21 Antonio Reddy MD [address] [place] [address] Urologist Urology 11/23/21 Andrea Sam MD [address] [place] [address] Merchandiser Retail Representative Gastroenterology 11/23/21 Sony Marina MD PhD [address] [place] [id number] Radiation Oncologist Radiation Oncology 02/01/25 [place] [address] [facility] [address] [place] [address] Consulting Physician Urology 02/01/25
--- OUTSIDE RECORDS SUMMARY | 2025-04-28 20:37 | XMS_ITS | Clinical Summary ---
Author Organization [facility] Medical [facility] 1 Address [address] [place] [address] Care Team Providers Care Nylon Winder Name Role Phone Keagan Saldana MD Primary Care Provider [phone] Mikel Villeda MD Unavailable [phone] Alan Medina MD Unavailable [phone] Wali Boyce MD Unavailable [phone] Antonio Reddy MD Unavailable [phone] Andrea Sam MD Unavailable [phone] Sony Marina MD PhD Unavailable [phone] Luther Cameron MD Unavailable [phone] Allergies Active Allergy Reactions Criticality Noted Date [...] 11/04/2023 Assessment & Plan (11/04/2023 10:57 AM FEED MIXER HELPER): Pepcid 40 mg at bedtime Esophagram Dermatochalasis [...] 06/29/2023 Assessment & Plan (11/04/2023 10:56 AM FEED MIXER HELPER): Pepcid 40 mg at bedtime Esophagram Neck [...] anxiety Assessment & Plan (11/24/2022 2:09 PM FEED MIXER HELPER): Generally well controlled, though occasionally has episodes, [...] pain Assessment & Plan (11/24/2022 2:11 PM FEED MIXER HELPER): Has joint pain in multiple sites; notes [...] (09/09/2022): Added automatically from request for surgery [id number] Seasonal allergic rhinitis due to pollen 022 Assessment & Plan (07/26/2022 10:58 AM CDT): Nasal saline spray (Simply saline, Little Remedies, Tucker, Paton) 2 second sprays or 2 squeezes into [...] Nasal saline spray (Simply saline, Little Remedies, Tucker, Paton) 2 second sprays or 2 squeezes into [...] 07/26/2022 Assessment & Plan (11/04/2023 10:56 AM FEED MIXER HELPER): Pepcid 40 mg at bedtime Esophagram Laryngopharyngeal reflux discussed and Handout provided Assessment & Plan (07/26/2022 11:00 AM CDT): Call if no improvement for trial of Pepcid LPR discussed and Handout provided Dupuytren's contracture of left hand 11/17/2021 Overview (11/17/2021): Added automatically from request for surgery [id number] History of colonic polyps 03/11/2021 Overview (03/11/2021): Added automatically from request for surgery [id number] S/P cervical spinal fusion 02/03/2021 Assessment & [...] nodules Assessment & Plan (11/05/2020 9:46 AM FEED MIXER HELPER): Seen on CTA for monitoring thoracic aortic aneurysm -continue to monitor, stable in size -no history of tobacco use, no pulmonary symptoms. BPH (benign prostatic hyperplasia) 06/19/2020 Overview (06/19/2020): Added automatically from request for surgery [id number] Assessment & Plan (06/19/2024 2:15 PM CDT): [...] b.i.d. Assessment & Plan (11/24/2022 2:09 PM FEED MIXER HELPER): Stable, well controlled; good flow with urination; [...] daily Assessment & Plan (11/24/2022 2:07 PM FEED MIXER HELPER): Stable, well controlled; blood pressure at target [...] medicine Assessment & Plan (11/09/2021 8:25 PM FEED MIXER HELPER): Blood pressure at target today, no signs or symptoms of hypotention Continue lisinopril 2.5 mg daily Assessment & Plan (05/06/2021 10:54 AM CDT): Stable, well controlled, continue lisinopril 2.5 mg Assessment & Plan (11/05/2020 9:43 AM FEED MIXER HELPER): Well controlled, bp at target today though [...] dose. Assessment & Plan (11/05/2020 9:42 AM FEED MIXER HELPER): Well controlled with Lexapro 20 mg; will [...] diet Assessment & Plan (11/24/2022 2:07 PM FEED MIXER HELPER): Stable, well controlled; continue atorvastatin 20 mg [...] therapy Assessment & Plan (11/05/2020 9:42 AM FEED MIXER HELPER): Stable, tolearting statin therapy well -continue atorvastatin [...] PM CDT): Stable, well controlled; follows with [facility] Continue to monitor for any changes [...] 10:58 AM CDT): Patient following with Dr. aCmeron, urology. Had prostate cancer in 2017, and [...] with Urology, continue to monitor PSA Biopsy [place] 6, patient in active surveillance of prostate cancer Assessment & Plan (02/03/2021 3:55 PM CDT): Briefly reviewed results of biopsy with patient, patient to follow-up with urology for further recommendations Assessment & Plan (11/05/2020 9:41 AM FEED MIXER HELPER): Stable, following with urology for management -patient [...] Type Department Care Team Description 04/26/2025 Telephone [facility] Surgery [address] [place] [address] Yudith Jones 04/26/2025 Telephone [facility] [address] [address] Keagan Saldana MD Symptom Based Call 04/26/2025 ISABEL ED Outreach [facility] Care [address] [address] Gillian Lee MA 04/24/2025 10:33 PM CDT - 04/25/2025 3:13 AM CDT Emergency [facility] Emergency Department [address] [place] [address] Bob Ríos MD Abdominal pain (Primary Dx); Urinary problem in male Discharge Disposition: Discharge to home or self care 04/19/2025 ISABEL IP Outreach [facility] Care [address] [address] Barb Colon LPN 04/18/2025 Orders Only [facility] Urology [address] [facility] Medical Office Building [address] [place] [phone] Elmer Boyce MD Prostate cancer (HCC) (Primary Dx) 04/17/2025 8:30 AM CDT - 04/17/2025 12:30 PM CDT Surgery [facility] Operating Room 1 [place] [address] Elmer Boyce MD XI PROSTATECTOMY - LAPAROSCOPIC ROBOTIC ASSISTED 04/17/2025 8:30 AM CDT Anesthesia Event [facility] Operating Room 1 [place] [phone] Deisy Etienne MD Kraenzle, Elliott 04/17/2025 6:31 AM CDT - 04/18/2025 12:58 PM CDT Hospital Encounter [address] [address] Elmer Boyce MD Prostate cancer (HCC) Discharge Disposition: Discharge to home or self care 04/03/2025 10:30 AM CDT Pre-Admission Testing [facility] Center for Preoperative Assessment and Planning [facility] ([facility]) [address] [place] [address] Preoperative testing (Primary Dx); Urination frequency 02/15/2025 Results Follow-Up [facility] Urology [address] [facility] Office Building [address] [place] [phone] Elmer Boyce MD PET/CT Prostate Cancer PSMA Skull to Thigh 02/14/2025 12:39 PM CDT - 02/14/2025 11:59 PM CDT Hospital Encounter [facility] - PET [address] [facility] 8 [place], [place] [phone] Discharge Disposition: Discharge to home or self care 02/14/2025 12:38 PM CDT - 02/14/2025 11:59 PM CDT Hospital Encounter [facility] - PET [address] [facility] Floor 8 [place] [address] Prostate cancer (HCC) Discharge Disposition: Discharge to home or self care 02/07/2025 10:35 AM CDT Ancillary Procedure [facility] Imaging at [address] [phone] Acute cough 02/07/2025 Results Follow-Up [facility] Con[facility]ient Care at [address] [phone] Feliz Floyd NP XR Chest Pa Lateral 2 Views 02/04/2025 Telephone [facility] Urology [id number] [place] [address] Medical Office Building 1 [place] [address] Luther Cameron MD 02/02/2025 11:00 AM CDT Office Visit [facility] Convenient Care at [address] [address] Radha Walton NP Acute cough (Primary Dx) 02/01/2025 10:00 AM CDT Consult [facility] Radiation Oncology [address] [place] [address] Sony Marina MD PhD Prostate cancer (HCC) (Primary Dx); Malignant neoplasm of prostate (HCC) 02/01/2025 Orders Only [facility] Urology [facility] Medical Office Building [address] [place] [phone] Elmer Boyce MD Prostate cancer (HCC) (Primary Dx) 02/01/2025 Orders Only [facility] Urology [address] [place] [address] Medical Office Building [address] [place] [phone] Elmer Boyce MD 02/01/2025 Telephone [facility] Surgery [address] [place] [address] Gwen Kay EMT 01/31/2025 10:20 AM CDT Office Visit [facility] Urology [address] [facility] Medical Office Building [address] [place] [phone] Elmer Boyce MD Prostate cancer (HCC) (Primary [...] 08/16/2024, 06/16/2021 Medical Devices Implanted Type Area Oil Distributor Tender Device Identifier Shelf Expiration Date Model / Serial / Lot Plate Plate Cervical-Th oracic Spine Description:Plate x 5 Screw Screw Cervical-Th oracic Spine Description:Screw x 10 [employer] [id number] Urolift Implant Urological - [id number] Implanted:Qty: 3 on 07/24/2020 by Luther Cameron MD at [facility] N/A: Urethra [employer] 09/02/2021 [id number] / / [id number] [employer] Ortholoc 47mm 3di Fusion Low Profile Compression Slot Foot Right [id number] - [id number] Implanted:Qty: 1 on 09/02/2023 by Marcello Storey Jr., MD at [facility] Right: First Toe [employer] [id number] / / [employer] Ortholoc 3di 3.5mm 38mm Low Profile Self Tapping Threaded [id number] - [id number] Implanted:Qty: 1 on 09/02/2023 by Marcello Storey Jr., MD at [facility] Right: First Toe [employer] [id number] / / [employer] Ortholoc 3.5mm 2.8mm 16mm Lock On [place] Polyaxial Self Tap Midfoot [id number] - [id number] Implanted:Qty: 2 on 09/02/2023 by Marcello Storey Jr., MD at [facility] Right: First Toe [employer] [id number] / / [employer] Ortholoc 3.5mm 2.5mm 26mm Low Profile Head Self Tap Midfoot [id number] - [id number] Implanted:Qty: 1 on 09/02/2023 by Marcello Storey Jr., MD at [facility] Right: First Toe [employer] [id number] / / [employer] Ortholoc 3.5mm 2.8mm 18mm Lock On [place] Polyaxial Self Tap Midfoot [id number] - [id number] Implanted:Qty: 1 on 09/02/2023 by Marcello Storey Jr., MD at [facility] Right: First Toe [employer] [id number] / / [employer] Ortholoc 3.5mm 2.5mm 20mm Low Profile Head Self Tap Midfoot [id number] - [id number] Implanted:Qty: 1 on 09/02/2023 by Marcello Storey Jr., MD at [facility] Right: First Toe [employer] [id number] / / Procedures Procedure Name Priority Date/Time [...] 12 :13 PM CDT Prostate cancer (HCC) [place] AN PROCEDURE PLACEHOLDER Routine 04/17/2025 8:59 AM CDT [place] AN ELECTIVE ENDOTRACHEAL AIRWAY Routine 04/17/2025 8:59 [...] cough PSA DIAGNOSTIC Routine 11/26/2024 11:57 AM FEED MIXER HELPER Hypogonadism in male Prostate cancer (HCC) COLONOSCOPY 08/16/2024 11:00 AM FEED MIXER HELPER HEPATITIS C ANTIBODY Routine 11/05/2020 9:30 AM FEED MIXER HELPER Encounter to establish care from Last 3 Months or Most Recently Relevant to Health Maintenance Results * (ABNORMAL) Urinalysis reflex to microscopic and culture Urine (04/25/2025 1:51 AM CDT) Color, ur Yellow Yellow Clarity, ur Clear Clear [facility] Specific gravity, ur 1.022 1.003 - 1.030 [facility] pH, urine 6.0 [facility] Comment: Interpretive Data U rine pH is affected by diet, medications, systemic acid-base disturbances, and renal tubular function. pH may affect urinary stone formation. For example, urine pH below 6.0 may help reduce the tendency for calcium phosphate stones and pH greater than 6.0 may reduce the tendency for uric acid stone formation. Source: [employer] Current Interpretive Data was last revised on 2017 Protein, ur ql Negative Negative [facility] Glucose, ur ql Negative Negative [facility] Ketones, ur Negative Negative [facility] Bilirubin, ur Negative Negative [facility] Blood, ur 3+(A) Negative [facility] Urobilinogen, ur <2.0 <2.0 mg/dL [facility] Nitrite, ur Negative Negative [facility] Leukocyte esterase, ur 1+(A) Negative [facility] UA reflex comment Reflex to microscopic UA will be performed. [facility] Urine 04/25/2025 1:51 AM CDT 04/25/2025 1:56 AM CDT Bay Rawls MD LAB MICROBIOLOGY - GENE RAL ORDERABLES Final Result Performing Organization Address [facility] Co de Phone Number [facility] [place] [address] * (ABNORMAL) Urinalysis, microscopic only (04/25/2025 1:51 AM CDT) WBC, ur 21-50(A) 0 - 5 /HPF RBC, ur 6-10(A) 0 - 2 /HPF [facility] Epithelial cells, squamous, ur 1-5 0 - 5 /HPF [facility] Epithelial cells, transitional, ur 1-5 0 - 0 /HPF [facility] Bacteria, ur Trace(A) [facility] Mucous, ur Present(A) [facility] Hyaline casts, ur 1-5 0 - 10 /LPF [facility] Culture Reflex Comment Reflex to urine culture will be performed. [facility] Urine 04/25/2025 1:51 AM CDT 04/25/2025 1:56 AM CDT Bay Rawls MD LAB URINE ORDERABLES Fi nal Result Performing Organization Address [facility]/ZIP Co de Phone Number [facility] [place] [address] * Urine culture Urine (04/25/2025 1:51 AM CDT) Report Final Report: No growth Urine 04/25/2025 1:51 AM CDT 04/25/2025 4:07 AM CDT Narrative [facility] - 04/26/2025 6:55 AM CDT Urine culture reflexed based upon urinalysis results. Testing performed by [facility] Microbiology Laboratory ([phone]) Bay Rawls MD LAB MICROBIOLOGY - GENE RAL ORDERABLES Final Result Performing Organization Address City/[facility]/ZIP Co de Phone Number [facility] Department [place] [address] * (ABNORMAL) eGFR (04/24/2025 11:54 PM CDT) [...] ORDERABLES Fi nal Result Performing Organization Address [facility]/ZIP Co de Phone Number [facility] Department [place] [address] * (ABNORMAL) Differential, auto (04/24/2025 11:54 PM CDT) Pathologist [facility] Neutrophil abs 12.16(H) 1.50 - 6.50 K/cumm Imm gran abs 0.07 0.00 - 0.10 K/cumm [facility] Lymphocyte abs 1.06 0.80 - 3.30 K/cumm [facility] Monocyte abs 0.73 0.20 - 0.80 K/cumm [facility] Eosinophil abs 0.46 0.00 - 0.50 K/cumm [facility] Basophil abs 0.04 0.00 - 0.10 K/cumm [facility] Neutrophil pct 83.7 % [facility] Comment: Interpretive Data Percent cell count reference ranges are not reported, since discordance with absolute values may lead to misinterpretation of CBC data. Current Interpretive Data was last revised on 2018. Imm gran pct 0.5 % [facility] Comment: Interpretive Data Percent cell count reference ranges are not reported, since discordance with absolute values may lead to misinterpretation of CBC data. Current Interpretive Data was last revised on 2018. Lymphocyte pct 7.3 % [facility] Comment: Interpretive Data Percent cell count reference ranges are not reported, since discordance with absolute values may lead to misinterpretation of CBC data. Current Interpretive Data was last revised on 2018. Monocyte pct 5.0 % [facility] Comment: Interpretive Data Percent cell count reference ranges are not reported, since discordance with absolute values may lead to misinterpretation of CBC data. Current Interpretive Data was last revised on 2018. Eosinophil pct 3.2 % [facility] Comment: Interpretive Data Percent cell count reference ranges are not reported, since discordance with absolute values may lead to misinterpretation of CBC data. Current Interpretive Data was last revised on 2018. Basophil pct 0.3 % [facility] Comment: Interpretive Data Percent cell count reference ranges are not reported, since discordance with absolute values may lead to misinterpretation of CBC data. Current Interpretive Data was last revised on 2018. Blood 04/24/2025 11:5 4 PM CDT 04/25/2025 12:06 AM CDT Bay Rawls MD LAB BLOOD ORDERABLES Fi nal Result Performing Organization Address [facility] Co de Phone Number [facility] [place] [address] * (ABNORMAL) CBC with auto differential (04/24/2025 11:54 PM CDT) WBC 14.52(H) 3.80 - 9.90 K/cumm Hgb 12.4(L) 13.0 - 17.5 g/dL [facility] Hct 36.7(L) 38.9 - 50.3 % [facility] Plt 264 150 - 400 K/cumm [facility] MPV 10.6 9.1 - 12.3 fL [facility] RBC 4.04(L) 4.30 - 5.80 M/cumm [facility] MCV 90.8 81.3 - 96.4 fL [facility] MCH 30.7 27.1 - 33.3 pg [facility] MCHC 33.8 32.3 - 35.7 g/dL [facility] RDW CV 13.6 11.1 - 14.9 % [facility] RDW SD 44.1 35.7 - 48.1 fL [facility] NRBC abs 0.00 0.00 - 0.01 K/cumm [facility] Blood 04/24/2025 11:5 4 PM CDT 04/25/2025 12:06 AM CDT Bay Rawls MD LAB BLOOD ORDERABLES Fi nal Result [facility] Department [place] [address] * Protime-INR (04/24/2025 11:54 PM CDT) PT 12.5 9.7 - 13.0 sec INR 1.15 0.90 - 1.20 [facility] Comment: Interpretive data Oral anticoagulant therapeutic ranges: Venous thromboembolism prophylaxis or treatment: 2.0-3.0 CARDIOLOGY Standard range: 2.0-3.0 High-intensity range: 2.5-3.5 Refer to indication-specific guidelines for appropriate target ranges for prosthetic heart valve replacement. Current interpretive data was last revised on 2019. Blood 04/24/2025 11:5 4 PM CDT 04/25/2025 12:16 AM CDT Bay Rawls MD LAB BLOOD ORDERABLES Fi nal Result Performing Organization Address City/[facility]/ZIP Co de Phone Number [facility] Department [place] [address] * (ABNORMAL) Lipase (04/24/2025 11:54 PM CDT) Pathologist [facility] Lipase 9(L) 10 - 99 Units/L Blood 04/24/2025 11:5 4 PM CDT 04/25/2025 12:07 AM CDT Bay Rawls MD LAB BLOOD ORDERABLES Fi nal Result Performing Organization Address City/[facility] de Phone Number [facility] Department [place] [address] * (ABNORMAL) Comprehensive metabolic panel (04/24/2025 11:54 PM CDT) [facility] Sodium 137 135 - 145 mmol/L Potassium, pl 4.2 3.3 - 4.9 mmol/L [facility] Chloride 101 97 - 110 mmol/L [facility] CO2 27 22 - 32 mmol/L [facility] Anion gap 9 2 - 15 mmol/L [facility] BUN 20 6 - 25 mg/dL [facility] Creatinine 1.36(H) 0.80 - 1.30 mg/dL [facility] Glucose 127 70 - 199 mg/dL [facility] Comment: Interpretive Data Fasting glucose >/= 126 [...] Calcium 9.4 8.5 - 10.3 mg/dL [facility] Bilirubin, total 1.2 0.1 - 1.2 mg/dL [facility] Protein, pl 7.0 6.5 - 8.5 g/dL [facility] Albumin 4.0 3.5 - 5.0 g/dL [facility] Alk phos 112 40 - 130 Units/L [facility] ALT 19 7 - 55 Units/L [facility] AST 23 10 - 50 Units/L [facility] Blood 04/24/2025 11:5 4 PM CDT 04/25/2025 12:07 AM CDT Bay Rawls MD LAB BLOOD ORDERABLES nal Result [facility] Department [place] [address] * eGFR (04/17/2025 11:20 PM CDT) eGFR [...] BLOOD ORDERABLES Final Result Performing Organization Address City/[facility]/ZIP Co de Phone Number [facility] [place] [address] * (ABNORMAL) CBC without differential (04/17/2025 11:20 PM CDT) [facility] WBC 10.70(H) 3.80 - 9.90 K/cumm Hgb 11.8(L) 13.0 - 17.5 g/dL [facility] Hct 33.6(L) 38.9 - 50.3 % [facility] Plt 194 150 - 400 K/cumm [facility] MPV 11.1 9.1 - 12.3 fL [facility] RBC 3.83(L) 4.30 - 5.80 M/cumm [facility] MCV 87.7 81.3 - 96.4 fL [facility] MCH 30.8 27.1 - 33.3 pg [facility] MCHC 35.1 32.3 - 35.7 g/dL [facility] RDW CV 13.0 11.1 - 14.9 % [facility] RDW SD 41.1 35.7 - 48.1 fL [facility] NRBC abs 0.00 0.00 - 0.01 K/cumm [facility] Blood 04/17/2025 11:2 0 PM CDT 04/18/2025 12:17 AM CDT Elmer Boyce MD LAB BLOOD ORDERABLES Final Result Performing Organization Address City/[facility]/ZIP Co de Phone Number [facility] Department [place] [address] * Basic metabolic panel (04/17/2025 11:20 PM CDT) Sodium 137 135 - 145 mmol/L Potassium, pl 4.3 3.3 - 4.9 mmol/L [facility] Chloride 97 97 - 110 mmol/L [facility] CO2 28 22 - 32 mmol/L [facility] Anion gap 12 2 - 15 mmol/L [facility] BUN 21 6 - 25 mg/dL [facility] Creatinine 1.23 0.80 - 1.30 mg/dL [facility] Glucose 147 70 - 199 mg/dL [facility] Comment: Interpretive Data Fasting glucose >/= 126 [...] 2022. Calcium 8.9 8.5 - 10.3 mg/dL [facility] Blood 04/17/2025 11:2 0 PM CDT 04/18/2025 12:16 AM CDT Elmer Boyce MD LAB BLOOD ORDERABLES Final Result Performing Organization Address City/[facility]/ZIP Co de Phone Number [facility] Department [place] [address] * POCT glucose (04/17/2025 2:59 PM CDT) Glucose, POC 136 70 - 199 mg/dL Blood 04/17/2025 2:59 PM CDT 04/17/2025 2:59 PM CDT Elmer Boyce MD LAB POCT ORDERABLES - DEVICE Final Result Performing Organization Address [facility]/State/ZIP Co de Phone Number [facility] Department [place] [address] * Surgical pathology (04/17/2025 12:13 PM CDT) Tissue (Prostate, Prostatectomy) 04/17/2025 12:13 PM CDT Tissue specimen (specimen) (Lymph node, dissection/region al resection) 04/17/2025 12:13 PM CDT Narrative PATHOLOGY [facility] - 04/23/2025 12:03 PM CDT EPIC results best viewed via link to PDF [facility] Aysha Pat[facility] [place] [address] Note to Patients: This report may contain [...] Gender: M : 1955 (Age: 69) Address: [address] [place], [place] [phone] Hospital #: [id number] Taken:04/17/2025 Received:04/17/2025 Reported: 04/23/2025 Patient Type: [facility] Inpatient Service: Surgery Location: [facility] 654 Physician(s): Elmer Boyce M.D. Keagan Saldana M.D. Diagnosis: A. Prostate, radical prostatectomy - Prostatic acinar adenocarcinoma, [place] Score 3+4=7 (10-20% pattern 4), grade group [...] radially sectioned; a six-left base margin radially sectioned.[id number] posterior, apex to base (A9 location of biopsy clip); [id number]-[id number] posterior, apex to base; [id number]-yvche anterior base (slice 1), middle slice three, [...] B5-B 6-one lymph node in two cassettes; J9-Z1-opnsyaepl fat. Jar 0. [facility]/04/18/2025 14:35 Gross Resident:Vicky Lovelace M.D. PA(s): Margarita Acosta M.D. Nila Palaniappan, M.D. CANCER CASE SUMMARY FOR CARCINOMA OF THE PROSTATE GLAND Procedure: Radical prostatectomy Prostate size: Weight: 70.4g Size: 4.9 x 4.5 x 4.9 cm Histologic Type: Acinar adenocarcinoma, conventional (usual) Histologic Grade: Grade Group and [place] Score: Grade group 2 ([place] Score 3+4=7) Percentage of Pattern 4: 11-20% [...] Surgical Pathology and Flow Cytometry Departments at [facility] as part of an ongoing fuel quality [...] Surgical Pathology and Flow Cytometry Departments of The [facility]. It has not been cleared or approved by the U. S. Food and Drug Administration. IMAGES AND SCANNED DOCUMENTS, IF INCLUDED, ONLY VIEWABLE IN PDF VERSION OF REPORT us Elmer Boyce MD LAB PATHOLOGY ORDERAB LES Final Result PATHOLOGY [facility] 3rd Floor [place], [place] [phone] * [place] AN ELECTIVE ENDOTRACHEAL AIRWAY, [place] AN PROCEDURE PLACEHOLDER (04/17/2025 8:59 AM CDT) [...] - DEVICE Final Result Performing Organization Address [facility] Co de Phone Number [facility] Department [place] [address] * Check Sample (04/17/2025 7:10 AM CDT) ABO Rh A Positive [facility] HCLL OTHER 04/17/2025 7:10 AM CDT 04/17/2025 7:21 AM CDT us Elmer Bocye MD LAB BLOOD ORDERABLES Final Result Performing Organization Address City/[facility] Co de Phone Number [facility] Department [place] [address] BJ * TYPE AND SCREEN 14 DAY (04/03/2025 12:12 PM CDT) ABO Rh A Positive Virgilio, indirect Negative [facility] Blood 04/03/2025 12:1 2 PM CDT 04/03/2025 1:33 PM CDT Narrative [facility] - 04/03/2025 2:27 PM CDT Is this test being ordered in advance for a procedure?->Yes Expected date of procedure:->04/17/25 Has the patient been transfused in the past 3 months?->No Kalani Wagner NP LAB BLOOD BANK TEST ORD ERABLES Final Result Performing Organization Address [facility]/ZIP Co de Phone Number [facility] [place] [address] * eGFR (04/03/2025 12:12 PM CDT) Pathologist [facility] [place] eGFR 73 >=60 mL/min/1. 73 m2 Comment: [...] CDT 04/03/2025 1:37 PM CDT Kalani Wagner CLASSIFIED ADVERTISING SUPERVISOR LAB BLOOD ORDERABLES Fi nal Result Performing Organization Address [facility]/ZIP Co de Phone Number [facility] Department [place] [address] * Differential, auto (04/03/2025 12:12 PM CDT) Neutrophil abs 6.16 1.50 - 6.50 K/cumm Imm gran abs 0.03 0.00 - 0.10 K/cumm [facility] Lymphocyte abs 1.77 0.80 - 3.30 K/cumm [facility] Monocyte abs 0.58 0.20 - 0.80 K/cumm [facility] Eosinophil abs 0.26 0.00 - 0.50 K/cumm [facility] Basophil abs 0.03 0.00 - 0.10 K/cumm [facility] Neutrophil pct 69.9 % [facility] Comment: Interpretive Data Percent cell count reference ranges are not reported, since discordance with absolute values may lead to misinterpretation of CBC data. Current Interpretive Data was last revised on 2018. Imm gran pct 0.3 % [facility] Comment: Interpretive Data Percent cell count reference ranges are not reported, since discordance with absolute values may lead to misinterpretation of CBC data. Current Interpretive Data was last revised on 2018. Lymphocyte pct 20.0 % [facility] Comment: Interpretive Data Percent cell count reference ranges are not reported, since discordance with absolute values may lead to misinterpretation of CBC data. Current Interpretive Data was last revised on 2018. Monocyte pct 6.6 % [facility] Comment: Interpretive Data Percent cell count reference ranges are not reported, since discordance with absolute values may lead to misinterpretation of CBC data. Current Interpretive Data was last revised on 2018. Eosinophil pct 2.9 % [facility] Comment: Interpretive Data Percent cell count reference ranges are not reported, since discordance with absolute values may lead to misinterpretation of CBC data. Current Interpretive Data was last revised on 2018. Basophil pct 0.3 % [facility] Comment: Interpretive Data Percent cell count reference ranges are not reported, since discordance with absolute values may lead to misinterpretation of CBC data. Current Interpretive Data was last revised on 2018. Blood 04/03/2025 12:1 2 PM CDT 04/03/2025 1:38 PM CDT Kalani Wagner NP LAB BLOOD ORDERABLES Fi nal Result Performing Organization Address [facility]/ZIP Co de Phone Number [facility] Department [place] [address] * CBC with auto differential (04/03/2025 12:12 PM CDT) Pathologist [facility] [place] WBC 8.83 3.80 - 9.90 K/cumm Hgb 15.4 13.0 - 17.5 g/dL [facility] Hct 44.4 38.9 - 50.3 % [facility] Plt 210 150 - 400 K/cumm [facility] MPV 10.9 9.1 - 12.3 fL [facility] RBC 5.02 4.30 - 5.80 M/cumm [facility] MCV 88.4 81.3 - 96.4 fL [facility] MCH 30.7 27.1 - 33.3 pg [facility] MCHC 34.7 32.3 - 35.7 g/dL [facility] RDW CV 12.9 11.1 - 14.9 % [facility] RDW SD 41.5 35.7 - 48.1 fL [facility] NRBC abs 0.00 0.00 - 0.01 K/cumm [facility] Blood 04/03/2025 12:1 2 PM CDT 04/03/2025 1:38 PM CDT Kaalni Wagner CLASSIFIED ADVERTISING SUPERVISOR LAB BLOOD ORDERABLES Fi nal Result Performing Organization Address [facility] Co de Phone Number [facility] Department [place] [address] * Urine culture Urine, clean voided (04/03/2025 12:12 PM CDT) Pathologist [facility] [place] Report Final Report: Less than 100,000 colonies/mL (clinically insignificant growth based on current clinical standards) Organism (CLINICALLY INSIGNIFICANT GROWTH [facility] Urine, clean voided 04/03/2025 12:12 PM CDT 04/03/2025 1:27 PM CDT Narrative [facility] - 04/04/2025 2:51 PM CDT Testing performed by [facility] Microbiology [facility] ([phone]) Kalani Wagner NP LAB MICROBIOLOGY - GENE RAL ORDERABLES Final Result Performing Organization Address [facility]/ZIP Co de Phone Number [facility] Department [place] [address] * Basic metabolic panel (04/03/2025 12:12 PM CDT) [facility] Sodium 138 135 - 145 mmol/L Potassium, pl 3.8 3.3 - 4.9 mmol/L [facility] Chloride 101 97 - 110 mmol/L [facility] CO2 29 22 - 32 mmol/L [facility] Anion gap 8 2 - 15 mmol/L [facility] BUN 25 6 - 25 mg/dL [facility] Creatinine 1.10 0.80 - 1.30 mg/dL [facility] Glucose 90 70 - 199 mg/dL [facility] Comment: Interpretive Data Fasting glucose >/= 126 [...] 2022. Calcium 9.4 8.5 - 10.3 mg/dL [facility] Blood 04/03/2025 12:1 2 PM CDT 04/03/2025 1:37 PM CDT Kalani Wagner NP LAB BLOOD ORDERABLES Fi nal Result Performing Organization Address [facility]/ZIP Co de Phone Number [facility] Department [place] [address] * ECG 12 lead (04/03/2025 11:57 AM CDT) Ventricular Rate EKG/Min 53 BPM [facility] Atrial Rate 53 BPM [facility] [place]-Interval (MSEC) 206 ms [facility] QRS-Interval (MSEC) 90 ms [facility] QT-Interval (MSEC) 416 ms [facility] QTc 390 ms [facility] P [place] 54 degrees [facility] R [place] 54 degrees [facility] T [place] 62 degrees [facility] Diagnosis Sinus bradycardia Otherwise normal ECG When compared with ECG of 27-NOV-2021 08:37, no significant change Confirmed by UMU MENDEZ M.D ([id number]) on 04/04/2025 8:23:01 AM [facility] 04/03/2025 11:5 7 AM CDT 04/04/2025 8:23 AM CDT us Kalani Wagner CLASSIFIED ADVERTISING SUPERVISOR ECG ORDERABLES Final R esult [facility] * PET/CT Prostate Cancer PSMA Skull [...] EXAMINATION: PSMA-PET/CT DATE OF STUDY: 02/14/2025 SCANNER: [facility] thredUPa (SQ1). This is a high-resolution scanner, which can result in higher SUVs (and even detection of previously unrecognized small lesions) compared to older scanners. RADIOPHARMACEUTICAL: 10.37 mCi F-18 DCFPyL (Piflufolastat) i.v. Injection site: Right forearm HISTORY: 69-year-old man with prostate cancer diagnosed on 01/07/2025, [place] Score 4+4 = 8, involving the right [...] obtained. The study was interpreted on the Xeko workstation. The total scanned area was mid [...] EXAMINATION: PSMA-PET/CT DATE OF STUDY: 02/14/2025 [facility] ([facility]). This is a high-resolution scanner, which can result in higher SUVs (and even detection of previously unrecognized small lesions) compared to older scanners. RADIOPHARMACEUTICAL: 10.37 mCi F-18 DCFPyL (Piflufolastat) i.v. Injection site: Right forearm HISTORY: 69-year-old man with prostate cancer diagnosed on 01/07/2025, [place] Score 4+4 = 8, involving the right [...] obtained. The study was interpreted on the Xeko workstation. The total scanned area was mid [...] Hipolito Alvarado M.D. RW T: Report ID: [id number] Reading Location: [id number] Procedure Note Hipolito Alvarado MD - 02/07/2025 [...] Hipolito Alvarado M.D. RW T: Report ID: [id number] Reading Location: [id number] us Radha Walton CLASSIFIED ADVERTISING SUPERVISOR IMG XR PROCEDURES Final Re sult * (ABNORMAL) PSA diagnostic (11/26/2024 11:57 AM FEED MIXER HELPER) PSA-Total 8.78(H) <=5.40 ng/mL Comment: Interpretive Data [...] revised 22. Blood 11/26/2024 11:5 7 AM FEED MIXER HELPER 11/26/2024 7:57 PM FEED MIXER HELPER us Luther Cameron MD LAB BLOOD ORDERABLES Fi nal Result [facility] [address] Department [place] [address] * Colonoscopy (08/16/2024 11:00 AM FEED MIXER HELPER) Anatomical Region Laterality Modality Other Narrative Procedure Note Sarah Motta, - 08/16/2024 11:00 AM CST [facility] Patient Name: Sarah Martinez Procedure Date: 08/16/2024 11:00AM Date of : 1955 Admit Type: Outpatient Age: 68 Gender: Male Attending MD: Sarah Motta D.O. Room: [facility] ENDOSCOPY ROOM 3 Note Status: [...] scope was passed under direct vision. TheColonoscope [id number] was introduced through the anus and advanced [...] 11:00 AM Procedure Code(s): --- Professional --- 55575, Colonoscopy, flexible; diagnostic, including collection of specimen(s) by brushing or washing, when performed (separateprocedure) --- Technical --- 77368, Colonoscopy, flexible; diagnostic, including collection of specimen(s) by brushing or washing, when performed (separateprocedure) Diagnosis Code(s): --- Professional --- Z86.010, Personal history of colonic polyps K64.8, Other hemorrhoids K57.30, Diverticulosis of large intestine without perforation orabscess without bleeding --- Technical --- Z86.010, Personal history of colonic polyps K64.8, Other hemorrhoids K57.30, Diverticulosis of large intestine without perforation orabscess without bleeding CPT copyright 2020 [employer] [employer]. All rights reserved. The codes documented in this report are preliminary and upon house wirer reviewmay be revised to meet current compliance requirements. Recognized by the [place] [employer] for promoting quality in endoscopy us Sarah T. Klucka DO ENDOSCOPY PROCEDURES Final Res ult * Hepatitis C antibody (11/05/2020 9:30 AM FEED MIXER HELPER) Hep C Ab Nonreactive Nonreactive [facility] BRAUN [...] 2019. Blood specimen (specimen) 11/05/2020 9:30 AM FEED MIXER HELPER 11/05/2020 12:22 PM FEED MIXER HELPER Keagan Sladana MD LAB MICROBIOLOGY - GENERA L ORDERABLES Final Result [facility] [address] Department [place] [address] from Last 3 Months or Most Recently Relevant to Health Maintenance Insurance MEDICARE [employer] Advance Directives For more information, please contact: [phone] * Full Code (Latest Code Status on [...] 7:26 AM 08/22/2023 7:26 AM Care Teams Nylon Winder Relationship Specialty Start Date End Date Keagan Saldana MD [address] [place] [address] PCP - General Family Medicine 11/05/20 Mikel Villeda MD [address] [place] [address] Surgeon Plastic Surgery 11/23/21 Alan Medina MD [address] [place] [address] Roofing Contractor Cardiology 11/23/21 Wali Boyce MD [address] [place] [address] Urologist Urology 11/23/21 Antonio Reddy MD [address] [place] [address] Urologist Urology 11/23/21 Andrea Sam MD [address] [place] [address] [place] [address] Blender/Braze Applicator Gastroenterology 11/23/21 Sony Mairna MD PhD [address] [place] [address] Radiation Oncologist Radiation Oncology 02/01/25 [place] [address] [address] Consulting Physician Urology 02/01/25
--- OUTSIDE RECORDS SUMMARY | 2025-04-28 20:37 | XMS_ITS | Clinical Summary ---
Author Organization [facility] Address [address] [place] [address] Care Team Providers Care Manager Grocery Name Role Phone Alan Medina MD Unavailable [phone] Keagan Saldana MD Primary Care Provider [phone] Allergies Active Allergy Reactions Criticality Noted Date [...] pt will get that paperwork through the Reviewspotter guard. Orthopedic aftercare 04/15/2025 Mild cognitive impairment [...] time. Assessment & Plan (09/03/2024 1:27 PM ON SITE PROPERTY MANAGER): He has a bicuspid aortic valve with [...] testing. Assessment & Plan (09/13/2022 5:12 PM ON SITE PROPERTY MANAGER): I recommended that he get an echocardiogram to reassess his aortic valve. I do not hear a murmur. If his echo is stable, would consider exercise stress testing. Arthritis of right foot 09/09/2022 Overview (09/03/2024): Added automatically from request for surgery [id number] Laryngeal spasm 07/26/2022 Rhinitis medicamentosa 07/26/2022 Seasonal allergic rhinitis due to pollen 022 Cough 05/21/2022 Dupuytren's contracture of left hand 11/17/2021 Overview (09/03/2024): Added automatically from request for surgery [id number] BPH (benign prostatic hyperplasia) 06/19/2020 Overview (09/03/2024): Added automatically from request for surgery [id number] Gastroesophageal reflux disease without esophagi tis 08/21/2019 Prostate cancer ([facility]) 08/21/2019 Major depressive disorder 08/21/2019 Thoracic aortic aneurysm without rupture 019 Assessment & Plan (04/15/2025 12:39 PM CDT): Last CTA chest showed a stable aneurysm. Recommend repeating at this time. Continue blood pressure control. He is not currently requiring any antihypertensive therapy. Assessment & Plan (09/03/2024 1:28 PM ON SITE PROPERTY MANAGER): His aneurysm is stable. Continue blood pressure management. Assessment & Plan (01/31/2024 8:02 AM CDT): He had a CTA chest 09/2021 that showed an aneurysm of 4.3 cm. Recommend repeat CTA for surveillance. Would benefit from strict BP control. Assessment & Plan (09/13/2022 5:13 PM ON SITE PROPERTY MANAGER): He had a CTA chest last year that showed an aneurysm of 4.3 cm. Continue with echocardiogram. We can consider CTA next year, if his echo is stable. History of chest pain 08/21/2019 AR (congenital aortic regurgitation) ([facility]) 1 10/21/2018 Assessment & Plan (09/03/2024 1:39 PM ON SITE PROPERTY MANAGER): Most recent echo shows mild to moderate aortic regurgitation. No diastolic murmur auscultated. Can repeat echo next year. Assessment & Plan (01/31/2024 8:03 AM CDT): Recommend echo to evaluate aortic valve given symptoms. If unremarkable, consider stress test given risk factors. Assessment & Plan (09/13/2022 5:12 PM ON SITE PROPERTY MANAGER): Recommend echo to evaluate aortic valve. Essential hypertension 08/21/2019 Assessment & Plan (04/15/2025 12:40 PM CDT): BP is well controlled. Previously on lisinopril, but now not on antihypertensive therapy due to hypotensive episodes. Assessment & Plan (09/03/2024 1:42 PM ON SITE PROPERTY MANAGER): BP is well controlled. Previously on lisinopril, but now not on antihypertensive therapy. Assessment & Plan (01/31/2024 8:03 AM CDT): BP low. C/o dizziness. Advised to stop lisinopril. Increase fluid intake. Mixed hyperlipidemia 08/21/2019 Assessment & Plan (04/15/2025 12:42 PM CDT): Last lipid panel is well-controlled. Continue atorvastatin. Assessment & Plan (09/03/2024 1:42 PM ON SITE PROPERTY MANAGER): Continue atorvastatin. Heart palpitations 08/21/2019 Diverticulosis of [...] AM CDT Office Visit [facility], [address] [address] Zandra Olmstead, ABIGAIL Follow Up (Aortic Regurgitation) [...] Info) Description 05/01/2025 9:00 AM CDT Appointment [facility] [place] [address] Zandra Olmstead PA 3 [facility], [address] [address] 05/01/2025 10:30 AM CDT Appointment [facility] [place] [address] Zandra Olmstead PA 3 [facility], [address] [address] 07/18/2025 10:15 AM CDT Office Visit [facility], [place] [address] [place] [address] Zandra Olmstead PA 3 [facility], [address] [place] [address] Health Maintenance Due Date Last Done Comments [...] AND patient risk factors. Referred By: SRINIVASAN AGN Interpreted By: Héctor Asencio MD, 02/08/2024 6:46 AM Srinivasan Ang PA-C CT Final Resul t from Last 3 Months or Most Recently Relevant to Health Maintenance Insurance MEDICARE [facility] Care Teams Manager Grocery Relationship Specialty Start Date End Date Keagan Saldana MD [address] [place] [address] PCP - General FAMILY PRACTICE 01/30/24 Alan Medina MD [facility]. [facility] [address] [place] [address] Carrie Ski Lift Mechanic INTERVENTIONAL CARDIOLOGY 08/06/19
--- OUTSIDE RECORDS SUMMARY | 2025-04-28 20:37 | XMS_ITS ---
Author Organization [facility] Medical [facility] 1 Address [address] [place] [address] Care Team Providers Care System Analyst Name Role Phone Keagan Saldana MD Primary Care Provider [phone] Mikel Villeda MD Unavailable [phone] Alan Medina MD Unavailable [phone] Wali Boyce MD Unavailable [phone] Antonio Reddy MD Unavailable [phone] Andrea Sam MD Unavailable [phone] Sony Marina MD PhD Unavailable [phone] Luther Cameron MD Unavailable [phone] Active Problems Problem Noted Date Diagnosed Date [...] 11/04/2023 Assessment & Plan (11/04/2023 10:57 AM INSTRUCTOR PSYCHIATRIC AIDE): Pepcid 40 mg at bedtime Esophagram Dermatochalasis [...] 06/29/2023 Assessment & Plan (11/04/2023 10:56 AM INSTRUCTOR PSYCHIATRIC AIDE): Pepcid 40 mg at bedtime Esophagram Neck [...] anxiety Assessment & Plan (11/24/2022 2:09 PM INSTRUCTOR PSYCHIATRIC AIDE): Generally well controlled, though occasionally has episodes, [...] pain Assessment & Plan (11/24/2022 2:11 PM INSTRUCTOR PSYCHIATRIC AIDE): Has joint pain in multiple sites; notes [...] (09/09/2022): Added automatically from request for surgery [id number] Seasonal allergic rhinitis due to pollen 022 Assessment & Plan (07/26/2022 10:58 AM CDT): Nasal saline spray (Simply saline, Little Remedies, [place], [place]) 2 second sprays or 2 squeezes into [...] Nasal saline spray (Simply saline, Little Remedies, [place], [place]) 2 second sprays or 2 squeezes into [...] 07/26/2022 Assessment & Plan (11/04/2023 10:56 AM INSTRUCTOR PSYCHIATRIC AIDE): Pepcid 40 mg at bedtime Esophagram Laryngopharyngeal reflux discussed and Handout provided Assessment & Plan (07/26/2022 11:00 AM CDT): Call if no improvement for trial of Pepcid LPR discussed and Handout provided Dupuytren's contracture of left hand 11/17/2021 Overview (11/17/2021): Added automatically from request for surgery [id number] History of colonic polyps 03/11/2021 Overview (03/11/2021): Added automatically from request for surgery [id number] S/P cervical spinal fusion 02/03/2021 Assessment & [...] nodules Assessment & Plan (11/05/2020 9:46 AM INSTRUCTOR PSYCHIATRIC AIDE): Seen on CTA for monitoring thoracic aortic aneurysm -continue to monitor, stable in size -no history of tobacco use, no pulmonary symptoms. BPH (benign prostatic hyperplasia) 06/19/2020 Overview (06/19/2020): Added automatically from request for surgery [id number] Assessment & Plan (06/19/2024 2:15 PM CDT): [...] b.i.d. Assessment & Plan (11/24/2022 2:09 PM INSTRUCTOR PSYCHIATRIC AIDE): Stable, well controlled; good flow with urination; [...] daily Assessment & Plan (11/24/2022 2:07 PM INSTRUCTOR PSYCHIATRIC AIDE): Stable, well controlled; blood pressure at target [...] medicine Assessment & Plan (11/09/2021 8:25 PM INSTRUCTOR PSYCHIATRIC AIDE): Blood pressure at target today, no signs or symptoms of hypotention Continue lisinopril 2.5 mg daily Assessment & Plan (05/06/2021 10:54 AM CDT): Stable, well controlled, continue lisinopril 2.5 mg Assessment & Plan (11/05/2020 9:43 AM INSTRUCTOR PSYCHIATRIC AIDE): Well controlled, bp at target today though [...] dose. Assessment & Plan (11/05/2020 9:42 AM INSTRUCTOR PSYCHIATRIC AIDE): Well controlled with Lexapro 20 mg; will [...] diet Assessment & Plan (11/24/2022 2:07 PM INSTRUCTOR PSYCHIATRIC AIDE): Stable, well controlled; continue atorvastatin 20 mg [...] therapy Assessment & Plan (11/05/2020 9:42 AM INSTRUCTOR PSYCHIATRIC AIDE): Stable, tolearting statin therapy well -continue atorvastatin [...] PM CDT): Stable, well controlled; follows with [facility] Continue to monitor for any changes [...] recommendations Assessment & Plan (11/05/2020 9:41 AM INSTRUCTOR PSYCHIATRIC AIDE): Stable, following with urology for management -patient [...]
--- NOTE | 2025-04-28 21:04 | PC.NURSE ---
exposed anna cath cleaned with normal saline. inserted farther into patient to the Y. anna balloon deflated and reinflated. then anna cath secured to stat lock. bright yellow urine continues to drain into tubing to gravity bag. pt denies pain during procedure. this procedure completed per erp directions
[2025-04-28 21:31] LABS: Glucose Urine UA Trace (Negative); Leukocyte Esterase Ur Negative LEU/UL (Negative); Nitrate Urine Positive (Negative); Specific Grav Ur 1.010 (1.010-1.020)
[2025-04-28 21:38] LABS: Add Urine Microscopic? YES
[2025-04-28 21:39] LABS: Appearance Urine Cloudy (Clear)
[2025-04-28 21:55] VITALS: BP 119/76; PULSE 63; RESP 14; TEMP 36.4; O2SAT 99
--- NOTE | 2025-05-01 12:33 | PC.NURSE ---
final urine culture reviewed. no growth. no change in plan of care.
== END 2025-04-28 21:55 | disposition home or self-care (01) ==
PROVIDERS: Emergency Provider Emergency Medicine; PCP Hospitalist
DX: N39.0 Urinary tract infection, site not specified (principal); T83.011A Breakdown (mechanical) of indwelling urethral catheter, initial encounter; I10 Essential (primary) hypertension; E78.5 Hyperlipidemia, unspecified
CPT/HCPCS: 81001; 87086; 99283